=== PATIENT | male | born 1950 | race Caucasian/White ===

== ENCOUNTER 2023-07-09 13:54 | Observation (INO) ==
--- NOTE | 2023-07-09 14:04 | ED Triage Note ---
Date of Service July 09, 2023 Provider in Triage Author: Madan Randall History of Present Illness This patient was briefly evaluated while in triage. An abbreviated physical exam was performed. This patient is a 73-year-old Male who presents to the ED for evaluation bilateral feet/LE swelling x 2 weeks-redness and drainage in a few toes restricting water intake and increased Lasix in the last few days with no change had left nephrostomy tube placed 06/24, edema started after that Physical Exam GENERAL: NAD CARDIOVASCULAR: RRR RESPIRATORY: CTA EXT: 2+ pitting edema in ankles bilaterally, unable to visualize feet in triage. Initial orders for labs and / or imaging were placed and patient was placed in the waiting area until a bed is available. Please see further documentation for the full ED course.
--- NOTE | 2023-07-09 15:09 | XRay Report ---
XR chest 1V not portable CLINICAL HISTORY: BLE EDEMA COMPARISON STUDY: Chest radiograph December 28, 2022. FINDINGS: Left subclavian pacer/AICD is in place. There are median sternotomy wires and mediastinal s urgical clips. Moderate cardiomegaly is unchanged. There is no pneumothorax or pleural effusion. No c onsolidation is identified to suggest pneumonia. There is no radiographic evidence for pulmonary alise a. IMPRESSION: No acute cardiopulmonary findings. Stable cardiomegaly. ACT 112: Negative or not required by law. Electronically signed by: Biju Lr M.D. 07/09/2023 3:07 PM
[2023-07-09 15:21] LABS: Alanine Aminotransferase 33 U/L (7-52); Albumin Globulin Ratio 1.4 (0.9-2); Albumin Level 4.3 gm/dl (3.4-5.0); Alkaline Phosphatase 86 U/L (34-104); Anion Gap 8 (3-11); Aspartate Aminotransferase 37 U/L (13-39); Bilirubin,Total 0.7 mg/dl (0.2-1.0); Blood Urea Nitrogen 36 mg/dl (6-23); Carbon Dioxide 33 mmol/L (21-32); Chloride 103 mmol/L (98-107); Est GFR (Non-African American) 36.3 ml/min; Globulin 3.1 gm/dl (2.5-4.0); Glucose 100 mg/dl (70-99(Fasting)); Potassium 3.8 mmol/L (3.5-5.1); Sodium 144 mmol/L (136-145); Total Protein 7.4 gm/dl (6.0-8.3)
[2023-07-09 15:23] LABS: Basophils # (auto) 0.04 K/uL (0.00-0.20); Basophils % (auto) 0.4 %; Eosinophils % (auto) 0.9 %; Hematocrit (blood only) 40.5 % (42.0-52.0); Hemoglobin 13.3 g/dl (14.0-18.0); Immature Granulocytes # (auto) 0.03 K/uL (0.01-0.20); Immature Granulocytes % (auto) 0.3 %; Lymphocytes # (auto) 3.51 K/uL (1.20-3.40); Lymphocytes % (auto) 33.1 %; Mean Corpuscular Hemoglobin 33.1 pg (25.0-34.0); Mean Corpuscular Hgb Conc 32.8 g/dL (32.0-36.0); Mean Corpuscular Volume 100.7 fL (80.0-100.0); Monocytes % (auto) 6.6 %; Neutrophils # (auto) 6.22 K/uL (1.40-6.50); Neutrophils % (auto) 58.7 %; Platelet Count 288 K/uL (130-400); RDW Coefficient of Variation 15.2 % (11.5-14.5); RDW Standard Deviation 56.2 fL (36.4-46.3); Red Blood Count 4.02 M/uL (4.70-6.10)
[2023-07-09 15:27] LABS: Troponin I High Sensitivity 38.8 pg/ml (0-20)
[2023-07-09 15:36] LABS: INR 1.1 (0.9-1.1); Partial Thromboplastin Time 29 Seconds (21-31); Prothrombin Time 11.6 Seconds (9.0-12.0)
--- NOTE | 2023-07-09 16:57 | Ultrasound Report ---
US venous doppler LE BI CLINICAL HISTORY: BILATERAL LE EDEMA TECHNIQUE: Bilateral lower extremity real-time compression venous ultrasound with Color Doppler imagi ng. Utilizing real-time ultrasonic imaging multiple real time high-resolution ultrasonic images with compression and noncompression maneuvers of the deep venous system in addition to color doppler imagi ng were performed from the common femoral vein through the proximal calf veins. COMPARISON: None available at the time of this dictation. FINDINGS/IMPRESSION: Currently there is normal compressibility of the deep venous system from the common femoral vein thro ugh the proximal calf veins. No superficial venous thrombosis is identified. ACT 112: Negative or not required by law. Electronically signed by: Jay Ricketts M.D. 07/09/2023 4:55 PM
--- NOTE | 2023-07-09 17:42 | Emergency Department Note ---
Impression & Plan Edema, peripheral, SOB (shortness of breath) ED Provider Note NAME: CHETNA CHARLTON AGE: 73 SEX: M : 1950 ARRIVES VIA: Ambulance INFORMANT: Patient, ED PROVIDER(S): Leonardo Park DO CHIEF COMPLAINT: Leg swelling HPI: The patient is a 73-year-old male who presented to the emergency department for evaluation of leg swelling. The patient has a history of a bladder mass. He has a tube in his left kidney to help this drain because they were unable to pass a stent. The patient states has had blood in his urine. He started noticing lower extremity swelling recently. He has been increasing his Lasix. He has had no other changes to his medications. He has had some shortness of breath. The patient denies having any recent trauma. The patient denies having any headaches. ROS: See above HPI for pertinent positives & negatives. A total of 10 systems reviewed and were otherwise negative. PAST MEDICAL HISTORY: See Below PAST SURGICAL HISTORY: See Below FAMILY HISTORY: See Below SOCIAL HISTORY: See Below HOME MEDICATIONS: See Below ALLERGIES: See Below VITALS: See Below PHYSICAL EXAMINATION: GENERAL: Patient is awake alert in no acute distress patient is resting comfortably and showing no signs of anxiety EYES: The conjunctivae are clear. The pupils are round and reactive. EARS, NOSE, MOUTH AND THROAT: The nose is without any evidence of any deformity. NECK: The neck is nontender and supple. RESPIRATORY: Normal respiratory effort is noted there is no evidence of wheezing rhonchi or rales CARDIOVASCULAR: Regular rate and rhythm noted there no murmurs rubs or gallops normal S1 normal S2. GASTROINTESTINAL: The abdomen is soft. Abdomen is nontender. MUSCULOSKELETAL/EXTREMITIES: There is no evidence of gross deformity full range of motion is noted in the hips and shoulders. SKIN: Skin is warm and dry. Pedal edema was noted bilaterally. NEUROLOGIC: Patient is awake alert and oriented x3. MEDICAL DECISION MAKING: The patient is a 73-year-old male who presented to the emergency department for an evaluation of lower extremity swelling. The patient was found to have no acute EKG changes however his cardiac biomarkers were elevated. It is possible at this peripheral edema secondary to an ischemic episode. He does have a history of diabetes as well as peripheral neuropathy. I discussed the patient's laboratory and radiographic studies with him. He was treated with aspirin as well as Lasix in the emergency department. He was reevaluated multiple times. On reevaluation the patient was somewhat improved. I discussed his condition with the on-call [facility] hospitalist. They have agreed to evaluate the patient in the emergency department for further management and disposition. Triage Nursing notes reviewed. Prior medical records reviewed Vital Signs: reviewed and remarkable for no significant abnormalities Differential diagnosis: Reactive airway disease, pneumonia, pneumothorax, COPD, CHF, infections, cardiac ischemia, pulmonary embolism, musculoskeletal, gastrointestinal, as well as other pathologies. ER treatment provided: See below Diagnostics interpreted by me: ECG: EKG was obtained in the emergency department. My interpretation is atrial fibrillation at 95 bpm. PVCs were noted. Nonspecific ST segment depressions were noted. This was compared to a tracing from December 282022. The ectopy was new otherwise no significant changes were noted. Cardiac Monitoring: An order was placed for continuous cardiac monitoring. The monitor shows a rate of 56 bpm with atrial fibrillation. Laboratory studies: As stated above and show below. Imaging studies: See below. Radiographic imaging was reviewed by myself Consultation(s): I discussed this case with Dr. Greer who is on-call for the [facility] hospitalist group. 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 Ortega Dyslipidemia HTN (hypertension) Ischemic cardiomyopathy ICD 09/2021 History of gout CLL (chronic lymphocytic leukemia) known hx x years Diabetes mellitus, type 2 NIDDM Hard of hearing No hearing aids Myocardial Infarction 1996 & 2016 Chronic obstructive pulmonary disease 3L via continuous Bladder carcinoma bcg treatments Surgical History History of bladder surgery TURBT History of anesthesia reaction slow to wake History of bone marrow biopsy Right node Lymph node biopsy (04/23/23)- CLL/SLL, negative for metastatic carcinoma History of colonoscopy H/O wisdom tooth extraction History of tonsillectomy History of adenoidectomy History of cataract surgery bilateral S/P ICD (internal cardiac defibrillator) procedure Implanted 2021>last checked February 2022 ? type S/P ablation of atrial fibrillation S/P angioplasty no stents S/P CABG x 2 2016 Family History Other No family history of adverse response to anesthesia Social History Smoking Status: Former smoker Tobacco Type: Cigarettes Second Hand Exposure: No; Do You Dip or Chew Tobacco: No; Hx Alcohol Use: No Hx Substance Use: No Preferred Language: Sami Communication Ability: Effective Starch Cooker Required: No Beliefs That Will Affect Care: None Current Living Situation: Spouse Feels Safe at Home: Yes Assistive Devices: Oxygen - Continuous and Other Assistive Devices Comment: rollator walker Allergies Allergies Allergy/AdvReac Type Severity Reaction Status Date / Time enalapril Allergy Severe Angioedema Verified 07/09/23 18:50 brimonidine [From Combigan] Allergy Intermediate Hives Verified 07/09/23 18:50 timolol Allergy Intermediate Hives Verified 07/09/23 18:50 Home Meds Home Medications Medication Instructions Recorded Confirmed aspirin 81 mg tablet,delayed 81 mg PO QAM 11/01/22 07/09/23 release atorvastatin 40 mg tablet 40 mg PO PM 11/01/22 07/09/23 budesonide 160 mcg-glycopyr 9 2 inh inhalation BID 11/01/22 07/09/23 mcg-formot 4.8 mcg/actuation HFA inhaler (Breztri Aerosphere) calcium carbonate 600 mg calcium 600 mg PO QAM 11/01/22 07/09/23 (1,500 mg) tablet carvedilol 3.125 mg tablet 3.125 mg PO BID 11/01/22 07/09/23 cyanocobalamin (vitamin B-12) 1,000 mcg PO QAM 11/01/22 07/09/23 1,000 mcg tablet empagliflozin 10 mg tablet 10 mg PO QAM 11/01/22 07/09/23 (Jardiance) ferrous sulfate 27 mg iron tablet 27 mg PO QAM 11/01/22 07/09/23 furosemide 40 mg tablet (Lasix) 40 mg PO BID 11/01/22 07/09/23 hydralazine 25 mg tablet 25 mg PO TID 11/01/22 07/09/23 nitroglycerin 0.4 mg sublingual 0.4 mg sublingual UD PRN Chest Pain 11/01/22 07/09/23 tablet potassium chloride 20 mEq 20 meq PO QAM 11/01/22 07/09/23 tablet,extended release psyllium husk 3.4 gram/5.4 gram 1 tbsp PO QAM 11/01/22 07/09/23 oral powder (Metamucil) dimenhydrinate 50 mg tablet 50 mg PO Q8H PRN Nausea 12/14/22 07/09/23 (Dramamine) apixaban 5 mg tablet (Eliquis) 5 mg PO BID 05/03/23 07/09/23 acetaminophen 500 mg tablet 1,000 mg PO Q6H PRN Pain 05/09/23 07/09/23 cefadroxil 500 mg capsule 500 mg PO BID 07/09/23 07/09/23 multivitamin 1 tab PO QAM 07/09/23 07/09/23 Results & Data (ED) Vital Signs Vital Signs - 24 hr 07/09/23 14:04 07/09/23 17:52 07/09/23 18:00 Temperature 36.7 C Temperature Source Temporal Artery Scan Pulse Rate 83 100 H Pulse Rate [Left Apical] 83 Respiratory Rate 18 15 22 Respiratory Effort / Characteristics Non-Labored Non-Labored Respiratory Depth Normal Normal Blood Pressure 175/99 H 142/97 H Blood Pressure [Right Arm] 135/81 Blood Pressure Mean 124 112 Blood Pressure Mean [Right Arm] 99 Pulse Oximetry 95 98 93 Oxygen Delivery Method Nasal Cannula Nasal Cannula Nasal Cannula Oxygen Flow Rate 3 3 3 Sepsis Recent Fever Within 48 Hours No Sepsis New/Unexplained Change in Mental Status N/A Sepsis Action Taken by Nursing No Action Required 07/09/23 18:50 07/09/23 18:54 07/09/23 19:30 Temperature Temperature Source Pulse Rate 92 H 95 H 91 H Pulse Rate [Left Apical] Respiratory Rate 19 21 Respiratory Effort / Characteristics Respiratory Depth Blood Pressure 146/90 H Blood Pressure [Right Arm] Blood Pressure Mean 108 Blood Pressure Mean [Right Arm] Pulse Oximetry 94 95 Oxygen Delivery Method Nasal Cannula Nasal Cannula Oxygen Flow Rate 3 3 Sepsis Recent Fever Within 48 Hours Sepsis New/Unexplained Change in Mental Status Sepsis Action Taken by Prison Medications Current Medication List: was personally reviewed by me Laboratory Data Attestation: I reviewed the patient's lab results. 07/09/23 14:30 07/09/23 14:30 Lab Results 07/09/23 07/09/23 07/09/23 Range/Units 14:30 17:41 18:48 WBC 10.60 (4.8-10.8) K/ul RBC 4.02 L (4.70-6.10) M/uL Hgb 13.3 L (14.0-18.0) g/dl Hct 40.5 L (42.0-52.0) % MCV 100.7 H (80.0-100.0) fL MCH 33.1 (25.0-34.0) pg MCHC 32.8 (32.0-36.0) g/dL RDW Std Deviation 56.2 H (36.4-46.3) fL RDW Coeff of Sharmaine 15.2 H (11.5-14.5) % Plt Count 288 (130-400) K/uL MPV 11.0 (9.4-12.4) fL Immature Gran % (Auto) 0.3 % Neut % (Auto) 58.7 % Lymph % (Auto) 33.1 % [place] % (Auto) 6.6 % Eos % (Auto) 0.9 % Baso % (Auto) 0.4 % Neut # (Auto) 6.22 (1.40-6.50) K/uL Lymph # (Auto) 3.51 H (1.20-3.40) K/uL [place] # (Auto) 0.70 H (0.11-0.59) K/uL Eos # (Auto) 0.10 (0.00-0.50) K/uL Baso # (Auto) 0.04 (0.00-0.20) K/uL Immature Gran # (Auto) 0.03 (0.01-0.20) K/uL PT 11.6 (9.0-12.0) Seconds INR 1.1 (0.9-1.1) APTT 29 (21-31) Seconds PTT Ratio 1.0 Sodium 144 (136-145) mmol/L Potassium 3.8 (3.5-5.1) mmol/L Chloride 103 (98-107) mmol/L Carbon Dioxide 33 H (21-32) mmol/L Anion Gap 8 (3-11) BUN 36 H (6-23) mg/dl Creatinine 1.80 H (0.6-1.4) mg/dl Est Cr Clr Drug Dosing Not Reportable Est GFR ( Amer) 42.0 ml/min Est GFR (Non-Af Amer) 36.3 ml/min BUN/Creatinine Ratio 20.0 (10-20) Glucose 100 H (70-99(Fasting)) mg/dl Calcium 10.0 (8.6-10.3) mg/dl Total Bilirubin 0.7 (0.2-1.0) mg/dl AST 37 (13-39) U/L ALT 33 (7-52) U/L Alkaline Phosphatase 86 (34-104) U/L Troponin I High Sens 38.8 H 45.4 H (0-20) pg/ml B-Natriuretic Peptide 446 H (0-100) pg/ml Total Protein 7.4 (6.0-8.3) gm/dl Albumin 4.3 (3.4-5.0) gm/dl Globulin 3.1 (2.5-4.0) gm/dl Albumin/Globulin Ratio 1.4 (0.9-2) Urine Color Yellow Urine Appearance Clear (Clear) Urine pH 7.5 (4.5-7.5) Ur Specific [place] 1.018 (1.000-1.030) Urine Protein Negative (Negative) Urine Glucose (UA) 3+ H (Negative) Urine Ketones Negative (Negative) Urine Blood 1+ H (Negative) Urine Nitrite Negative (Negative) Urine Bilirubin Negative (Negative) Urine Urobilinogen Negative (Negative) Ur Leukocyte Esterase Negative (Negative) Urine WBC (Auto) 1-5 (0-5) /hpf Urine RBC (Auto) >30 H (0-4) /hpf U Hyaline Cast (Auto) 0 (0-5) /lpf U Epithel Cells (Auto) 0-5 (0-5) /lpf Urine Bacteria (Auto) Negative (Negative) Administered Medications Apixaban (Apixaban 5 Mg Tablet) 5 mg PO BID EMILEE Stop: 08/08/23 21:00 Last Admin: 07/09/23 22:34 Dose: 5 mg Documented By: ARSLAN Atorvastatin Calcium (Atorvastatin 40 Mg Tab) 40 mg PO PM EMILEE Stop: 08/08/23 21:00 Last Admin: 07/09/23 22:33 Dose: 40 mg Documented By: ARSLAN Carvedilol (Carvedilol 3.125 Mg Tab) 3.125 mg PO BID EMLIEE Stop: 08/08/23 21:00 Last Admin: 07/09/23 22:34 Dose: 3.125 mg Documented By: ARSLAN Hydralazine HCl (Hydralazine Hcl 25 Mg Tab) 25 mg PO TID EMILEE Stop: 08/08/23 21:00 Last Admin: 07/09/23 22:34 Dose: 25 mg Documented By: ARSLAN Ceftriaxone Sodium 2,000 mg/ (Dextrose) 50 mls @ 100 mls/hr IV Q24H EMILEE Stop: 07/16/23 21:59 Last Admin: 07/09/23 23:14 Dose: 100 mls/hr Documented By: ARSLAN Discontinued Medications Aspirin (Aspirin Chew 324 Mg) 324 mg PO NOW STA Stop: 07/09/23 19:00 Last Admin: 07/09/23 19:04 Dose: 324 mg Documented By: ANDREINA Furosemide (Furosemide 40 Mg/4 Ml Vial) 80 mg IV ONE ONE Stop: 07/09/23 17:38 Last Admin: 07/09/23 17:53 Dose: 80 mg Documented By: ANDREINA Imaging Data Attestation: I personally reviewed and interpreted this imaging study as follows: My Impression: 1 view chest x-ray was obtained in the emergency department. My interpretation is no free air or definite infiltrate, final report below. Radiologist's Impression: Chest X-Ray 07/09/23 14:04 XR chest 1V not portable CLINICAL HISTORY: BLE EDEMA COMPARISON STUDY: Chest radiograph December 28, 2022. FINDINGS: Left subclavian pacer/AICD is in place. There are median sternotomy wires and mediastinal surgical clips. Moderate cardiomegaly is unchanged. There is no pneumothorax or pleural effusion. No consolidation is identified to suggest pneumonia. There is no radiographic evidence for pulmonary edema. IMPRESSION: No acute cardiopulmonary findings. Stable cardiomegaly. ACT 112: Negative or not required by law. Electronically signed by: Biju Lr M.D. 07/09/2023 3:07 PM Venous Doppler Study 07/09/23 14:08 US venous doppler LE BI CLINICAL HISTORY: BILATERAL LE EDEMA TECHNIQUE: Bilateral lower extremity real-time compression venous ultrasound with Color Doppler imaging. Utilizing real-time ultrasonic imaging multiple real time high-resolution ultrasonic images with compression and noncompression maneuvers of the deep venous system in addition to color doppler imaging were performed from the common femoral vein through the proximal calf veins. COMPARISON: None available at the time of this dictation. FINDINGS/IMPRESSION: Currently there is normal compressibility of the deep venous system from the common femoral vein through the proximal calf veins. No superficial venous thrombosis is identified. ACT 112: Negative or not required by law. Electronically signed by: Jay Ricketts M.D. 07/09/2023 4:55 PM Discharge Plan Visit Data Chief Complaint: Swelling/Edema to Extremity Stated Complaint: BLE edema ED Provider: Leonardo Park Discharge Problem: Edema, peripheral, SOB (shortness of breath) Patient Disposition: Admitted As Inpatient Discharge Instructions Interventions: ED Discharge Assessment Last Done: 07/09/23 21:02
[2023-07-09] MEDS: FUROSEMIDE 40 MG/4 ML VIAL IV ONE (17:53)
[2023-07-09] MEDS: ASPIRIN CHEW 324 MG PO STA (19:04)
--- NOTE | 2023-07-09 19:11 | History & Physical Report ---
Date of Service July 09, 2023 Assessment & Plan (1) CAD (coronary artery disease): Plan: Michael is a 73-year-old male with a past medical history of nephrostomy tubes, troponin elevation with demand, A-fib, DM 2, bladder carcinoma, COPD, hypertension, CAD who presented for lower extremity swelling. He was found to have a elevated BNP with lower extremity edema and was given Lasix. He did have a minimally elevated Trope which up trended following Lasix. Extremity edema, history of heart failure with reduced ejection fraction s/p CABG, ICD implantation Without evidence of DVT on Dopplers No pulmonary edema or orthopnea. BNP is elevated at 446, but markedly improved compared to his prior of 1021 Patient feels he clinically improved following a dose of Lasix in the ER, however his troponin up trended. Has not had chest pain at any point. Will fol low overnight for renal stability and troponin trend. -Patient feels greatly improved following 1 dose of IV Lasix, will continue oral Lasix with stasis mobilizationincluding wrapping/ADAIR hose, SCDs, and elevation for at least 20 minutes 3 times daily Last echo with EF 25-30%, severely reduced 10/2022. ICD is present. No chest pain or EKG changes suggestive of ACS, suspect troponin due to demand versus clearance (2) Chronic respiratory failure with hypoxia: Plan: Chronic respiratory failure with COPD Baseline 3 L nasal cannula, no increased oxygen requirement admission Denies orthopnea or increased shortness of breath, no evidence of CHF exacerbation No wheezing to suggest COPD exacerbation Continue chronic treatments (3) Atrial fibrillation: Plan: Atrial fibrillation EKG with A-fib rate 90s no territorial ST/T wave changes on admission Eliquis continued. Patient has some scant blood-tinged drainage into his nephrostomy tube however this has been gradually improved and no large-volume bleeding or clots. Patient does clarify that while this was temporarily held previously he is currently taking this and took his last dose this morning Adequately rate controlled (4) Bladder carcinoma: Plan: Bladder carcinoma S/p TURBT 11/2022 to areas positive for high-grade disease Repeat TURBT 04/2023 with high-grade disease Left ureteral orifice was not able to be located patient had hydro and NYLA, patient subsequently had a nephrostomy tube placed Patient is currently following for ongoing management, anticipating a repeat cystoscopy around August and will follow-up with urology for BCG/Keytruda/gemcitabine/Doxil Taxol evaluation. Cholecystectomy was discussed but patient is a poor surgical candidate and was not recommended. Continue outpatient urologic follow-up Patient was under treatment with cefadroxil x 10-day course, this is continued and 11/09 (5) CLL (chronic lymphocytic leukemia): Plan: CLL Continueoutpatient monitoring, counts stable History of Present Illness Primary Care Provider: Corey Rodriguez is a 73yo M who presents for worsened CHARO edema which is becoming uncomfortabale due to weeping and tense edema. No orthopnea. No cellulitis. No fever/chills. Wroseneing ankle swelling Chronic shortness of breath, no change no chest pressure or chest pain no orthopnea NO recent increased salt intake No DVT Has LEFT nephrostomy tube. Functioning well, little blood but decreasing over time. No surrounding erythema, tenderness or warmth Feels much better since getting lasix. Swelling cuases some weeping which is painful to him. NO signs of cellulitis Has not been able to elevate legs or wrap legs. Does try to ambulate regularly with diabetic socks. Medical History: Reviewed Medications: Reviewed Surgical History: Reviewed Family history: Reviewed Allergies: Reviewed Social History: Reviewed Code Status:FUll COde Allergies Allergy/AdvReac Type Severity Reaction Status Date / Time enalapril Allergy Severe Angioedema Verified 07/09/23 18:50 brimonidine [From Combigan] Allergy Intermediate Hives Verified 07/09/23 18:50 timolol Allergy Intermediate Hives Verified 07/09/23 18:50 Home Medications Medication Instructions Recorded Confirmed Type aspirin 81 mg tablet,delayed 81 mg PO QAM 11/01/22 07/09/23 History release atorvastatin 40 mg tablet 40 mg PO PM 11/01/22 07/09/23 History budesonide 160 mcg-glycopyr 9 2 inh inhalation BID 11/01/22 07/09/23 History mcg-formot 4.8 mcg/actuation HFA inhaler (Breztri Aerosphere) calcium carbonate 600 mg calcium 600 mg PO QAM 11/01/22 07/09/23 History (1,500 mg) tablet carvedilol 3.125 mg tablet 3.125 mg PO BID 11/01/22 07/09/23 History cyanocobalamin (vitamin B-12) 1,000 mcg PO QAM 11/01/22 07/09/23 History 1,000 mcg tablet empagliflozin 10 mg tablet 10 mg PO QAM 11/01/22 07/09/23 History (Jardiance) ferrous sulfate 27 mg iron tablet 27 mg PO QAM 11/01/22 07/09/23 History furosemide 40 mg tablet (Lasix) 40 mg PO BID 11/01/22 07/09/23 History hydralazine 25 mg tablet 25 mg PO TID 11/01/22 07/09/23 History nitroglycerin 0.4 mg sublingual 0.4 mg sublingual UD PRN Chest Pain 11/01/22 07/09/23 History tablet potassium chloride 20 mEq 20 meq PO QAM 11/01/22 07/09/23 History tablet,extended release psyllium husk 3.4 gram/5.4 gram 1 tbsp PO QAM 11/01/22 07/09/23 History oral powder (Metamucil) dimenhydrinate 50 mg tablet 50 mg PO Q8H PRN Nausea 12/14/22 07/09/23 History (Dramamine) apixaban 5 mg tablet (Eliquis) 5 mg PO BID 05/03/23 07/09/23 History acetaminophen 500 mg tablet 1,000 mg PO Q6H PRN Pain 05/09/23 07/09/23 History cefadroxil 500 mg capsule 500 mg PO BID 07/09/23 07/09/23 History multivitamin 1 tab PO QAM 07/09/23 07/09/23 History Past Med/Surg History Medical History (Updated 07/09/23 @ 19:22 by Monico Pearson MD) Chronic respiratory failure with hypoxia CAD (coronary artery disease) CABG x 2 07/2016 Angioplasty 1996 Atrial fibrillation On Eliquis s/p ablation 2017 CKD (chronic kidney disease) Valvular heart disease History of cellulitis Right Great toe- completed antibiotics Swelling and erythema significantly improved but still has mild pain (improved from previous) ICD (implantable cardioverter-defibrillator) in place 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 Ortega Dyslipidemia HTN (hypertension) Ischemic cardiomyopathy ICD 09/2021 History of gout CLL (chronic lymphocytic leukemia) known hx x years Diabetes mellitus, type 2 NIDDM Hard of hearing No hearing aids Myocardial Infarction 1996 & 2017 Chronic obstructive pulmonary disease 3L via continuous Bladder carcinoma bcg treatments Surgical History History of bladder surgery TURBT History of anesthesia reaction slow to wake History of bone marrow biopsy Right node Lymph node biopsy (04/23/23)- CLL/SLL, negative for metastatic carcinoma History of colonoscopy H/O wisdom tooth extraction History of tonsillectomy History of adenoidectomy History of cataract surgery bilateral S/P ICD (internal cardiac defibrillator) procedure Implanted 2021>last checked February 2022 ? type S/P ablation of atrial fibrillation S/P angioplasty no stents S/P CABG x 2 2016 Family History Other No family history of adverse response to anesthesia Social History Smoking Status: Former smoker Tobacco Type: Cigarettes Second Hand Exposure: No; Do You Dip or Chew Tobacco: No; Hx Alcohol Use: No (quit 2010) Preferred Language: B[place] Communication Ability: Effective Crystal Finisher Required: No Beliefs That Will Affect Care: None Current Living Situation: Spouse Feels Safe at Home: Yes Assistive Devices: Oxygen - Continuous and Walker Physical Exam Physical Exam: General: A&Ox3. NAD. Cooperative. HEENT: Atraumatic, normocephalic. Pulm: CTAB A&P. -wheezes, -rales, -rhonchi. Symmetrical chest rise. No increased work of breathing. No respiratory distress. Cardiac: irir. Radial pulses intact and symmetrical. Trace JVD Abdominal: Nontender, nondistended, soft. BS present. L flank with nephrostomy tube intact C/D/I no signs of surroudnign infection Ext: bilate CHARO pitting edema Results & Data Results & Data Vital Signs (Past 12 Hours) Vital Signs Temp Pulse Pulse Resp BP BP Pulse Ox 07/09/23 18:54 95 H 07/09/23 18:50 92 H 19 94 07/09/23 18:00 100 H 22 142/97 H 93 07/09/23 17:52 83 15 135/81 98 07/09/23 14:04 36.7 C 83 18 175/99 H 95 O2 Del Method O2 Flow Rate 07/09/23 18:54 07/09/23 18:50 Nasal Cannula 3 07/09/23 18:00 Nasal Cannula 3 07/09/23 17:52 Nasal Cannula 3 07/09/23 14:04 Nasal Cannula 3 PG Care Time/CCT Total # of Minutes Spent Total Time Spent with Patient: Total time spent is greater than 50% in coordination of care (as documented) at patient's floor/unit and/or counseling patient: Coding Level of Care Code 04912 INT INP/OBS CARE MIN Diagnoses CAD (coronary artery disease) I25.10 Chronic respiratory failure with hypoxia J96.11 Atrial fibrillation I48.91 Bladder carcinoma C67.9 CLL (chronic lymphocytic leukemia) C91.10
[2023-07-09 19:13] LABS: Appearance Urine Clear (Clear); Bacteria Urine Automated Negative (Negative); Bilirubin Urine Negative (Negative); Blood Urine 1+ (Negative); Cast Urine Automated 0 /lpf (0-5); Color Urine Yellow; Epithelial Cell Urine Auto 0-5 /lpf (0-5); Glucose Urine UA 3+ (Negative); Ketones Urine Negative (Negative); Leukocyte Esterase Urine Negative (Negative); Nitrite Urine Negative (Negative); Protein Urine Negative (Negative); RBC Urine Automated >30 /hpf (0-4); Specific Gravity Urine 1.018 (1.000-1.030); Urobilinogen Urine Negative (Negative); pH Urine 7.5 (4.5-7.5)
[2023-07-09] MEDS ORDERED: NON-FORMULARY MEDICATION (Budesonide-Glycopyr-Formoterol [Breztri Aerosphere] 160-9-4.8 mc INH SCH (21:01)
[2023-07-09] MEDS ORDERED: NITROGLYCERIN SL 0.4 MG/TAB TAB SL PRN (21:01)
[2023-07-09] MEDS ORDERED: ACETAMINOPHEN 500 MG TAB PO PRN (21:01)
[2023-07-09] MEDS ORDERED: Patient's HEIGHT &/or WEIGHT Needed STA (21:17)
--- OUTSIDE RECORDS SUMMARY | 2023-07-09 22:03 | External Medical Summary | Continuity of Care Document ---
Author Name Unknown Organization [facility] Address [address] [place] [address] [id number] Encounter [facility] [id number] Date(s): 06/25/23 - 06/25/[address] [id number] [phone] Encounter Diagnosis Unspecified hydronephrosis(Final) - Malignant neoplasm of bladder, unspecified(Final) - Unspecified atrial fibrillation(Final) - Type 2 diabetes mellitus without complications(Final) - Atherosclerotic heart disease of [place] coronary artery without angina pectoris (Final) - Chronic lymphocytic leukemia of B-cell type not having achieved remission(Final) - half-way (current) use of aspirin(Final) - 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(Final) - Discharge Disposition: Home or Self Care Attending Physician: MD Lanette, Judi Banks Referring Physician: MD Carrie, Stef Rayo Allergies, Adverse Reactions, Alerts Substance Reaction Severity Status enalapril angioedema Active timolol hives Active Combigan hives Active Functional Status 06/25/23 Neurological Symptoms None ADLs Minimal assistance Facial Symmetry Symmetric Gait Steady Swallowing Difficulty NPO Level of Consciousness Neuro Alert Hallucinations Present None History of Fall in Last 3 Months Martinez N o Presence of Secondary Diagnosis Martinez No Use of Ambulatory Aid Martinez None/bedrest /nurse assist IV/Heparin Lock Fall Risk Martinez No Gait/Transferring Fall Risk Martinez Normal /bedrest/immobile Mental Status Fall Risk Martinez Oriented t o own ability Martinez Fall Risk Score 0 Martinez Fall Risk No Risk Speech Pattern Clear Medications aspirin 81 mg oral delayed release tablet Start: 06/25/23 9:54:00 EDT, 1 tab, PO, Daily Start Date: 06/25/23 Status: Ordered atorvastatin 40 mg oral tablet Start: 06/25/23 9:54:00 EDT, 1 tab, PO, Daily Start Date: 06/25/23 Status: Ordered Breztri Aerosphere Start: 06/25/23 9:52:00 EDT, 2 puff, inhaled, bid Start Date: 06/25/23 Status: Ordered calcium carbonate Start: 06/25/23 10:00:00 EDT, 600 = mg, PO, Daily Start Date: 06/25/23 Status: Ordered carvedilol 3.125 mg oral tablet Start: 06/25/23 9:55:00 EDT, 1 tab, PO, bid Start Date: 06/25/23 Status: Ordered Eliquis 5 mg oral tablet Start: 06/25/23 9:53:00 EDT, 1 tab, PO, bid Start Date: 06/25/23 Status: Ordered furosemide 40 mg oral tablet Start: 06/25/23 9:56:00 EDT, 1 tab, PO, bid, 1 tab before breakfast; 1 tab before supper Start Date: 06/25/23 Status: Ordered hydrALAZINE 25 mg oral tablet Start: 06/25/23 9:56:00 EDT, 1 tab, PO, tid Start Date: 06/25/23 Status: Ordered iron (as bisglycinate) 28 mg oral capsule Start: 06/25/23 10:02:00 EDT, 1 cap, PO, Daily Start Date: 06/25/23 Status: Ordered Jardiance 10 mg oral tablet Start: 06/25/23 9:52:00 EDT, 1 tab, PO, Daily, Disp# 30 tab Start Date: 06/25/23 Status: Ordered Metamucil 3.4 g/5.2 g oral powder for reconstitution Start: 06/25/23 10:03:00 EDT, 1.7 g =, PO, Daily Start Date: 06/25/23 Status: Ordered nitroglycerin Start: 06/25/23 10:09:00 EDT, See Instructions, 0.4 mg SL PRN Start Date: 06/25/23 Status: Ordered One-A-Day Men's Health Formula Start: 06/25/23 10:11:00 EDT, 1 tab, PO, Daily Start Date: 06/25/23 Status: Ordered potassium chloride 20 mEq oral tablet, extended release Start: 06/25/23 9:59:00 EDT, 1 tab, PO, Daily Start Date: 06/25/23 Status: Ordered Vitamin B12 Start: 06/25/23 10:00:00 EDT, 1,000 mcg =, PO, Daily Start Date: 06/25/23 Status: Ordered Results Laboratory List Name Date Basic Metabolic Panel (BMP) 06/25/23 Prothrombin Time w/ INR (INR) 06/25/23 Complete Blood Count (CBC w Platelets) Glucose Meter (GLUCOSE METER) 06/25/23 Most recent to oldest [Reference Range]: 1 eGFR CKD-EPI [>60 mL/min/1.73 m2] 46 mL/ min/1.73 m2 *LOW* (06/25/23 11:05 AM) MPV [9.0-12.2 fL] 10.8 fL (06/25/23 11:05 AM) RDW [11.5-14.2 %] 15.4 % *HI* (06/25/23 11:05 AM) Anion Gap [5-14 mmol/L] 11 mmol/L (06/25/23 11:05 AM) BUN [6-23 mg/dL] 27 mg/dL *HI* (06/25/23 11:05 AM) Ca [8.4-10.2 mg/dL] 9.4 mg/dL (06/25/23 11:05 AM) Cl- [98-107 mmol/L] 105 mmol/L (06/25/23 11:05 AM) HCO3 [22-29 mmol/L] 28 mmol/L (06/25/23 11:05 AM) Cret [0.70-1.30 mg/dL] 1.58 mg/dL *HI* (06/25/23 11:05 AM) Glu [74-109 mg/dL] 104 mg/dL 1 (06/25/23 11:05 AM) Gluc Meter [74-109 mg/dL] 100 mg/dL (06/25/23 10:29 AM) Hct [39-48 %] 44.1 % (06/25/23 11:05 AM) Hgb [13.0-17.0 g/dL] 14.0 g/dL (06/25/23 11:05 AM) INR [0.9-1.1] 1.2 2 *HI* (06/25/23 11:05 AM) K [3.5-5.1 mmol/L] 4.0 mmol/L (06/25/23 11:05 AM) MCH [28-33 pg] 32.5 pg (06/25/23 11:05 AM) MCHC [32-36 g/dL] 31.7 g/dL *LOW* (06/25/23 11:05 AM) MCV [81-96 fL] 102.3 fL *HI* (06/25/23 11:05 AM) Na [136-145 mmol/L] 144 mmol/L (06/25/23 11:05 AM) Plts [150-350 K/uL] 252 K/uL (06/25/23 11:05 AM) PT [12.0-14.2 seconds] 14.7 seconds *HI* (06/25/23 11:05 AM) RBC [4.40-5.60 M/uL] 4.31 M/uL *LOW* (06/25/23 11:05 AM) WBC [4.0-10.4 K/uL] 10.21 K/uL (06/25/23 11:05 AM) 1Result Comment: ADA recommendation for FASTING Serum/Plasma Glucose: Normal: 70-100 mg/dL Prediabetes: 100-125 mg/dL Diabetes: 126 mg/dL or higher 2Result Comment: Suggested therapeutic range for low-intensity Coumadin therapy for venous thromboembolism is INR 2.0-3.0 (ex: atrial fibrillation, history of TIA/stroke). For high risk patients, the suggested therapeutic range is INR 2.5-3.5 (ex: mechanical prosthetic valves). Radiology Reports * Exam Date Time Procedure Performing Provider Status 06/25/23 2:11 PM IR Neph Tube Placement Roxanne Martinez; Final Notes: (IR Neph Tube Placement) Reason For Exam: requesting left nephrostomy tube as unable to find ureteral orfice in bladder IR Neph Tube Placement EXAMINATION: IR Neph Tube Placement CLINICAL HISTORY: N13.30: Unspecified hydronephrosis; requesting left nephrostomy tube as unable to find ureteral orfice in bladder PROCEDURES: Moderate Sedation, Physician Supervised Percutaneous Antegrade Pyelogram Percutaneous Nephrostomy Placement Ultrasound Guidance for Access HISTORY: 73-year-old male with a history of Unspecified hydronephrosis; Bladder CA INDICATIONS: Urinary Obstruction PHYSICIANS: Judi Gama MD SEDATION: The risks and benefits of moderate sedation were discussed with the patient as part of the procedural informed consent process. Provider supervised intra- procedure moderate sedation was performed using a trained independent observer who monitored the patient's level of sedation and physiologic status throughout the procedure. Pre-procedure and post-procedure sedation assessments were performed inaccordance with institutional sedation policy and are documented separately in the medical record. Total Provider Sedation Supervision Time: 50 minutes. MEDICATIONS: Fentanyl 75 mcg Midazolam 1.50 mg CONTRAST: Omnipaque 350 - 8 ml DOSIMETRY: Fluoroscopy Time: 6.20 min Cumulative Dose: 179 mGy MEASUREMENTS: None. IMPLANTED DEVICES: Cook Multipurpose Drainage Catheter 10.2 FR 45 cm (Reference # [id number] Lot [id number]) SPECIMENS: None. EST. BLOOD LOSS: Minimal ml COMPLICATIONS: None. SUPPORTING DOCUMENTATION: Pre-Procedure Verification (Physician/Provider) [X]: Patient Name and Verified Against Patient ID Band [X]: Written Consent Verified (Patient, Procedure, Site/Side) [X]: Site Marking Verified (keep unchecked if not applicable) [X]: H \T\ P Completed (if required) Documented 06/25/2023 at 11:26:05 By Judi Gama MD Pre-Procedure Verification (Nurse/Technologist) [X]: Patient Name and Verified Against Patient ID Band [X]: Written Consent Verified (Patient, Procedure, Site/Side) [X]: Site Marking Verified (keep unchecked if not applicable) [X]: H \T\ P Verified (if required) Documented 06/25/2023 at 11:26:05 By BIANCA Arriaga Time Out [X]: Patient Identified by Name and [X]: Written Consent Verified (Patient,Procedure, Site/Side) [X]: Patient Positioned Correctly [X]: Patient Records Available (Order, Images) [X]: Anticipated Procedure Equipment / Devices Available [X]: Site / Side Marking Completed (keep unchecked if not applicable) [X]: Preprocedure Medications Administered (Antibiotics,Premedications, or n/a) [X]: All team members are present and are in agreement with Time Out (not documented prior to 08/18/2017). Documented 06/25/2023 at 13:19:33 By BIANCA Carey Physician Post Procedure Sign Out [X]: Diagnosis Confirmed [X]: Performed Procedure Confirmed [ ]: Specimen Identification Confirmed [X]: Patient Recovery / Post Procedure Care Concerns Discussed Documented 06/25/2023 at 14:19:08 By Judi Gama MD TECHNIQUE: The risks, benefits and goals of percutaneous nephrostomy tube placement under conscioussedation were discussed with the patient. Risks include bleeding, infection, injury to adjacent structures and the risks of conscious sedation. The patient desired to proceed and signed informed consent. A time out was performed, verifying patient identity, procedure to be performed and patient allergies. The patient was placed prone on the angiography table. The left flank was prepared and draped in the usual sterile fashion. 1% lidocaine without epinephrine was used as a local anesthetic. Access to the left collecting system was obtained using a 22G InRad needle under ultrasound guidance. Positioning within the renal collecting system was verified with the return of urine. An antegrade pyelogram was performed with injection of contrast into the collecting system, followed by injection of air to demonstrate a posterior lower pole calyx. The initial access was determined to be appropriate. A 0.018 wire was inserted, and passed into therenal pelvis. The needle was withdrawn, and the Accustick dilator set inserted. A 0.035 Amplatz wire was inserted. The dilator was withdrawn, and replaced with a 10.2Fr, 45 cm MPD. The loop of the catheter was formed and locked. A post-placement nephrostogram was performed, and a permanent image was obtained documenting the catheter's position. The catheter was secured to the skin with 2.0 Ethilon x 2. Dressings were applied. The catheter was placed to gravity drainage. FINDINGS: The antegrade pyelogram demonstrates moderate hydronephrosis with complete distal ureteral occlusion at the level of the inferior aspect of the left sacroiliac joint. The percutaneous nephrostomy tube is noted to be within the left renal pelvis. IMPRESSION: Successful placement of left percutaneous nephrostomy tube. PLAN: A longer catheter was placed due to need for the patient to perform his own tube care. Check with patient at the time of the next visit if additional length, via extension tubing, will be necessary to facilitate self-care. Workstation ID: [id number] Final Dictated by:MD Gama Allene S Dictated DT/TM:06/25/2023 2:33 Signed by:MD Gama Allene S Signed (Electronic Signature):06/25/2023 2:32 p Vital Signs Most recent to oldest [Reference Range]: 1 2 3 Patient Weight 77 kg (06/25/23 8:52 AM) Temperature [36.5-37.9 DegC] 36.6 DegC (06/25/23 4:17 PM) 36.5 DegC (06/25/23 2:13 PM) 36 DegC *LOW* (06/25/23 9:23 AM) Heart Rate 79 bpm (06/25/23 4:17 PM) 93 bpm (06/25/23 3:13 PM) 99 bpm (06/25/23 3:00 PM) Respiratory Rate 10 br/min (06/25/23 4:17 PM) 22 br/min (06/25/23 3:13 PM) 24 br/min (06/25/23 3:00 PM) Blood Pressure 145/82mmHg (06/25/23 4:17 PM) 125/69mmHg (06/25/23 3:13 PM) 144/86mmHg (06/25/23 3:00 PM) Mean Blood Pressure 102 mmHg (06/25/23 4:17 PM) 86 mmHg (06/25/23 3:13 PM) 98 mmHg (06/25/23 3:00 PM) Cuff Pulse Pressure 63 mmHg (06/25/23 4:17 PM) 56 mmHg (06/25/23 3:13 PM) 58 mmHg (06/25/23 3:00 PM) BP Location # 1 Left Arm (06/25/23 2:46 PM) Left Arm (06/25/23 2:30 PM) Left Arm (06/25/23 2:13 PM) Social History Social History Type Response Sex Male Pre-OP H & P * MD Gama Allene S: PERFORM Event Display: Pre-OP H & P Authored Date: [id number] Interventional Radiology Pre-procedure History and Physical Patient Name: CHETNA CHARLTON Date Of : 1950 Medical Record: [id number] Date of Service: 2023-06-25 Planned Procedure: IR Neph Tube Placement Reason For Consult: : Nephrostomy Tube Change History of Present Illness: 72y/o M w/ Afib on eliquis, DM, CAD, CLL & recurrence of high grade non muscle invasive bladderCA on s/p induction BCG, increasing creatinine, adenopathy and L hydro. Req L PCN. Past Medical and Surgical History: CLL, CAD, DM, High grade bladder cancer,, Referring physician, Dr. Butler, performed TURBT 05/09/23 and was not able to identify the left ureteral orifice at the time of resection as his previous tumor site had covered this. Allergies: No Recorded Allergies. Medications: Eliquis, Aspirin, No further medications provided from referring clinician. Other Studies: Outside CT 10/19/22 shows atrophic L kidney with moderate hydronephrosis Physical Exam: LOC / Mental Status: Awake, Alert, Oriented Airway: Mallampati Score: Class 3: Visualization only of the base of the uvula Lungs: Clear Cardiac: Normal Sinus Rhythm ASA Classification: Class II: Patient with mild systemic disease Assessment: 72y/o M w/ Afib on eliquis, DM, CAD, CLL & recurrence of high grade non muscle invasive bladderCA on s/p induction BCG, increasing creatinine, adenopathy and L hydro. Req L PCN. Plan: Left Percutaneous Nephrostomy Tube Placement Sedation / Anesthesia Plan: Moderate Sedation Consent by Patient Electronic Signature on File Electronically Reviewed/Signed by: Judi Gama MD Author Signature Dt/Tm:06/25/2023 11:25 AM [facility] [place] [facility] Anesthesia records * Services, CPDI: PERFORM Event Display: Sedation & Analgesia Record Authored Date: [id number]
[2023-07-09] MEDS: ATORVASTATIN 40 MG TAB PO SCH (22:33)
[2023-07-09] MEDS: APIXABAN 5 MG TABLET PO SCH (22:34)
[2023-07-09] MEDS: hydrALAZINE HCL 25 MG TAB PO SCH (22:34)
[2023-07-09] MEDS: carvediloL 3.125 MG TAB PO SCH (22:34)
[2023-07-09] MEDS: cefTRIAXone SODIUM 2,000 MG in DEXTROSE 5 % MINI-B 50 ML IV SCH (23:14)
[2023-07-10 07:36] LABS: Basophils # (auto) 0.03 K/uL (0.00-0.20); Basophils % (auto) 0.3 %; Eosinophils # (auto) 0.12 K/uL (0.00-0.50); Hematocrit (blood only) 39.8 % (42.0-52.0); Hemoglobin 12.9 g/dl (14.0-18.0); Immature Granulocytes # (auto) 0.04 K/uL (0.01-0.20); Immature Granulocytes % (auto) 0.3 %; Lymphocytes # (auto) 3.07 K/uL (1.20-3.40); Lymphocytes % (auto) 26.5 %; Mean Corpuscular Hemoglobin 32.3 pg (25.0-34.0); Mean Corpuscular Hgb Conc 32.4 g/dL (32.0-36.0); Mean Corpuscular Volume 99.5 fL (80.0-100.0); Mean Platelet Volume 10.7 fL (9.4-12.4); Monocytes # (auto) 0.78 K/uL (0.11-0.59); Monocytes % (auto) 6.7 %; Neutrophils # (auto) 7.53 K/uL (1.40-6.50); Neutrophils % (auto) 65.2 %; Platelet Count 293 K/uL (130-400); RDW Coefficient of Variation 15.1 % (11.5-14.5); RDW Standard Deviation 55.7 fL (36.4-46.3); White Blood Count 11.57 K/ul (4.8-10.8)
[2023-07-10] MEDS: CALCIUM CARBONATE 1250MG TAB PO SCH (07:54)
[2023-07-10] MEDS: ASPIRIN 81 MG ECTAB PO SCH (07:54)
[2023-07-10] MEDS: FLUTICASONE FUROATE 200MCG 14 PUFFS/INHALER INH SCH (07:54)
[2023-07-10] MEDS: FUROSEMIDE 40 MG TAB PO SCH (07:54)
[2023-07-10] MEDS: CYANOCOBALAMIN (B-12) 500 MCG TABLET PO SCH (07:54)
[2023-07-10] MEDS: PSYLLIUM or GUAR GUM FIBER 4GM PACKET PO SCH (07:55)
[2023-07-10] MEDS: UMECLIDINIUM/VILANTEROL 62.5/25MCG 7 PUFFS/INHALER INH SCH (07:55)
[2023-07-10] MEDS: POTASSIUM CHLORIDE CRTAB 20 MEQ TABCR PO SCH (07:55)
[2023-07-10 08:49] LABS: BUN Creatinine Ratio 17.9 (10-20); Calcium 9.3 mg/dl (8.6-10.3); Creatinine Clr Calc Pharmacy 37.2 ml/min; Est GFR (African American) 44.1 ml/min; Potassium 3.5 mmol/L (3.5-5.1)
[2023-07-10] MEDS ORDERED: NON-FORMULARY MEDICATION (Ferrous Sulfate 27 mg iron Tablet) PO SCH (09:00)
[2023-07-10] MEDS: ACETAMINOPHEN 325 MG TAB PO PRN (10:21)
--- NOTE | 2023-07-10 15:31 | Hospitalist Progress Note ---
Date of Service July 10, 2023 Assessment & Plan (1) CAD (coronary artery disease): Plan: Michael is a 73-year-old male with a past medical history of nephrostomy tubes, troponin elevation with demand, A-fib, DM 2, bladder carcinoma, COPD, hypertension, CAD who presented for lower extremity swelling. He was found to have a elevated BNP with lower extremity edema and was given Lasix. He did have a minimally elevated Trope which up trended following Lasix. Extremity edema, history of heart failure with reduced ejection fraction s/p CABG, ICD implantation Without evidence of DVT on Dopplers No pulmonary edema or orthopnea. BNP is elevated at 446, but markedly improved compared to his prior of 1021 Patient feels he clinically improved following a dose of Lasix in the ER, however his troponin up trended. Has not had chest pain at any point. Will fol low overnight for renal stability and troponin trend. -Patient feels greatly improved following 1 dose of IV Lasix, will continue oral Lasix with stasis mobilizationincluding wrapping/ADAIR hose, SCDs, and elevation for at least 20 minutes 3 times daily Last echo with EF 25-30%, severely reduced 10/2022. ICD is present. No chest pain or EKG changes suggestive of ACS, suspect troponin due to demand versus clearance (2) Chronic respiratory failure with hypoxia: Plan: Chronic respiratory failure with COPD Baseline 3 L nasal cannula, no increased oxygen requirement admission Denies orthopnea or increased shortness of breath, no evidence of CHF exacerbation No wheezing to suggest COPD exacerbation Continue chronic treatments (3) Atrial fibrillation: Plan: Atrial fibrillation EKG with A-fib rate 90s no territorial ST/T wave changes on admission Eliquis continued. Patient has some scant blood-tinged drainage into his nephrostomy tube however this has been gradually improved and no large-volume bleeding or clots. Patient does clarify that while this was temporarily held previously he is currently taking this and took his last dose this morning Adequately rate controlled (4) Bladder carcinoma: Plan: Bladder carcinoma S/p TURBT 11/2022 to areas positive for high-grade disease Repeat TURBT 04/2023 with high-grade disease Left ureteral orifice was not able to be located patient had hydro and NYLA, patient subsequently had a nephrostomy tube placed Patient is currently following for ongoing management, anticipating a repeat cystoscopy around August and will follow-up with urology for BCG/Keytruda/gemcitabine/Doxil Taxol evaluation. Cholecystectomy was discussed but patient is a poor surgical candidate and was not recommended. Continue outpatient urologic follow-up Patient was under treatment with cefadroxil x 10-day course, this is continued and 11/09 (5) CLL (chronic lymphocytic leukemia): Plan: CLL Continueoutpatient monitoring, counts stable Plan Plan to discharge patient tomorrow provided renal function stable. Admission and Anticipated Discharge Date Admission Date: July 09, 2023 Subjective Patient feels better overall. Denies chest pain or shortness of breath. Review of Systems Review of Systems: All systems reviewed & are unremarkable except as noted in Subjective Physical Exam Physical Exam: General: Awake, conversant Heart: S1, S2/regular rate and rhythm, no murmur rubs or gallops Lungs: Clear to auscultation bilaterally. Normal effort Abdomen: Soft/nontender/nondistended. No hepatosplenomegaly Extremities: No clubbing/cyanosis. Bilateral lower extremity pitting 1+ edema Behavior: Appropriate, cooperative Results & Data Results & Data Vital Signs (Past 12 Hours) Vital Signs Temp Pulse Pulse Resp BP BP Pulse Ox 07/10/23 15:18 36.7 C 45 L 20 164/72 H 93 07/10/23 15:12 85 07/10/23 10:59 36.4 C L 88 16 137/78 91 07/10/23 09:19 96 H 07/10/23 07:39 96 H 07/10/23 07:21 07/10/23 07:17 36.5 C 100 H 16 137/76 96 O2 Del Method O2 Flow Rate 07/10/23 15:18 Room Air 07/10/23 15:12 07/10/23 10:59 Nasal Cannula 3 07/10/23 09:19 07/10/23 07:39 07/10/23 07:21 Nasal Cannula 3 07/10/23 07:17 Nasal Cannula 3 Laboratory Results Abnormal lab results 07/09/23 07/09/23 07/09/23 Range/Units 17:41 18:48 22:21 WBC (4.8-10.8) K/ul RBC (4.70-6.10) M/uL Hgb (14.0-18.0) g/dl Hct (42.0-52.0) % RDW Std Deviation (36.4-46.3) fL RDW Coeff of Sharmaine (11.5-14.5) % Neut # (Auto) (1.40-6.50) K/uL Stevens # (Auto) (0.11-0.59) K/uL Carbon Dioxide (21-32) mmol/L BUN (6-23) mg/dl Creatinine (0.6-1.4) mg/dl Glucose (70-99(Fasting)) mg/dl POC Glucose 114 H (70-99) mg/dl Troponin I High Sens 45.4 H (0-20) pg/ml Urine Glucose (UA) 3+ H (Negative) Urine Blood 1+ H (Negative) Urine RBC (Auto) >30 H (0-4) /hpf 07/10/23 07/10/23 07/10/23 Range/Units 07:14 07:58 11:58 WBC 11.57 H (4.8-10.8) K/ul RBC 4.00 L (4.70-6.10) M/uL Hgb 12.9 L (14.0-18.0) g/dl Hct 39.8 L (42.0-52.0) % RDW Std Deviation 55.7 H (36.4-46.3) fL RDW Coeff of Sharmaine 15.1 H (11.5-14.5) % Neut # (Auto) 7.53 H (1.40-6.50) K/uL Stevens # (Auto) 0.78 H (0.11-0.59) K/uL Carbon Dioxide 34 H (21-32) mmol/L BUN 31 H (6-23) mg/dl Creatinine 1.73 H (0.6-1.4) mg/dl Glucose 116 H (70-99(Fasting)) mg/dl POC Glucose 113 H 124 H (70-99) mg/dl Troponin I High Sens (0-20) pg/ml Urine Glucose (UA) (Negative) Urine Blood (Negative) Urine RBC (Auto) (0-4) /hpf PG Care Time/CCT Total # of Minutes Spent Total Time Spent with Patient: Total time spent is greater than 50% in coordination of care (as documented) at patient's floor/unit and/or counseling patient: Coding Level of Care Code 72526 SUB INP/OBS CARE MIN Diagnoses CAD (coronary artery disease) I25.10 Chronic respiratory failure with hypoxia J96.11 Atrial fibrillation I48.91 Bladder carcinoma C67.9 CLL (chronic lymphocytic leukemia) C91.10
[2023-07-10] MEDS: oxyCODONE HCL IR 5 MG TAB (IMMEDIATE RELEASE) PO STA (18:14)
[2023-07-11 07:13] LABS: Basophils # (auto) 0.04 K/uL (0.00-0.20); Basophils % (auto) 0.3 %; Eosinophils # (auto) 0.08 K/uL (0.00-0.50); Eosinophils % (auto) 0.6 %; Hemoglobin 13.2 g/dl (14.0-18.0); Immature Granulocytes # (auto) 0.05 K/uL (0.01-0.20); Immature Granulocytes % (auto) 0.4 %; Lymphocytes # (auto) 3.61 K/uL (1.20-3.40); Lymphocytes % (auto) 27.9 %; Mean Corpuscular Hemoglobin 32.4 pg (25.0-34.0); Mean Corpuscular Hgb Conc 32.2 g/dL (32.0-36.0); Mean Corpuscular Volume 100.5 fL (80.0-100.0); Mean Platelet Volume 10.6 fL (9.4-12.4); Monocytes # (auto) 1.03 K/uL (0.11-0.59); Neutrophils # (auto) 8.12 K/uL (1.40-6.50); Neutrophils % (auto) 62.8 %; Platelet Count 282 K/uL (130-400); RDW Coefficient of Variation 15.1 % (11.5-14.5); RDW Standard Deviation 55.6 fL (36.4-46.3); Red Blood Count 4.08 M/uL (4.70-6.10); White Blood Count 12.93 K/ul (4.8-10.8)
[2023-07-11 07:29] LABS: BUN Creatinine Ratio 16.8 (10-20); Calcium 9.2 mg/dl (8.6-10.3); Creatinine Clr Calc Pharmacy 35.1 ml/min; Est GFR (African American) 40.9 ml/min; Est GFR (Non-African American) 35.3 ml/min; Potassium 3.5 mmol/L (3.5-5.1)
--- NOTE | 2023-07-11 14:44 | Hospitalist Progress Note ---
Date of Service July 11, 2023 Assessment & Plan (1) CAD (coronary artery disease): Plan: Michael is a 73-year-old male with a past medical history of nephrostomy tubes, troponin elevation with demand, A-fib, DM 2, bladder carcinoma, COPD, hypertension, CAD who presented for lower extremity swelling. He was found to have a elevated BNP with lower extremity edema and was given Lasix. Extremity edema, history of heart failure with reduced ejection fraction s/p CA BG, ICD implantation Without evidence of DVT on Dopplers No pulmonary edema or orthopnea. BNP is elevated at 446, but markedly improved compared to his prior of 1021 Patient feels he clinically improved following a dose of Lasix in the ER, however his troponin up trended. Has not had chest pain at any point. -Patient feels greatly improved following 1 dose of IV Lasix, will continue oral Lasix with stasis mobilization including wrapping/ADAIR hose, SCDs, and elevation for at least 20 minutes 3 times daily Last echo with EF 25-30%, severely reduced 10/2022. ICD is present. No chest pain or EKG changes suggestive of ACS, suspect troponin due to demand versus clearance (2) Chronic respiratory failure with hypoxia: Plan: Chronic respiratory failure with COPD Baseline 3 L nasal cannula, no increased oxygen requirement admission Denies orthopnea or increased shortness of breath, no evidence of CHF exacerbation No wheezing to suggest COPD exacerbation Continue chronic treatments (3) Atrial fibrillation: Plan: Atrial fibrillation EKG with A-fib rate 90s no territorial ST/T wave changes on admission Eliquis continued. Patient has some scant blood-tinged drainage into his nephrostomy tube however this has been gradually improved and no large-volume bleeding or clots. Patient does clarify that while this was temporarily held previously he is currently taking this and took his last dose this morning Adequately rate controlled (4) Bladder carcinoma: Plan: Bladder carcinoma S/p TURBT 11/2022 to areas positive for high-grade disease Repeat TURBT 04/2023 with high-grade disease Left ureteral orifice was not able to be located patient had hydro and NYLA, patient subsequently had a nephrostomy tube placed Patient is currently following for ongoing management, anticipating a repeat cystoscopy around August and will follow-up with urology for BCG/Keytruda/gemcitabine/Doxil Taxol evaluation. Cholecystectomy was discussed but patient is a poor surgical candidate and was not recommended. Continue outpatient urologic follow-up Patient was under treatment with cefadroxil x 10-day course, this is continued and 11/09 (5) CLL (chronic lymphocytic leukemia): Plan: CLL Continueoutpatient monitoring WBC count up to (6) Wound of right foot: Plan: Wound care involved Patient is on ceftriaxone Slight leukocytosis Right ankle swelling and difficult to palpate pulses Ordered arterial Doppler Admission and Anticipated Discharge Date Admission Date: July 11, 2023 Subjective Patient feels well overall. No chest pain or shortness of breath. Leg swelling is coming down on the left side. Right ankle is still swollen. Wound care did dressing on which the right foot. No fever Review of Systems Review of Systems: All systems reviewed & are unremarkable except as noted in Subjective Physical Exam Physical Exam: General: Awake, conversant Heart: S1, S2/regular rate and rhythm, no murmur rubs or gallops Lungs: Clear to auscultation bilaterally. Normal effort Abdomen: Soft/nontender/nondistended. No hepatosplenomegaly Extremities: No clubbing/cyanosis. Right ankle swelling. No swelling of the left ankle Behavior: Appropriate, cooperative Results & Data Results & Data Vital Signs (Past 12 Hours) Vital Signs Temp Pulse Pulse Resp BP Pulse Ox O2 Del Method 07/11/23 11:22 36.6 C 76 17 112/62 96 Nasal Cannula 07/11/23 09:10 Nasal Cannula 07/11/23 07:20 36.4 C L 76 16 128/68 94 Nasal Cannula 07/11/23 07:17 98 H 07/11/23 03:09 36.7 C 99 H 20 127/88 95 Nasal Cannula O2 Flow Rate 07/11/23 11:22 3 07/11/23 09:10 3 07/11/23 07:20 3 07/11/23 07:17 07/11/23 03:09 3 Laboratory Results Abnormal lab results 07/10/23 07/11/23 Range/Units 17:38 06:52 WBC 12.93 H (4.8-10.8) K/ul RBC 4.08 L (4.70-6.10) M/uL Hgb 13.2 L (14.0-18.0) g/dl Hct 41.0 L (42.0-52.0) % MCV 100.5 H (80.0-100.0) fL RDW Std Deviation 55.6 H (36.4-46.3) fL RDW Coeff of Sharmaine 15.1 H (11.5-14.5) % Neut # (Auto) 8.12 H (1.40-6.50) K/uL Lymph # (Auto) 3.61 H (1.20-3.40) K/uL Winston # (Auto) 1.03 H (0.11-0.59) K/uL BUN 31 H (6-23) mg/dl Creatinine 1.84 H (0.6-1.4) mg/dl Glucose 115 H (70-99(Fasting)) mg/dl POC Glucose 117 H (70-99) mg/dl PG Care Time/CCT Total # of Minutes Spent Total Time Spent with Patient: Total time spent is greater than 50% in coordination of care (as documented) at patient's floor/unit and/or counseling patient: Coding Level of Care Code 25610 SUB INP/OBS CARE 2/35MIN Diagnoses CAD (coronary artery disease) I25.10 Chronic respiratory failure with hypoxia J96.11 Atrial fibrillation I48.91 Bladder carcinoma C67.9 CLL (chronic lymphocytic leukemia) C91.10 Wound of right foot S91.301A
--- NOTE | 2023-07-11 15:05 | Electrocardiogram Report ---
Test Reason : Blood Pressure : / mmHG Vent. Rate : 095 BPM Atrial Rate : 000 BPM P-R Int : 000 ms QRS Dur : 114 ms QT Int : 392 ms P-R-T Axes : 000 007 125 degrees QTc Int : 492 ms Atrial fibrillation with premature ventricular or aberrantly conducted complexes Incomplete left bundle block Nonspecific ST and T wave abnormality Abnormal ECG When compared with ECG of 28-DEC-2022 12:20, Nonspecific T wave abnormality, improved in Inferior leads Confirmed by Michael Medina ([id number]) on 07/11/2023 3:05:28 PM Referred By: Confirmed By:Michael Medina
[2023-07-11] MEDS: oxyCODONE HCL IR 5 MG TAB (IMMEDIATE RELEASE) PO STA (17:51)
[2023-07-11] MEDS: DICLOFENAC SOD 1% GEL 100 GM TUBE EXT PRN (22:36)
[2023-07-11] MEDS: CYCLOBENZAPRINE HCL 5 MG TAB PO STA (22:56)
--- NOTE | 2023-07-11 23:38 | Ultrasound Report ---
Exam(s): US ARTERIAL RIGHT LOWER EXTREMITY EXAM: US Duplex Right Lower Extremity Arteries CLINICAL HISTORY: Reason for exam: R foot wound. TECHNIQUE: Real-time duplex ultrasound scan of the right lower extremity arteries integrating B-mode two-dimensional vascular structure, Doppler spectral analysis and color flow Doppler imaging. COMPARISON: No relevant prior studies available. FINDINGS: Very extensive plaques throughout the arteries of the right lower extremity. There does not appear to be a complete occlusion; however, all flow in the right lower extremity appears to be monophasic. Flow is seen in the posterior tibial artery and anterior tibial artery. There appears to be a small amount of monophasic flow in the dorsalis pedis. The AYANA of the right lower extremity is markedly low at 0.19. IMPRESSION: Minimal abnormal monophasic flow throughout the majority of the right lower extremity. No complete occlusion identified. Markedly decreased right AYANA of 0.19. Electronically signed by: Ziggy Judge MD 07/11/23 23:38 PM
[2023-07-12 08:08] LABS: Basophils # (auto) 0.04 K/uL (0.00-0.20); Basophils % (auto) 0.3 %; Eosinophils # (auto) 0.03 K/uL (0.00-0.50); Eosinophils % (auto) 0.2 %; Hematocrit (blood only) 39.2 % (42.0-52.0); Hemoglobin 12.9 g/dl (14.0-18.0); Immature Granulocytes # (auto) 0.06 K/uL (0.01-0.20); Immature Granulocytes % (auto) 0.4 %; Lymphocytes # (auto) 3.51 K/uL (1.20-3.40); Lymphocytes % (auto) 23.4 %; Mean Corpuscular Hemoglobin 32.8 pg (25.0-34.0); Mean Corpuscular Hgb Conc 32.9 g/dL (32.0-36.0); Mean Corpuscular Volume 99.7 fL (80.0-100.0); Mean Platelet Volume 10.8 fL (9.4-12.4); Monocytes % (auto) 7.3 %; Neutrophils # (auto) 10.26 K/uL (1.40-6.50); Neutrophils % (auto) 68.4 %; Platelet Count 296 K/uL (130-400); RDW Standard Deviation 55.4 fL (36.4-46.3); Red Blood Count 3.93 M/uL (4.70-6.10)
[2023-07-12 08:31] LABS: BUN Creatinine Ratio 18.2 (10-20); Calcium 9.1 mg/dl (8.6-10.3); Creatinine Clr Calc Pharmacy 36.8 ml/min; Est GFR (African American) 43.2 ml/min; Est GFR (Non-African American) 37.3 ml/min; Potassium 3.7 mmol/L (3.5-5.1)
[2023-07-12] MEDS: OPTIRAY 320 125ml IV ONE (10:56)
--- NOTE | 2023-07-12 11:30 | CT Scan Report ---
CT ANGIOGRAM OF THE ABDOMEN AND PELVIS WITH BILATERAL LOWER EXTREMITY RUNOFF CLINICAL HISTORY: Nonhealing right foot wound. COMPARISON STUDY: Right lower extremity arterial ultrasound dated 07/11/2023. TECHNIQUE: Following the IV administration of 118 cc of Optiray 320, CT angiogram of the abdomen and pelvis with bilateral lower externally runoff was performed from the lung bases to the feet. Images a re reviewed in the axial, sagittal, and coronal planes. 3-D MIPS images are created and assessed. IV contrast was administered without complication. A dose lowering technique was utilized adhering to t he principles of ALARA. CT DOSE: 1988.06 mGy.cm FINDINGS: Lower chest: The heart is enlarged and without pericardial effusion. The coronary arteries are densel y calcified. Pacemaker leads are in place. There is mild aneurysmal dilatation of the partially visua lized ascending thoracic aorta which measures up to 4.2 cm in diameter. Advanced emphysematous change is noted. Scarring/atelectasis is noted at both lung bases. No airspace consolidation or pleural eff usion is identified. There is a small hiatal hernia. Mildly enlarged mediastinal lymph nodes are part ially imaged. A precarinal node measures up to 13 mm short axis. Liver: Imaged portions of the liver show diffusely diminutive attenuation suggesting steatosis. There is no intrahepatic biliary ductal dilatation. The main portal vein appears patent. Gallbladder: Unremarkable. Spleen: Imaged portions of the spleen show normal size and attenuation. There is heterogeneous arteri al phase enhancement. Pancreas: Unremarkable. Adrenal glands: There is nonspecific thickening of the adrenal glands. Kidneys: There is asymmetric cortical atrophy of the left kidney as compared to the right. A percutan eous nephrostomy tube is in place on the left. There is no hydronephrosis. The left ureter is dilated to the level of the bladder. There is a long hyperdense filling defect seen within the mid to distal left ureter. There is heterogeneous diminished enhancement of the left kidney as compared to the rig ht. Small renal cysts measure up to 1.5 cm. Additional subcentimeter cortical hypodensities also like ly represent cysts but are too small for definitive characterization. A 3 mm nonobstructing calculus is seen on the right. There is asymmetric left-sided perinephric infiltration. Abdominal aorta and iliac arteries: There is advanced atherosclerotic calcification and ectasia of th e abdominal aorta. The abdominal aorta and iliac arteries are widely patent. No dissection is seen. T here is advanced atherosclerotic plaque and irregularity throughout the iliac vessels. There is mild aneurysmal dilatation of the right common iliac artery which measures up to 1.7 cm. There is mild ane urysmal dilatation of the left internal iliac artery which measures up to 1.2 cm. Major branches of the abdominal aorta: The celiac trunk and superior mesenteric artery are patent. Th ere is focal high-grade stenosis or complete occlusion of the proximal inferior mesenteric artery see n on image #225. The remainder of the vessel appears patent. Hepatic arterial anatomy is conventional . The splenic artery is patent. Single bilateral renal arteries are patent. There is at least mild st enosis of the origin of the right renal artery. Right lower extremity runoff: Advanced atherosclerotic plaque and irregularity seen throughout the ar teries of the right lower castro. The right common femoral artery is widely patent, as is the right pro rosanna femoris artery. There is complete thrombosis of the proximal right superficial femoral artery j ust below the bifurcation seen on axial image #390. This is reconstituted approximately 9 cm distally on axial image #453 in the proximal to midportion of the superficial femoral artery. There is thread y flow in the mid to distal portions of the superficial femoral artery with extensive multifocal sten osis. There is complete thrombosis of the distal superficial femoral artery seen on image #566 which reconstitutes approximately 2.5 cm distally on image #584. There is thready flow within the popliteal artery with near-complete to complete focal thrombosis seen on image #652. There is complete thrombo sis of the proximal anterior tibial artery seen on image #754. There is thready flow within the mid t o distal portions of the vessel. The dorsalis pedis artery appears patent. There is trace flow within the tibioperoneal trunk. The posterior tibial artery is occluded. The peroneal artery is patent to t he ankle. Left lower extremity runoff: Advanced atherosclerotic plaque and irregularity seen throughout the art eries of the left lower extremity. The common femoral artery is patent, as is the left profunda femor is artery. There is extensive atherosclerotic plaque of the superficial femoral artery which is diffu sely stenosed. There is near complete focal occlusion of the vessel proximally seen on image #467 and near-complete complete occlusion in the mid to distal portion seen on image #551. There is thready f low within the mid to distal superficial femoral artery and the popliteal artery with foci of near co mplete occlusion. A small aneurysm of the popliteal artery measures up to 1.1 cm as seen on image #66 8. There is thready flow throughout the anterior tibial and peroneal arteries which appear patent. Th e dorsalis pedis artery is patent. There is complete thrombosis throughout the majority of the director of user experience ior tibial artery. Bowel: There is mild diverticulosis of the imaged colon without CT evidence of acute diverticulitis. Imaged portions of the bowel show no evidence of obstruction. A normal appendix is seen in the right lower quadrant. Peritoneum: No evidence of intraperitoneal free air is seen. There is no abdominal ascites. Lymphadenopathy: There are pathologically enlarged iliac chain lymph nodes. A node on image #237 karla ures 1.7 x 1.6 cm. A right iliac chain node on image #259 measures 1.8 x 1.2 cm. A left external ravi c chain node on image #308 measures 1.5 x 1.2 cm. A right external iliac chain node on image #336 carrillo sures 1.7 x 1.5 cm. There are also mildly enlarged retroperitoneal nodes. A preaortic node on image # 174 measures 1.1 cm in short axis. An enlarged right groin node on image #393 measures 2.2 x 1.3 cm. Pelvic viscera: The prostate gland is enlarged and heterogeneous. The bladder wall is thickened/trabe culated indicating chronic outlet obstruction. Skeletal structures: The skeletal structures are osteopenic. There is mild to moderate lumbosacral sp ondylosis. No lytic or blastic lesions are seen. Lower extremity soft tissues: Soft tissue edema is noted in both feet, right greater than left. There is generalized atrophy of the lower extremity musculature. No soft tissue gas is identified in eithe r foot. IMPRESSION: 1. Cardiomegaly and severe emphysema. 2. There is mild aneurysmal dilatation of the partially visualized ascending thoracic aorta which carrillo sures up to 4.2 cm in diameter. 3. There is advanced atherosclerotic plaque throughout the abdominal aorta and iliac vessels which re main patent. 4. Severe peripheral vascular disease is present throughout both legs as detailed above. There are fo ci of complete long segment thrombosis throughout the right superficial femoral artery. 5. There is high-grade focal stenosis with near complete occlusion of the proximal inferior mesenteri c artery. 6. There is asymmetric cortical atrophy and hypoenhancement of the left kidney as compared to the rig ht with a percutaneous nephrostomy tube in place. There is left-sided perinephric stranding. No hydro nephrosis is seen. 7. The left ureter is dilated and contains hyperdense intraluminal material within the mid to distal portions. This may represent retained contrast. An underlying urothelial lesion is not excluded. 8. There are pathologically enlarged iliac chain lymph nodes seen bilaterally. These are nonspecific and may be reactive. Correlate clinically. 9. Hepatic steatosis. 10. There is asymmetric soft tissue edema in the right leg as compared to the left. 11. Additional findings as above. ACT 112: Negative or not required by law. Electronically signed by: Gui Mendoza M.D. 07/12/2023 11:28 AM
--- NOTE | 2023-07-12 15:03 | Hospitalist Progress Note ---
Date of Service July 12, 2023 Assessment & Plan (1) CAD (coronary artery disease): Plan: Michael is a 73-year-old male with a past medical history of nephrostomy tubes, troponin elevation with demand, A-fib, DM 2, bladder carcinoma, COPD, hypertension, CAD who presented for lower extremity swelling. He was found to have a elevated BNP with lower extremity edema and was given Lasix. Extremity edema, history of heart failure with reduced ejection fraction s/p CA BG, ICD implantation Without evidence of DVT on Dopplers No pulmonary edema or orthopnea. BNP is elevated at 446, but markedly improved compared to his prior of 1021 Patient feels he clinically improved following a dose of Lasix in the ER, however his troponin up trended. Has not had chest pain at any point. -Patient feels greatly improved following 1 dose of IV Lasix, will continue oral Lasix with stasis mobilization including wrapping/ADAIR hose, SCDs, and elevation for at least 20 minutes 3 times daily Last echo with EF 25-30%, severely reduced 10/2022. ICD is present. No chest pain or EKG changes suggestive of ACS, suspect troponin due to demand versus clearance Peripheral vascular disease could be causing right lower extremity swelling (2) Chronic respiratory failure with hypoxia: Plan: Chronic respiratory failure with COPD Baseline 3 L nasal cannula, no increased oxygen requirement admission Denies orthopnea or increased shortness of breath, no evidence of CHF exacerbation No wheezing to suggest COPD exacerbation Continue chronic treatments (3) Atrial fibrillation: Plan: Persistent atrial fibrillation EKG with A-fib rate 90s no territorial ST/T wave changes on admission Eliquis continued. Patient has some scant blood-tinged drainage into his nephrostomy tube however this has been gradually improved and no large-volume bleeding or clots. Patient does clarify that while this was temporarily held previously he is currently taking this and took his last dose this morning Adequately rate controlled (4) Bladder carcinoma: Plan: Bladder carcinoma S/p TURBT 11/2022 to areas positive for high-grade disease Repeat TURBT 04/2023 with high-grade disease Left ureteral orifice was not able to be located patient had hydro and NYLA, patient subsequently had a nephrostomy tube placed Patient is currently following for ongoing management, anticipating a repeat cystoscopy around August and will follow-up with urology for BCG/Keytruda/ge mcitabine/Doxil Taxol evaluation. Cholecystectomy was discussed but patient is a poor surgical candidate and was not recommended. Continue outpatient urologic follow-up Patient was under treatment with cefadroxil x 10-day course, this is continued and 11/09 (5) CLL (chronic lymphocytic leukemia): Plan: CLL Continueoutpatient monitoring WBC count up to 15 today. Not sure if this is due to CLL or infection (6) Wound of right foot: Plan: Wound care involved Patient is on ceftriaxone Slight leukocytosis (not sure if this is due to infection or CLL) Right ankle swelling and difficult to palpate pulses Arterial Doppler of the right lower extremity concerning for peripheral vascular disease Vascular surgery consulted CT angio showed severe peripheral vascular disease. Awaiting further recommendations from vascular Podiatry consulted Admission and Anticipated Discharge Date Admission Date: July 11, 2023 Subjective Patient does not have any major complaints. No pain anywhere. Leg edema overall improved but right leg is still more swollen than the left. Right foot wound present. No fever. Review of Systems Review of Systems: All systems reviewed & are unremarkable except as noted in Subjective Physical Exam Physical Exam: General: Awake, conversant Heart: S1, S2/regular rate and rhythm, no murmur rubs or gallops Lungs: Clear to auscultation bilaterally. Normal effort Abdomen: Soft/nontender/nondistended. No hepatosplenomegaly Extremities: No clubbing/cyanosis. Right ankle swelling. No swelling of the left ankle Behavior: Appropriate, cooperative Results & Data Results & Data Vital Signs (Past 12 Hours) Vital Signs Temp Pulse Pulse Resp BP Pulse Ox O2 Del Method 07/12/23 11:19 36.4 C L 99 H 18 121/58 L 94 Nasal Cannula 07/12/23 08:10 36.5 C 109 H 18 133/77 95 Nasal Cannula 07/12/23 07:38 Nasal Cannula 07/12/23 07:04 102 H 07/12/23 03:25 36.9 C 104 H 18 147/79 H 95 Nasal Cannula O2 Flow Rate 07/12/23 11:19 3 07/12/23 08:10 3 07/12/23 07:38 3 07/12/23 07:04 07/12/23 03:25 3 Laboratory Results Abnormal lab results 07/12/23 07/12/23 Range/Units 07:36 11:46 WBC 15.00 H (4.8-10.8) K/ul RBC 3.93 L (4.70-6.10) M/uL Hgb 12.9 L (14.0-18.0) g/dl Hct 39.2 L (42.0-52.0) % RDW Std Deviation 55.4 H (36.4-46.3) fL RDW Coeff of Sharmaine 15.0 H (11.5-14.5) % Neut # (Auto) 10.26 H (1.40-6.50) K/uL Lymph # (Auto) 3.51 H (1.20-3.40) K/uL [place] # (Auto) 1.10 H (0.11-0.59) K/uL BUN 32 H (6-23) mg/dl Creatinine 1.76 H (0.6-1.4) mg/dl Glucose 122 H (70-99(Fasting)) mg/dl POC Glucose 151 H (70-99) mg/dl PG Care Time/CCT Total # of Minutes Spent Total Time Spent with Patient: Total time spent is greater than 50% in coordination of care (as documented) at patient's floor/unit and/or counseling patient: Coding Level of Care Code 56878 SUB INP/OBS CARE 235MIN Diagnoses CAD (coronary artery disease) I25.10 Chronic respiratory failure with hypoxia J96.11 Atrial fibrillation I48.91 Bladder carcinoma C67.9 CLL (chronic lymphocytic leukemia) C91.10 Wound of right foot S91.301A
[2023-07-12] MEDS: traMADol HCL 50 MG TABLET PO STA (18:08)
[2023-07-12] MEDS: traMADol HCL 50 MG TABLET PO PRN (23:11)
[2023-07-13 07:27] LABS: Hematocrit (blood only) 38.4 % (42.0-52.0); Hemoglobin 12.5 g/dl (14.0-18.0); Mean Corpuscular Hgb Conc 32.6 g/dL (32.0-36.0); Mean Corpuscular Volume 101.3 fL (80.0-100.0); Mean Platelet Volume 11.1 fL (9.4-12.4); Platelet Count 272 K/uL (130-400); RDW Coefficient of Variation 15.2 % (11.5-14.5); RDW Standard Deviation 56.5 fL (36.4-46.3); Red Blood Count 3.79 M/uL (4.70-6.10)
[2023-07-13 07:37] LABS: BUN Creatinine Ratio 16.6 (10-20); Calcium 8.8 mg/dl (8.6-10.3); Est GFR (African American) 43.5 ml/min; Est GFR (Non-African American) 37.5 ml/min; Potassium 3.6 mmol/L (3.5-5.1)
[2023-07-13] MEDS: PSYLLIUM or GUAR GUM FIBER 4GM PACKET PO SCH (08:08)
--- NOTE | 2023-07-13 09:35 | Consultation ---
Date of Consultation July 13, 2023 Assessment & Plan (1) Peripheral arterial disease: Pt with severe PAD and RLE toe wounds which have been present for about 2 weeks. These appear to be infected, and appear improved since photos taken 2 days ago. Pt is without rest pain. Pt discussed at length with Dr Worrell, who reviewed the pt's imaging. The only option for revascularization in this pt would be open surgical bypass, for which he would be a high risk/poor surgical candidate d/t multiple comorbidities, including his reduced EF and bladder ca and CLL. Recommend local wound care and podiatry eval. If his wound infection were to progress or pt develops rest pain, would recommend AKA. Please call if needed. History of Present Illness Reason for Consultation: PAD Attending Physician: Jeff Couch MD History of Present Illness 73 yo m with multiple medical problems, including ischemic cardiomyopathy, AICD placement, DMII, CAD, a fib, CLL, hyperlipidemia, HTN, COPD, bladder ca, admitted with R foot wound infection, seen in consultation today for PAD. Pt EF 20-25%. Pt states he noted wounds to his R toes/foot about 1-2 weeks ago. Thinks his slippers were rubbing it. Does not know of any other injury. States they became more painful and red, so came to [facility] ED for eval. Pt admits chronic numbness/tingling/occasional pain in BL feet. Admits some castro pain with ambulation. Denies MACIAS, fever, chest pain, SOB, abd pain, N/V, rest pain, claudication, other complaints. Ambulates slowly. Arterial US demonstrates significant arterial disease, with AYANA of 0.19 CTA demonstrates multiple areas of occlusion throughout RLE. Allergies Allergy/AdvReac Type Severity Reaction Status Date / Time enalapril Allergy Severe Angioedema Verified 07/09/23 18:50 brimonidine [From Combigan] Allergy Intermediate Hives Verified 07/09/23 18:50 timolol Allergy Intermediate Hives Verified 07/09/23 18:50 Home Medications Medication Instructions Recorded Confirmed Type aspirin 81 mg tablet,delayed 81 mg PO QAM 11/01/22 07/09/23 History release atorvastatin 40 mg tablet 40 mg PO PM 11/01/22 07/09/23 History budesonide 160 mcg-glycopyr 9 2 inh inhalation BID 11/01/22 07/09/23 History mcg-formot 4.8 mcg/actuation HFA inhaler (Breztri Aerosphere) calcium carbonate 600 mg PO QAM 11/01/22 07/09/23 History carvedilol 3.125 mg tablet 3.125 mg PO BID 11/01/22 07/09/23 History cyanocobalamin (vitamin B-12) 1,000 mcg PO QAM 11/01/22 07/09/23 History 1,000 mcg tablet empagliflozin 10 mg tablet 10 mg PO QAM 11/01/22 07/09/23 History (Jardiance) ferrous sulfate 27 mg iron tablet 27 mg PO QAM 11/01/22 07/09/23 History furosemide 40 mg tablet (Lasix) 40 mg PO BID 11/01/22 07/09/23 History hydralazine 25 mg tablet 25 mg PO TID 11/01/22 07/09/23 History nitroglycerin 0.4 mg sublingual 0.4 mg sublingual UD PRN Chest Pain 11/01/22 07/09/23 History tablet potassium chloride 20 mEq 20 meq PO QAM 11/01/22 07/09/23 History tablet,extended release psyllium husk 3.4 gram/5.4 gram 1 tbsp PO QAM 11/01/22 07/09/23 History oral powder (Metamucil) dimenhydrinate 50 mg tablet 50 mg PO Q8H PRN Nausea 12/14/22 07/09/23 History (Dramamine) apixaban 5 mg tablet (Eliquis) 5 mg PO BID 05/03/23 07/09/23 History acetaminophen 500 mg tablet 1,000 mg PO Q6H PRN Pain 05/09/23 07/09/23 History cefadroxil 500 mg capsule 500 mg PO BID 07/09/23 07/09/23 History multivitamin 1 tab PO QAM 07/09/23 07/09/23 History Patient History Medical History Chronic respiratory failure with hypoxia CAD (coronary artery disease) CABG x 2 07/2016 Angioplasty 1996 Atrial fibrillation On Eliquis s/p ablation 2017 CKD (chronic kidney disease) Valvular heart disease History of cellulitis Right Great toe- completed antibiotics Swelling and erythema significantly improved but still has mild pain (improved from previous) ICD (implantable cardioverter-defibrillator) in place 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 Ortega Dyslipidemia HTN (hypertension) Ischemic cardiomyopathy ICD 09/2021 History of gout CLL (chronic lymphocytic leukemia) known hx x years Diabetes mellitus, type 2 NIDDM Hard of hearing No hearing aids Myocardial Infarction 1996 & 2016 Chronic obstructive pulmonary disease 3L via continuous Bladder carcinoma bcg treatments Surgical History History of bladder surgery TURBT History of anesthesia reaction slow to wake History of bone marrow biopsy Right node Lymph node biopsy (04/23/23)- CLL/SLL, negative for metastatic carcinoma History of colonoscopy H/O wisdom tooth extraction History of tonsillectomy History of adenoidectomy History of cataract surgery bilateral S/P ICD (internal cardiac defibrillator) procedure Implanted 2021>last checked February 2022 ? type S/P ablation of atrial fibrillation S/P angioplasty no stents S/P CABG x 2 2016 Family History Other No family history of adverse response to anesthesia Social History Smoking Status: Former smoker Tobacco Type: Cigarettes Second Hand Exposure: No; Do You Dip or Chew Tobacco: No; Hx Alcohol Use: No Hx Substance Use: No Preferred Language: Lithuanian Communication Ability: Effective Pool Finisher Required: No Beliefs That Will Affect Care: None Current Living Situation: Spouse Feels Safe at Home: Yes Assistive Devices: Oxygen - Continuous and Walker Assistive Devices Comment: rollator walker Review of Systems Review of Systems: All systems reviewed & are unremarkable except as noted in HPI & below Physical Exam Constitutional: WD/WN, vitals as above cooperative and comfortable; not in distress ENMT: Ears: no hearing impairment Neck: trachea midline Respiratory: normal respiratory effort, lungs clear to auscultation Auscultation: + diminished lung sounds Cardiovascular: Rate/Rhythm: + irregularly irregular Vessels: femoral pulses present (RLE +3, LLE +2), posterior tibial pulses present (RLE no doppler, LLE + monophasic doppler) and dorsalis pedis pulses present (RLE no doppler, LLE monophasic doppler); + abnormal peripheral pulses Extremities: + edema (BLE); + abnormal capillary refill (LLE normal. RLE caprefill to 1st and 5th toes. ) Gastrointestinal (Abdomen): Inspection/Auscultation: abdomen normal to inspection and normal bowel sounds Percussion/Palpation: abdomen soft; abdomen nontender Musculoskeletal: Extremities: strength 5/5 throughout Skin: + ulcer (RLE great toetip, 3rd plantar/l ateral, 4th plantar/medial with odor,5th lat) Neurologic: moves all extremities and awake; no focal motor deficits and not confused Psychiatric: A+Ox3, euthymic affect Results & Data Vital Signs (Past 12 Hours) Vital Signs Temp Pulse Pulse Resp BP Pulse Ox O2 Del Method 07/13/23 08:17 Nasal Cannula 07/13/23 08:03 36.5 C 66 18 134/97 96 Room Air 07/13/23 04:01 36.6 C 98 H 16 133/72 94 Nasal Cannula 07/12/23 23:55 97 H 07/12/23 23:22 36.5 C 99 H 16 128/74 95 Nasal Cannula O2 Flow Rate 07/13/23 08:17 3 07/13/23 08:03 07/13/23 04:01 3 07/12/23 23:55 07/12/23 23:22 3
--- NOTE | 2023-07-13 17:24 | Discharge Summary ---
Date of Service July 13, 2023 Admission HPI Per Admitting Provider Michael is a 73yo M who presents for worsened CHARO edema which is becoming uncomfortabale due to weeping and tense edema. No orthopnea. No cellulitis. No fever/chills. Wroseneing ankle swelling Chronic shortness of breath, no change no chest pressure or chest pain no orthopnea NO recent increased salt intake No DVT Has LEFT nephrostomy tube. Functioning well, little blood but decreasing over time. No surrounding erythema, tenderness or warmth Feels much better since getting lasix. Swelling cuases some weeping which is painful to him. NO signs of cellulitis Has not been able to elevate legs or wrap legs. Does try to ambulate regularly with diabetic socks. Medical History: Reviewed Medications: Reviewed Surgical History: Reviewed Family history: Reviewed Allergies: Reviewed Social History: Reviewed Code Status:FUll COde Admission Exam Per Admitting Provider General: A&Ox3. NAD. Cooperative. HEENT: Atraumatic, normocephalic. Pulm: CTAB A&P. -wheezes, -rales, -rhonchi. Symmetrical chest rise. No increased work of breathing. No respiratory distress. Cardiac: irir. Radial pulses intact and symmetrical. Trace JVD Abdominal: Nontender, nondistended, soft. BS present. L flank with nephrostomy tube intact C/D/I no signs of surroudnign infection Ext: bilate CHARO pitting edema Principal Diagnosis Lower extremity edema Severe peripheral vascular disease Right foot wound with possible superficial infection Leukocytosis most likely related to CLL Chronic respiratory failure with COPD, requiring 3 L of oxygen at baseline Bladder carcinoma, with ongoing treatment Discharge Exam General: Awake, conversant Heart: S1, S2/regular rate and rhythm, no murmur rubs or gallops Lungs: Clear to auscultation bilaterally. Normal effort Abdomen: Soft/nontender/nondistended. No hepatosplenomegaly Extremities: No clubbing/cyanosis. Right ankle swelling. No swelling of the left ankle. Dressing on right foot Behavior: Appropriate, cooperative Discharge Data Allergies Allergy/AdvReac Type Severity Reaction Status Date / Time enalapril Allergy Severe Angioedema Verified 07/09/23 18:50 brimonidine [From Combigan] Allergy Intermediate Hives Verified 07/09/23 18:50 timolol Allergy Intermediate Hives Verified 07/09/23 18:50 Consultations 07/09/23 18:59 ED Decision to Admit Stat 07/12/23 07:30 Consult Podiatry Routine Consult Vascular Surgery Routine Ordered Studies 07/09/23 14:08 US venous doppler LE BI Stat 07/11/23 14:34 US arterial duplex LE RT Stat 07/12/23 07:57 CTA abd aorta runof w con [CT ang AA runof w inc wo ifdon] Routine Hospital Course (1) CAD (coronary artery disease): Michael is a 73-year-old male with a past medical history of nephrostomy tubes, troponin elevation with demand, A-fib, DM 2, bladder carcinoma, COPD, hyp ertension, CAD who presented for lower extremity swelling. He was found to have a elevated BNP with lower extremity edema and was given Lasix. Extremity edema, history of heart failure with reduced ejection fraction s/p CABG, ICD implantation Without evidence of DVT on Dopplers No pulmonary edema or orthopnea. BNP is elevated at 446, but markedly improved compared to his prior of 1021 Patient feels he clinically improved following a dose of Lasix in the ER, however his troponin up trended. Has not had chest pain at any point. -Patient feels greatly improved following 1 dose of IV Lasix, will continue oral Lasix with stasis mobilization including wrapping/ADAIR hose, SCDs, and elevation for at least 20 minutes 3 times daily Last echo with EF 25-30%, severely reduced 10/2022. ICD is present. No chest pain or EKG changes suggestive of ACS, suspect troponin due to demand versus clearance Peripheral vascular disease could be causing right lower extremity swelling (2) Chronic respiratory failure with hypoxia: Chronic respiratory failure with COPD Baseline 3 L nasal cannula, no increased oxygen requirement admission Denies orthopnea or increased shortness of breath, no evidence of CHF exacerbation No wheezing to suggest COPD exacerbation Continue chronic treatments (3) Atrial fibrillation: Persistent atrial fibrillation EKG with A-fib rate 90s no territorial ST/T wave changes on admission Eliquis continued. Patient has some scant blood-tinged drainage into his nephrostomy tube however this has been gradually improved and no large-volume bleeding or clots. Patient does clarify that while this was temporarily held previously he is currently taking this and took his last dose this morning Adequately rate controlled (4) Bladder carcinoma: Bladder carcinoma S/p TURBT 11/2022 to areas positive for high-grade disease Repeat TURBT 04/2023 with high-grade disease Left ureteral orifice was not able to be located patient had hydro and NYLA, patient subsequently had a nephrostomy tube placed Patient is currently following for ongoing management, anticipating a repeat cystoscopy around August and will follow-up with urology for BCG/Keytruda/gemcitabine/Doxil Taxol evaluation. Cholecystectomy was discussed but patient is a poor surgical candidate and was not recommended. Continue outpatient urologic follow-up Patient was under treatment with cefadroxil x 10-day course, this will be continued to treat any superficial skin and soft tissue of the right foot wound (5) CLL (chronic lymphocytic leukemia): CLL Continueoutpatient monitoring WBC is at 14 today. Not sure if this is due to CLL or infection (6) Wound of right foot: Wound care involved Patient is on ceftriaxone, discharged on cefadroxil Slight leukocytosis (not sure if this is due to infection or CLL) Right ankle swelling and difficult to palpate pulses Arterial Doppler of the right lower extremity concerning for peripheral vascular disease Vascular surgery consulted. Reviewed the recommendations. No surgery at this time. Not a candidate for bypass. In future if this causes rest pain, discharge may need amputation CT angio showed severe peripheral vascular disease. Podiatry consulted. Communicated with infrastructure engineer who reviewed his chart, nursing wound images, vascular testing. He did not recommend any surgeries while in the hospital. He will see the patient outpatient in 1 week. His office will call him. He patient discharge. Total Time Total Time Spent Total Time Spent (In Minutes): 35 Discharge Plan Discharge Items Patient Disposition: Home - Self-Care Reason For Visit: FLUID OVERLOAD, CHARO VS CHF Discharge Diagnosis: Lower extremity edema Severe peripheral vascular disease Right foot wound with possible superficial infection Leukocytosis most likely related to CLL Chronic respiratory failure with COPD, requiring 3 L of oxygen at baseline Bladder carcinoma, with ongoing treatment Activity: Resume your previous activity Non-emergency contact: Primary Care Provider Call non-emergency contact if: you have any medication questions and your symptoms worsen Follow-up/Referrals: Corey Toth [Primary Care Provider] - 07/17/23 11:30 am Diet: Carb Consistent or DM2 and Heart Healthy Addtl Attending Provider Instructions: Advised to follow-up with PCP in 1 week Advised to follow-up with vascular surgery in 1 month Advised to follow-up with podiatry in 1 week. Their office will call with an appointment. Pending Studies at Discharge: No Stand-Alone Forms: My [facility] Medications and DC Order Prescriptions: Continued dimenhydrinate [Dramamine] 50 mg Tablet 50 mg PO Q8H PRN (Reason: Nausea) furosemide [Lasix] 40 mg Tablet 40 mg PO BID atorvastatin 40 mg Tablet 40 mg PO PM cyanocobalamin (vitamin B-12) 1,000 mcg Tablet 1,000 mcg PO QAM hydralazine 25 mg Tablet 25 mg PO TID aspirin 81 mg Tablet,Delayed Release (Dr/Ec) 81 mg PO QAM carvedilol 3.125 mg Tablet 3.125 mg PO BID Rx Instructions: must administer with a meal/food calcium carbonate 600 mg calcium (1,500 mg) Tablet 600 mg PO QAM nitroglycerin 0.4 mg Tablet, Sublingual 0.4 mg sublingual UD PRN (Reason: Chest Pain) ferrous sulfate 27 mg iron Tablet 27 mg PO QAM potassium chloride 20 mEq Tablet Extended Release 20 meq PO QAM Jardiance 10 mg Tablet 10 mg PO QAM Metamucil 3.4 gram/5.4 gram Powder 1 tbsp PO QAM Rx Instructions: mix into at least 8 oz of water or juice before administering Breztri Aerosphere 160-9-4.8 mcg/actuation Hfa Aerosol Inhaler 2 inh INHALATION BID Eliquis 5 mg Tablet 5 mg PO BID acetaminophen 500 mg Tablet 1,000 mg PO Q6H PRN (Reason: Pain) multivitamin Tablet 1 tab PO QAM cefadroxil 500 mg Capsule 500 mg PO BID Rx Instructions: STARTED 07/02/23 FOR 10 DAYS. Discharge Orders: Discharge Order (Routine); Ordered 07/13/23 Ordered By: Jeff Couch Admission Data Admit Date/Time: 07/11/23 13:54 Attending Provider: Jeff Couch Admit Provider: Monico Pearson Primary Care Provider: Corey Toth Other Providers: Monico Pearson; Madan Thomason; Saurav Worrell Other Interventions: Discharge Summary Assessment (RN) Last Done: 07/13/23 14:17 Coding Level of Care Code 40322 INP/OBS DISCH >30 MIN Diagnoses CAD (coronary artery disease) I25.10 Chronic respiratory failure with hypoxia J96.11 Atrial fibrillation I48.91 Bladder carcinoma C67.9 CLL (chronic lymphocytic leukemia) C91.10 Wound of right foot S91.301A
== END 2023-07-13 16:56 | disposition home or self-care (01) ==
LOC: EDINP 13:54 → ED 13:54 → SUATTDRO 19:37 → 2N 21:02

== ENCOUNTER 2023-07-17 14:24 | Inpatient (IN) ==
[2023-07-17 15:11] LABS: Basophils # (auto) 0.05 K/uL (0.00-0.20); Basophils % (auto) 0.4 %; Eosinophils # (auto) 0.11 K/uL (0.00-0.50); Eosinophils % (auto) 0.9 %; Hematocrit (blood only) 38.2 % (42.0-52.0); Hemoglobin 12.3 g/dl (14.0-18.0); Immature Granulocytes # (auto) 0.06 K/uL (0.01-0.20); Immature Granulocytes % (auto) 0.5 %; Lymphocytes # (auto) 4.37 K/uL (1.20-3.40); Lymphocytes % (auto) 34.5 %; Mean Corpuscular Hemoglobin 32.8 pg (25.0-34.0); Mean Corpuscular Hgb Conc 32.2 g/dL (32.0-36.0); Mean Corpuscular Volume 101.9 fL (80.0-100.0); Mean Platelet Volume 10.9 fL (9.4-12.4); Monocytes # (auto) 0.82 K/uL (0.11-0.59); Monocytes % (auto) 6.5 %; Neutrophils # (auto) 7.27 K/uL (1.40-6.50); Neutrophils % (auto) 57.2 %; Platelet Count 374 K/uL (130-400); RDW Coefficient of Variation 14.8 % (11.5-14.5); RDW Standard Deviation 55.1 fL (36.4-46.3); Red Blood Count 3.75 M/uL (4.70-6.10); White Blood Count 12.68 K/ul (4.8-10.8)
[2023-07-17 15:25] LABS: Alanine Aminotransferase 78 U/L (7-52); Albumin Globulin Ratio 1.1 (0.9-2); Albumin Level 3.9 gm/dl (3.4-5.0); Alkaline Phosphatase 85 U/L (34-104); Anion Gap 7 (3-11); Aspartate Aminotransferase 39 U/L (13-39); BUN Creatinine Ratio 18.6 (10-20); Bilirubin,Total 0.6 mg/dl (0.2-1.0); Blood Urea Nitrogen 29 mg/dl (6-23); Carbon Dioxide 31 mmol/L (21-32); Chloride 104 mmol/L (98-107); Est GFR (Non-African American) 43.1 ml/min; Globulin 3.5 gm/dl (2.5-4.0); Glucose 97 mg/dl (70-99(Fasting)); Potassium 3.9 mmol/L (3.5-5.1); Sodium 142 mmol/L (136-145); Total Protein 7.4 gm/dl (6.0-8.3)
[2023-07-17 15:30] LABS: Troponin I High Sensitivity 31.6 pg/ml (0-20)
[2023-07-17 15:44] LABS: INR 1.1 (0.9-1.1); Partial Thromboplastin Time 28 Seconds (21-31); Prothrombin Time 11.9 Seconds (9.0-12.0)
--- NOTE | 2023-07-17 15:48 | XRay Report ---
XR chest 1V not portable HISTORY: 73 years-old Male Chest pain, nonspecific COMPARISON: 07/09/2023 TECHNIQUE: PA view of the chest FINDINGS: Cardiac silhouette is enlarged. Left subclavian pacer/AICD. Median sternotomy. Chronic interstitial c oarsening without pneumothorax, pleural effusion or airspace consolidation. Bones appear grossly inta ct. IMPRESSION: Cardiomegaly without acute process. ACT 112: Negative or not required by law. The above report was generated using voice recognition software. It may contain grammatical, syntax o r spelling errors. Electronically signed by: John Gunderson M.D. 07/17/2023 3:47 PM
--- NOTE | 2023-07-17 18:09 | Emergency Department Note ---
Impression & Plan Diabetic foot ulcer ADMIT ED Provider Note HPI: History obtained from patient The patient is a 73-year-old gentleman with complex past medical history including peripheral artery disease, atrial fibrillation currently on Eliquis, CLL, bladder carcinoma, presents the emergency department with pain and swelling in his right foot. Patient is noted to have toe ulcerations to the first, third, and fourth digits of his right foot as well as more superficial ulceration to the lateral aspect of the fifth digit. Patient states that he has been on antibiotics for this issue (cefadroxil) however he has had increased swelling and erythema to the dorsal aspect of his right foot and has noticed his ulcerations seem to be larger just over the past several days. On arrival here to the ED the patient is hypertensive at 159/86, heart rate is 97, patient is stable on 3 L nasal cannula oxygen on arrival. ROS: - Per HPI Differential Diagnosis: Right foot cellulitis, infected diabetic foot wound, necrotizing soft tissue infection, sepsis, amongst other potential pathologies. *Outpatient medications and allergy history reviewed. PE: General: Alert HEENT: Normocephalic, trachea midline Eyes: Extraocular eye movement is intact, no scleral erythema Pulmonary: Clear to auscultation bilaterally, no wheezing Cardio: Regular rate and rhythm GI: Abdomen is soft to palpation : No suprapubic tenderness MSK: Moderate edema of the right lower extremity and the dorsal aspect of the right foot with overlying erythema, necrotic appearing ulceration to the first, third, and fourth toe with mild surrounding purulence, there is no crepitus to palpation of the soft tissues in the dorsal aspect of the foot, erythema is blanchable, there is a palpable dorsalis pedis pulse in the right lower extremity Skin: Right foot findings as above, otherwise no evidence of rash Neuro: Alert, no focal deficits Psychiatric: Cooperative INDEPENDENT INTERPRETATIONS: case monitor: (As interpreted by myself): - An order was placed for continuous cardiac monitoring - Patient was noted to be in atrial fibrillation with a rate of EKG: (As interpreted by myself): Rate: 95 Rhythm: Atrial fibrillation Intervals: Within normal limits ST changes: No ST elevation Time: 1453 Chest x-ray: (As interpreted by myself): Pacemaker in place without acute infiltrate or acute disease noted Interventions provided in ED: -IV vancomycin, IV Zosyn Medical Decision Making: IV was established and lab work obtained, patient was placed on quality assurance monitor final. Lab work shows a leukocytosis of 12.68 that appears chronic, hemoglobin is stable at 12.3, platelet count is normal, CMP does not show any critical findings, creatinine appears near baseline at 1.56, troponin also appears near baseline at 31.2. X-ray imaging of the right foot does not show any evidence of obvious osteomyelitis or subcutaneous gas formation per my interpretation with official read by radiology pending in the morning. Patient's exam is concerning for worsening cellulitis of the dorsal aspect of the right foot, he has been on antibiotics without improvement over the past several days. I do of concern that he may require podiatry evaluation for possible surgical intervention in regards to the ulcerations on his toes. Patient was given IV vancomycin and IV Zosyn here in the ED and blood cultures were drawn. Podiatry was consulted (as they also were during his previous admission). Consultation was placed for Dr. Thomason. Case was then discussed with the on-call hospitalist for [facility], Dr. Polk, and the patient was placed for admission in stable condition. Patient was in agreement to this plan he was placed for admission in stable condition. Consultants/Discussions held with other healthcare providers: -Hospitalist, Dr. Polk Disposition discussion held by myself with: -Patient Diagnosis: 1. Infected diabetic foot ulcer, acute, right foot 2. Right foot cellulitis, acute 3. Leukocytosis, chronic 4. 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 Ortega Dyslipidemia HTN (hypertension) Ischemic cardiomyopathy ICD 09/2021 History of gout CLL (chronic lymphocytic leukemia) known hx x years Diabetes mellitus, type 2 NIDDM Hard of hearing No hearing aids Myocardial Infarction 1996 & 2017 Chronic obstructive pulmonary disease 3L via continuous Bladder carcinoma bcg treatments Surgical History History of bladder surgery TURBT History of anesthesia reaction slow to wake History of bone marrow biopsy Right node Lymph node biopsy (04/23/23)- CLL/SLL, negative for metastatic carcinoma History of colonoscopy H/O wisdom tooth extraction History of tonsillectomy History of adenoidectomy History of cataract surgery bilateral S/P ICD (internal cardiac defibrillator) procedure Implanted 2021>last checked February 2022 ? 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 Required: No Beliefs That Will Affect Care: None Current Living Situation: Spouse Feels Safe at Home: Yes Assistive Devices: Oxygen - Continuous and Walker Allergies Allergies Allergy/AdvReac Type Severity Reaction Status Date / Time enalapril Allergy Severe Angioedema Verified 07/17/23 20:41 brimonidine [From Combigan] Allergy Intermediate Hives Verified 07/17/23 20:41 timolol Allergy Intermediate Hives Verified 07/17/23 20:41 Home Meds Home Medications Medication Instructions Recorded Confirmed aspirin 81 mg tablet,delayed 81 mg PO QAM 11/01/22 07/17/23 release atorvastatin 40 mg tablet 40 mg PO PM 11/01/22 07/17/23 budesonide 160 mcg-glycopyr 9 2 inh inhalation BID 11/01/22 07/17/23 mcg-formot 4.8 mcg/actuation HFA inhaler (Breztri Aerosphere) calcium carbonate 600 mg PO QAM 11/01/22 07/17/23 carvedilol 3.125 mg tablet 3.125 mg PO BID 11/01/22 07/17/23 cyanocobalamin (vitamin B-12) 1,000 mcg PO QAM 11/01/22 07/17/23 1,000 mcg tablet empagliflozin 10 mg tablet 10 mg PO QAM 11/01/22 07/17/23 (Jardiance) ferrous sulfate 27 mg iron tablet 27 mg PO QAM 11/01/22 07/17/23 furosemide 40 mg tablet (Lasix) 40 mg PO BID 11/01/22 07/17/23 hydralazine 25 mg tablet 25 mg PO TID 11/01/22 07/17/23 nitroglycerin 0.4 mg sublingual 0.4 mg sublingual UD PRN Chest Pain 11/01/22 07/17/23 tablet potassium chloride 20 mEq 20 meq PO QAM 11/01/22 07/17/23 tablet,extended release psyllium husk 3.4 gram/5.4 gram 1 tbsp PO QAM 11/01/22 07/17/23 oral powder (Metamucil) dimenhydrinate 50 mg tablet 50 mg PO Q8H PRN Nausea 12/14/22 07/17/23 (Dramamine) apixaban 5 mg tablet (Eliquis) 5 mg PO BID 05/03/23 07/17/23 acetaminophen 500 mg tablet 1,000 mg PO Q6H PRN Pain 05/09/23 07/17/23 multivitamin 1 tab PO QAM 07/09/23 07/17/23 Results & Data (ED) Vital Signs Vital Signs - 24 hr 07/17/23 14:19 07/17/23 14:27 07/17/23 16:40 Temperature 36.6 C 36.6 C Temperature Source Temporal Artery Scan Temporal Artery Scan Pulse Rate 98 H Pulse Rate [Apical] 105 H Pulse Rate from SpO2 Sensor Pulse Rhythm [Apical] Respiratory Rate 18 18 26 H Respiratory Effort / Characteristics Non-Labored Spontaneous Respiratory Depth Normal Respiratory Pattern Blood Pressure 153/76 H Blood Pressure [Left Arm] 150/74 H Blood Pressure Mean 101 Blood Pressure Mean [Left Arm] 99 Pulse Oximetry 95 95 98 Oxygen Delivery Method Nasal Cannula Nasal Cannula Oxygen Flow Rate 3 3 Sepsis Recent Fever Within 48 Hours No Sepsis New/Unexplained Change in Mental Status N/A Sepsis Action Taken by Nursing No Action Required 07/17/23 17:54 07/17/23 17:56 07/17/23 18:00 Temperature Temperature Source Pulse Rate 94 H Pulse Rate [Apical] 97 H Pulse Rate from SpO2 Sensor Pulse Rhythm [Apical] Regular Respiratory Rate 18 Respiratory Effort / Characteristics Non-Labored Spontaneous Respiratory Depth Normal Respiratory Pattern Regular Blood Pressure Blood Pressure [Left Arm] 159/86 H Blood Pressure Mean Blood Pressure Mean [Left Arm] 110 Pulse Oximetry 96 95 Oxygen Delivery Method Room Air Nasal Cannula Oxygen Flow Rate 3 Sepsis Recent Fever Within 48 Hours Sepsis New/Unexplained Change in Mental Status Sepsis Action Taken by Nursing 07/17/23 19:05 07/17/23 19:30 07/17/23 20:00 Temperature Temperature Source Pulse Rate 92 H 86 86 Pulse Rate [Apical] Pulse Rate from SpO2 Sensor 90 81 87 Pulse Rhythm [Apical] Respiratory Rate 20 18 22 Respiratory Effort / Characteristics Respiratory Depth Respiratory Pattern Blood Pressure 128/93 130/101 H 149/84 H Blood Pressure [Left Arm] Blood Pressure Mean 104 110 105 Blood Pressure Mean [Left Arm] Pulse Oximetry 96 97 96 Oxygen Delivery Method Nasal Cannula Oxygen Flow Rate 3 Sepsis Recent Fever Within 48 Hours Sepsis New/Unexplained Change in Mental Status Sepsis Action Taken by Nursing 07/17/23 20:30 07/17/23 21:00 07/17/23 21:30 Temperature Temperature Source Pulse Rate 83 85 75 Pulse Rate [Apical] Pulse Rate from SpO2 Sensor 80 86 83 Pulse Rhythm [Apical] Respiratory Rate 19 21 32 H Respiratory Effort / Characteristics Respiratory Depth Respiratory Pattern Blood Pressure 139/82 117/90 137/91 Blood Pressure [Left Arm] Blood Pressure Mean 101 99 106 Blood Pressure Mean [Left Arm] Pulse Oximetry 97 97 96 Oxygen Delivery Method Oxygen Flow Rate Sepsis Recent Fever Within 48 Hours Sepsis New/Unexplained Change in Mental Status Sepsis Action Taken by Nursing 07/17/23 21:40 07/17/23 22:00 Temperature Temperature Source Pulse Rate 81 81 Pulse Rate [Apical] Pulse Rate from SpO2 Sensor 81 Pulse Rhythm [Apical] Respiratory Rate 23 Respiratory Effort / Characteristics Respiratory Depth Respiratory Pattern Blood Pressure 144/99 H Blood Pressure [Left Arm] Blood Pressure Mean 114 Blood Pressure Mean [Left Arm] Pulse Oximetry 94 Oxygen Delivery Method Oxygen Flow Rate Sepsis Recent Fever Within 48 Hours Sepsis New/Unexplained Change in Mental Status Sepsis Action Taken by Nursing Laboratory Data 07/17/23 14:55 07/17/23 14:55 Lab Results 07/17/23 07/17/23 Range/Units 14:55 16:39 WBC 12.68 H (4.8-10.8) K/ul RBC 3.75 L (4.70-6.10) M/uL Hgb 12.3 L (14.0-18.0) g/dl Hct 38.2 L (42.0-52.0) % MCV 101.9 H (80.0-100.0) fL MCH 32.8 (25.0-34.0) pg MCHC 32.2 (32.0-36.0) g/dL RDW Std Deviation 55.1 H (36.4-46.3) fL RDW Coeff of Sharmaine 14.8 H (11.5-14.5) % Plt Count 374 (130-400) K/uL MPV 10.9 (9.4-12.4) fL Immature Gran % (Auto) 0.5 % Neut % (Auto) 57.2 % Lymph % (Auto) 34.5 % Routt % (Auto) 6.5 % Eos % (Auto) 0.9 % Baso % (Auto) 0.4 % Neut # (Auto) 7.27 H (1.40-6.50) K/uL Lymph # (Auto) 4.37 H (1.20-3.40) K/uL Routt # (Auto) 0.82 H (0.11-0.59) K/uL Eos # (Auto) 0.11 (0.00-0.50) K/uL Baso # (Auto) 0.05 (0.00-0.20) K/uL Immature Gran # (Auto) 0.06 (0.01-0.20) K/uL ESR 67 H (0-20) mm/hr PT 11.9 (9.0-12.0) Seconds INR 1.1 (0.9-1.1) APTT 28 (21-31) Seconds PTT Ratio 1.0 Sodium 142 (136-145) mmol/L Potassium 3.9 (3.5-5.1) mmol/L Chloride 104 (98-107) mmol/L Carbon Dioxide 31 (21-32) mmol/L Anion Gap 7 (3-11) BUN 29 H (6-23) mg/dl Creatinine 1.56 H (0.6-1.4) mg/dl Est Cr Clr Drug Dosing Not Reportable Est GFR ( Amer) 50.0 ml/min Est GFR (Non-Af Amer) 43.1 ml/min BUN/Creatinine Ratio 18.6 (10-20) Glucose 97 (70-99(Fasting)) mg/dl Calcium 10.0 (8.6-10.3) mg/dl Total Bilirubin 0.6 (0.2-1.0) mg/dl AST 39 (13-39) U/L ALT 78 H (7-52) U/L Alkaline Phosphatase 85 (34-104) U/L Troponin I High Sens 31.6 H 31.2 H (0-20) pg/ml Total Protein 7.4 (6.0-8.3) gm/dl Albumin 3.9 (3.4-5.0) gm/dl Globulin 3.5 (2.5-4.0) gm/dl Albumin/Globulin Ratio 1.1 (0.9-2) Administered Medications Discontinued Medications Vancomycin HCl 1,500 mg/ (Sodium Chloride) 530 mls @ 200 mls/hr IV NOW ONE Stop: 07/17/23 21:51 Last Infusion: 07/17/23 22:58 Dose: Infused Documented By: Admin: 07/17/23 20:10 Dose: 200 mls/hr Documented By: ITZEL Piperacillin Sod/Tazobactam Sod (Zosyn) 4.5 gm in 100 mls @ 200 mls/hr IV NOW ONE Stop: 07/17/23 19:42 Last Infusion: 07/17/23 20:09 Dose: Infused Documented By: Admin: 07/17/23 19:38 Dose: 200 mls/hr Documented By: ITZEL Imaging Data Radiologist's Impression: Chest X-Ray 07/17/23 14:33 XR chest 1V not portable HISTORY: 73 years-old Male Chest pain, nonspecific COMPARISON: 07/09/2023 TECHNIQUE: PA view of the chest FINDINGS: Cardiac silhouette is enlarged. Left subclavian pacer/AICD. Median sternotomy. Chronic interstitial coarsening without pneumothorax, pleural effusion or airspace consolidation. Bones appear grossly intact. IMPRESSION: Cardiomegaly without acute process. ACT 112: Negative or not required by law. The above report was generated using voice recognition software. It may contain grammatical, syntax or spelling errors. Electronically signed by: John Gunderson M.D. 07/17/2023 3:47 PM Discharge Plan Visit Data Chief Complaint: Edema To Extremity Stated Complaint: Edema BLE, pain/sores rt ft ED Provider: Hugo Aldana Discharge Problem: Diabetic foot ulcer Patient Disposition: Admitted As Inpatient Discharge Instructions Interventions: ED Discharge Assessment Last Done: 07/17/23 23:03 Discharge Problem: Diabetic foot ulcer Qualifiers: Diabetic foot ulcer location: toe Laterality: right Non-pressure ulcer stage: w ith other severity
[2023-07-17] MEDS ORDERED: VANCOMYCIN CONSULT ACTIVE PRN ×3 (19:13→23:53)
[2023-07-17] MEDS: PIPERACILLIN/TAZOBACTAM 4.5 GM/100 ML BAG IV ONE (19:38)
[2023-07-17] MEDS: VANCOMYCIN HCL 1,500 MG in SODIUM CHLORIDE 0.9% 500 ML IV ONE (20:10)
--- NOTE | 2023-07-17 20:37 | History & Physical Report ---
Date of Service July 17, 2023 Assessment & Plan (1) Wound of right foot: Plan: Recent [place] admission from 07/08 - 07/12 for lower extremity edema and severe PVD; discharged on cefadroxil Returned on 07/16 for worsening of right foot wound/cellulitis; ulcers and necrosis of the first and third digits R Foot XR ordered, pending Patient started on vancomycin and Zosyn in the ED Zosyn --> cefepime q8h given kidney function Continue Vancomycin q12h Daily wound care Wound care nurse consulted Per review of vascular consult note on 07/12, only option for revascularization would be an open surgical bypass Patient is not a good candidate for this given reduced EF, bladder cancer, and CLL AYANA 0.19 Podiatry consulted (Dr. Thomason will see patient on 07/17) Patient will likely require surgery; planning on either or Sunday Okay to continue Eliquis for now and give diet Acetaminophen as needed for pain 1-3 Dilaudid IV q4h as needed for breakthrough pain A.m. CBC, BMP, CRP (2) Cellulitis of right lower extremity: Plan: Erythema on the dorsal aspect of the right foot and right lower extremity Leukocytosis at 12.68 on arrival with a neutrophil predominance Antibiotics (as above) ESR and CRP ordered, pending (3) Atrial fibrillation: Plan: S/p ablation in 2017 Continue Eliquis (4) Bladder carcinoma: Plan: S/p TURBT x 2 in November 2022 and April 2023 Continue outpatient urologic follow-up (5) Elevated troponin: Plan: 31.6-->31.2 Continuous telemetry monitoring (6) Chronic respiratory failure with hypoxia: Plan: Chronic respiratory failure with COPD Baseline 3L NC continuous No wheezing or increased oxygen demands to suggest acute COPD exacerbation (7) CLL (chronic lymphocytic leukemia): (8) Peripheral arterial disease: (9) CAD (coronary artery disease): (10) Diabetic foot ulcer: Plan Disposition: Admit to [facility] telemetry Full code AHA diet VTE PPx: On Eliquis History of Present Illness Chief Complaint: R foot wound Primary Care Provider: Corey Rodriguez is a 73-year-old male with PMH of atrial fibrillation (on Eliquis), CAD, CLL, bladder carcinoma, PAD, and right foot wound. [place] was [place] for LE edema, right foot infection, and severe PVD. He returned on 07/16 with a worsening of his right toe ulcers, which are now necrotic. Patient has been changing his dressing daily as instructed. He first noticed swelling shortly after discharge, and then erythema developed yesterday on 07/15. At present, he is having burning pain in his right toes, which he rates 5/10. No radiation beyond the right foot. He has been taking Tylenol at home, which has not been helping. Not applying any creams, lotions, or ointments, but has been using antimicrobial dressing and covering with gauze. He is also been trying to elevate his legs for swelling. Patient was told to take his remaining cefadroxil tablets upon discharge, which were previously prescribed on 07/01; he took 4 total capsules at home. Patient does have a history of diabetes, and reports that he checks his blood sugar twice daily, and watches his diet. He wears supplemental oxygen 3L NC at baseline. He does have a history of cellulitis, or what he believes to be cellulitis in his foot. He is unsure when the blackness/necrosis developed over his toes, as he is unable to see the bottoms of them. He has been using a walker lately for ambulation. He also endorses ongoing neck pain, which he attributes to difficulty sleeping with his recent hospital stay; worse with movements. He has been sleeping in a rocking chair at home for the neck pain, and leg elevation. Patient is a former tobacco cigarette smoker; quit smoking in August 2015. He quit alcohol in January 2012. Vital stable at time of admission. ED course: Vancomycin 1500 mg IV Zosyn 4.5 g IV ROS: Patient endorses neck pain, burning pain in R toes, lightheadedness with standing, tension HAs (due to neck pain that started last week; patient attributes to bed sleeping in the hospital), decreased urinary frequency & volume, and N/T in both legs bilaterally (especially bottom of right foot). Patient denies fever, chills, nightsweats, chest pain, chest palpitations, SOB, abdominal pain, N/V/D, burning with urination, or blood in urine/stool, Allergies Allergy/AdvReac Type Severity Reaction Status Date / Time enalapril Allergy Severe Angioedema Verified 04/09/24 20:41 brimonidine [From Sunita] Allergy Intermediate Hives Verified 07/17/23 20:41 timolol Allergy Intermediate Hives Verified 07/17/23 20:41 Home Medications Medication Instructions Recorded Confirmed Type aspirin 81 mg tablet,delayed 81 mg PO QAM 11/01/22 07/17/23 History release atorvastatin 40 mg tablet 40 mg PO PM 11/01/22 07/17/23 History budesonide 160 mcg-glycopyr 9 2 inh inhalation BID 11/01/22 07/17/23 History mcg-formot 4.8 mcg/actuation HFA inhaler (Breztri Aerosphere) calcium carbonate 600 mg PO QAM 11/01/22 07/17/23 History carvedilol 3.125 mg tablet 3.125 mg PO BID 11/01/22 07/17/23 History cyanocobalamin (vitamin B-12) 1,000 mcg PO QAM 11/01/22 07/17/23 History 1,000 mcg tablet empagliflozin 10 mg tablet 10 mg PO QAM 11/01/22 07/17/23 History (Jardiance) ferrous sulfate 27 mg iron tablet 27 mg PO QAM 11/01/22 07/17/23 History furosemide 40 mg tablet (Lasix) 40 mg PO BID 11/01/22 07/17/23 History hydralazine 25 mg tablet 25 mg PO TID 11/01/22 07/17/23 History nitroglycerin 0.4 mg sublingual 0.4 mg sublingual UD PRN Chest Pain 11/01/22 07/17/23 History tablet potassium chloride 20 mEq 20 meq PO QAM 11/01/22 07/17/23 History tablet,extended release psyllium husk 3.4 gram/5.4 gram 1 tbsp PO QAM 11/01/22 07/17/23 History oral powder (Metamucil) dimenhydrinate 50 mg tablet 50 mg PO Q8H PRN Nausea 12/14/22 07/17/23 History (Dramamine) apixaban 5 mg tablet (Eliquis) 5 mg PO BID 05/03/23 07/17/23 History acetaminophen 500 mg tablet 1,000 mg PO Q6H PRN Pain 05/09/23 07/17/23 History multivitamin 1 tab PO QAM 07/09/23 07/17/23 History Past Med/Surg History Medical History Chronic respiratory failure with hypoxia CAD (coronary artery disease) CABG x 2 07/2016 Angioplasty 1996 Atrial fibrillation On Eliquis s/p ablation 2017 CKD (chronic kidney disease) Valvular heart disease History of cellulitis Right Great toe- completed antibiotics Swelling and erythema significantly improved but still has mild pain (improved from previous) ICD (implantable cardioverter-defibrillator) in place 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 Ortega Dyslipidemia HTN (hypertension) Ischemic cardiomyopathy ICD 09/2021 History of gout CLL (chronic lymphocytic leukemia) known hx x years Diabetes mellitus, type 2 NIDDM Hard of hearing No hearing aids Myocardial Infarction 1996 & 2016 Chronic obstructive pulmonary disease 3L via continuous Bladder carcinoma bcg treatments Surgical History History of bladder surgery TURBT History of anesthesia reaction slow to wake History of bone marrow biopsy Right node Lymph node biopsy (04/23/23)- CLL/SLL, negative for metastatic carcinoma History of colonoscopy H/O wisdom tooth extraction History of tonsillectomy History of adenoidectomy History of cataract surgery bilateral S/P ICD (internal cardiac defibrillator) procedure Implanted 2021>last checked February 2022 ? type S/P ablation of atrial fibrillation S/P angioplasty no stents S/P CABG x 2 2016 Family History Other No family history of adverse response to anesthesia Social History Smoking Status: Former smoker Tobacco Type: Cigarettes Smoking End Date: August 2015; Second Hand Exposure: No; Do You Dip or Chew Tobacco: No; Hx Alcohol Use: Yes Hx Substance Use: No Preferred Language: Tamazight Communication Ability: Effective Sleep Medicine Physician Required: No Beliefs That Will Affect Care: None Current Living Situation: Spouse Feels Safe at Home: Yes Assistive Devices: Glasses, Oxygen - Continuous and Walker Review of Systems 2 Review of Systems: See HPI above Physical Exam 2 Physical Exam: General: no acute distress; non-toxic appearing; well-nourished; cooperative HEENT: normocephalic, atraumatic; no scleral icterus; PERRLA w/ EOMs intact; moist mucus membrane; vision and hearing grossly intact Neck: supple; no lymphadenopathy; trachea midline Skin: warm, dry without signs of tenting; no cyanosis; no rashes, bruising, lesions, or erythema noted CV: chest wall NTP; RRR; S1/S2 normal; no murmurs/rubs/gallops; pulses intact and symmetric at radial, DP, and PT Lungs: no acute respiratory distress; symmetrical chest wall expansion; clear breath sounds across all lung gomez w/o adventitious sounds; no wheezing ABD: Soft, NTP; BS present; no rebound/guarding; no distention MSK: no tics or fasciculations; no edema noted in the LEs b/l, nonerythematous Right foot: Cold to touch; necrotic first, third, and fourth toes (see photos below); erythema on the dorsal aspect of the right foot, as well as the anterior aspect of the right lower extremity; patient demonstrates ability to wiggle toes bilaterally; difficult to obtain pulses at DP/PT in both feet bilaterally Neuro: A&Ox3; normal mood and affect; fluent speech; no focal deficits; patient reports intact, symmetric sensation in the LEs bilaterally Results & Data Results & Data Vital Signs (Past 12 Hours) Vital Signs Temp Pulse Pulse Resp BP BP Pulse Ox 07/17/23 19:30 86 18 130/101 H 97 07/17/23 19:05 92 H 20 128/93 96 07/17/23 18:00 97 H 18 159/86 H 95 07/17/23 17:56 94 H 07/17/23 17:54 96 07/17/23 16:40 105 H 26 H 150/74 H 98 07/17/23 14:27 36.6 C 18 95 07/17/23 14:19 36.6 C 98 H 18 153/76 H 95 O2 Del Method O2 Flow Rate 07/17/23 19:30 07/17/23 19:05 07/17/23 18:00 Nasal Cannula 3 07/17/23 17:56 07/17/23 17:54 Room Air 07/17/23 16:40 07/17/23 14:27 Nasal Cannula 3 07/17/23 14:19 Nasal Cannula 3 Laboratory Results Abnormal lab results 07/17/23 07/17/23 Range/Units 14:55 16:39 WBC 12.68 H (4.8-10.8) K/ul RBC 3.75 L (4.70-6.10) M/uL Hgb 12.3 L (14.0-18.0) g/dl Hct 38.2 L (42.0-52.0) % MCV 101.9 H (80.0-100.0) fL RDW Std Deviation 55.1 H (36.4-46.3) fL RDW Coeff of Sharmaine 14.8 H (11.5-14.5) % Neut # (Auto) 7.27 H (1.40-6.50) K/uL Lymph # (Auto) 4.37 H (1.20-3.40) K/uL [place] # (Auto) 0.82 H (0.11-0.59) K/uL BUN 29 H (6-23) mg/dl Creatinine 1.56 H (0.6-1.4) mg/dl ALT 78 H (7-52) U/L Troponin I High Sens 31.6 H 31.2 H (0-20) pg/ml Diagnostic Findings Chest X-Ray 07/17/23 14:33 XR chest 1V not portable HISTORY: 73 years-old Male Chest pain, nonspecific COMPARISON: 07/09/2023 TECHNIQUE: PA view of the chest FINDINGS: Cardiac silhouette is enlarged. Left subclavian pacer/AICD. Median sternotomy. Chronic interstitial coarsening without pneumothorax, pleural effusion or airspace consolidation. Bones appear grossly intact. IMPRESSION: Cardiomegaly without acute process. ACT 112: Negative or not required by law. The above report was generated using voice recognition software. It may contain grammatical, syntax or spelling errors. Electronically signed by: John Gunderson M.D. 07/17/2023 3:47 PM Code Status & VTE Plan Code Status Full code VTE Prophylaxis Plan VTE Prophylaxis will be ordered: Yes Supervising Physician Co-Signing Physician Notes Patient seen and examined, chart reviewed, case discussed with SAMUEL Kilgore and I agree with the assessment and plan as above. In brief, patient is a 73yo male with history of AF, CAD, CLL, bladder CA, PAD and right foot wound. Patient was recently hospitalized with LE edema and right foot wound. He has been on Cefadroxil at home and performing routine dressing changes. He returns with worsening cellulitis, ulcers and necrosis. Vanc and Zosyn in the ER. Patient follows with vascular for his PVD. On exam patient is afebrile, HD stable, nontoxic in appearance +S1/S2, regular, no m/r/g Lungs CTA Abd soft, NT/ND Pain in the posterior neck with muscle spasm Right toes with dusky discoloration, ulcers an dnecrosis of 1st and 3rd digits Xray does not appear to have osteomyelitis per my read Patient has seen Dr. Thomason, planning for OR this week Assessment/Plan -Continue antibiotic coverage - Vancomycin and Zosyn -Pain control -Podiatry consultation appreciated Will hold ASA and Eliquis for now in preparation for possible surgery - please resume when able Remainder as above PG Care Time/CCT Total # of Minutes Spent Total Time Spent with Patient: Total time spent is greater than 50% in coordination of care (as documented) at patient's floor/unit and/or counseling patient: Coding [place] [address] INT INP/OBS CARE 2/55MIN Patient Type Established Medical Decision Making Moderate Complexity Diagnoses Wound of right foot S91.301A Cellulitis of right lower extremity L03.115 Atrial fibrillation I48.91 Bladder carcinoma C67.9 Elevated troponin R79.89 Chronic respiratory failure with hypoxia J96.11 CLL (chronic lymphocytic leukemia) C91.10 Peripheral arterial disease I73.9 CAD (coronary artery disease) I25.10 Diabetic foot ulcer E11.621; L97.509 Diabetic foot ulcer location: toe Laterality: right Non-pressure ulcer stage: with other severity (10) Diabetic foot ulcer Diabetic foot ulcer location: toe Laterality: right Non-pressure ulcer stage: with other severity
[2023-07-17] MEDS ORDERED: DEXTROSE 50% 50 ML SYRINGE IV PRN (23:53)
[2023-07-17] MEDS ORDERED: GLUCAGON FOR INJ 1 MG VIAL SQ PRN (23:53)
[2023-07-17] MEDS ORDERED: ONDANSETRON INJ 2 MG/ML 2 ML VIAL IV PRN (23:53)
[2023-07-17] MEDS ORDERED: GLUCOSE 40% GEL 15 GM TUBE PO PRN (23:53)
[2023-07-17] MEDS ORDERED: CARBOHYDRATES FOR HYPOGLYCEMIA PO PRN (23:53)
[2023-07-17] MEDS ORDERED: GLUCOSE 10 TAB/TUBE PO PRN (23:53)
[2023-07-18] MEDS ORDERED: Patient's HEIGHT &/or WEIGHT Needed STA (00:57)
[2023-07-18] MEDS: APIXABAN 5 MG TABLET PO SCH (01:23)
[2023-07-18] MEDS: carvediloL 3.125 MG TAB PO SCH (01:24)
[2023-07-18] MEDS: FUROSEMIDE 40 MG TAB PO SCH ×3 (01:25→16:10)
[2023-07-18 01:35] LABS: C Reactive Protein < 0.50 mg/dl (0-0.5)
[2023-07-18] MEDS: CEFEPIME 2,000 MG in SYRINGE 0 ML IV SCH (02:00)
[2023-07-18] MEDS: POTASSIUM CHLORIDE CRTAB 20 MEQ TABCR PO SCH (05:27)
[2023-07-18 06:18] LABS: Basophils # (auto) 0.06 K/uL (0.00-0.20); Basophils % (auto) 0.5 %; Eosinophils # (auto) 0.13 K/uL (0.00-0.50); Hematocrit (blood only) 36.8 % (42.0-52.0); Hemoglobin 11.6 g/dl (14.0-18.0); Immature Granulocytes # (auto) 0.04 K/uL (0.01-0.20); Immature Granulocytes % (auto) 0.3 %; Lymphocytes # (auto) 4.39 K/uL (1.20-3.40); Lymphocytes % (auto) 34.2 %; Mean Corpuscular Hemoglobin 32.4 pg (25.0-34.0); Mean Corpuscular Hgb Conc 31.5 g/dL (32.0-36.0); Mean Corpuscular Volume 102.8 fL (80.0-100.0); Mean Platelet Volume 10.5 fL (9.4-12.4); Monocytes # (auto) 0.87 K/uL (0.11-0.59); Monocytes % (auto) 6.8 %; Neutrophils # (auto) 7.34 K/uL (1.40-6.50); Neutrophils % (auto) 57.2 %; Platelet Count 324 K/uL (130-400); RDW Coefficient of Variation 14.7 % (11.5-14.5); RDW Standard Deviation 55.9 fL (36.4-46.3); Red Blood Count 3.58 M/uL (4.70-6.10); White Blood Count 12.83 K/ul (4.8-10.8)
[2023-07-18] MEDS: CYCLOBENZAPRINE HCL 5 MG TAB PO STA (06:34)
[2023-07-18 06:43] LABS: C Reactive Protein 5.3 mg/dl (0-0.5); Creatinine Clr Calc Pharmacy 42.3 ml/min; Est GFR (African American) 51.2 ml/min; Est GFR (Non-African American) 44.1 ml/min; Potassium 4.2 mmol/L (3.5-5.1)
--- NOTE | 2023-07-18 07:38 | XRay Report ---
XR foot RT min 3V routine HISTORY: 73 years-old Male swelling, ulcers over 1,3,4th digits acute pain and swelling of the right foot COMPARISON: None TECHNIQUE: 3 views of the right foot FINDINGS: Arterial calcifications. Large plantar calcaneal enthesophyte. Mild to moderate multifocal osteoarthr itis. Diffuse soft tissue swelling. No acute fracture, dislocation or osseous erosion. IMPRESSION: Soft tissue swelling without acute osseous abnormality. ACT 112: Negative or not required by law. The above report was generated using voice recognition software. It may contain grammatical, syntax o r spelling errors. Electronically signed by: John Gunderson M.D. 07/18/2023 7:36 AM
[2023-07-18 07:52] LABS: Estimated Average Glucose 148 mg/dl; Hemoglobin A1C 6.8 % (4.5-5.6)
[2023-07-18] MEDS: FLUTICASONE FUROATE 200MCG 14 PUFFS/INHALER INH SCH (08:01)
[2023-07-18] MEDS: UMECLIDINIUM/VILANTEROL 62.5/25MCG 7 PUFFS/INHALER INH SCH (08:01)
[2023-07-18] MEDS: VANCOMYCIN HCL 1,000 MG in SODIUM CHLORIDE 0.9% 250 ML IV SCH (08:01)
[2023-07-18] MEDS: PSYLLIUM or GUAR GUM FIBER 4GM PACKET PO SCH (08:02)
[2023-07-18] MEDS: hydrALAZINE HCL 25 MG TAB PO SCH (08:02)
[2023-07-18] MEDS: FERROUS SULFATE 325 MG TAB PO SCH (08:02)
[2023-07-18] MEDS: INSULIN ASPART PER UNIT CHARGE SC SCH (08:56)
[2023-07-18] MEDS: LANTUS PER UNIT CHARGE SQ SCH (08:57)
[2023-07-18] MEDS ORDERED: ASPIRIN 81 MG ECTAB PO SCH (09:00)
[2023-07-18] MEDS ORDERED: NON-FORMULARY MEDICATION (Budesonide-Glycopyr-Formoterol [Breztri Aerosphere] 160-9-4.8 mc INH SCH (09:00)
--- NOTE | 2023-07-18 10:37 | Pharmacy Report ---
Pharmacy PK ABX Note - Date of Service July 18, 2023 - Assessment and Plan Assessment 73 year old M receiving cefepime/vancomycin for treatment of right foot wound/infection and right lower leg cellulitis. Pertinent microbiologic data includes: blood cultures pending Day # 1 of antimicrobial therapy. Plan Vancomycin * Loading dose: 1500 mg IV x 1 * Maintenance dose: 1000 mg IV every 8 hours * Regimen is predicted to achieve target AUC/GIOVANNI of 400-600 mg/L.hr * Random level ordered for: 07/20/23 with AM labs Pharmacy will continue to follow and will adjust dose/frequency as necessary. Thank you. Pharmacy has transitioned to AUC monitoring for vancomycin. AUC/GIOVANNI is the preferred PK/PD target and is associated with decreased risk of nephrotoxicity compared to traditional trough targets.
[2023-07-18] MEDS: ACETAMINOPHEN 325 MG TAB PO PRN (11:43)
--- NOTE | 2023-07-18 11:49 | Hospitalist Progress Note ---
Date of Service July 18, 2023 Assessment & Plan (1) Wound of right foot: Plan: Recent [place] admission from 07/08 - 07/12 for lower extremity edema and severe PVD; discharged on cefadroxil Returned on 07/16 for worsening of right foot wound/cellulitis; ulcers and necrosis of the first and third digits R Foot XR ordered, pending Patient started on vancomycin and Zosyn in the ED Zosyn --> cefepime q8h given kidney function Continue Vancomycin q12h Daily wound care Wound care nurse consulted Per review of vascular consult note on 07/12, only option for revascularization would be an open surgical bypass Patient is not a good candidate for this given reduced EF, bladder cancer, and CLL AYANA 0.19 Podiatry consulted (Dr. Thomason will see patient on 07/17) Patient will likely require surgery; planning on either or Sunday hold Eliquis for now and give diet Acetaminophen as needed for pain 1-3 Dilaudid IV q4h as needed for breakthrough pain A.m. CBC, BMP, CRP (2) Cellulitis of right lower extremity: Plan: Erythema on the dorsal aspect of the right foot and right lower extremity Leukocytosis at 12.68 on arrival with a neutrophil predominance Antibiotics (as above) ESR and CRP ordered, pending (3) Atrial fibrillation: Plan: S/p ablation in 2018 hold eliquis (4) Bladder carcinoma: Plan: S/p TURBT x 2 in November 2022 and April 2023 Continue outpatient urologic follow-up (5) Elevated troponin: Plan: demand ischemia due to infection 31.6-->31.2 Continuous telemetry monitoring (6) Chronic respiratory failure with hypoxia: Plan: Chronic respiratory failure with COPD Baseline 3L NC continuous No wheezing or increased oxygen demands to suggest acute COPD exacerbation (7) CLL (chronic lymphocytic leukemia): (8) Peripheral arterial disease: (9) CAD (coronary artery disease): (10) Diabetic foot ulcer: Plan Disposition: Admit to [facility] telemetry Full code AHA diet VTE PPx: On Eliquis Admission and Anticipated Discharge Date Admission Date: July 17, 2023 Subjective reports foot pain Review of Systems Review of Systems: See HPI above Physical Exam Physical Exam: General: no acute distress; non-toxic appearing; well-nourished; cooperative HEENT: normocephalic, atraumatic; no scleral icterus; PERRLA w/ EOMs intact; moist mucus membrane; vision and hearing grossly intact Neck: supple; no lymphadenopathy; trachea midline Skin: warm, dry without signs of tenting; no cyanosis; no rashes, bruising, lesions, or erythema noted CV: S1/S2 normal; no murmurs/rubs/gallops; pulses intact and symmetric at radial, DP, and PT Lungs: no acute respiratory distress; symmetrical chest wall expansion; clear breath sounds across all lung gomez w/o adventitious sounds; no wheezing ABD: Soft, NTP; BS present; no rebound/guarding; no distention MSK: no tics or fasciculations; no edema noted in the LEs b/l, nonerythematous Right foot: Cold to touch; necrotic first, third, and fourth toes (see photos below); erythema on the dorsal aspect of the right foot, as well as the anterior aspect of the right lower extremity; Neuro: A&Ox3; normal mood and affect; fluent speech; no focal deficits; patient reports intact, symmetric sensation in the LEs bilaterally Results & Data Results & Data Vital Signs (Past 12 Hours) Vital Signs Temp Pulse Resp BP Pulse Ox O2 Del Method O2 Flow Rate 07/18/23 11:35 36.8 C 67 17 130/79 94 Nasal Cannula 3 07/18/23 08:00 Nasal Cannula 3 07/18/23 07:45 36.5 C 86 18 130/71 96 Room Air 07/18/23 03:00 36.5 C 90 20 152/84 H 97 Nasal Cannula 3 Laboratory Results Abnormal lab results 07/17/23 07/17/23 07/18/23 Range/Units 14:55 16:39 05:44 WBC 12.68 H 12.83 H (4.8-10.8) K/ul RBC 3.75 L 3.58 L (4.70-6.10) M/uL Hgb 12.3 L 11.6 L (14.0-18.0) g/dl Hct 38.2 L 36.8 L (42.0-52.0) % MCV 101.9 H 102.8 H (80.0-100.0) fL MCHC 31.5 L (32.0-36.0) g/dL RDW Std Deviation 55.1 H 55.9 H (36.4-46.3) fL RDW Coeff of Sharmaine 14.8 H 14.7 H (11.5-14.5) % Neut # (Auto) 7.27 H 7.34 H (1.40-6.50) K/uL Lymph # (Auto) 4.37 H 4.39 H (1.20-3.40) K/uL [place] # (Auto) 0.82 H 0.87 H (0.11-0.59) K/uL ESR 67 H (0-20) mm/hr BUN 29 H 26 H (6-23) mg/dl Creatinine 1.56 H 1.53 H (0.6-1.4) mg/dl Glucose 110 H (70-99(Fasting)) mg/dl POC Glucose (70-99) mg/dl Hemoglobin A1c 6.8 H (4.5-5.6) % ALT 78 H (7-52) U/L Troponin I High Sens 31.6 H 31.2 H (0-20) pg/ml C-Reactive Protein 5.30 H (0-0.5) mg/dl 07/18/23 Range/Units 08:06 WBC (4.8-10.8) K/ul RBC (4.70-6.10) M/uL Hgb (14.0-18.0) g/dl Hct (42.0-52.0) % MCV (80.0-100.0) fL MCHC (32.0-36.0) g/dL RDW Std Deviation (36.4-46.3) fL RDW Coeff of Sharmaine (11.5-14.5) % Neut # (Auto) (1.40-6.50) K/uL Lymph # (Auto) (1.20-3.40) K/uL [place] # (Auto) (0.11-0.59) K/uL ESR (0-20) mm/hr BUN (6-23) mg/dl Creatinine (0.6-1.4) mg/dl Glucose (70-99(Fasting)) mg/dl POC Glucose 116 H (70-99) mg/dl Hemoglobin A1c (4.5-5.6) % ALT (7-52) U/L Troponin I High Sens (0-20) pg/ml C-Reactive Protein (0-0.5) mg/dl PG Care Time/CCT Total # of Minutes Spent Total Time Spent with Patient: Total time spent is greater than 50% in coordination of care (as documented) at patient's floor/unit and/or counseling patient: Coding Level of Care Code 36048 SUB INP/OBS CARE 235MIN Diagnoses Wound of right foot S91.301A Cellulitis of right lower extremity L03.115 Atrial fibrillation I48.91 Bladder carcinoma C67.9 Elevated troponin R79.89 Chronic respiratory failure with hypoxia J96.11 CLL (chronic lymphocytic leukemia) C91.10 Peripheral arterial disease I73.9 CAD (coronary artery disease) I25.10 Diabetic foot ulcer E11.621; L97.509 Diabetic foot ulcer location: toe Laterality: right Non-pressure ulcer stage: with other severity (10) Diabetic foot ulcer Diabetic foot ulcer location: toe Laterality: right Non-pressure ulcer stage: with other severity
--- NOTE | 2023-07-18 15:21 | Podiatry Consultation ---
Date of Consultation July 18, 2023 Assessment & Plan (1) Diabetic foot ulcer: Diabetic foot ulcer location: toe Laterality: right Non-pressure ulcer stage: with other severity Diabetes mellitus type: type 2 Qualified Code(s): E11.621 - Type 2 diabetes mellitus with foot ulcer; L97.518 - Non- pressure chronic ulcer of other part of right foot with other specified severity (2) Cellulitis of right lower extremity: (3) Peripheral arterial disease: (4) Wound of right foot: (5) Gangrene of right foot: Plan - Patient was examined and evaluated. - We discussed etiology and treatment of his right foot ulcers and gangrene. - Use do appear significantly worse than they were last week, though we did not see him in person. - We were consult at the time but was out of town and discussed that based on the imaging from the hospital at the time, he could follow up outpatient. - Since he has subjectively and objectively worsened in that time, he now requires surgical intervention of some sort. - From our foot perspective, he could benefit potentially from either a excisional debridement or a transmetatarsal agitation. It is of my belief that he does not have the vascular status to heal either of these procedures and that either one is likely to make him worse rather than help improve his status. - A did review the notes from the vascular team who suggest use likely to benefit more from an AK amputation rather than a bypass. Without a bypass is transmetatarsal amputation or excisional debridement is likely to fail. We will work with them on determining that more definitive plan. I did discuss these options at length with the patient as well as reaching out to Maria Elena with Dr. Worrell's team - For now, we'll plan on holding off on surgery, which is originally thinking could happen tomorrow. We will wait for any further vascular input or any more permanent surgical planning. - Until then, continue with wound care. An order was sent in for Santyl ointment to be applied daily to the forefoot. This can be performed by nursing staff, though a dedicated wound care consult as always appreciated as well. - Thank you for the consult, we will forward to helping Mr. Flynn out as much as we can. History of Present Illness Reason for Consultation: Right foot gangrene Attending Physician: Dipika Lindsay MD History of Present Illness This patient is a recent hospital admission after a recent hospital discharge for right foot ulcerations and infection. He was discharged last week and instructed to follow-up palpation but began worsening more acutely before he could get in for outpatient care. Because of this, he presented back to the emergency department for further treatment options. He has been on antibiotics and has been doing home wound care but has not noticed improvement in the last week or so. Overall, he does not believe these wounds have been there for 2 long and did begin as a blister. Now, the great toe and lesser toes are blackening with drastic increase in pain. He now has pain throughout the day that has not improved as well. He denies systemic signs of infection at this point and does feel better on antibiotics. He currently has no wound dressing intact to the foot and has an appetite for his lunch. Allergies Allergy/AdvReac Type Severity Reaction Status Date / Time enalapril Allergy Severe Angioedema Verified 07/17/23 20:41 brimonidine [From Combigan] Allergy Intermediate Hives Verified 07/17/23 20:41 timolol Allergy Intermediate Hives Verified 07/17/23 20:41 Home Medications Medication Instructions Recorded Confirmed Type aspirin 81 mg tablet,delayed 81 mg PO QAM 11/01/22 07/17/23 History release atorvastatin 40 mg tablet 40 mg PO PM 11/01/22 07/17/23 History budesonide 160 mcg-glycopyr 9 2 inh inhalation BID 11/01/22 07/17/23 History mcg-formot 4.8 mcg/actuation HFA inhaler (Breztri Aerosphere) calcium carbonate 600 mg PO QAM 11/01/22 07/17/23 History carvedilol 3.125 mg tablet 3.125 mg PO BID 11/01/22 07/17/23 History cyanocobalamin (vitamin B-12) 1,000 mcg PO QAM 11/01/22 07/17/23 History 1,000 mcg tablet empagliflozin 10 mg tablet 10 mg PO QAM 11/01/22 07/17/23 History (Jardiance) ferrous sulfate 27 mg iron tablet 27 mg PO QAM 11/01/22 07/17/23 History furosemide 40 mg tablet (Lasix) 40 mg PO BID 11/01/22 07/17/23 History hydralazine 25 mg tablet 25 mg PO TID 11/01/22 07/17/23 History nitroglycerin 0.4 mg sublingual 0.4 mg sublingual UD PRN Chest Pain 11/01/22 07/17/23 History tablet potassium chloride 20 mEq 20 meq PO QAM 11/01/22 07/17/23 History tablet,extended release psyllium husk 3.4 gram/5.4 gram 1 tbsp PO QAM 11/01/22 07/17/23 History oral powder (Metamucil) dimenhydrinate 50 mg tablet 50 mg PO Q8H PRN Nausea 12/14/22 07/17/23 History (Dramamine) apixaban 5 mg tablet (Eliquis) 5 mg PO BID 05/03/23 07/17/23 History acetaminophen 500 mg tablet 1,000 mg PO Q6H PRN Pain 05/09/23 07/17/23 History multivitamin 1 tab PO QAM 07/09/23 07/17/23 History Patient History Medical History SOB (shortness of breath) Chronic respiratory failure with hypoxia CAD (coronary artery disease) CABG x 2 07/2016 Angioplasty 1996 Atrial fibrillation On Eliquis s/p ablation 2017 CKD (chronic kidney disease) Valvular heart disease History of cellulitis Right Great toe- completed antibiotics Swelling and erythema significantly improved but still has mild pain (improved from previous) ICD (implantable cardioverter-defibrillator) in place 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 before school, Implant date 10/05/2021 CHF (congestive heart failure) followed by Dr. Ortega Dyslipidemia HTN (hypertension) Ischemic cardiomyopathy ICD 09/2021 History of gout CLL (chronic lymphocytic leukemia) known hx x years Diabetes mellitus, type 2 NIDDM Hard of hearing No hearing aids Myocardial Infarction 1996 & 2016 Chronic obstructive pulmonary disease 3L via continuous Bladder carcinoma bcg treatments Surgical History History of bladder surgery TURBT History of anesthesia reaction slow to wake History of bone marrow biopsy Right node Lymph node biopsy (04/23/23)- CLL/SLL, negative for metastatic carcinoma History of colonoscopy H/O wisdom tooth extraction History of tonsillectomy History of adenoidectomy History of cataract surgery bilateral S/P ICD (internal cardiac defibrillator) procedure Implanted 2021>last checked February 2022 ? type S/P ablation of atrial fibrillation S/P angioplasty no stents S/P CABG x 2 2016 Family History Other No family history of adverse response to anesthesia Social History Smoking Status: Former smoker Tobacco Type: Cigarettes Smoking End Date: August 2015; Second Hand Exposure: No; Do You Dip or Chew Tobacco: No; Hx Alcohol Use: Yes Hx Substance Use: No Preferred Language: Bulgarian Communication Ability: Effective Credit Clerk Required: No Beliefs That Will Affect Care: None Current Living Situation: Spouse Feels Safe at Home: Yes Assistive Devices: Oxygen - Continuous Review of Systems Review of Systems: All systems reviewed & are unremarkable except as noted in HPI & below Constitutional: no fever, no chills, no fatigue and no anorexia Eyes: no problem reported Ear, Nose, Mouth, Throat: no problem reported Respiratory: no problem reported Cardiovascular: + edema and + claudication; no chest rafiq n and no calf pain Gastrointestinal: no problem reported Genitourinary: no problem reported Musculoskeletal: + swelling Integumentary: + non-healing lesions, + skin ulcer and + erythema Neurologic: + loss of sensation and + paresthesia; n o behavioral changes, no confusion and no memory loss Psychiatric: no behavioral changes, no depression and no problem reported Physical Exam Physical Exam: Bilateral lower extremity exam: DP/PT pulses 0/4 bilaterally. Advanced trophic changes are noted to the skin with absent hair growth and distal cooling appreciated. There is gangrene noted to the right hallux and third and fourth toes. No ascending cellulitis is noted. No Bleeding or purulent drainage noted on exam. There is pitting edema diffusely to the lower extremity bilaterally. CFT is brisk to the digits, other than the right first third and fourth toes in the area of the gangrene. Muscle strength is equal and full bilaterally with no pain on range of motion. Subjective decrease in sensation as noted, other than this acute pain to the right lower Lower extremity. Constitutional: WD/WN, vitals as above + ill appearing and + obese; no acute distress Eyes: PERRL, conjunctivae normal, anicteric sclerae ENMT: external ear and nose normal, oropharynx normal Mouth: + poor dentition Neck: trachea midline, no thyromegaly Respiratory: normal respiratory effort, lungs clear to auscultation Cardiovascular: Rate/Rhythm: regular rate and regular rhythm Vessels: + posterior tibial pulses abnormal and + dorsalis pedis pulses abnormal Extremities: + pedal edema, + edema and + varicosities; + abnormal capillary refill Chest (Breasts): Chest: normal inspection of chest Gastrointestinal (Abdomen): Inspection/Auscultation: abdomen normal to inspection; abdomen not distended Musculoskeletal: Head/Neck/Chest: normocephalic and head atraumatic Extremities: + foot abnormality Skin: + ulcer, + skin tightening, + skin atrop hy and + eschar Trauma: no evidence of skin trauma Neurologic: moves all extremities; + abnormal sensation to monofilament Psychiatric: A+Ox3, euthymic affect Mood: + depressed mood Results & Data Vital Signs (Past 12 Hours) Vital Signs Temp Pulse Resp BP Pulse Ox O2 Del Method O2 Flow Rate 07/18/23 11:35 36.8 C 67 17 130/79 94 Nasal Cannula 3 07/18/23 08:00 Nasal Cannula 3 07/18/23 07:45 36.5 C 86 18 130/71 96 Room Air Diagnostic Findings AYANA of the right lower extremity is 0.19. Subsequent angiography reveals diffuse peripheral vascular disease to the lower extremity. Notes from the vascular surgery team suggests that he is a candidate more of a [id number]-grw-bhiu amputation rather than a bypass graft, especially if he fails continued treatment.
[2023-07-18] MEDS: CYCLOBENZAPRINE HCL 5 MG TAB PO PRN (17:31)
[2023-07-18] MEDS: ATORVASTATIN 40 MG TAB PO SCH (19:45)
[2023-07-19] MEDS: POTASSIUM CHLORIDE CRTAB 20 MEQ TABCR PO SCH (06:10)
[2023-07-19 07:13] LABS: Basophils # (auto) 0.04 K/uL (0.00-0.20); Basophils % (auto) 0.3 %; Eosinophils # (auto) 0.19 K/uL (0.00-0.50); Eosinophils % (auto) 1.5 %; Hemoglobin 12.1 g/dl (14.0-18.0); Immature Granulocytes # (auto) 0.06 K/uL (0.01-0.20); Immature Granulocytes % (auto) 0.5 %; Lymphocytes # (auto) 4.55 K/uL (1.20-3.40); Lymphocytes % (auto) 35.8 %; Mean Corpuscular Hemoglobin 32.6 pg (25.0-34.0); Mean Corpuscular Hgb Conc 32.7 g/dL (32.0-36.0); Mean Corpuscular Volume 99.7 fL (80.0-100.0); Mean Platelet Volume 10.6 fL (9.4-12.4); Monocytes # (auto) 0.87 K/uL (0.11-0.59); Monocytes % (auto) 6.9 %; Neutrophils # (auto) 6.99 K/uL (1.40-6.50); Platelet Count 342 K/uL (130-400); RDW Coefficient of Variation 14.6 % (11.5-14.5); RDW Standard Deviation 53.6 fL (36.4-46.3); Red Blood Count 3.71 M/uL (4.70-6.10)
[2023-07-19 07:28] LABS: BUN Creatinine Ratio 18.2 (10-20); Calcium 8.9 mg/dl (8.6-10.3); Est GFR (African American) 46.7 ml/min; Est GFR (Non-African American) 40.3 ml/min; Potassium 3.7 mmol/L (3.5-5.1)
--- NOTE | 2023-07-19 14:40 | Hospitalist Progress Note ---
Date of Service July 19, 2023 Assessment & Plan (1) Wound of right foot: Plan: Recent [place] admission from 07/08 - 07/12 for lower extremity edema and severe PVD; discharged on cefadroxil Returned on 07/16 for worsening of right foot wound/cellulitis; ulcers and necrosis of the first and third digits R Foot XR ordered, pending Patient started on vancomycin and Zosyn in the ED Zosyn --> cefepime q8h given kidney function Continue Vancomycin q12h Daily wound care Wound care nurse consulted Per review of vascular consult note on 07/12, only option for revascularization would be an open surgical bypass Patient is not a good candidate for this given reduced EF, bladder cancer, and CLL AYANA 0.19 Podiatry consulted (Dr. Thomason will see patient on 07/17) Patient will likely require surgery; planning on either or Sunday hold Eliquis for now and give diet Acetaminophen as needed for pain 1-3 Dilaudid IV q4h as needed for breakthrough pain A.m. CBC, BMP, CRP podiatry input appreciated consult vascular for AKA (2) Cellulitis of right lower extremity: Plan: Erythema on the dorsal aspect of the right foot and right lower extremity Leukocytosis at 12.68 on arrival with a neutrophil predominance Antibiotics (as above) ESR and CRP elevated (3) Atrial fibrillation: Plan: S/p ablation in 2017 hold eliquis (4) Bladder carcinoma: Plan: S/p TURBT x 2 in November 2022 and April 2023 Continue outpatient urologic follow-up (5) Elevated troponin: Plan: demand ischemia due to infection 31.6-->31.2 Continuous telemetry monitoring (6) Chronic respiratory failure with hypoxia: Plan: Chronic respiratory failure with COPD Baseline 3L NC continuous No wheezing or increased oxygen demands to suggest acute COPD exacerbation (7) CLL (chronic lymphocytic leukemia): (8) Peripheral arterial disease: (9) CAD (coronary artery disease): (10) Diabetic foot ulcer: Plan [facility] AHA diet VTE PPx: On Eliquis Admission and Anticipated Discharge Date Admission Date: July 17, 2023 Subjective reports foot pain , no events overnight Review of Systems Review of Systems: See HPI above Results & Data Results & Data Vital Signs (Past 12 Hours) Vital Signs Temp Pulse Resp BP Pulse Ox O2 Del Method O2 Flow Rate 07/19/23 11:20 36.5 C 86 17 124/74 93 Nasal Cannula 3 07/19/23 07:40 36.9 C 109 H 16 158/79 H 93 Nasal Cannula 3 07/19/23 03:53 36.5 C 108 H 20 146/81 H 95 Room Air PG Care Time/CCT Total # of Minutes Spent Total Time Spent with Patient: Total time spent is greater than 50% in coordination of care (as documented) at patient's floor/unit and/or counseling patient: Coding Level of Care Code 48237 SUB INP/OBS CARE 2/35MIN Diagnoses Wound of right foot S91.301A Cellulitis of right lower extremity L03.115 Atrial fibrillation I48.91 Bladder carcinoma C67.9 Elevated troponin R79.89 Chronic respiratory failure with hypoxia J96.11 CLL (chronic lymphocytic leukemia) C91.10 Peripheral arterial disease I73.9 CAD (coronary artery disease) I25.10 Diabetic ulcer of toe of right foot associated with type 2 diabetes mellitus, with other ulcer severity E11.621; L97.518 Diabetes mellitus type: type 2 Diabetic foot ulcer location: toe Laterality: right Non-pressure ulcer stage: with other severity (10) Diabetic foot ulcer Diabetes mellitus type: type 2 Diabetic foot ulcer location: toe Laterality: right Non-pressure ulcer stage: with other severity Qualified Code(s): E11.621 - Type 2 diabetes mellitus with foot ulcer; L97.518 - Non-pressure chronic ulcer of other part of right foot with other specified severity
[2023-07-19] MEDS: COLLAGENASE OINT 30 GM TUBE EXT SCH (15:26)
--- NOTE | 2023-07-19 23:08 | Electrocardiogram Report ---
Test Reason : Blood Pressure : / mmHG Vent. Rate : 095 BPM Atrial Rate : 115 BPM P-R Int : 000 ms QRS Dur : 114 ms QT Int : 380 ms P-R-T Axes : 000 -16 114 degrees QTc Int : 477 ms Atrial fibrillation with premature ventricular or aberrantly conducted complexes Possible Inferior infarct , age undetermined Cannot rule out Anterior infarct , age undetermined Abnormal ECG When compared with ECG of 09-JUL-2023 14:27, No significant change Confirmed by Be Gavin ([id number]) on 07/19/2023 11:08:05 PM Referred By: Confirmed By:Be Gavin
[2023-07-20 05:55] LABS: Basophils # (auto) 0.05 K/uL (0.00-0.20); Basophils % (auto) 0.4 %; Eosinophils # (auto) 0.18 K/uL (0.00-0.50); Eosinophils % (auto) 1.5 %; Hematocrit (blood only) 35.6 % (42.0-52.0); Hemoglobin 11.8 g/dl (14.0-18.0); Immature Granulocytes # (auto) 0.07 K/uL (0.01-0.20); Immature Granulocytes % (auto) 0.6 %; Lymphocytes # (auto) 4.19 K/uL (1.20-3.40); Lymphocytes % (auto) 34.3 %; Mean Corpuscular Hemoglobin 32.7 pg (25.0-34.0); Mean Corpuscular Hgb Conc 33.1 g/dL (32.0-36.0); Mean Corpuscular Volume 98.6 fL (80.0-100.0); Mean Platelet Volume 10.5 fL (9.4-12.4); Monocytes # (auto) 0.91 K/uL (0.11-0.59); Monocytes % (auto) 7.5 %; Neutrophils % (auto) 55.7 %; Platelet Count 326 K/uL (130-400); RDW Coefficient of Variation 14.6 % (11.5-14.5); RDW Standard Deviation 53.7 fL (36.4-46.3); Red Blood Count 3.61 M/uL (4.70-6.10)
[2023-07-20 06:08] LABS: BUN Creatinine Ratio 17.2 (10-20); Calcium 8.9 mg/dl (8.6-10.3); Est GFR (African American) 43.8 ml/min; Est GFR (Non-African American) 37.8 ml/min; Potassium 3.6 mmol/L (3.5-5.1)
[2023-07-20] MEDS: VANCOMYCIN LEVEL ONE (09:45)
[2023-07-20] MEDS: POTASSIUM CHLORIDE CRTAB 20 MEQ TABCR PO STA (09:45)
[2023-07-20] MEDS: carvediloL 3.125 MG TAB PO ONE (09:48)
--- NOTE | 2023-07-20 11:24 | Pharmacy Report ---
Pharmacy PK ABX Note - Date of Service July 20, 2023 - Assessment and Plan Assessment 07/19: Reviewed vancomycin level, predicting a therapeutic AUC/GIOVANNI, renal function at baseline, vascular consult pending for possible amputation. 07/17: 73 year old M receiving cefepime/vancomycin for treatment of right foot wound/infection and right lower leg cellulitis. Pertinent microbiologic data includes: blood cultures pending Day # 1 of antimicrobial therapy. Plan Vancomycin * Loading dose: 1500 mg IV x 1 * Maintenance dose: 1000 mg IV every 24 hours * Regimen is predicted to achieve target AUC/GIOVANNI of 400-600 mg/L.hr * Random level ordered for: 07/23/23 with AM labs Pharmacy will continue to follow and will adjust dose/frequency as necessary. Thank you. Pharmacy has transitioned to AUC monitoring for vancomycin. AUC/GIOVANNI is the preferred PK/PD target and is associated with decreased risk of nephrotoxicity compared to traditional trough targets.
--- NOTE | 2023-07-20 11:31 | Consultation ---
Date of Consultation July 20, 2023 Assessment & Plan (1) Gangrene of right foot: Pt with nonhealing necrosis of R foot, now readmitted with worsening pain and necrosis. Pt previous imaging reviewed by Dr Worrell, and pt also seen by Dr Worrell today. Pt will have poor healing of R foot toe amp or TMA. Recommend RLE BKA vs AKA to be done in OR. Procedure, risks, benefits, and alternatives discussed with pt by myself at Dr Worrell's request. Pt expresses understanding and agreement to proceed. Will try to schedule early next week. Patient was seen, examined, and chart reviewed. Agree with exam and treatment plan of the Vascular PA. History of Present Illness Reason for Consultation: PAD Attending Physician: Dipika Lindsay MD History of Present Illness 73 yo m with hx of DMII, CAD s/p CABG, COPD, a fib on AC, ischemic cardiomyopathy, ICD placement, TX, low EF, CKD, CLL, bladder ca, hypercholesterolemia, HTN, anemia, gout, admitted with increased R foot pain since d/c from [facility] last week, seen in consultation today for PAD. Pt was seen by vascular surgery last admission and noted to have severe PAD with poor odds for success with bypass. Due to multiple comorbidities and high cardiac risk for extensive bypass surgery, recommended pt continue local wound care with consideration for BKA vs AKA if wounds became significantly worse or pain was intolerable. Pt presented to [facility] again 2 days ago d/t increased pain and concern for worsening infection of R toes. Pt states the pain is severe and intolerable at home, somewhat improved here on pain medication. Denies MACIAS, fever, chest pain, SOB, abd pain, N/V, other complaints. Allergies Allergy/AdvReac Type Severity Reaction Status Date / Time enalapril Allergy Severe Angioedema Verified 07/17/23 20:41 brimonidine [From Combigan] Allergy Intermediate Hives Verified 07/17/23 20:41 timolol Allergy Intermediate Hives Verified 07/17/23 20:41 Home Medications Medication Instructions Recorded Confirmed Type aspirin 81 mg tablet,delayed 81 mg PO QAM 11/01/22 07/17/23 History release atorvastatin 40 mg tablet 40 mg PO PM 11/01/22 07/17/23 History budesonide 160 mcg-glycopyr 9 2 inh inhalation BID 11/01/22 07/17/23 History mcg-formot 4.8 mcg/actuation HFA inhaler (Breztri Aerosphere) calcium carbonate 600 mg PO QAM 11/01/22 07/17/23 History carvedilol 3.125 mg tablet 3.125 mg PO BID 11/01/22 07/17/23 History cyanocobalamin (vitamin B-12) 1,000 mcg PO QAM 11/01/22 07/17/23 History 1,000 mcg tablet empagliflozin 10 mg tablet 10 mg PO QAM 11/01/22 07/17/23 History (Jardiance) ferrous sulfate 27 mg iron tablet 27 mg PO QAM 11/01/22 07/17/23 History furosemide 40 mg tablet (Lasix) 40 mg PO BID 11/01/22 07/17/23 History hydralazine 25 mg tablet 25 mg PO TID 11/01/22 07/17/23 History nitroglycerin 0.4 mg sublingual 0.4 mg sublingual UD PRN Chest Pain 11/01/22 07/17/23 History tablet potassium chloride 20 mEq 20 meq PO QAM 11/01/22 07/17/23 History tablet,extended release psyllium husk 3.4 gram/5.4 gram 1 tbsp PO QAM 11/01/22 07/17/23 History oral powder (Metamucil) dimenhydrinate 50 mg tablet 50 mg PO Q8H PRN Nausea 12/14/22 07/17/23 History (Dramamine) apixaban 5 mg tablet (Eliquis) 5 mg PO BID 05/03/23 07/17/23 History acetaminophen 500 mg tablet 1,000 mg PO Q6H PRN Pain 05/09/23 07/17/23 History multivitamin 1 tab PO QAM 07/09/23 07/17/23 History Patient History Medical History SOB (shortness of breath) Chronic respiratory failure with hypoxia CAD (coronary artery disease) CABG x 2 07/2016 Angioplasty 1996 Atrial fibrillation On Eliquis s/p ablation 2017 CKD (chronic kidney disease) Valvular heart disease History of cellulitis Right Great toe- completed antibiotics Swelling and erythema significantly improved but still has mild pain (improved from previous) ICD (implantable cardioverter-defibrillator) in place 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 Ortega Dyslipidemia HTN (hypertension) Ischemic cardiomyopathy ICD 09/2021 History of gout CLL (chronic lymphocytic leukemia) known hx x years Diabetes mellitus, type 2 NIDDM Hard of hearing No hearing aids Myocardial Infarction 1996 & 2016 Chronic obstructive pulmonary disease 3L via continuous Bladder carcinoma bcg treatments Surgical History History of bladder surgery TURBT History of anesthesia reaction slow to wake History of bone marrow biopsy Right node Lymph node biopsy (04/23/23)- CLL/SLL, negative for metastatic carcinoma History of colonoscopy H/O wisdom tooth extraction History of tonsillectomy History of adenoidectomy History of cataract surgery bilateral S/P ICD (internal cardiac defibrillator) procedure Implanted 2021>last checked February 2022 ? type S/P ablation of atrial fibrillation S/P angioplasty no stents S/P CABG x 2 2016 Family History Other No family history of adverse response to anesthesia Social History Smoking Status: Former smoker Tobacco Type: Cigarettes Smoking End Date: August 2015; Second Hand Exposure: No; Do You Dip or Chew Tobacco: No; Hx Alcohol Use: Yes Hx Substance Use: No Preferred Language: Swedish Communication Ability: Effective Potato Spotter Required: No Beliefs That Will Affect Care: None Current Living Situation: Spouse Feels Safe at Home: Yes Assistive Devices: Oxygen - Continuous Review of Systems Review of Systems: All systems reviewed & are unremarkable except as noted in HPI & below Physical Exam Constitutional: WD/WN, vitals as above cooperative; not in distress Neck: trachea midline Respiratory: normal respiratory effort Auscultation: lungs clear to auscultation bilaterally and + diminished lung sounds Cardiovascular: Rate/Rhythm: + irregularly irregular Vessels: femoral pulses present, posterior tibial pulses present (RLE no doppler, LLE +doppler) and radial pulses present; + abnormal peripheral pulses and + dorsalis pedis pulses abnormal (RLE no doppler, LLE + doppler) Extremities: + abnormal capillary refill (R toes pale/necrotic) and no edema Gastrointestinal (Abdomen): Inspection/Auscultation: abdomen normal to inspection and normal bowel sounds Percussion/Palpation: abdomen soft; abdomen nontender Musculoskeletal: Extremities: strength 5/5 throughout; + extremities abnormal to inspection Skin: + eschar (wet necrosis of R toes) Neurologic: moves all extremities and awake; no focal motor deficits and not confused Psychiatric: A+Ox3, euthymic affect Results & Data Vital Signs (Past 12 Hours) Vital Signs Temp Pulse Pulse Resp BP Pulse Ox O2 Del Method 07/20/23 08:00 36.4 C L 100 H 18 121/74 95 Nasal Cannula 07/20/23 07:55 Nasal Cannula 07/20/23 02:46 36.6 C 93 H 19 146/91 H 94 Nasal Cannula 07/19/23 23:58 103 H O2 Flow Rate 07/20/23 08:00 3 07/20/23 07:55 3 07/20/23 02:46 3 07/19/23 23:58
--- NOTE | 2023-07-20 11:42 | Communication Note ---
Date of Service: July 20, 2023 There is no OR time available until afternoon for his surgery.
--- NOTE | 2023-07-20 15:17 | Hospitalist Progress Note ---
Date of Service July 20, 2023 Assessment & Plan (1) Wound of right foot: Plan: [place]08 - 07/12 for lower extremity edema and severe PVD; discharged on cefadroxil Returned on 07/16 for worsening of right foot wound/cellulitis; ulcers and necrosis of the first and third digits R Foot XR ordered, pending Patient started on vancomycin and Zosyn in the ED Zosyn --> cefepime q8h given kidney function Continue Vancomycin q12h Daily wound care Wound care nurse consulted Per review of vascular consult note on 07/12, only option for revascularization would be an open surgical bypass Patient is not a good candidate for this given reduced EF, bladder cancer, and CLL AYANA 0.19 Podiatry consulted (Dr. Thomason will see patient on 07/17) Patient will likely require surgery; planning on either or Sunday hold Eliquis for now and give diet Acetaminophen as needed for pain 1-3 Dilaudid IV q4h as needed for breakthrough pain A.m. CBC, BMP, CRP podiatry input appreciated 07/19 consulted vascular for AKA , input appreciated , surgery AKA or BKA next week continue antibiotics, pain control (2) Cellulitis of right lower extremity: Plan: Erythema on the dorsal aspect of the right foot and right lower extremity Leukocytosis at 12.68 on arrival with a neutrophil predominance Antibiotics (as above) AKA vs BKA next week (3) Atrial fibrillation: Plan: S/p ablation in 2017 continue Eliquis for now , hold before surgery (4) Bladder carcinoma: Plan: S/p TURBT x 2 in November 2022 and April 2023 Continue outpatient urologic follow-up (5) Elevated troponin: Plan: demand ischemia due to infection 31.6-->31.2 Continuous telemetry monitoring (6) Chronic respiratory failure with hypoxia: Plan: Chronic respiratory failure with COPD Baseline 3L NC continuous No wheezing or increased oxygen demands to suggest acute COPD exacerbation continue oxygen supplementation (7) CLL (chronic lymphocytic leukemia): (8) Peripheral arterial disease: (9) CAD (coronary artery disease): (10) Diabetic foot ulcer: Plan Disposition: Admit to [facility] telemetry Full code AHA diet VTE PPx: On Eliquis Admission and Anticipated Discharge Date Admission Date: July 17, 2023 Subjective reports foot pain , no events overnight Review of Systems Review of Systems: See HPI above Physical Exam Physical Exam: General: no acute distress; non-toxic appearing; well-nourished; cooperative HEENT: normocephalic, atraumatic; no scleral icterus; PERRLA w/ EOMs intact; moist mucus membrane; vision and hearing grossly intact Neck: supple; no lymphadenopathy; trachea midline Skin: warm, dry without signs of tenting; no cyanosis; no rashes, bruising, lesions, or erythema noted CV: S1/S2 normal; no murmurs/rubs/gallops; pulses intact and symmetric at radial, DP, and PT Lungs: no acute respiratory distress; symmetrical chest wall expansion; clear breath sounds across all lung gomez w/o adventitious sounds; no wheezing ABD: Soft, NTP; BS present; no rebound/guarding; no distention MSK: no tics or fasciculations; no edema noted in the LEs b/l, nonerythematous Right foot: Cold to touch; necrotic first, third, and fourth toes (see photos below); erythema on the dorsal aspect of the right foot, as well as the anterior aspect of the right lower extremity; Neuro: A&Ox3; normal mood and affect; fluent speech; no focal deficits; patient reports intact, symmetric sensation in the LEs bilaterally Results & Data Results & Data Vital Signs (Past 12 Hours) Vital Signs Temp Pulse Pulse Resp BP Pulse Ox O2 Del Method 07/20/23 14:58 93 H 07/20/23 11:26 36.3 C L 107 H 16 138/84 95 Room Air 07/20/23 08:00 36.4 C L 100 H 18 121/74 95 Nasal Cannula 07/20/23 07:55 Nasal Cannula O2 Flow Rate 07/20/23 14:58 07/20/23 11:26 07/20/23 08:00 3 07/20/23 07:55 3 PG Care Time/CCT Total # of Minutes Spent Total Time Spent with Patient: Total time spent is greater than 50% in coordination of care (as documented) at patient's floor/unit and/or counseling patient: Coding Level of Care Code 48843 SUB INP/OBS CARE 2/35MIN Diagnoses Wound of right foot S91.301A Cellulitis of right lower extremity L03.115 Atrial fibrillation I48.91 Bladder carcinoma C67.9 Elevated troponin R79.89 Chronic respiratory failure with hypoxia J96.11 CLL (chronic lymphocytic leukemia) C91.10 Peripheral arterial disease I73.9 CAD (coronary artery disease) I25.10 Diabetic ulcer of toe of right foot associated with type 2 diabetes mellitus, with other ulcer severity E11.621; L97.518 Diabetes mellitus type: type 2 Diabetic foot ulcer location: toe Laterality: right Non-pressure ulcer stage: with other severity (10) Diabetic foot ulcer Diabetes mellitus type: type 2 Diabetic foot ulcer location: toe Laterality: right Non-pressure ulcer stage: with other severity Qualified Code(s): E11.621 - Type 2 diabetes mellitus with foot ulcer; L97.518 - Non-pressure chronic ulcer of other part of right foot with other specified severity
[2023-07-20] MEDS: carvediloL 6.25 MG TAB PO SCH (21:04)
[2023-07-21 07:23] LABS: Creatinine Clr Calc Pharmacy 36.4 ml/min; Est GFR (African American) 42.9 ml/min; Uric Acid 6.2 mg/dl (2.6-7.2)
[2023-07-21] MEDS: PNEUMOCOCCAL VACCINE (PCV20) 20-VAL CONJ-DIP CRM/PF 0.5 ML SYR IM ONE (09:34)
[2023-07-21] MEDS: oxyCODONE HCL IR 5 MG TAB (IMMEDIATE RELEASE) PO PRN (11:17)
[2023-07-21] MEDS: CEFEPIME 1,000 MG in SYRINGE 0 ML IV SCH (11:18)
[2023-07-21] MEDS: COLCHICINE 0.6 MG TAB PO ONE (11:18)
[2023-07-21] MEDS: LIDOCAINE 5% 1 PATCH TD STA (11:18)
--- NOTE | 2023-07-21 11:40 | Hospitalist Progress Note ---
Date of Service July 21, 2023 Assessment & Plan (1) Wound of right foot: Plan: Recent [place]08 [place] 07/12 for lower extremity edema and severe PVD; discharged on cefadroxil Returned on 07/16 for worsening of right foot wound/cellulitis; ulcers and necrosis of the first and third digits R Foot XR ordered, pending Patient started on vancomycin and Zosyn in the ED Zosyn --> cefepime q8h given kidney function Continue Vancomycin q12h Daily wound care Wound care nurse consulted Per review of vascular consult note on 07/12, only option for revascularization would be an open surgical bypass Patient is not a good candidate for this given reduced EF, bladder cancer, and CLL AYANA 0.19 Podiatry consulted (Dr. Thomason will see patient on 07/17) Patient will likely require surgery; planning on either or Sunday hold Eliquis for now and give diet Acetaminophen as needed for pain 1-3 Dilaudid IV q4h as needed for breakthrough pain A.m. CBC, BMP, CRP podiatry input appreciated 07/19 consulted vascular for AKA , input appreciated , surgery AKA or BKA next week continue antibiotics, pain control 07/20 plan for BKA vs AKA next week (2) Cellulitis of right lower extremity: Plan: Erythema on the dorsal aspect of the right foot and right lower extremity Leukocytosis at 12.68 on arrival with a neutrophil predominance Antibiotics (as above) AKA vs BKA next week (3) Atrial fibrillation: Plan: S/p ablation in 2017 continue Eliquis for now , hold before surgery (4) Bladder carcinoma: Plan: S/p TURBT x 2 in November 2022 and April 2023 Continue outpatient urologic follow-up (5) Elevated troponin: Plan: demand ischemia due to infection 31.6-->31.2 Continuous telemetry monitoring (6) Chronic respiratory failure with hypoxia: Plan: Chronic respiratory failure with COPD Baseline 3L NC continuous No wheezing or increased oxygen demands to suggest acute COPD exacerbation continue oxygen supplementation (7) CLL (chronic lymphocytic leukemia): (8) Peripheral arterial disease: (9) CAD (coronary artery disease): (10) Diabetic foot ulcer: (11) Left knee pain: Plan: uric acid level is normal, gout not excluded, will try Colchicine , lidoderm patches oxycodone PRN XR left knee Plan Disposition: Admit to [facility] telemetry Full code AHA diet VTE PPx: On Eliquis Admission and Anticipated Discharge Date Admission Date: July 17, 2023 Subjective reports foot pain , no events overnight , left knee pain , no swelling or redness Review of Systems Review of Systems: See HPI above Physical Exam Physical Exam: General: no acute distress; non-toxic appearing; well-nourished; cooperative HEENT: normocephalic, atraumatic; no scleral icterus; PERRLA w/ EOMs intact; moist mucus membrane; vision and hearing grossly intact Neck: supple; no lymphadenopathy; trachea midline Skin: warm, dry without signs of tenting; no cyanosis; no rashes, bruising, lesions, or erythema noted CV: S1/S2 normal; no murmurs/rubs/gallops; pulses intact and symmetric at radial, DP, and PT Lungs: no acute respiratory distress; symmetrical chest wall expansion; clear breath sounds across all lung gomez w/o adventitious sounds; no wheezing ABD: Soft, NTP; BS present; no rebound/guarding; no distention MSK: no tics or fasciculations; no edema noted in the LEs b/l, nonerythematous Right foot: Cold to touch; necrotic first, third, and fourth toes (see photos below); erythema on the dorsal aspect of the right foot, as well as the anterior aspect of the right lower extremity; Neuro: A&Ox3; normal mood and affect; fluent speech; no focal deficits; patient reports intact, symmetric sensation in the LEs bilaterally Results & Data Results & Data Vital Signs (Past 12 Hours) Vital Signs Temp Pulse Pulse Resp BP Pulse Ox O2 Del Method 07/21/23 11:08 36.8 C 100 H 19 124/73 98 Nasal Cannula 07/21/23 08:37 97 H 07/21/23 08:35 36.4 C L 104 H 19 113/72 95 Nasal Cannula 07/21/23 03:59 36.9 C 94 H 16 115/72 94 Room Air O2 Flow Rate 07/21/23 11:08 3 07/21/23 08:37 07/21/23 08:35 3 07/21/23 03:59 PG Care Time/CCT Total # of Minutes Spent Total Time Spent with Patient: Total time spent is greater than 50% in coordination of care (as documented) at patient's floor/unit and/or counseling patient: Coding Level of Care Code 01647 SUB INP/OBS CARE Diagnoses Wound of right foot S91.301A Cellulitis of right lower extremity L03.115 Atrial fibrillation I48.91 Bladder carcinoma C67.9 Elevated troponin R79.89 Chronic respiratory failure with hypoxia J96.11 CLL (chronic lymphocytic leukemia) C91.10 Peripheral arterial disease I73.9 CAD (coronary artery disease) I25.10 Diabetic ulcer of toe of right foot associated with type 2 diabetes mellitus, with other ulcer severity E11.621; L97.518 Diabetes mellitus type: type 2 Diabetic foot ulcer location: toe Laterality: right Non-pressure ulcer stage: with other severity Left knee pain M25.562 (10) Diabetic foot ulcer Diabetes mellitus type: type 2 Diabetic foot ulcer location: toe Laterality: right Non-pressure ulcer stage: with other severity Qualified Code(s): E11.621 - Type 2 diabetes mellitus with foot ulcer; L97.518 - Non-pressure chronic ulcer of other part of right foot with other specified severity
--- NOTE | 2023-07-21 13:33 | XRay Report ---
XR knee LT 1 or 2V routine HISTORY: 73 years-old Male pain acute pain of the left knee without reported trauma COMPARISON: 12/06/2022 TECHNIQUE: 2 views of the left knee FINDINGS: Arterial calcifications. Small to moderate joint effusion. Mild tricompartmental osteoarthritis is mo st pronounced in the medial compartment. No acute fracture, dislocation or osseous erosion. IMPRESSION: 1. Osteoarthritis without acute fracture or dislocation. 2. Small to moderate joint effusion. ACT 112: Negative or not required by law. The above report was generated using voice recognition software. It may contain grammatical, syntax o r spelling errors. Electronically signed by: John Gunderson M.D. 07/21/2023 1:32 PM
[2023-07-21] MEDS: APIXABAN 2.5 MG TAB PO SCH (15:33)
[2023-07-21] MEDS: APIXABAN 5 MG TABLET PO SCH (19:46)
[2023-07-22] MEDS: COLCHICINE 0.6 MG TAB PO SCH (07:51)
[2023-07-22 08:18] LABS: Hematocrit (blood only) 39.3 % (42.0-52.0); Hemoglobin 12.3 g/dl (14.0-18.0); Mean Corpuscular Hemoglobin 31.8 pg (25.0-34.0); Mean Corpuscular Hgb Conc 31.3 g/dL (32.0-36.0); Mean Corpuscular Volume 101.6 fL (80.0-100.0); Mean Platelet Volume 10.8 fL (9.4-12.4); Platelet Count 373 K/uL (130-400); RDW Coefficient of Variation 14.8 % (11.5-14.5); RDW Standard Deviation 54.8 fL (36.4-46.3); Red Blood Count 3.87 M/uL (4.70-6.10); White Blood Count 14.43 K/ul (4.8-10.8)
[2023-07-22 08:32] LABS: BUN Creatinine Ratio 20.1 (10-20); Calcium 9.2 mg/dl (8.6-10.3); Creatinine Clr Calc Pharmacy 37.1 ml/min; Est GFR (African American) 43.8 ml/min; Est GFR (Non-African American) 37.8 ml/min; Potassium 3.9 mmol/L (3.5-5.1)
--- NOTE | 2023-07-22 13:25 | Orthopedic Consultation ---
Date of Service July 22, 2023 Assessment & Plan (1) Osteoarthritis of left knee: He is dealing with some arthritis in his knee. His knee is pretty painful. I would like his knee feeling better before he moves forward with a possible amputation on his right side. We will give him a left knee intra-articular injection tomorrow. Hopefully will calm down some of his symptoms. History of Present Illness Reason for Consultation: Left knee pain. Requesting Physician: . Attending Physician: Dipika Lindsay MD Michael is a pleasant 73-year-old male who was admitted with wound complications of his right foot. He he is scheduled to have a right below-knee amputation later this week. Unfortunate is also been dealing with left knee pain. He says it has been on and off for many years. At times his knee will swell. At times he will have a lot of pain in his knee and other times it will not hurt much at all. Right now his knee is pretty painful. He has a lidocaine patch on it and an Omid wrap. In lieu of his upcoming right leg amputation orthopedics was consulted to help treat his left knee.. Allergies Allergy/AdvReac Type Severity Reaction Status Date / Time enalapril Allergy Severe Angioedema Verified 07/17/23 20:41 brimonidine [From Combigan] Allergy Intermediate Hives Verified 07/17/23 20:41 timolol Allergy Intermediate Hives Verified 07/17/23 20:41 Home Medications Medication Instructions Recorded Confirmed Type aspirin 81 mg tablet,delayed 81 mg PO QAM 11/01/22 07/17/23 History release atorvastatin 40 mg tablet 40 mg PO PM 11/01/22 07/17/23 History budesonide 160 mcg-glycopyr 9 2 inh inhalation BID 11/01/22 07/17/23 History mcg-formot 4.8 mcg/actuation HFA inhaler (Breztri Aerosphere) calcium carbonate 600 mg PO QAM 11/01/22 07/17/23 History carvedilol 3.125 mg tablet 3.125 mg PO BID 11/01/22 07/17/23 History cyanocobalamin (vitamin B-12) 1,000 mcg PO QAM 11/01/22 07/17/23 History 1,000 mcg tablet empagliflozin 10 mg tablet 10 mg PO QAM 11/01/22 07/17/23 History (Jardiance) ferrous sulfate 27 mg iron tablet 27 mg PO QAM 11/01/22 07/17/23 History furosemide 40 mg tablet (Lasix) 40 mg PO BID 11/01/22 07/17/23 History hydralazine 25 mg tablet 25 mg PO TID 11/01/22 07/17/23 History nitroglycerin 0.4 mg sublingual 0.4 mg sublingual UD PRN Chest Pain 11/01/22 07/17/23 History tablet potassium chloride 20 mEq 20 meq PO QAM 11/01/22 07/17/23 History tablet,extended release psyllium husk 3.4 gram/5.4 gram 1 tbsp PO QAM 11/01/22 07/17/23 History oral powder (Metamucil) dimenhydrinate 50 mg tablet 50 mg PO Q8H PRN Nausea 12/14/22 07/17/23 History (Dramamine) apixaban 5 mg tablet (Eliquis) 5 mg PO BID 05/03/23 07/17/23 History acetaminophen 500 mg tablet 1,000 mg PO Q6H PRN Pain 05/09/23 07/17/23 History multivitamin 1 tab PO QAM 07/09/23 07/17/23 History Past Med/Surg History Medical History SOB (shortness of breath) Chronic respiratory failure with hypoxia CAD (coronary artery disease) CABG x 2 07/2016 Angioplasty 1996 Atrial fibrillation On Eliquis s/p ablation 2017 CKD (chronic kidney disease) Valvular heart disease History of cellulitis Right Great toe- completed antibiotics Swelling and erythema significantly improved but still has mild pain (improved from previous) ICD (implantable cardioverter-defibrillator) in place 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 Ortega Dyslipidemia HTN (hypertension) Ischemic cardiomyopathy ICD 09/2021 History of gout CLL (chronic lymphocytic leukemia) known hx x years Diabetes mellitus, type 2 NIDDM Hard of hearing No hearing aids Myocardial Infarction 1996 & 2016 Chronic obstructive pulmonary disease 3L via continuous Bladder carcinoma bcg treatments Surgical History History of bladder surgery TURBT History of anesthesia reaction slow to wake History of bone marrow biopsy Right node Lymph node biopsy (04/23/23)- CLL/SLL, negative for metastatic carcinoma History of colonoscopy H/O wisdom tooth extraction History of tonsillectomy History of adenoidectomy History of cataract surgery bilateral S/P ICD (internal cardiac defibrillator) procedure Implanted 2021>last checked February 2022 ? type S/P ablation of atrial fibrillation S/P angioplasty no stents S/P CABG x 2 2016 Family History Other No family history of adverse response to anesthesia Social History Smoking Status: Former smoker Tobacco Type: Cigarettes Smoking End Date: August 2015; Second Hand Exposure: No; Do You Dip or Chew Tobacco: No; Hx Alcohol Use: Yes Hx Substance Use: No Preferred Language: Persian Communication Ability: Effective Clip On Sunglasses Inspector Required: No Beliefs That Will Affect Care: Spiritual Current Living Situation: Spouse Feels Safe at Home: Yes Assistive Devices: Oxygen - Continuous Review of Systems All systems reviewed & are unremarkable except as noted in HPI & below. Physical Exam On physical examination left knee, there is a 1+ effusion. He is range of motion from 5 to 115 degrees. He has tenderness palpation of the distal femoral condyles.. Constitutional WD/WN, vitals as above Eyes PERRL, conjunctivae normal, anicteric sclerae ENMT external ear and nose normal, oropharynx normal Neck trachea midline, no thyromegaly Respiratory normal respiratory effort Cardiovascular RRR, no murmur, no edema Gastrointestinal (Abdomen) normal bowel sounds, soft, nontender, no hepatosplenomegaly Psychiatric A+Ox3, euthymic affect Results & Data Results & Data Laboratory Results . Diagnostic Findings X-rays of the left knee show mild to moderate osteoarthritis. No standing signs of fracture or any other osseous abnormalities.. PG Care Time/CCT Total # of Minutes Spent Total Time Spent with Patient: Total time spent is greater than 50% in coordination of care (as documented) at patient's floor/unit and/or counseling patient: Coding Level of Care Code 68390 IN/OBS CONSULT LVL 4,60M Diagnoses Osteoarthritis of left knee M17.12
--- NOTE | 2023-07-22 14:20 | Hospitalist Progress Note ---
Date of Service July 22, 2023 Assessment & Plan (1) Wound of right foot: Plan: [place]08 - 07/12 for lower extremity edema and severe PVD; discharged on cefadroxil Returned on 07/16 for worsening of right foot wound/cellulitis; ulcers and necrosis of the first and third digits R Foot XR ordered, pending Patient started on vancomycin and Zosyn in the ED Zosyn --> cefepime q8h given kidney function Continue Vancomycin q12h Daily wound care Wound care nurse consulted Per review of vascular consult note on 07/12, only option for revascularization would be an open surgical bypass Patient is not a good candidate for this given reduced EF, bladder cancer, and CLL AYANA 0.19 Podiatry consulted (Dr. Thomason will see patient on 07/17) Patient will likely require surgery; planning on either or Sunday hold Eliquis for now and give diet Acetaminophen as needed for pain 1-3 Dilaudid IV q4h as needed for breakthrough pain A.m. CBC, BMP, CRP podiatry input appreciated 07/19 consulted vascular for AKA , input appreciated , surgery AKA or BKA next week continue antibiotics, pain control 07/20 plan for BKA vs AKA next week 07/21 right BKA vs AKA on (2) Cellulitis of right lower extremity: Plan: Erythema on the dorsal aspect of the right foot and right lower extremity Leukocytosis at 12.68 on arrival with a neutrophil predominance Antibiotics (as above) AKA vs BKA next week (3) Atrial fibrillation: Plan: S/p ablation in 2017 continue Eliquis for now , hold before surgery (4) Bladder carcinoma: Plan: S/p TURBT x 2 in November 2022 and April 2023 Continue outpatient urologic follow-up (5) Elevated troponin: Plan: demand ischemia due to infection 31.6-->31.2 Continuous telemetry monitoring (6) Chronic respiratory failure with hypoxia: Plan: Chronic respiratory failure with COPD Baseline 3L NC continuous No wheezing or increased oxygen demands to suggest acute COPD exacerbation continue oxygen supplementation (7) CLL (chronic lymphocytic leukemia): (8) Peripheral arterial disease: Plan: BKA on (9) CAD (coronary artery disease): Plan: EF 25-30 %, s/p ICD at [facility] , needs cardiac eval before surgery (10) Diabetic foot ulcer: (11) Left knee pain: Plan: uric acid level is normal, gout not excluded, will try Colchicine , lidoderm patches oxycodone PRN XR left knee , effusion, OA orto consulted, injection tomorrow (12) Nephrostomy status: Plan: placed almost a month ago, does not have follow up plan , change before discharge ? (13) CKD (chronic kidney disease) stage 3, GFR 30-59 ml/min: Plan: stable bun/cr, nephrostomy in place Plan Disposition: Admit to [facility] telemetry Full code AHA diet VTE PPx: On Eliquis Admission and Anticipated Discharge Date Admission Date: July 17, 2023 Subjective reports right foot pain , left knee pain and swelling, difficulties walking Review of Systems Review of Systems: See HPI above Physical Exam Physical Exam: General: no acute distress; non-toxic appearing; well-nourished; cooperative HEENT: normocephalic, atraumatic; no scleral icterus; PERRLA w/ EOMs intact; moist mucus membrane; vision and hearing grossly intact Neck: supple; no lymphadenopathy; trachea midline Skin: warm, dry without signs of tenting; no cyanosis; no rashes, bruising, lesions, or erythema noted CV: S1/S2 normal; no murmurs/rubs/gallops; pulses intact and symmetric at radial, DP, and PT Lungs: no acute respiratory distress; symmetrical chest wall expansion; clear breath sounds across all lung gomez w/o adventitious sounds; no wheezing ABD: Soft, NTP; BS present; no rebound/guarding; no distention MSK: no tics or fasciculations; no edema noted in the LEs b/l, nonerythematous Right foot: Cold to touch; necrotic first, third, and fourth toes (see photos below); erythema on the dorsal aspect of the right foot, as well as the anterior aspect of the right lower extremity; Neuro: A&Ox3; normal mood and affect; fluent speech; no focal deficits; patient reports intact, symmetric sensation in the LEs bilaterally Results & Data Results & Data Vital Signs (Past 12 Hours) Vital Signs Temp Pulse Resp BP Pulse Ox O2 Del Method O2 Flow Rate 07/22/23 11:46 36.4 C L 95 H 20 118/77 94 Nasal Cannula 2 07/22/23 09:00 Nasal Cannula 2 07/22/23 07:00 36.4 C L 92 H 20 115/76 91 Room Air 07/22/23 03:47 36.6 C 94 H 18 116/75 93 Nasal Cannula 3 PG Care Time/CCT Total # of Minutes Spent Total Time Spent with Patient: Total time spent is greater than 50% in coordination of care (as documented) at patient's floor/unit and/or counseling patient: Coding Level of Care Code 03482 SUB INP/OBS CARE MIN Diagnoses Wound of right foot S91.301A Cellulitis of right lower extremity L03.115 Atrial fibrillation I48.91 Bladder carcinoma C67.9 Elevated troponin R79.89 Chronic respiratory failure with hypoxia J96.11 CLL (chronic lymphocytic leukemia) C91.10 Peripheral arterial disease I73.9 CAD (coronary artery disease) I25.10 Diabetic ulcer of toe of right foot associated with type 2 diabetes mellitus, with other ulcer severity E11.621; L97.518 Diabetes mellitus type: type 2 Diabetic foot ulcer location: toe Laterality: right Non-pressure ulcer stage: with other severity Left knee pain M25.562 Nephrostomy status Z93.6 CKD (chronic kidney disease) stage 3, GFR 30-59 ml/min N18.30 (10) Diabetic foot ulcer Diabetes mellitus type: type 2 Diabetic foot ulcer location: toe Laterality: right Non-pressure ulcer stage: with other severity Qualified Code(s): E11.621 - Type 2 diabetes mellitus with foot ulcer; L97.518 - Non-pressure chronic ulcer of other part of right foot with other specified severity
--- NOTE | 2023-07-22 16:30 | Cardiology Consultation ---
Date of Consultation July 22, 2023 Assessment & Plan (1) Atrial fibrillation: (2) CAD (coronary artery disease): (3) Valvular heart disease: (4) ICD (implantable cardioverter-defibrillator) in place: (5) Ischemic cardiomyopathy: Plan 1. Coronary disease: He has an extensive history of coronary disease requiring both percutaneous and surgical revascularization. Bypass performed in 2017 [facility]. The appears that he has been maintained on a medical regimen for secondary prevention consisting of aspirin and high-dose atorvastatin. No current symptoms suggestive of coronary insufficiency or angina although he is notably sedentary. 2. Ischemic cardiomyopathy: He seems well compensated. Lung examination is benign and he does not have orthopnea. Some lower extremity swelling involving the right foot due to infection but none on the left. He does not appear to be hypervolemic. His outpatient medical regimen consists of low-dose carvedilol, daily diuretic and Jardiance. It seems that other agents have been deferred due to renal dysfunction. 3. Valvular heart disease: He has significant mitral regurgitation by report. Mild aortic insufficiency. Not a candidate for intervention given his degree of LV dysfunction. Not overtly symptomatic. 4. Atrial fibrillation: Permanent. No overt symptoms. Rate control appears to be adequate if not optimal. He can continue on his current dose of carvedilol. Based on his blood pressure there may be an option for increasing the dose during this hospitalization. 5. Implantable defibrillator: Dual-chamber [employer] device. Implanted 2021. Currently programmed VVI 50. No reported therapies. 6. History of focal atrial tachycardia status post catheter based treatment 11/23/2017. Now in permanent atrial fibrillation. Preoperative: While he does not exhibit symptoms of decompensated heart failure, severe valvular heart disease or acute ischemia, his prior history puts him at high risk for cardiac complications. The revised cardiac risk index suggests a 5.4% chance of , myocardial infarction or cardiac arrest. The rate of developing these factors plus acute congestive heart failure approaches 10%. I do not believe any further risk stratification will likely alter his required management. Efforts in the perioperative period should focus on reducing risk, this would involve limiting blood loss, anemia, hypotension, significant hypertension, hypoxia and tachycardia. Particular attention should be paid to avoiding hypovolemia given his notably reduced LV systolic function. Carvedilol should be continued in the perioperative. History of Present Illness Reason for Consultation: Preoperative cardiovascular evaluation Requesting Physician: Neftali Attending Physician: Dipika Lindsay MD History of Present Illness The patient is a 73-year-old gentleman with a history of coronary disease status post both percutaneous and surgical revascularization, associated ischemic cardiomyopathy, congestive heart failure and permanent atrial fibrillation will also suffers from peripheral vascular disease. The patient began to notice some discomfort and ulcers involving the right foot after experiencing some element of right foot edema and a change in footwear. This seemed to progress to the point where it is now felt to require surgical revascularization versus amputation. Conservative measures such as antibiotics failed to improve was believed to be a diabetic foot ulcer. The patient's activity and ambulation has been severely limited over the past few weeks as result of his foot pain and ulceration. However, several months ago he was active around his house. He is only able to do mild activity before becoming short of breath. If he walks outdoors he uses a walker and has to rest periodically due to dyspnea. He did not endorse symptoms of exertional chest pain. He denies dizziness or lightheadedness. With regard to his atrial fibrillation he states that he occasionally notices some palpitations but generally speaking is not aware of the arrhythmia. He denies orthopnea. Outside of the right foot swelling he has not noticed similar problems on the left. He reports never having received therapy from his defibrillator. Allergies Allergy/AdvReac Type Severity Reaction Status Date / Time enalapril Allergy Severe Angioedema Verified 07/17/23 20:41 brimonidine [From Combigan] Allergy Intermediate Hives Verified 07/17/23 20:41 timolol Allergy Intermediate Hives Verified 07/17/23 20:41 Home Medications Medication Instructions Recorded Confirmed Type aspirin 81 mg tablet,delayed 81 mg PO QAM 11/01/22 07/17/23 History release atorvastatin 40 mg tablet 40 mg PO PM 11/01/22 07/17/23 History budesonide 160 mcg-glycopyr 9 2 inh inhalation BID 11/01/22 07/17/23 History mcg-formot 4.8 mcg/actuation HFA inhaler (Breztri Aerosphere) calcium carbonate 600 mg PO QAM 11/01/22 07/17/23 History carvedilol 3.125 mg tablet 3.125 mg PO BID 11/01/22 07/17/23 History cyanocobalamin (vitamin B-12) 1,000 mcg PO QAM 11/01/22 07/17/23 History 1,000 mcg tablet empagliflozin 10 mg tablet 10 mg PO QAM 11/01/22 07/17/23 History (Jardiance) ferrous sulfate 27 mg iron tablet 27 mg PO QAM 11/01/22 07/17/23 History furosemide 40 mg tablet (Lasix) 40 mg PO BID 11/01/22 07/17/23 History hydralazine 25 mg tablet 25 mg PO TID 11/01/22 07/17/23 History nitroglycerin 0.4 mg sublingual 0.4 mg sublingual UD PRN Chest Pain 11/01/22 07/17/23 History tablet potassium chloride 20 mEq 20 meq PO QAM 11/01/22 07/17/23 History tablet,extended release psyllium husk 3.4 gram/5.4 gram 1 tbsp PO QAM 11/01/22 07/17/23 History oral powder (Metamucil) dimenhydrinate 50 mg tablet 50 mg PO Q8H PRN Nausea 12/14/22 07/17/23 History (Dramamine) apixaban 5 mg tablet (Eliquis) 5 mg PO BID 05/03/23 07/17/23 History acetaminophen 500 mg tablet 1,000 mg PO Q6H PRN Pain 05/09/23 07/17/23 History multivitamin 1 tab PO QAM 07/09/23 07/17/23 History Patient History Medical History (Updated 07/22/23 @ 16:23 by Tyrese Mcqueen MD) SOB (shortness of breath) Chronic respiratory failure with hypoxia CAD (coronary artery disease) CABG x 2 07/2016 Angioplasty 1996 Atrial fibrillation On Eliquis s/p ablation 2017 CKD (chronic kidney disease) Valvular heart disease History of cellulitis Right Great toe- completed antibiotics Swelling and erythema significantly improved but still has mild pain (improved from previous) ICD (implantable cardioverter-defibrillator) in place 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 card cutter, Implant date 10/05/2021 CHF (congestive heart failure) followed by Dr. Ortega Dyslipidemia HTN (hypertension) Ischemic cardiomyopathy ICD 09/2021 History of gout CLL (chronic lymphocytic leukemia) known hx x years Diabetes mellitus, type 2 NIDDM Hard of hearing No hearing aids Myocardial Infarction 1996 & 2016 Chronic obstructive pulmonary disease 3L via continuous Bladder carcinoma bcg treatments Surgical History (Updated 07/22/23 @ 14:33 by Dipika Lindsay MD) History of bladder surgery TURBT History of anesthesia reaction slow to wake History of bone marrow biopsy Right node Lymph node biopsy (04/23/23)- CLL/SLL, negative for metastatic carcinoma History of colonoscopy H/O wisdom tooth extraction History of tonsillectomy History of adenoidectomy History of cataract surgery bilateral S/P ICD (internal cardiac defibrillator) procedure Implanted 2021>last checked February 2022 ? type S/P ablation of atrial fibrillation S/P angioplasty no stents S/P CABG x 2 2016 Family History Other No family history of adverse response to anesthesia Social History Smoking Status: Former smoker Tobacco Type: Cigarettes Smoking End Date: August 2015; Second Hand Exposure: No; Do You Dip or Chew Tobacco: No; Hx Alcohol Use: Yes Hx Substance Use: No Preferred Language: Montserratian Communication Ability: Effective Fire Operations Forester Required: No Beliefs That Will Affect Care: Spiritual Current Living Situation: Spouse Feels Safe at Home: Yes Assistive Devices: Oxygen - Continuous Review of Systems Review of Systems: Per HPI. Pain in the right foot. Poor appetite. Physical Exam Physical Exam: The patient is alert and oriented. Mood and affect appeared normal. He answered all questions appropriately. HEENT: Pupils are equal and reactive to light and accommodation. Extraocular movements are intact. The sclerae are anicteric. Neuro: Cranial nerves intact Lungs: Clear to auscultation bilaterally. He has good air movement without use of accessory muscles. No rales wheezes or rhonchi. Cardiac: Heart demonstrates an irregular rhythm. Normal rate.. Normal S1 and S2. No murmurs on examination. Pulses: The patient has palpable radial pulses bilaterally that are equal in intensity Extremities: Right and left foot were bandaged. No edema in the left ankle. Skin: I did not appreciate any rashes on examination today. Some ecchymosis. Results & Data Vital Signs (Past 12 Hours) Vital Signs Temp Pulse Pulse Resp BP Pulse Ox O2 Del Method 07/22/23 15:50 36.6 C 95 H 20 147/88 H 95 Nasal Cannula 07/22/23 15:05 118 H 07/22/23 11:46 36.4 C L 95 H 20 118/77 94 Nasal Cannula 07/22/23 09:00 Nasal Cannula 07/22/23 07:00 36.4 C L 92 H 20 115/76 91 Room Air O2 Flow Rate 07/22/23 15:50 2 07/22/23 15:05 07/22/23 11:46 2 07/22/23 09:00 2 07/22/23 07:00 Laboratory Results Abnormal Lab Results 07/21/23 07/21/23 07/22/23 17:08 20:18 07:46 WBC 14.43 H RBC 3.87 L Hgb 12.3 L Hct 39.3 L MCV 101.6 H MCH 31.8 MCHC 31.3 L RDW Std Deviation 54.8 H RDW Coeff of Sharmaine 14.8 H Plt Count 373 MPV 10.8 Sodium 138 Potassium 3.9 Chloride 104 Carbon Dioxide 26 Anion Gap 8 BUN 35 H Creatinine 1.74 H Est Cr Clr Drug Dosing 37.1 Est GFR ( Amer) 43.8 Est GFR (Non-Af Amer) 37.8 BUN/Creatinine Ratio 20.1 H Glucose 105 H POC Glucose 96 190 H Calcium 9.2 07/22/23 07/22/23 08:21 12:02 WBC RBC Hgb Hct MCV MCH MCHC RDW Std Deviation RDW Coeff of Sharmaine Plt Count MPV Sodium Potassium Chloride Carbon Dioxide Anion Gap BUN Creatinine Est Cr Clr Drug Dosing Est GFR ( Amer) Est GFR (Non-Af Amer) BUN/Creatinine Ratio Glucose POC Glucose 89 137 H Calcium Diagnostic Findings Echocardiogram 10/25/2022: Severely reduced LV systolic function with ejection fraction 25-30%. Severe global hypokinesis with akinesis of the basal segment. Mild aortic regurgitation. Severe mitral regurgitation. Moderate to severe tricuspid regurgitation. Moderate pulmonary hypertension with estimated right ventricular systolic pressure of 50 mm of mercury I performed a complete device interrogation of his [employer] dual chamber ICD. 6.2 years longevity. Not device dependent. 100% atrial fibrillation for the duration of monitoring rate control appears adequate if suboptimal. No treated episodes of arrhythmia. Multiple reports of nonsustained VT of few seconds duration. EGMs not available for review. ECG Additional Comments: Atrial fibrillation with controlled ventricular rate. Poor R-wave progression in the precordial leads. Occasional aberrancy versus PVCs. PG Care Time/CCT Total # of Minutes Spent Total Time Spent with Patient: Total time spent is greater than 50% in coordination of care (as documented) at patient's floor/unit and/or counseling patient: Coding Level of Care Code 04993 INT INP/OBS CARE 3/75MIN Diagnoses Atrial fibrillation I48.91 CAD (coronary artery disease) I25.10 Valvular heart disease I38 ICD (implantable cardioverter-defibrillator) in place Z95.810 Ischemic cardiomyopathy I25.5
[2023-07-23 06:58] LABS: Hematocrit (blood only) 35.8 % (42.0-52.0); Hemoglobin 11.4 g/dl (14.0-18.0); Mean Corpuscular Hemoglobin 32.4 pg (25.0-34.0); Mean Corpuscular Hgb Conc 31.8 g/dL (32.0-36.0); Mean Corpuscular Volume 101.7 fL (80.0-100.0); Mean Platelet Volume 10.8 fL (9.4-12.4); Platelet Count 321 K/uL (130-400); RDW Coefficient of Variation 14.6 % (11.5-14.5); RDW Standard Deviation 54.2 fL (36.4-46.3); Red Blood Count 3.52 M/uL (4.70-6.10); White Blood Count 11.42 K/ul (4.8-10.8)
[2023-07-23] MEDS ORDERED: VANCOMYCIN LEVEL ONE (07:00)
[2023-07-23 07:16] LABS: BUN Creatinine Ratio 19.1 (10-20); Calcium 8.9 mg/dl (8.6-10.3); Creatinine Clr Calc Pharmacy 34.3 ml/min; Est GFR (African American) 39.9 ml/min; Est GFR (Non-African American) 34.4 ml/min; Potassium 3.6 mmol/L (3.5-5.1)
--- NOTE | 2023-07-23 11:15 | Orthopedic Progress Note ---
Date of Service July 23, 2023 Assessment & Plan (1) Osteoarthritis of left knee: I had a discussion today with the patient about his left knee pathology with ample amount of time for patient to ask any questions or state and concerns. All question concerns were answered to the patient satisfaction. He discussed yesterday with Dr. Tomlin that that he would like a steroid injection to the left knee. I did ask again today if he would like to proceed with intra- articular steroid injection to the left knee. He wishes to proceed with the injection. I also discussed that I would aspirate his knee as well to try to get some fluid off for crystal analysis, Lyme, uric acid, and cell count. I discussed a left knee intra-articular aspiration with steroid injection in great detail with ample amount time for patient ask any questions stating concerns. All question concerns were answered the patient satisfaction. He wishes to proceed. Verbal consent was obtained and witnessed by myself and nursing staff. Please see procedure below. He may follow-up once discharged with [facility] if he wishes. He can follow-up as needed. Please reach out by [place] text or to [facility] if patient's situation is to change. Procedure: Intra-Articular Joint Aspiration and Injection Location: Left knee Ultrasound guidance: No Verbal informed consent obtained: Yes Cleaned with: Betadine and alcohol swab Anesthesia: None Needle: 18gauge 3.5 Volume aspirated: 10cc yellow transparent synovial fluid Injectate: 2cc Kenalog 40mg/ml + 5cc bupivacaine 0.5% Hemostasis obtained. Bandage applied. Patient tolerated procedure well. Post- procedural care instructions provided. Subjective . Michael was seen in this morning resting comfortably in no apparent distress. He does note that his left knee is still painful to the touch and to range of motion. He would like to proceed with the steroid injection as discussed yesterday with Dr. Tomlin. He denies any other concerns today. Review of Systems All systems reviewed & are unremarkable except as noted in HPI & below. Physical Exam . On physical examination of left knee, there is 1+ trace effusion throughout the knee. He has gingerly but fluid range of motion from 5 to about 110 degrees of flexion. He has tenderness diffusely throughout the knee joint. Calf soft no ntender to palpation. +2 DP and PT pulses. Less than 2-second capillary refill. Normal sensation. Neurovascular intact. Results & Data Results & Data Laboratory Results . Diagnostic Findings . PG Care Time/CCT Total # of Minutes Spent Total Time Spent with Patient: Total time spent is greater than 50% in coordination of care (as documented) at patient's floor/unit and/or counseling patient: Coding Level of Care Code 92318 SUB INP/OBS CARE 235MIN Diagnoses Osteoarthritis of left knee M17.12
[2023-07-23 12:02] LABS: Appearance Synovial Fluid Cloudy; Color Synovial Fluid Yellow; Mononuclear WBC Synovial 6.8 %; Polynuclear WBC Synovial 93.2 %; RBC Synovial Fluid Auto 3000 /uL; Source Synovial Fluid Left Knee; WBC Synovial Fluid Auto 8658 /ul (0-200)
[2023-07-23] MEDS: BUPIVACAINE/EPINEPHRINE 0.25% 1:200,000 30 ML VIAL INFIL ONE (12:13)
[2023-07-23] MEDS: TRIAMCINOLONE ACET 40 MG/ML VIAL IA ONE (12:13)
--- NOTE | 2023-07-23 15:00 | Hospitalist Progress Note ---
Date of Service July 23, 2023 Assessment & Plan (1) Wound of right foot: Plan: Recent [place] admission from 07/08 - 07/12 for lower extremity edema and severe PVD; discharged on cefadroxil Returned on 07/16 for worsening of right foot wound/cellulitis; ulcers and necrosis of the first and third digits On vancomycin and cefepime. Continue local wound care Per review of vascular consult note on 07/12, only option for revascularization would be an open surgical bypass Patient is not a good candidate for this given reduced EF, bladder cancer, and CLL AYANA 0.19 Podiatry consulted (Dr. Thomason will see patient on 07/17) Patient will likely require surgery; planning on either or Sunday Acetaminophen as needed for pain 1-3 Dilaudid IV q4h as needed for breakthrough pain A.m. CBC, BMP, CRP podiatry input appreciated vascular surgery input appreciated. BKA versus AKA later this week (vascular requests holding eliquis 48hrs before surgery - will hold after PM dose tonight in anticipation of OR) (2) Cellulitis of right lower extremity: Plan: unlikely to heal without good blood flow. abx at least until surgery. (3) Atrial fibrillation: Plan: S/p ablation in 2018 continue Eliquis for now, hold before surgery (starting AM 07/23) (4) Bladder carcinoma: Plan: S/p TURBT x 2 in November 2022 and April 2023 Continue outpatient urologic follow-up (5) Elevated troponin: Plan: demand ischemia due to infection 31.6-->31.2 no symptoms noted today (6) Chronic respiratory failure with hypoxia: Plan: Chronic respiratory failure with COPD Baseline 3L NC continuous no acute symptoms today continue oxygen supplementation (7) CLL (chronic lymphocytic leukemia): (8) Peripheral arterial disease: Plan: BKA on (9) CAD (coronary artery disease): Plan: EF 25-30 %, s/p ICD at [place], clinically asymptomatic at this time (10) Diabetic foot ulcer: (11) Left knee pain: Plan: ortho input appreciated (12) Nephrostomy status: Plan: placed almost a month ago, does not have follow up plan , change before discharge ? (13) CKD (chronic kidney disease) stage 3, GFR 30-59 ml/min: Plan: stable bun/cr, nephrostomy in place Plan Disposition:stable on telemetry; amputation ; will need ongoing post op care after, highly likely will need SNF or rehab [place] Full code AHA diet VTE PPx: On Eliquis (holding starting tomorrow) Admission and Anticipated Discharge Date Admission Date: July 17, 2023 Subjective Overall feeling okay. Had knee injection by orthopedics earlier. For amputation later this week. He expresses good understanding of the plan Review of Systems Review of Systems: All systems reviewed & are unremarkable except as noted in HPI & below Physical Exam Physical Exam: In general he is awake and alert pleasant no distress. HEENT normocephalic atraumatic mucous membranes moist. Breathing unlabored no accessory muscle use good effort. Skin shows no rashes no pallor or icterus. No tracking erythema on right leg. Neuro without focal deficits. Results & Data Results & Data Vital Signs (Past 12 Hours) Vital Signs Temp Pulse Resp BP Pulse Ox O2 Del Method O2 Flow Rate 07/23/23 11:45 97.5 F L 75 16 108/75 94 Nasal Cannula 3 07/23/23 10:42 Nasal Cannula 07/23/23 07:22 97.7 F 77 16 141/74 H 96 Nasal Cannula 3 07/23/23 03:54 97.7 F 62 18 119/66 94 Room Air PG Care Time/CCT Total # of Minutes Spent Total Time Spent with Patient: Total time spent is greater than 50% in coordination of care (as documented) at patient's floor/unit and/or counseling patient: Coding Level of Care Code 85767 SUB INP/OBS CARE 3/50MIN Diagnoses Wound of right foot S91.301A Cellulitis of right lower extremity L03.115 Atrial fibrillation I48.91 Bladder carcinoma C67.9 Elevated troponin R79.89 Chronic respiratory failure with hypoxia J96.11 CLL (chronic lymphocytic leukemia) C91.10 Peripheral arterial disease I73.9 CAD (coronary artery disease) I25.10 Diabetic ulcer of toe of right foot associated with type 2 diabetes mellitus, with other ulcer severity E11.621; L97.518 Diabetes mellitus type: type 2 Diabetic foot ulcer location: toe Laterality: right Non-pressure ulcer stage: with other severity Left knee pain M25.562 Nephrostomy status Z93.6 CKD (chronic kidney disease) stage 3, GFR 30-59 ml/min N18.30 (10) Diabetic foot ulcer Diabetes mellitus type: type 2 Diabetic foot ulcer location: toe Laterality: right Non-pressure ulcer stage: with other severity Qualified Code(s): E11.621 - Type 2 diabetes mellitus with foot ulcer; L97.518 - Non-pressure chronic ulcer of other part of right foot with other specified severity
[2023-07-24 06:53] LABS: Hematocrit (blood only) 35.5 % (42.0-52.0); Hemoglobin 11.6 g/dl (14.0-18.0); Mean Corpuscular Hemoglobin 32.3 pg (25.0-34.0); Mean Corpuscular Hgb Conc 32.7 g/dL (32.0-36.0); Mean Corpuscular Volume 98.9 fL (80.0-100.0); Mean Platelet Volume 10.6 fL (9.4-12.4); Platelet Count 376 K/uL (130-400); RDW Coefficient of Variation 14.5 % (11.5-14.5); RDW Standard Deviation 52.4 fL (36.4-46.3); Red Blood Count 3.59 M/uL (4.70-6.10); White Blood Count 14.73 K/ul (4.8-10.8)
[2023-07-24 07:16] LABS: BUN Creatinine Ratio 22.5 (10-20); Calcium 9.3 mg/dl (8.6-10.3); Creatinine Clr Calc Pharmacy 40.3 ml/min; Est GFR (African American) 48.5 ml/min; Est GFR (Non-African American) 41.8 ml/min; Potassium 3.9 mmol/L (3.5-5.1)
--- NOTE | 2023-07-24 14:29 | Hospitalist Progress Note ---
Date of Service July 24, 2023 Assessment & Plan (1) Wound of right foot: Plan: Patient has a history of severe peripheral vascular disease Recently discharged from the hospital first week of July with on the second week on account of right lower extremity cellulitis, ulcer and necrosis of the first and third digits. Placed on vancomycin and cefepime and evaluated by vascular surgery. They offered the only option for revascularization would be an open surgical by pass and said patient not a good surgical candidate given his reduced ejection fraction, history of CLL and bladder cancer. History also evaluated and plan is for either [id number] or below the knee amputation, this is scheduled for the Will continue wound care Continue to hold Eliquis (2) Cellulitis of right lower extremity: Plan: unlikely to heal without good blood flow. abx at least until surgery. (3) Atrial fibrillation: Plan: S/p ablation in 2017 continue Eliquis for now, hold before surgery (starting AM 07/23) (4) Bladder carcinoma: Plan: S/p TURBT x 2 in November 2022 and April 2023 Continue outpatient urologic follow-up (5) Elevated troponin: Plan: demand ischemia due to infection 31.6-->31.2 no symptoms noted today (6) Chronic respiratory failure with hypoxia: Plan: Chronic respiratory failure with COPD Baseline 3L NC continuous no acute symptoms today continue oxygen supplementation (7) CLL (chronic lymphocytic leukemia): (8) Peripheral arterial disease: Plan: BKA on (9) CAD (coronary artery disease): Plan: EF 25-30 %, s/p ICD at [place], clinically asymptomatic at this time (10) Diabetic foot ulcer: (11) Left knee pain: Plan: Status post knee injection (12) Nephrostomy status: Plan: placed almost a month ago, does not have follow up plan , change before discharge ? (13) CKD (chronic kidney disease) stage 3, GFR 30-59 ml/min: Plan: stable bun/cr, nephrostomy in place Plan Disposition:stable on telemetry; amputation ; will need ongoing post op care after, highly likely will need SNF or rehab at [place] Full code AHA diet VTE PPx: On Eliquis (holding starting tomorrow) Admission and Anticipated Discharge Date Admission Date: July 17, 2023 Subjective Patient seen and examined, wound care was in process, patient anticipates surgery on and is getting ready for that. Review of Systems Review of Systems: All systems reviewed are negative, apart from the ones contained in the history. Physical Exam Physical Exam: The patient is awake, alert and oriented 3, well developed and well nourished, normocephalic and atraumatic, lying in bed and in no acute distress. HEENT--PERRL, EOMI, mucous membranes and oropharynx mildly dry Neck--supple. No JVD. No bruits. Thyroid normal, trachea midline, no adenopathy. Heart--normal S1 and S2. No murmurs, rubs or gallops. Lungs--clear bilaterally, no respiratory distress, no accessory muscle use. Abdomen--normal bowel sounds and soft. Extremities--right lower extremity wound ulcer Dermatologic--normal skin turgor, normal color, no abnormal lymph nodes, no rash. Neurologic--cranial nerves II through XII grossly intact. Rheumatologic--normal range of motion. Psychiatric--normal affect. Results & Data Results & Data Vital Signs (Past 12 Hours) Vital Signs Temp Pulse Pulse Resp BP Pulse Ox O2 Del Method 07/24/23 11:52 97.2 F L 82 18 120/63 96 Nasal Cannula 07/24/23 07:55 Nasal Cannula 07/24/23 07:45 97.3 F L 91 H 16 146/89 H 97 Nasal Cannula 07/24/23 07:00 79 07/24/23 03:24 97.9 F 93 H 16 147/77 H 93 Nasal Cannula O2 Flow Rate 07/24/23 11:52 3 07/24/23 07:55 3 07/24/23 07:45 3 07/24/23 07:00 07/24/23 03:24 3 PG Care Time/CCT Total # of Minutes Spent Total Time Spent with Patient: Total time spent is greater than 50% in coordination of care (as documented) at patient's floor/unit and/or counseling patient: Coding Level of Care Code 42004 SUB INP/OBS CARE 2/35MIN Diagnoses Wound of right foot S91.301A Cellulitis of right lower extremity L03.115 Atrial fibrillation I48.91 Bladder carcinoma C67.9 Elevated troponin R79.89 Chronic respiratory failure with hypoxia J96.11 CLL (chronic lymphocytic leukemia) C91.10 Peripheral arterial disease I73.9 CAD (coronary artery disease) I25.10 Diabetic ulcer of toe of right foot associated with type 2 diabetes mellitus, with other ulcer severity E11.621; L97.518 Diabetes mellitus type: type 2 Diabetic foot ulcer location: toe Laterality: right Non-pressure ulcer stage: with other severity Left knee pain M25.562 Nephrostomy status Z93.6 CKD (chronic kidney disease) stage 3, GFR 30-59 ml/min N18.30 Time Spent (min) 35 (10) Diabetic foot ulcer Diabetes mellitus type: type 2 Diabetic foot ulcer location: toe Laterality: right Non-pressure ulcer stage: with other severity Qualified Code(s): E11.621 - Type 2 diabetes mellitus with foot ulcer; L97.518 - Non-pressure chronic ulcer of other part of right foot with other specified severity
[2023-07-25 07:20] LABS: BUN Creatinine Ratio 22.9 (10-20); Calcium 9.4 mg/dl (8.6-10.3); Creatinine Clr Calc Pharmacy 37.5 ml/min; Est GFR (Non-African American) 38.9 ml/min; Potassium 4.1 mmol/L (3.5-5.1)
[2023-07-25 07:38] LABS: Hematocrit (blood only) 36.6 % (42.0-52.0); Mean Corpuscular Hemoglobin 32.4 pg (25.0-34.0); Mean Corpuscular Hgb Conc 32.8 g/dL (32.0-36.0); Mean Corpuscular Volume 98.9 fL (80.0-100.0); Mean Platelet Volume 10.8 fL (9.4-12.4); Platelet Count 401 K/uL (130-400); RDW Coefficient of Variation 14.6 % (11.5-14.5); White Blood Count 16.47 K/ul (4.8-10.8)
[2023-07-25] MEDS: HYDROmorphone INJ 1 MG/ML SYRINGE IV PRN (11:10)
--- NOTE | 2023-07-25 12:19 | Hospitalist Progress Note ---
Date of Service July 25, 2023 Assessment & Plan (1) Wound of right foot: Plan: Patient has a history of severe peripheral vascular disease Recently discharged from the hospital first week of July with on the second week on account of right lower extremity cellulitis, ulcer and necrosis of the first and third digits. Placed on vancomycin and cefepime and evaluated by vascular surgery. They offered the only option for revascularization would be an open surgical by pass and said patient not a good surgical candidate given his reduced ejection fraction, history of CLL and bladder cancer. History also evaluated and plan is for either [id number] or below the knee amputation, this is scheduled for the Will continue wound care Continue to hold Eliquis (2) Cellulitis of right lower extremity: Plan: unlikely to heal without good blood flow. abx at least until surgery. WBC has been trending up, although a component could be due to his known CLL Continue antibiotics for now. (3) Atrial fibrillation: Plan: S/p ablation in 2017 Eliquis on hold for surgery (4) Bladder carcinoma: Plan: S/p TURBT x 2 in November 2022 and April 2023 Continue outpatient urologic follow-up (5) Elevated troponin: Plan: demand ischemia due to infection 31.6-->31.2 (6) Chronic respiratory failure with hypoxia: Plan: Chronic respiratory failure with COPD Baseline 3L NC continuous no acute symptoms today continue oxygen supplementation (7) Nephrostomy status: Plan: placed almost a month ago, does not have follow up plan Outpatient follow-up with urology (8) CKD (chronic kidney disease) stage 3, GFR 30-59 ml/min: Plan: stable bun/cr, nephrostomy in place (9) Left knee pain: Plan: Status post knee injection (10) CAD (coronary artery disease): Plan: EF 25-30 %, s/p ICD at [facility], clinically asymptomatic at this time (11) Peripheral arterial disease: Plan: BKA on (12) CLL (chronic lymphocytic leukemia): (13) Diabetic foot ulcer: Plan Disposition:stable on telemetry; amputation ; will need ongoing post op care after, highly likely will need SNF or rehab [place] Full code AHA diet VTE PPx: On Eliquis (holding starting tomorrow) Admission and Anticipated Discharge Date Admission Date: July 17, 2023 Subjective Patient seen and examined, patient anticipates surgery on and is getting ready for that. No new complaints today, tolerating diet Review of Systems Review of Systems: All systems reviewed are negative, apart from the ones contained in the history. Physical Exam Physical Exam: The patient is awake, alert and oriented 3, well developed and well nourished, normocephalic and atraumatic, lying in bed and in no acute distress. HEENT--PERRL, EOMI, mucous membranes and oropharynx mildly dry Neck--supple. No JVD. No bruits. Thyroid normal, trachea midline, no adeno lucius. Heart--normal S1 and S2. No murmurs, rubs or gallops. Lungs--clear bilaterally, no respiratory distress, no accessory muscle use. Abdomen--normal bowel sounds and soft. Extremities--right lower extremity wound ulcer Dermatologic--normal skin turgor, normal color, no abnormal lymph nodes, no rash. Neurologic--cranial nerves II through XII grossly intact. Rheumatologic--normal range of motion. Psychiatric--normal affect. Results & Data Results & Data Vital Signs (Past 12 Hours) Vital Signs Temp Pulse Pulse Resp BP Pulse Ox O2 Del Method 07/25/23 11:30 85 14 134/67 94 Nasal Cannula 07/25/23 07:42 97.7 F 81 13 129/68 96 Room Air 07/25/23 07:00 84 07/25/23 03:26 97.3 F L 76 20 171/78 H 97 Nasal Cannula O2 Flow Rate 07/25/23 11:30 3 07/25/23 07:42 07/25/23 07:00 07/25/23 03:26 3 PG Care Time/CCT Total # of Minutes Spent Total Time Spent with Patient: Total time spent is greater than 50% in coordination of care (as documented) at patient's floor/unit and/or counseling patient: Coding Level of Care Code 89160 SUB INP/OBS CARE 2/35MIN Diagnoses Wound of right foot S91.301A Cellulitis of right lower extremity L03.115 Atrial fibrillation I48.91 Bladder carcinoma C67.9 Elevated troponin R79.89 Chronic respiratory failure with hypoxia J96.11 Nephrostomy status Z93.6 CKD (chronic kidney disease) stage 3, GFR 30-59 ml/min N18.30 Left knee pain M25.562 CAD (coronary artery disease) I25.10 Peripheral arterial disease I73.9 CLL (chronic lymphocytic leukemia) C91.10 Diabetic ulcer of toe of right foot associated with type 2 diabetes mellitus, with other ulcer severity E11.621; L97.518 Diabetes mellitus type: type 2 Diabetic foot ulcer location: toe Laterality: right Non-pressure ulcer stage: with other severity Time Spent (min) 35 (13) Diabetic foot ulcer Diabetes mellitus type: type 2 Diabetic foot ulcer location: toe Laterality: right Non-pressure ulcer stage: with other severity Qualified Code(s): E11.621 - Type 2 diabetes mellitus with foot ulcer; L97.518 - Non-pressure chronic ulcer of other part of right foot with other specified severity
[2023-07-26 07:16] LABS: Hematocrit (blood only) 37.2 % (42.0-52.0); Hemoglobin 11.8 g/dl (14.0-18.0); Mean Corpuscular Hemoglobin 32.2 pg (25.0-34.0); Mean Corpuscular Hgb Conc 31.7 g/dL (32.0-36.0); Mean Corpuscular Volume 101.6 fL (80.0-100.0); Mean Platelet Volume 10.7 fL (9.4-12.4); Platelet Count 385 K/uL (130-400); RDW Coefficient of Variation 14.4 % (11.5-14.5); Red Blood Count 3.66 M/uL (4.70-6.10); White Blood Count 17.68 K/ul (4.8-10.8)
[2023-07-26 07:43] LABS: BUN Creatinine Ratio 26.9 (10-20); Calcium 9.3 mg/dl (8.6-10.3); Creatinine Clr Calc Pharmacy 40.8 ml/min; Est GFR (Non-African American) 43.1 ml/min; Potassium 3.9 mmol/L (3.5-5.1)
[2023-07-26] MEDS: HYDROmorphone INJ 0.5 MG/0.5 ML SYR IV PRN ×2 (08:01→17:49)
--- NOTE | 2023-07-26 12:00 | Hospitalist Progress Note ---
Date of Service July 26, 2023 Assessment & Plan (1) Wound of right foot: Plan: Patient has a history of severe peripheral vascular disease Recently discharged from the hospital first week of July with on the second week on account of right lower extremity cellulitis, ulcer and necrosis of the first and third digits. Placed on vancomycin and cefepime and evaluated by vascular surgery. They offered the only option for revascularization would be an open surgical by pass and said patient not a good surgical candidate given his reduced ejection fraction, history of CLL and bladder cancer. History also evaluated and plan is for either [id number] or below the knee amputation, this is scheduled for today by 2 PM Will continue wound care Continue to hold Eliquis (2) Cellulitis of right lower extremity: Plan: unlikely to heal without good blood flow. abx at least until surgery. WBC has been trending up, although a component could be due to his known CLL Continue antibiotics for now. Patient has been afebrile (3) Atrial fibrillation: Plan: S/p ablation in 2017 Eliquis on hold for surgery (4) Bladder carcinoma: Plan: S/p TURBT x 2 in November 2022 and April 2023 Continue outpatient urologic follow-up (5) Elevated troponin: Plan: demand ischemia due to infection 31.6-->31.2 (6) Chronic respiratory failure with hypoxia: Plan: Chronic respiratory failure with COPD Baseline 3L NC continuous no acute symptoms today continue oxygen supplementation (7) Nephrostomy status: Plan: placed almost a month ago, does not have follow up plan Outpatient follow-up with urology (8) CKD (chronic kidney disease) stage 3, GFR 30-59 ml/min: Plan: stable bun/cr, nephrostomy in place (9) Ischemic cardiomyopathy: Plan: Presently compensated Status post ICD placed in 2021 Continue home meds Continue to monitor input and output, daily weights. (10) Left knee pain: Plan: Status post knee injection (11) CAD (coronary artery disease): Plan: EF 25-30 %, s/p ICD at [facility], clinically asymptomatic at this time (12) Peripheral arterial disease: Plan: BKA on (13) CLL (chronic lymphocytic leukemia): (14) Diabetic foot ulcer: (15) ICD (implantable cardioverter-defibrillator) in place: (16) Valvular heart disease: Plan Disposition:stable on telemetry; amputation ; will need ongoing post op care after, highly likely [place] need SNF [place]hab [place] Full code AHA diet VTE PPx: On Eliquis currently on hold for surgery Admission and Anticipated Discharge Date Admission Date: July 17, 2023 Subjective Patient seen and examined, patient anticipates surgery today by 2 PM and is getting ready for that. No new complaints today, tolerating diet Review of Systems Review of Systems: All systems reviewed are negative, apart from the ones contained in the history. Physical Exam Physical Exam: The patient is awake, alert and oriented 3, well developed and well nourished, normocephalic and atraumatic, lying in bed and in no acute distress. HEENT--PERRL, EOMI, mucous membranes and oropharynx mildly dry Neck--supple. No JVD. No bruits. Thyroid normal, trachea midline, no adenopathy. Heart--normal S1 and S2. No murmurs, rubs or gallops. Lungs--clear bilaterally, no respiratory distress, no accessory muscle use. Abdomen--normal bowel sounds and soft. Extremities--right lower extremity wound ulcer Dermatologic--normal skin turgor, normal color, no abnormal lymph nodes, no rash. Neurologic--cranial nerves II through XII grossly intact. Rheumatologic--normal range of motion. Psychiatric--normal affect. Results & Data Results & Data Vital Signs (Past 12 Hours) Vital Signs Temp Pulse Resp BP Pulse Ox O2 Del Method O2 Flow Rate 07/26/23 11:35 Nasal Cannula 3 07/26/23 11:28 97.9 F 76 18 136/92 95 Nasal Cannula 3 07/26/23 07:41 97.3 F L 73 18 130/80 97 Nasal Cannula 3 07/26/23 03:10 97.4 F L 76 16 136/73 96 Room Air PG Care Time/CCT Total # of Minutes Spent Total Time Spent with Patient: Total time spent is greater than 50% in coordination of care (as documented) at patient's floor/unit and/or counseling patient: Coding Level of Care Code 82515 SUB INP/OBS CARE 2MIN Diagnoses Wound of right foot S91.301A Cellulitis of right lower extremity L03.115 Atrial fibrillation I48.91 Bladder carcinoma C67.9 Elevated troponin R79.89 Chronic respiratory failure with hypoxia J96.11 Nephrostomy status Z93.6 CKD (chronic kidney disease) stage 3, GFR 30-59 ml/min N18.30 Ischemic cardiomyopathy I25.5 Left knee pain M25.562 CAD (coronary artery disease) I25.10 Peripheral arterial disease I73.9 CLL (chronic lymphocytic leukemia) C91.10 Diabetic ulcer of toe of right foot associated with type 2 diabetes mellitus, with other ulcer severity E11.621; L97.518 Diabetes mellitus type: type 2 Diabetic foot ulcer location: toe Laterality: right Non-pressure ulcer stage: with other severity ICD (implantable cardioverter-defibrillator) in place Z95.810 Valvular heart disease I38 Time Spent (min) 35 (14) Diabetic foot ulcer Diabetes mellitus type: type 2 Diabetic foot ulcer location: toe Laterality: right Non-pressure ulcer stage: with other severity Qualified Code(s): E11.621 - Type 2 diabetes mellitus with foot ulcer; L97.518 - Non-pressure chronic ulcer of other part of right foot with other specified severity
--- NOTE | 2023-07-26 13:15 | History & Physical Bridge Note ---
Date of Service July 26, 2023 History & Physical Bridge Note I have examined the patient, reviewed the History & Physical and in the interval since the performance of the History & Physical I have noted the following changes of clinical significance: no changes noted
[2023-07-26] MEDS: LACTATED RINGER'S 1,000 ML IV SCH (13:40)
[2023-07-26] MEDS ORDERED: ATROPINE SULFATE 0.1 MG/ML 10ML SYR IV PRN (14:30)
[2023-07-26] MEDS ORDERED: ePHEDrine sulfate 50 MG/ML AMP IV PRN (14:30)
[2023-07-26] MEDS ORDERED: ONDANSETRON INJ 2 MG/ML 2 ML VIAL IV PRN (14:30)
[2023-07-26] MEDS: ALBUT/IPRATROP 3MG/0.5MG NEB 3 ML VIAL NEB STA (14:49)
[2023-07-26] MEDS ORDERED: fentaNYL citrate PF 100 MCG/2 ML VIAL ONE (14:54)
[2023-07-26] MEDS ORDERED: ROCURONIUM BROMIDE 10 MG/ML 5 ML VIAL IV ONE (14:54)
[2023-07-26] MEDS ORDERED: ETOMIDATE 2 MG/ML 20 ML VIAL IV ONE (14:54)
[2023-07-26] MEDS ORDERED: ONDANSETRON INJ 2 MG/ML 2 ML VIAL ONE (14:54)
[2023-07-26] MEDS ORDERED: ceFAZolin 330 MG/ML 1 GM VIAL ONE (15:37)
[2023-07-26] MEDS: ceFAZolin 2000MG 2,000 MG/15 ML SYR IV ONE (15:44)
[2023-07-26] MEDS ORDERED: SUGAMMADEX SODIUM 200 MG/2 ML VIAL IV ONE (16:46)
[2023-07-26] MEDS ORDERED: KETAMINE HCL INJ 50 MG/ML 10 ML VIAL ONE (17:07)
--- NOTE | 2023-07-26 17:11 | Post Operative Brief Note ---
Immediate Post Op Note v1 Date of Surgery July 26, 2023 Pre & Post Diagnosis Operation Date: 07/26/23 14:40 Pre-Op Diagnosis: WORSENING RIGHT FOOT INFECTION Post-Op Diagnosis: WORSENING RIGHT FOOT INFECTION I identified the patient and participated in the time-out.: Yes Procedure Operation Date: 07/26/23 14:40 Actual Procedures p Right Below Knee Amputation(Right) - Saurav Worrell MD Surgeon Saurav Worrell MD Forming Press Operator MD Stephanie Estimated Blood Loss 100 Findings Consistent with Post-Op Diagnosis Anesthesia Type General Complications none Disposition Accompanied Patient To Recovery: No Disposition: Recovery Room
--- NOTE | 2023-07-26 17:15 | Operative Report ---
Post Operative Report Pre & Post Diagnosis Operation Date: 07/26/23 14:40 Pre-Op Diagnosis: WORSENING RIGHT FOOT INFECTION Post-Op Diagnosis: WORSENING RIGHT FOOT INFECTION I identified the patient and participated in the time-out.: Yes Procedure Operation Date: 07/26/23 14:40 Actual Procedures p Right Below Knee Amputation(Right) - Saurav Worrell MD Surgeon Saurav Worrell MD [employer] Jay Geiger MD Estimated Blood Loss 100 Findings Consistent with Post-Op Diagnosis Healthy appearing muscle below the knee. Wound hemostatic at case completion Specimens None Anesthesia Type General Complications None Indications 73M with PMH of PAD and chronic limb ischemia and rest pain of the right leg. Description of Procedure The patient was taken to the operating room suite and placed in the supine position. General anesthesia was induced. The right leg was circumferentially prepped in a sterile manner. An incision was made four fingerbreadths below the knee and 2/3 down towards the bed on the medial and lateral side. These incisions were then extended longitudinally towards the foot for about 10cm and connected on the posterior side of the leg. Subcutaneous tissue and fascia were then divided using electrocautery. Muscle was then divided using electrocautery. Once all the muscles were transected, the fibula was cleaned and divided using a oscillating bone saw. The tibia was then cleaned and divided using a Gigli bone saw so that it extended 2cm beyond the fibula. A bone knife was then used to complete the posterior aspect of the incision, meeting the medial and lateral endpoints at the level of the lower calf. The right lower extremity was passed off the table as specimen and all bleeding vessels were quickly clamped with hemostats and then tied with 2-0 ties. The sciatic nerve was identified, tied with 2-0 Vicryl suture and then divided distally, and allowed to retract. The wound was inspected and hemostasis was obtained. A small portion of extra muscle on the distal flab was excised. The muscles followed by subcutaneous tissue was then closed over the femur with interrupted 2-0 Vicryl suture. The skin was closed with oren. Steril dressings were applied. Patient was transferred out of the operating room in stable condition Dr. Worrell was present and scrubbed for the entire procedure. I attest to the content of the Intraoperative Record and any orders documented therein. Any exceptions are noted below. Supervising Physician Co-Signing Physician Notes Saurav Worrell MD
[2023-07-26] MEDS: fentaNYL citrate PF 100 MCG/2 ML VIAL IV PRN (17:20)
--- NOTE | 2023-07-26 17:57 | Anesthesiology Progress Note ---
Date of Service July 26, 2023 Anesthesia Post Procedure Vital Signs Vital Signs: Temp Pulse Resp BP Pulse Ox O2 Del Method O2 Flow Rate 07/26/23 14:51 78 18 98 Nasal Cannula 2 07/26/23 13:31 36.5 C 77 18 128/88 97 Nasal Cannula 3 07/26/23 11:35 Nasal Cannula 3 07/26/23 11:28 36.6 C 76 18 136/92 95 Nasal Cannula 3 07/26/23 07:41 36.3 C L 73 18 130/80 97 Nasal Cannula 3 07/26/23 03:10 36.3 C L 76 16 136/73 96 Room Air 07/25/23 19:00 36.6 C 93 H 18 133/68 95 Nasal Cannula 2 Pain Intensity Left Knee: Pain Intensity: 8 Right Foot: Pain Intensity: 5 Transfer of Care Handoff Completed per policy Notes Mental Status: alert / awake / arousable and participated in evaluation Patient Amnestic to Procedure: Yes Nausea / Vomiting: adequately controlled Pain: adequately controlled Airway Patency, RR, SpO2: stable & adequate BP & HR: stable & adequate Hydration State: stable & adequate Anesthetic Complications: no major complications apparent and Pt Satisfied with anesthetic care
[2023-07-26 22:58] LABS: Lyme DNA PCR CSF or Synovial Not Detected (Not Detected); Lyme DNA Source SYNOVIAL FLUID
[2023-07-27 06:53] LABS: BUN Creatinine Ratio 28.9 (10-20); Calcium 9.8 mg/dl (8.6-10.3); Creatinine Clr Calc Pharmacy 39.3 ml/min; Est GFR (African American) 52.8 ml/min; Est GFR (Non-African American) 45.6 ml/min; Potassium 4.7 mmol/L (3.5-5.1)
[2023-07-27 07:01] LABS: Hemoglobin 12.8 g/dl (14.0-18.0); Mean Corpuscular Hemoglobin 32.2 pg (25.0-34.0); Mean Corpuscular Hgb Conc 31.2 g/dL (32.0-36.0); Mean Corpuscular Volume 103.3 fL (80.0-100.0); Mean Platelet Volume 10.6 fL (9.4-12.4); Platelet Count 483 K/uL (130-400); RDW Coefficient of Variation 14.5 % (11.5-14.5); RDW Standard Deviation 54.8 fL (36.4-46.3); Red Blood Count 3.97 M/uL (4.70-6.10); White Blood Count 27.15 K/ul (4.8-10.8)
--- NOTE | 2023-07-27 10:10 | Surgery Progress Note ---
Date of Service July 27, 2023 Assessment & Plan (1) S/P below knee amputation: Plan: Pt doing well POD #1 after RLE BKA. Pt should start PT/OT tomorrow. Will reeval on SUNDAY morning. Admission and Anticipated Discharge Date Admission Date: July 17, 2023 Subjective 73 yo M POD #1 after RLE BKA d/t gangrene of RLE, seen in f/u today. Pt admits RLE surgical pain, controlled 3/10 at rest with pain medication. Pt admits fatigue/malaise. Denies any other complaints. Review of Systems Review of Systems: All systems reviewed & are unremarkable except as noted in HPI & below Physical Exam Constitutional: WD/WN, vitals as above cooperative and comfortable; not in distress Skin: LLE BKA site intact with oren. Mild bleeding on dressing, dressing replaced today. Mild swelling, tenderness, ecchymosis, no necrosis. + excellent knee extension Results & Data Vital Signs (Past 12 Hours) Vital Signs Temp Pulse Pulse Resp BP Pulse Ox O2 Del Method 07/27/23 07:45 18 93 Nasal Cannula 07/27/23 07:40 36.5 C 97 H 16 158/78 H 94 Nasal Cannula 07/27/23 04:00 36.6 C 93 H 18 137/78 95 Nasal Cannula 07/26/23 23:22 36.6 C 102 H 18 144/78 H 97 Nasal Cannula 07/26/23 23:10 Nasal Cannula O2 Flow Rate 07/27/23 07:45 3 07/27/23 07:40 5 07/27/23 04:00 5 07/26/23 23:22 5 07/26/23 23:10 3
[2023-07-27] MEDS: METOPROLOL TARTRATE 1 MG/ML VIAL IV STA (11:32)
--- NOTE | 2023-07-27 12:12 | Hospitalist Progress Note ---
Date of Service July 27, 2023 Assessment & Plan (1) Wound of right foot: Plan: Patient has a history of severe peripheral vascular disease Recently discharged from the hospital first week of July with on the second week on account of right lower extremity cellulitis, ulcer and necrosis of the first and third digits. They offered the only option for revascularization would be an open surgical bypass and said patient not a good surgical candidate given his reduced ejection fraction, history of CLL and bladder cancer. He is now day 1 status post right below the knee amputation Physical Therapy has been consulted Continue pain management (2) Cellulitis of right lower extremity: Plan: He is now status post below the knee amputation Completed course of IV antibiotics Although WBC still elevated, there could be a component of his known CLL. Patient has been afebrile (3) Atrial fibrillation: Plan: S/p ablation in 2017 Eliquis on hold for surgery, resume when appropriate by surgery (4) Bladder carcinoma: Plan: S/p TURBT x 2 in November 2022 and April 2023 Continue outpatient urologic follow-up (5) Elevated troponin: Plan: demand ischemia due to infection 31.6-->31.2 (6) Chronic respiratory failure with hypoxia: Plan: Chronic respiratory failure with COPD Baseline 3L NC continuous no acute symptoms today continue oxygen supplementation (7) Nephrostomy status: Plan: placed almost a month ago, does not have follow up plan Outpatient follow-up with urology (8) CKD (chronic kidney disease) stage 3, GFR 30-59 ml/min: Plan: stable bun/cr, nephrostomy in place (9) Ischemic cardiomyopathy: Plan: Presently compensated Status post ICD placed in 2021 Continue home meds Continue to monitor input and output, daily weights. (10) Left knee pain: Plan: Status post knee injection (11) CAD (coronary artery disease): Plan: EF 25-30 %, s/p ICD at [place], clinically asymptomatic at this time (12) Peripheral arterial disease: Plan: BKA on (13) CLL (chronic lymphocytic leukemia): (14) Diabetic foot ulcer: (15) ICD (implantable cardioverter-defibrillator) in place: (16) Valvular heart disease: Plan Disposition:stable on telemetry; will discharge to rehab on Sunday or Sunday Full code AHA diet VTE PPx: On Eliquis currently on hold for surgery Admission and Anticipated Discharge Date Admission Date: July 17, 2023 Subjective Patient seen and examined, stable post right below the knee amputation, pain is tolerable Review of Systems Review of Systems: All systems reviewed are negative, apart from the ones contained in the history. Physical Exam Physical Exam: The patient is awake, alert and oriented 3, well developed and well nourished, normocephalic and atraumatic, lying in bed and in no acute distress. HEENT--PERRL, EOMI, mucous membranes and oropharynx mildly dry Neck--supple. No JVD. No bruits. Thyroid normal, trachea midline, no adenopathy. Heart--normal S1 and S2. No murmurs, rubs or gallops. Lungs--clear bilaterally, no respiratory distress, no accessory muscle use. Abdomen--normal bowel sounds and soft. Extremities--right BKA Dermatologic--normal skin turgor, normal color, no abnormal lymph nodes, no rash. Neurologic--cranial nerves II through XII grossly intact. Rheumatologic--normal range of motion. Psychiatric--normal affect. Results & Data Results & Data Vital Signs (Past 12 Hours) Vital Signs Temp Pulse Pulse Pulse Resp BP BP 07/27/23 11:55 07/27/23 11:39 96 H 118/56 L 07/27/23 11:32 123 H 135/86 07/27/23 11:22 97.5 F L 80 16 135/68 07/27/23 07:45 18 07/27/23 07:40 97.7 F 97 H 16 158/78 H 07/27/23 04:00 97.9 F 93 H 18 137/78 Pulse Ox Pulse Ox Pulse Ox Pulse Ox O2 Del Method O2 Flow Rate O2 Flow Rate 07/27/23 11:55 93 92 82 L 4 07/27/23 11:39 07/27/23 11:32 07/27/23 11:22 93 Nasal Cannula 4 07/27/23 07:45 93 Nasal Cannula 3 07/27/23 07:40 94 Nasal Cannula 5 07/27/23 04:00 95 Nasal Cannula 5 O2 Flow Rate O2 Flow Rate 07/27/23 11:55 3 3 07/27/23 11:39 07/27/23 11:32 07/27/23 11:22 07/27/23 07:45 07/27/23 07:40 04/19/24 04:00 PG Care Time/CCT Total # of Minutes Spent Total Time Spent with Patient: Total time spent is greater than 50% in coordination of care (as documented) at patient's floor/unit and/or counseling patient: Coding Level of Care Code 01844 SUB INP/OBS CARE 2/35MIN Diagnoses Wound of right foot S91.301A Cellulitis of right lower extremity L03.115 Atrial fibrillation I48.91 Bladder carcinoma C67.9 Elevated troponin R79.89 Chronic respiratory failure with hypoxia J96.11 Nephrostomy status Z93.6 CKD (chronic kidney disease) stage 3, GFR 30-59 ml/min N18.30 Ischemic cardiomyopathy I25.5 Left knee pain M25.562 CAD (coronary artery disease) I25.10 Peripheral arterial disease I73.9 CLL (chronic lymphocytic leukemia) C91.10 Diabetic ulcer of toe of right foot associated with type 2 diabetes mellitus, with other ulcer severity E11.621; L97.518 Diabetes mellitus type: type 2 Diabetic foot ulcer location: toe Laterality: right Non-pressure ulcer stage: with other severity ICD (implantable cardioverter-defibrillator) in place Z95.810 Valvular heart disease I38 Time Spent (min) 35 (14) Diabetic foot ulcer Diabetes mellitus type: type 2 Diabetic foot ulcer location: toe Laterality: right Non-pressure ulcer stage: with other severity Qualified Code(s): E11.621 - Type 2 diabetes mellitus with foot ulcer; L97.518 - Non-pressure chronic ulcer of other part of right foot with other specified severity
[2023-07-28 06:51] LABS: BUN Creatinine Ratio 30.8 (10-20); Calcium 9.8 mg/dl (8.6-10.3); Creatinine Clr Calc Pharmacy 36.8 ml/min; Est GFR (African American) 48.8 ml/min; Est GFR (Non-African American) 42.1 ml/min; Hematocrit (blood only) 35.4 % (42.0-52.0); Hemoglobin 11.6 g/dl (14.0-18.0); Mean Corpuscular Hemoglobin 32.3 pg (25.0-34.0); Mean Corpuscular Hgb Conc 32.8 g/dL (32.0-36.0); Mean Corpuscular Volume 98.6 fL (80.0-100.0); Mean Platelet Volume 10.6 fL (9.4-12.4); Platelet Count 367 K/uL (130-400); RDW Coefficient of Variation 14.4 % (11.5-14.5); RDW Standard Deviation 52.3 fL (36.4-46.3); Red Blood Count 3.59 M/uL (4.70-6.10)
[2023-07-28] MEDS: SODIUM CHLORIDE 0.9% 1,000 ML IV SCH (08:42)
--- NOTE | 2023-07-28 10:52 | Hospitalist Progress Note ---
Date of Service July 28, 2023 Assessment & Plan (1) Wound of right foot: Plan: Patient has a history of severe peripheral vascular disease Recently discharged from the hospital first week of July with on the second week on account of right lower extremity cellulitis, ulcer and necrosis of the first and third digits. They offered the only option for revascularization would be an open surgical bypass and said patient not a good surgical candidate given his reduced ejection fraction, history of CLL and bladder cancer. He is now day 2 status post right below the knee amputation Physical Therapy has been consulted Continue pain management (2) Cellulitis of right lower extremity: Plan: He is now status post below the knee amputation Completed course of IV antibiotics Although WBC still elevated, there could be a component of his known CLL, and also a component from stress following surgery WBC is trending down Patient has been afebrile (3) Atrial fibrillation: Plan: S/p ablation in 2018 Eliquis on hold for surgery, resume when appropriate by surgery (4) Bladder carcinoma: Plan: S/p TURBT x 2 in November 2022 and April 2023 Continue outpatient urologic follow-up (5) Elevated troponin: Plan: Most likely from demand ischemia due to infection (6) Chronic respiratory failure with hypoxia: Plan: Chronic respiratory failure with COPD Baseline 3L NC continuous no acute symptoms today continue oxygen supplementation (7) Nephrostomy status: Plan: placed almost a month ago, does not have follow up plan Outpatient follow-up with urology (8) CKD (chronic kidney disease) stage 3, GFR 30-59 ml/min: Plan: stable bun/cr, nephrostomy in place (9) Ischemic cardiomyopathy: Plan: Presently compensated Status post ICD placed in 2021 Continue home meds Continue to monitor input and output, daily weights. (10) Left knee pain: Plan: Status post knee injection (11) CAD (coronary artery disease): Plan: EF 25-30 %, s/p ICD at [place], clinically asymptomatic at this time (12) Peripheral arterial disease: Plan: Status post below the knee amputation (13) CLL (chronic lymphocytic leukemia): Plan: Stable (14) Diabetic foot ulcer: Plan: Now status post below the knee amputation (15) ICD (implantable cardioverter-defibrillator) in place: (16) Valvular heart disease: Plan Disposition:stable on telemetry; will discharge to rehab on Sunday or Sunday Full code AHA diet VTE PPx: On Eliquis currently on hold for surgery Admission and Anticipated Discharge Date Admission Date: July 17, 2023 Subjective Patient seen and examined, stable post right below the knee amputation, pain is tolerable Review of Systems Review of Systems: All systems reviewed are negative, apart from the ones contained in the history. Physical Exam Physical Exam: The patient is awake, alert and oriented 3, well developed and well nourished, normocephalic and atraumatic, lying in bed and in no acute distress. HEENT--PERRL, EOMI, mucous membranes and oropharynx mildly dry Neck--supple. No JVD. No bruits. Thyroid normal, trachea midline, no adenopathy. Heart--normal S1 and S2. No murmurs, rubs or gallops. Lungs--clear bilaterally, no respiratory distress, no accessory muscle use. Abdomen--normal bowel sounds and soft. Extremities--right BKA Dermatologic--normal skin turgor, normal color, no abnormal lymph nodes, no rash. Neurologic--cranial nerves II through XII grossly intact. Rheumatologic--normal range of motion. Psychiatric--normal affect. Results & Data Results & Data Vital Signs (Past 12 Hours) Vital Signs Temp Pulse Resp BP Pulse Ox O2 Del Method O2 Flow Rate 07/28/23 08:12 98.1 F 57 L 16 135/79 94 Nasal Cannula 4 07/28/23 03:58 98.2 F 61 18 163/74 H 91 Nasal Cannula 4 07/27/23 23:14 98.3 F 54 L 18 151/80 H 91 Nasal Cannula 4 PG Care Time/CCT Total # of Minutes Spent Total Time Spent with Patient: Total time spent is greater than 50% in coordination of care (as documented) at patient's floor/unit and/or counseling patient: Coding Level of Care Code 77564 SUB INP/OBS CARE 2/35MIN Diagnoses Wound of right foot S91.301A Cellulitis of right lower extremity L03.115 Atrial fibrillation I48.91 Bladder carcinoma C67.9 Elevated troponin R79.89 Chronic respiratory failure with hypoxia J96.11 Nephrostomy status Z93.6 CKD (chronic kidney disease) stage 3, GFR 30-59 ml/min N18.30 Ischemic cardiomyopathy I25.5 Left knee pain M25.562 CAD (coronary artery disease) I25.10 Peripheral arterial disease I73.9 CLL (chronic lymphocytic leukemia) C91.10 Diabetic ulcer of toe of right foot associated with type 2 diabetes mellitus, with other ulcer severity E11.621; L97.518 Diabetes mellitus type: type 2 Diabetic foot ulcer location: toe Laterality: right Non-pressure ulcer stage: with other severity ICD (implantable cardioverter-defibrillator) in place Z95.810 Valvular heart disease I38 Time Spent (min) 35 (14) Diabetic foot ulcer Diabetes mellitus type: type 2 Diabetic foot ulcer location: toe Laterality: right Non-pressure ulcer stage: with other severity Qualified Code(s): E11.621 - Type 2 diabetes mellitus with foot ulcer; L97.518 - Non-pressure chronic ulcer of other part of right foot with other specified severity
[2023-07-29 06:48] LABS: Hemoglobin 10.9 g/dl (14.0-18.0); Mean Corpuscular Hemoglobin 32.4 pg (25.0-34.0); Mean Corpuscular Hgb Conc 32.1 g/dL (32.0-36.0); Mean Corpuscular Volume 101.2 fL (80.0-100.0); Mean Platelet Volume 10.5 fL (9.4-12.4); Platelet Count 311 K/uL (130-400); RDW Coefficient of Variation 14.6 % (11.5-14.5); RDW Standard Deviation 53.4 fL (36.4-46.3); Red Blood Count 3.36 M/uL (4.70-6.10); White Blood Count 19.95 K/ul (4.8-10.8)
[2023-07-29 07:09] LABS: BUN Creatinine Ratio 33.3 (10-20); Calcium 9.3 mg/dl (8.6-10.3); Creatinine Clr Calc Pharmacy 46.4 ml/min; Est GFR (African American) 64.7 ml/min; Est GFR (Non-African American) 55.8 ml/min; Potassium 3.9 mmol/L (3.5-5.1)
[2023-07-29] MEDS: POLYETHYLENE (MIRALAX) 17 GM PACK PO SCH (09:55)
--- NOTE | 2023-07-29 10:15 | Hospitalist Progress Note ---
Date of Service July 29, 2023 Assessment & Plan (1) Wound of right foot: Plan: Patient has a history of severe peripheral vascular disease Recently discharged from the hospital first week of July with on the second week on account of right lower extremity cellulitis, ulcer and necrosis of the first and third digits. They offered the only option for revascularization would be an open surgical bypass and said patient not a good surgical candidate given his reduced ejection fraction, history of CLL and bladder cancer. He is now day 2 status post right below the knee amputation Physical Therapy has been consulted Continue pain management (2) Cellulitis of right lower extremity: Plan: He is now status post below the knee amputation Completed course of IV antibiotics Although WBC still elevated, there could be a component of his known CLL, and also a component from stress following surgery WBC is trending down Patient has been afebrile (3) Atrial fibrillation: Plan: S/p ablation in 2018 Eliquis on hold for surgery, resume when appropriate by surgery (4) Bladder carcinoma: Plan: S/p TURBT x 2 in November 2022 and April 2023 Continue outpatient urologic follow-up (5) Elevated troponin: Plan: Most likely from demand ischemia due to infection (6) Chronic respiratory failure with hypoxia: Plan: Chronic respiratory failure with COPD Baseline 3L NC continuous no acute symptoms today continue oxygen supplementation (7) Nephrostomy status: Plan: placed almost a month ago, does not have follow up plan Outpatient follow-up with urology (8) Ischemic cardiomyopathy: Plan: Presently compensated Status post ICD placed in 2021 Continue home meds Continue to monitor input and output, daily weights. (9) Constipated: Plan: Has not had a bowel movement since the surgery Possibly aggravated by narcotics as well Start on scheduled MiraLAX (10) CKD (chronic kidney disease) stage 3, GFR 30-59 ml/min: Plan: stable bun/cr, nephrostomy in place (11) Left knee pain: Plan: Status post knee injection (12) CAD (coronary artery disease): Plan: EF 25-30 %, s/p ICD at [place], clinically asymptomatic at this time (13) Peripheral arterial disease: Plan: Status post below the knee amputation (14) CLL (chronic lymphocytic leukemia): Plan: Stable (15) Diabetic foot ulcer: Plan: Now status post below the knee amputation (16) ICD (implantable cardioverter-defibrillator) in place: (17) Valvular heart disease: Plan Disposition:stable on telemetry; will discharge to rehab on Sunday or Sunday Full code AHA diet VTE PPx: On Eliquis currently on hold for surgery Admission and Anticipated Discharge Date Admission Date: July 17, 2023 Subjective Patient seen and examined, stable post right below the knee amputation, pain is tolerable Review of Systems Review of Systems: All systems reviewed are negative, apart from the ones contained in the history. Physical Exam Physical Exam: The patient is awake, alert and oriented 3, well developed and well nourished, normocephalic and atraumatic, lying in bed and in no acute distress. HEENT--PERRL, EOMI, mucous membranes and oropharynx mildly dry Neck--supple. No JVD. No bruits. Thyroid normal, trachea midline, no adenopathy. Heart--normal S1 and S2. No murmurs, rubs or gallops. Lungs--clear bilaterally, no respiratory distress, no accessory muscle use. Abdomen--normal bowel sounds and soft. Extremities--right BKA Dermatologic--normal skin turgor, normal color, no abnormal lymph nodes, no rash. Neurologic--cranial nerves II through XII grossly intact. Rheumatologic--normal range of motion. Psychiatric--normal affect. Results & Data Results & Data Vital Signs (Past 12 Hours) Vital Signs Temp Pulse Resp BP BP Pulse Ox O2 Del Method 07/29/23 07:57 Nasal Cannula 07/29/23 07:57 98.1 F 98 H 16 158/77 H 96 Nasal Cannula 07/29/23 03:38 98.2 F 121 H 18 118/67 92 Nasal Cannula O2 Flow Rate 07/29/23 07:57 4 07/29/23 07:57 4 07/29/23 03:38 4 PG Care Time/CCT Total # of Minutes Spent Total Time Spent with Patient: Total time spent is greater than 50% in coordination of care (as documented) at patient's floor/unit and/or counseling patient: Coding Level of Care Code 99487 SUB INP/OBS CARE 2/35MIN Diagnoses Wound of right foot S91.301A Cellulitis of right lower extremity L03.115 Atrial fibrillation I48.91 Bladder carcinoma C67.9 Elevated troponin R79.89 Chronic respiratory failure with hypoxia J96.11 Nephrostomy status Z93.6 Ischemic cardiomyopathy I25.5 Constipated K59.00 CKD (chronic kidney disease) stage 3, GFR 30-59 ml/min N18.30 Left knee pain M25.562 CAD (coronary artery disease) I25.10 Peripheral arterial disease I73.9 CLL (chronic lymphocytic leukemia) C91.10 Diabetic ulcer of toe of right foot associated with type 2 diabetes mellitus, with other ulcer severity E11.621; L97.518 Diabetes mellitus type: type 2 Diabetic foot ulcer location: toe Laterality: right Non-pressure ulcer stage: with other severity ICD (implantable cardioverter-defibrillator) in place Z95.810 Valvular heart disease I38 Time Spent (min) 35 (15) Diabetic foot ulcer Diabetes mellitus type: type 2 Diabetic foot ulcer location: toe Laterality: right Non-pressure ulcer stage: with other severity Qualified Code(s): E11.621 - Type 2 diabetes mellitus with foot ulcer; L97.518 - Non-pressure chronic ulcer of other part of right foot with other specified severity
[2023-07-29] MEDS: bisacodyL 10 MG SUPP PR STA (12:13)
[2023-07-30 06:54] LABS: Hematocrit (blood only) 32.9 % (42.0-52.0); Hemoglobin 10.4 g/dl (14.0-18.0); Mean Corpuscular Hemoglobin 31.9 pg (25.0-34.0); Mean Corpuscular Hgb Conc 31.6 g/dL (32.0-36.0); Mean Corpuscular Volume 100.9 fL (80.0-100.0); Platelet Count 304 K/uL (130-400); RDW Coefficient of Variation 14.5 % (11.5-14.5); RDW Standard Deviation 53.9 fL (36.4-46.3); Red Blood Count 3.26 M/uL (4.70-6.10); White Blood Count 19.41 K/ul (4.8-10.8)
[2023-07-30 07:24] LABS: Calcium 9.1 mg/dl (8.6-10.3); Creatinine Clr Calc Pharmacy 56.8 ml/min; Est GFR (African American) 82.6 ml/min; Est GFR (Non-African American) 71.2 ml/min; Potassium 3.8 mmol/L (3.5-5.1)
--- NOTE | 2023-07-30 08:53 | Surgery Progress Note ---
Date of Service July 30, 2023 Assessment & Plan (1) S/P below knee amputation: Plan: Pt doing well POD #4 after RLE BKA. Pt ok for d/c to rehab from vascular standpoint. Admission and Anticipated Discharge Date Admission Date: July 17, 2023 Subjective 73 yo m POD # 4 after RLE BKA, seen in f/u today. Pt states still having some p ain, but improving. No other complaints. Review of Systems Review of Systems: All systems reviewed & are unremarkable except as noted in HPI & below Physical Exam Constitutional: WD/WN, vitals as above cooperative and comfortable; not in distress Musculoskeletal: Extremities: + amputation noted (RLE BKA, intact with oren, minimal bleeding noted. No necrosis) Results & Data Vital Signs (Past 12 Hours) Vital Signs Temp Pulse Pulse Resp BP Pulse Ox O2 Del Method 07/30/23 07:39 36.6 C 93 H 16 183/97 H 97 Nasal Cannula 07/30/23 04:48 36.4 C L 82 18 98/61 L 97 Nasal Cannula 07/29/23 23:01 36.6 C 86 18 135/75 91 Nasal Cannula 07/29/23 23:00 91 H O2 Flow Rate 07/30/23 07:39 4 07/30/23 04:48 4 07/29/23 23:01 4 07/29/23 23:00
--- NOTE | 2023-07-30 10:41 | Hospitalist Progress Note ---
Date of Service July 30, 2023 Assessment & Plan (1) Wound of right foot: Plan: Patient has a history of severe peripheral vascular disease Recently discharged from the hospital first week of July with on the second week on account of right lower extremity cellulitis, ulcer and necrosis of the first and third digits. They offered the only option for revascularization would be an open surgical bypass and said patient not a good surgical candidate given his reduced ejection fraction, history of CLL and bladder cancer. He is now day 4 status post right below the knee amputation Physical Therapy has been consulted Continue pain management (2) Cellulitis of right lower extremity: Plan: He is now status post below the knee amputation Completed course of IV antibiotics Although WBC still elevated, there could be a component of his known CLL, and also a component from stress following surgery WBC is trending down Patient has been afebrile (3) Atrial fibrillation: Plan: S/p ablation in 2018 Eliquis has been resumed (4) Bladder carcinoma: Plan: S/p TURBT x 2 in November 2022 and April 2023 Continue outpatient urologic follow-up (5) Elevated troponin: Plan: Most likely from demand ischemia due to infection (6) Chronic respiratory failure with hypoxia: Plan: Chronic respiratory failure with COPD Baseline 3L NC continuous Some worsening shortness of breath today, and obtain chest x-ray portable continue oxygen supplementation (7) Nephrostomy status: Plan: placed almost a month ago, does not have follow up plan Outpatient follow-up with urology (8) Ischemic cardiomyopathy: Plan: Presently compensated Status post ICD placed in 2021 Continue home meds Continue to monitor input and output, daily weights. (9) Constipated: Plan: Has not had a bowel movement since the surgery Possibly aggravated by narcotics as well Start on scheduled MiraLAX (10) CKD (chronic kidney disease) stage 3, GFR 30-59 ml/min: Plan: stable bun/cr, nephrostomy in place (11) Left knee pain: Plan: Status post knee injection (12) CAD (coronary artery disease): Plan: EF 25-30 %, s/p ICD at [place], clinically asymptomatic at this time (13) Peripheral arterial disease: Plan: Status post below the knee amputation (14) CLL (chronic lymphocytic leukemia): Plan: Stable (15) Diabetic foot ulcer: Plan: Now status post below the knee amputation (16) ICD (implantable cardioverter-defibrillator) in place: (17) Valvular heart disease: Plan Disposition:stable on telemetry; will discharge to rehab pending insurance authorization Full code AHA diet VTE PPx: On Eliquis Admission and Anticipated Discharge Date Admission Date: July 17, 2023 Subjective Patient seen and examined, day 4 status post below the knee amputation, pain is under fair control however is beginning to have worsening shortness of breath. Review of Systems Review of Systems: All systems reviewed are negative, apart from the ones contained in the history. Physical Exam Physical Exam: The patient is awake, alert and oriented 3, well developed and well nourished, normocephalic and atraumatic, lying in bed and in no acute distress. HEENT--PERRL, EOMI, mucous membranes and oropharynx mildly dry Neck--supple. No JVD. No bruits. Thyroid normal, trachea midline, no adenopathy. Heart--normal S1 and S2. No murmurs, rubs or gallops. Lungs--clear bilaterally, no respiratory distress, no accessory muscle use. Abdomen--normal bowel sounds and soft. Extremities--right BKA Dermatologic--normal skin turgor, normal color, no abnormal lymph nodes, no rash. Neurologic--cranial nerves II through XII grossly intact. Rheumatologic--normal range of motion. Psychiatric--normal affect. Results & Data Results & Data Vital Signs (Past 12 Hours) Vital Signs Temp Pulse Pulse Resp BP Pulse Ox O2 Del Method 07/30/23 07:39 97.9 F 93 H 16 183/97 H 97 Nasal Cannula 07/30/23 04:48 97.5 F L 82 18 98/61 L 97 Nasal Cannula 07/29/23 23:01 97.9 F 86 18 135/75 91 Nasal Cannula 07/29/23 23:00 91 H O2 Flow Rate 07/30/23 07:39 4 07/30/23 04:48 4 07/29/23 23:01 4 07/29/23 23:00 PG Care Time/CCT Total # of Minutes Spent Total Time Spent with Patient: Total time spent is greater than 50% in coordination of care (as documented) at patient's floor/unit and/or counseling patient: Coding Level of Care Code 88559 SUB INP/OBS CARE 2/35MIN Diagnoses Wound of right foot S91.301A Cellulitis of right lower extremity L03.115 Atrial fibrillation I48.91 Bladder carcinoma C67.9 Elevated troponin R79.89 Chronic respiratory failure with hypoxia J96.11 Nephrostomy status Z93.6 Ischemic cardiomyopathy I25.5 Constipated K59.00 CKD (chronic kidney disease) stage 3, GFR 30-59 ml/min N18.30 Left knee pain M25.562 CAD (coronary artery disease) I25.10 Peripheral arterial disease I73.9 CLL (chronic lymphocytic leukemia) C91.10 Diabetic ulcer of toe of right foot associated with type 2 diabetes mellitus, with other ulcer severity E11.621; L97.518 Diabetes mellitus type: type 2 Diabetic foot ulcer location: toe Laterality: right Non-pressure ulcer stage: with other severity ICD (implantable cardioverter-defibrillator) in place Z95.810 Valvular heart disease I38 Time Spent (min) 35 (15) Diabetic foot ulcer Diabetes mellitus type: type 2 Diabetic foot ulcer location: toe Laterality: right Non-pressure ulcer stage: with other severity Qualified Code(s): E11.621 - Type 2 diabetes mellitus with foot ulcer; L97.518 - Non-pressure chronic ulcer of other part of right foot with other specified severity
--- NOTE | 2023-07-30 12:08 | XRay Report ---
XR chest 1V portable CLINICAL HISTORY: Shortness of breath. COMPARISON STUDY: Chest radiograph July 17, 2023. FINDINGS: Left subclavian pacer, median sternotomy wires and mediastinal clips are in place. Moderate cardiomegaly is unchanged. Interstitial thickening is similar to prior exams and likely chronic. The re is no consolidation to suggest pneumonia. There is no pneumothorax or pleural effusion. IMPRESSION: No acute cardiopulmonary findings. Stable interstitial thickening, likely chronic. ACT 112: Negative or not required by law. Electronically signed by: Biju Lr M.D. 07/30/2023 12:06 PM
[2023-07-30 12:17] LABS: Magnesium 1.8 mg/dl (1.7-2.4)
[2023-07-31 06:52] LABS: BUN Creatinine Ratio 31.1 (10-20); Calcium 9.3 mg/dl (8.6-10.3); Creatinine Clr Calc Pharmacy 55.2 ml/min; Est GFR (African American) 79.7 ml/min; Est GFR (Non-African American) 68.8 ml/min; Potassium 3.7 mmol/L (3.5-5.1)
[2023-07-31 07:23] LABS: Hematocrit (blood only) 32.8 % (42.0-52.0); Hemoglobin 10.6 g/dl (14.0-18.0); Mean Corpuscular Hemoglobin 32.6 pg (25.0-34.0); Mean Corpuscular Hgb Conc 32.3 g/dL (32.0-36.0); Mean Corpuscular Volume 100.9 fL (80.0-100.0); Mean Platelet Volume 11.2 fL (9.4-12.4); Platelet Count 324 K/uL (130-400); RDW Coefficient of Variation 14.6 % (11.5-14.5); RDW Standard Deviation 54.4 fL (36.4-46.3); Red Blood Count 3.25 M/uL (4.70-6.10); White Blood Count 18.53 K/ul (4.8-10.8)
--- NOTE | 2023-07-31 11:07 | Hospitalist Progress Note ---
Date of Service July 31, 2023 Assessment & Plan (1) Wound of right foot: Plan: Patient has a history of severe peripheral vascular disease Recently discharged from the hospital first week of July with on the second week on account of right lower extremity cellulitis, ulcer and necrosis of the first and third digits. They offered the only option for revascularization would be an open surgical bypass and said patient not a good surgical candidate given his reduced ejection fraction, history of CLL and bladder cancer. He is now day 5 status post right below the knee amputation Orthotics also consulted Physical Therapy has been consulted Continue pain management (2) Cellulitis of right lower extremity: Plan: He is now status post below the knee amputation Completed course of IV antibiotics Although WBC still elevated, there could be a component of his known CLL, and also a component from stress following surgery WBC is trending down Patient has been afebrile (3) Atrial fibrillation: Plan: S/p ablation in 2018 Eliquis has been resumed (4) Chronic respiratory failure with hypoxia: Plan: Chronic respiratory failure with COPD Baseline 3L NC continuous Some worsening shortness of breath today, however x-ray did not show any acute pathology continue oxygen supplementation (5) Bladder carcinoma: Plan: S/p TURBT x 2 in November 2022 and April 2023 Continue outpatient urologic follow-up (6) Elevated troponin: Plan: Most likely from demand ischemia due to infection (7) Nephrostomy status: Plan: placed almost a month ago, does not have follow up plan Outpatient follow-up with urology (8) Ischemic cardiomyopathy: Plan: Presently compensated Status post ICD placed in 2021 Continue home meds Continue to monitor input and output, daily weights. (9) Constipated: Plan: Now resolved Continue MiraLAX as needed (10) CKD (chronic kidney disease) stage 3, GFR 30-59 ml/min: Plan: stable bun/cr, nephrostomy in place (11) Left knee pain: Plan: Status post knee injection (12) CAD (coronary artery disease): Plan: EF 25-30 %, s/p ICD at [place], clinically asymptomatic at this time Continue home medications (13) Peripheral arterial disease: Plan: Status post below the knee amputation (14) CLL (chronic lymphocytic leukemia): Plan: Stable (15) Diabetic foot ulcer: Plan: Now status post below the knee amputation (16) ICD (implantable cardioverter-defibrillator) in place: (17) Valvular heart disease: (18) Chronic HFrEF (heart failure with reduced ejection fraction): Plan: Ejection fraction 20 to 30% ICD in place Presently compensated Continue home medications Monitor input and output, daily weights. Plan Disposition:stable on telemetry; will discharge to rehab pending insurance authorization Full code AHA diet VTE PPx: On Eliquis Admission and Anticipated Discharge Date Admission Date: July 17, 2023 Subjective Patient seen and examined, day 5 status post below the knee amputation, pain is under fair control, tolerating diet, Review of Systems Review of Systems: All systems reviewed are negative, apart from the ones contained in the history. Physical Exam Physical Exam: The patient is awake, alert and oriented 3, in mild respiratory distress HEENT--PERRL, EOMI, mucous membranes and oropharynx mildly dry Neck--supple. No JVD. No bruits. Thyroid normal, trachea midline, no adenopathy. Heart--normal S1 and S2. No murmurs, rubs or gallops. Lungs--clear bilaterally, no respiratory distress, no accessory muscle use. Abdomen--normal bowel sounds and soft. Extremities--right BKA Dermatologic--normal skin turgor, normal color, no abnormal lymph nodes, no rash. Neurologic--cranial nerves II through XII grossly intact. Rheumatologic--normal range of motion. Psychiatric--normal affect. Results & Data Results & Data Vital Signs (Past 12 Hours) Vital Signs Temp Pulse Pulse Resp BP Pulse Ox O2 Del Method 07/31/23 08:00 104 H 07/31/23 07:40 98.1 F 97 H 20 126/81 94 Nasal Cannula 07/31/23 03:42 98.1 F 98 H 16 135/77 97 Nasal Cannula 07/30/23 23:35 98.1 F 98 H 18 141/82 H 94 Nasal Cannula O2 Flow Rate 07/31/23 08:00 07/31/23 07:40 5 07/31/23 03:42 4 07/30/23 23:35 4 PG Care Time/CCT Total # of Minutes Spent Total Time Spent with Patient: Total time spent is greater than 50% in coordination of care (as documented) at patient's floor/unit and/or counseling patient: Coding Level of Care Code 42538 SUB INP/OBS CARE 2/35MIN Diagnoses Wound of right foot S91.301A Cellulitis of right lower extremity L03.115 Atrial fibrillation I48.91 Chronic respiratory failure with hypoxia J96.11 Bladder carcinoma C67.9 Elevated troponin R79.89 Nephrostomy status Z93.6 Ischemic cardiomyopathy I25.5 Constipated K59.00 CKD (chronic kidney disease) stage 3, GFR 30-59 ml/min N18.30 Left knee pain M25.562 CAD (coronary artery disease) I25.10 Peripheral arterial disease I73.9 CLL (chronic lymphocytic leukemia) C91.10 Diabetic ulcer of toe of right foot associated with type 2 diabetes mellitus, with other ulcer severity E11.621; L97.518 Diabetes mellitus type: type 2 Diabetic foot ulcer location: toe Laterality: right Non-pressure ulcer stage: with other severity ICD (implantable cardioverter-defibrillator) in place Z95.810 Valvular heart disease I38 Chronic HFrEF (heart failure with reduced ejection fraction) I50.22 Time Spent (min) 35 (15) Diabetic foot ulcer Diabetes mellitus type: type 2 Diabetic foot ulcer location: toe Laterality: right Non-pressure ulcer stage: with other severity Qualified Code(s): E11.621 - Type 2 diabetes mellitus with foot ulcer; L97.518 - Non-pressure chronic ulcer of other part of right foot with other specified severity
--- NOTE | 2023-07-31 11:20 | Discharge Summary ---
Date of Service July 31, 2023 Admission HPI Per Admitting Provider Michael is a 73-year-old male with PMH of atrial fibrillation (on Eliquis), CAD, CLL, bladder carcinoma, PAD, and right foot wound. He was recently discharged from [facility] on 07/12 for LE edema, right foot infection, and severe PVD. He returned on 07/16 with a worsening of his right toe ulcers, which are now necrotic. Patient has been changing his dressing daily as instructed. He first noticed swelling shortly after discharge, and then erythema developed yesterday on 07/15. At present, he is having burning pain in his right toes, which he rates 5/10. No radiation beyond the right foot. He has been taking Tylenol at home, which has not been helping. Not applying any creams, lotions, or ointments, but has been using antimicrobial dressing and covering with gauze. He is also been trying to elevate his legs for swelling. Patient was told to take his remaining cefadroxil tablets upon discharge, which were previously prescribed on 07/01; he took 4 total capsules at home. Patient does have a history of diabetes, and reports that he checks his blood sugar twice daily, and watches his diet. He wears supplemental oxygen 3L NC at baseline. He does have a history of cellulitis, or what he believes to be cellulitis in his foot. He is unsure when the blackness/necrosis developed over his toes, as he is unable to see the bottoms of them. He has been using a walker lately for ambulation. He also endorses ongoing neck pain, which he attributes to difficulty sleeping with his recent hospital stay; worse with movements. He has been sleeping in a rocking chair at home for the neck pain, and leg elevation. Patient is a former tobacco cigarette smoker; quit smoking in August 2015. He quit alcohol in January 2012. Vital stable at time of admission. ED course: Vancomycin 1500 mg IV Zosyn 4.5 g IV ROS: Patient endorses neck pain, burning pain in R toes, lightheadedness with standing, tension HAs (due to neck pain that started last week; patient attributes to bed sleeping in the hospital), decreased urinary frequency & volume, and N/T in both legs bilaterally (especially bottom of right foot). Patient denies fever, chills, nightsweats, chest pain, chest palpitations, SOB, abdominal pain, N/V/D, burning with urination, or blood in urine/stool, Principal Diagnosis Leg wound infection, status post amputation Discharge Exam The patient is awake, alert and oriented 3, in mild respiratory distress HEENT--PERRL, EOMI, mucous membranes and oropharynx mildly dry Neck--supple. No JVD. No bruits. Thyroid normal, trachea midline, no adenopathy. Heart--normal S1 and S2. No murmurs, rubs or gallops. Lungs--clear bilaterally, no respiratory distress, no accessory muscle use. Abdomen--normal bowel sounds and soft. Extremities--right BKA Dermatologic--normal skin turgor, normal color, no abnormal lymph nodes, no rash. Neurologic--cranial nerves II through XII grossly intact. Rheumatologic--normal range of motion. Psychiatric--normal affect. Discharge Data Allergies Allergy/AdvReac Type Severity Reaction Status Date / Time enalapril Allergy Severe Angioedema Verified 07/17/23 20:41 brimonidine [From Combigan] Allergy Intermediate Hives Verified 07/17/23 20:41 timolol Allergy Intermediate Hives Verified 07/17/23 20:41 Consultations 07/17/23 20:22 Consult Podiatry Routine 07/17/23 20:23 ED Decision to Admit Stat 07/19/23 11:10 Consult Vascular Surgery Routine 07/19/23 14:37 Consult Vascular Surgery Routine 07/22/23 09:03 Consult Orthopedic Surgery Routine 07/22/23 14:38 Consult Cardiology Routine Procedures Performed Operation Date: 07/26/23 14:40 Actual Procedures p Right Below Knee Amputation(Right) - Saurav Worrell MD Hospital Course (1) Wound of right foot: Patient has a history of severe peripheral vascular disease Recently discharged from the hospital first week of July with on the second week on account of right lower extremity cellulitis, ulcer and necrosis of the first and third digits. They offered the only option for revascularization would be an open surgical bypass and said patient not a good surgical candidate given his reduced ejection fraction, history of CLL and bladder cancer. He is now day 5 status post right below the knee amputation Orthotics also consulted Physical Therapy has been consulted Continue pain management (2) Cellulitis of right lower extremity: He is now status post below the knee amputation Completed course of IV antibiotics Although WBC still elevated, there could be a component of his known CLL, and also a component from stress following surgery WBC is trending down Patient has been afebrile (3) Atrial fibrillation: S/p ablation in 2017 Eliquis has been resumed (4) Chronic respiratory failure with hypoxia: Chronic respiratory failure with COPD Baseline 3L NC continuous Some worsening shortness of breath today, however x-ray did not show any acute pathology continue oxygen supplementation (5) Bladder carcinoma: S/p TURBT x 2 in November 2022 and April 2023 Continue outpatient urologic follow-up (6) Elevated troponin: Most likely from demand ischemia due to infection (7) Nephrostomy status: placed almost a month ago, does not have follow up plan Outpatient follow-up with urology (8) Ischemic cardiomyopathy: Presently compensated Status post ICD placed in 2021 Continue home meds Continue to monitor input and output, daily weights. (9) Constipated: Now resolved Continue MiraLAX as needed (10) CKD (chronic kidney disease) stage 3, GFR 30-59 ml/min: stable bun/cr, nephrostomy in place (11) Left knee pain: Status post knee injection (12) CAD (coronary artery disease): EF 25-30 %, s/p ICD at [place], clinically asymptomatic at this time Continue home medications (13) Peripheral arterial disease: Status post below the knee amputation (14) CLL (chronic lymphocytic leukemia): Stable (15) Diabetic foot ulcer: Now status post below the knee amputation (16) ICD (implantable cardioverter-defibrillator) in place: (17) Valvular heart disease: (18) Chronic HFrEF (heart failure with reduced ejection fraction): Ejection fraction 20 to 30% ICD in place Presently compensated Continue home medications Monitor input and output, daily weights. Plan Disposition:stable on telemetry; will discharge to rehab pending insurance authorization Full code AHA diet VTE PPx: On Eliquis Total Time Total Time Spent Total Time Spent (In Minutes): 35 Discharge Plan Discharge Items Patient Disposition: Transfer [facility] Reason For Visit: WORSENING RIGHT FOOT INFECTION Discharge Diagnosis: Right foot infection, history of PAD status post amputation Activity: Resume your previous activity Non-emergency contact: Primary Care Provider Call non-emergency contact if: you have any medication questions Follow-up/Referrals: Corey Toth [Primary Care Provider] - Diet: Regular Addtl Attending Provider Instructions: Please make appointment to follow-up with her regular doctors. Also schedule appointment get measurement for orthotics. Follow-up with your antisqueak chalker regarding the nephrostomy tube. Pending Studies at Discharge: No Stand-Alone Forms: My [facility] Skilled Items Patient informed of condition?: Yes DNR: No Discharge Level of Care: Skilled Communicable Disease: No Discharge Prognosis: Stable Lines: None Urinary Catheter: No Medications and DC Order Prescriptions: Continued dimenhydrinate [Dramamine] 50 mg Tablet 50 mg PO Q8H PRN (Reason: Nausea) furosemide [Lasix] 40 mg Tablet 40 mg PO BID atorvastatin 40 mg Tablet 40 mg PO PM cyanocobalamin (vitamin B-12) 1,000 mcg Tablet 1,000 mcg PO QAM hydralazine 25 mg Tablet 25 mg PO TID aspirin 81 mg Tablet,Delayed Release (Dr/Ec) 81 mg PO QAM carvedilol 3.125 mg Tablet 3.125 mg PO BID Rx Instructions: must administer with a meal/food calcium carbonate 600 mg calcium (1,500 mg) Tablet 600 mg PO QAM nitroglycerin 0.4 mg Tablet, Sublingual 0.4 mg sublingual UD PRN (Reason: Chest Pain) ferrous sulfate 27 mg iron Tablet 27 mg PO QAM potassium chloride 20 mEq Tablet Extended Release 20 meq PO QAM Jardiance 10 mg Tablet 10 mg PO QAM Metamucil 3.4 gram/5.4 gram Powder 1 tbsp PO QAM Rx Instructions: mix into at least 8 oz of water or juice before administering Breztri Aerosphere 160-9-4.8 mcg/actuation Hfa Aerosol Inhaler 2 inh INHALATION BID Eliquis 5 mg Tablet 5 mg PO BID acetaminophen 500 mg Tablet 1,000 mg PO Q6H PRN (Reason: Pain) multivitamin Tablet 1 tab PO QAM Discharge Orders: Discharge Order (Routine); Ordered 07/31/23 Ordered By: Joe Moctezuma/Other Patient Handouts: Nutrition for Wound Healing, Managing Type 2 Diabetes Admission Data Admit Date/Time: 07/17/23 22:04 Attending Provider: Joe Rouse Admit Provider: Meenakshi Polk Primary Care Provider: Corey Toth Other Providers: Madan Thomason; Meenakshi Polk; Saurav Worrell; Maria Elena Fernandez; Jack Tomlin; Ramana Hill; Corey Baeza; Leonardo Grover; Mic Moore; Michael Medina; Terence Noonan Jr; Be Gavin; Kelsi Davis; Ana Garcia; Tyrese Valera; Tyrese Mcqueen; Ziggy Moses; Gwen Morales; Joshua Arrington; Jennifer Knapp; Jamison Velasquez; Jam Huddleston; Angel Beatty; Krzysztof Browne Coding Level of Care Code 81700 INP/OBS DISCH >30 MIN Diagnoses Wound of right foot S91.301A Cellulitis of right lower extremity L03.115 Atrial fibrillation I48.91 Chronic respiratory failure with hypoxia J96.11 Bladder carcinoma C67.9 Elevated troponin R79.89 Nephrostomy status Z93.6 Ischemic cardiomyopathy I25.5 Constipated K59.00 CKD (chronic kidney disease) stage 3, GFR 30-59 ml/min N18.30 Left knee pain M25.562 CAD (coronary artery disease) I25.10 Peripheral arterial disease I73.9 CLL (chronic lymphocytic leukemia) C91.10 Diabetic ulcer of toe of right foot associated with type 2 diabetes mellitus, with other ulcer severity E11.621; L97.518 Diabetes mellitus type: type 2 Diabetic foot ulcer location: toe Laterality: right Non-pressure ulcer stage: with other severity ICD (implantable cardioverter-defibrillator) in place Z95.810 Valvular heart disease I38 Chronic HFrEF (heart failure with reduced ejection fraction) I50.22 Time Spent (min) 35
== END 2023-07-31 12:59 | DRG 240 ==
LOC: ED 14:24 → SUATTDRO 22:04 → EDINP 22:04 → 2N 23:03

== ENCOUNTER 2023-09-05 11:29 | Inpatient (IN) ==
--- NOTE | 2023-09-05 12:05 | Emergency Department Note ---
Impression & Plan Dehiscence of wound, Chronic HFrEF (heart failure with reduced ejection fraction), Right shoulder pain, Fall ED Provider Note NAME: CHETNA CHARLTON AGE: 73 SEX: M : 1950 ARRIVES VIA: Ambulance INFORMANT: Patient, ED PROVIDER(S): Hardeep Colmenares MD CHIEF COMPLAINT: Fall, arm and leg pain MEDICAL DECISION MAKING: Patient presents due to concern for fall while transferring and was noted to have an open right BKA wound dehiscence. Patient's wound was placed back into a position of function to where it was no longer gaping. The patient did have nonadherent petroleum gauze placed over the wound site wrapped in Kerlix, stockinette, and 2 Omid wraps. IV was established and blood work was obtained patient was ordered IV morphine plain films completed of the right shoulder as well as the right knee and tibia. Patient was ordered IV Ancef. Of note x-ray tech Abigail stated that they can get the whole portion of the tibia just with the right knee x-ray. Patient's plain films did not show evidence of obvious fracture. Blood work showed a white count of 11 with a hemoglobin of 12.6. Platelet count is unremarkable. Kidney function with a BUN of 38 prerenal azotemia noted. Patient's TSH is normal. I did speak with Dr. Worrell who stated that he is currently unavailable. As this is a wound care issue I did speak with orthopedics Dr. Jordan who kindly took the patient to the OR for operative fixation of the patient's wound dehiscence. I did speak with the hospitalist for primary admission and spoke with Dr. Lindsay and Kem Bazan PA-C. Prior to the patient being admitted or taken to the OR I did inform the patient of the findings and he was comfortable plan of care. Pain was improved and did not require additional pain medication. Discussion w/ other healthcare providers: Dr. Lindsya and Kem Hunter PA-C. Dr. Worrell with vascular surgery Dr. Jordan with orthopedic surgery Prior /Outside records reviewed: I reviewed a discharge summary from July 31, [address] Derick vazquez. Patient with a known history of A-fib on Eliquis CAD he and right foot wound. Patient did have a right BKA completed by Dr. Worrell during the time of his inpatient stay. Patient with known history of chronic respiratory failure with hypoxia and COPD baseline 3 L nasal cannula. Also history of ischemic cardiomyopathy status post ICD constipation CAD EF 25 to 30% status post ICD at [facility]. Differential diagnosis: Fracture, dislocation, contusion, strain, sprain, ICH, hemothorax, intra- abdominal injury, anemia among other causes were considered. Diagnostics, as interpreted by me: ECG: Atrial flutter with variable AV block rate of 91 borderline QRS, normal axis no ST elevations. Cardiac monitoring: An order was placed for continuous cardiac monitoring. The monitor shows a rate of 102 with tachycardic and regular rhythm. Patient was placed on pulse oximetry Medical decision rules: None Imaging studies: I informally interpreted the patient's knee x-ray does not show obvious fracture dislocation with formal report to follow. HPI: Patient presents due to concern for fall that occurred around 7:00 this morning. The patient states that he did take his morning medications was tried to transfer from his bed to his wheelchair when the walker gave out and then he fell onto his recent BKA. The patient does complain of right leg as well as right shoulder pain. Patient is right-hand dominant. The patient complains of pain with trying to move the leg or the right upper arm. Patient denies any head strike or LOC. He is still taking his Eliquis medications. The patient denies adamantly that he did not strike his head. Patient denies any chest pains or shortness of breath he does wear 3 L of chronic oxygen. PAST MEDICAL HISTORY: See Below PAST SURGICAL HISTORY: See Below SOCIAL HISTORY: See Below HOME MEDICATIONS: See Below ALLERGIES: See Below VITALS: See Below PHYSICAL EXAMINATION: GENERAL: Mildly uncomfortable in appearance nasal cannula in place. EYE EXAM: Normal conjunctiva. PERRL, no anisocoria and EOM's grossly intact w/o pain. Head: Normocephalic atraumatic. OROPHARYNX: Moist mucus membranes, grossly normal dentition. NECK: Trachea midline, no stridor. LUNGS: Clear to auscultation. Normal chest wall mechanics. HEART: Tachycardic and regular, no MRG. ABDOMEN: Abdomen soft, non-tender, no masses, no rebound or guarding. BACK: No CVA TTP. SKIN: No rashes and no bruising. UPPER EXTREMITIES: Pain to palpation to the right lateral shoulder, no pain to the elbow neurovascular intact distally. LOWER EXTREMITIES: Right BKA with dehiscence of likely entire prior suture line approximate 10 cm across and gaping with visibility of the tibia noted. Bleeding noted. TTP of the skin flap and area. NEURO EXAM: A&O x3, cranial nerves II-XII grossly intact, normal speech, moves all 4 extremities. Past Med/Surg History Problem List (Updated 09/05/23 @ 19:38 by Hardeep Colmenares MD) Fall (Acute) Dehiscence of wound (Acute) Right shoulder pain (Acute) Chronic HFrEF (heart failure with reduced ejection fraction) (Acute) Constipated Valvular heart disease CKD (chronic kidney disease) stage 3, GFR 30-59 ml/min Nephrostomy status Osteoarthritis of left knee Left knee pain Gangrene of right foot Diabetic foot ulcer (Acute) Cellulitis of right lower extremity Elevated troponin Wound of right foot Edema, peripheral (Acute) Atrial fibrillation On Eliquis s/p ablation 2017 Dysuria Pelvic lymphadenopathy Hydronephrosis, left Acute gout Encounter for pre-operative examination Gross hematuria Bladder carcinoma bcg treatments Medical History Wound dehiscence Fall Peripheral arterial disease Chronic respiratory failure with hypoxia ICD (implantable cardioverter-defibrillator) in place 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 Ortega Dyslipidemia HTN (hypertension) History of gout Hard of hearing No hearing aids Myocardial Infarction 1996 & 2016 Chronic obstructive pulmonary disease 3L via continuous Surgical History S/P below knee amputation History of bladder surgery TURBT History of anesthesia reaction slow to wake History of bone marrow biopsy Right node Lymph node biopsy (04/23/23)- CLL/SLL, negative for metastatic carcinoma History of colonoscopy H/O wisdom tooth extraction History of tonsillectomy History of adenoidectomy History of cataract surgery bilateral S/P ICD (internal cardiac defibrillator) procedure Implanted 2021>last checked February 2022 ? 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 Beliefs That Will Affect Care: Spiritual Current Living Situation: Spouse Feels Safe at Home: Yes Assistive Devices: Oxygen - Continuous Allergies Allergies Allergy/AdvReac Type Severity Reaction Status Date / Time enalapril Allergy Severe Angioedema Verified 09/05/23 15:24 brimonidine [From Combigan] Allergy Intermediate Hives Verified 09/05/23 15:24 timolol Allergy Intermediate Hives Verified 09/05/23 15:24 Home Meds Home Medications Medication Instructions Recorded Confirmed aspirin 81 mg tablet,delayed 81 mg PO QAM 11/01/22 07/17/23 release atorvastatin 40 mg tablet 40 mg PO PM 11/01/22 07/17/23 budesonide 160 mcg-glycopyr 9 2 inh inhalation BID 11/01/22 07/17/23 mcg-formot 4.8 mcg/actuation HFA inhaler (Breztri Aerosphere) calcium carbonate 600 mg PO QAM 11/01/22 07/17/23 carvedilol 3.125 mg tablet 3.125 mg PO BID 11/01/22 07/17/23 cyanocobalamin (vitamin B-12) 1,000 mcg PO QAM 11/01/22 07/17/23 1,000 mcg tablet empagliflozin 10 mg tablet 10 mg PO QAM 11/01/22 07/17/23 (Jardiance) ferrous sulfate 27 mg iron tablet 27 mg PO QAM 11/01/22 07/17/23 furosemide 40 mg tablet (Lasix) 40 mg PO BID 11/01/22 07/17/23 hydralazine 25 mg tablet 25 mg PO TID 11/01/22 07/17/23 nitroglycerin 0.4 mg sublingual 0.4 mg sublingual UD PRN Chest Pain 11/01/22 07/17/23 tablet potassium chloride 20 mEq 20 meq PO QAM 11/01/22 07/17/23 tablet,extended release psyllium husk 3.4 gram/5.4 gram 1 tbsp PO QAM 11/01/22 07/17/23 oral powder (Metamucil) dimenhydrinate 50 mg tablet 50 mg PO Q8H PRN Nausea 12/14/22 07/17/23 (Dramamine) apixaban 5 mg tablet (Eliquis) 5 mg PO BID 05/03/23 07/17/23 acetaminophen 500 mg tablet 1,000 mg PO Q6H PRN Pain 05/09/23 07/17/23 multivitamin 1 tab PO QAM 07/09/23 07/17/23 Results & Data (ED) Vital Signs Vital Signs - 24 hr 09/05/23 11:37 09/05/23 12:26 09/05/23 12:38 Temperature 36.6 C Temperature Source Oral Pulse Rate 102 H 99 H Pulse Rate [Left Finger] Pulse Rate from SpO2 Sensor Pulse Rhythm Regular Irregular Pulse Rhythm [Left Finger] Pulse Strength Normal Pulse Strength [Left Finger] Respiratory Rate 18 18 Respiratory Effort / Characteristics Non-Labored Respiratory Depth Normal Respiratory Pattern Regular Blood Pressure 131/83 Blood Pressure [Left Arm] Blood Pressure Mean 99 Blood Pressure Mean [Left Arm] Blood Pressure Position Lying Blood Pressure Position [Left Arm] Pulse Oximetry 95 95 Oxygen Delivery Method Nasal Cannula Oxygen Flow Rate 3 3 Sepsis Recent Fever Within 48 Hours No Sepsis New/Unexplained Change in Mental Status N/A Sepsis Action Taken by Nursing No Action Required 09/05/23 13:00 09/05/23 13:00 09/05/23 14:11 Temperature Temperature Source Pulse Rate 100 H 102 H Pulse Rate [Left Finger] Pulse Rate from SpO2 Sensor 99 H 104 H Pulse Rhythm Pulse Rhythm [Left Finger] Pulse Strength Pulse Strength [Left Finger] Respiratory Rate 17 37 H Respiratory Effort / Characteristics Respiratory Depth Respiratory Pattern Blood Pressure 124/84 Blood Pressure [Left Arm] Blood Pressure Mean 92 Blood Pressure Mean [Left Arm] Blood Pressure Position Blood Pressure Position [Left Arm] Pulse Oximetry 95 94 Oxygen Delivery Method Oxygen Flow Rate Sepsis Recent Fever Within 48 Hours Sepsis New/Unexplained Change in Mental Status Sepsis Action Taken by Nursing 09/05/23 14:12 09/05/23 14:12 09/05/23 14:30 Temperature Temperature Source Pulse Rate 102 H Pulse Rate [Left Finger] Pulse Rate from SpO2 Sensor 103 H Pulse Rhythm Pulse Rhythm [Left Finger] Pulse Strength Pulse Strength [Left Finger] Respiratory Rate 26 H Respiratory Effort / Characteristics Respiratory Depth Respiratory Pattern Blood Pressure 130/81 130/86 Blood Pressure [Left Arm] Blood Pressure Mean 103 103 Blood Pressure Mean [Left Arm] Blood Pressure Position Blood Pressure Position [Left Arm] Pulse Oximetry 93 Oxygen Delivery Method Oxygen Flow Rate Sepsis Recent Fever Within 48 Hours Sepsis New/Unexplained Change in Mental Status Sepsis Action Taken by Nursing 09/05/23 14:30 09/05/23 16:59 Temperature 36.5 C Temperature Source Oral Pulse Rate 99 H Pulse Rate [Left Finger] 101 H Pulse Rate from SpO2 Sensor 103 H Pulse Rhythm Pulse Rhythm [Left Finger] Regular Pulse Strength Pulse Strength [Left Finger] Normal Respiratory Rate 21 20 Respiratory Effort / Characteristics Non-Labored Spontaneous Respiratory Depth Normal Respiratory Pattern Regular Blood Pressure Blood Pressure [Left Arm] 104/90 Blood Pressure Mean Blood Pressure Mean [Left Arm] 94 Blood Pressure Position Blood Pressure Position [Left Arm] Semi-fowlers Pulse Oximetry 94 95 Oxygen Delivery Method Nasal Cannula Oxygen Flow Rate 3 Sepsis Recent Fever Within 48 Hours Sepsis New/Unexplained Change in Mental Status Sepsis Action Taken by Longterm Medications Current Medication List: was personally reviewed by me Laboratory Data Attestation: I reviewed the patient's lab results. 09/05/23 12:33 09/05/23 12:33 Lab Results 09/05/23 09/05/23 09/05/23 Range/Units 12:33 14:48 15:50 WBC 11.51 H (4.8-10.8) K/ul RBC 3.80 L (4.70-6.10) M/uL Hgb 12.6 L (14.0-18.0) g/dl Hct 38.9 L (42.0-52.0) % MCV 102.4 H (80.0-100.0) fL MCH 33.2 (25.0-34.0) pg MCHC 32.4 (32.0-36.0) g/dL RDW Std Deviation 61.8 H (36.4-46.3) fL RDW Coeff of Sharmaine 16.4 H (11.5-14.5) % Plt Count 279 (130-400) K/uL MPV 10.9 (9.4-12.4) fL Immature Gran % (Auto) 0.8 % Neut % (Auto) 63.4 % Lymph % (Auto) 28.1 % Calvert % (Auto) 6.8 % Eos % (Auto) 0.6 % Baso % (Auto) 0.3 % Neut # (Auto) 7.30 H (1.40-6.50) K/uL Lymph # (Auto) 3.23 (1.20-3.40) K/uL Calvert # (Auto) 0.78 H (0.11-0.59) K/uL Eos # (Auto) 0.07 (0.00-0.50) K/uL Baso # (Auto) 0.04 (0.00-0.20) K/uL Immature Gran # (Auto) 0.09 (0.01-0.20) K/uL PT 11.7 (9.0-12.0) Seconds INR 1.1 (0.9-1.1) APTT 29 (21-31) Seconds PTT Ratio 1.1 Sodium 141 (136-145) mmol/L Potassium 3.8 (3.5-5.1) mmol/L Chloride 101 (98-107) mmol/L Carbon Dioxide 35 H (21-32) mmol/L Anion Gap 5 (3-11) BUN 38 H (6-23) mg/dl Creatinine 1.30 (0.6-1.4) mg/dl Est Cr Clr Drug Dosing 48.7 ml/min Est GFR ( Amer) 62.3 ml/min Est GFR (Non-Af Amer) 53.8 ml/min BUN/Creatinine Ratio 29.2 H (10-20) Glucose 127 H (70-99(Fasting)) mg/dl POC Glucose (70-99) mg/dl Calcium 8.7 (8.6-10.3) mg/dl Total Bilirubin 0.7 (0.2-1.0) mg/dl AST 22 (13-39) U/L ALT 26 (7-52) U/L Alkaline Phosphatase 72 (34-104) U/L Total Protein 6.1 (6.0-8.3) gm/dl Albumin 3.5 (3.4-5.0) gm/dl Globulin 2.6 (2.5-4.0) gm/dl Albumin/Globulin Ratio 1.3 (0.9-2) TSH 2.439 (0.300-4.500) uIu/ml Nasal Screen MRSA (PCR) Negative (Negative) Blood Type O Positive Antibody Screen NEGATIVE 09/05/23 Range/Units 16:59 WBC (4.8-10.8) K/ul RBC (4.70-6.10) M/uL Hgb (14.0-18.0) g/dl Hct (42.0-52.0) % MCV (80.0-100.0) fL MCH (25.0-34.0) pg MCHC (32.0-36.0) g/dL RDW Std Deviation (36.4-46.3) fL RDW Coeff of Sharmaine (11.5-14.5) % Plt Count (130-400) K/uL MPV (9.4-12.4) fL Immature Gran % (Auto) % Neut % (Auto) % Lymph % (Auto) % Calvert % (Auto) % Eos % (Auto) % Baso % (Auto) % Neut # (Auto) (1.40-6.50) K/uL Lymph # (Auto) (1.20-3.40) K/uL Calvert # (Auto) (0.11-0.59) K/uL Eos # (Auto) (0.00-0.50) K/uL Baso # (Auto) (0.00-0.20) K/uL Immature Gran # (Auto) (0.01-0.20) K/uL PT (9.0-12.0) Seconds INR (0.9-1.1) APTT (21-31) Seconds PTT Ratio Sodium (136-145) mmol/L Potassium (3.5-5.1) mmol/L Chloride (98-107) mmol/L Carbon Dioxide (21-32) mmol/L Anion Gap (3-11) BUN (6-23) mg/dl Creatinine (0.6-1.4) mg/dl Est Cr Clr Drug Dosing ml/min Est GFR ( Amer) ml/min Est GFR (Non-Af Amer) ml/min BUN/Creatinine Ratio (10-20) Glucose (70-99(Fasting)) mg/dl POC Glucose 121 H (70-99) mg/dl Calcium (8.6-10.3) mg/dl Total Bilirubin (0.2-1.0) mg/dl AST (13-39) U/L ALT (7-52) U/L Alkaline Phosphatase (34-104) U/L Total Protein (6.0-8.3) gm/dl Albumin (3.4-5.0) gm/dl Globulin (2.5-4.0) gm/dl Albumin/Globulin Ratio (0.9-2) TSH (0.300-4.500) uIu/ml Nasal Screen MRSA (PCR) (Negative) Blood Type Antibody Screen Administered Medications Lactated Ringer's (Lr) 1,000 mls @ 15 mls/hr IV .Q24H EMILEE Stop: 10/05/23 15:59 Last Infusion: 09/05/23 17:59 Dose: Infused Documented By: Admin: 09/05/23 17:44 Dose: 15 mls/hr Documented By: ALEJANDRA Discontinued Medications Bupivacaine HCl (Bupivacaine 0.5 % 5 Mg/1 Ml Mpf 30ml Vial) Confirm Administered Dose 30 ml .ROUTE .STK-MED ONE Stop: 09/05/23 16:09 Last Admin: 09/05/23 19:13 Dose: 20 ml Documented By: ADRIANNA Cefazolin Sodium (Ancef 2000mg) 2,000 mg in 15 mls @ 3.75 mls/min IV NOW STA Stop: 09/05/23 12:29 Last Admin: 09/05/23 12:49 Dose: 3.75 mls/min Documented By: LISA Acetaminophen (Ofirmev) 1,000 mg in 100 mls @ 400 mls/hr IV NOW STA Stop: 09/05/23 14:46 Last Infusion: 09/05/23 15:28 Dose: Infused Documented By: Admin: 09/05/23 14:48 Dose: 400 mls/hr Documented By: LISA Tranexamic Acid (Tranexamic Acid / 0.7% Nacl) 1,000 mg in 100 mls @ 600 mls/hr IV 0600 EMILEE Stop: 09/05/23 18:00 Last Admin: 09/05/23 17:43 Dose: 600 mls/hr Documented By: ALEJANDRA Lidocaine HCl (Lidocaine 1% Local 20 Ml Vial) Confirm Administered Dose 20 ml .ROUTE .STK-MED ONE Stop: 09/05/23 16:09 Last Admin: 09/05/23 19:14 Dose: 20 ml Documented By: ADRIANNA Morphine Sulfate (Morphine Sulfate 10 Mg/Ml Carp/Vial) 6 mg IV NOW STA Stop: 09/05/23 12:27 Last Admin: 09/05/23 12:49 Dose: 6 mg Documented By: E Imaging Data Radiologist's Impression: Shoulder X-Ray 09/05/23 12:26 XR shoulder RT min 2V routine CLINICAL HISTORY: fall, shoulder pain TECHNIQUE: 3 views of the right shoulder were obtained. Comparison: None available at the time of this dictation. FINDINGS: There is no evidence of an acute fracture. Degenerative changes are seen in the glenohumeral joint. The overlying soft tissues are unremarkable. The visualized portions of the lungs are clear. IMPRESSION: Degenerative changes without evidence of acute abnormality. ACT 112: Negative or not required by law. Electronically signed by: Jay Ricketts M.D. 09/05/2023 1:55 PM Knee X-Ray 09/05/23 12:43 XR knee RT 3V CLINICAL HISTORY: fell onto BKA COMPARISON: CTA with lower extremity runoff July 12, 2023. FINDINGS: There are postoperative findings consistent with a right below-knee amputation. No fractures are present. There is no right knee joint effusion. Extensive vascular calcification is incidentally noted. IMPRESSION: Status post right below knee amputation. No fractures. ACT 112: Negative or not required by law. Electronically signed by: Biju Lr M.D. 09/05/2023 2:02 PM Chest X-Ray 09/05/23 14:35 SINGLE VIEW CHEST CLINICAL HISTORY: Fall. FINDINGS: An AP, portable, upright chest radiograph is compared to study dated 07/30/2023. The examination is degraded by portable technique and apical lordotic positioning. The patient is status post midline sternotomy. A 2-lead cardiac AICD is unchanged in position. The heart is enlarged noting atherosclerotic calcification of the thoracic aorta. There is prominence of the pulmonary vasculature. Emphysema and chronic interstitial thickening is similar to previous. There is bibasilar scarring/atelectasis. No airspace consolidation or large pleural effusion is identified. No pneumothorax is seen. The skeletal structures are osteopenic. The bony thorax is grossly intact. IMPRESSION: 1. Cardiomegaly and AICD with prominence of the pulmonary vasculature. Correlate clinically for evidence of fluid overload/congestive change. 2. Emphysema. 3. No airspace consolidation or pleural effusion is identified. ACT 112: Negative or not required by law. Electronically signed by: Gui Mendoza M.D. 09/05/2023 3:22 PM Discharge Plan Visit Data Chief Complaint: Fall ED Provider: Hardeep Colmenares Discharge Problem: Dehiscence of wound, Chronic HFrEF (heart failure with reduced ejection fraction), Right shoulder pain, Fall Patient Disposition: Admitted As Inpatient Discharge Instructions Interventions: ED Discharge Assessment Last Done: 09/05/23 14:58 Discharge Problem: Right shoulder pain Qualifiers: Chronicity: acute Qualified Code(s): M25.511 - Pain in right shoulder Fall Qualifiers: Encounter type: initial encounter Qualified Code(s): W19.XXXA - Unspecified fall, initial encounter
[2023-09-05] MEDS: ceFAZolin 2000MG 2,000 MG/15 ML SYR IV STA (12:49)
[2023-09-05] MEDS: MoRPHine SULFATE 10 MG/ML CARP/VIAL IV STA (12:49)
[2023-09-05 13:11] LABS: Basophils # (auto) 0.04 K/uL (0.00-0.20); Basophils % (auto) 0.3 %; Eosinophils # (auto) 0.07 K/uL (0.00-0.50); Eosinophils % (auto) 0.6 %; Hematocrit (blood only) 38.9 % (42.0-52.0); Hemoglobin 12.6 g/dl (14.0-18.0); Immature Granulocytes # (auto) 0.09 K/uL (0.01-0.20); Immature Granulocytes % (auto) 0.8 %; Lymphocytes # (auto) 3.23 K/uL (1.20-3.40); Lymphocytes % (auto) 28.1 %; Mean Corpuscular Hemoglobin 33.2 pg (25.0-34.0); Mean Corpuscular Hgb Conc 32.4 g/dL (32.0-36.0); Mean Corpuscular Volume 102.4 fL (80.0-100.0); Mean Platelet Volume 10.9 fL (9.4-12.4); Monocytes # (auto) 0.78 K/uL (0.11-0.59); Monocytes % (auto) 6.8 %; Neutrophils % (auto) 63.4 %; Platelet Count 279 K/uL (130-400); RDW Coefficient of Variation 16.4 % (11.5-14.5); RDW Standard Deviation 61.8 fL (36.4-46.3); White Blood Count 11.51 K/ul (4.8-10.8)
[2023-09-05 13:25] LABS: Albumin Globulin Ratio 1.3 (0.9-2); Albumin Level 3.5 gm/dl (3.4-5.0); BUN Creatinine Ratio 29.2 (10-20); Bilirubin,Total 0.7 mg/dl (0.2-1.0); Calcium 8.7 mg/dl (8.6-10.3); Creatinine Clr Calc Pharmacy 48.7 ml/min; Est GFR (African American) 62.3 ml/min; Est GFR (Non-African American) 53.8 ml/min; Globulin 2.6 gm/dl (2.5-4.0); Potassium 3.8 mmol/L (3.5-5.1); Total Protein 6.1 gm/dl (6.0-8.3)
[2023-09-05 13:34] LABS: INR 1.1 (0.9-1.1); Partial Thromboplastin Ratio 1.1; Partial Thromboplastin Time 29 Seconds (21-31); Prothrombin Time 11.7 Seconds (9.0-12.0)
[2023-09-05 13:39] LABS: Thyroid Stimulating Hormone 2.439 uIu/ml (0.300-4.500)
--- NOTE | 2023-09-05 13:56 | XRay Report ---
XR shoulder RT min 2V routine CLINICAL HISTORY: fall, shoulder pain TECHNIQUE: 3 views of the right shoulder were obtained. Comparison: None available at the time of this dictation. FINDINGS: There is no evidence of an acute fracture. Degenerative changes are seen in the glenohumeral joint. T he overlying soft tissues are unremarkable. The visualized portions of the lungs are clear. IMPRESSION: Degenerative changes without evidence of acute abnormality. ACT 112: Negative or not required by law. Electronically signed by: Jay Ricketts M.D. 09/05/2023 1:55 PM
--- NOTE | 2023-09-05 14:04 | XRay Report ---
XR knee RT 3V CLINICAL HISTORY: fell onto BKA COMPARISON: CTA with lower extremity runoff July 12, 2023. FINDINGS: There are postoperative findings consistent with a right below-knee amputation. No fractur es are present. There is no right knee joint effusion. Extensive vascular calcification is incidental ly noted. IMPRESSION: Status post right below knee amputation. No fractures. ACT 112: Negative or not required by law. Electronically signed by: Biju Lr M.D. 09/05/2023 2:02 PM
--- NOTE | 2023-09-05 14:15 | History & Physical Report ---
Date of Service September 05, 2023 Assessment & Plan (1) Wound dehiscence: Plan: -Admit to med/tele on pulse oximetry -Currently hemodynamically stable, stable on his baseline 3L NC, and non-toxic appearing -Patient underwent right BKA with Dr. Worrell on 07/26/23 for recurrent right diabetic foot infections -Had been recovering well at rehab, until he sustained a fall this am while trying to transfer from his bed to his wheelchair -Patient sustained dehiscence of his right BKA wound, has been wrapped by ED staff -Unfortunately, Dr. Worrell will not be back in town until 09/10/23 >ED spoke with Orthopedic Surgery who agreed to take the patient to the OR this afternoon for wound cleaning and repair -Wound care nurse consult placed -S/P one dose of Cephalexin in the ED, we will continue with Unasyn for now as patient was reportedly on a 10 day course of Levaquin for possible infection at the surgical site -Will obtain blood cultures and MRSA swab on admission -Continue NPO status until after his procedure -Pain control with scheduled tylenol and prn Dilaudid -Will obtain Type/screen in case he requires transfusion during this admission -Will plan to hold HS dose of Eliquis tonight and can plan to resume tomorrow if stable from a bleeding perspective -AM CBC, CMP, mag, PT/INR (2) Fall: Plan: -Mechanical fall due to his wheelchair tipping over while he was trying to transfer -Did not his his head or lose consciousness -Xray of the right shoulder and right knee were negative for acute trauma -Will obtain CXR for further evaluation -No abnormalities noted on inspection of the patient's nephrostomy tube insertion site, tube itself, and bag. >Patient confirms that it continues to drain urine since his fall >Will hold off on abdominal imaging at this time as he is without pain or trauma in the abdomen (3) Chronic HFrEF (heart failure with reduced ejection fraction): Plan: -Currently euvolemic on exam -Will hold off on IV fluids at this time with his LVEF of ~25% -Will plan to continue home lasix tomorrow -Will follow up on CXR ordered on admission (4) Nephrostomy status: Plan: -Placed for obstruction/hydronephrosis due to scarring obstructing the left ureter from previous cancer -Appears to be functioning well, renal function is stable -Monitor output QSE -If any concerns would obtain CT oft he abd/pelvis for further evaluation (5) Right shoulder pain: Plan: -Patient has increased right shoulder pain and decreased ROM compared to baseline since his fall -Sensation and radial pulse are intact -No acute trauma on xray -Continue with pain control for now -If not improving could continue workup with CT and/or MRI -PT/OT consults placed (6) Atrial fibrillation: Plan: -Stable -Will continue Carvedilol -Hold evening dose of Eliquis tonight -Can resume Eliquis tomorrow if stable from a bleeding perspective (7) Chronic respiratory failure with hypoxia: Plan: -Stable -Continue 3L NC at all times -Incentive spirometry (8) CAD (coronary artery disease): Plan: -Continue aspirin, statin, and carvedilol (9) CLL (chronic lymphocytic leukemia): Plan: -CBC is stable today -Continue to follow up with heme/onc on discharge (10) Diabetes mellitus, type 2: Plan: -Hold Jardiance -Monitor BSG q6h while NPO, goal is 110-160 -Start CF 50, CR 15 q6h -Hold basal insulin today as we do not know how much he will eat after going to the OR this afternoon -Adjust regimen as needed Plan The patient was discussed with Dr. Lindsay at the time of the admission History of Present Illness Chief Complaint: Fall, right BKA wound dehiscence Primary Care Provider: Corey Rodriguez is a 73 year old male with a PMH significant for recurrent right foot infections S/P right BKA on 07/26/[address] Worrell, atrial fibrillation (on Eliquis), chronic respiratory failure on 3L NC at all times, Nephrostomy status, CAD, ischemic cardiomyopathy S/P ICD placement in 2021, CLL, bladder carcinoma, DMII, and PAD who presented to the [facility] ED via EMS on 09/05/23 due to right BKA site dehiscence and right shoulder pain after sustaining a fall at home. The patient reportedly was trying to transfer from his bed to a chair when he slipped and fell to the floor. He was noted to be tachycardic with a HR of 102 but otherwise stable on arrival. Labs were significant for an improving leukocytosis of 11, down from 18 as of 07/31/23 and were otherwise unremarkable. Xrays of the right knee and shoulder were negative for acute findings. Prior to admission the patient was given a dose of Cefazolin and 6 mg IV morphine. At the time of the exam the patient was sitting in bed in no acute distress. He states that he has been residing at [facility] since his BKA last month. This am he was trying to get into his wheelchair from his bed. He states that the wheels of his chair locked, causing the chair to tip over and him to fall to the ground. He landed on his right side, he did not hit his head or lose consciousness. His only pain since the fall is in his right shoulder and right BKA site. He notes that he had a previous injury to his right rotator cuff, but he currently has much less mobility in the right shoulder after his fall compared to his baseline due to pain. He did have all his am meds, including his am dose of Eliquis. Denies headache, changes in vision, hearing, taste, smell, chest pain, cough, increased SOB from baseline, abd pain, pain at nephrostomy insertion, nausea, vomiting, diarrhea, melena. He is a full code and his would make his medical decisions for him if he cannot make them himself. Please refer to Dr. Lindsay's attestation for any changes to the treatment plan Allergies Allergy/AdvReac Type Severity Reaction Status Date / Time enalapril Allergy Severe Angioedema Verified 09/05/23 15:24 brimonidine [From Combigan] Allergy Intermediate Hives Verified 09/05/23 15:24 timolol Allergy Intermediate Hives Verified 09/05/23 15:24 Home Medications Medication Instructions Recorded Confirmed Type aspirin 81 mg tablet,delayed 81 mg PO QAM 11/01/22 07/17/23 History release atorvastatin 40 mg tablet 40 mg PO PM 11/01/22 07/17/23 History budesonide 160 mcg-glycopyr 9 2 inh inhalation BID 11/01/22 07/17/23 History mcg-formot 4.8 mcg/actuation HFA inhaler (Breztri Aerosphere) calcium carbonate 600 mg PO QAM 11/01/22 07/17/23 History carvedilol 3.125 mg tablet 3.125 mg PO BID 11/01/22 07/17/23 History cyanocobalamin (vitamin B-12) 1,000 mcg PO QAM 11/01/22 07/17/23 History 1,000 mcg tablet empagliflozin 10 mg tablet 10 mg PO QAM 11/01/22 07/17/23 History (Jardiance) ferrous sulfate 27 mg iron tablet 27 mg PO QAM 11/01/22 07/17/23 History furosemide 40 mg tablet (Lasix) 40 mg PO BID 11/01/22 07/17/23 History hydralazine 25 mg tablet 25 mg PO TID 11/01/22 07/17/23 History nitroglycerin 0.4 mg sublingual 0.4 mg sublingual UD PRN Chest Pain 11/01/22 07/17/23 History tablet potassium chloride 20 mEq 20 meq PO QAM 11/01/22 07/17/23 History tablet,extended release psyllium husk 3.4 gram/5.4 gram 1 tbsp PO QAM 11/01/22 07/17/23 History oral powder (Metamucil) dimenhydrinate 50 mg tablet 50 mg PO Q8H PRN Nausea 12/14/22 07/17/23 History (Dramamine) apixaban 5 mg tablet (Eliquis) 5 mg PO BID 05/03/23 07/17/23 History acetaminophen 500 mg tablet 1,000 mg PO Q6H PRN Pain 05/09/23 07/17/23 History multivitamin 1 tab PO QAM 07/09/23 07/17/23 History Past Med/Surg History Problem List Right shoulder pain Chronic HFrEF (heart failure with reduced ejection fraction) Constipated Valvular heart disease CKD (chronic kidney disease) stage 3, GFR 30-59 ml/min Nephrostomy status Osteoarthritis of left knee Left knee pain Gangrene of right foot Diabetic foot ulcer (Acute) Cellulitis of right lower extremity Elevated troponin Wound of right foot Edema, peripheral (Acute) Atrial fibrillation On Eliquis s/p ablation 2017 Dysuria Pelvic lymphadenopathy Hydronephrosis, left Acute gout Encounter for pre-operative examination Gross hematuria Bladder carcinoma bcg treatments Medical History Wound dehiscence Fall Peripheral arterial disease Chronic respiratory failure with hypoxia ICD (implantable cardioverter-defibrillator) in place 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 Ortega Dyslipidemia HTN (hypertension) History of gout Hard of hearing No hearing aids Myocardial Infarction 1996 & 2016 Chronic obstructive pulmonary disease 3L via continuous Surgical History S/P below knee amputation History of bladder surgery TURBT History of anesthesia reaction slow to wake History of bone marrow biopsy Right node Lymph node biopsy (04/23/23)- CLL/SLL, negative for metastatic carcinoma History of colonoscopy H/O wisdom tooth extraction History of tonsillectomy History of adenoidectomy History of cataract surgery bilateral S/P ICD (internal cardiac defibrillator) procedure Implanted 2021>last checked February 2022 ? type S/P ablation of atrial fibrillation S/P angioplasty no stents S/P CABG x 2 2016 Family History Other No family history of adverse response to anesthesia Social History Smoking Status: Never smoker Tobacco Type: Cigarettes Second Hand Exposure: No; Do You Dip or Chew Tobacco: No; Hx Alcohol Use: Yes Hx Substance Use: No Preferred Language: Syriac Communication Ability: Effective Record Changer Tester Required: No Beliefs That Will Affect Care: Spiritual Current Living Situation: Spouse Feels Safe at Home: Yes Assistive Devices: Oxygen - Continuous Physical Exam Physical Exam: Physical Exam: General: In no acute distress, stated age, chronically ill appearing but non- toxic HEENT: Normocephalic, atraumatic, no scleral icterus, pupils around round, symmetrical, and reactive to light, moist mucus membranes, trachea midline, no thyromegaly Chest/Pulm: No respiratory distress, symmetrical chest expansion, clear breat h sounds throughout Cardiac: irregular rate and rhythm, no murmurs noted Abdomen: Negative for ascites and bruising, normoactive bowel sounds, soft, non-tender to palpation throughout : Left nephrostomy bag is currently draining pink-tinged urine with red sediment, no signs of drainage or infection noted at the nephrostomy tube insertion site Musculoskeletal: Patient with significantly reduce ROM of the right shoulder due to pain, no crepitus or step off on palpation, able to flex right elbow/wrist without issue >Right BKA sight is currently wrapped by the ED staff, no signs of drainage at this time (see ED note for images of injury on arrival) Extremities: Radial, left dorsalis pedis, and left posterior tibial pulses are intact and symmetrical, no edema noted in the LLE Skin: See ED provider's note for images of wound dehiscence prior to bandaging Neuro: Alert and oriented to person, place, month, year, and president, no focal defects,no tremors noted Psych: No acute distress, calm and cooperative during the exam Results & Data Results & Data Vital Signs (Past 12 Hours) Vital Signs Temp Pulse Resp BP Pulse Ox O2 Del Method O2 Flow Rate 09/05/23 11:37 36.6 C 102 H 18 131/83 95 Nasal Cannula 3 Laboratory Results Abnormal lab results 09/05/23 Range/Units 12:33 WBC 11.51 H (4.8-10.8) K/ul RBC 3.80 L (4.70-6.10) M/uL Hgb 12.6 L (14.0-18.0) g/dl Hct 38.9 L (42.0-52.0) % MCV 102.4 H (80.0-100.0) fL RDW Std Deviation 61.8 H (36.4-46.3) fL RDW Coeff of Sharmaine 16.4 H (11.5-14.5) % Neut # (Auto) 7.30 H (1.40-6.50) K/uL [place] # (Auto) 0.78 H (0.11-0.59) K/uL Carbon Dioxide 35 H (21-32) mmol/L BUN 38 H (6-23) mg/dl BUN/Creatinine Ratio 29.2 H (10-20) Glucose 127 H (70-99(Fasting)) mg/dl Diagnostic Findings Shoulder X-Ray 09/05/23 12:26 XR shoulder RT min 2V routine CLINICAL HISTORY: fall, shoulder pain TECHNIQUE: 3 views of the right shoulder were obtained. Comparison: None available at the time of this dictation. FINDINGS: There is no evidence of an acute fracture. Degenerative changes are seen in the glenohumeral joint. The overlying soft tissues are unremarkable. The visualized portions of the lungs are clear. IMPRESSION: Degenerative changes without evidence of acute abnormality. ACT 112: Negative or not required by law. Electronically signed by: Jay Ricketts M.D. 09/05/2023 1:55 PM Knee X-Ray 09/05/23 12:43 XR knee RT 3V CLINICAL HISTORY: fell onto BKA COMPARISON: CTA with lower extremity runoff July 12, 2023. FINDINGS: There are postoperative findings consistent with a right below-knee amputation. No fractures are present. There is no right knee joint effusion. Extensive vascular calcification is incidentally noted. IMPRESSION: Status post right below knee amputation. No fractures. ACT 112: Negative or not required by law. Electronically signed by: Biju Lr M.D. 09/05/2023 2:02 PM ECG Additional Comments: Atrial flutter with variable A-V block Left ventricular hypertrophy with QRS widening and repolarization abnormality ( [place] product ) Abnormal ECG When compared with ECG of 17-JUL-2023 14:53, Atrial flutter has replaced Atrial fibrillation Criteria for Inferior infarct are no longer Present Nonspecific T wave abnormality now evident in Inferior leads Nonspecific T wave abnormality, worse in Lateral leads Code Status & VTE Plan Code Status Full code VTE Prophylaxis Plan VTE Prophylaxis will be ordered: Yes Supervising Physician Co-Signing Physician Notes Patient was seen and examined presents to the hospital after fall, recent right BKA, wound dehiscence due to mechanical fall, patient is scheduled for OR with orthopedist hold Eliquis pain control antibiotics, was treated for wound infection before fall continue other home meds PG Care Time/CCT Total # of Minutes Spent Total Time Spent with Patient: Total time spent is greater than 50% in coordination of care (as documented) at patient's floor/unit and/or counseling patient: Coding [place] [address] INT INP/OBS CARE 3/75MIN Patient Type Established Medical Decision Making High Complexity Diagnoses Wound dehiscence T81.30XA Fall W19.XXXA Chronic HFrEF (heart failure with reduced ejection fraction) I50.22 Nephrostomy status Z93.6 Right shoulder pain M25.511 Atrial fibrillation I48.91 Chronic respiratory failure with hypoxia J96.11 CAD (coronary artery disease) I25.10 CLL (chronic lymphocytic leukemia) C91.10 Diabetes mellitus, type 2 E11.9
[2023-09-05] MEDS ORDERED: NALOXONE HCL 0.4 MG/1 ML VIAL/CARP IV PRN ×2 (14:32→19:31)
[2023-09-05] MEDS ORDERED: GLUCOSE 40% GEL 15 GM TUBE PO PRN (14:33)
[2023-09-05] MEDS ORDERED: GLUCAGON FOR INJ 1 MG VIAL SQ PRN (14:33)
[2023-09-05] MEDS ORDERED: CARBOHYDRATES FOR HYPOGLYCEMIA PO PRN (14:33)
[2023-09-05] MEDS ORDERED: DEXTROSE 50% 50 ML SYRINGE IV PRN (14:33)
[2023-09-05] MEDS ORDERED: GLUCOSE 10 TAB/TUBE PO PRN (14:33)
[2023-09-05] MEDS: ACETAMINOPHEN 1,000 MG/100 ML VIAL IV STA (14:48)
--- NOTE | 2023-09-05 15:23 | XRay Report ---
SINGLE VIEW CHEST CLINICAL HISTORY: Fall. FINDINGS: An AP, portable, upright chest radiograph is compared to study dated 07/30/2023. The examina tion is degraded by portable technique and apical lordotic positioning. The patient is status post mi dline sternotomy. A 2-lead cardiac AICD is unchanged in position. The heart is enlarged noting athero sclerotic calcification of the thoracic aorta. There is prominence of the pulmonary vasculature. Emph ysema and chronic interstitial thickening is similar to previous. There is bibasilar scarring/atelect asis. No airspace consolidation or large pleural effusion is identified. No pneumothorax is seen. The skeletal structures are osteopenic. The bony thorax is grossly intact. IMPRESSION: 1. Cardiomegaly and AICD with prominence of the pulmonary vasculature. Correlate clinically for evide nce of fluid overload/congestive change. 2. Emphysema. 3. No airspace consolidation or pleural effusion is identified. ACT 112: Negative or not required by law. Electronically signed by: Gui Mendoza M.D. 09/05/2023 3:22 PM
--- NOTE | 2023-09-05 15:38 | Anesthesiology Consultation ---
Date of Service September 05, 2023 Assessment & Plan (1) Encounter for pre-operative examination: Chart Review Chart Review: Acceptable Risk for Surgery and Patient NOT seen in Pre Admission Testing Consults Requested none History Surgery Operation Date: 09/05/23 09:25 Proposed Procedures p Incision, Drainage and Closure of Right Below Knee Amputation - Monico Jordan MD Height/Weight Height: 5 ft 6 in Weight: 77.1 kg Allergies Allergy/AdvReac Type Severity Reaction Status Date / Time enalapril Allergy Severe Angioedema Verified 09/05/23 15:24 brimonidine [From Combigan] Allergy Intermediate Hives Verified 09/05/23 15:24 timolol Allergy Intermediate Hives Verified 09/05/23 15:24 Medications Home Medications Medication Instructions Recorded Confirmed Last Taken aspirin 81 mg tablet,delayed 81 mg PO QAM 11/01/22 07/17/23 07/17/23 release atorvastatin 40 mg tablet 40 mg PO PM 11/01/22 07/17/23 07/16/23 budesonide 160 mcg-glycopyr 9 2 inh inhalation BID 11/01/22 07/17/23 07/17/23 mcg-formot 4.8 mcg/actuation HFA inhaler (Breztri Aerosphere) calcium carbonate 600 mg PO QAM 11/01/22 07/17/23 07/17/23 carvedilol 3.125 mg tablet 3.125 mg PO BID 11/01/22 07/17/23 07/17/23 cyanocobalamin (vitamin B-12) 1,000 mcg PO QAM 11/01/22 07/17/23 07/17/23 1,000 mcg tablet empagliflozin 10 mg tablet 10 mg PO QAM 11/01/22 07/17/23 07/17/23 (Jardiance) ferrous sulfate 27 mg iron tablet 27 mg PO QAM 11/01/22 07/17/23 07/17/23 furosemide 40 mg tablet (Lasix) 40 mg PO BID 11/01/22 07/17/23 07/17/23 hydralazine 25 mg tablet 25 mg PO TID 11/01/22 07/17/23 07/17/23 nitroglycerin 0.4 mg sublingual 0.4 mg sublingual UD PRN Chest Pain 11/01/22 07/17/23 Unknown tablet potassium chloride 20 mEq 20 meq PO QAM 11/01/22 07/17/23 07/17/23 tablet,extended release psyllium husk 3.4 gram/5.4 gram 1 tbsp PO QAM 11/01/22 07/17/23 07/17/23 oral powder (Metamucil) dimenhydrinate 50 mg tablet 50 mg PO Q8H PRN Nausea 12/14/22 07/17/23 05/09/23 04:00 (Dramamine) apixaban 5 mg tablet (Eliquis) 5 mg PO BID 05/03/23 07/17/23 07/17/23 acetaminophen 500 mg tablet 1,000 mg PO Q6H PRN Pain 05/09/23 07/17/23 05/08/23 19:00 multivitamin 1 tab PO QAM 07/09/23 07/17/23 07/17/23 Past Medical History Medical History Wound dehiscence Fall Peripheral arterial disease Chronic respiratory failure with hypoxia ICD (implantable cardioverter-defibrillator) in place 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, Implant date 10/05/2021 Ischemic cardiomyopathy ICD 09/2021 CAD (coronary artery disease) CABG x 2 07/2016 Angioplasty 1996 CLL (chronic lymphocytic leukemia) known hx x years Diabetes mellitus, type 2 NIDDM SOB (shortness of breath) CKD (chronic kidney disease) History of cellulitis Right Great toe- completed antibiotics Swelling and erythema significantly improved but still has mild pain (improved from previous) CHF (congestive heart failure) followed by Dr. Ortega Dyslipidemia HTN (hypertension) History of gout Hard of hearing No hearing aids Myocardial Infarction 1996 & 2016 Chronic obstructive pulmonary disease 3L via continuous Nephrostomy status: Plan: -Placed for obstruction/hydronephrosis due to scarring obstructing the left ureter from previous cancer -Appears to be functioning well, renal function is stable hronic respiratory failure with hypoxia: Plan: -Stable -Continue 3L NC at all times Past Family History Family History Other No family history of adverse response to anesthesia Past Surgical History Surgical History S/P below knee amputation History of bladder surgery TURBT History of anesthesia reaction slow to wake History of bone marrow biopsy Right node Lymph node biopsy (04/23/23)- CLL/SLL, negative for metastatic carcinoma History of colonoscopy H/O wisdom tooth extraction History of tonsillectomy History of adenoidectomy History of cataract surgery bilateral S/P ICD (internal cardiac defibrillator) procedure Implanted 2021>last checked February 2022 ? type S/P ablation of atrial fibrillation S/P angioplasty no stents S/P CABG x 2 2016 Social History Smoking Status: Never smoker tobacco type: cigarettes Do You Dip or Chew Tobacco: No Hx Alcohol Use: Yes Hx Substance Use: No substance use type: does not use Physical Exam Vital Signs Last Vital Signs Temp 36.5 C 09/05/23 16:59 Pulse 101 H 09/05/23 16:59 Resp 20 09/05/23 16:59 BP 104/90 09/05/23 16:59 Pulse Ox 95 09/05/23 16:59 O2 Del Method Nasal Cannula 09/05/23 16:59 O2 Flow Rate 3 09/05/23 16:59 Testing Laboratory Results 09/05/23 12:33 09/05/23 12:33 PT 11.7 Seconds (9.0-12.0) 09/05/23 12:33 INR 1.1 (0.9-1.1) 09/05/23 12:33 APTT 29 Seconds (21-31) 09/05/23 12:33 Blood Type O Positive 09/05/23 14:48 Antibody Screen NEGATIVE 09/05/23 14:48 09/05/23 16:59 POC Glucose 121 H Electrocardiogram Date: 09/05/23 HR 91.Atrial flutter with variable A-V block Left ventricular hypertrophy with QRS widening and repolarization abnormality ( [place] product ) Abnormal ECG When compared with ECG of 17-JUL-2023 14:53, Atrial flutter has replaced Atrial fibrillation Criteria for Inferior infarct are no longer Present Nonspecific T wave abnormality now evident in Inferior leads Nonspecific T wave abnormality, worse in Lateral leads Chest X-Ray Date: 09/05/23 SINGLE VIEW CHEST CLINICAL HISTORY: Fall. FINDINGS: An AP, portable, upright chest radiograph is compared to study dated 07/30/2023. The examination is degraded by portable technique and apical lordotic positioning. The patient is status post midline sternotomy. A 2-lead cardiac AICD is unchanged in position. The heart is enlarged noting atherosclerotic calcification of the thoracic aorta. There is prominence of the pulmonary vasculature. Emphysema and chronic interstitial thickening is similar to previous. There is bibasilar scarring/atelectasis. No airspace consolidation or large pleural effusion is identified. No pneumothorax is seen. The skeletal structures are osteopenic. The bony thorax is grossly intact. IMPRESSION: 1. Cardiomegaly and AICD with prominence of the pulmonary vasculature. Correlate clinically for evidence of fluid overload/congestive change. 2. Emphysema. 3. No airspace consolidation or pleural effusion is identified. Echocardiogram Date: 10/25/22 Moderate asymmetric septal LVH without LVOT obstruction. LV function: severely reduced with segmental abnormalities as described above. EF 25-30%. Mild AI, severe mitral insufficiency, moderate to severe tricuspid valve insufficiency and trace pulmonic valve insufficiency. Moderate pulm HTN
--- NOTE | 2023-09-05 15:58 | Orthopedic Consultation ---
Date of Consultation September 05, 2023 Assessment & Plan (1) Wound dehiscence: Will take to OR later today with I&D of Right BKA stump/open wound with surgical closure Reviewed consent with patient. He will sign when Dr. Jordan present [facility]. Will contact Dr. Melara 20-30 before surgery for reversal of eliquis Admitted per medicine service Has been NPO since 7 AM History of Present Illness Reason for Consultation: Right BKA wound dehiscence Requesting Physician: Dr. Monico Jordan History of Present Illness Patient presents due to concern for fall while translating and was noted to have an open right BKA wound dehiscence. Patient complains of phantom pain in the missing Right lower leg. Patient's wound was placed back into a position of function noted and no longer be nongaping. The patient did have nonadherent petroleum gauze placed over the wound site wrapped in Kerlix stockinette and 2 Omid wraps. IV was established and blood work was obtained patient was ordered IV morphine plain films completed of the right shoulder as well as the right knee and tibia. Patient with a known history of A-fib on Eliquis CAD he and right foot wound. Patient did have a right BKA completed by Dr. Worrell during the time of his inpatient stay. Patient with known history of chronic respiratory failure with hypoxia and COPD baseline 3 L nasal cannula. Also history of ischemic cardiomyopathy status post ICD constipation CAD EF 25 to 30% status post ICD at [place]. Allergies Allergy/AdvReac Type Severity Reaction Status Date / Time enalapril Allergy Severe Angioedema Verified 09/05/23 15:24 brimonidine [From Sunita] Allergy Intermediate Hives Verified 09/05/23 15:24 timolol Allergy Intermediate Hives Verified 09/05/23 15:24 Home Medications Medication Instructions Recorded Confirmed Type aspirin 81 mg tablet,delayed 81 mg PO QAM 11/01/22 07/17/23 History release atorvastatin 40 mg tablet 40 mg PO PM 11/01/22 07/17/23 History budesonide 160 mcg-glycopyr 9 2 inh inhalation BID 11/01/22 07/17/23 History mcg-formot 4.8 mcg/actuation HFA inhaler (Breztri Aerosphere) calcium carbonate 600 mg PO QAM 11/01/22 07/17/23 History carvedilol 3.125 mg tablet 3.125 mg PO BID 11/01/22 07/17/23 History cyanocobalamin (vitamin B-12) 1,000 mcg PO QAM 11/01/22 07/17/23 History 1,000 mcg tablet empagliflozin 10 mg tablet 10 mg PO QAM 11/01/22 07/17/23 History (Jardiance) ferrous sulfate 27 mg iron tablet 27 mg PO QAM 11/01/22 07/17/23 History furosemide 40 mg tablet (Lasix) 40 mg PO BID 11/01/22 07/17/23 History hydralazine 25 mg tablet 25 mg PO TID 11/01/22 07/17/23 History nitroglycerin 0.4 mg sublingual 0.4 mg sublingual UD PRN Chest Pain 11/01/22 07/17/23 History tablet potassium chloride 20 mEq 20 meq PO QAM 11/01/22 07/17/23 History tablet,extended release psyllium husk 3.4 gram/5.4 gram 1 tbsp PO QAM 11/01/22 07/17/23 History oral powder (Metamucil) dimenhydrinate 50 mg tablet 50 mg PO Q8H PRN Nausea 12/14/22 07/17/23 History (Dramamine) apixaban 5 mg tablet (Eliquis) 5 mg PO BID 05/03/23 07/17/23 History acetaminophen 500 mg tablet 1,000 mg PO Q6H PRN Pain 05/09/23 07/17/23 History multivitamin 1 tab PO QAM 07/09/23 07/17/23 History Patient History Medical History Wound dehiscence Fall Peripheral arterial disease Chronic respiratory failure with hypoxia ICD (implantable cardioverter-defibrillator) in place 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 Ortega Dyslipidemia HTN (hypertension) History of gout Hard of hearing No hearing aids Myocardial Infarction 1996 & 2017 Chronic obstructive pulmonary disease 3L via continuous Surgical History S/P below knee amputation History of bladder surgery TURBT History of anesthesia reaction slow to wake History of bone marrow biopsy Right node Lymph node biopsy (04/23/23)- CLL/SLL, negative for metastatic carcinoma History of colonoscopy H/O wisdom tooth extraction History of tonsillectomy History of adenoidectomy History of cataract surgery bilateral S/P ICD (internal cardiac defibrillator) procedure Implanted 2021>last checked February 2022 ? type S/P ablation of atrial fibrillation S/P angioplasty no stents S/P CABG x 2 2016 Family History Other No family history of adverse response to anesthesia Social History Smoking Status: Never smoker Tobacco Type: Cigarettes Second Hand Exposure: No; Do You Dip or Chew Tobacco: No; Hx Alcohol Use: Yes Hx Substance Use: No Preferred Language: Colombian Communication Ability: Effective Sales Audit Clerk Required: No Beliefs That Will Affect Care: Spiritual Current Living Situation: Spouse Feels Safe at Home: Yes Assistive Devices: Oxygen - Continuous Review of Systems Review of Systems: All systems reviewed & are unremarkable except as noted in Subjective Physical Exam Physical Exam: Right LE: open area of stump with tibial exposure and mild venous bleeding. Knee flexion to 90 degrees. Able to detect light sensation to touch in stump. Results & Data Vital Signs (Past 12 Hours) Vital Signs Temp Pulse Resp BP Pulse Ox O2 Del Method O2 Flow Rate 09/05/23 14:30 99 H 21 94 09/05/23 14:30 130/86 09/05/23 14:12 102 H 26 H 93 09/05/23 14:12 130/81 09/05/23 14:11 102 H 37 H 94 09/05/23 13:00 100 H 17 95 09/05/23 13:00 124/84 09/05/23 12:38 99 H 18 09/05/23 12:26 95 3 09/05/23 11:37 36.6 C 102 H 18 131/83 95 Nasal Cannula 3 Diagnostic Findings Laboratory Results WBC 11.51 K/ul (4.8-10.8) H 09/05/23 12:33 RBC 3.80 M/uL (4.70-6.10) L 09/05/23 12:33 Hgb 12.6 g/dl (14.0-18.0) L 09/05/23 12:33 Hct 38.9 % (42.0-52.0) L 09/05/23 12:33 MCV 102.4 fL (80.0-100.0) H 09/05/23 12:33 MCH 33.2 pg (25.0-34.0) 09/05/23 12:33 MCHC 32.4 g/dL (32.0-36.0) 09/05/23 12:33 RDW Std Deviation 61.8 fL (36.4-46.3) H 09/05/23 12:33 RDW Coeff of Sharmaine 16.4 % (11.5-14.5) H 09/05/23 12:33 Plt Count 279 K/uL (130-400) 09/05/23 12:33 MPV 10.9 fL (9.4-12.4) 09/05/23 12:33 Immature Gran % (Auto) 0.8 % 09/05/23 12:33 Neut % (Auto) 63.4 % 09/05/23 12:33 Lymph % (Auto) 28.1 % 09/05/23 12:33 Eagle % (Auto) 6.8 % 09/05/23 12:33 Eos % (Auto) 0.6 % 09/05/23 12:33 Baso % (Auto) 0.3 % 09/05/23 12:33 Neut # (Auto) 7.30 K/uL (1.40-6.50) H 09/05/23 12:33 Lymph # (Auto) 3.23 K/uL (1.20-3.40) 09/05/23 12:33 Eagle # (Auto) 0.78 K/uL (0.11-0.59) H 09/05/23 12:33 Eos # (Auto) 0.07 K/uL (0.00-0.50) 09/05/23 12:33 Baso # (Auto) 0.04 K/uL (0.00-0.20) 09/05/23 12:33 Immature Gran # (Auto) 0.09 K/uL (0.01-0.20) 09/05/23 12:33 PT 11.7 Seconds (9.0-12.0) 09/05/23 12:33 INR 1.1 (0.9-1.1) 09/05/23 12:33 APTT 29 Seconds (21-31) 09/05/23 12:33 PTT Ratio 1.1 09/05/23 12:33 Sodium 141 mmol/L (136-145) 09/05/23 12:33 Potassium 3.8 mmol/L (3.5-5.1) 09/05/23 12:33 Chloride 101 mmol/L (98-107) 09/05/23 12:33 Carbon Dioxide 35 mmol/L (21-32) H 09/05/23 12:33 Anion Gap 5 (3-11) 09/05/23 12:33 BUN 38 mg/dl (6-23) H 09/05/23 12:33 Creatinine 1.30 mg/dl (0.6-1.4) 09/05/23 12:33 Est Cr Clr Drug Dosing 48.7 ml/min 09/05/23 12:33 Est GFR ( Amer) 62.3 ml/min 09/05/23 12:33 Est GFR (Non-Af Amer) 53.8 ml/min 09/05/23 12:33 BUN/Creatinine Ratio 29.2 (10-20) H 09/05/23 12:33 Glucose 127 mg/dl (70-99(Fasting)) H 09/05/23 12:33 Calcium 8.7 mg/dl (8.6-10.3) 09/05/23 12:33 Total Bilirubin 0.7 mg/dl (0.2-1.0) 09/05/23 12:33 AST 22 U/L (13-39) 09/05/23 12:33 ALT 26 U/L (7-52) 09/05/23 12:33 Alkaline Phosphatase 72 U/L (34-104) 09/05/23 12:33 Total Protein 6.1 gm/dl (6.0-8.3) 09/05/23 12:33 Albumin 3.5 gm/dl (3.4-5.0) 09/05/23 12:33 Globulin 2.6 gm/dl (2.5-4.0) 09/05/23 12:33 Albumin/Globulin Ratio 1.3 (0.9-2) 09/05/23 12:33 TSH 2.439 uIu/ml (0.300-4.500) 09/05/23 12:33 Blood Type O Positive 09/05/23 14:48 Antibody Screen NEGATIVE 09/05/23 14:48 Impressions Shoulder X-Ray 09/05/23 12:26 XR shoulder RT min 2V routine CLINICAL HISTORY: fall, shoulder pain TECHNIQUE: 3 views of the right shoulder were obtained. Comparison: None available at the time of this dictation. FINDINGS: There is no evidence of an acute fracture. Degenerative changes are seen in the glenohumeral joint. The overlying soft tissues are unremarkable. The visualized portions of the lungs are clear. IMPRESSION: Degenerative changes without evidence of acute abnormality. ACT 112: Negative or not required by law. Electronically signed by: Jay Ricketts M.D. 09/05/2023 1:55 PM Knee X-Ray 09/05/23 12:43 XR knee RT 3V CLINICAL HISTORY: fell onto BKA COMPARISON: CTA with lower extremity runoff July 12, 2023. FINDINGS: There are postoperative findings consistent with a right below-knee amputation. No fractures are present. There is no right knee joint effusion. Extensive vascular calcification is incidentally noted. IMPRESSION: Status post right below knee amputation. No fractures. ACT 112: Negative or not required by law. Electronically signed by: Biju Lr M.D. 09/05/2023 2:02 PM Chest X-Ray 09/05/23 14:35 SINGLE VIEW CHEST CLINICAL HISTORY: Fall. FINDINGS: An AP, portable, upright chest radiograph is compared to study dated 07/30/2023. The examination is degraded by portable technique and apical lordotic positioning. The patient is status post midline sternotomy. A 2-lead cardiac AICD is unchanged in position. The heart is enlarged noting atherosclerotic calcification of the thoracic aorta. There is prominence of the pulmonary vasculature. Emphysema and chronic interstitial thickening is similar to previous. There is bibasilar scarring/atelectasis. No airspace consolidation or large pleural effusion is identified. No pneumothorax is seen. The skeletal structures are osteopenic. The bony thorax is grossly intact. IMPRESSION: 1. Cardiomegaly and AICD with prominence of the pulmonary vasculature. Correlate clinically for evidence of fluid overload/congestive change. 2. Emphysema. 3. No airspace consolidation or pleural effusion is identified. ACT 112: Negative or not required by law. Electronically signed by: Gui Mendoza M.D. 09/05/2023 3:22 PM
[2023-09-05] MEDS ORDERED: HYDROmorphone INJ 0.5 MG/0.5 ML SYR IV PRN (16:00)
[2023-09-05] MEDS ORDERED: PROPOFOL IV EMULSION 10 MG/ML 20 ML VIAL IV ONE (16:30)
[2023-09-05] MEDS ORDERED: ONDANSETRON INJ 2 MG/ML 2 ML VIAL ONE (16:30)
[2023-09-05] MEDS ORDERED: LIDOCAINE 2% 2 ML VIAL/AMP(20MG/ML) INFIL ONE (16:30)
[2023-09-05] MEDS ORDERED: fentaNYL citrate PF 100 MCG/2 ML VIAL ONE (16:31)
--- NOTE | 2023-09-05 16:52 | Electrocardiogram Report ---
Test Reason : Blood Pressure : / mmHG Vent. Rate : 091 BPM Atrial Rate : 394 BPM P-R Int : 000 ms QRS Dur : 120 ms QT Int : 396 ms P-R-T Axes : 000 022 149 degrees QTc Int : 487 ms Atrial flutter with variable A-V block Left ventricular hypertrophy with QRS widening and repolarization abnormality Abnormal ECG When compared with ECG of 17-JUL-2023 14:53, Atrial flutter has replaced Atrial fibrillation Criteria for Inferior infarct are no longer Present Confirmed by Corey Baeza ([id number]) on 09/05/2023 4:52:03 PM Referred By: REFERRED SELF Confirmed By:Corey Baeza
[2023-09-05] MEDS ORDERED: fentaNYL citrate PF 100 MCG/2 ML VIAL IV PRN (17:11)
[2023-09-05] MEDS ORDERED: ePHEDrine sulfate 50 MG/ML AMP IV PRN (17:11)
[2023-09-05] MEDS ORDERED: HYDROmorphone INJ 1 MG/ML SYRINGE IV PRN (17:11)
[2023-09-05] MEDS ORDERED: ATROPINE SULFATE 0.1 MG/ML 10ML SYR IV PRN (17:11)
[2023-09-05] MEDS ORDERED: ONDANSETRON INJ 2 MG/ML 2 ML VIAL IV PRN ×2 (17:11→19:31)
[2023-09-05] MEDS: TRANEXAMIC ACID / 0.7% NACL 1,000 MG/100 ML BAG IV SCH (17:43)
[2023-09-05] MEDS: LACTATED RINGER'S 1,000 ML IV SCH (17:44)
[2023-09-05] MEDS ORDERED: PHENYLEPHRINE HCL 10 MG/ML VIAL ONE (18:36)
[2023-09-05] MEDS ORDERED: ROCURONIUM BROMIDE 10 MG/ML 5 ML VIAL IV ONE (18:59)
[2023-09-05] MEDS ORDERED: SUGAMMADEX SODIUM 200 MG/2 ML VIAL IV ONE (19:02)
[2023-09-05] MEDS: BUPIVACAINE 0.5 % 5 MG/1 ML MPF 30ML VIAL ONE (19:13)
[2023-09-05] MEDS: LIDOCAINE 1% LOCAL 20 ML VIAL ONE (19:14)
[2023-09-05] MEDS ORDERED: diphenhydrAMINE 50 MG/ML VIAL IV PRN (19:31)
[2023-09-05] MEDS ORDERED: METOCLOPRAMIDE HCL INJ 5 MG/ML 2 ML VIAL IV PRN (19:31)
[2023-09-05] MEDS ORDERED: ALUMINUM/MAGNESIUM SUSP 30 ML UDC PO PRN (19:31)
[2023-09-05] MEDS ORDERED: PHARMACY GLYCEMIC MGMT CONSULT PRN (19:31)
--- NOTE | 2023-09-05 19:31 | Operative Report ---
Post Operative Report Pre & Post Diagnosis Operation Date: 09/05/23 09:25 Pre-Op Diagnosis: Wound dehiscence of right below the knee stump. Post-Op Diagnosis: Wound dehiscence of right below the knee stump. I identified the patient and participated in the time-out.: Yes Procedure Operation Date: 09/05/23 09:25 Actual Procedures p Incision, Drainage and Closure of Right Below Knee Amputation Dehiscence.(Right) - Monico Jordan MD Surgeon Monico Jordan MD [place] Reo Robert Brown PA-C Estimated Blood Loss 15 Findings Consistent with Post-Op Diagnosis Specimens Right BKA stump tissue Description of Procedure I was present during the entire case assisting with positioning, prepping, draping, wound retraction, wound closure, dressing and splint application. No fellow present. Please see Dr. Jordan procedure note for specifics of the case. I attest to the content of the Intraoperative Record and any orders documented therein. Any exceptions are noted below.
[2023-09-05] MEDS ORDERED: NITROGLYCERIN SL 0.4 MG/TAB TAB SL PRN (19:35)
--- NOTE | 2023-09-05 19:43 | Operative Report ---
Post Operative Report Pre & Post Diagnosis Operation Date: 09/05/23 09:25 Pre-Op Diagnosis: Wound dehiscence of right below the knee stump. Post-Op Diagnosis: Wound dehiscence of right below the knee stump. I identified the patient and participated in the time-out.: Yes Procedure Operation Date: 09/05/23 09:25 Actual Procedures p irrigation debridemente and Closure of Right Below Knee Amputation Dehiscence.(Right) - Monico Jordan MD Surgeon Monico Jordan MD Lean Specialist Robert Brown PA-CNo resident or fellow available Estimated Blood Loss 15 Findings Consistent with Post-Op Diagnosis Specimens Culture of the wound as well as tissue for culture and permanent specimen. Drains Hemovac x 1 Anesthesia Type General Regional Complications none Disposition Accompanied Patient To Recovery: No Disposition: Recovery Room Indications Michael is 73 years old. He has a complicated past medical history. He had a right knee below-knee amputation done [address] Worrell for disc vascularity and recurrent diabetic foot infections. He was having some issues with healing of the wound which were being addressed at his care facility. He fell earlier today and dehisced his wound. This happened at 10 AM. I was notified at 2:[address] oWrrell is out of town. The patient did receive antibiotics. I agreed to evaluate and treat the patient. His past medical history medications are reviewed and noted. He is currently on Eliquis. Dr. Diaz has kindly helped us with the reversal agent which is given prior to surgery. X-rays of the right tib-fib show no evidence of fracture. I reviewed his labs. I recommended irrigation debridement and closure. There was possibility of need to revise the tibia to shorten it in order to get adequate wound closure depending on the circumstances. He agreed to proceed. Informed consent was obtained. Description of Procedure Patient identified. He identified the procedure site as the right BKA stump which I marked with my initials. A preop surgical timeout was performed. A preop dose of IV antibiotics was given. Kcentra and TXA given. He was taken to the OR positioned supine. Tourniquet applied to the right thigh but not inflated during the case. There was some marginal eschar present and an area centrally on the posterior wound margin of what appeared to be mildly necrotic skin and deeper tissue around the area of the incision. There was some oozing of blood but no active bleeding. The incision was dehisced for perhaps 80% of its length. The tibia was exposed. Pictures obtained. The leg was scrubbed with Betadine and prepped with Betadine. The procedure began by systematically and sharply excising the skin margins and debriding the deeper tissues. Mostly muscle and tendon a couple millimeters throughout in order to freshen up the ends and remove bioburden. I stayed away from the neurovascular bundle area. I had debrided fibrinous exudate that was present throughout the wound and also debrided some bone spicules around the tibia. I did this for the entire skin margin and wound bed. I then went through with a rongeur and did the same thing. We got good punctate bleeding throughout. Posteriorly along the central incision there was a larger area where I had to excise excise perhaps 3 to 5 mm of skin and soft tissue and deeper about 1 and half centimeters because of and viable tissue. The rest of it was millimeter to off of the wound margins. Prior to doing this a wound culture was obtained and then the tissue that I removed was sent for specimen and culture. The wound was then scrubbed with a Betadine scrub brush throughout and then irrigated with 3 L of saline and this process was repeated x 1. The tissue looked good and healthy and actually could be reapproximated without undue tension. I inserted a deep Hemovac drain and then closed the wound in a loose fashion but covering the bone. This was done using near far far near stitches and simple and horizontal mattress stitches. Thick bites with the retention sutures were obtained through the skin and fascial tissues. Extraneous sutures were removed as encountered. The leg was cleaned with wet and dry sponges local anesthetic 1% lidocaine was injected around the margins of the incision and then a well-padded bulky dressing was applied with ABDs over the bony prominences and cast padding followed by a posterior splint from the mid thigh wrapping down around the BKA stump to the anterior aspect of the knee. Patient waken from anesthesia difficulty taken to the recovery room in stable condition. Specimens were as mentioned above. Counts were correct blood loss is estimated to be 15 cc. Plan is to admit to the hospital monitor the wound continue intravenous antibiotics. I attest to the content of the Intraoperative Record and any orders documented therein. Any exceptions are noted below.
--- NOTE | 2023-09-05 19:52 | Anesthesiology Progress Note ---
Date of Service September 05, 2023 Anesthesia Post Procedure Vital Signs Vital Signs: Temp Pulse Pulse Pulse Resp BP BP 09/05/23 19:50 108 H 20 09/05/23 19:40 107 H 20 09/05/23 19:32 36.6 C 111 H 11 L 09/05/23 16:59 36.5 C 101 H 20 104/90 09/05/23 14:30 99 H 21 09/05/23 14:30 130/86 09/05/23 14:12 102 H 26 H 09/05/23 14:12 130/81 09/05/23 14:11 102 H 37 H 09/05/23 13:00 100 H 17 09/05/23 13:00 124/84 09/05/23 12:38 99 H 18 09/05/23 12:26 09/05/23 11:37 36.6 C 102 H 18 131/83 BP Pulse Ox O2 Del Method O2 Flow Rate 09/05/23 19:50 106/86 95 Nasal Cannula 4 09/05/23 19:40 106/84 95 Nasal Cannula 4 09/05/23 19:32 97/73 L 88 L Oxymask 10 09/05/23 16:59 95 Nasal Cannula 3 09/05/23 14:30 94 09/05/23 14:30 09/05/23 14:12 93 09/05/23 14:12 09/05/23 14:11 94 09/05/23 13:00 95 09/05/23 13:00 09/05/23 12:38 09/05/23 12:26 95 3 09/05/23 11:37 95 Nasal Cannula 3 Pain Intensity Right Leg: Pain Intensity: 10 Transfer of Care Handoff Completed per policy Notes Mental Status: alert / awake / arousable and participated in evaluation Patient Amnestic to Procedure: Yes Nausea / Vomiting: adequately controlled Pain: adequately controlled Airway Patency, RR, SpO2: stable & adequate BP & HR: stable & adequate Hydration State: stable & adequate Anesthetic Complications: no major complications apparent and Pt Satisfied with anesthetic care
--- NOTE | 2023-09-05 20:31 | Pharmacy Report ---
Pharmacy Glycemic Short Note 2 - Date of Service September 05, 2023 - Glycemic Short BSG Results (Last 24 hours): 09/05/23 09/05/23 09/05/23 12:33 16:59 19:38 Glucose 127 H POC Glucose 121 H 125 H 09/05/23 20:18 Glucose POC Glucose 128 H OUTPATIENT ANTIDIABETIC REGIMEN: * Jardiance 10mg PO Daily * A1c 6.8% 07/18/23 ASSESSMENT: * 73 yo M, PMH right foot infections S/P right BKA on 07/26/[address] Worrell, AFib, DMII, CHF, right BKA site dehiscence and right shoulder pain after sustaining mechanical fall. * s/p I&D R BKA, glycemic consult, managed on Jardiance alone at home, euglycemic, no steroids. Heart healthy diet ordered for dinner tonight. * Continue Jardiance in patient with Heart Failure, and use NovoLog CF/CR only at this time. Will add basal if needed. PLAN FOR INPATIENT GLYCEMIC CONTROL: * Jardiance 10mg PO daily * Basal insulin * None at this time * Bolus insulin * NovoLog per scale ACHS or Q6hrs while NPO * Goal Range: Low 110 mg/dL - High 140 mg/dL * Correction Factor: 50 mg/dL/unit * Nutritional / Prandial insulin per carb ratio of 1 unit per 15 grams CHO consumed
[2023-09-05] MEDS ORDERED: NON-FORMULARY MEDICATION (Budesonide-Glycopyr-Formoterol [Breztri Aerosphere] 160-9-4.8 mc INH SCH (21:00)
[2023-09-05] MEDS: AMPICILLIN/SULBACTAM SOD 3,000 MG in SODIUM CHLOR 0.9% MINI-B 100 ML IV SCH (21:26)
[2023-09-05] MEDS: carvediloL 3.125 MG TAB PO SCH (21:27)
[2023-09-05] MEDS: DOCUSATE SODIUM 100 MG CAP PO SCH (21:28)
[2023-09-05] MEDS: hydrALAZINE HCL 25 MG TAB PO SCH (21:28)
[2023-09-05] MEDS: SENNA 8.6 MG TAB PO SCH (21:28)
[2023-09-05] MEDS: INSULIN ASPART PER UNIT CHARGE SC SCH (21:30)
[2023-09-05] MEDS: ACETAMINOPHEN 500 MG TAB PO SCH (21:30)
[2023-09-05] MEDS: ATORVASTATIN 40 MG TAB PO SCH (21:30)
[2023-09-05] MEDS: SODIUM CHLORIDE 0.9% 1,000 ML IV SCH (21:58)
[2023-09-05] MEDS: KCENTRA (500unit vial) 2000 units IVP IV ONE (21:59)
[2023-09-05] MEDS: ceFAZolin 1000MG 1,000 MG/7.5 ML SYR IV STA (21:59)
[2023-09-05] MEDS ORDERED: AMPICILLIN SOD/SULBACTAM SOD 3 GM VIAL IV SCH (22:00)
[2023-09-06] MEDS: ceFAZolin 2000MG 2,000 MG/15 ML SYR IV SCH (02:15)
[2023-09-06] MEDS: oxyCODONE HCL IR 5 MG TAB (IMMEDIATE RELEASE) PO PRN (06:15)
[2023-09-06] MEDS: AMPICILLIN/SULBACTAM SOD 3,000 MG in SODIUM CHLOR 0.9% MINI-B 100 ML IV SCH (07:13)
[2023-09-06] MEDS: INSULIN ASPART PER UNIT CHARGE SC SCH (07:13)
[2023-09-06 07:39] LABS: INR 1.1 (0.9-1.1); Prothrombin Time 11.4 Seconds (9.0-12.0)
[2023-09-06 07:45] LABS: Albumin Globulin Ratio 1.4 (0.9-2); Albumin Level 3.4 gm/dl (3.4-5.0); BUN Creatinine Ratio 20.8 (10-20); Bilirubin,Total 0.5 mg/dl (0.2-1.0); Calcium 8.2 mg/dl (8.6-10.3); Creatinine Clr Calc Pharmacy 40.6 ml/min; Est GFR (African American) 55.1 ml/min; Est GFR (Non-African American) 47.5 ml/min; Globulin 2.5 gm/dl (2.5-4.0); Magnesium 2.3 mg/dl (1.7-2.4); Potassium 3.8 mmol/L (3.5-5.1); Total Protein 5.9 gm/dl (6.0-8.3)
--- NOTE | 2023-09-06 07:50 | XRay Report ---
XR knee RT 1 or 2V routine CLINICAL HISTORY: Surgical Post Op COMPARISON: Right knee radiographs performed earlier today. FINDINGS: Postoperative findings consistent with right below-knee amputation. There are no fractures or radiopaque foreign bodies. Surgical drain is in place. Extensive vascular calcification is incide ntally noted. IMPRESSION: Status post right below knee amputation. Surgical drain in place. No unexpected radiopaqu e foreign bodies. ACT 112: Negative or not required by law. Electronically signed by: Biju Lr M.D. 09/06/2023 7:48 AM
[2023-09-06 08:00] LABS: Hemoglobin 11.6 g/dl (14.0-18.0); Mean Corpuscular Hemoglobin 33.2 pg (25.0-34.0); Mean Corpuscular Hgb Conc 32.2 g/dL (32.0-36.0); Mean Corpuscular Volume 103.2 fL (80.0-100.0); Mean Platelet Volume 11.1 fL (9.4-12.4); Platelet Count 246 K/uL (130-400); RDW Coefficient of Variation 16.6 % (11.5-14.5); RDW Standard Deviation 63.7 fL (36.4-46.3); Red Blood Count 3.49 M/uL (4.70-6.10); White Blood Count 8.97 K/ul (4.8-10.8)
--- NOTE | 2023-09-06 08:09 | Hospitalist Progress Note ---
Date of Service September 06, 2023 Assessment & Plan (1) Wound dehiscence: Plan: Admit PCU- stable on his baseline 3L NC, and non-toxic appearing s/p right BKA with Dr. Worrell on 07/26/23 for recurrent right diabetic foot infections, had been on 10 day course Levaquin for possible infection at surgical site prior to admission Unfortunately, had been doing well at rehab but sustained fall AM 09/04 while transfering from bed to wheelchair and sustained dehiscence of RIGHT BKA wound, wrapped in ER. Dr Worrell out of town until 09/09 Dr Jordan from orthopedics agreed to take patient to OR for I&D, wound RN consulted Given Cephalexin in ER, continued on Unasyn on admission 09/05 s/p irrigation debridement and Closure of Right Below Knee Amputation Dehiscence.(Right) - Monico Jordan MD on 09/04 EBL 15cc Hemovac in place WBC normalized, 11.5k--> 8.97k. Afebrile Blood cultures pending OR cx pending Given Unasyn on admission, ancef post-op ordered as well by orthopedics discontinued Pain control Eliquis resumed for DVT proph post-op Holding AM lasix given Cr 1.44 (weights 72.6kg, dc at 74kg last month) Repeat CXR ordered for eval but on baseline 3L NC, no increased SOB but elevated HR/flutter and dose lopressor ordered. Consideration for small amount IVF but holding off for now given initial CXR noting prominence of pulmonary vasculature MCV>100, TSH wnl. No prior B12/folate, will check R shoulder pain/decreased ROM. Discussed w/ radiologist control room technician and confirmed no acute fracture on xray. Voltaren gel added for local pain control w/ improvement --> ordering CT imaging for further eval --> IMPRESSION: Bony fracture arising from the tip of the acromion may represent nondisplaced fracture or chronic bony fragment. Correlation with point tenderness is recommended. Ortho messaged, to eval, possible sling/WBAT and do no suspect any intevention (2) Fall: Plan: Mechanical fall due to his wheelchair tipping over while he was trying to transfer . No LOC/head trauma Initial shoulder X ray negative for acute fracture, CT shoulder as above Voltaren gel/pain control, therapy evals CT RIGHT shoulder IMPRESSION: Bony fracture arising from the tip of the acromion may represent nondisplaced fracture or chronic bony fragment. Correlation with point tenderness is recommended. ?sling CXR w/ pulm vascular prominence on admission however O2 baseline and no LE edema w/ elevated [employer] and lasix placed on hold. F/u urine cx Nephrostomy draining without issue but can consider abd imaging if needed (3) Chronic HFrEF (heart failure with reduced ejection fraction): Plan: Currently euvolemic on exam /slightly dry Held off IVF on admit given LVEF @25% Continue usual CHF meds with exception of lasix for today given volume status/NYLA Repeat CXR --> Cardiomegaly is seen. Previously noted pulmonary edema has improved. 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 Ortho already on board given I&D and will re-eval this afternoon Topical voltaren added w/ improvement Pain control ?sling as above PT/OT consults pending (6) Atrial fibrillation: Plan: Stable , slight elevation but suspect aspect of pain Afib/flutter, rates 90-110s this morning Lopressor x 1 provided given elevated HR, lasix placed on hold Carvedilol continued, eliquis resumed post op Monitor on telemetry, keep electrolytes replete (7) Chronic respiratory failure with hypoxia: Plan: Stable Continue 3L NC at all times Incentive spirometry some scattered crackles but denies any increased SOB above baseline or change in sputum production Added incentive spirometer/flutter valve Monitor for any changes On Unasyn as above, can add atypical if any change in sputum production (8) CAD (coronary artery disease): Plan: Continue aspirin, statin, and carvedilol (9) CLL (chronic lymphocytic leukemia): Plan: CBC is stable today 11.6 in setting of surgery and will monitor Continue to follow up with heme/onc on discharge (10) Diabetes mellitus, type 2: Plan: Jardiance initially held, resumed given for CHF (EF ~25%) Basal/bolus while inpatient with acceptable BSGs and will monitor Plan continued inpatient stay on abx/monitor cxs therapy evals pending but likely to need rehab at discharge Admission and Anticipated Discharge Date Admission Date: September 05, 2023 Supervising Physician Co-Signing Physician Notes The patient was not seen by me. The chart was reviewed. Case discussed with KHADIJAH Del Rio. Agree with assessment and plan Subjective Evaluated around 1045am, sitting up in chair, feeling better. Had been doing well at rehab until the fall and wound dehiscence but was on abx for possible local infection. Pain controlled w/ current meds, no pain if not moving it. On 3L O2 at baseline, presently 93% on 3L. Hx COPD. Denies increased SOB above baseline but reports is always SOB due to his COPD. He does endorse occasional palpitations from his afib/flutter but no CP. RN to administer dose Lopressor for flutter to 100-110s. No significant LE edema and AM lasix placed on hold for now. Repeat CXR ordered for eval but wanting better HR control/avoidance of diuretics and may consider small amount IVF pending. Discussed continued inpatient stay on abx and monitoring OR cx. He reports having appt next month for urology w/ dye/finding orifice and if able consideration for stent and removal of nephrostomy tube. He does have some ongoing R shoulder pain, did fall on this shoulder w/ fall. Xray without acute fracture on admission. Questions/concerns addressed at this time. Physical Exam Physical Exam: General: 73yo male sitting up in chair, NAD HEENT: head atraumatic, normocephalic, mm slightly dry, trachea midline Resp: scattered crackles bilaterally, diminished in the bases but no significant wheezing, on baseline 3L NC CV: irregularly irregular, rates 90-110s, +systolic murmur, NO pitting edema GI: +BS, soft/NT, L nephrostomy bag w/ pink tinged urine MSK/Neuro: RIGHT BKA s/o I&D, wrapped/splint in place, dressing NOT removed, no significant findings to LLE RIGHT SHOULDER with decreased ROM/tenderness to joint reported, no significant ecchymosis/redness, no obvious bony step offs Psych: AOx3, cooperative with exam Results & Data Results & Data Vital Signs (Past 12 Hours) Vital Signs Temp Pulse Pulse Pulse Resp BP Pulse Ox 09/06/23 07:49 36.6 C 115 H 16 125/88 93 09/06/23 03:00 36.5 C 89 18 127/79 94 09/05/23 23:20 36.4 C L 98 H 16 105/67 94 09/05/23 22:20 36.4 C L 114 H 16 97/62 L 92 09/05/23 22:01 114 H 09/05/23 21:40 104 H 09/05/23 21:20 36.6 C 105 H 16 136/91 91 09/05/23 20:50 36.5 C 94 H 16 139/76 93 09/05/23 20:20 09/05/23 20:20 37.0 C 98 H 16 101/75 92 O2 Del Method O2 Flow Rate 09/06/23 07:49 Nasal Cannula 2.5 09/06/23 03:00 Nasal Cannula 3 09/05/23 23:20 Nasal Cannula 3 09/05/23 22:20 Nasal Cannula 3 09/05/23 22:01 09/05/23 21:40 09/05/23 21:20 Nasal Cannula 3 09/05/23 20:50 Nasal Cannula 3 09/05/23 20:20 Nasal Cannula 3 09/05/23 20:20 Nasal Cannula 3 Laboratory Results 09/06/23 09/06/23 09/06/23 Range/Units 08:15 07:59 07:00 WBC 8.97 (4.8-10.8) K/ul RBC 3.49 L (4.70-6.10) M/uL Hgb 11.6 L (14.0-18.0) g/dl Hct 36.0 L (42.0-52.0) % MCV 103.2 H (80.0-100.0) fL MCH 33.2 (25.0-34.0) pg MCHC 32.2 (32.0-36.0) g/dL RDW Std Deviation 63.7 H (36.4-46.3) fL RDW Coeff of Sharmaine 16.6 H (11.5-14.5) % Plt Count 246 (130-400) K/uL MPV 11.1 (9.4-12.4) fL Immature Gran % (Auto) 0.4 % Neut % (Auto) 63.3 % Lymph % (Auto) 28.0 % [place] % (Auto) 7.2 % Eos % (Auto) 0.8 % Baso % (Auto) 0.3 % Neut # (Auto) 5.67 (1.40-6.50) K/uL Lymph # (Auto) 2.51 (1.20-3.40) K/uL [place] # (Auto) 0.65 H (0.11-0.59) K/uL Eos # (Auto) 0.07 (0.00-0.50) K/uL Baso # (Auto) 0.03 (0.00-0.20) K/uL Immature Gran # (Auto) 0.04 (0.01-0.20) K/uL Platelet Estimate Normal (Normal) PT (9.0-12.0) Seconds INR (0.9-1.1) APTT (21-31) Seconds PTT Ratio Sodium 143 (136-145) mmol/L Potassium 3.8 (3.5-5.1) mmol/L Chloride 104 (98-107) mmol/L Carbon Dioxide 34 H (21-32) mmol/L Anion Gap 5 (3-11) BUN 30 H (6-23) mg/dl Creatinine 1.44 H (0.6-1.4) mg/dl Est Cr Clr Drug Dosing 40.6 ml/min Est GFR ( Amer) 55.1 ml/min Est GFR (Non-Af Amer) 47.5 ml/min BUN/Creatinine Ratio 20.8 H (10-20) Glucose 118 H (70-99(Fasting)) mg/dl POC Glucose 116 H (70-99) mg/dl Calcium 8.2 L (8.6-10.3) mg/dl Magnesium 2.3 (1.7-2.4) mg/dl Total Bilirubin 0.5 (0.2-1.0) mg/dl AST 18 (13-39) U/L ALT 14 (7-52) U/L Alkaline Phosphatase 67 (34-104) U/L Total Protein 5.9 L (6.0-8.3) gm/dl Albumin 3.4 (3.4-5.0) gm/dl Globulin 2.5 (2.5-4.0) gm/dl Albumin/Globulin Ratio 1.4 (0.9-2) Vitamin B12 885 (180-914) pg/ml Folate > 22.30 (>5.38) ng/ml TSH (0.300-4.500) uIu/ml Nasal Screen MRSA (PCR) (Negative) Blood Type Antibody Screen 09/06/23 09/05/23 09/05/23 Range/Units 06:34 Unknown 20:18 WBC (4.8-10.8) K/ul RBC (4.70-6.10) M/uL Hgb (14.0-18.0) g/dl Hct (42.0-52.0) % MCV (80.0-100.0) fL MCH (25.0-34.0) pg MCHC (32.0-36.0) g/dL RDW Std Deviation (36.4-46.3) fL RDW Coeff of Sharmaine (11.5-14.5) % Plt Count (130-400) K/uL MPV (9.4-12.4) fL Immature Gran % (Auto) % Neut % (Auto) % Lymph % (Auto) % [place] % (Auto) % Eos % (Auto) % Baso % (Auto) % Neut # (Auto) (1.40-6.50) K/uL Lymph # (Auto) (1.20-3.40) K/uL [place] # (Auto) (0.11-0.59) K/uL Eos # (Auto) (0.00-0.50) K/uL Baso # (Auto) (0.00-0.20) K/uL Immature Gran # (Auto) (0.01-0.20) K/uL Platelet Estimate (Normal) PT 11.4 (9.0-12.0) Seconds INR 1.1 (0.9-1.1) APTT (21-31) Seconds PTT Ratio Sodium (136-145) mmol/L Potassium (3.5-5.1) mmol/L Chloride (98-107) mmol/L Carbon Dioxide (21-32) mmol/L Anion Gap (3-11) BUN (6-23) mg/dl Creatinine (0.6-1.4) mg/dl Est Cr Clr Drug Dosing ml/min Est GFR ( Amer) ml/min Est GFR (Non-Af Amer) ml/min BUN/Creatinine Ratio (10-20) Glucose (70-99(Fasting)) mg/dl POC Glucose 128 H (70-99) mg/dl Calcium (8.6-10.3) mg/dl Magnesium (1.7-2.4) mg/dl Total Bilirubin (0.2-1.0) mg/dl AST (13-39) U/L ALT (7-52) U/L Alkaline Phosphatase (34-104) U/L Total Protein (6.0-8.3) gm/dl Albumin (3.4-5.0) gm/dl Globulin (2.5-4.0) gm/dl Albumin/Globulin Ratio (0.9-2) Vitamin B12 (180-914) pg/ml Folate (>5.38) ng/ml TSH (0.300-4.500) uIu/ml Nasal Screen MRSA (PCR) Negative (Negative) Blood Type Antibody Screen 09/05/23 09/05/23 09/05/23 Range/Units 19:38 16:59 15:50 WBC (4.8-10.8) K/ul RBC (4.70-6.10) M/uL Hgb (14.0-18.0) g/dl Hct (42.0-52.0) % MCV (80.0-100.0) fL MCH (25.0-34.0) pg MCHC (32.0-36.0) g/dL RDW Std Deviation (36.4-46.3) fL RDW Coeff of Sharmaine (11.5-14.5) % Plt Count (130-400) K/uL MPV (9.4-12.4) fL Immature Gran % (Auto) % Neut % (Auto) % Lymph % (Auto) % [place] % (Auto) % Eos % (Auto) % Baso % (Auto) % Neut # (Auto) (1.40-6.50) K/uL Lymph # (Auto) (1.20-3.40) K/uL [place] # (Auto) (0.11-0.59) K/uL Eos # (Auto) (0.00-0.50) K/uL Baso # (Auto) (0.00-0.20) K/uL Immature Gran # (Auto) (0.01-0.20) K/uL Platelet Estimate (Normal) PT (9.0-12.0) Seconds INR (0.9-1.1) APTT (21-31) Seconds PTT Ratio Sodium (136-145) mmol/L Potassium (3.5-5.1) mmol/L Chloride (98-107) mmol/L Carbon Dioxide (21-32) mmol/L Anion Gap (3-11) BUN (6-23) mg/dl Creatinine (0.6-1.4) mg/dl Est Cr Clr Drug Dosing ml/min Est GFR ( Amer) ml/min Est GFR (Non-Af Amer) ml/min BUN/Creatinine Ratio (10-20) Glucose (70-99(Fasting)) mg/dl POC Glucose 125 H 121 H (70-99) mg/dl Calcium (8.6-10.3) mg/dl Magnesium (1.7-2.4) mg/dl Total Bilirubin (0.2-1.0) mg/dl AST (13-39) U/L ALT (7-52) U/L Alkaline Phosphatase (34-104) U/L Total Protein (6.0-8.3) gm/dl Albumin (3.4-5.0) gm/dl Globulin (2.5-4.0) gm/dl Albumin/Globulin Ratio (0.9-2) Vitamin B12 (180-914) pg/ml Folate (>5.38) ng/ml TSH (0.300-4.500) uIu/ml Nasal Screen MRSA (PCR) Negative (Negative) Blood Type Antibody Screen 09/05/23 09/05/23 Range/Units 14:48 12:33 WBC 11.51 H (4.8-10.8) K/ul RBC 3.80 L (4.70-6.10) M/uL Hgb 12.6 L (14.0-18.0) g/dl Hct 38.9 L (42.0-52.0) % MCV 102.4 H (80.0-100.0) fL MCH 33.2 (25.0-34.0) pg MCHC 32.4 (32.0-36.0) g/dL RDW Std Deviation 61.8 H (36.4-46.3) fL RDW Coeff of Sharmaine 16.4 H (11.5-14.5) % Plt Count 279 (130-400) K/uL MPV 10.9 (9.4-12.4) fL Immature Gran % (Auto) 0.8 % Neut % (Auto) 63.4 % Lymph % (Auto) 28.1 % [place] % (Auto) 6.8 % Eos % (Auto) 0.6 % Baso % (Auto) 0.3 % Neut # (Auto) 7.30 H (1.40-6.50) K/uL Lymph # (Auto) 3.23 (1.20-3.40) K/uL [place] # (Auto) 0.78 H (0.11-0.59) K/uL Eos # (Auto) 0.07 (0.00-0.50) K/uL Baso # (Auto) 0.04 (0.00-0.20) K/uL Immature Gran # (Auto) 0.09 (0.01-0.20) K/uL Platelet Estimate (Normal) PT 11.7 (9.0-12.0) Seconds INR 1.1 (0.9-1.1) APTT 29 (21-31) Seconds PTT Ratio 1.1 Sodium 141 (136-145) mmol/L Potassium 3.8 (3.5-5.1) mmol/L Chloride 101 (98-107) mmol/L Carbon Dioxide 35 H (21-32) mmol/L Anion Gap 5 (3-11) BUN 38 H (6-23) mg/dl Creatinine 1.30 (0.6-1.4) mg/dl Est Cr Clr Drug Dosing 48.7 ml/min Est GFR ( Amer) 62.3 ml/min Est GFR (Non-Af Amer) 53.8 ml/min BUN/Creatinine Ratio 29.2 H (10-20) Glucose 127 H (70-99(Fasting)) mg/dl POC Glucose (70-99) mg/dl Calcium 8.7 (8.6-10.3) mg/dl Magnesium (1.7-2.4) mg/dl Total Bilirubin 0.7 (0.2-1.0) mg/dl AST 22 (13-39) U/L ALT 26 (7-52) U/L Alkaline Phosphatase 72 (34-104) U/L Total Protein 6.1 (6.0-8.3) gm/dl Albumin 3.5 (3.4-5.0) gm/dl Globulin 2.6 (2.5-4.0) gm/dl Albumin/Globulin Ratio 1.3 (0.9-2) Vitamin B12 (180-914) pg/ml Folate (>5.38) ng/ml TSH 2.439 (0.300-4.500) uIu/ml Nasal Screen MRSA (PCR) (Negative) Blood Type O Positive Antibody Screen NEGATIVE Diagnostic Findings Chest X-Ray 09/05/23 14:35 SINGLE VIEW CHEST CLINICAL HISTORY: Fall. FINDINGS: An AP, portable, upright chest radiograph is compared to study dated 07/30/2023. The examination is degraded by portable technique and apical lordotic positioning. The patient is status post midline sternotomy. A 2-lead cardiac AICD is unchanged in position. The heart is enlarged noting atherosclerotic calcification of the thoracic aorta. There is prominence of the pulmonary vasculature. Emphysema and chronic interstitial thickening is similar to previous. There is bibasilar scarring/atelectasis. No airspace consolidation or large pleural effusion is identified. No pneumothorax is seen. The skeletal structures are osteopenic. The bony thorax is grossly intact. IMPRESSION: 1. Cardiomegaly and AICD with prominence of the pulmonary vasculature. Correlate clinically for evidence of fluid overload/congestive change. 2. Emphysema. 3. No airspace consolidation or pleural effusion is identified. ACT 112: Negative or not required by law. Electronically signed by: Gui Mendoza M.D. 09/05/2023 3:22 PM Knee X-Ray 09/05/23 19:32 XR knee RT 1 or 2V routine CLINICAL HISTORY: Surgical Post Op COMPARISON: Right knee radiographs performed earlier today. FINDINGS: Postoperative findings consistent with right below-knee amputation. There are no fractures or radiopaque foreign bodies. Surgical drain is in place. Extensive vascular calcification is incidentally noted. IMPRESSION: Status post right below knee amputation. Surgical drain in place. No unexpected radiopaque foreign bodies. ACT 112: Negative or not required by law. Electronically signed by: Biju Lr M.D. 09/06/2023 7:48 AM Chest X-Ray 09/06/23 10:44 XR chest 1V portable CLINICAL HISTORY: f/u pulm congestion TECHNIQUE: Single frontal radiograph of the chest was obtained. Comparison: Comparison is made to chest radiograph 09/05/2023 FINDINGS: Pacemaker defibrillator is seen. Median sternotomy wires are seen. Peribronchial thickening is noted. Prominence and cephalization of the vasculature is seen. No evidence of pleural effusion or pneumothorax. IMPRESSION: 1. Cardiomegaly is seen. Previously noted pulmonary edema has improved. 2. Bronchial wall thickening may represent infectious/inflammatory airways disease. ACT 112: Negative or not required by law. Electronically signed by: Jay Ricketts M.D. 09/06/2023 11:[address] 09/06/23 11:02 CT shoulder RT wo con CLINICAL HISTORY: fall, decreased ROM/R shoulder pain, eval fracture TECHNIQUE: Multidetector row helical CT of the right shoulder was performed without intravenous contrast. Coronal and sagittal reformations were obtained. A utomated dose lowering techniques and/or adjustment according to patient size were utilized for this examination. CT DOSE: 464.45 mGy.cm Comparison: Comparison is made to right shoulder radiographs 09/05/2023 FINDINGS: Degenerative changes are seen in the acromioclavicular joint. There is a bony fragment arising from the anterior tip of the acromion. The soft tissues are unremarkable. IMPRESSION: Bony fracture arising from the tip of the acromion may represent nondisplaced fracture or chronic bony fragment. Correlation with point tenderness is recommended. ACT 112: Negative or not required by law. Electronically signed by: Jay Ricketts M.D. 09/06/2023 1:46 PM PG Care Time/CCT Total # of Minutes Spent Total Time Spent with Patient: Total time spent is greater than 50% in coordination of care (as documented) at patient's floor/unit and/or counseling patient: Coding Level of Care Code 62030 SUB INP/OBS CARE 3/50MIN Diagnoses Wound dehiscence T81.30XA Fall W19.XXXA Chronic HFrEF (heart failure with reduced ejection fraction) I50.22 Nephrostomy status Z93.6 Right shoulder pain M25.511 Chronicity: acute Atrial fibrillation I48.91 Chronic respiratory failure with hypoxia J96.11 CAD (coronary artery disease) I25.10 CLL (chronic lymphocytic leukemia) C91.10 Diabetes mellitus, type 2 E11.9 (5) Right shoulder pain Chronicity: acute Qualified Code(s): M25.511 - Pain in right shoulder
[2023-09-06 08:20] LABS: Basophils # (auto) 0.03 K/uL (0.00-0.20); Basophils % (auto) 0.3 %; Eosinophils # (auto) 0.07 K/uL (0.00-0.50); Eosinophils % (auto) 0.8 %; Immature Granulocytes # (auto) 0.04 K/uL (0.01-0.20); Immature Granulocytes % (auto) 0.4 %; Lymphocytes # (auto) 2.51 K/uL (1.20-3.40); Monocytes # (auto) 0.65 K/uL (0.11-0.59); Monocytes % (auto) 7.2 %; Neutrophils # (auto) 5.67 K/uL (1.40-6.50); Neutrophils % (auto) 63.3 %; Platelet Estimate Normal (Normal)
[2023-09-06] MEDS: MULTIVITAMIN TAB PO SCH (08:36)
[2023-09-06] MEDS: APIXABAN 5 MG TABLET PO SCH (08:36)
[2023-09-06] MEDS: ASPIRIN 81 MG ECTAB PO SCH (08:36)
[2023-09-06] MEDS: POTASSIUM CHLORIDE CRTAB 20 MEQ TABCR PO SCH (08:38)
[2023-09-06] MEDS: CALCIUM CARBONATE 1250MG TAB PO SCH (08:38)
[2023-09-06] MEDS: PSYLLIUM or GUAR GUM FIBER 4GM PACKET PO SCH (08:38)
[2023-09-06] MEDS: FERROUS SULFATE 325 MG TAB PO SCH (08:38)
[2023-09-06] MEDS: CYANOCOBALAMIN (B-12) 500 MCG TABLET PO SCH (08:38)
[2023-09-06] MEDS: UMECLIDINIUM/VILANTEROL 62.5/25MCG 7 PUFFS/INHALER INH SCH (08:39)
[2023-09-06] MEDS: FLUTICASONE FUROATE 200MCG 14 PUFFS/INHALER INH SCH (08:40)
[2023-09-06] MEDS ORDERED: NON-FORMULARY MEDICATION (Multivitamin Tablet) PO SCH (09:00)
[2023-09-06] MEDS ORDERED: EMPAGLIFLOZIN 10 MG TAB PO SCH (09:00)
[2023-09-06 09:41] LABS: Folate (Folic Acid),Ser orPlas > 22.30 ng/ml (>5.38)
[2023-09-06 09:42] LABS: Vitamin B12 885 pg/ml (180-914)
[2023-09-06] MEDS: traMADol HCL 50 MG TABLET PO PRN (09:57)
[2023-09-06] MEDS: METOPROLOL TARTRATE 1 MG/ML VIAL IV STA (10:49)
--- NOTE | 2023-09-06 11:38 | XRay Report ---
XR chest 1V portable CLINICAL HISTORY: f/u pulm congestion TECHNIQUE: Single frontal radiograph of the chest was obtained. Comparison: Comparison is made to chest radiograph 09/05/2023 FINDINGS: Pacemaker defibrillator is seen. Median sternotomy wires are seen. Peribronchial thickening is noted. Prominence and cephalization of the vasculature is seen. No evidence of pleural effusion or pneumoth orax. IMPRESSION: 1. Cardiomegaly is seen. Previously noted pulmonary edema has improved. 2. Bronchial wall thickening may represent infectious/inflammatory airways disease. ACT 112: Negative or not required by law. Electronically signed by: Jay Ricketts M.D. 09/06/2023 11:36 AM
[2023-09-06] MEDS: DICLOFENAC SOD 1% GEL 100 GM TUBE EXT SCH (12:08)
--- NOTE | 2023-09-06 13:47 | CT Scan Report ---
CT shoulder RT wo con CLINICAL HISTORY: fall, decreased ROM/R shoulder pain, eval fracture TECHNIQUE: Multidetector row helical CT of the right shoulder was performed without intravenous contr ast. Coronal and sagittal reformations were obtained. Automated dose lowering techniques and/or adjus tment according to patient size were utilized for this examination. CT DOSE: 464.45 mGy.cm Comparison: Comparison is made to right shoulder radiographs 09/05/2023 FINDINGS: Degenerative changes are seen in the acromioclavicular joint. There is a bony fragment arising from t he anterior tip of the acromion. The soft tissues are unremarkable. IMPRESSION: Bony fracture arising from the tip of the acromion may represent nondisplaced fracture or chronic bon y fragment. Correlation with point tenderness is recommended. ACT 112: Negative or not required by law. Electronically signed by: Jay Ricketts M.D. 09/06/2023 1:46 PM
[2023-09-06] MEDS ORDERED: FLUTICASONE FUROATE 200MCG 14 PUFFS/INHALER INH SCH (15:30)
--- NOTE | 2023-09-06 16:10 | Orthopedic Progress Note ---
Date of Service September 06, 2023 Assessment & Plan (1) Wound dehiscence: Plan: Spoke with Dr. Faye. Continue IV antibiotics. Will change dressing tomorrow and monitor the wound. Continue splint. Elevate. He will be back on his Eliquis for DVT prophylaxis. Admission and Anticipated Discharge Date Admission Date: September 05, 2023 Orthopedic Progress Note Patient seen and evaluated. Some discomfort but pain well-controlled. Sitting in a wheelchair. Results of the surgical procedure and as well as the plan are discussed. Drain output not recorded and had not been drained. Looks like less than 50 cc in the bowel. The splint is intact. Cultures are no growth to date.
[2023-09-07 06:49] LABS: Basophils # (auto) 0.02 K/uL (0.00-0.20); Basophils % (auto) 0.2 %; Eosinophils # (auto) 0.07 K/uL (0.00-0.50); Eosinophils % (auto) 0.8 %; Hemoglobin 11.5 g/dl (14.0-18.0); Immature Granulocytes # (auto) 0.04 K/uL (0.01-0.20); Immature Granulocytes % (auto) 0.5 %; Lymphocytes # (auto) 2.42 K/uL (1.20-3.40); Mean Corpuscular Hemoglobin 33.5 pg (25.0-34.0); Mean Corpuscular Hgb Conc 31.9 g/dL (32.0-36.0); Monocytes % (auto) 8.1 %; Neutrophils # (auto) 5.38 K/uL (1.40-6.50); Neutrophils % (auto) 62.4 %; Platelet Count 225 K/uL (130-400); RDW Coefficient of Variation 16.4 % (11.5-14.5); RDW Standard Deviation 63.7 fL (36.4-46.3); Red Blood Count 3.43 M/uL (4.70-6.10); White Blood Count 8.63 K/ul (4.8-10.8)
[2023-09-07 07:12] LABS: Albumin Globulin Ratio 1.3 (0.9-2); Albumin Level 3.4 gm/dl (3.4-5.0); BUN Creatinine Ratio 19.6 (10-20); Bilirubin,Total 0.7 mg/dl (0.2-1.0); Calcium 8.3 mg/dl (8.6-10.3); Creatinine Clr Calc Pharmacy 38.8 ml/min; Est GFR (African American) 47.4 ml/min; Est GFR (Non-African American) 40.9 ml/min; Globulin 2.6 gm/dl (2.5-4.0); Magnesium 2.2 mg/dl (1.7-2.4)
--- NOTE | 2023-09-07 08:11 | Hospitalist Progress Note ---
Date of Service September 07, 2023 Assessment & Plan (1) Wound dehiscence: Plan: Admit PCU- stable on his baseline 3L NC, and non-toxic appearing s/p right BKA with Dr. Worrell on 07/26/23 for recurrent right diabetic foot infections, had been on 10 day course Levaquin for possible infection at surgical site prior to admission Unfortunately, had been doing well at rehab but sustained fall AM 09/04 while transfering from bed to wheelchair and sustained dehiscence of RIGHT BKA wound, wrapped in ER. Dr Worrell out of town until 09/09 Dr Jordan from orthopedics agreed to take patient to OR for I&D, wound RN consulted Given Cephalexin in ER, continued on Unasyn on admission 09/06 s/p irrigation debridement and Closure of Right Below Knee Amputation Dehiscence.(Right) - Monico Jordan MD on 09/04 EBL 15cc, hemovac placed (removed this morning by orthopedics 09/06) WBC wnl Blood cultures remain NGTD, afebrile Discussed w/ pharmacist as Unasyn ordered to continue but was q8h dosing instead of q6h. Adjustment made and continues on Unasyn for now/adjustments pending cx results OR sample--> Gram stain w/ rare GPC- cx preliminary without growth to date at this time Pain control, bowel regimen Eliquis resumed post-op Holding diuretics, HR elevated but on baseline 3L/no increase SOB --> ordered 1L IVF for dehydration on monitor and will monitor HR/BP. Consider increasing his BB given his afib/flutter if needed. Keep mag/K replete Also checking UA/cx from nephrostomy tubing, draining but having some foul odor as well/slightly cloudy R shoulder pain/decreased ROM. Voltaren gel added and discussed w/ ortho, recs for CT for further eval --> IMPRESSION: Bony fracture arising from the tip of the acromion may represent nondisplaced fracture or chronic bony fragment. Correlation with point tender ness is recommended. -->Ortho messaged, to eval, possible sling/WBAT and do no suspect any intervention, they may consider steroid injection. Continue pain control/sling for now PT/OT consulted, able to return to rehab once medically stable but likely to remain inpatient through the weekend Monitor labs/exam in AM (2) Fall: Plan: Mechanical fall due to his wheelchair tipping over while he was trying to transfer . No LOC/head trauma Initial shoulder X ray negative for acute fracture, CT shoulder as above Voltaren gel/pain control, therapy evals CT RIGHT shoulder IMPRESSION:Bony fracture arising from the tip of the acromion may represent nondisplaced fracture or chronic bony fragment. Correlation with point tenderness is recommended. Sling ordered, in place Nephrostomy draining without issue but cloudy/foul smelling today and going to obtain sample for eval/adjustment to abx as needed (3) Chronic HFrEF (heart failure with reduced ejection fraction): Plan: Currently euvolemic on exam /slightly dry 09/05 but held off IVF (also on admission) due to LVEF 25% Lasix placed on hold as appeared dry but held off IVF however still dry but taking PO and 1L NSS ordered (BUN/Cr 32/1.63) Continue carvedilol Monitor volume status/weight in AM (slight up but no LLE edema on exam/worsened respiratory exam), resume lasix as able/needed 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 Will monitor for need for CTAP given fall on admission if ongoing issues (5) Right shoulder pain: Plan: Patient has increased right shoulder pain and decreased ROM compared to baseline since his fall Sensation and radial pulse are intact No acute trauma on xray , however CT shoulder as above. Ortho already on board given I&D re-eval. Agreed to continue sling/ice/pain control. Consideration for steroid injection Therapy evals as above (6) Atrial fibrillation: Plan: Stable , slight elevation but suspect aspect of pain and dehydration/infection Afib/flutter, rates 90-110s this morning but up to 130-140s at times w/ activity and pain while changing dressing/removing hemovac AM 09/06 Remains on carvedilol, eliquis resumed post op and will continue to monitor on telemetry . Keep mag/k replete (7) Chronic respiratory failure with hypoxia: Plan: Stable Continue 3L NC at all times Incentive spirometry some scattered crackles but denies any increased SOB above baseline or change in sputum production Added incentive spirometer/flutter valve, continue On Unasyn as above, can add atypical if any change in sputum production Monitor for any changes (8) CAD (coronary artery disease): Plan: Continue aspirin, statin, and carvedilol (9) CLL (chronic lymphocytic leukemia): Plan: CBC is stable today 11.5 in setting of surgery and will monitor Continue to follow up with heme/onc on discharge (10) Diabetes mellitus, type 2: Plan: Jardiance initially held --> resumed given for CHF and holding his home lasix ( EF ~25%) Basal/bolus while inpatient with acceptable BSGs and will monitor (11) NYLA (acute kidney injury): Plan: in patient w/ nephrostomy tube/infection as above lasix initially continued but placed on hold, did defer on IVF given LVEF reduced as above but appeared dry on exam and 1L IVF ordered Checking UA/cx as outlined Consider CTAP if needing Renal dose meds/avoid nephrotoxins as able BMP in AM Plan continued inpatient stay on abx/monitor cxs. Unasyn increased to q6h. F/u urine cx and if any further concerns/abdominal pain would consider CTAP Therapy evals ordered and able to return to [facility] once medically stable but suspect will be inpatient through the weekend Admission and Anticipated Discharge Date Admission Date: September 05, 2023 Supervising Physician Co-Signing Physician Notes The patient was not seen by me. The chart was reviewed. Case discussed with KHADIJAH Del Rio. Agree with assessment and plan Subjective Evaluated this morning, Nephrostomy draining but slightly cloudy/concentrated. Appears dry on exam, ordered 1L NSS and diuretics on hold. Denies any increased SOB from baseline. Pain w/ changing dressing/removal of wound vac but denies need for any medication for pain at this time. Hopeful to be able to get him back to rehab once stable but discussed likely with us through the weekend. Has sling in place to his right shoulder, improvement in some pain w/ voltaren but mentioned about orthopedics considering injection? Unclear timing of injection. Discussed w/ pharmacist given Unasyn abx -- Unasyn dosing increased to q6h from q8h dosing which was ordered initially by admission team but ordered q8h following surgery by orthopedic service. Questions/concerns addressed at this time. Physical Exam Physical Exam: General: 73yo male sitting up in chair, NAD but mildly uncomfortable to BKA since hemovac removal/dressing change just done by orthopedics HEENT: head atraumatic, normocephalic, mm slightly dry, trachea midline Resp: scattered crackles bilaterally, diminished in the bases but no significant wheezing, on baseline 3L NC CV: irregularly irregular, rates 90-110s, +systolic murmur, NO pitting edema GI: +BS, soft/NT, L nephrostomy bag w/ pink tinged urine MSK/Neuro: RIGHT BKA s/o I&D, wrapped/splint in place, dressing NOT removed, no significant findings to LLE RIGHT SHOULDER with decreased ROM/tenderness to joint reported, sling in place no significant ecchymosis/redness, no obvious bony step offs Psych: AOx3, cooperative with exam Results & Data Results & Data Vital Signs (Past 12 Hours) Vital Signs Temp Pulse Pulse Pulse Resp BP BP 09/07/23 07:34 36.6 C 117 H 20 116/67 09/07/23 07:00 103 H 09/07/23 03:35 36.5 C 110 H 18 109/62 09/06/23 22:52 36.5 C 96 H 16 119/69 09/06/23 22:04 103 H 09/06/23 20:45 Pulse Ox O2 Del Method O2 Flow Rate 09/07/23 07:34 91 Nasal Cannula 3 09/07/23 07:00 09/07/23 03:35 95 Nasal Cannula 3 09/06/23 22:52 94 Nasal Cannula 09/06/23 22:04 09/06/23 20:45 Nasal Cannula 3 Laboratory Results 09/07/23 09/07/23 09/06/23 Range/Units 08:01 06:24 20:45 WBC 8.63 (4.8-10.8) K/ul RBC 3.43 L (4.70-6.10) M/uL Hgb 11.5 L (14.0-18.0) g/dl Hct 36.0 L (42.0-52.0) % MCV 105.0 H (80.0-100.0) fL MCH 33.5 (25.0-34.0) pg MCHC 31.9 L (32.0-36.0) g/dL RDW Std Deviation 63.7 H (36.4-46.3) fL RDW Coeff of Sharmaine 16.4 H (11.5-14.5) % Plt Count 225 (130-400) K/uL MPV 11.0 (9.4-12.4) fL Immature Gran % (Auto) 0.5 % Neut % (Auto) 62.4 % Lymph % (Auto) 28.0 % [place] % (Auto) 8.1 % Eos % (Auto) 0.8 % Baso % (Auto) 0.2 % Neut # (Auto) 5.38 (1.40-6.50) K/uL Lymph # (Auto) 2.42 (1.20-3.40) K/uL [place] # (Auto) 0.70 H (0.11-0.59) K/uL Eos # (Auto) 0.07 (0.00-0.50) K/uL Baso # (Auto) 0.02 (0.00-0.20) K/uL Immature Gran # (Auto) 0.04 (0.01-0.20) K/uL Platelet Estimate (Normal) Sodium 142 (136-145) mmol/L Potassium 4.0 (3.5-5.1) mmol/L Chloride 105 (98-107) mmol/L Carbon Dioxide 34 H (21-32) mmol/L Anion Gap 3 (3-11) BUN 32 H (6-23) mg/dl Creatinine 1.63 H (0.6-1.4) mg/dl Est Cr Clr Drug Dosing 38.8 ml/min Est GFR ( Amer) 47.4 ml/min Est GFR (Non-Af Amer) 40.9 ml/min BUN/Creatinine Ratio 19.6 (10-20) Glucose 104 H (70-99(Fasting)) mg/dl POC Glucose 97 139 H (70-99) mg/dl Calcium 8.3 L (8.6-10.3) mg/dl Magnesium 2.2 (1.7-2.4) mg/dl Total Bilirubin 0.7 (0.2-1.0) mg/dl AST 16 (13-39) U/L ALT 5 L (7-52) U/L Alkaline Phosphatase 74 (34-104) U/L Total Protein 6.0 (6.0-8.3) gm/dl Albumin 3.4 (3.4-5.0) gm/dl Globulin 2.6 (2.5-4.0) gm/dl Albumin/Globulin Ratio 1.3 (0.9-2) Vitamin B12 (180-914) pg/ml Folate (>5.38) ng/ml 09/06/23 09/06/23 09/06/23 Range/Units 16:53 12:06 08:15 WBC (4.8-10.8) K/ul RBC (4.70-6.10) M/uL Hgb (14.0-18.0) g/dl Hct (42.0-52.0) % MCV (80.0-100.0) fL MCH (25.0-34.0) pg MCHC (32.0-36.0) g/dL RDW Std Deviation (36.4-46.3) fL RDW Coeff of Sharmaine (11.5-14.5) % Plt Count (130-400) K/uL MPV (9.4-12.4) fL Immature Gran % (Auto) % Neut % (Auto) % Lymph % (Auto) % [place] % (Auto) % Eos % (Auto) % Baso % (Auto) % Neut # (Auto) (1.40-6.50) K/uL Lymph # (Auto) (1.20-3.40) K/uL [place] # (Auto) (0.11-0.59) K/uL Eos # (Auto) (0.00-0.50) K/uL Baso # (Auto) (0.00-0.20) K/uL Immature Gran # (Auto) (0.01-0.20) K/uL Platelet Estimate (Normal) Sodium (136-145) mmol/L Potassium (3.5-5.1) mmol/L Chloride (98-107) mmol/L Carbon Dioxide (21-32) mmol/L Anion Gap (3-11) BUN (6-23) mg/dl Creatinine (0.6-1.4) mg/dl Est Cr Clr Drug Dosing ml/min Est GFR ( Amer) ml/min Est GFR (Non-Af Amer) ml/min BUN/Creatinine Ratio (10-20) Glucose (70-99(Fasting)) mg/dl POC Glucose 124 H 121 H (70-99) mg/dl Calcium (8.6-10.3) mg/dl Magnesium (1.7-2.4) mg/dl Total Bilirubin (0.2-1.0) mg/dl AST (13-39) U/L ALT (7-52) U/L Alkaline Phosphatase (34-104) U/L Total Protein (6.0-8.3) gm/dl Albumin (3.4-5.0) gm/dl Globulin (2.5-4.0) gm/dl Albumin/Globulin Ratio (0.9-2) Vitamin B12 885 (180-914) pg/ml Folate > 22.30 (>5.38) ng/ml 09/06/23 Range/Units 07:00 WBC 8.97 (4.8-10.8) K/ul RBC 3.49 L (4.70-6.10) M/uL Hgb 11.6 L (14.0-18.0) g/dl Hct 36.0 L (42.0-52.0) % MCV 103.2 H (80.0-100.0) fL MCH 33.2 (25.0-34.0) pg MCHC 32.2 (32.0-36.0) g/dL RDW Std Deviation 63.7 H (36.4-46.3) fL RDW Coeff of Sharmaine 16.6 H (11.5-14.5) % Plt Count 246 (130-400) K/uL MPV 11.1 (9.4-12.4) fL Immature Gran % (Auto) 0.4 % Neut % (Auto) 63.3 % Lymph % (Auto) 28.0 % [place] % (Auto) 7.2 % Eos % (Auto) 0.8 % Baso % (Auto) 0.3 % Neut # (Auto) 5.67 (1.40-6.50) K/uL Lymph # (Auto) 2.51 (1.20-3.40) K/uL [place] # (Auto) 0.65 H (0.11-0.59) K/uL Eos # (Auto) 0.07 (0.00-0.50) K/uL Baso # (Auto) 0.03 (0.00-0.20) K/uL Immature Gran # (Auto) 0.04 (0.01-0.20) K/uL Platelet Estimate Normal (Normal) Sodium (136-145) mmol/L Potassium (3.5-5.1) mmol/L Chloride (98-107) mmol/L Carbon Dioxide (21-32) mmol/L Anion Gap (3-11) BUN (6-23) mg/dl Creatinine (0.6-1.4) mg/dl Est Cr Clr Drug Dosing ml/min Est GFR ( Amer) ml/min Est GFR (Non-Af Amer) ml/min BUN/Creatinine Ratio (10-20) Glucose (70-99(Fasting)) mg/dl POC Glucose (70-99) mg/dl Calcium (8.6-10.3) mg/dl Magnesium (1.7-2.4) mg/dl Total Bilirubin (0.2-1.0) mg/dl AST (13-39) U/L ALT (7-52) U/L Alkaline Phosphatase (34-104) U/L Total Protein (6.0-8.3) gm/dl Albumin (3.4-5.0) gm/dl Globulin (2.5-4.0) gm/dl Albumin/Globulin Ratio (0.9-2) Vitamin B12 (180-914) pg/ml Folate (>5.38) ng/ml Diagnostic Findings Chest X-Ray 09/06/23 10:44 XR chest 1V portable CLINICAL HISTORY: f/u pulm congestion TECHNIQUE: Single frontal radiograph of the chest was obtained. Comparison: Comparison is made to chest radiograph 09/05/2023 FINDINGS: Pacemaker defibrillator is seen. Median sternotomy wires are seen. Peribronchial thickening is noted. Prominence and cephalization of the vasculature is seen. No evidence of pleural effusion or pneumothorax. IMPRESSION: 1. Cardiomegaly is seen. Previously noted pulmonary edema has improved. 2. Bronchial wall thickening may represent infectious/inflammatory airways disease. ACT 112: Negative or not required by law. Electronically signed by: Jay Ricketts M.D. 09/06/2023 11:[address] 09/06/23 11:02 CT shoulder RT wo con CLINICAL HISTORY: fall, decreased ROM/R shoulder pain, eval fracture TECHNIQUE: Multidetector row helical CT of the right shoulder was performed without intravenous contrast. Coronal and sagittal reformations were obtained. Automated dose lowering techniques and/or adjustment according to patient size were utilized for this examination. CT DOSE: 464.45 mGy.cm Comparison: Comparison is made to right shoulder radiographs 09/05/2023 FINDINGS: Degenerative changes are seen in the acromioclavicular joint. There is a bony fragment arising from the anterior tip of the acromion. The soft tissues are unremarkable. IMPRESSION: Bony fracture arising from the tip of the acromion may represent nondisplaced fracture or chronic bony fragment. Correlation with point tenderness is recommended. ACT 112: Negative or not required by law. Electronically signed by: Jay Ricketts M.D. 09/06/2023 1:46 PM PG Care Time/CCT Total # of Minutes Spent Total Time Spent with Patient: Total time spent is greater than 50% in coordination of care (as documented) at patient's floor/unit and/or counseling patient: Coding Level of Care Code 67645 SUB INP/OBS CARE 3/50MIN Diagnoses Wound dehiscence T81.30XA Fall W19.XXXA Chronic HFrEF (heart failure with reduced ejection fraction) I50.22 Nephrostomy status Z93.6 Right shoulder pain M25.511 Chronicity: acute Atrial fibrillation I48.91 Chronic respiratory failure with hypoxia J96.11 CAD (coronary artery disease) I25.10 CLL (chronic lymphocytic leukemia) C91.10 Diabetes mellitus, type 2 E11.9 NYLA (acute kidney injury) N17.9 (5) Right shoulder pain Chronicity: acute Qualified Code(s): M25.511 - Pain in right shoulder
[2023-09-07] MEDS: EMPAGLIFLOZIN 10 MG TAB PO SCH (08:26)
[2023-09-07] MEDS: SODIUM CHLORIDE 0.9% 1,000 ML IV SCH (09:08)
--- NOTE | 2023-09-07 10:23 | Orthopedic Progress Note ---
Date of Service September 07, 2023 Assessment & Plan (1) Dehiscence of wound: Plan: New dressing was applied and splint was reapplied. Drain was pulled DVT prophylaxis with Eliquis Pain controlled p.o. medication PT/OT Will need placement in a rehab or custodial facility Follow-up at [facility] orthopedics in 10 to 14 days after discharge With questions contact our clinic at [phone] (2) Right shoulder pain: Plan: Continue use of sling to offload pressure on the right upper extremity. Ice with easy wrap PT/OT Pain control with p.o. medication. May consider corticosteroid injection Admission and Anticipated Discharge Date Admission Date: September 05, 2023 Subjective This 73-year-old male is 2 days status post irrigation and debridement of wound dehiscence of his right BKA. Patient states that he is doing fairly well. He states that his biggest issue today is that he is having continued shoulder pain. He is currently using a sling. States that his pain is well-controlled in the lower extremity. He states that he has a history of rotator cuff insuf ficiency in the right shoulder. He localizes most of the pain over the anterior aspect. Otherwise, he denies chest pain, shortness of breath, fever, chills, sweats, nausea, vomiting or diarrhea. Review of Systems Review of Systems: All systems reviewed & are unremarkable except as noted in Subjective Physical Exam Physical Exam: Right lower extremity: Dressing was removed from the patient's right lower extremity. Splint was also removed. Surgical incision site is closed completely with no palpable fluctuance or active drainage. Patient is able to actively forward flex at the hip and is able to bend at the knee joint to 90 degrees. I applied a new dressing consisting of Xeroform, 4 x 4's, ABDs. I have fully padding the area with cast padding reapplied the splints and kept in place with an Omid bandage. I did pull the drain because it was not actively draining. Patient was able to detect light sensation to touch over his thigh and to the area just proximal to the surgical incision site. Right shoulder: Sling was removed from the patient's right shoulder. He localizes most of his pain over the bicipital groove has tenderness to palpation of this area. He is unable to forward flex or AB duct the arm actively. And has significant pain referred to the anterior shoulder with passive forward flexion and abduction. He has pain with Neer and Goncalves Donato impingement tests. He has no pain with crossarm testing. I was unable to passively AB duct and internally and externally rotate due to the patient's pain. He was able to reach terminal flexion and extension of his elbow without issue. He had full range of motion of his hand and wrist and fingers and was able to detect light sensation to touch. He also has some mild tenderness to palpation over the AC joint but no tenderness over the glenohumeral groove or posterior shoulder musculature. Patient was neurovascularly intact in the right upper extremity. Results & Data Vital Signs (Past 12 Hours) Vital Signs Temp Pulse Pulse Pulse Resp BP BP 09/07/23 08:00 09/07/23 07:34 36.6 C 117 H 20 116/67 09/07/23 07:00 103 H 09/07/23 03:35 36.5 C 110 H 18 109/62 09/06/23 22:52 36.5 C 96 H 16 119/69 Pulse Ox O2 Del Method O2 Flow Rate 09/07/23 08:00 Room Air 09/07/23 07:34 91 Nasal Cannula 3 09/07/23 07:00 09/07/23 03:35 95 Nasal Cannula 3 09/06/23 22:52 94 Nasal Cannula Diagnostic Findings Laboratory Results WBC 8.63 K/ul (4.8-10.8) 09/07/23 06:24 RBC 3.43 M/uL (4.70-6.10) L 09/07/23 06:24 Hgb 11.5 g/dl (14.0-18.0) L 09/07/23 06:24 Hct 36.0 % (42.0-52.0) L 09/07/23 06:24 MCV 105.0 fL (80.0-100.0) H 09/07/23 06:24 MCH 33.5 pg (25.0-34.0) 09/07/23 06:24 MCHC 31.9 g/dL (32.0-36.0) L 09/07/23 06:24 RDW Std Deviation 63.7 fL (36.4-46.3) H 09/07/23 06:24 RDW Coeff of Sharmaine 16.4 % (11.5-14.5) H 09/07/23 06:24 Plt Count 225 K/uL (130-400) 09/07/23 06:24 MPV 11.0 fL (9.4-12.4) 09/07/23 06:24 Immature Gran % (Auto) 0.5 % 09/07/23 06:24 Neut % (Auto) 62.4 % 09/07/23 06:24 Lymph % (Auto) 28.0 % 09/07/23 06:24 [place] % (Auto) 8.1 % 09/07/23 06:24 Eos % (Auto) 0.8 % 09/07/23 06:24 Baso % (Auto) 0.2 % 09/07/23 06:24 Neut # (Auto) 5.38 K/uL (1.40-6.50) 09/07/23 06:24 Lymph # (Auto) 2.42 K/uL (1.20-3.40) 09/07/23 06:24 [place] # (Auto) 0.70 K/uL (0.11-0.59) H 09/07/23 06:24 Eos # (Auto) 0.07 K/uL (0.00-0.50) 09/07/23 06:24 Baso # (Auto) 0.02 K/uL (0.00-0.20) 09/07/23 06:24 Immature Gran # (Auto) 0.04 K/uL (0.01-0.20) 09/07/23 06:24 Platelet Estimate Normal (Normal) 09/06/23 07:00 PT 11.4 Seconds (9.0-12.0) 09/06/23 06:34 INR 1.1 (0.9-1.1) 09/06/23 06:34 APTT 29 Seconds (21-31) 09/05/23 12:33 PTT Ratio 1.1 09/05/23 12:33 Sodium 142 mmol/L (136-145) 09/07/23 06:24 Potassium 4.0 mmol/L (3.5-5.1) 09/07/23 06:24 Chloride 105 mmol/L (98-107) 09/07/23 06:24 Carbon Dioxide 34 mmol/L (21-32) H 09/07/23 06:24 Anion Gap 3 (3-11) 09/07/23 06:24 BUN 32 mg/dl (6-23) H 09/07/23 06:24 Creatinine 1.63 mg/dl (0.6-1.4) H 09/07/23 06:24 Est Cr Clr Drug Dosing 38.8 ml/min 09/07/23 06:24 Est GFR ( Amer) 47.4 ml/min 09/07/23 06:24 Est GFR (Non-Af Amer) 40.9 ml/min 09/07/23 06:24 BUN/Creatinine Ratio 19.6 (10-20) 09/07/23 06:24 Glucose 104 mg/dl (70-99(Fasting)) H 09/07/23 06:24 POC Glucose 97 mg/dl (70-99) 09/07/23 08:01 Calcium 8.3 mg/dl (8.6-10.3) L 09/07/23 06:24 Magnesium 2.2 mg/dl (1.7-2.4) 09/07/23 06:24 Total Bilirubin 0.7 mg/dl (0.2-1.0) 09/07/23 06:24 AST 16 U/L (13-39) 09/07/23 06:24 ALT 5 U/L (7-52) L 09/07/23 06:24 Alkaline Phosphatase 74 U/L (34-104) 09/07/23 06:24 Total Protein 6.0 gm/dl (6.0-8.3) 09/07/23 06:24 Albumin 3.4 gm/dl (3.4-5.0) 09/07/23 06:24 Globulin 2.6 gm/dl (2.5-4.0) 09/07/23 06:24 Albumin/Globulin Ratio 1.3 (0.9-2) 09/07/23 06:24 Vitamin B12 885 pg/ml (180-914) 09/06/23 08:15 Folate > 22.30 ng/ml (>5.38) 09/06/23 08:15 TSH 2.439 uIu/ml (0.300-4.500) 09/05/23 12:33 Nasal Screen MRSA (PCR) Negative (Negative) 09/05/23 Unknown Blood Type O Positive 09/05/23 14:48 Antibody Screen NEGATIVE 09/05/23 14:48 Impressions Shoulder X-Ray 09/05/23 12:26 XR shoulder RT min 2V routine CLINICAL HISTORY: fall, shoulder pain TECHNIQUE: 3 views of the right shoulder were obtained. Comparison: None available at the time of this dictation. FINDINGS: There is no evidence of an acute fracture. Degenerative changes are seen in the glenohumeral joint. The overlying soft tissues are unremarkable. The visualized portions of the lungs are clear. IMPRESSION: Degenerative changes without evidence of acute abnormality. ACT 112: Negative or not required by law. Electronically signed by: Jay Ricketts M.D. 09/05/2023 1:55 PM Knee X-Ray 09/05/23 19:32 XR knee RT 1 or 2V routine CLINICAL HISTORY: Surgical Post Op COMPARISON: Right knee radiographs performed earlier today. FINDINGS: Postoperative findings consistent with right below-knee amputation. There are no fractures or radiopaque foreign bodies. Surgical drain is in place. Extensive vascular calcification is incidentally noted. IMPRESSION: Status post right below knee amputation. Surgical drain in place. No unexpected radiopaque foreign bodies. ACT 112: Negative or not required by law. Electronically signed by: Biju Lr M.D. 09/06/2023 7:48 AM Chest X-Ray 09/06/23 10:44 XR chest 1V portable CLINICAL HISTORY: f/u pulm congestion TECHNIQUE: Single frontal radiograph of the chest was obtained. Comparison: Comparison is made to chest radiograph 09/05/2023 FINDINGS: Pacemaker defibrillator is seen. Median sternotomy wires are seen. Peribronchial thickening is noted. Prominence and cephalization of the vasculature is seen. No evidence of pleural effusion or pneumothorax. IMPRESSION: 1. Cardiomegaly is seen. Previously noted pulmonary edema has improved. 2. Bronchial wall thickening may represent infectious/inflammatory airways disease. ACT 112: Negative or not required by law. Electronically signed by: Jay Ricketts M.D. 09/06/2023 11:[address] 09/06/23 11:02 CT shoulder RT wo con CLINICAL HISTORY: fall, decreased ROM/R shoulder pain, eval fracture TECHNIQUE: Multidetector row helical CT of the right shoulder was performed with out intravenous contrast. Coronal and sagittal reformations were obtained. Automated dose lowering techniques and/or adjustment according to patient size were utilized for this examination. CT DOSE: 464.45 mGy.cm Comparison: Comparison is made to right shoulder radiographs 09/05/2023 FINDINGS: Degenerative changes are seen in the acromioclavicular joint. There is a bony fragment arising from the anterior tip of the acromion. The soft tissues are unremarkable. IMPRESSION: Bony fracture arising from the tip of the acromion may represent nondisplaced fracture or chronic bony fragment. Correlation with point tenderness is recommended. ACT 112: Negative or not required by law. Electronically signed by: Jay Ricketts M.D. 09/06/2023 1:46 PM (2) Right shoulder pain Chronicity: acute Qualified Code(s): M25.511 - Pain in right shoulder
[2023-09-07 10:38] LABS: Appearance Urine Turbid (Clear); Bacteria Urine Automated 4+ (None Seen); Bilirubin Urine Negative (Negative); Blood Urine 3+ (Negative); Color Urine Yellow; Epithelial Cell Urine Auto 0-2 /hpf (0-2); Glucose Urine UA Negative (Negative); Ketones Urine Negative (Negative); Leukocyte Esterase Urine 3+ (Negative); Nitrite Urine Negative (Negative); Protein Urine 3+ (Negative); RBC Urine Automated >20 /hpf (0-2); Specific Gravity Urine 1.009 (1.000-1.030); Urobilinogen Urine Negative (Negative); WBC Urine Automated 21-50 /hpf (0-5)
[2023-09-07] MEDS: HYDROmorphone INJ 0.5 MG/0.5 ML SYR IV PRN (11:25)
[2023-09-07] MEDS: AMPICILLIN/SULBACTAM SOD 3,000 MG in SODIUM CHLOR 0.9% MINI-B 100 ML IV SCH (12:20)
--- NOTE | 2023-09-07 13:09 | Pharmacy Report ---
Pharmacy Glycemic Short Note 2 - Date of Service September 07, 2023 - Glycemic Short BSG Results (Last 24 hours): 09/06/23 09/06/23 09/07/23 16:53 20:45 06:24 Glucose 104 H POC Glucose 124 H 139 H 09/07/23 09/07/23 08:01 12:10 Glucose POC Glucose 97 107 H OUTPATIENT ANTIDIABETIC REGIMEN: * Jardiance 10mg PO Daily * A1c 6.8% 07/18/23 ASSESSMENT: 09/06 * BSGs have been stable [phone] mg/dL yesterday, Jardiance was held in AM but has been resumed * Continue current novolog parameters, hold basal * Plan for rehab or halfway facility 09/04 * 73 yo M, PMH right foot infections S/P right BKA on 07/26/[address] Worrell, AFib, DMII, CHF, right BKA site dehiscence and right shoulder pain after sustaining mechanical fall. * s/p I&D R BKA, glycemic consult, managed on Jardiance alone at home, euglycemic, no steroids. Heart healthy diet ordered for dinner tonight. * Continue Jardiance in patient with Heart Failure, and use NovoLog CF/CR only at this time. Will add basal if needed. PLAN FOR INPATIENT GLYCEMIC CONTROL: * Jardiance 10mg PO daily * Basal insulin * None at this time * Bolus insulin * NovoLog per scale ACHS or Q6hrs while NPO * Goal Range: Low 110 mg/dL - High 140 mg/dL * Correction Factor: 50 mg/dL/unit * Nutritional / Prandial insulin per carb ratio of 1 unit per 15 grams CHO consumed
[2023-09-08 02:27] LABS: Basophils # (auto) 0.03 K/uL (0.00-0.20); Basophils % (auto) 0.3 %; Eosinophils # (auto) 0.07 K/uL (0.00-0.50); Eosinophils % (auto) 0.7 %; Hemoglobin 11.2 g/dl (14.0-18.0); Immature Granulocytes # (auto) 0.03 K/uL (0.01-0.20); Immature Granulocytes % (auto) 0.3 %; Lymphocytes # (auto) 2.43 K/uL (1.20-3.40); Lymphocytes % (auto) 25.7 %; Mean Corpuscular Hemoglobin 33.3 pg (25.0-34.0); Mean Corpuscular Volume 104.2 fL (80.0-100.0); Mean Platelet Volume 11.1 fL (9.4-12.4); Monocytes # (auto) 0.69 K/uL (0.11-0.59); Monocytes % (auto) 7.3 %; Neutrophils % (auto) 65.7 %; Platelet Count 239 K/uL (130-400); RDW Coefficient of Variation 16.5 % (11.5-14.5); RDW Standard Deviation 63.6 fL (36.4-46.3); Red Blood Count 3.36 M/uL (4.70-6.10); White Blood Count 9.45 K/ul (4.8-10.8)
[2023-09-08 02:38] LABS: Albumin Globulin Ratio 1.3 (0.9-2); Albumin Level 3.5 gm/dl (3.4-5.0); BUN Creatinine Ratio 23.7 (10-20); Bilirubin,Total 0.7 mg/dl (0.2-1.0); Calcium 8.6 mg/dl (8.6-10.3); Creatinine Clr Calc Pharmacy 45.5 ml/min; Est GFR (African American) 57.5 ml/min; Est GFR (Non-African American) 49.6 ml/min; Globulin 2.6 gm/dl (2.5-4.0); Magnesium 2.1 mg/dl (1.7-2.4); Potassium 4.2 mmol/L (3.5-5.1); Total Protein 6.1 gm/dl (6.0-8.3)
--- NOTE | 2023-09-08 08:05 | Hospitalist Progress Note ---
Date of Service September 08, 2023 Assessment & Plan (1) Wound dehiscence: Plan: Admit PCU- stable on his baseline 3L NC, and non-toxic appearing s/p right BKA with Dr. Worrell on 07/26/23 for recurrent right diabetic foot infections, had been on 10 day course Levaquin for possible infection at surgical site prior to admission Unfortunately, had been doing well at rehab but sustained fall AM 09/04 while transfering from bed to wheelchair and sustained dehiscence of RIGHT BKA wound, wrapped in ER. Dr Worrell out of town until 09/09 Dr Jordan from orthopedics agreed to take patient to OR for I&D, wound RN consulted Given Cephalexin in ER, continued on Unasyn on admission s/p irrigation debridement and Closure of Right Below Knee Amputation Dehiscence.(Right) - Monico Jordan MD on 09/04 EBL 15cc, hemovac placed (removed this morning by orthopedics 09/06) Discussed w/ pharmacist as Unasyn ordered to continue but was q8h dosing instead of q6h --> INCREASED TO q6H 09/06 09/07 Continues on Unasyn for now OR cx GPC on preliminary -- monitor for now. No hx MRSA however recent hospitalization/surgery and will monitor/adjust abx as needed. WBC wnl at present time and remains afebrile Blood cultures NGTD 1L IVF on 09/06 for dehydration/tachycardia as not ordered on admission and lasix continued on hold. +Additional 1L NSS for today given ongoing dehydration and improvement in renal function -- actually titrated from 3L --> 2L NC w/ IVF (baseline is 3L) and will monitor volume status given LVEF 25%. Mag/k replacement as needed and did have 2 occurrences of vtach on monitor (10 beat run at 1:24 am, 8 beat at 417). Continued telemetry monitoring Pain control, bowel regimen --> Distended today, attempting to move bowels. KUB w/ mod-large amt well formed stool within colon/rectum. RN to give suppository as well Also, nephrostomy draining concentrated/cloudy/foul urine yesterday, sample sent and monitoring. Urology consulted but recs against tx as colonized but will monitor Therapy evals - able to return to [facility] for ongoing rehab once medically stable but remaining inpatient through weekend Monitor labs/exam on repeat (2) Fall: Plan: Mechanical fall due to his wheelchair tipping over while he was trying to transfer . No LOC/head trauma Initial shoulder X ray negative for acute fracture, CT shoulder as above Voltaren gel/pain control, therapy evals CT RIGHT shoulder for further eval IMPRESSION:Bony fracture arising from the tip of the acromion may represent nondisplaced fracture or chronic bony fragment. Correlation with point tenderness is recommended. Sling ordered, in place, consideration for injection per orthopedics Nephrostomy draining without issue but cloudy/foul smelling today and going to obtain sample for eval/adjustment to abx as needed (3) Chronic HFrEF (heart failure with reduced ejection fraction): Plan: Currently euvolemic on exam /slightly dry 09/05 but held off IVF (also on admission) due to LVEF 25% Lasix placed on hold, appeared DRY 09/06 and 1L NSS provided (BUN/Cr 32/1.63)--> renal function improved but remained dehydrated on appearance/decreased PO intake due to constipation. Additional 1L IVF for today, cautious monitoring volume status Remains on carvedilol Monitor weights/I&O Resume lasix when able/needed pending repeat eval 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 Appears to be functioning well, renal function is stable Monitor output QSE UA/cx as above, urology consult in place. Consideration for ID consult if needed however urology reporting colonized/would not treat mission if ongoing issues (5) Right shoulder pain: Plan: Patient has increased right shoulder pain and decreased ROM compared to baseline since his fall Sensation and radial pulse are intact No acute trauma on xray , CT shoulder obtained given ongoing pain/fall onto his R shoulder w/ underlying rotator cuff insuff at baseline CT shoulder IMPRESSION: Bony fracture arising from the tip of the acromion may represent nondisplaced fracture or chronic bony fragment. Correlation with point tenderness is recommended. Ortho on consult as above, agreed to continue sling, ice, pain control. Consideration for injection at some point Ongoing therapy evals/rehab at [facility] planned when medically stable (6) Atrial fibrillation: Plan: Stable , elevations in setting infection/pain as well as dehydration Lopressor ordered for this morning, remains on carvedilol eliquis resumed post-operatively IVF as above, continued telemetry monitoring and electrolyte replacement as needed (7) Chronic respiratory failure with hypoxia: Plan: Stable at present time/no worse per patient. On 3L at baseline Incentive spirometer, flutter valve Diuretics on hold as above however on 2L as above and will continue to monitor. On Unasyn and denied any sputum production/increased SOB at this time Monitor (8) CAD (coronary artery disease): Plan: Continue aspirin, statin, and carvedilol (9) CLL (chronic lymphocytic leukemia): Plan: CBC is stable today 11.2 in setting of surgery/IVF and will monitor Continue to follow up with heme/onc on discharge (10) Diabetes mellitus, type 2: Plan: Jardiance initially held --> resumed given for CHF and holding his home lasix (EF ~25%) Basal/bolus while inpatient with acceptable BSGs and will monitor, pharmacy consulted (11) NYLA (acute kidney injury): Plan: Cr 1.3 on admission, IVF deferred given LVEF 25% and lasix had been continued 40mg PO BID Cr bumped to 1.44 on repeat labs, dehydrated on exam and lasix placed on HOLD AM 09/05 and had been taking PO and deferred on IVF however Cr bumped to 1.63 and dehydrated/tachy and added 1L NSS on 09/06 Cr improved, 1.63--> 1.39 Additional 1L NSS for today, lasix remains on hold UA/cx/urology as above. per urology, no need for CTAP at this time Renal dose meds/avoid nephrotoxins as able BMP in AM (12) Constipated: Plan: 2nd to fall/pain medications/dehydration. +BS on exam but increased distention today/uncomfortable but was attempting to move bowels on exam/on bedpain given bowel regimen this am, KUB ordered w/ mod-large amout stool in colon/rectum. suppository x 1 by RN this afternoon and will continue to myra Plan continued inpatient stay, f/u OR cx/adjustment to antibiotics as needed PT/OT consulted, CM following and able to return to [facility] once medically stable Admission and Anticipated Discharge Date Admission Date: September 05, 2023 Supervising Physician Co-Signing Physician Notes The patient was not seen by me. The chart was reviewed. Case discussed with KHADIJAH Del Rio. Agree with assessment and plan Subjective Evaluated this morning, ongoing pain to leg/shoulder, asking RN to give dose oxycodone, dilaudid available if needed. Encouraged use of analgesics as needed for pain control as dose cause HR to elevate. On 2L NC since starting the IVF from 3L this morning, HR improving. Discussed continuing to hold his lasix for now. Was up most of the night for vitals/pain. Will encourage limited waking up to allow for sleep. No CP. Reports breathing about baseline/not worse. Discussed urine cx/urology consult but may reach out to ID pending finalized cx from urine/OR for further discussion given did appear concentrated/foul smelling day prior. Attempting to move his bowels at present time. Reports being so full not very hungry. Does have active BS, RN going to give suppository and will monitor. Questions/concerns addressed at this time Physical Exam Physical Exam: General: 73yo male laying in bed, attempting to use bedpan, NAD but mildly uncomfortable, pain to RIGHT shoulder reported, sling in place HEENT: head atraumatic, normocephalic, mm slightly dry but IMPROVED from day prior, trachea midline Resp: scattered crackles bilaterally, diminished in the bases but no significant wheezing, on 2L NC at present CV: irregularly irregular, rates 90-110s (up to 140s w/ activity) +systolic murmur, NO pitting edema GI: +BS, soft/NT, L nephrostomy bag w/ cloudy but less concentrated urine draining MSK/Neuro: RIGHT BKA s/o I&D, wrapped/splint in place, dressing NOT removed, no significant findings to LLE -RIGHT SHOULDER with decreased ROM/tende rness to joint reported, sling in place, pulse palpable/fingers mobile/sensation intact Psych: AOx3 Results & Data Results & Data Vital Signs (Past 12 Hours) Vital Signs Temp Pulse Pulse Pulse Resp BP Pulse Ox 09/08/23 07:25 09/08/23 07:04 108 H 09/08/23 02:57 36.6 C 113 H 18 134/89 94 09/08/23 01:34 112 H 160/69 H 95 09/07/23 23:58 37.1 C 108 H 20 148/77 H 91 09/07/23 20:45 O2 Del Method O2 Flow Rate 09/08/23 07:25 Nasal Cannula 3 09/08/23 07:04 09/08/23 02:57 Nasal Cannula 3 09/08/23 01:34 Nasal Cannula 3 09/07/23 23:58 Nasal Cannula 3 09/07/23 20:45 Nasal Cannula 3 Laboratory Results 09/08/23 09/07/23 09/07/23 Range/Units 02:00 20:19 17:07 WBC 9.45 (4.8-10.8) K/ul RBC 3.36 L (4.70-6.10) M/uL Hgb 11.2 L (14.0-18.0) g/dl Hct 35.0 L (42.0-52.0) % MCV 104.2 H (80.0-100.0) fL MCH 33.3 (25.0-34.0) pg MCHC 32.0 (32.0-36.0) g/dL RDW Std Deviation 63.6 H (36.4-46.3) fL RDW Coeff of Sharmaine 16.5 H (11.5-14.5) % Plt Count 239 (130-400) K/uL MPV 11.1 (9.4-12.4) fL Immature Gran % (Auto) 0.3 % Neut % (Auto) 65.7 % Lymph % (Auto) 25.7 % [place] % (Auto) 7.3 % Eos % (Auto) 0.7 % Baso % (Auto) 0.3 % Neut # (Auto) 6.20 (1.40-6.50) K/uL Lymph # (Auto) 2.43 (1.20-3.40) K/uL [place] # (Auto) 0.69 H (0.11-0.59) K/uL Eos # (Auto) 0.07 (0.00-0.50) K/uL Baso # (Auto) 0.03 (0.00-0.20) K/uL Immature Gran # (Auto) 0.03 (0.01-0.20) K/uL Sodium 142 (136-145) mmol/L Potassium 4.2 (3.5-5.1) mmol/L Chloride 106 (98-107) mmol/L Carbon Dioxide 29 (21-32) mmol/L Anion Gap 7 (3-11) BUN 33 H (6-23) mg/dl Creatinine 1.39 (0.6-1.4) mg/dl Est Cr Clr Drug Dosing 45.5 ml/min Est GFR ( Amer) 57.5 ml/min Est GFR (Non-Af Amer) 49.6 ml/min BUN/Creatinine Ratio 23.7 H (10-20) Glucose 105 H (70-99(Fasting)) mg/dl POC Glucose 122 H 111 H (70-99) mg/dl Calcium 8.6 (8.6-10.3) mg/dl Magnesium 2.1 (1.7-2.4) mg/dl Total Bilirubin 0.7 (0.2-1.0) mg/dl AST 22 (13-39) U/L ALT 6 L (7-52) U/L Alkaline Phosphatase 78 (34-104) U/L Total Protein 6.1 (6.0-8.3) gm/dl Albumin 3.5 (3.4-5.0) gm/dl Globulin 2.6 (2.5-4.0) gm/dl Albumin/Globulin Ratio 1.3 (0.9-2) Urine Color Urine Appearance (Clear) Urine pH (4.5-7.5) Ur Specific Breeding (1.000-1.030) Urine Protein (Negative) Urine Glucose (UA) (Negative) Urine Ketones (Negative) Urine Blood (Negative) Urine Nitrite (Negative) Urine Bilirubin (Negative) Urine Urobilinogen (Negative) Ur Leukocyte Esterase (Negative) Urine WBC (Auto) (0-5) /hpf Urine RBC (Auto) (0-2) /hpf U Hyaline Cast (Auto) (0-2) /lpf U Epithel Cells (Auto) (0-2) /hpf Urine Bacteria (Auto) (None Seen) 09/07/23 09/07/23 09/07/23 Range/Units 12:10 10:11 08:01 WBC (4.8-10.8) K/ul RBC (4.70-6.10) M/uL Hgb (14.0-18.0) g/dl Hct (42.0-52.0) % MCV (80.0-100.0) fL MCH (25.0-34.0) pg MCHC (32.0-36.0) g/dL RDW Std Deviation (36.4-46.3) fL RDW Coeff of Sharmaine (11.5-14.5) % Plt Count (130-400) K/uL MPV (9.4-12.4) fL Immature Gran % (Auto) % Neut % (Auto) % Lymph % (Auto) % [place] % (Auto) % Eos % (Auto) % Baso % (Auto) % Neut # (Auto) (1.40-6.50) K/uL Lymph # (Auto) (1.20-3.40) K/uL [place] # (Auto) (0.11-0.59) K/uL Eos # (Auto) (0.00-0.50) K/uL Baso # (Auto) (0.00-0.20) K/uL Immature Gran # (Auto) (0.01-0.20) K/uL Sodium (136-145) mmol/L Potassium (3.5-5.1) mmol/L Chloride (98-107) mmol/L Carbon Dioxide (21-32) mmol/L Anion Gap (3-11) BUN (6-23) mg/dl Creatinine (0.6-1.4) mg/dl Est Cr Clr Drug Dosing ml/min Est GFR ( Amer) ml/min Est GFR (Non-Af Amer) ml/min BUN/Creatinine Ratio (10-20) Glucose (70-99(Fasting)) mg/dl POC Glucose 107 H 97 (70-99) mg/dl Calcium (8.6-10.3) mg/dl Magnesium (1.7-2.4) mg/dl Total Bilirubin (0.2-1.0) mg/dl AST (13-39) U/L ALT (7-52) U/L Alkaline Phosphatase (34-104) U/L Total Protein (6.0-8.3) gm/dl Albumin (3.4-5.0) gm/dl Globulin (2.5-4.0) gm/dl Albumin/Globulin Ratio (0.9-2) Urine Color Yellow Urine Appearance Turbid A (Clear) Urine pH 8.0 H (4.5-7.5) Ur Specific Breeding 1.009 (1.000-1.030) Urine Protein 3+ H (Negative) Urine Glucose (UA) Negative (Negative) Urine Ketones Negative (Negative) Urine Blood 3+ H (Negative) Urine Nitrite Negative (Negative) Urine Bilirubin Negative (Negative) Urine Urobilinogen Negative (Negative) Ur Leukocyte Esterase 3+ H (Negative) Urine WBC (Auto) 21-50 H (0-5) /hpf Urine RBC (Auto) >20 H (0-2) /hpf U Hyaline Cast (Auto) 3-5 H (0-2) /lpf U Epithel Cells (Auto) 0-2 (0-2) /hpf Urine Bacteria (Auto) 4+ H (None Seen) Diagnostic Findings KUB X-Ray 09/08/23 12:39 KUB HISTORY: constipation, discomfort, eval stool burden/ileus COMPARISON: Abdomen and pelvis CTA 07/12/2023. FINDINGS: The bowel gas pattern is unremarkable. There are no dilated loops of small bowel to suggest an obstruction. No renal calculi. No ureteral calculi. No pneumoperitoneum or pneumatosis. Moderate to large amount of well-formed stool within the colon and rectum. A left-sided percutaneous nephrostomy tube is noted. A pacemaker wire is partially visualized. Mild interstitial thickening at the lung bases. IMPRESSION: 1. Nonobstructive bowel gas pattern. 2. Moderate to large amount of well-formed stool within the colon and rectum. ACT 112: Negative or not required by law. Electronically signed by: Jeramy Millard M.D. 09/08/2023 2:08 PM PG Care Time/CCT Total # of Minutes Spent Total Time Spent with Patient: Total time spent is greater than 50% in coordination of care (as documented) at patient's floor/unit and/or counseling patient: Coding Level of Care Code 07296 SUB INP/OBS CARE 3/50MIN Diagnoses Wound dehiscence T81.30XA Fall W19.XXXA Chronic HFrEF (heart failure with reduced ejection fraction) I50.22 Nephrostomy status Z93.6 Right shoulder pain M25.511 Chronicity: acute Atrial fibrillation I48.91 Chronic respiratory failure with hypoxia J96.11 CAD (coronary artery disease) I25.10 CLL (chronic lymphocytic leukemia) C91.10 Diabetes mellitus, type 2 E11.9 NYLA (acute kidney injury) N17.9 Constipated K59.00 (5) Right shoulder pain Chronicity: acute Qualified Code(s): M25.511 - Pain in right shoulder
--- NOTE | 2023-09-08 08:15 | Urology Consultation ---
Date of Consultation September 08, 2023 Assessment & Plan (1) Bladder carcinoma: (2) Hydronephrosis, left: Plan 73-year-old male with a history of nonmuscle invasive high-grade bladder cancer who is status post BCG treatment with poor tolerance. Tumor involve the left ureteral orifice and he had chronic left hydronephrosis and ultimately received a nephrostomy tube on 06/25/2023. Urology consulted for a positive UA. Patient has no urinary symptoms and left nephrostomy tube is draining clear yellow urine. Unclear why urinalysis was checked but it is not surprising that it was positive as he is colonized. In the absence of symptoms, I do not recommend any further antibiotic treatment from a urologic perspective even if the culture grows bacteria. His creatinine is stable. Rest of care per primary team Urology to sign off, patient already has follow-up in place History of Present Illness Attending Physician: Ziggy Faye MD History of Present Illness 73-year-old male with a history of nonmuscle invasive high-grade bladder cancer who is status post BCG treatment with poor tolerance. Tumor involve the left ureteral orifice and he had chronic left hydronephrosis and ultimately received a nephrostomy tube on 06/25/2023. More recently had a right BKA and is currently admitted for dehiscence of his wound. For unclear reasons medicine opted to check a urinalysis which was grossly positive which is to be expected as he is colonized. Urine culture is pending. He is currently on ampicillin and sulbactam. Creatinine today is 1. 39, down from 1.63. His baseline ranges anywhere from 1.2-1.8. Patient denies any issues urinating or any issues with his left nephrostomy tube. Allergies Allergy/AdvReac Type Severity Reaction Status Date / Time enalapril Allergy Severe Angioedema Verified 09/05/23 15:24 brimonidine [From Combigan] Allergy Intermediate Hives Verified 09/05/23 15:24 timolol Allergy Intermediate Hives Verified 09/05/23 15:24 Home Medications Medication Instructions Recorded Confirmed Type aspirin 81 mg tablet,delayed 81 mg PO QAM 11/01/22 07/17/23 History release atorvastatin 40 mg tablet 40 mg PO PM 11/01/22 07/17/23 History budesonide 160 mcg-glycopyr 9 2 inh inhalation BID 11/01/22 07/17/23 History mcg-formot 4.8 mcg/actuation HFA inhaler (Breztri Aerosphere) calcium carbonate 600 mg PO QAM 11/01/22 07/17/23 History carvedilol 3.125 mg tablet 3.125 mg PO BID 11/01/22 07/17/23 History cyanocobalamin (vitamin B-12) 1,000 mcg PO QAM 11/01/22 07/17/23 History 1,000 mcg tablet empagliflozin 10 mg tablet 10 mg PO QAM 11/01/22 07/17/23 History (Jardiance) ferrous sulfate 27 mg iron tablet 27 mg PO QAM 11/01/22 07/17/23 History furosemide 40 mg tablet (Lasix) 40 mg PO BID 11/01/22 07/17/23 History hydralazine 25 mg tablet 25 mg PO TID 11/01/22 07/17/23 History nitroglycerin 0.4 mg sublingual 0.4 mg sublingual UD PRN Chest Pain 11/01/22 07/17/23 History tablet potassium chloride 20 mEq 20 meq PO QAM 11/01/22 07/17/23 History tablet,extended release psyllium husk 3.4 gram/5.4 gram 1 tbsp PO QAM 11/01/22 07/17/23 History oral powder (Metamucil) dimenhydrinate 50 mg tablet 50 mg PO Q8H PRN Nausea 12/14/22 07/17/23 History (Dramamine) apixaban 5 mg tablet (Eliquis) 5 mg PO BID 05/03/23 07/17/23 History acetaminophen 500 mg tablet 1,000 mg PO Q6H PRN Pain 05/09/23 07/17/23 History multivitamin 1 tab PO QAM 07/09/23 07/17/23 History Patient History Medical History Wound dehiscence Fall Peripheral arterial disease Chronic respiratory failure with hypoxia ICD (implantable cardioverter-defibrillator) in place 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 [facility] [employer] specialist, Implant date 10/05/2021 Ischemic cardiomyopathy ICD 09/2021 CAD (coronary artery disease) CABG x 2 07/2016 Angioplasty 1996 CLL (chronic lymphocytic leukemia) known hx x years Diabetes mellitus, type 2 NIDDM SOB (shortness of breath) CKD (chronic kidney disease) History of cellulitis Right Great toe- completed antibiotics Swelling and erythema significantly improved but still has mild pain (improved from previous) CHF (congestive heart failure) followed by Dr. Ortega Dyslipidemia HTN (hypertension) History of gout Hard of hearing No hearing aids Myocardial Infarction 1996 & 2016 Chronic obstructive pulmonary disease 3L via continuous Surgical History S/P below knee amputation History of bladder surgery TURBT History of anesthesia reaction slow to wake History of bone marrow biopsy Right node Lymph node biopsy (04/23/23)- CLL/SLL, negative for metastatic carcinoma History of colonoscopy H/O wisdom tooth extraction History of tonsillectomy History of adenoidectomy History of cataract surgery bilateral S/P ICD (internal cardiac defibrillator) procedure Implanted 2021>last checked February 2022 ? type S/P ablation of atrial fibrillation S/P angioplasty no stents S/P CABG x 2 2016 Family History Other No family history of adverse response to anesthesia Social History Smoking Status: Former smoker Tobacco Type: Cigarettes Cigarettes Per Day: 1-2 PPD; Smoking End Date: 2015; Second Hand Exposure: No; Do You Dip or Chew Tobacco: No; Hx Alcohol Use: No Hx Substance Use: No Preferred Language: Turkmen Communication Ability: Effective Ring Barker Operator Required: No Beliefs That Will Affect Care: None Current Living Situation: Rehab Current Living Situation Comment: [facility] Other Information That Helps Us Care for You: No Feels Safe at Home: Yes Safety Concerns: Feels Safe At This Time Assistive Devices: Cane, Oxygen - Continuous, Walker and Wheelchair Assistive Devices Comment: wears 3L NC chronically Physical Exam Physical Exam: General: Alert and oriented, no acute distress HEENT: Normocephalic, mucous membranes moist Pulmonary: Nonlabored respirations Abdomen: Nondistended : Left neph tube draining aristeo urine Extremities: Right BKA with dressing in place Neuro: No gross deficits Skin: Warm, dry, no rashes noted Results & Data Vital Signs (Past 12 Hours) Vital Signs Temp Pulse Pulse Pulse Resp BP Pulse Ox 09/08/23 08:07 36.6 C 114 H 20 146/86 H 94 09/08/23 07:25 09/08/23 07:04 108 H 09/08/23 02:57 36.6 C 113 H 18 134/89 94 09/08/23 01:34 112 H 160/69 H 95 09/07/23 23:58 37.1 C 108 H 20 148/77 H 91 09/07/23 20:45 O2 Del Method O2 Flow Rate 09/08/23 08:07 Nasal Cannula 3 09/08/23 07:25 Nasal Cannula 3 09/08/23 07:04 09/08/23 02:57 Nasal Cannula 3 09/08/23 01:34 Nasal Cannula 3 09/07/23 23:58 Nasal Cannula 3 09/07/23 20:45 Nasal Cannula 3 PG Care Time/CCT Total # of Minutes Spent Total Time Spent with Patient: Total time spent is greater than 50% in coordination of care (as documented) at patient's floor/unit and/or counseling patient: Coding Level of Care Code 30397 INT INP/OBS CARE MIN Diagnoses Bladder carcinoma C67.9 Hydronephrosis, left N13.30
[2023-09-08] MEDS: METOPROLOL TARTRATE 1 MG/ML VIAL IV STA (09:05)
[2023-09-08] MEDS: SODIUM CHLORIDE 0.9% 1,000 ML IV SCH (09:06)
[2023-09-08] MEDS: MAGNESIUM HYDROXIDE SUSP 30 ML UDC PO PRN (11:30)
[2023-09-08] MEDS: bisacodyL 10 MG SUPP PR PRN (12:40)
--- NOTE | 2023-09-08 14:09 | XRay Report ---
KUB HISTORY: constipation, discomfort, eval stool burden/ileus COMPARISON: Abdomen and pelvis CTA 07/12/2023. FINDINGS: The bowel gas pattern is unremarkable. There are no dilated loops of small bowel to suggest an obstruction. No renal calculi. No ureteral calculi. No pneumoperitoneum or pneumatosis. Moderate to large amount of well-formed stool within the colon and rectum. A left-sided percutaneous nephrost carlita tube is noted. A pacemaker wire is partially visualized. Mild interstitial thickening at the lung bases. IMPRESSION: 1. Nonobstructive bowel gas pattern. 2. Moderate to large amount of well-formed stool within the colon and rectum. ACT 112: Negative or not required by law. Electronically signed by: Jeramy Millard M.D. 09/08/2023 2:08 PM
[2023-09-08] MEDS: METOPROLOL TARTRATE 1 MG/ML VIAL IV PRN (18:50)
[2023-09-09 06:26] LABS: Basophils # (auto) 0.05 K/uL (0.00-0.20); Basophils % (auto) 0.4 %; Eosinophils # (auto) 0.02 K/uL (0.00-0.50); Eosinophils % (auto) 0.2 %; Hematocrit (blood only) 35.3 % (42.0-52.0); Hemoglobin 11.1 g/dl (14.0-18.0); Immature Granulocytes # (auto) 0.07 K/uL (0.01-0.20); Immature Granulocytes % (auto) 0.5 %; Lymphocytes # (auto) 2.63 K/uL (1.20-3.40); Lymphocytes % (auto) 19.7 %; Mean Corpuscular Hemoglobin 33.2 pg (25.0-34.0); Mean Corpuscular Hgb Conc 31.4 g/dL (32.0-36.0); Mean Corpuscular Volume 105.7 fL (80.0-100.0); Mean Platelet Volume 11.3 fL (9.4-12.4); Neutrophils # (auto) 9.76 K/uL (1.40-6.50); Neutrophils % (auto) 73.2 %; Platelet Count 272 K/uL (130-400); RDW Coefficient of Variation 16.8 % (11.5-14.5); RDW Standard Deviation 65.1 fL (36.4-46.3); Red Blood Count 3.34 M/uL (4.70-6.10); White Blood Count 13.33 K/ul (4.8-10.8)
[2023-09-09 07:10] LABS: BUN Creatinine Ratio 21.1 (10-20); Calcium 8.5 mg/dl (8.6-10.3); Creatinine Clr Calc Pharmacy 47.9 ml/min; Est GFR (African American) 60.6 ml/min; Est GFR (Non-African American) 52.3 ml/min; Magnesium 2.3 mg/dl (1.7-2.4); Potassium 4.3 mmol/L (3.5-5.1)
--- NOTE | 2023-09-09 08:41 | Hospitalist Progress Note ---
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 Dr Jordan consulted as Dr Worrell out of town s/p irrigation debridement and Closure of Right Below Knee Amputation Dehiscence.(Right) - Monico Jordan MD on 09/04 Hemovac placed, removed 09/06 by orthopedics OR Cx probable cirilo gram positive cocci, yeast not leonel albicans/dub on preliminary Blood cxs NGTD IVF provided for dehydration prior Lasix resumed today for volume overload and Cr improved and will monitor +BM w/ bowel regimen, multiple formed stools but diarrhea/foul smell this morning and sent for cdiff which was negative WBC elevated today but no fever and bcx remain negative. No hx MRSA but has had repeat hospitalizations/at rehab and will monitor for now per discussion w/ supervising provider and not escalate Unasyn at this time. Fluconazole was added for yeast on OR cx and will need to monitor final/adj as needed ID consulted as well Of note, did get UA/cx from nephrostomy prior which is growing probable enterococcus/probable pseudomonas species which would NOT be covered by current abx and was obtained given appearance/foul smell of urine however Urology consulted and recs against tx even if growth given likely colonized and will await ID consult/input IF any fevers, may need to escalate sooner but not septic appearing at this time Pain control, antiemetics as needed. PT/OT consulted and able to return back to [facility] once medically stable Labs/exam in AM (2) Fall: Plan: Mechnical while transferring and wheelchair tipped over. No LOC/head trauma CT shoulder noted possible nondisplaced fx vs chronic fragment. Chronic noted by ortho and can consider injection for chronic rotator cuff issues but not in setting of current infection. Sling/pain control/therapy evals Nephrostomy draining, no issues per urology/need for CTAP but will monitor. Cdiff negative as checked on abx and diarrhea today Rehab to be resumed at [facility], following (3) Chronic HFrEF (heart failure with reduced ejection fraction): Plan: DRY on prior exams, not given IVF on admission due to LVEF 25% 1L IVF provided 2 days, improvement in renal function however slightly volume overloaded and given 20mg IV lasix x1 AM 6/2 and resumed usual lasix 40mg PO BID Continues on carvedilol, however increased 6.25mg BID given ongoing aflutter w/ HR maintaining 90-100/110s and up to 140s w/ activity and palpitations. 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 ID consulted as above to weigh in (5) Right shoulder pain: Plan: As above, continue pain control/sling, possible injection by ortho once over current infection (6) Atrial fibrillation: Plan: ELEVATED HR/flutter in setting of infection abx/tx as outlined, lopressor available and was given again today and going to increase his carvedilol as outlined above which can also help w/ his CHF and BPs tolerating Monitor on telemetry given several beat run vtach day prior without reports of chest pain however has remained without significant issue other than continued elevated rates (7) Chronic respiratory failure with hypoxia: Plan: pulm toilet ordered was down to 2L prior, back on 3L with some overload today and lasix resumed and will continue to monitor. No change in sputum reported but will need to monitor (8) CAD (coronary artery disease): Plan: Continues on aspirin, statin. Carvedilol increased as above No CP reported. continue tele as above (9) CLL (chronic lymphocytic leukemia): Plan: CBC is stable today 11.2 in setting of surgery/IVF and will monitor Continue to follow up with heme/onc on discharge (10) Diabetes mellitus, type 2: Plan: Jardiance initially held --> resumed given for CHF and holding his home lasix (EF ~25%) Basal/bolus while inpatient with acceptable BSGs and will monitor, pharmacy consulted (11) NYLA (acute kidney injury): Plan: Cr 1.3 on admission, IVF deferred given LVEF 25% and lasix had been continued 40mg PO BID Cr bumped to 1.44 on repeat labs, dehydrated on exam and lasix placed on HOLD AM 09/05 and had been taking PO and deferred on IVF however Cr bumped to 1.63 and dehydrated/tachy and added 1L NSS on 09/06 IVF x 1L on 09/07 ordered, lasix was on hold and BUN/Cr stable and improved and lasix resumed as above Renal dose meds/avoid nephrotoxins as above and continue to monitor BMP (12) Constipated: Plan: bowel regimen/suppository ordered and provided 09/07, KUB w/o obstruction Multiple formed BMs overnight and this AM however then had loose/liquid stool and sent for cdiff given abx use which was negative continues on colace/senna, metamucil as takes at home to prevent issues continue to monitor Plan continued inpatient stay, monitor final cxs/ID consulted for AM to weigh in given urine/WBC elevation however has been afebrile/blood cultures NGTD Popeye Lin once medically stable planned and CM following Admission and Anticipated Discharge Date Admission Date: September 05, 2023 Supervising Physician Co-Signing Physician Notes The patient was not seen by me. The chart was reviewed. case discussed with KHADIJAH Del Rio. Agree with assessment and plan. Subjective Evaluated this morning, resting in bed. Had 2 formed large BM last evening, additional formed stool this morning but then having some loose/liquid diarrhea. GIven WBC elevation/abx use, cdiff sample ordered and being sent and discussed will add PO vancomycin if occurs. Thinks breathing a little more labored today, resuming his lasix and will monitor. Continues on current abx but discussed ID consultation to weigh in tomorrow as urine w/ pseudomonas which would NOT be covered by current abx but urology believing colonized. Diflucan added for yeast/leonel on OR cx as well in meantime. Having ongoing shoulder discomfort at times, orthopedics eval'd prior and plans for possible injection once over current infection. Case discussed w/ Dr Jordan this morning given concerns for possible MRSA but awaiting final cx prior to switching abx given now having diarrhea as well/awaiting cdiff testing. No fever/chills. Improvement in appetite. No nausea/vomiting. Questions/concerns addressed at this time. Physical Exam Physical Exam: General: 73yo male sitting in bed, NAD HEENT: head atraumatic, normocephalic, mmm, trachea midline Resp: DIMINISHED in the bases today, no w/c/r, on 3L, increased SOB CV: irregularly irregular, rates 90-100 at present, +systolic murmur, trace pedal edema GI: +BS, soft, less distension, +diarrhea/cdiff smell Nephrotomy w/ clearer yellow urine draining MSK/Neuro: RIGHT BKA s/o I&D, wrapped/splint in place, dressing NOT removed no significant findings to LLE -RIGHT SHOULDER in sling, fingers mobile /sensation intact. +tenderness Psych: AOx3 Results & Data Results & Data Vital Signs (Past 12 Hours) Vital Signs Temp Pulse Pulse Pulse Pulse Resp BP 09/09/23 08:28 36.4 C L 112 H 16 154/96 H 09/09/23 07:36 09/09/23 07:22 115 H 09/09/23 05:11 107 H 20 09/09/23 04:59 36.6 C 123 H 22 141/77 H 09/08/23 23:19 103 H 09/08/23 22:42 36.6 C 109 H 16 109/64 09/08/23 20:45 Pulse Ox O2 Del Method O2 Flow Rate 09/09/23 08:28 95 Nasal Cannula 3 09/09/23 07:36 Nasal Cannula 3 09/09/23 07:22 09/09/23 05:11 09/09/23 04:59 92 Nasal Cannula 3 09/08/23 23:19 09/08/23 22:42 93 Nasal Cannula 3 09/08/23 20:45 Nasal Cannula 3 Laboratory Results 09/09/23 09/09/23 09/08/23 Range/Units 08:15 05:33 20:35 WBC 13.33 H (4.8-10.8) K/ul RBC 3.34 L (4.70-6.10) M/uL Hgb 11.1 L (14.0-18.0) g/dl Hct 35.3 L (42.0-52.0) % MCV 105.7 H (80.0-100.0) fL MCH 33.2 (25.0-34.0) pg MCHC 31.4 L (32.0-36.0) g/dL RDW Std Deviation 65.1 H (36.4-46.3) fL RDW Coeff of Sharmaine 16.8 H (11.5-14.5) % Plt Count 272 (130-400) K/uL MPV 11.3 (9.4-12.4) fL Immature Gran % (Auto) 0.5 % Neut % (Auto) 73.2 % Lymph % (Auto) 19.7 % [place] % (Auto) 6.0 % Eos % (Auto) 0.2 % Baso % (Auto) 0.4 % Neut # (Auto) 9.76 H (1.40-6.50) K/uL Lymph # (Auto) 2.63 (1.20-3.40) K/uL [place] # (Auto) 0.80 H (0.11-0.59) K/uL Eos # (Auto) 0.02 (0.00-0.50) K/uL Baso # (Auto) 0.05 (0.00-0.20) K/uL Immature Gran # (Auto) 0.07 (0.01-0.20) K/uL Sodium 143 (136-145) mmol/L Potassium 4.3 (3.5-5.1) mmol/L Chloride 107 (98-107) mmol/L Carbon Dioxide 29 (21-32) mmol/L Anion Gap 7 (3-11) BUN 28 H (6-23) mg/dl Creatinine 1.33 (0.6-1.4) mg/dl Est Cr Clr Drug Dosing 47.9 ml/min Est GFR ( Amer) 60.6 ml/min Est GFR (Non-Af Amer) 52.3 ml/min BUN/Creatinine Ratio 21.1 H (10-20) Glucose 126 H (70-99(Fasting)) mg/dl POC Glucose 115 H 125 H (70-99) mg/dl Calcium 8.5 L (8.6-10.3) mg/dl Magnesium 2.3 (1.7-2.4) mg/dl 09/08/23 09/08/23 09/08/23 Range/Units 17:04 16:18 12:07 WBC (4.8-10.8) K/ul RBC (4.70-6.10) M/uL Hgb (14.0-18.0) g/dl Hct (42.0-52.0) % MCV (80.0-100.0) fL MCH (25.0-34.0) pg MCHC (32.0-36.0) g/dL RDW Std Deviation (36.4-46.3) fL RDW Coeff of Sharmaine (11.5-14.5) % Plt Count (130-400) K/uL MPV (9.4-12.4) fL Immature Gran % (Auto) % Neut % (Auto) % Lymph % (Auto) % [place] % (Auto) % Eos % (Auto) % Baso % (Auto) % Neut # (Auto) (1.40-6.50) K/uL Lymph # (Auto) (1.20-3.40) K/uL [place] # (Auto) (0.11-0.59) K/uL Eos # (Auto) (0.00-0.50) K/uL Baso # (Auto) (0.00-0.20) K/uL Immature Gran # (Auto) (0.01-0.20) K/uL Sodium (136-145) mmol/L Potassium (3.5-5.1) mmol/L Chloride (98-107) mmol/L Carbon Dioxide (21-32) mmol/L Anion Gap (3-11) BUN (6-23) mg/dl Creatinine (0.6-1.4) mg/dl Est Cr Clr Drug Dosing ml/min Est GFR ( Amer) ml/min Est GFR (Non-Af Amer) ml/min BUN/Creatinine Ratio (10-20) Glucose (70-99(Fasting)) mg/dl POC Glucose 116 H 98 148 H (70-99) mg/dl Calcium (8.6-10.3) mg/dl Magnesium (1.7-2.4) mg/dl Diagnostic Findings KUB X-Ray 09/08/23 12:39 KUB HISTORY: constipation, discomfort, eval stool burden/ileus COMPARISON: Abdomen and pelvis CTA 07/12/2023. FINDINGS: The bowel gas pattern is unremarkable. There are no dilated loops of small bowel to suggest an obstruction. No renal calculi. No ureteral calculi. No pneumoperitoneum or pneumatosis. Moderate to large amount of well-formed stool within the colon and rectum. A left-sided percutaneous nephrostomy tube is noted. A pacemaker wire is partially visualized. Mild interstitial thickening at the lung bases. IMPRESSION: 1. Nonobstructive bowel gas pattern. 2. Moderate to large amount of well-formed stool within the colon and rectum. ACT 112: Negative or not required by law. Electronically signed by: Jeramy Millard M.D. 09/08/2023 2:08 PM PG Care Time/CCT Total # of Minutes Spent Total Time Spent with Patient: Total time spent is greater than 50% in coordination of care (as documented) at patient's floor/unit and/or counseling patient: Coding Level of Care Code 82418 SUB INP/OBS CARE 3/50MIN Diagnoses Wound dehiscence T81.30XA Fall W19.XXXA Chronic HFrEF (heart failure with reduced ejection fraction) I50.22 Nephrostomy status Z93.6 Right shoulder pain M25.511 Chronicity: acute Atrial fibrillation I48.91 Chronic respiratory failure with hypoxia J96.11 CAD (coronary artery disease) I25.10 CLL (chronic lymphocytic leukemia) C91.10 Diabetes mellitus, type 2 E11.9 NYLA (acute kidney injury) N17.9 Constipated K59.00 (5) Right shoulder pain Chronicity: acute Qualified Code(s): M25.511 - Pain in right shoulder
[2023-09-09] MEDS: FLUCONAZOLE 100 MG TAB PO SCH (10:32)
[2023-09-09] MEDS: FUROSEMIDE INJ 20 MG/2 ML VIAL IV ONE (10:47)
--- NOTE | 2023-09-09 12:35 | Orthopedic Progress Note ---
Date of Service September 09, 2023 Assessment & Plan (1) Dehiscence of wound: Plan: Likely has an acute aggravation of a chronic right shoulder rotator cuff problem. The ossicle seen on CT scan is either a bone spur or a preos acromiale. There is no evidence of acute fracture. I would hold on a cortisone shot for the time being. He can do heat ice medication and PT. We can follow as an outpatient and give cortisone injection if needed. In regards to his right BKA stump things are healing well. Cultures have grown out multiple organisms including bacteria and a Leslie. He is on not antibiotics and an ID consult is pending. Clinically it looks well. His white count did bump up but he has not had any fevers. I do not see anything convincing for worsening infection in the right BKA stump. Dr. Worrell I think will be back tomorrow and we will let him be aware of what the situation is. (2) Right shoulder pain: Plan: Continue use of sling to offload pressure on the right upper extremity. Ice with easy wrap PT/OT Pain control with p.o. medication. May consider corticosteroid injection Admission and Anticipated Discharge Date Admission Date: September 05, 2023 Subjective Reports poor appetite. Feels tired and thirsty. Right shoulder pain with difficulty moving. The right leg feels fine. Physical Exam Physical Exam: The right shoulder is not bruised or swollen. He does not have any significant active forward elevation. Drop arm test is positive. I can passively elevate him to 90 degrees. Axillary musculocutaneous median radial and ulnar motor and sensory is appear to be intact with a 1+ radial pulse. 5- out of 5 elbow flexion and extension and internal strength and 4 out of 5 on external rotation with pain. The right stump dressing is changed. Minimal swelling. Some scant bloody drainage on the dressing but no active drainage. Skin margins well-approximated and appear to be viable. There is no significant redness and no skin breakdown. A new well-padded dressing is applied with posterior splint. Results & Data Vital Signs (Past 12 Hours) Vital Signs Temp Pulse Pulse Pulse Pulse Resp BP 09/09/23 12:23 36.4 C L 116 H 16 145/83 H 09/09/23 09:41 102 H 09/09/23 09:06 130 H 09/09/23 08:28 36.4 C L 112 H 16 154/96 H 09/09/23 07:36 09/09/23 07:22 115 H 09/09/23 05:11 107 H 20 09/09/23 04:59 36.6 C 123 H 22 141/77 H Pulse Ox O2 Del Method O2 Flow Rate 09/09/23 12:23 95 Nasal Cannula 3 09/09/23 09:41 09/09/23 09:06 09/09/23 08:28 95 Nasal Cannula 3 09/09/23 07:36 Nasal Cannula 3 09/09/23 07:22 09/09/23 05:11 09/09/23 04:59 92 Nasal Cannula 3 Laboratory Results 09/09/23 09/09/23 09/09/23 Range/Units 12:15 10:23 08:15 WBC (4.8-10.8) K/ul RBC (4.70-6.10) M/uL Hgb (14.0-18.0) g/dl Hct (42.0-52.0) % MCV (80.0-100.0) fL MCH (25.0-34.0) pg MCHC (32.0-36.0) g/dL RDW Std Deviation (36.4-46.3) fL RDW Coeff of Sharmaine (11.5-14.5) % Plt Count (130-400) K/uL MPV (9.4-12.4) fL Immature Gran % (Auto) % Neut % (Auto) % Lymph % (Auto) % [place] % (Auto) % Eos % (Auto) % Baso % (Auto) % Neut # (Auto) (1.40-6.50) K/uL Lymph # (Auto) (1.20-3.40) K/uL [place] # (Auto) (0.11-0.59) K/uL Eos # (Auto) (0.00-0.50) K/uL Baso # (Auto) (0.00-0.20) K/uL Immature Gran # (Auto) (0.01-0.20) K/uL Sodium (136-145) mmol/L Potassium (3.5-5.1) mmol/L Chloride (98-107) mmol/L Carbon Dioxide (21-32) mmol/L Anion Gap (3-11) BUN (6-23) mg/dl Creatinine (0.6-1.4) mg/dl Est Cr Clr Drug Dosing ml/min Est GFR ( Amer) ml/min Est GFR (Non-Af Amer) ml/min BUN/Creatinine Ratio (10-20) Glucose (70-99(Fasting)) mg/dl POC Glucose 119 H 115 H (70-99) mg/dl Calcium (8.6-10.3) mg/dl Magnesium (1.7-2.4) mg/dl Stl C. diff Tox B Gene Negative Cdiff Gene (Neg) 09/09/23 09/08/23 09/08/23 Range/Units 05:33 20:35 17:04 WBC 13.33 H (4.8-10.8) K/ul RBC 3.34 L (4.70-6.10) M/uL Hgb 11.1 L (14.0-18.0) g/dl Hct 35.3 L (42.0-52.0) % MCV 105.7 H (80.0-100.0) fL MCH 33.2 (25.0-34.0) pg MCHC 31.4 L (32.0-36.0) g/dL RDW Std Deviation 65.1 H (36.4-46.3) fL RDW Coeff of Sharmaine 16.8 H (11.5-14.5) % Plt Count 272 (130-400) K/uL MPV 11.3 (9.4-12.4) fL Immature Gran % (Auto) 0.5 % Neut % (Auto) 73.2 % Lymph % (Auto) 19.7 % [place] % (Auto) 6.0 % Eos % (Auto) 0.2 % Baso % (Auto) 0.4 % Neut # (Auto) 9.76 H (1.40-6.50) K/uL Lymph # (Auto) 2.63 (1.20-3.40) K/uL [place] # (Auto) 0.80 H (0.11-0.59) K/uL Eos # (Auto) 0.02 (0.00-0.50) K/uL Baso # (Auto) 0.05 (0.00-0.20) K/uL Immature Gran # (Auto) 0.07 (0.01-0.20) K/uL Sodium 143 (136-145) mmol/L Potassium 4.3 (3.5-5.1) mmol/L Chloride 107 (98-107) mmol/L Carbon Dioxide 29 (21-32) mmol/L Anion Gap 7 (3-11) BUN 28 H (6-23) mg/dl Creatinine 1.33 (0.6-1.4) mg/dl Est Cr Clr Drug Dosing 47.9 ml/min Est GFR ( Amer) 60.6 ml/min Est GFR (Non-Af Amer) 52.3 ml/min BUN/Creatinine Ratio 21.1 H (10-20) Glucose 126 H (70-99(Fasting)) mg/dl POC Glucose 125 H 116 H (70-99) mg/dl Calcium 8.5 L (8.6-10.3) mg/dl Magnesium 2.3 (1.7-2.4) mg/dl Stl C. diff Tox B Gene (Neg) 09/08/23 Range/Units 16:18 WBC (4.8-10.8) K/ul RBC (4.70-6.10) M/uL Hgb (14.0-18.0) g/dl Hct (42.0-52.0) % MCV (80.0-100.0) fL MCH (25.0-34.0) pg MCHC (32.0-36.0) g/dL RDW Std Deviation (36.4-46.3) fL RDW Coeff of Sharmaine (11.5-14.5) % Plt Count (130-400) K/uL MPV (9.4-12.4) fL Immature Gran % (Auto) % Neut % (Auto) % Lymph % (Auto) % [place] % (Auto) % Eos % (Auto) % Baso % (Auto) % Neut # (Auto) (1.40-6.50) K/uL Lymph # (Auto) (1.20-3.40) K/uL [place] # (Auto) (0.11-0.59) K/uL Eos # (Auto) (0.00-0.50) K/uL Baso # (Auto) (0.00-0.20) K/uL Immature Gran # (Auto) (0.01-0.20) K/uL Sodium (136-145) mmol/L Potassium (3.5-5.1) mmol/L Chloride (98-107) mmol/L Carbon Dioxide (21-32) mmol/L Anion Gap (3-11) BUN (6-23) mg/dl Creatinine (0.6-1.4) mg/dl Est Cr Clr Drug Dosing ml/min Est GFR ( Amer) ml/min Est GFR (Non-Af Amer) ml/min BUN/Creatinine Ratio (10-20) Glucose (70-99(Fasting)) mg/dl POC Glucose 98 (70-99) mg/dl Calcium (8.6-10.3) mg/dl Magnesium (1.7-2.4) mg/dl Stl C. diff Tox B Gene (Neg) (2) Right shoulder pain Chronicity: acute Qualified Code(s): M25.511 - Pain in right shoulder
--- NOTE | 2023-09-09 13:46 | Pharmacy Report ---
Pharmacy Glycemic Short Note 2 - Date of Service September 09, 2023 - Glycemic Short BSG Results (Last 24 hours): 09/08/23 09/08/23 09/08/23 16:18 17:04 20:35 Glucose POC Glucose 98 116 H 125 H 09/09/23 09/09/23 09/09/23 05:33 08:15 12:15 Glucose 126 H POC Glucose 115 H 119 H OUTPATIENT ANTIDIABETIC REGIMEN: * Jardiance 10mg PO Daily * A1c 6.8% 07/18/23 ASSESSMENT: 09/08: * Michael BSGs have been stable over the last 48 hours, ranging 97-148 mg/dL. * Remains on Jardiance 10 mg daily inpatient. Still on Unasyn as well. * Required only 6 units of correctional yesterday. No changes today. 09/06: * BSGs have been stable [phone] mg/dL yesterday, Jardiance was held in AM but has been resumed * Continue current novolog parameters, hold basal * Plan for rehab or shelter facility 09/04: * 73 yo M, PMH right foot infections S/P right BKA on 07/26/[address] Worrell, AFib, DMII, CHF, right BKA site dehiscence and right shoulder pain after sustaining mechanical fall. * s/p I&D R BKA, glycemic consult, managed on Jardiance alone at home, euglycemic, no steroids. Heart healthy diet ordered for dinner tonight. * Continue Jardiance in patient with Heart Failure, and use NovoLog CF/CR only at this time. Will add basal if needed. PLAN FOR INPATIENT GLYCEMIC CONTROL: * Jardiance 10mg PO daily * Basal insulin * None at this time * Bolus insulin * NovoLog per scale ACHS or Q6hrs while NPO * Goal Range: Low 110 mg/dL - High 140 mg/dL * Correction Factor: 40 mg/dL/unit * Nutritional / Prandial insulin per carb ratio of 1 unit per 15 grams CHO consumed
[2023-09-09] MEDS: carvediloL 6.25 MG TAB PO SCH (17:46)
[2023-09-09] MEDS: FUROSEMIDE 40 MG TAB PO SCH (17:46)
[2023-09-10] MEDS: IPRATROPIUM BROMIDE NEB SOLN 0.02% 0.5MG/2.5ML VIAL NEB PRN (06:07)
[2023-09-10 06:29] LABS: Basophils # (auto) 0.05 K/uL (0.00-0.20); Basophils % (auto) 0.4 %; Eosinophils # (auto) 0.04 K/uL (0.00-0.50); Eosinophils % (auto) 0.3 %; Hematocrit (blood only) 36.3 % (42.0-52.0); Hemoglobin 11.5 g/dl (14.0-18.0); Immature Granulocytes % (auto) 0.8 %; Lymphocytes # (auto) 3.46 K/uL (1.20-3.40); Mean Corpuscular Hemoglobin 33.4 pg (25.0-34.0); Mean Corpuscular Hgb Conc 31.7 g/dL (32.0-36.0); Mean Corpuscular Volume 105.5 fL (80.0-100.0); Mean Platelet Volume 11.1 fL (9.4-12.4); Monocytes # (auto) 0.72 K/uL (0.11-0.59); Monocytes % (auto) 5.4 %; Neutrophils # (auto) 8.95 K/uL (1.40-6.50); Neutrophils % (auto) 67.1 %; Platelet Count 314 K/uL (130-400); RDW Coefficient of Variation 16.8 % (11.5-14.5); RDW Standard Deviation 65.1 fL (36.4-46.3); Red Blood Count 3.44 M/uL (4.70-6.10); White Blood Count 13.32 K/ul (4.8-10.8)
[2023-09-10 06:47] LABS: Albumin Globulin Ratio 1.3 (0.9-2); Albumin Level 3.5 gm/dl (3.4-5.0); BUN Creatinine Ratio 23.9 (10-20); Calcium 8.7 mg/dl (8.6-10.3); Creatinine Clr Calc Pharmacy 44.5 ml/min; Est GFR (Non-African American) 48.3 ml/min; Globulin 2.7 gm/dl (2.5-4.0); Magnesium 2.2 mg/dl (1.7-2.4); Potassium 4.1 mmol/L (3.5-5.1); Total Protein 6.2 gm/dl (6.0-8.3)
--- NOTE | 2023-09-10 07:48 | XRay Report ---
XR chest 1V portable HISTORY: Shortness of breath. Congestive heart failure. Follow-up. COMPARISON: Chest 09/06/2023. FINDINGS: No pneumothorax. Trace bilateral pleural effusions. The heart remains enlarged. There are p oststernotomy changes and left-sided pacemaker/defibrillator. A few small bibasilar linear densities favor subsegmental atelectasis. There is progressive interstitial/vascular thickening consistent with mild pulmonary edema. IMPRESSION: Cardiomegaly with interval progression of the mild interstitial pulmonary edema. ACT 112: Negative or not required by law. Electronically signed by: Jeramy Millard M.D. 09/10/2023 7:46 AM
--- NOTE | 2023-09-10 08:07 | Hospitalist Progress Note ---
Date of Service September 10, 2023 Assessment & Plan (1) Wound dehiscence: Plan: s/p right BKA with Dr. Worrell on 07/26/23 for recurrent right diabetic foot infections, had been on 10 day course Levaquin for possible infection at surgical site prior to admission and doing well at rehab but sustained fall AM 09/04 while transferring from bed to wheelchair and sustained dehiscence of RIGHT BKA wound. Dr Jordan consulted as Dr Worrell out of town s/p irrigation debridement and Closure of Right Below Knee Amputation Dehiscence.(Right) - Monico Jordan MD on 09/04. Hemovac placed w/ surgery and removed 09/06 OR cx prob anaerobic GPC, skin ally, yeast. Urine cx enterococcus, coryne, prob pseudomonas BCx remain NGTD WBC elevated but afebrile. Does have elevated lymphocytes/hx CLL. ID consulted to weigh in --> Recs to continue the unasyn, last date can be 09/10. Continue fluconazole. As patient denied urinary sx/eval by urology, ID rec not to treat at present time but if patient develops sx back/abdominal pain or sepsis, would pursue further tx for urinary source (as well as catheter exchange given colonization) Pain control, antiemetics as needed Lasix resumed, coreg increased as below and pending repeat eval/labs in AM, potential back to [facility] for ongoing rehab (2) Fall: Plan: Mechnical while transferring and wheelchair tipped over. No LOC/head trauma CT shoulder noted possible nondisplaced fx vs chronic fragment. Chronic noted by ortho and can consider injection for chronic rotator cuff issues but not in setting of current infection. Sling/pain control/therapy evals Nephrostomy draining, no issues per urology/need for CTAP but will monitor. Cdiff negative as checked on abx and diarrhea today Rehab to be [facility] at [facility] following (3) Chronic HFrEF (heart failure with reduced ejection fraction): Plan: Previously appeared dry and lasix placed on hold, IVF was not ordered on admission but was provided x 2 L Resumed lasix 20mg IV x 1 in AM 09/08, usual 40mg PO BID in the evening CXR w/ progression in edema and will monitor possible need for additional diuretics however suspect continued elevated HR in setting of low EF contributing and increased coreg to 6.25mg BID and appears BP/HR stable this afternoon. Prior outpt cards noted 12.5mg BID however confirmed w/ patient and fill hx was only ever on 3.125mg BID and given BPs on higher side and able to tolerate this was adjusted ?need for repeat echo, will hold off for now Did place consult for cardiology as well given ongoing afib/flutter/HF w/ reduced EF while inpatient Consideration for further increased to coreg as tolerated pending BP/HR given underlying EF. Continue lasix as above and monitor for need for additional IV dosing. 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 Renal function stable compared to priors/last admission and output acceptable w/ resumption of diuretics Urine cx as above however avoiding tx w/ additional abx given no urinary sx/blood cx negative and without fever but WILL NEED TO CONTINUE TO MONITOR - see ID consult (5) Right shoulder pain: Plan: As above, continue pain control/sling, improved today but ongoing issue/chronic rotator cuff issues per Dr Jordan possible injection by ortho once over current infection (6) Atrial fibrillation: Plan: ELEVATED HR/flutter in setting of infection however suspect needing better control as outlined Did have 18 beat run vtach today, asymptotic Coreg increased to 6.25mg PO BID, consider further increase pending tolerance however suspect should continue to increase as tolerated even at rehab for better control but cards consulted/to see this evening and can weigh in Mag/K replete Continued telemetry monitoring (7) Chronic respiratory failure with hypoxia: Plan: pulm toilet ordered On 4L NC this morning, lasix resumed/continued and coreg increased for afib/flutter as above Titrate O2 to baseline 3L as able No increased sputum/change but to monitor. On Unasyn for above Monitor CXR on repeat (8) CAD (coronary artery disease): Plan: Continues on aspirin, statin. Carvedilol increased as above No CP reported. continue tele as above (9) CLL (chronic lymphocytic leukemia): Plan: CBC is stable today 11.5 Continue to follow up with heme/onc on discharge (10) Diabetes mellitus, type 2: Plan: Jardiance initially held vbut resumed given for CHF and holding his home lasix (EF ~25%) Basal/bolus while inpatient with acceptable BSGs and will monitor, pharmacy consulted (11) NYLA (acute kidney injury): Plan: Cr remaining stable w/ continued good urine output and lasix continued as above renal dose meds/avoid nephrotoxins bmp in AM n 09/07 ordered, lasix was on hold and BUN/Cr stable and improved and lasix resumed as above Renal dose meds/avoid nephrotoxins as above and continue to monitor BMP (12) Constipated: Plan: resolved, cdiff negative - checked as liquid stool following constipation on abx continue bowel regimen as needed to prevent constipation while on pain meds for above Plan continued inpatient stay, per ID Unasyn can be completed after tomorrow (can dc on Augmentin PO). Monitor for any back/abdominal pain or urinary sx and would need to tx urine/have urology change nephrostomy given colonization plan to return to [facility] for ongoing rehab in next 24-48 hours if improvement in status on repeat exam Admission and Anticipated Discharge Date Admission Date: September 05, 2023 Subjective Evaluated this morning, had a little more shortness of breath last night, improved with breathing treatment. Moved his bowels. HR elevated - discussed home dosing based on outpt cardiology note coreg 12.5mg BID however patient reports he has been on 3.125mg BID without changes recently. Discussed given BP 140-150/70s and HR elevation with underlying cardiomyopathy/low EF/afib/flutter and increased to 6.25mg BID and consult for cardiology No sputum production w/ his SOB at this time but to monitor. Nephrostomy tube draining. Discussed urine cx and WBC elevation concerning for ongoing infection and given his CLL, ID consult placed and to be seen today. Lasix previosuly resumed, may need additional dosing but will monitor for now/appreciate consult by cardiology No nausea/vomiting, no abdominal pain reported. Does have ongoing fatigue/weakn ess due to infection and again discussed worry about needing to broaden abx coverage but appreciate ID consultation and likely adjustment to his abx regimen today. Cdiff negative. Questions/concerns addressed at this time. Physical Exam Physical Exam: General: 73yo male sitting in bed, NAD HEENT: head atraumatic, normocephalic, mmm, trachea midline Resp: DIMINISHED in the bases , no w/c/r, on 3-4L, increased SOB CV: irregularly irregular, rates 100-110s at present, +systolic murmur, trace pedal edema GI: +BS, soft, less distension, +diarrhea/cdiff smell Nephrotomy w/ clearer yellow urine draining MSK/Neuro: RIGHT BKA s/o I&D, wrapped/splint in place, dressing NOT removed no significant findings to LLE -RIGHT SHOULDER in sling, fingers mobile /sensation intact. +tenderness Psych: AOx3 Results & Data Results & Data Vital Signs (Past 12 Hours) Vital Signs Temp Pulse Pulse Resp BP BP BP 09/10/23 07:40 36.4 C L 110 H 20 134/78 09/10/23 06:22 96 H 130/74 09/10/23 06:07 101 H 18 09/10/23 05:51 118 H 20 105/82 09/10/23 03:01 36.4 C L 118 H 20 125/80 09/09/23 23:58 36.5 C 106 H 20 146/89 H 09/09/23 20:14 36.3 C L 86 20 120/78 Pulse Ox O2 Del Method O2 Flow Rate 09/10/23 07:40 98 Nasal Cannula 4 09/10/23 06:22 09/10/23 06:07 96 Nasal Cannula 5 09/10/23 05:51 09/10/23 03:01 94 Nasal Cannula 4 09/09/23 23:58 94 Nasal Cannula 4 09/09/23 20:14 97 Nasal Cannula 4 Laboratory Results 09/10/23 09/09/23 09/09/23 Range/Units 06:10 20:43 16:56 WBC 13.32 H (4.8-10.8) K/ul RBC 3.44 L (4.70-6.10) M/uL Hgb 11.5 L (14.0-18.0) g/dl Hct 36.3 L (42.0-52.0) % MCV 105.5 H (80.0-100.0) fL MCH 33.4 (25.0-34.0) pg MCHC 31.7 L (32.0-36.0) g/dL RDW Std Deviation 65.1 H (36.4-46.3) fL RDW Coeff of Sharmaine 16.8 H (11.5-14.5) % Plt Count 314 (130-400) K/uL MPV 11.1 (9.4-12.4) fL Immature Gran % (Auto) 0.8 % Neut % (Auto) 67.1 % Lymph % (Auto) 26.0 % [place] % (Auto) 5.4 % Eos % (Auto) 0.3 % Baso % (Auto) 0.4 % Neut # (Auto) 8.95 H (1.40-6.50) K/uL Lymph # (Auto) 3.46 H (1.20-3.40) K/uL [place] # (Auto) 0.72 H (0.11-0.59) K/uL Eos # (Auto) 0.04 (0.00-0.50) K/uL Baso # (Auto) 0.05 (0.00-0.20) K/uL Immature Gran # (Auto) 0.10 (0.01-0.20) K/uL Sodium 144 (136-145) mmol/L Potassium 4.1 (3.5-5.1) mmol/L Chloride 106 (98-107) mmol/L Carbon Dioxide 30 (21-32) mmol/L Anion Gap 8 (3-11) BUN 34 H (6-23) mg/dl Creatinine 1.42 H (0.6-1.4) mg/dl Est Cr Clr Drug Dosing 44.5 ml/min Est GFR ( Amer) 56.0 ml/min Est GFR (Non-Af Amer) 48.3 ml/min BUN/Creatinine Ratio 23.9 H (10-20) Glucose 111 H (70-99(Fasting)) mg/dl POC Glucose 132 H 111 H (70-99) mg/dl Calcium 8.7 (8.6-10.3) mg/dl Magnesium 2.2 (1.7-2.4) mg/dl Total Bilirubin 1.0 (0.2-1.0) mg/dl AST 33 (13-39) U/L ALT 19 (7-52) U/L Alkaline Phosphatase 107 H (34-104) U/L Total Protein 6.2 (6.0-8.3) gm/dl Albumin 3.5 (3.4-5.0) gm/dl Globulin 2.7 (2.5-4.0) gm/dl Albumin/Globulin Ratio 1.3 (0.9-2) Stl C. diff Tox B Gene (Neg) 09/09/23 09/09/23 09/09/23 Range/Units 12:15 10:23 08:15 WBC (4.8-10.8) K/ul RBC (4.70-6.10) M/uL Hgb (14.0-18.0) g/dl Hct (42.0-52.0) % MCV (80.0-100.0) fL MCH (25.0-34.0) pg MCHC (32.0-36.0) g/dL RDW Std Deviation (36.4-46.3) fL RDW Coeff of Sharmaine (11.5-14.5) % Plt Count (130-400) K/uL MPV (9.4-12.4) fL Immature Gran % (Auto) % Neut % (Auto) % Lymph % (Auto) % [place] % (Auto) % Eos % (Auto) % Baso % (Auto) % Neut # (Auto) (1.40-6.50) K/uL Lymph # (Auto) (1.20-3.40) K/uL [place] # (Auto) (0.11-0.59) K/uL Eos # (Auto) (0.00-0.50) K/uL Baso # (Auto) (0.00-0.20) K/uL Immature Gran # (Auto) (0.01-0.20) K/uL Sodium (136-145) mmol/L Potassium (3.5-5.1) mmol/L Chloride (98-107) mmol/L Carbon Dioxide (21-32) mmol/L Anion Gap (3-11) BUN (6-23) mg/dl Creatinine (0.6-1.4) mg/dl Est Cr Clr Drug Dosing ml/min Est GFR ( Amer) ml/min Est GFR (Non-Af Amer) ml/min BUN/Creatinine Ratio (10-20) Glucose (70-99(Fasting)) mg/dl POC Glucose 119 H 115 H (70-99) mg/dl Calcium (8.6-10.3) mg/dl Magnesium (1.7-2.4) mg/dl Total Bilirubin (0.2-1.0) mg/dl AST (13-39) U/L ALT (7-52) U/L Alkaline Phosphatase (34-104) U/L Total Protein (6.0-8.3) gm/dl Albumin (3.4-5.0) gm/dl Globulin (2.5-4.0) gm/dl Albumin/Globulin Ratio (0.9-2) Stl C. diff Tox B Gene Negative Cdiff Gene (Neg) Diagnostic Findings Chest X-Ray 09/10/23 07:00 XR chest 1V portable HISTORY: Shortness of breath. Congestive heart failure. Follow-up. COMPARISON: Chest 09/06/2023. FINDINGS: No pneumothorax. Trace bilateral pleural effusions. The heart remains enlarged. There are poststernotomy changes and left-sided pacemaker/d efibrillator. A few small bibasilar linear densities favor subsegmental atelectasis. There is progressive interstitial/vascular thickening consistent with mild pulmonary edema. IMPRESSION: Cardiomegaly with interval progression of the mild interstitial pulmonary edema. ACT 112: Negative or not required by law. Electronically signed by: Jeramy Millard M.D. 09/10/2023 7:46 AM PG Care Time/CCT Total # of Minutes Spent Total Time Spent with Patient: Total time spent is greater than 50% in coordination of care (as documented) at patient's floor/unit and/or counseling patient: Coding Level of Care Code 05050 SUB INP/OBS CARE 3/50MIN Diagnoses Wound dehiscence T81.30XA Fall W19.XXXA Chronic HFrEF (heart failure with reduced ejection fraction) I50.22 Nephrostomy status Z93.6 Right shoulder pain M25.511 Chronicity: acute Atrial fibrillation I48.91 Chronic respiratory failure with hypoxia J96.11 CAD (coronary artery disease) I25.10 CLL (chronic lymphocytic leukemia) C91.10 Diabetes mellitus, type 2 E11.9 NYLA (acute kidney injury) N17.9 Constipated K59.00 (5) Right shoulder pain Chronicity: acute Qualified Code(s): M25.511 - Pain in right shoulder
--- NOTE | 2023-09-10 09:40 | Infectious Disease Consult ---
Date of Consultation September 10, 2023 Assessment & Plan (1) Wound dehiscence: (2) CKD (chronic kidney disease) stage 3, GFR 30-59 ml/min: (3) Peripheral arterial disease: (4) Diabetes mellitus, type 2: Plan 73yo M with h/o afib, chronic respiratory failure on 3L NC, CAD s/p CABG, ICM s /p ICD in 2021, CKD III, CLL, bladder cancer s/p multiple TURBT, s/p left nephrostomy 06/25/23, T2DM, severe PVD, recent admissions in 07/2023 including for RLE cellulitis s/p CTX>cefadroxil and then recurrent RLE cellulitis/gangrene s/p BKA on 07/25 and vanc/cefepime who presented from rehab on 09/04 with right BKA site dehiscence and right shoulder pain after sustaining a mechanical fall. He had some redness of the incision site prior and was getting Levaquin for a few days. Here, he was afebrile, vss. WBC 11.51, Cr 1.30, LFT wnl. UA checked 09/06 had 21-50 WBC. XR right shoulder neg. XR R knee neg for fracture. CXR with prominent pulmonary vasculature. CT R shoulder with bony fracture. Found with R BKA dehiscence and seen by ortho who noted open area of stump with tibial exposure. S/p OR 09/04 and underwent I+D of right BKA site (per op note, marginal eschar noted, mildly necrotic skin and deeper tissue around area of incision, fibrinous exudate debrided, bone spicules debrided). Of note, also seen by urology, no intervention. He has been getting Unasyn and fluconazole. ID consulted on 09/09. Regarding BKA site, it seems he was getting abx outpatient for a soft tissue infection. And then site opened up 2/2 trauma with surgical management and bone coverage within ~6hrs of presentation. Per op note, seems most of all of nonviable soft tissue was debrided. Therefore, I dont think he needs a long course of abx. Can complete a 7d course for a soft tissue infection that he was being treated for from admission, which will be tomorrow. Note that yeast was noted on cx which may likely be a contaminant. Cultures with CONS and skin ally would also suggest colonizers and contamination. Per ortho notes, no s/o infection are noted and per op note, this tissue was excised. I will therefore favor stopping fluconazole at this point. Regarding pyuria, he doesnt complain of urinary symptoms and no tenderness noted one examination. I agree with urology about no intervention at this time. Nephrostomy tube is expected to be colonized and if there are no symptoms, then would not treat. If he does develop urinary symptoms or back/abdominal pain, signs of sepsis, then would pursue further treatment for urinary source. Micro: 09/04 MRSA screen: neg 09/04 BCX: ngtd 09/04 OR cx (right below knee stump): CONS 09/04 OR cx (tissue right below knee stump): prob anaerobic GPC, skin ally, yea st not Leslie albicans/dub 09/06 UCX: Enterococcus, Coryne, Pseudomonas 09/08 C diff: neg # Wound dehiscence of R BKA # Pyuria in setting of nephrostomy # h/o CLL # h/o bladder cancer s/p prior TURBT - continue Unasyn - will stop fluconazole - f/u OR cx - complete above antimicrobial through 09/10 (can change Unasyn to augmentin if plans for discharge) - monitor for urinary sx/sepsis if present then would pursue treatment for UTI and further management of nephrostomy at that time ID will continue to follow. If questions or concerns, contact Infectious Disease Call Center . Anna Hernández MD [facility], Division of Infectious Diseases [facility]: [phone] Consultation Information Consultation was provided via telemedicine using two-way real-time interactive telecommunication between the patient and the telemedicine provider. For the duration of the visit, the provider was performing the assessment from a different facility than the patient. This includesuse of bluetooth stethoscope forauscultationperformed by the telepresenter that the telemedicine provider can hear if described in the physical exam. [employer] Work[employer] contact information: Please call [facility] Call Center [phone]. (Phone Number For Physician Use Only) After establishing a telemedicine visit, patient was: Patient was verified with two unique identifiers, Patient/authorized rep acknowledged consent and understanding and Gave permission to continue telehealth session Time Spent with Patient: Initial => 75 min History of Present Illness Reason for Consultation: wound dihis, s/p I&D, prob cirilo GPC/yeast on cx Attending Physician: Anthony Concepcion History of Present Illness 73yo M with h/o afib, chronic respiratory failure on 3L NC, CAD s/p CABG, ICM s/p ICD in 2021, CKD III, CLL, bladder cancer s/p multiple TURBT, s/p left nephrostomy 06/25/23, T2DM, severe PVD, recent admissions in 07/2023 including for RLE cellulitis s/p CTX>cefadroxil and then recurrent RLE cellulitis/gangrene s/p BKA on 07/25 and vanc/cefepime who presented from rehab on 09/04 with right BKA site dehiscence and right shoulder pain after sustaining a mechanical fall. He said that he was transferring from bed to wheelchair, but the wheels on his chair locked causing it to tip over and him to fall to the ground on his right side. Otherwise denied chest pain, SOB, abdominal pain, n/v/d. Per chart, he had a few days of levaquin for surgical site infection prior to admission. Here, he was afebrile, vss. WBC 11.51, Cr 1.30, LFT wnl. UA checked 09/06 had 21-50 WBC. XR right shoulder neg. XR R knee neg for fracture. CXR with prominent pulmonary vasculature. CT R shoulder with bony fracture. Found with R BKA dehiscence and seen by ortho who noted open area of stump with tibial exposure. S/p OR 09/04 and underwent I+D of right BKA site (per op note, marginal eschar noted, mildly necrotic skin and deeper tissue around area of incision, fibrinous exudate debrided, bone spicules debrided). Of note, also seen by urology, no intervention. He has been getting uansyn and fluconazole added on 09/08. ID consulted on 09/09. On evaluation, patient reports that he had some redness and opening at the incision site. He is not sure if he was on abx. He currently does not have any pain. No abdominal pain or back pain. No current issues with his nephrostomy tube. He notes having shortness of breath at baseline. No n/v/d. Allergies Allergy/AdvReac Type Severity Reaction Status Date / Time enalapril Allergy Severe Angioedema Verified 09/05/23 15:24 brimonidine [From [facility]] Allergy Intermediate Hives Verified 09/05/23 15:24 timolol Allergy Intermediate Hives Verified 09/05/23 15:24 Home Medications Medication Instructions Recorded Confirmed Type aspirin 81 mg tablet,delayed 81 mg PO QAM 11/01/22 07/17/23 History release atorvastatin 40 mg tablet 40 mg PO PM 11/01/22 07/17/23 History budesonide 160 mcg-glycopyr 9 2 inh inhalation BID 11/01/22 07/17/23 History mcg-formot 4.8 mcg/actuation HFA inhaler (Breztri Aerosphere) calcium carbonate 600 mg PO QAM 11/01/22 07/17/23 History carvedilol 3.125 mg tablet 3.125 mg PO BID 11/01/22 07/17/23 History cyanocobalamin (vitamin B-12) 1,000 mcg PO QAM 11/01/22 07/17/23 History 1,000 mcg tablet empagliflozin 10 mg tablet 10 mg PO QAM 11/01/22 07/17/23 History (Jardiance) ferrous sulfate 27 mg iron tablet 27 mg PO QAM 11/01/22 07/17/23 History furosemide 40 mg tablet (Lasix) 40 mg PO BID 11/01/22 07/17/23 History hydralazine 25 mg tablet 25 mg PO TID 11/01/22 07/17/23 History nitroglycerin 0.4 mg sublingual 0.4 mg sublingual UD PRN Chest Pain 11/01/22 07/17/23 History tablet potassium chloride 20 mEq 20 meq PO QAM 11/01/22 07/17/23 History tablet,extended release psyllium husk 3.4 gram/5.4 gram 1 tbsp PO QAM 11/01/22 07/17/23 History oral powder (Metamucil) dimenhydrinate 50 mg tablet 50 mg PO Q8H PRN Nausea 12/14/22 07/17/23 History (Dramamine) apixaban 5 mg tablet (Eliquis) 5 mg PO BID 05/03/23 07/17/23 History acetaminophen 500 mg tablet 1,000 mg PO Q6H PRN Pain 05/09/23 07/17/23 History multivitamin 1 tab PO QAM 07/09/23 07/17/23 History Patient History Medical History Wound dehiscence Fall Peripheral arterial disease Chronic respiratory failure with hypoxia ICD (implantable cardioverter-defibrillator) in place 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 [place] Dyslipidemia HTN (hypertension) History of gout Hard of hearing No hearing aids Myocardial Infarction 1996 & 2016 Chronic obstructive pulmonary disease 3L via continuous Surgical History S/P below knee amputation History of bladder surgery TURBT History of anesthesia reaction slow to wake History of bone marrow biopsy Right node Lymph node biopsy (04/23/23)- CLL/SLL, negative for metastatic carcinoma History of colonoscopy H/O wisdom tooth extraction History of tonsillectomy History of adenoidectomy History of cataract surgery bilateral S/P ICD (internal cardiac defibrillator) procedure Implanted 2021>last checked February 2022 ? type S/P ablation of atrial fibrillation S/P angioplasty no stents S/P CABG x 2 2016 Family History Other No family history of adverse response to anesthesia Social History Smoking Status: Former smoker Tobacco Type: Cigarettes Cigarettes Per Day: 1-2 PPD; Smoking End Date: 2015; Second Hand Exposure: No; Do You Dip or Chew Tobacco: No; Hx Alcohol Use: No Hx Substance Use: No Preferred Language: Latvian Communication Ability: Effective Taker Off Drying Kiln Required: No Beliefs That Will Affect Care: None Current Living Situation: Rehab Current Living Situation Comment: [facility] Other Information That Helps Us Care for You: No Feels Safe at Home: Yes Safety Concerns: Feels Safe At This Time Assistive Devices: Cane, Oxygen - Continuous, Walker and Wheelchair Assistive Devices Comment: wears 3L NC chronically Review of System 10-point review of systems reviewed and are negative except for as above. Physical Exam Physical Exam: General: Awake, alert, no acute distress HEENT: NC/AT, EOMI, mmm Neck: supple Lungs: respirations non-labored Heart: nl peripheral perfusion Abdomen: soft, NT/ND Back: Left PCN with some bloody drainage in tube Ext: RLE wrapped Skin: no rash visible Neuro: moving all extremities Results & Data Vital Signs (Past 12 Hours) Vital Signs Temp Pulse Pulse Resp BP BP BP 09/10/23 08:32 97 H 09/10/23 08:11 09/10/23 07:40 36.4 C L 110 H 20 134/78 09/10/23 06:22 96 H 130/74 09/10/23 06:07 101 H 18 09/10/23 05:51 118 H 20 105/82 09/10/23 03:01 36.4 C L 118 H 20 125/80 09/09/23 23:58 36.5 C 106 H 20 146/89 H Pulse Ox O2 Del Method O2 Flow Rate 09/10/23 08:32 09/10/23 08:11 Nasal Cannula 4 09/10/23 07:40 98 Nasal Cannula 4 09/10/23 06:22 09/10/23 06:07 96 Nasal Cannula 5 09/10/23 05:51 09/10/23 03:01 94 Nasal Cannula 4 09/09/23 23:58 94 Nasal Cannula 4 Laboratory Results Labs reviewed. Diagnostic Findings Imaging reviewed.
--- NOTE | 2023-09-10 09:56 | Orthopedic Progress Note ---
Date of Service September 10, 2023 Assessment & Plan (1) Dehiscence of wound: Plan: Likely has an acute aggravation of a chronic right shoulder rotator cuff problem. The ossicle seen on CT scan is either a bone spur or a preos acromiale. There is no evidence of acute fracture. I would hold on a cortisone shot for the time being. He can do heat ice medication and PT. We can follow as an outpatient and give cortisone injection if needed. In regards to his right BKA stump things are healing well. Cultures have grown out multiple organisms including bacteria and a Leslie. Patient is currently on oral fluconazole and IV Unasyn. Clinically it looks well. His white count did bump up but he has not had any fevers. I do not see anything convincing for worsening infection in the right BKA stump. Dr. Worrell I think will be back tomorrow and we will let him be aware of what the situation is. A consult was placed for transition of care to the vascular service. (2) Right shoulder pain: Plan: Continue use of sling to offload pressure on the right upper extremity. Ice with easy wrap PT/OT Pain control with p.o. medication. May consider corticosteroid injection Admission and Anticipated Discharge Date Admission Date: September 05, 2023 Subjective This 73-year-old male is 5 days status post irrigation and debridement of wound dehiscence of his right BKA. Patient states that he is doing fairly well. Patient states that last week his Lasix was discontinued and he may have developed congestive heart failure. He states his Lasix was resumed. He also complains of increasing shortness of breath and weakness. For his shoulder he is currently using a sling. States that his pain is well-controlled in the lower extremity. 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 He localizes most of the pain over the anterior aspect. Patient is currently on Unasyn and oral fluconazole due to growth from his wound cultures. Otherwise, he denies chest pain, shortness of breath, fever, chills, sweats, nausea, vomiting or diarrhea. Review of Systems Review of Systems: All systems reviewed & are unremarkable except as noted in Subjective Physical Exam Physical Exam: Right lower extremity: Dressing was clean dry and intact and left in place. Patient was able to perform active straight leg raise test. Patient was able to detect light sensation to touch over his thigh and to the area just proximal to the surgical incision site. Knee range of motion was not able to be determined due to the placement of the splint. Right shoulder: Sling was removed from the patient's right shoulder. He localizes most of his pain over the bicipital groove has tenderness to palpation of this area. He is unable to forward flex or AB duct the arm actively. And has significant pain referred to the anterior shoulder with passive forward flexion and abduction. He has pain with Neer and Goncalves Donato impingement tests. He has no pain with crossarm testing. I was unable to passively AB duct and internally and externally rotate due to the patient's pain. He was able to reach terminal flexion and extension of his elbow without issue. He had full range of motion of his hand and wrist and fingers and was able to detect light sensation to touch. He also has some mild tenderness to palpation over the AC joint but no tenderness over the glenohumeral groove or posterior shoulder musculature. Patient was neurovascularly intact in the right upper extremity. Results & Data Vital Signs (Past 12 Hours) Vital Signs Temp Pulse Pulse Resp BP BP BP 09/10/23 08:32 97 H 09/10/23 08:11 09/10/23 07:40 36.4 C L 110 H 20 134/78 09/10/23 06:22 96 H 130/74 09/10/23 06:07 101 H 18 09/10/23 05:51 118 H 20 105/82 09/10/23 03:01 36.4 C L 118 H 20 125/80 09/09/23 23:58 36.5 C 106 H 20 146/89 H Pulse Ox O2 Del Method O2 Flow Rate 09/10/23 08:32 09/10/23 08:11 Nasal Cannula 4 09/10/23 07:40 98 Nasal Cannula 4 09/10/23 06:22 09/10/23 06:07 96 Nasal Cannula 5 09/10/23 05:51 09/10/23 03:01 94 Nasal Cannula 4 09/09/23 23:58 94 Nasal Cannula 4 Diagnostic Findings Laboratory Results WBC 13.32 K/ul (4.8-10.8) H 09/10/23 06:10 RBC 3.44 M/uL (4.70-6.10) L 09/10/23 06:10 Hgb 11.5 g/dl (14.0-18.0) L 09/10/23 06:10 Hct 36.3 % (42.0-52.0) L 09/10/23 06:10 MCV 105.5 fL (80.0-100.0) H 09/10/23 06:10 MCH 33.4 pg (25.0-34.0) 09/10/23 06:10 MCHC 31.7 g/dL (32.0-36.0) L 09/10/23 06:10 RDW Std Deviation 65.1 fL (36.4-46.3) H 09/10/23 06:10 RDW Coeff of Sharmaine 16.8 % (11.5-14.5) H 09/10/23 06:10 Plt Count 314 K/uL (130-400) 09/10/23 06:10 MPV 11.1 fL (9.4-12.4) 09/10/23 06:10 Immature Gran % (Auto) 0.8 % 09/10/23 06:10 Neut % (Auto) 67.1 % 09/10/23 06:10 Lymph % (Auto) 26.0 % 09/10/23 06:10 [place] % (Auto) 5.4 % 09/10/23 06:10 Eos % (Auto) 0.3 % 09/10/23 06:10 Baso % (Auto) 0.4 % 09/10/23 06:10 Neut # (Auto) 8.95 K/uL (1.40-6.50) H 09/10/23 06:10 Lymph # (Auto) 3.46 K/uL (1.20-3.40) H 09/10/23 06:10 [place] # (Auto) 0.72 K/uL (0.11-0.59) H 09/10/23 06:10 Eos # (Auto) 0.04 K/uL (0.00-0.50) 09/10/23 06:10 Baso # (Auto) 0.05 K/uL (0.00-0.20) 09/10/23 06:10 Immature Gran # (Auto) 0.10 K/uL (0.01-0.20) 09/10/23 06:10 Platelet Estimate Normal (Normal) 09/06/23 07:00 PT 11.4 Seconds (9.0-12.0) 09/06/23 06:34 INR 1.1 (0.9-1.1) 09/06/23 06:34 APTT 29 Seconds (21-31) 09/05/23 12:33 PTT Ratio 1.1 09/05/23 12:33 Sodium 144 mmol/L (136-145) 09/10/23 06:10 Potassium 4.1 mmol/L (3.5-5.1) 09/10/23 06:10 Chloride 106 mmol/L (98-107) 09/10/23 06:10 Carbon Dioxide 30 mmol/L (21-32) 09/10/23 06:10 Anion Gap 8 (3-11) 09/10/23 06:10 BUN 34 mg/dl (6-23) H 09/10/23 06:10 Creatinine 1.42 mg/dl (0.6-1.4) H 09/10/23 06:10 Est Cr Clr Drug Dosing 44.5 ml/min 09/10/23 06:10 Est GFR ( Amer) 56.0 ml/min 09/10/23 06:10 Est GFR (Non-Af Amer) 48.3 ml/min 09/10/23 06:10 BUN/Creatinine Ratio 23.9 (10-20) H 09/10/23 06:10 Glucose 111 mg/dl (70-99(Fasting)) H 09/10/23 06:10 POC Glucose 101 mg/dl (70-99) H 09/10/23 08:09 Calcium 8.7 mg/dl (8.6-10.3) 09/10/23 06:10 Magnesium 2.2 mg/dl (1.7-2.4) 09/10/23 06:10 Total Bilirubin 1.0 mg/dl (0.2-1.0) 09/10/23 06:10 AST 33 U/L (13-39) 09/10/23 06:10 ALT 19 U/L (7-52) 09/10/23 06:10 Alkaline Phosphatase 107 U/L (34-104) H 09/10/23 06:10 Total Protein 6.2 gm/dl (6.0-8.3) 09/10/23 06:10 Albumin 3.5 gm/dl (3.4-5.0) 09/10/23 06:10 Globulin 2.7 gm/dl (2.5-4.0) 09/10/23 06:10 Albumin/Globulin Ratio 1.3 (0.9-2) 09/10/23 06:10 Vitamin B12 885 pg/ml (180-914) 09/06/23 08:15 Folate > 22.30 ng/ml (>5.38) 09/06/23 08:15 TSH 2.439 uIu/ml (0.300-4.500) 09/05/23 12:33 Urine Color Yellow 09/07/23 10:11 Urine Appearance Turbid (Clear) A 09/07/23 10:11 Urine pH 8.0 (4.5-7.5) H 09/07/23 10:11 Ur Specific [place] 1.009 (1.000-1.030) 09/07/23 10:11 Urine Protein 3+ (Negative) H 09/07/23 10:11 Urine Glucose (UA) Negative (Negative) 09/07/23 10:11 Urine Ketones Negative (Negative) 09/07/23 10:11 Urine Blood 3+ (Negative) H 09/07/23 10:11 Urine Nitrite Negative (Negative) 09/07/23 10:11 Urine Bilirubin Negative (Negative) 09/07/23 10:11 Urine Urobilinogen Negative (Negative) 09/07/23 10:11 Ur Leukocyte Esterase 3+ (Negative) H 09/07/23 10:11 Urine WBC (Auto) 21-50 /hpf (0-5) H 09/07/23 10:11 Urine RBC (Auto) >20 /hpf (0-2) H 09/07/23 10:11 U Hyaline Cast (Auto) 3-5 /lpf (0-2) H 09/07/23 10:11 U Epithel Cells (Auto) 0-2 /hpf (0-2) 09/07/23 10:11 Urine Bacteria (Auto) 4+ (None Seen) H 09/07/23 10:11 Nasal Screen MRSA (PCR) Negative (Negative) 09/05/23 Unknown Stl C. diff Tox B Gene Negative Cdiff Gene (Neg) 09/09/23 10:23 Blood Type O Positive 09/05/23 14:48 Antibody Screen NEGATIVE 09/05/23 14:48 Impressions Shoulder X-Ray 09/05/23 12:26 XR shoulder RT min 2V routine CLINICAL HISTORY: fall, shoulder pain TECHNIQUE: 3 views of the right shoulder were obtained. Comparison: None available at the time of this dictation. FINDINGS: There is no evidence of an acute fracture. Degenerative changes are seen in the glenohumeral joint. The overlying soft tissues are unremarkable. The visualized portions of the lungs are clear. IMPRESSION: Degenerative changes without evidence of acute abnormality. ACT 112: Negative or not required by law. Electronically signed by: Jay Ricketts M.D. 09/05/2023 1:55 PM Knee X-Ray 09/05/23 19:32 XR knee RT 1 or 2V routine CLINICAL HISTORY: Surgical Post Op COMPARISON: Right knee radiographs performed earlier today. FINDINGS: Postoperative findings consistent with right below-knee amputation. There are no fractures or radiopaque foreign bodies. Surgical drain is in place. Extensive vascular calcification is incidentally noted. IMPRESSION: Status post right below knee amputation. Surgical drain in place. No unexpected radiopaque foreign bodies. ACT 112: Negative or not required by law. Electronically signed by: Biju Lr M.D. 09/06/2023 7:[address] 09/06/23 11:02 CT shoulder RT wo con CLINICAL HISTORY: fall, decreased ROM/R shoulder pain, eval fracture TECHNIQUE: Multidetector row helical CT of the right shoulder was performed without intravenous contrast. Coronal and sagittal reformations were obtained. Automated dose lowering techniques and/or adjustment according to patient size were utilized for this examination. CT DOSE: 464.45 mGy.cm Comparison: Comparison is made to right shoulder radiographs 09/05/2023 FINDINGS: Degenerative changes are seen in the acromioclavicular joint. There is a bony fragment arising from the anterior tip of the acromion. The soft tissues are unremarkable. IMPRESSION: Bony fracture arising from the tip of the acromion may represent nondisplaced fracture or chronic bony fragment. Correlation with point tenderness is recommended. ACT 112: Negative or not required by law. Electronically signed by: Jay Ricketts M.D. 09/06/2023 1:46 PM KUB X-Ray 09/08/23 12:39 KUB HISTORY: constipation, discomfort, eval stool burden/ileus COMPARISON: Abdomen and pelvis CTA 07/12/2023. FINDINGS: The bowel gas pattern is unremarkable. There are no dilated loops of small bowel to suggest an obstruction. No renal calculi. No ureteral calculi. No pneumoperitoneum or pneumatosis. Moderate to large amount of well-formed stool within the colon and rectum. A left-sided percutaneous nephrostomy tube is noted. A pacemaker wire is partially visualized. Mild interstitial thickening at the lung bases. IMPRESSION: 1. Nonobstructive bowel gas pattern. 2. Moderate to large amount of well-formed stool within the colon and rectum. ACT 112: Negative or not required by law. Electronically signed by: Jeramy Millard M.D. 09/08/2023 2:08 PM Chest X-Ray 09/10/23 07:00 XR chest 1V portable HISTORY: Shortness of breath. Congestive heart failure. Follow-up. COMPARISON: Chest 09/06/2023. FINDINGS: No pneumothorax. Trace bilateral pleural effusions. The heart remains enlarged. There are poststernotomy changes and left-sided pacemaker/defibrillator. A few small bibasilar linear densities favor subsegmental atelectasis. There is progressive interstitial/vascular thickening consistent with mild pulmonary edema. IMPRESSION: Cardiomegaly with interval progression of the mild interstitial pulmonary edema. ACT 112: Negative or not required by law. Electronically signed by: Jeramy Millard M.D. 09/10/2023 7:46 AM (2) Right shoulder pain Chronicity: acute Qualified Code(s): M25.511 - Pain in right shoulder
--- NOTE | 2023-09-10 11:53 | Consultation ---
Date of Consultation September 10, 2023 History of Present Illness Attending Physician: Anthony Concepcion History of Present Illness This patient admitted with dehiscence of his bka stump. It was taken care of by ortho. Patient care of the stump has been turned back over to vascular. Post op care. No consult needed. Allergies Allergy/AdvReac Type Severity Reaction Status Date / Time enalapril Allergy Severe Angioedema Verified 09/05/23 15:24 brimonidine [From Combigan] Allergy Intermediate Hives Verified 09/05/23 15:24 timolol Allergy Intermediate Hives Verified 09/05/23 15:24 Home Medications Medication Instructions Recorded Confirmed Type aspirin 81 mg tablet,delayed 81 mg PO QAM 11/01/22 07/17/23 History release atorvastatin 40 mg tablet 40 mg PO PM 11/01/22 07/17/23 History budesonide 160 mcg-glycopyr 9 2 inh inhalation BID 11/01/22 07/17/23 History mcg-formot 4.8 mcg/actuation HFA inhaler (Breztri Aerosphere) calcium carbonate 600 mg PO QAM 11/01/22 07/17/23 History carvedilol 3.125 mg tablet 3.125 mg PO BID 11/01/22 07/17/23 History cyanocobalamin (vitamin B-12) 1,000 mcg PO QAM 11/01/22 07/17/23 History 1,000 mcg tablet empagliflozin 10 mg tablet 10 mg PO QAM 11/01/22 07/17/23 History (Jardiance) ferrous sulfate 27 mg iron tablet 27 mg PO QAM 11/01/22 07/17/23 History furosemide 40 mg tablet (Lasix) 40 mg PO BID 11/01/22 07/17/23 History hydralazine 25 mg tablet 25 mg PO TID 11/01/22 07/17/23 History nitroglycerin 0.4 mg sublingual 0.4 mg sublingual UD PRN Chest Pain 11/01/22 07/17/23 History tablet potassium chloride 20 mEq 20 meq PO QAM 11/01/22 07/17/23 History tablet,extended release psyllium husk 3.4 gram/5.4 gram 1 tbsp PO QAM 11/01/22 07/17/23 History oral powder (Metamucil) dimenhydrinate 50 mg tablet 50 mg PO Q8H PRN Nausea 12/14/22 07/17/23 History (Dramamine) apixaban 5 mg tablet (Eliquis) 5 mg PO BID 05/03/23 07/17/23 History acetaminophen 500 mg tablet 1,000 mg PO Q6H PRN Pain 05/09/23 07/17/23 History multivitamin 1 tab PO QAM 07/09/23 07/17/23 History Patient History Medical History Wound dehiscence Fall Peripheral arterial disease Chronic respiratory failure with hypoxia ICD (implantable cardioverter-defibrillator) in place 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 police judge, Implant date 10/05/2021 Ischemic cardiomyopathy ICD 09/2021 CAD (coronary artery disease) CABG x 2 07/2016 Angioplasty 1996 CLL (chronic lymphocytic leukemia) known hx x years Diabetes mellitus, type 2 NIDDM SOB (shortness of breath) CKD (chronic kidney disease) History of cellulitis Right Great toe- completed antibiotics Swelling and erythema significantly improved but still has mild pain (improved from previous) CHF (congestive heart failure) followed by Dr. Ortega Dyslipidemia HTN (hypertension) History of gout Hard of hearing No hearing aids Myocardial Infarction 1996 & 2016 Chronic obstructive pulmonary disease 3L via continuous Surgical History S/P below knee amputation History of bladder surgery TURBT History of anesthesia reaction slow to wake History of bone marrow biopsy Right node Lymph node biopsy (04/23/23)- CLL/SLL, negative for metastatic carcinoma History of colonoscopy H/O wisdom tooth extraction History of tonsillectomy History of adenoidectomy History of cataract surgery bilateral S/P ICD (internal cardiac defibrillator) procedure Implanted 2021>last checked February 2022 ? type S/P ablation of atrial fibrillation S/P angioplasty no stents S/P CABG x 2 2016 Family History Other No family history of adverse response to anesthesia Social History Smoking Status: Former smoker Tobacco Type: Cigarettes Cigarettes Per Day: 1-2 PPD; Smoking End Date: 2015; Second Hand Exposure: No; Do You Dip or Chew Tobacco: No; Hx Alcohol Use: No Hx Substance Use: No Preferred Language: Yakut Communication Ability: Effective Arson And [employer] Investigator Required: No Beliefs That Will Affect Care: None Current Living Situation: Rehab Current Living Situation Comment: [facility] Other Information That Helps Us Care for You: No Feels Safe at Home: Yes Safety Concerns: Feels Safe At This Time Assistive Devices: Cane, Oxygen - Continuous, Walker and Wheelchair Assistive Devices Comment: wears 3L NC chronically Results & Data Vital Signs (Past 12 Hours) Vital Signs Temp Pulse Pulse Resp BP BP BP 09/10/23 11:41 36.6 C 99 H 20 110/65 09/10/23 08:32 97 H 09/10/23 08:11 09/10/23 07:40 36.4 C L 110 H 20 134/78 09/10/23 06:22 96 H 130/74 09/10/23 06:07 101 H 18 09/10/23 05:51 118 H 20 105/82 09/10/23 03:01 36.4 C L 118 H 20 125/80 09/09/23 23:58 36.5 C 106 H 20 146/89 H Pulse Ox O2 Del Method O2 Flow Rate 09/10/23 11:41 93 Nasal Cannula 4 09/10/23 08:32 09/10/23 08:11 Nasal Cannula 4 09/10/23 07:40 98 Nasal Cannula 4 09/10/23 06:22 09/10/23 06:07 96 Nasal Cannula 5 09/10/23 05:51 09/10/23 03:01 94 Nasal Cannula 4 09/09/23 23:58 94 Nasal Cannula 4
--- NOTE | 2023-09-10 17:08 | Cardiology Consultation ---
Date of Consultation September 10, 2023 Assessment & Plan (1) Chronic HFrEF (heart failure with reduced ejection fraction): (2) Atrial fibrillation: (3) CAD (coronary artery disease): (4) Ischemic cardiomyopathy: (5) ICD (implantable cardioverter-defibrillator) in place: (6) HTN (hypertension): (7) Mitral regurgitation: (8) Tricuspid regurgitation: (9) Pulmonary hypertension: Plan ASSESSMENT/PLAN: 1. Chronic heart failure with reduced EF: Was not felt to be in heart failure exacerbation on presentation but received IV fluid while here and now appears hypervolemic. Recommended intravenous Lasix. Hospitalist service arrange for 40 mg of Lasix IV x 1. Reevaluate tomorrow. May need an additional dose. Try to achieve approximately 1 L net negative fluid balance today. Daily weights. Strict I's and O's. Low-sodium diet, less than 2000 mg daily. Continue carve dilol and titrate as able. Angioedema to PANCHITO inhibitor and therefore no PANCHITO inhibitors, ARB, Entresto. Recommend spironolactone 25 mg once daily. Continue SGLT2 inhibitor. 2. Atrial fibrillation: Has had rapid ventricular response. Permanent atrial fibrillation. In part, may be due to his other acute issues such as wound dehiscence and being treated for infection. Recommend increasing carvedilol to 6.25 mg twice daily. Continue anticoagulation for stroke risk reduction. 3. Ischemic cardiomyopathy: Severely reduced LV systolic function based on reports. Repeat echo. Prior myocardial infarction's. Continue carvedilol. On hydralazine at home and can consider adding nitrate therapy in the form of isosorbide mononitrate. No PANCHITO inhibitor/ARB/Arni due to angioedema with PANCHITO inhibitor. ICD in place. 4. ICD: Follows with electrophysiology in [place]. 5. CAD s/p CABG x 2: No angina. Continue beta-qian, high intensity statin therapy. 6. Mitral and tricuspid regurgitation: Reported as severe MR and moderate to severe TR nearly 1 year ago at outside facility. Repeat echo. Ultimately defer to his primary surveying teacher. 7. Pulmonary hypertension: Likely multifactorial including chronic respiratory failure with hypoxia, COPD, valvular disease and heart failure. Repeat echo. 8. Hypertension: Blood pressure normotensive today. Further adjustments made for heart failure/A-fib. 9. Disposition: Cardiology will continue to follow. Close follow-up with his outpatient surveying teacher, Dr. Ortega, on discharge. Patient care communicated with Linda Guillen PA-C, of the hospitalist service. Highly complex medical issues. Thank you for allowing me to participate in the care of your patient. Please call for any other questions or concerns. Sincerely, David Gavin M.D. History of Present Illness Reason for Consultation: "CHF, EF 25%, afib/flutter" Requesting Physician: Linda Guillen PA-C Attending Physician: Anthony Concepcion History of Present Illness Mr. Flynn is a very pleasant 73-year-old gentleman with a history significant for CAD s/p CABG x 2 ([place] 07/18/16), myocardial infarction (May 1996 and 2016), ischemic cardiomyopathy s/p ICD ([facility] [place]), CKD, CLL, bladder cancer, left nephrostomy tube (06/25/2023) type 2 diabetes, severe PVD, atrial fibrillation, chronic respiratory failure with hypoxia on supplemental oxygen (3 L via nasal cannula, COPD, dyslipidemia, heart failure with reduced EF. His primary surveying teacher is Dr. Ortega of [facility] in the [place] area. He was admitted on 09/05/2023 with wound dehiscence for right BKA (07/26/2023) after sustaining a mechanical fall. According to admitting note, he was felt to be euvolemic initially. He was then felt to be hypovolemic and given 2 L of IV fluid according to hospital records. He reports that he fell, injuring his right leg wound. At home typically his heart rate is in the 70s to 90s. He has permanent atrial fibrillation. He has been on carvedilol 3.125 mg twice daily through his primary surveying teacher. He remembers being on a higher dose in the past and does not recall any adverse reaction. While here, he has had increased shortness of breath today and orthopnea. He states it feels like prior heart failure symptoms. He felt lightheaded this morning but denies chest pain or syncope. He recalls that on admission his jackie thing was at baseline. He has had edema in the past but believes it is better. He does not recall ever having an ICD shock. He recalls having a cardiomyopathy for years. He has been seen by orthopedics and infectious disease while here. Review of systems: As above. Review of systems otherwise negative/unremarkable. Family history: Unknown by patient. Social history: He quit smoking in 2015. He quit consuming alcohol in 2011. He is and lives at home with his , Violet. Has a daughter and Carey. He currently lives in [facility] near [place]. He was unaccompanied in his hospital room. Allergies Allergy/AdvReac Type Severity Reaction Status Date / Time enalapril Allergy Severe Angioedema Verified 09/05/23 15:24 brimonidine [From Combigan] Allergy Intermediate Hives Verified 09/05/23 15:24 timolol Allergy Intermediate Hives Verified 09/05/23 15:24 Home Medications Medication Instructions Recorded Confirmed Type aspirin 81 mg tablet,delayed 81 mg PO QAM 11/01/22 07/17/23 History release atorvastatin 40 mg tablet 40 mg PO PM 11/01/22 07/17/23 History budesonide 160 mcg-glycopyr 9 2 inh inhalation BID 11/01/22 07/17/23 History mcg-formot 4.8 mcg/actuation HFA inhaler (Breztri Aerosphere) calcium carbonate 600 mg PO QAM 11/01/22 07/17/23 History carvedilol 3.125 mg tablet 3.125 mg PO BID 11/01/22 07/17/23 History cyanocobalamin (vitamin B-12) 1,000 mcg PO QAM 11/01/22 07/17/23 History 1,000 mcg tablet empagliflozin 10 mg tablet 10 mg PO QAM 11/01/22 07/17/23 History (Jardiance) ferrous sulfate 27 mg iron tablet 27 mg PO QAM 11/01/22 07/17/23 History furosemide 40 mg tablet (Lasix) 40 mg PO BID 11/01/22 07/17/23 History hydralazine 25 mg tablet 25 mg PO TID 11/01/22 07/17/23 History nitroglycerin 0.4 mg sublingual 0.4 mg sublingual UD PRN Chest Pain 11/01/22 07/17/23 History tablet potassium chloride 20 mEq 20 meq PO QAM 11/01/22 07/17/23 History tablet,extended release psyllium husk 3.4 gram/5.4 gram 1 tbsp PO QAM 11/01/22 07/17/23 History oral powder (Metamucil) dimenhydrinate 50 mg tablet 50 mg PO Q8H PRN Nausea 12/14/22 07/17/23 History (Dramamine) apixaban 5 mg tablet (Eliquis) 5 mg PO BID 05/03/23 07/17/23 History acetaminophen 500 mg tablet 1,000 mg PO Q6H PRN Pain 05/09/23 07/17/23 History multivitamin 1 tab PO QAM 07/09/23 07/17/23 History Patient History Medical History Wound dehiscence Fall Peripheral arterial disease Chronic respiratory failure with hypoxia ICD (implantable cardioverter-defibrillator) in place 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 helper, Implant date 10/05/2021 Ischemic cardiomyopathy ICD 09/2021 CAD (coronary artery disease) CABG x 2 07/2016 Angioplasty 1996 CLL (chronic lymphocytic leukemia) known hx x years Diabetes mellitus, type 2 NIDDM SOB (shortness of breath) CKD (chronic kidney disease) History of cellulitis Right Great toe- completed antibiotics Swelling and erythema significantly improved but still has mild pain (improved from previous) CHF (congestive heart failure) followed by Dr. Ortega Dyslipidemia HTN (hypertension) History of gout Hard of hearing No hearing aids Myocardial Infarction 1996 & 2016 Chronic obstructive pulmonary disease 3L via continuous Surgical History S/P below knee amputation History of bladder surgery TURBT History of anesthesia reaction slow to wake History of bone marrow biopsy Right node Lymph node biopsy (04/23/23)- CLL/SLL, negative for metastatic carcinoma History of colonoscopy H/O wisdom tooth extraction History of tonsillectomy History of adenoidectomy History of cataract surgery bilateral S/P ICD (internal cardiac defibrillator) procedure Implanted 2021>last checked February 2022 ? 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 Alert and oriented. HEENT: Anicteric sclera. Neck: JVD [facility] to the mandible. Hepatojugular reflux. No bruits. Normal carotid upstrokes bilaterally. Cardiac: No ventricular heave. Irregularly irregular. Normal S1-S2. No murmurs, rubs, or gallops. Pulmonary: Decreased breath sounds at the right base, but otherwise clear to auscultation bilaterally without wheezes, rales, or rhonchi. Abdomen: Soft, nontender, nondistended, with normoactive bowel sounds. No bruits noted. Extremities: 2+ radial pulses bilaterally. 2+ posterior tibialis pulses bilaterally. No edema or cyanosis. Psychiatric: Affect appears appropriate. Results & Data Vital Signs (Past 12 Hours) Vital Signs Temp Pulse Pulse Resp BP BP BP 09/10/23 16:05 99 H 09/10/23 15:47 36.6 C 94 H 18 124/74 09/10/23 11:41 36.6 C 99 H 20 110/65 09/10/23 08:32 97 H 09/10/23 08:11 09/10/23 07:40 36.4 C L 110 H 20 134/78 09/10/23 06:22 96 H 130/74 09/10/23 06:07 101 H 18 09/10/23 05:51 118 H 20 105/82 Pulse Ox O2 Del Method O2 Flow Rate 09/10/23 16:05 09/10/23 15:47 95 Nasal Cannula 4 09/10/23 11:41 93 Nasal Cannula 4 09/10/23 08:32 09/10/23 08:11 Nasal Cannula 4 09/10/23 07:40 98 Nasal Cannula 4 09/10/23 06:22 09/10/23 06:07 96 Nasal Cannula 5 09/10/23 05:51 Intake & Output 09/08/23 09/09/23 09/10/23 09/11/23 06:59 06:59 06:59 06:59 Intake Total 2310 / 2310 2125 / 2125 880 / 880 620 / 620 Output Total 1225 / 1225 1351 / 1351 1482 / 1482 400 / 400 Balance 1085 / 1085 774 / 774 -602 / -602 220 / 220 Weight 169 lb 12.095 oz 172 lb 1.6 oz 169 lb 5.04 oz Laboratory Results Laboratory Results - last 24 hr 09/10/23 09/10/23 09/10/23 06:10 08:09 12:04 WBC 13.32 H RBC 3.44 L Hgb 11.5 L Hct 36.3 L MCV 105.5 H MCH 33.4 MCHC 31.7 L RDW Std Deviation 65.1 H RDW Coeff of Sharmaine 16.8 H Plt Count 314 MPV 11.1 Immature Gran % (Auto) 0.8 Neut % (Auto) 67.1 Lymph % (Auto) 26.0 [place] % (Auto) 5.4 Eos % (Auto) 0.3 Baso % (Auto) 0.4 Neut # (Auto) 8.95 H Lymph # (Auto) 3.46 H [place] # (Auto) 0.72 H Eos # (Auto) 0.04 Baso # (Auto) 0.05 Immature Gran # (Auto) 0.10 Sodium 144 Potassium 4.1 Chloride 106 Carbon Dioxide 30 Anion Gap 8 BUN 34 H Creatinine 1.42 H Est Cr Clr Drug Dosing 44.5 Est GFR ( Amer) 56.0 Est GFR (Non-Af Amer) 48.3 BUN/Creatinine Ratio 23.9 H Glucose 111 H POC Glucose 101 H 145 H Calcium 8.7 Magnesium 2.2 Total Bilirubin 1.0 AST 33 ALT 19 Alkaline Phosphatase 107 H Total Protein 6.2 Albumin 3.5 Globulin 2.7 Albumin/Globulin Ratio 1.3 09/10/23 09/10/23 17:26 20:17 WBC RBC Hgb Hct MCV MCH MCHC RDW Std Deviation RDW Coeff of Sharmaine Plt Count MPV Immature Gran % (Auto) Neut % (Auto) Lymph % (Auto) [place] % (Auto) Eos % (Auto) Baso % (Auto) Neut # (Auto) Lymph # (Auto) [place] # (Auto) Eos # (Auto) Baso # (Auto) Immature Gran # (Auto) Sodium Potassium Chloride Carbon Dioxide Anion Gap BUN Creatinine Est Cr Clr Drug Dosing Est GFR ( Amer) Est GFR (Non-Af Amer) BUN/Creatinine Ratio Glucose POC Glucose 112 H 175 H Calcium Magnesium Total Bilirubin AST ALT Alkaline Phosphatase Total Protein Albumin Globulin Albumin/Globulin Ratio Diagnostic Findings Labs reviewed and notable for mildly abnormal but stable renal function, normal potassium, normal transaminase levels, normal magnesium, mild leukocytosis, mild anemia. Chest x-ray 09/10/2023: Interval progression of mild interstitial pulmonary edema per radiology. ECG personally reviewed from 09/05/2023 at 1311: Atrial fibrillation 91 bpm. Possible LVH with repolarization abnormality. Hospitalist progress note reviewed. Infectious disease consultation reviewed. Echo 10/25/2022 [place]: Mild LV dilation. EF 25 to 30%. Global hypokinesis with akinesis of the basal segment. Mildly dilated and hypokinetic RV. Severe biatrial dilation. Sclerotic aortic valve with mild AI. Severe MR. Moderate to severe TR. Moderate pulmonary hypertension. Telemetry personally reviewed: Atrial fibrillation with mild rapid ventricular rate at times. Heart rate was 90s when evaluated late this afternoon. Medications Administered Current Inpatient Medications Acetaminophen (Acetaminophen 500 Mg Tab) 1,000 mg PO Q8 [facility] Stop: 10/05/23 21:59 Last Admin: 09/10/23 21:38 Dose: 1,000 mg Al Hydrox/Mg Hydrox/Simethicone (Aluminum/Magnesium Susp 30 Ml Udc) 15 ml PO Q4H PRN PRN Reason: Heartburn Stop: 10/05/23 19:30 Apixaban (Apixaban 5 Mg Tablet) 5 mg PO BID [facility] Stop: 10/06/23 08:59 Last Admin: 09/10/23 21:36 Dose: 5 mg Aspirin (Aspirin 81 Mg Ectab) 81 mg PO QAM [facility] Stop: 10/06/23 08:59 Last Admin: 09/10/23 07:13 Dose: 81 mg Atorvastatin Calcium (Atorvastatin 40 Mg Tab) 40 mg PO PM [facility] Stop: 10/05/23 20:59 Last Admin: 09/10/23 21:35 Dose: 40 mg Bisacodyl (Bisacodyl 10 Mg Supp) 10 mg SD DAILY PRN PRN Reason: Constipation Stop: 10/05/23 19:30 Last Admin: 09/08/23 12:40 Dose: 10 mg Calcium Carbonate (Calcium Carbonate 1250mg Tab) 1 tab PO QAM [facility] Stop: 10/06/23 08:59 Last Admin: 09/10/23 07:10 Dose: 1 tab Carvedilol (Carvedilol 6.25 Mg Tab) 6.25 mg PO BIDM [facility] Stop: 10/09/23 16:59 Last Admin: 09/10/23 17:44 Dose: 6.25 mg Cyanocobalamin (Cyanocobalamin (B-12) 500 Mcg Tablet) 1,000 mcg PO QAM [facility] Stop: 10/06/23 08:59 Last Admin: 09/10/23 07:10 Dose: 1,000 mcg Dextrose (Dextrose 50% 50 Ml Syringe) 25 - 50 ml IV UD PRN; Protocol PRN Reason: Hypoglycemia Protocol Stop: 10/05/23 14:32 Diclofenac Sodium (Diclofenac Sod 1% Gel 100 Gm Tube) 4 gm EXT TID [facility]; Protocol Stop: 10/06/23 10:59 Last Admin: 09/10/23 21:37 Dose: 4 gm Dimenhydrinate (Dimenhydrinate 50 Mg Tab) 50 mg PO Q8H PRN PRN Reason: Nausea Stop: 10/05/23 19:34 Diphenhydramine HCl (Diphenhydramine 50 Mg/Ml Vial) 25 mg IV Q8H PRN PRN Reason: Itching Stop: 10/05/23 19:30 Docusate Sodium (Docusate Sodium 100 Mg Cap) 100 mg PO BID [facility] Stop: 10/05/23 20:59 Last Admin: 09/10/23 21:36 Dose: 100 mg Empagliflozin (Empagliflozin 10 Mg Tab) 10 mg PO DAILY [facility] Stop: 10/07/23 08:59 Last Admin: 09/10/23 07:12 Dose: 10 mg Ferrous Sulfate (Ferrous Sulfate 325 Mg Tab) 325 mg PO QAM [facility] Stop: 10/06/23 08:59 Last Admin: 09/10/23 07:13 Dose: 325 mg Fluticasone Furoate (Fluticasone Furoate 200mcg 14 Puffs/Inhaler) 1 puffs INH DAILY [facility] Stop: 10/06/23 08:59 Last Admin: 09/10/23 07:11 Dose: 1 puffs Furosemide (Furosemide 40 Mg Tab) 40 mg PO BID17 [facility] Stop: 10/11/23 08:59 Glucagon (Glucagon For Inj 1 Mg Vial) 1 mg SQ UD PRN; Protocol PRN Reason: Hypoglycemia Protocol Stop: 10/05/23 14:32 Glucose (Glucose 40% Gel 15 Gm Tube) 15 - 30 gm PO UD PRN; Protocol PRN Reason: Hypoglycemia Protocol Stop: 10/05/23 14:32 Glucose (Glucose 10 Tab/Tube) 4 - 8 tab PO UD PRN; Protocol PRN Reason: Hypoglycemia Treatment Stop: 10/05/23 14:32 Hydralazine HCl (Hydralazine Hcl 25 Mg Tab) 25 mg PO TID [facility] Stop: 10/05/23 20:59 Last Admin: 09/10/23 21:37 Dose: 25 mg Hydromorphone HCl (Hydromorphone Inj 0.5 Mg/0.5 Ml Syr) 0.5 mg IV Q4H PRN PRN Reason: Pain or Pre PT Stop: 09/19/23 19:30 Last Admin: 09/07/23 11:25 Dose: 0.5 mg Ampicillin Sodium/Sulbactam Sodium 3,000 mg/ Sodium Chloride 100 mls @ 200 mls/hr IV Q6H [facility] Stop: 09/11/23 23:59 Last Infusion: 09/10/23 18:48 Dose: Infused Insulin Aspart (Insulin Aspart Per Unit Charge) 0 units SC ACHS [facility]; Protocol Stop: 10/05/23 20:59 Last Admin: 09/10/23 21:38 Dose: 1 units Ipratropium Orma (Ipratropium Orma Neb Soln 0.02% 0.5mg/2.5ml Vial) 0.5 mg NEB Q6H PRN PRN Reason: Shortness Of Breath Or Wheezing Stop: 10/06/23 18:59 Last Admin: 09/10/23 06:07 Dose: 0.5 mg Magnesium Hydroxide (Magnesium Hydroxide Susp 30 Ml Udc) 30 ml PO Q6H PRN PRN Reason: Constipation Stop: 10/05/23 19:30 Last Admin: 09/08/23 11:30 Dose: 30 ml Metoclopramide HCl (Metoclopramide Hcl Inj 5 Mg/Ml 2 Ml Vial) 10 mg IV Q6H PRN PRN Reason: Nausea And Vomiting Stop: 10/05/23 19:30 Metoprolol Tartrate (Metoprolol Tartrate 1 Mg/Ml Vial) 5 mg IV Q5M PRN PRN Reason: Tachycardia Stop: 10/08/23 08:56 Last Admin: 09/10/23 17:41 Dose: 5 mg Miscellaneous (Carbohydrates For Hypoglycemia ) 15 - 30 gm PO UD PRN PRN Reason: Hypoglycemia Protocol Stop: 10/05/23 14:32 Miscellaneous Information (Pharmacy Glycemic Mgmt Consult) 1 each N/A UD PRN PRN Reason: Consult Stop: 10/05/23 19:30 Multivitamins (Multivitamin Tab) 1 tab [facility] [place] Stop: 10/06/23 08:59 Last Admin: 09/10/23 07:12 Dose: 1 tab Naloxone HCl (Naloxone Hcl 0.4 Mg/1 Ml Vial/Carp) 0.4 mg IV Q5M PRN PRN Reason: oversedation/respiratory depression Stop: 10/05/23 14:31 Nitroglycerin (Nitroglycerin Sl 0.4 Mg/Tab Tab) 0.4 mg SL UD PRN PRN Reason: Chest Pain Stop: 10/05/23 19:34 Ondansetron HCl (Ondansetron Inj 2 Mg/Ml 2 Ml Vial) 4 mg IV Q6H PRN PRN Reason: Nausea And Vomiting Stop: 10/05/23 19:30 Oxycodone HCl (Oxycodone Hcl Ir 5 Mg Tab (Immediate Release)) 5 - 10 mg PO Q4H PRN PRN Reason: Pain or Pre PT Stop: 09/19/23 19:30 Last Admin: 09/08/23 12:35 Dose: 10 mg Potassium Chloride (Potassium Chloride Crtab 20 Meq Tabcr) 20 meq PO QAOK [facility] [place] Stop: 10/06/23 08:59 Last Admin: 09/10/23 08:15 Dose: 20 meq Psyllium Hydrophilic Mucilloid (Psyllium Or Guar Gum Fiber 4gm Packet) 4 gm PO QAM [facility] Stop: 10/06/23 08:59 Last Admin: 09/10/23 07:13 Dose: 4 gm Sennosides (Senna 8.6 Mg Tab) 17.2 mg PO HS [facility] Stop: 10/05/23 20:59 Last Admin: 09/10/23 21:38 Dose: 17.2 mg Tramadol HCl (Tramadol Hcl 50 Mg Tablet) 50 - 100 mg PO Q4H PRN PRN Reason: Pain & Pre PT Stop: 10/05/23 19:30 Last Admin: 09/09/23 19:44 Dose: 100 mg Umeclidinium/Vilanterol (Umeclidinium/Vilanterol 62.5/25mcg 7 Puffs/Inhaler) 1 puffs INH DAILY [facility] Stop: 10/06/23 08:59 Last Admin: 09/10/23 07:11 Dose: 1 puffs PG Care Time/CCT Total # of Minutes Spent Total Time Spent with Patient: Total time spent is greater than 50% in coordination of care (as documented) at patient's floor/unit and/or counseling patient: Coding Level of Care Code 18219 INT INP/OBS CARE 3/75MIN Diagnoses Chronic HFrEF (heart failure with reduced ejection fraction) I50.22 Atrial fibrillation I48.91 CAD (coronary artery disease) I25.10 Ischemic cardiomyopathy I25.5 ICD (implantable cardioverter-defibrillator) in place Z95.810 HTN (hypertension) I10 Mitral regurgitation I34.0 Tricuspid regurgitation I07.1 Pulmonary hypertension I27.20
[2023-09-10] MEDS: FUROSEMIDE 40 MG/4 ML VIAL IV ONE (18:16)
[2023-09-11 07:12] LABS: Basophils # (auto) 0.05 K/uL (0.00-0.20); Basophils % (auto) 0.4 %; Eosinophils # (auto) 0.08 K/uL (0.00-0.50); Eosinophils % (auto) 0.6 %; Hemoglobin 11.3 g/dl (14.0-18.0); Immature Granulocytes # (auto) 0.06 K/uL (0.01-0.20); Immature Granulocytes % (auto) 0.5 %; Lymphocytes # (auto) 3.64 K/uL (1.20-3.40); Mean Corpuscular Hemoglobin 33.3 pg (25.0-34.0); Mean Corpuscular Hgb Conc 32.3 g/dL (32.0-36.0); Mean Corpuscular Volume 103.2 fL (80.0-100.0); Mean Platelet Volume 11.1 fL (9.4-12.4); Monocytes # (auto) 0.68 K/uL (0.11-0.59); Monocytes % (auto) 5.4 %; Neutrophils # (auto) 8.04 K/uL (1.40-6.50); Neutrophils % (auto) 64.1 %; Platelet Count 277 K/uL (130-400); RDW Coefficient of Variation 16.8 % (11.5-14.5); RDW Standard Deviation 63.2 fL (36.4-46.3); Red Blood Count 3.39 M/uL (4.70-6.10); White Blood Count 12.55 K/ul (4.8-10.8)
[2023-09-11 07:29] LABS: Albumin Globulin Ratio 1.2 (0.9-2); Albumin Level 3.4 gm/dl (3.4-5.0); BUN Creatinine Ratio 26.4 (10-20); Bilirubin,Total 0.8 mg/dl (0.2-1.0); Calcium 8.4 mg/dl (8.6-10.3); Creatinine Clr Calc Pharmacy 42.8 ml/min; Est GFR (African American) 53.3 ml/min; Globulin 2.8 gm/dl (2.5-4.0); Potassium 3.4 mmol/L (3.5-5.1); Total Protein 6.2 gm/dl (6.0-8.3)
[2023-09-11] MEDS: SPIRONOLACTONE 25 MG TAB PO SCH (08:41)
[2023-09-11] MEDS: FUROSEMIDE 40 MG TAB PO SCH (08:42)
[2023-09-11] MEDS: POTASSIUM CHLORIDE CRTAB 20 MEQ TABCR PO STA (09:23)
--- NOTE | 2023-09-11 10:27 | Pharmacy Report ---
Pharmacy Glycemic Sign Off Nt - Date of Service September 11, 2023 - Assessment & Plan ASSESSMENT: * Pharmacy was consulted by Ezequiel Brown PA-C on 09/05/23 for glycemic control and to write orders per [facility] inpatient glycemic control protocol. * Major changes made by pharmacy to antidiabetic regimen include: * Addition of Jardiance and SC bolus insulin * Patient has been receiving/requiring 6-11 units of insulin per day for adequate glycemic control * BSGs ranging 101-175 mg/dl * Regimen has only required minor adjustments over the past 48hrs to achieve this level of control * Do not anticipate further changes in patient status that would quickly deteriorate glycemic control (i.e. patient to be NPO for upcoming procedure, steroids tapering, starting tube feedings, etc). PLAN FOR INPATIENT GLYCEMIC CONTROL: No changes needed to current regimen. * Hold basal insulin * Continue empagliflozin 10 mg PO daily * Continue NovoLog per scale ACHS/Q6hrs while NPO * Goal range = 110-140 mg/dl * CF = 40 mg/dl/unit * CR = 1 unit for ever 15 g CHO consumed * Pharmacy is signing off of glycemic consult and will no longer be making adjustments to inpatient regimen. Please feel free to re-consult if needed. Thank you.
--- NOTE | 2023-09-11 11:36 | Hospitalist Progress Note ---
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 Sustained fall AM 09/04 while transferring from bed to wheelchair and sustained dehiscence of RIGHT BKA wound. Dr Jordan consulted (as Dr Worrell was out of town) - s/p irrigation debridement and Closure of Right Below Knee Amputation Dehiscence.(Right) - Monico Jordan MD on 09/04. - Hemovac placed w/ surgery and removed 09/06 OR cx: prob anaerobic GPC, skin ally, yeast. Urine cx: enterococcus, coryne, prob pseudomonas BCx: no growth, finalized WBC downtrending. Does have elevated lymphocytes/hx CLL. ID consulted -continue the unasyn, through 09/10. - Stopped fluconazole. - if develops urinary sx/sepsis then treat (as well as catheter exchange given colonization) (2) Fall: Plan: Mechanical while transferring and wheelchair tipped over. No LOC/head trauma CT shoulder noted possible nondisplaced fx vs chronic fragment. Chronic noted by ortho and can consider injection for chronic rotator cuff issues but not in setting of current infection. 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 Renal function stable compared to priors/last admission and output acceptable w/ resumption of diuretics Urine cx as above however avoiding tx w/ additional abx given no urinary sx/blood cx negative and without fever but WILL NEED TO CONTINUE TO MONITOR - see ID consult (5) Chronic respiratory failure with hypoxia: Plan: pulm toilet ordered On 5L NC this morning, suspect afib and CHF contributing Titrate O2 to baseline 3L as able CXR 09/09: cardiomegaly with interval progression of the mild interstitial pulmonary edema (6) Diabetes mellitus, type 2: Plan: Jardiance initially held but resumed given for CHF (EF ~25%) Basal/bolus while inpatient with acceptable BSGs and will monitor, pharmacy consulted (7) NYLA (acute kidney injury): Plan: Patient baseline Cr seems to be around 1.6 Cr remaining stable w/ continued good urine output and lasix continued as above renal dose meds/avoid nephrotoxins AM BMP Plan Chronic stable issues: - CLL: continue heme/onc follow up - CAD: continue ASA, statin Dispo: continued inpatient stay monitoring HRs and weaning O2 DVT proh: Eliquis Admission and Anticipated Discharge Date Admission Date: September 05, 2023 Supervising Physician Co-Signing Physician Notes Attending Attestation - Chart reviewed, care plan d/w KHADIJAH Laws. I agree w/ the montilla components of her documentation. Isauro Correa MD Subjective Patient seen sitting up in bed in room 261. States that he does feel when his heart is going fast. Does not feel short of breath but doesn't feel like he is at his baseline. Reports he can tell he is holding on to fluid. moving bowels, poor appetite. concerns about going back to [facility] with the current state of his shoulder and being able to move around in his room. afib 100-140s Review of Systems Review of Systems: All systems reviewed & are unremarkable except as noted in Subjective Physical Exam Physical Exam: General: NAD, VS as above Resp: normal respiratory effort, lungs clear to auscultation - slightly diminished in the bases. On 5L CV: RRR, no murmur, Abd: normal bowel sounds, non tender, no hepatosplenomegaly Extremities: Moves all extremities, no edema Neuro: A&O x3, Skin: intact, no lesions noted Results & Data Results & Data Vital Signs (Past 12 Hours) Vital Signs Temp Pulse Pulse Resp BP BP Pulse Ox 09/11/23 09:49 97 H 09/11/23 09:46 09/11/23 09:34 150 H 09/11/23 07:44 36.7 C 100 H 18 150/74 H 95 09/11/23 07:00 102 H 09/11/23 03:51 36.4 C L 105 H 18 123/81 94 09/11/23 00:16 96 H 137/75 94 O2 Del Method O2 Flow Rate 09/11/23 09:49 09/11/23 09:46 Nasal Cannula 5 09/11/23 09:34 09/11/23 07:44 Nasal Cannula 5 09/11/23 07:00 09/11/23 03:51 Nasal Cannula 5 09/11/23 00:16 Nasal Cannula 5 Laboratory Results CBC and chemistry reviewed PG Care Time/CCT Total # of Minutes Spent Total Time Spent with Patient: Total time spent is greater than 50% in coordination of care (as documented) at patient's floor/unit and/or counseling patient: Coding Level of Care Code 03688 SUB INP/OBS CARE 3/50MIN Diagnoses Wound dehiscence T81.30XA Fall W19.XXXA Chronic HFrEF (heart failure with reduced ejection fraction) I50.22 Nephrostomy status Z93.6 Chronic respiratory failure with hypoxia J96.11 Diabetes mellitus, type 2 E11.9 NYLA (acute kidney injury) N17.9
--- NOTE | 2023-09-11 13:55 | Cardiology Progress Note ---
Date of Service September 11, 2023 Assessment & Plan (1) Chronic HFrEF (heart failure with reduced ejection fraction): (2) Atrial fibrillation: (3) CAD (coronary artery disease): (4) Ischemic cardiomyopathy: (5) ICD (implantable cardioverter-defibrillator) in place: (6) HTN (hypertension): (7) Mitral regurgitation: (8) Tricuspid regurgitation: (9) Pulmonary hypertension: Plan ASSESSMENT/PLAN: 1. Chronic heart failure with reduced EF: Was not felt to be in heart failure exacerbation on presentation but received IV fluid while here and now appears hypervolemic. Was given 40 mg of Lasix IV x 1 on 09/10/2023. Volume status improved. Spironolactone started today. Continue current dose of oral Lasix for now and if needed, can intermittently dose IV Lasix. Try to maintain net negative fluid balance. Daily weights. Strict I's and O's. Low-sodium diet, less than 2000 mg daily. Continue carvedilol and titrate as able. Angioedema to PANCHITO inhibitor and therefore no PANCHITO inhibitors, ARB, Entresto. Recommend spironolactone 25 mg once daily. Continue SGLT2 inhibitor. 2. Atrial fibrillation: Has had rapid ventricular response. Permanent atrial fibrillation. In part, may be due to his other acute issues such as wound dehiscence and being treated for infection. Recommend increasing carvedilol to 12.5 mg twice daily. Continue anticoagulation for stroke risk reduction. 3. Ischemic cardiomyopathy: Severely reduced LV systolic function based on reports. Repeat echo (interpretation pending). Prior myocardial infarction's. Continue carvedilol. On hydralazine at home and can consider adding nitrate therapy in the form of isosorbide mononitrate. No PANCHITO inhibitor/ARB/Arni due to angioedema with PANCHITO inhibitor. ICD in place. 4. ICD: Follows with electrophysiology in [place]. 5. CAD s/p CABG x 2: No angina. Continue beta-qian, high intensity statin therapy. 6. Mitral and tricuspid regurgitation: Reported as severe MR and moderate to severe TR nearly 1 year ago at outside facility. Repeat echo. Ultimately defer to his primary advertisement distributor. 7. Pulmonary hypertension: Likely multifactorial including chronic respiratory failure with hypoxia, COPD, valvular disease and heart failure. Repeat echo. 8. Hypertension: Blood pressure normotensive to mildly hypertensive today. Carvedilol titrated as above. 9. Disposition: Cardiology will continue to follow. Close follow-up with his outpatient advertisement distributor, Dr. Ortega, on discharge. Admission and Anticipated Discharge Date Admission Date: September 05, 2023 Subjective Patient seen this afternoon. Shortness of breath has improved but not yet back to baseline. He denies chest pain. He has not noted any edema. He denies palpitations, syncope, near syncope, melena, hematochezia, or hematuria. He was out of bed in a chair. Physical Exam Physical Exam: Gen.: No acute distress. Alert and oriented. HEENT: Anicteric sclera. Neck: Mild JVD. Hepatojugular reflux. Cardiac: No ventricular heave. Irregularly irregular. Normal S1-S2. No murmurs, rubs, or gallops. Pulmonary: Decreased breath sounds at the right base, but otherwise clear to auscultation bilaterally without wheezes, rales, or rhonchi. Abdomen: Soft, nontender, nondistended, with normoactive bowel sounds. No bruits noted. Extremities: 2+ radial pulses bilaterally. 2+ left posterior tibialis pulse. Right BKA. No edema or cyanosis. Psychiatric: Affect appears appropriate. Results & Data Vital Signs (Past 12 Hours) Vital Signs Temp Pulse Pulse Resp BP Pulse Ox O2 Del Method 09/11/23 11:33 36.6 C 84 18 121/79 94 Nasal Cannula 09/11/23 09:49 97 H 09/11/23 09:46 Nasal Cannula 09/11/23 09:34 150 H 09/11/23 07:44 36.7 C 100 H 18 150/74 H 95 Nasal Cannula 09/11/23 07:00 102 H 09/11/23 03:51 36.4 C L 105 H 18 123/81 94 Nasal Cannula O2 Flow Rate 09/11/23 11:33 5 09/11/23 09:49 09/11/23 09:46 5 09/11/23 09:34 09/11/23 07:44 5 09/11/23 07:00 09/11/23 03:51 5 Intake & Output 09/09/23 09/10/23 09/11/23 09/12/23 06:59 06:59 06:59 06:59 Intake Total 2125 / 2125 880 / 880 1420 / 1420 1180 / 1180 Output Total 1351 / 1351 1482 / 1482 2325 / 2325 400 / 400 Balance 774 / 774 -602 / -602 -905 / -905 780 / 780 Weight 172 lb 1.6 oz 169 lb 5.04 oz 169 lb 15.622 oz 169 lb 15.622 oz Laboratory Results Laboratory Results - last 24 hr 09/10/23 09/10/23 09/11/23 17:26 20:17 06:49 WBC 12.55 H RBC 3.39 L Hgb 11.3 L Hct 35.0 L MCV 103.2 H MCH 33.3 MCHC 32.3 RDW Std Deviation 63.2 H RDW Coeff of Sharmaine 16.8 H Plt Count 277 MPV 11.1 Immature Gran % (Auto) 0.5 Neut % (Auto) 64.1 Lymph % (Auto) 29.0 [place] % (Auto) 5.4 Eos % (Auto) 0.6 Baso % (Auto) 0.4 Neut # (Auto) 8.04 H Lymph # (Auto) 3.64 H [place] # (Auto) 0.68 H Eos # (Auto) 0.08 Baso # (Auto) 0.05 Immature Gran # (Auto) 0.06 Sodium 144 Potassium 3.4 L Chloride 105 Carbon Dioxide 31 Anion Gap 8 BUN 39 H Creatinine 1.48 H Est Cr Clr Drug Dosing 42.8 Est GFR ( Amer) 53.3 Est GFR (Non-Af Amer) 46.0 BUN/Creatinine Ratio 26.4 H Glucose 101 H POC Glucose 112 H 175 H Calcium 8.4 L Magnesium 2.0 Total Bilirubin 0.8 AST 32 ALT 25 Alkaline Phosphatase 104 Total Protein 6.2 Albumin 3.4 Globulin 2.8 Albumin/Globulin Ratio 1.2 09/11/23 11:48 WBC RBC Hgb Hct MCV MCH MCHC RDW Std Deviation RDW Coeff of Sharmaine Plt Count MPV Immature Gran % (Auto) Neut % (Auto) Lymph % (Auto) [place] % (Auto) Eos % (Auto) Baso % (Auto) Neut # (Auto) Lymph # (Auto) [place] # (Auto) Eos # (Auto) Baso # (Auto) Immature Gran # (Auto) Sodium Potassium Chloride Carbon Dioxide Anion Gap BUN Creatinine Est Cr Clr Drug Dosing Est GFR ( Amer) Est GFR (Non-Af Amer) BUN/Creatinine Ratio Glucose POC Glucose 159 H Calcium Magnesium Total Bilirubin AST ALT Alkaline Phosphatase Total Protein Albumin Globulin Albumin/Globulin Ratio Diagnostic Findings Telemetry personally reviewed: Atrial fibrillation with RVR at times. Heart rate reportedly into the 150s while out of bed in the restroom. 9 beat run of v entricular tachycardia. Labs reviewed from 09/11/2023 demonstrating stable renal function, mild anemia. Medications Administered Current Inpatient Medications Acetaminophen (Acetaminophen 500 Mg Tab) 1,000 mg PO Q8 EMILEE Stop: 10/05/23 21:59 Last Admin: 09/11/23 12:58 Dose: 1,000 mg Al Hydrox/Mg Hydrox/Simethicone (Aluminum/Magnesium Susp 30 Ml Udc) 15 ml PO Q4H PRN PRN Reason: Heartburn Stop: 10/05/23 19:30 Apixaban (Apixaban 5 Mg Tablet) 5 mg PO BID EMILEE Stop: 10/06/23 08:59 Last Admin: 09/11/23 08:45 Dose: 5 mg Aspirin (Aspirin 81 Mg Ectab) 81 mg PO QAM EMILEE Stop: 10/06/23 08:59 Last Admin: 09/11/23 08:44 Dose: 81 mg Atorvastatin Calcium (Atorvastatin 40 Mg Tab) 40 mg PO PM EMILEE Stop: 10/05/23 20:59 Last Admin: 09/10/23 21:35 Dose: 40 mg Bisacodyl (Bisacodyl 10 Mg Supp) 10 mg VT DAILY PRN PRN Reason: Constipation Stop: 10/05/23 19:30 Last Admin: 09/08/23 12:40 Dose: 10 mg Calcium Carbonate (Calcium Carbonate 1250mg Tab) 1 tab PO QAM EMILEE Stop: 10/06/23 08:59 Last Admin: 09/11/23 08:43 Dose: 1 tab Carvedilol (Carvedilol 6.25 Mg Tab) 6.25 mg PO BIDM [facility] Stop: 10/09/23 16:59 Last Admin: 09/11/23 08:45 Dose: 6.25 mg Cyanocobalamin (Cyanocobalamin (B-12) 500 Mcg Tablet) 1,000 mcg PO QAM [facility] Stop: 10/06/23 08:59 Last Admin: 09/11/23 08:42 Dose: 1,000 mcg Dextrose (Dextrose 50% 50 Ml Syringe) 25 - 50 ml IV UD PRN; Protocol PRN Reason: Hypoglycemia Protocol Stop: 10/05/23 14:32 Diclofenac Sodium (Diclofenac Sod 1% Gel 100 Gm Tube) 4 gm EXT TID EMILEE; Protoc ol Stop: 10/06/23 10:59 Last Admin: 09/11/23 12:58 Dose: 4 gm Dimenhydrinate (Dimenhydrinate 50 Mg Tab) 50 mg PO Q8H PRN PRN Reason: Nausea Stop: 10/05/23 19:34 Docusate Sodium (Docusate Sodium 100 Mg Cap) 100 mg PO BID EMILEE Stop: 10/05/23 20:59 Last Admin: 09/11/23 08:44 Dose: 100 mg Empagliflozin (Empagliflozin 10 Mg Tab) 10 mg PO DAILY EMILEE Stop: 10/07/23 08:59 Last Admin: 09/11/23 08:44 Dose: 10 mg Ferrous Sulfate (Ferrous Sulfate 325 Mg Tab) 325 mg PO QAM EMILEE Stop: 10/06/23 08:59 Last Admin: 09/11/23 08:42 Dose: 325 mg Fluticasone Furoate (Fluticasone Furoate 200mcg 14 Puffs/Inhaler) 1 puffs INH DAILY EMILEE Stop: 10/06/23 08:59 Last Admin: 09/11/23 08:46 Dose: 1 puffs Furosemide (Furosemide 40 Mg Tab) 40 mg PO BID17 EMILEE Stop: 10/11/23 08:59 Last Admin: 09/11/23 08:42 Dose: 40 mg Glucagon (Glucagon For Inj 1 Mg Vial) 1 mg SQ UD PRN; Protocol PRN Reason: Hypoglycemia Protocol Stop: 10/05/23 14:32 Glucose (Glucose 40% Gel 15 Gm Tube) 15 - 30 gm PO UD PRN; Protocol PRN Reason: Hypoglycemia Protocol Stop: 10/05/23 14:32 Glucose (Glucose 10 Tab/Tube) 4 - 8 tab PO UD PRN; Protocol PRN Reason: Hypoglycemia Treatment Stop: 10/05/23 14:32 Hydralazine HCl (Hydralazine Hcl 25 Mg Tab) 25 mg PO TID EMILEE Stop: 10/05/23 20:59 Last Admin: 09/11/23 12:58 Dose: 25 mg Ampicillin Sodium/Sulbactam Sodium 3,000 mg/ Sodium Chloride 100 mls @ 200 ml s/hr IV Q6H [facility] Stop: 09/11/23 23:59 Last Infusion: 09/11/23 13:00 Dose: Infused Insulin Aspart (Insulin Aspart Per Unit Charge) 0 units SC [facility]; Protocol Stop: 10/05/23 20:59 Last Admin: 09/11/23 12:56 Dose: 7 units Ipratropium [place] (Ipratropium [place] Neb Soln 0.02% 0.5mg/2.5ml Vial) 0.5 mg NEB Q6H PRN PRN Reason: Shortness Of Breath Or Wheezing Stop: 10/06/23 18:59 Last Admin: 09/10/23 06:07 Dose: 0.5 mg Magnesium Hydroxide (Magnesium Hydroxide Susp 30 Ml Udc) 30 ml PO Q6H PRN PRN Reason: Constipation Stop: 10/05/23 19:30 Last Admin: 09/08/23 11:30 Dose: 30 ml Metoprolol Tartrate (Metoprolol Tartrate 1 Mg/Ml Vial) 5 mg IV Q5M PRN PRN Reason: Tachycardia Stop: 10/08/23 08:56 Last Admin: 09/11/23 09:34 Dose: 5 mg Miscellaneous (Carbohydrates For Hypoglycemia ) 15 - 30 gm PO UD PRN PRN Reason: Hypoglycemia Protocol Stop: 10/05/23 14:32 Multivitamins (Multivitamin Tab) 1 tab PO QAM EMILEE Stop: 10/06/23 08:59 Last Admin: 09/11/23 08:44 Dose: 1 tab Naloxone HCl (Naloxone Hcl 0.4 Mg/1 Ml Vial/Carp) 0.4 mg IV Q5M PRN PRN Reason: oversedation/respiratory depression Stop: 10/05/23 14:31 Nitroglycerin (Nitroglycerin Sl 0.4 Mg/Tab Tab) 0.4 mg SL UD PRN PRN Reason: Chest Pain Stop: 10/05/23 19:34 Ondansetron HCl (Ondansetron Inj 2 Mg/Ml 2 Ml Vial) 4 mg IV Q6H PRN PRN Reason: Nausea And Vomiting Stop: 10/05/23 19:30 Oxycodone HCl (Oxycodone Hcl Ir 5 Mg Tab (Immediate Release)) 5 - 10 mg PO Q4H PRN PRN Reason: Pain or Pre PT Stop: 09/19/23 19:30 Last Admin: 09/11/23 09:19 Dose: 10 mg Potassium Chloride (Potassium Chloride Crtab 20 Meq Tabcr) 20 meq PO QAM EMILEE Stop: 10/06/23 08:59 Last Admin: 09/11/23 08:43 Dose: 20 meq Psyllium Hydrophilic Mucilloid (Psyllium Or Guar Gum Fiber 4gm Packet) 4 gm PO QAM EMILEE Stop: 10/06/23 08:59 Last Admin: 09/11/23 08:46 Dose: 4 gm Sennosides (Senna 8.6 Mg Tab) 17.2 mg PO HS EMILEE Stop: 10/05/23 20:59 Last Admin: 09/10/23 21:38 Dose: 17.2 mg Spironolactone (Spironolactone 25 Mg Tab) 25 mg PO QAM EMILEE Stop: 10/11/23 08:59 Last Admin: 09/11/23 08:41 Dose: 25 mg Tramadol HCl (Tramadol Hcl 50 Mg Tablet) 50 - 100 mg PO Q4H PRN PRN Reason: Pain & Pre PT Stop: 10/05/23 19:30 Last Admin: 09/09/23 19:44 Dose: 100 mg Umeclidinium/Vilanterol (Umeclidinium/Vilanterol 62.5/25mcg 7 Puffs/Inhaler) 1 puffs INH DAILY EMILEE Stop: 10/06/23 08:59 Last Admin: 09/11/23 08:46 Dose: 1 puffs PG Care Time/CCT Total # of Minutes Spent Total Time Spent with Patient: Total time spent is greater than 50% in coordination of care (as documented) at patient's floor/unit and/or counseling patient: Coding Level of Care Code 57539 SUB INP/OBS CARE 3/50MIN Diagnoses Chronic HFrEF (heart failure with reduced ejection fraction) I50.22 Atrial fibrillation I48.91 CAD (coronary artery disease) I25.10 Ischemic cardiomyopathy I25.5 ICD (implantable cardioverter-defibrillator) in place Z95.810 HTN (hypertension) I10 Mitral regurgitation I34.0 Tricuspid regurgitation I07.1 Pulmonary hypertension I27.20
[2023-09-11] MEDS: carvediloL 12.5 MG TAB PO SCH (16:49)
--- NOTE | 2023-09-12 00:56 | XCELERA ---
[id number] [id number]
--- NOTE | 2023-09-12 09:06 | Cardiology Progress Note ---
Date of Service September 12, 2023 Assessment & Plan (1) Chronic HFrEF (heart failure with reduced ejection fraction): (2) Atrial fibrillation: (3) CAD (coronary artery disease): (4) Ischemic cardiomyopathy: (5) ICD (implantable cardioverter-defibrillator) in place: (6) HTN (hypertension): (7) Mitral regurgitation: (8) Tricuspid regurgitation: (9) Pulmonary hypertension: (10) Paroxysmal ventricular tachycardia: Plan ASSESSMENT/PLAN: 1. Chronic heart failure with reduced EF: Was not felt to be in heart failure exacerbation on presentation but received IV fluid while here and now appears hypervolemic. Was given 40 mg of Lasix IV x 1 on 09/10/2023. Volume status impro kem. Does not appear to be significantly hypervolemic currently. Spironolactone started 09/11/23. Continue current dose of oral Lasix for now and if needed, can intermittently dose IV Lasix. Try to maintain net negative fluid balance. Daily weights. Strict I's and O's. Low-sodium diet, less than 2000 mg daily. Continue carvedilol and titrate as able. Angioedema to PANCHITO inhibitor and therefore no PANCHITO inhibitors, ARB, Entresto. Recommend spironolactone 25 mg once daily. Continue SGLT2 inhibitor. 2. Atrial fibrillation: Permanent atrial fibrillation. Has had rapid ventricular response. Overall, heart rate reasonable. In part, may be due to his other acute issues such as wound dehiscence and being treated for infection. Carvedilol has been titrated up to 12.5 mg twice daily from 3.125 mg twice daily. Continue current dose for now. Can be further titrated if necessary. Continue anticoagulation for stroke risk reduction. 3. Ischemic cardiomyopathy: Severely reduced LV systolic function. Prior myocardial infarction's. Continue carvedilol. On hydralazine at home and can consider adding nitrate therapy in the form of isosorbide mononitrate. No PANCHITO inhibitor/ARB/Arni due to angioedema with PANCHITO inhibitor. ICD in place. 4. ICD: Follows with electrophysiology in [place]. 5. CAD s/p CABG x 2: No angina. Continue beta-qian, high intensity statin therapy. 6. Mitral and tricuspid regurgitation: Nonsevere. Can be monitored in the outpatient setting by his primary care urologist. 7. Pulmonary hypertension: Likely multifactorial including chronic respiratory failure with hypoxia, COPD, and heart failure. Volume status improved. 8. Hypertension: Blood pressure normotensive today. Continue current regimen. 9. Nonsustained ventricular tachycardia: At risk for ventricular arrhythmia given severely reduced LV systolic function. Continue beta-qian, which was titrated. ICD in place. Seems to be asymptomatic. 10. Disposition: Please call with questions or concerns. Patient care communicated with primary hospitalist service, Michelle Laws. Close follow- up with his outpatient beef selector, Dr. Ortega, on discharge. Admission and Anticipated Discharge Date Admission Date: September 05, 2023 Subjective Patient seen this morning. Breathing continues to improve and is near baseline. He denies chest pain, syncope, near syncope. Has occasional palpitations. Denies melena, hematochezia, or hematuria. He was unaccompanied. Physical Exam Physical Exam: Gen.: No acute distress. Alert and oriented. HEENT: Anicteric sclera. Neck: No significant JVD. Hepatojugular reflux. Cardiac: No ventricular heave. Irregularly irregular with normal heart rate. Normal S1-S2. 1/6 systolic murmur. Pulmonary: Decreased breath sounds at the right base, but otherwise clear to auscultation bilaterally without wheezes, rales, or rhonchi. Abdomen: Soft, nontender, nondistended, with normoactive bowel sounds. No bruits noted. Extremities: 2+ radial pulses bilaterally. 2+ left posterior tibialis pulse. Right BKA. No edema or cyanosis. Psychiatric: Affect appears appropriate. Results & Data Vital Signs (Past 12 Hours) Vital Signs Temp Pulse Pulse Resp BP Pulse Ox Pulse Ox 09/12/23 08:00 09/12/23 07:34 36.6 C 120 H 18 136/81 95 09/12/23 07:00 105 H 09/12/23 03:46 36.3 C L 110 H 16 112/73 97 09/11/23 23:11 36.3 C L 92 H 16 102/54 L 95 09/11/23 22:33 09/11/23 21:23 95 O2 Del Method O2 Del Method O2 Flow Rate O2 Flow Rate 09/12/23 08:00 Nasal Cannula 5 09/12/23 07:34 Nasal Cannula 5 09/12/23 07:00 09/12/23 03:46 Nasal Cannula 5 09/11/23 23:11 Nasal Cannula 5 09/11/23 22:33 Nasal Cannula 5 09/11/23 21:23 Nasal Cannula 5 Intake & Output 09/10/23 09/11/23 09/12/23 09/13/23 06:59 06:59 06:59 06:59 Intake Total 880 / 880 1420 / 1420 1670 / 1670 Output Total 1482 / 1482 2325 / 2325 1740 / 1740 Balance -602 / -602 -905 / -905 -70 / -70 Weight 169 lb 5.04 oz 169 lb 15.622 oz 167 lb 3.177 oz Laboratory Results Laboratory Results - last 24 hr 09/11/23 09/11/23 09/11/23 11:48 16:54 20:26 Sodium Potassium Chloride Carbon Dioxide Anion Gap BUN Creatinine Est Cr Clr Drug Dosing Est GFR ( Amer) Est GFR (Non-Af Amer) BUN/Creatinine Ratio Glucose POC Glucose 159 H 138 H 155 H Calcium 09/12/23 09/12/23 08:03 08:33 Sodium 142 Potassium 4.1 D Chloride 104 Carbon Dioxide 30 Anion Gap 8 BUN 44 H Creatinine 1.63 H Est Cr Clr Drug Dosing 35.9 Est GFR ( Amer) 47.4 Est GFR (Non-Af Amer) 40.9 BUN/Creatinine Ratio 27.0 H Glucose 119 H POC Glucose 126 H Calcium 8.6 Diagnostic Findings Labs reviewed and notable for stable renal function compared to baseline, normal potassium. Telemetry personally reviewed and notable for atrial fibrillation with sometimes mild rapid ventricular response. 30 beat run of ventricular tachycardia. Echo 09/11/2023: Mildly dilated LV. EF 20 to 25%. Akinesis of the inferolateral, basal inferoseptal, and basal to mid inferior wall segments. Otherwise, global hypokinesis. Moderate LVH. Borderline dilated RV with moderately reduced systolic function. Moderate left and mild right atrial dilation. Mild AI. Moderate MR. Moderate TR. RVSP 62. Medications Administered Current Inpatient Medications Acetaminophen (Acetaminophen 500 Mg Tab) 1,000 mg PO Q8 EMILEE Stop: 10/05/23 21:59 Last Admin: 09/12/23 05:52 Dose: 1,000 mg Al Hydrox/Mg Hydrox/Simethicone (Aluminum/Magnesium Susp 30 Ml Udc) 15 ml PO Q4H PRN PRN Reason: Heartburn Stop: 10/05/23 19:30 Apixaban (Apixaban 5 Mg Tablet) 5 mg PO BID [facility] Stop: 10/06/23 08:59 Last Admin: 09/12/23 08:17 Dose: 5 mg Aspirin (Aspirin 81 Mg Ectab) 81 mg PO QAM [facility] Stop: 10/06/23 08:59 Last Admin: 09/12/23 08:16 Dose: 81 mg Atorvastatin Calcium (Atorvastatin 40 Mg Tab) 40 mg PO PM [facility] Stop: 10/05/23 20:59 Last Admin: 09/11/23 20:44 Dose: 40 mg Bisacodyl (Bisacodyl 10 Mg Supp) 10 mg AL DAILY PRN PRN Reason: Constipation Stop: 10/05/23 19:30 Last Admin: 09/08/23 12:40 Dose: 10 mg Calcium Carbonate (Calcium Carbonate 1250mg Tab) 1 tab PO QAM [facility] Stop: 10/06/23 08:59 Last Admin: 09/12/23 08:16 Dose: 1 tab Carvedilol (Carvedilol 12.5 Mg Tab) 12.5 mg PO BIDM [facility] Stop: 10/11/23 16:59 Last Admin: 09/12/23 08:17 Dose: 12.5 mg Cyanocobalamin (Cyanocobalamin (B-12) 500 Mcg Tablet) 1,000 mcg PO QAM [facility] Stop: 10/06/23 08:59 Last Admin: 09/12/23 08:16 Dose: 1,000 mcg Dextrose (Dextrose 50% 50 Ml Syringe) 25 - 50 ml IV UD PRN; Protocol PRN Reason: Hypoglycemia Protocol Stop: 10/05/23 14:32 Diclofenac Sodium (Diclofenac Sod 1% Gel 100 Gm Tube) 4 gm EXT TID [facility]; Protocol Stop: 10/06/23 10:59 Last Admin: 09/12/23 08:18 Dose: 4 gm Dimenhydrinate (Dimenhydrinate 50 Mg Tab) 50 mg PO Q8H PRN PRN Reason: Nausea Stop: 10/05/23 19:34 Docusate Sodium (Docusate Sodium 100 Mg Cap) 100 mg PO BID [facility] Stop: 10/05/23 20:59 Last Admin: 09/12/23 08:14 Dose: 100 mg Empagliflozin (Empagliflozin 10 Mg Tab) 10 mg PO DAILY [facility] Stop: 10/07/23 08:59 Last Admin: 09/12/23 08:15 Dose: 10 mg Ferrous Sulfate (Ferrous Sulfate 325 Mg Tab) 325 mg PO QAM [facility] Stop: 10/06/23 08:59 Last Admin: 09/12/23 08:15 Dose: 325 mg Fluticasone Furoate (Fluticasone Furoate 200mcg 14 Puffs/Inhaler) 1 puffs INH DAILY [facility] Stop: 10/06/23 08:59 Last Admin: 09/12/23 08:18 Dose: 1 puffs Furosemide (Furosemide 40 Mg Tab) 40 mg PO BID17 E[facility]LEE Stop: 10/11/23 08:59 Last Admin: 09/12/23 08:14 Dose: 40 mg Glucagon (Glucagon For Inj 1 Mg Vial) 1 mg SQ UD PRN; Protocol PRN Reason: Hypoglycemia Protocol Stop: 10/05/23 14:32 Glucose (Glucose 40% Gel 15 Gm Tube) 15 - 30 gm PO UD PRN; Protocol PRN Reason: Hypoglycemia Protocol Stop: 10/05/23 14:32 Glucose (Glucose 10 Tab/Tube) 4 - 8 tab PO UD PRN; Protocol PRN Reason: Hypoglycemia Treatment Stop: 10/05/23 14:32 Hydralazine HCl (Hydralazine Hcl 25 Mg Tab) 25 mg PO TID [facility] Stop: 10/05/23 20:59 Last Admin: 09/12/23 08:17 Dose: 25 mg Insulin Aspart (Insulin Aspart Per Unit Charge) 0 units SC ACHS [facility]; Protocol Stop: 10/05/23 20:59 Last Admin: 09/11/23 20:49 Dose: 1 units Ipratropium [place] (Ipratropium [place] Neb Soln 0.02% 0.5mg/2.5ml Vial) 0.5 mg NEB Q6H PRN PRN Reason: Shortness Of Breath Or Wheezing Stop: 10/06/23 18:59 Last Admin: 09/10/23 06:07 Dose: 0.5 mg Magnesium Hydroxide (Magnesium Hydroxide Susp 30 Ml Udc) 30 ml PO Q6H PRN PRN Reason: Constipation Stop: 10/05/23 19:30 Last Admin: 09/08/23 11:30 Dose: 30 ml Metoprolol Tartrate (Metoprolol Tartrate 1 Mg/Ml Vial) 5 mg IV Q5M PRN PRN Reason: Tachycardia Stop: 10/08/23 08:56 Last Admin: 09/11/23 09:34 Dose: 5 mg Miscellaneous (Carbohydrates For Hypoglycemia ) 15 - 30 gm PO UD PRN PRN Reason: Hypoglycemia Protocol Stop: 10/05/23 14:32 Multivitamins (Multivitamin Tab) 1 tab PO QAM [facility] Stop: 10/06/23 08:59 Last Admin: 09/12/23 08:15 Dose: 1 tab Naloxone HCl (Naloxone Hcl 0.4 Mg/1 Ml Vial/Carp) 0.4 mg IV Q5M PRN PRN Reason: oversedation/respiratory depression Stop: 10/05/23 14:31 Nitroglycerin (Nitroglycerin Sl 0.4 Mg/Tab Tab) 0.4 mg SL UD PRN PRN Reason: Chest Pain Stop: 10/05/23 19:34 Ondansetron HCl (Ondansetron Inj 2 Mg/Ml 2 Ml Vial) 4 mg IV Q6H PRN PRN Reason: Nausea And Vomiting Stop: 10/05/23 19:30 Oxycodone HCl (Oxycodone Hcl Ir 5 Mg Tab (Immediate Release)) 5 - 10 mg PO Q4H PRN PRN Reason: Pain or Pre PT Stop: 09/19/23 19:30 Last Admin: 09/11/23 09:19 Dose: 10 mg Potassium Chloride (Potassium Chloride Crtab 20 Meq Tabcr) 20 meq PO QAM [facility] Stop: 10/06/23 08:59 Last Admin: 09/12/23 08:16 Dose: 20 meq Psyllium Hydrophilic Mucilloid (Psyllium Or Guar Gum Fiber 4gm Packet) 4 gm PO QAM [facility] Stop: 10/06/23 08:59 Last Admin: 09/12/23 08:18 Dose: 4 gm Sennosides (Senna 8.6 Mg Tab) 17.2 mg PO HS [facility] Stop: 10/05/23 20:59 Last Admin: 09/11/23 20:44 Dose: 17.2 mg Spironolactone (Spironolactone 25 Mg Tab) 25 mg PO QAM [facility] Stop: 10/11/23 08:59 Last Admin: 09/12/23 08:15 Dose: 25 mg Tramadol HCl (Tramadol Hcl 50 Mg Tablet) 50 - 100 mg PO Q4H PRN PRN Reason: Pain & Pre PT Stop: 10/05/23 19:30 Last Admin: 09/09/23 19:44 Dose: 100 mg Umeclidinium/Vilanterol (Umeclidinium/Vilanterol 62.5/25mcg 7 Puffs/Inhaler) 1 puffs INH DAILY [facility]MILE[facility] Stop: 10/06/23 08:59 Last Admin: 09/12/23 08:18 Dose: 1 puffs PG Care Time/CCT Total # of Minutes Spent Total Time Spent with Patient: Total time spent is greater than 50% in coordination of care (as documented) at patient's floor/unit and/or counseling patient: Coding Level of Care Code 06008 SUB INP/OBS CARE 3/50MIN Diagnoses Chronic HFrEF (heart failure with reduced ejection fraction) I50.22 Atrial fibrillation I48.91 CAD (coronary artery disease) I25.10 Ischemic cardiomyopathy I25.5 ICD (implantable cardioverter-defibrillator) in place Z95.810 HTN (hypertension) I10 Mitral regurgitation I34.0 Tricuspid regurgitation I07.1 Pulmonary hypertension I27.20 Paroxysmal ventricular tachycardia I47.29
[2023-09-12 09:10] LABS: Calcium 8.6 mg/dl (8.6-10.3); Creatinine Clr Calc Pharmacy 35.9 ml/min; Est GFR (African American) 47.4 ml/min; Est GFR (Non-African American) 40.9 ml/min; Potassium 4.1 mmol/L (3.5-5.1)
--- NOTE | 2023-09-12 13:58 | Infectious Disease Progress Nt ---
Date of Service September 12, 2023 Assessment & Plan (1) Wound dehiscence: (2) CKD (chronic kidney disease) stage 3, GFR 30-59 ml/min: (3) Peripheral arterial disease: (4) Diabetes mellitus, type 2: Plan 73yo M with h/o afib, chronic respiratory failure on 3L NC, CAD s/p CABG, ICM s/p ICD in 2021, CKD III, CLL, bladder cancer s/p multiple TURBT, s/p left nephrostomy 06/25/23, T2DM, severe PVD, recent admissions in 07/2023 including for RLE cellulitis s/p CTX>cefadroxil and then recurrent RLE cellulitis/gangrene s/p BKA on 07/25 and vanc/cefepime who presented from rehab on 09/04 with right BKA site dehiscence and right shoulder pain after sustaining a mechanical fall. He had some redness of the incision site prior and was getting Levaquin for a few days. Here, he was afebrile, vss. WBC 11.51, Cr 1.30, LFT wnl. UA checked 09/06 had 21-50 WBC. XR right shoulder neg. XR R knee neg for fracture. CXR with prominent pulmonary vasculature. CT R shoulder with bony fracture. Found with R BKA dehiscence and seen by ortho who noted open area of stump with tibial exposure. S/p OR 09/04 and underwent I+D of right BKA site (per op note, marginal eschar noted, mildly necrotic skin and deeper tissue around area of incision, fibrinous exudate debrided, bone spicules debrided). Of note, also seen by urology, no intervention. He has been getting Unasyn and fluconazole. ID consulted on 09/09. Now off abx, remains afebrile. No fevers off of abx. # Wound dehiscence of R BKA 2/2 trauma surgical management w/in 6hrs, s/p 7d of abx # Pyuria in setting of nephrostomy asymptomatic, no tx # h/o CLL # h/o bladder cancer s/p prior TURBT - s/p abx - monitor for urinary sx/sepsis if present then would pursue treatment for UTI and further management of nephrostomy at that time as well as assess R BKA site for any worsening - management of BKA per surgery and primary team ID will discontinue active follow up at this time. Please do not hesitate to reconsult the Infectious Diseases service as needed. Anna Hernández MD [facility], Division of Infectious Diseases IDConnect: [phone] Admission and Anticipated Discharge Date Admission Date: September 05, 2023 Subjective This patient recommendation is based on a telemedicine consult request which was completed asynchronously through chart review and information provided by the primary physician. The patient was not seen or examined today. The evaluation is consultative in nature and all patient care and treatment decisions can either be accepted or rejected by the patient's primary hospital-based treating physician using their own independent medical judgment for their patient. Time Spent Reviewing Chart: 31+ minutes Results & Data Vital Signs (Past 12 Hours) Vital Signs Temp Pulse Pulse Resp BP Pulse Ox O2 Del Method 09/12/23 11:34 36.3 C L 92 H 18 131/67 95 Nasal Cannula 09/12/23 08:00 Nasal Cannula 09/12/23 07:34 36.6 C 120 H 18 136/81 95 Nasal Cannula 09/12/23 07:00 105 H 09/12/23 03:46 36.3 C L 110 H 16 112/73 97 Nasal Cannula O2 Flow Rate 09/12/23 11:34 5 09/12/23 08:00 5 09/12/23 07:34 5 09/12/23 07:00 09/12/23 03:46 5
--- NOTE | 2023-09-12 14:08 | Hospitalist Progress Note ---
Date of Service September 12, 2023 Assessment & Plan (1) Wound dehiscence: Plan: s/p right BKA with Dr. Worrell on 07/26/23 for recurrent right diabetic foot infections, had been on Levaquin for possible infection at surgical site prior to admission. Sustained fall AM 09/04 while transferring from bed to wheelchair and sustained dehiscence of RIGHT BKA wound. Dr Jordan consulted (as Dr Worrell was out of town) - s/p irrigation debridement and Closure of Right Below Knee Amputation Dehiscence.(Right) - Monico Jordan MD on 09/04. - Hemovac placed w/ surgery and removed 09/06 OR cx: prob anaerobic GPC, skin ally, yeast. Urine cx: enterococcus, coryne, prob pseudomonas BCx: no growth, finalized WBC downtrending. Does have elevated lymphocytes/hx CLL. ID consulted -continue the unasyn, through 09/10. - Stopped fluconazole. - if develops urinary sx/sepsis then treat (as well as catheter exchange given colonization) (2) Fall: Plan: Mechanical while transferring and wheelchair tipped over. No LOC/head trauma CT shoulder noted possible nondisplaced fx vs chronic fragment. Chronic noted by ortho and can consider injection for chronic rotator cuff issues but not in setting of current infection. Sling/pain control/therapy evals CM following - continue rehab at discharge (3) Chronic HFrEF (heart failure with reduced ejection fraction): Plan: ALSO with Afib - with elevated rates, required IV metoprolol this AM Previously appeared dry and lasix placed on hold and given 2L IVF Cardiology following - carvidelol increased to 12.5mg BID - continue PO lasix - spironolactone 25mg daily added Echo: EF 20-25%, akinesis of inferolaterla, baseal inferoseptal and basal wall segments. Global hypokenesis. Severe pulmonary HTN. 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 Renal function stable compared to priors/last admission and output acceptable w/ resumption of diuretics Urine cx as above however avoiding tx w/ additional abx given no urinary sx/blood cx negative and without fever but WILL NEED TO CONTINUE TO MONITOR - see ID consult (5) Chronic respiratory failure with hypoxia: Plan: pulm toilet ordered and patient has been using On 5L NC, suspect afib and CHF contributing Titrate O2 to baseline 3L as able CXR 09/09: cardiomegaly with interval progression of the mild interstitial pulmonary edema (6) Diabetes mellitus, type 2: Plan: Jardiance initially held but resumed given for CHF (EF ~25%) Basal/bolus while inpatient with acceptable BSGs and will monitor, pharmacy consulted (7) NYLA (acute kidney injury): Plan: Patient baseline Cr seems to be around 1.6 Cr remaining stable w/ continued good urine output and lasix continued as above renal dose meds/avoid nephrotoxins AM BMP Plan Chronic stable issues: - CLL: continue heme/onc follow up - CAD: continue ASA, statin Dispo: continued inpatient stay monitoring HRs and weaning O2 DVT proh: Eliquis Admission and Anticipated Discharge Date Admission Date: September 05, 2023 Supervising Physician Co-Signing Physician Notes Attending Attestation - Chart reviewed, care plan d/w KHADIJAH Laws. I agree w/ the montilla components of her documentation. Isauro Correa MD Subjective Patient seen sitting up in the chair this afternoon, appears much better today. Reports that he is felling better and able to better with transfer and walked in the hallway. Denies fevers, chills, back or bladder pain. Does have some aches in the right shoulder Asymptomatic during run of v-tach today AFib 100-110s Review of Systems Review of Systems: All systems reviewed & are unremarkable except as noted in Subjective Physical Exam Physical Exam: General: NAD, VS as above, appears better than prior days Resp: normal respiratory effort, lungs clear to auscultation - slightly diminished in the bases. On 5L CV: RRR, no murmur, Abd: normal bowel sounds, non tender, no hepatosplenomegaly Extremities: Moves all extremities, no edema Neuro: A&O x3, Skin: intact, no lesions noted Results & Data Results & Data Vital Signs (Past 12 Hours) Vital Signs Temp Pulse Pulse Resp BP Pulse Ox O2 Del Method 09/12/23 11:34 36.3 C L 92 H 18 131/67 95 Nasal Cannula 09/12/23 08:00 Nasal Cannula 09/12/23 07:34 36.6 C 120 H 18 136/81 95 Nasal Cannula 09/12/23 07:00 105 H 09/12/23 03:46 36.3 C L 110 H 16 112/73 97 Nasal Cannula O2 Flow Rate 09/12/23 11:34 5 09/12/23 08:00 5 09/12/23 07:34 5 09/12/23 07:00 09/12/23 03:46 5 Laboratory Results BMP reviewed PG Care Time/CCT Total # of Minutes Spent Total Time Spent with Patient: Total time spent is greater than 50% in coordination of care (as documented) at patient's floor/unit and/or counseling patient: Coding Level of Care Code 06542 SUB INP/OBS CARE 3/50MIN Diagnoses Wound dehiscence T81.30XA Fall W19.XXXA Chronic HFrEF (heart failure with reduced ejection fraction) I50.22 Nephrostomy status Z93.6 Chronic respiratory failure with hypoxia J96.11 Diabetes mellitus, type 2 E11.9 NYLA (acute kidney injury) N17.9
[2023-09-13 04:55] LABS: BUN Creatinine Ratio 33.9 (10-20); Calcium 8.6 mg/dl (8.6-10.3); Est GFR (African American) 64.1 ml/min; Est GFR (Non-African American) 55.3 ml/min; Potassium 3.7 mmol/L (3.5-5.1)
[2023-09-13 05:44] LABS: Troponin I High Sensitivity 53.7 pg/ml (0-20)
[2023-09-13] MEDS: carvediloL 12.5 MG TAB PO ONE (11:32)
--- NOTE | 2023-09-13 11:42 | Discharge Summary ---
Discharge Summary Date of Service September 13, 2023 Principal Dx & Hospital Course #1 = Principal Diagnosis (1) Wound dehiscence: s/p right BKA with Dr. Worrell on 07/26/23 for recurrent right diabetic foot infections, had been on Levaquin for possible infection at surgical site prior to admission. Sustained fall AM 09/04 while transferring from bed to wheelchair and sustained dehiscence of RIGHT BKA wound. Dr Jordan consulted (as Dr oWrrell was out of town) - s/p irrigation debridement and Closure of Right Below Knee Amputation Dehiscence.(Right) - Monico Jordan MD on 09/04. - Hemovac placed w/ surgery and removed 09/06 OR cx: prob anaerobic GPC, skin ally, yeast. Urine cx: enterococcus, coryne, prob pseudomonas BCx: no growth, finalized ID consulted - Received Unasyn, through 09/10. - Stopped fluconazole. - if develops urinary sx/sepsis then treat (as well as catheter exchange given colonization) (2) Fall: Mechanical while transferring and wheelchair tipped over. No LOC/head trauma CT shoulder noted possible nondisplaced fx vs chronic fragment. Chronic noted by ortho and can consider injection for chronic rotator cuff issues but not in setting of current infection. use sling. Voltaren/Tylenol/tramadol for pain CM following - continue rehab at discharge (3) Chronic HFrEF (heart failure with reduced ejection fraction): ALSO with Afib - with elevated rates Previously appeared dry and lasix placed on hold and given 2L IVF, but now euvolemic maintained on PO lasix 40mg BID Cardiology following - carvedilol increased to 25mg BID - continue PO lasix 40mg BID - spironolactone 25mg daily added - continue with Jardiance Echo: EF 20-25%, akinesis of inferolaterla, baseal inferoseptal and basal wall segments. Global hypokenesis. Severe pulmonary HTN. 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 Gaviria, cardiology Notes For Next Care Provider patient admitted after fall resulting in wound dehiscence and right shoulder pain. No acute injury to right shouldercan follow-up with orthopedics if would want steroid injection. Taken to the OR for wound dehiscence, completed course of Unasyn while inpatient. Also with difficulty with heart rate control and increased oxygen needscarvedilol increased, started on spironolactone. Will need close follow- up with primary receiving teller Medication Changes From Visit added spironolactone Added Voltaren gel Increase carvedilol to 25 mg twice daily Can add senna and Colace for continued bowel regimen Admission HPI Per Admitting Provider Michael is a 73 year old male with a PMH significant for recurrent right foot infections S/P right BKA on 07/26/[address] Worrell, atrial fibrillation (on Eliquis), chronic respiratory failure on 3L NC at all times, Nephrostomy status, CAD, ischemic cardiomyopathy S/P ICD placement in 2021, CLL, bladder carcinoma, DMII, and PAD who presented to the [facility] [place] ED via EMS on 09/05/23 due to right BKA site dehiscence and right shoulder pain after sustaining a fall at home. The patient reportedly was trying to transfer from his bed to a chair when he slipped and fell to the floor. He was noted to be tachycardic with a HR of 102 but otherwise stable on arrival. Labs were significant for an improving leukocytosis of 11, down from 18 as of 07/31/23 and were otherwise unremarkable. Xrays of the right knee and shoulder were negative for acute findings. Prior to admission the patient was given a dose of Cefazolin and 6 mg IV morphine. At the time of the exam the patient was sitting in bed in no acute distress. He states that he has been residing at [facility] since his BKA last month. This am he was trying to get into his wheelchair from his bed. He states that the wheels of his chair locked, causing the chair to tip over and him to fall to the ground. He landed on his right side, he did not hit his head or lose consciousness. His only pain since the fall is in his right shoulder and right BKA site. He notes that he had a previous injury to his right rotator cuff, but he currently has much less mobility in the right shoulder after his fall compared to his baseline due to pain. He did have all his am meds, including his am dose of Eliquis. Denies headache, changes in vision, hearing, taste, smell, chest pain, cough, increased SOB from baseline, abd pain, pain at nephrostomy insertion, nausea, vomiting, diarrhea, melena. He is a full code and his would make his medical decisions for him if he cannot make them himself. Please refer to Dr. Lindsay's attestation for any changes to the treatment plan Discharge Exam General: NAD, VS as above, appears better than prior days Resp: normal respiratory effort, lungs clear to auscultation - On baseline 3L CV: afib, no murmur, Abd: normal bowel sounds, non tender, no hepatosplenomegaly Extremities: Moves all extremities, no edema. right BKA stump with jhonatan wrap in place Neuro: A&O x3, Skin: intact, no lesions noted Updated Medication List Medication Instructions Recorded Confirmed Type aspirin 81 mg tablet,delayed 81 mg PO QAM 11/01/22 07/17/23 History release atorvastatin 40 mg tablet 40 mg PO PM 11/01/22 07/17/23 History budesonide 160 mcg-glycopyr 9 2 inh inhalation BID 11/01/22 07/17/23 History mcg-formot 4.8 mcg/actuation HFA inhaler (Breztri Aerosphere) calcium carbonate 600 mg PO QAM 11/01/22 07/17/23 History carvedilol 3.125 mg tablet 3.125 mg PO BID 11/01/22 07/17/23 History cyanocobalamin (vitamin B-12) 1,000 mcg PO QAM 11/01/22 07/17/23 History 1,000 mcg tablet empagliflozin 10 mg tablet 10 mg PO QAM 11/01/22 07/17/23 History (Jardiance) ferrous sulfate 27 mg iron tablet 27 mg PO QAM 11/01/22 07/17/23 History furosemide 40 mg tablet (Lasix) 40 mg PO BID 11/01/22 07/17/23 History hydralazine 25 mg tablet 25 mg PO TID 11/01/22 07/17/23 History nitroglycerin 0.4 mg sublingual 0.4 mg sublingual UD PRN Chest Pain 11/01/22 07/17/23 History tablet potassium chloride 20 mEq 20 meq PO QAM 11/01/22 07/17/23 History tablet,extended release psyllium husk 3.4 gram/5.4 gram 1 tbsp PO QAM 11/01/22 07/17/23 History oral powder (Metamucil) dimenhydrinate 50 mg tablet 50 mg PO Q8H PRN Nausea 12/14/22 07/17/23 History (Dramamine) apixaban 5 mg tablet (Eliquis) 5 mg PO BID 05/03/23 07/17/23 History acetaminophen 500 mg tablet 1,000 mg PO Q6H PRN Pain 05/09/23 07/17/23 History multivitamin 1 tab PO QAM 07/09/23 07/17/23 History carvedilol 25 mg tablet 25 mg PO BIDM 30 days #60 tabs 09/13/23 Rx diclofenac sodium 1 % topical gel 4 g EXT TID #100 grams 09/13/23 Rx (Voltaren Arthritis Pain) spironolactone 25 mg tablet 25 mg PO QAM 30 days #30 tabs 09/13/23 Rx tramadol 50 mg tablet 50 mg PO Q4H PRN pain #12 tabs 09/13/23 Rx Hospital Stay Data Consultations 09/05/23 14:05 ED Decision to Admit Stat 09/05/23 15:01 Consult Orthopedic Surgery Stat 09/07/23 17:06 Consult Urology Routine 09/09/23 08:38 Consult Infectious Diseases Routine 09/10/23 08:32 Consult Cardiology Routine 09/10/23 09:59 Consult Vascular Surgery Routine Procedures Performed Operation Date: 09/05/23 09:25 Actual Procedures p Incision, Drainage and Closure of Right Below Knee Amputation Dehiscence.(Right) - Monico Jordan MD Diagnostic Imagining Performed Shoulder X-Ray 09/05/23 12:26 XR shoulder RT min 2V routine CLINICAL HISTORY: fall, shoulder pain TECHNIQUE: 3 views of the right shoulder were obtained. Comparison: None available at the time of this dictation. FINDINGS: There is no evidence of an acute fracture. Degenerative changes are seen in the glenohumeral joint. The overlying soft tissues are unremarkable. The visualized portions of the lungs are clear. IMPRESSION: Degenerative changes without evidence of acute abnormality. ACT 112: Negative or not required by law. Electronically signed by: Jay Ricketts M.D. 09/05/2023 1:55 PM Knee X-Ray 09/05/23 12:43 XR knee RT 3V CLINICAL HISTORY: fell onto BKA COMPARISON: CTA with lower extremity runoff July 12, 2023. FINDINGS: There are postoperative findings consistent with a right below-knee amputation. No fractures are present. There is no right knee joint effusion. Extensive vascular calcification is incidentally noted. IMPRESSION: Status post right below knee amputation. No fractures. ACT 112: Negative or not required by law. Electronically signed by: Biju Lr M.D. 09/05/2023 2:02 PM Chest X-Ray 09/05/23 14:35 SINGLE VIEW CHEST CLINICAL HISTORY: Fall. FINDINGS: An AP, portable, upright chest radiograph is compared to study dated 07/30/2023. The examination is degraded by portable technique and apical lordotic positioning. The patient is status post midline sternotomy. A 2-lead cardiac AICD is unchanged in position. The heart is enlarged noting atherosclerotic calcification of the thoracic aorta. There is prominence of the pulmonary vasculature. Emphysema and chronic interstitial thickening is similar to previous. There is bibasilar scarring/atelectasis. No airspace consolidation or large pleural effusion is identified. No pneumothorax is seen. The skeletal structures are osteopenic. The bony thorax is grossly intact. IMPRESSION: 1. Cardiomegaly and AICD with prominence of the pulmonary vasculature. Correlate clinically for evidence of fluid overload/congestive change. 2. Emphysema. 3. No airspace consolidation or pleural effusion is identified. ACT 112: Negative or not required by law. Electronically signed by: Gui Mendoza M.D. 09/05/2023 3:22 PM Knee X-Ray 09/05/23 19:32 XR knee RT 1 or 2V routine CLINICAL HISTORY: Surgical Post Op COMPARISON: Right knee radiographs performed earlier today. FINDINGS: Postoperative findings consistent with right below-knee amputation. There are no fractures or radiopaque foreign bodies. Surgical drain is in place. Extensive vascular calcification is incidentally noted. IMPRESSION: Status post right below knee amputation. Surgical drain in place. No unexpected radiopaque foreign bodies. ACT 112: Negative or not required by law. Electronically signed by: Biju Lr M.D. 09/06/2023 7:48 AM Chest X-Ray 09/06/23 10:44 XR chest 1V portable CLINICAL HISTORY: f/u pulm congestion TECHNIQUE: Single frontal radiograph of the chest was obtained. Comparison: Comparison is made to chest radiograph 09/05/2023 FINDINGS: Pacemaker defibrillator is seen. Median sternotomy wires are seen. Peribronchial thickening is noted. Prominence and cephalization of the vasculature is seen. No evidence of pleural effusion or pneumothorax. IMPRESSION: 1. Cardiomegaly is seen. Previously noted pulmonary edema has improved. 2. Bronchial wall thickening may represent infectious/inflammatory airways disease. ACT 112: Negative or not required by law. Electronically signed by: Jay Ricketts M.D. 09/06/2023 11:[address] 09/06/23 11:02 CT shoulder RT wo con CLINICAL HISTORY: fall, decreased ROM/R shoulder pain, eval fracture TECHNIQUE: Multidetector row helical CT of the right shoulder was performed without intravenous contrast. Coronal and sagittal reformations were obtained. Automated dose lowering techniques and/or adjustment according to patient size were utilized for this examination. CT DOSE: 464.45 mGy.cm Comparison: Comparison is made to right shoulder radiographs 09/05/2023 FINDINGS: Degenerative changes are seen in the acromioclavicular joint. There is a bony fragment arising from the anterior tip of the acromion. The soft tissues are unremarkable. IMPRESSION: Bony fracture arising from the tip of the acromion may represent nondisplaced fracture or chronic bony fragment. Correlation with point tenderness is recommended. ACT 112: Negative or not required by law. Electronically signed by: Jay Ricketts M.D. 09/06/2023 1:46 PM KUB X-Ray 09/08/23 12:39 KUB HISTORY: constipation, discomfort, eval stool burden/ileus COMPARISON: Abdomen and pelvis CTA 07/12/2023. FINDINGS: The bowel gas pattern is unremarkable. There are no dilated loops of small bowel to suggest an obstruction. No renal calculi. No ureteral calculi. No pneumoperitoneum or pneumatosis. Moderate to large amount of well-formed stool within the colon and rectum. A left-sided percutaneous nephrostomy tube is noted. A pacemaker wire is partially visualized. Mild interstitial thickening at the lung bases. IMPRESSION: 1. Nonobstructive bowel gas pattern. 2. Moderate to large amount of well-formed stool within the colon and rectum. ACT 112: Negative or not required by law. Electronically signed by: Jeramy Mlilard M.D. 09/08/2023 2:08 PM Chest X-Ray 09/10/23 07:00 XR chest 1V portable HISTORY: Shortness of breath. Congestive heart failure. Follow-up. COMPARISON: Chest 09/06/2023. FINDINGS: No pneumothorax. Trace bilateral pleural effusions. The heart remains enlarged. There are poststernotomy changes and left-sided pacemaker/defibrillator. A few small bibasilar linear densities favor subsegmental atelectasis. There is progressive interstitial/vascular thickening consistent with mild pulmonary edema. IMPRESSION: Cardiomegaly with interval progression of the mild interstitial pulmonary edema. ACT 112: Negative or not required by law. Electronically signed by: Jeramy Millard M.D. 09/10/2023 7:46 AM Pending Results Patient Have Any Pending Studies at Discharge: No Discharge Instructions Given to Patient (Per Discharging Provider) Mr. Flynn, Dominic Were hospitalized after a fall that resulted in opening of your wound and shoulder pain. You underwent a surgical procedure to close the wound and completed a course of IV antibiotics while you are here. Thankfully there was no fracture to your right shoulder. You should continue to use the sling. Continue Tylenol and Voltaren cream for the pain (a prescription for this was sent to your pharmacy, but it can also be purchased over the counter). I also sent in a few tramadol if you need those for pain. there were concerns about a urine culture however infectious disease determined that you just colonized bacteria, you showed no signs of urinary tract infection and this was not treated. During your stay there were also concerns about your heart and your breathing. Thankfully, you have weaned down to your normal 3 L of oxygen. Your heart rate has been well-controlled with medication changes. this is your new regimen: * Lasix 40 mg twice a day * carvedilol 25 mg twice a day (New dose) * spironolactone 25 mg every morning (NEW MEDICATION) * Jardiance every morning you will need close follow-up with your primary receiving teller, Dr. Ortega. Ideally to be seen in the next two weeks. You can continue to take colace 100 mg twice a day and senna at night for your bowels. These can both be purchased over the counter. Follow-up instructions from the orthopedic doctors are below. Medications: Your medication list has been reviewed and reconciled upon discharge to ensure accuracy and continuity of care. An updated list of all your medications is included with your hospital discharge paperwork. Please review this list closely, and make note of any changes. Take your medications as instructed; do not skip a dose of your medicines. Make sure all of your doctors know every medicine you are taking (including [id number] medicines, vitamins, and supplements). Call your primary care provider before taking any new medicines (including over- the-counter medicines, vitamins, and supplements), because some of these may interact with your current medications, or may make your symptoms worse. Tell your primary care provider if you cannot afford your medications. Activity: You can do normal everyday activities as your body allows. Take rest breaks if you feel tired. Do not overexert. Stop activity if you have pain, shortness of breath or feel dizzy. Follow-up appointments: Make an appointment with your primary care physician within one week of disch arge. A copy of this summary will be sent to them. Every time you see your primary care physician, or any other doctor, bring your medication list, and a list of questions. CONTACT YOUR PRIMARY CARE PROVIDER if you experience any of the following: Shortness of breath or difficulty breathing Fevers or chills Feeling tired with normal activity or experiencing dizziness or fainting Difficulty following your treatment plan, or difficulty taking medications CALL 911 OR GO TO THE EMERGENCY DEPARTMENT if you experience any of the follo wing: Severe abdominal pain or nausea/vomiting Severe chest pain, or chest pain that radiates (moves) to your jaw or arm Sudden, severe shortness of breath or difficulty breathing Thank you for allowing us to participate in your care. Total Time Total Time Spent Total Time Spent (In Minutes): Time spend day of discharge 40 minutes including direct patient care, medication reconciliation, documentation, review of labs and images, and coordination of care. Coding Level of Care Code 00808 INP/OBS DISCH >30 MIN Diagnoses Wound dehiscence T81.30XA Fall W19.XXXA Chronic HFrEF (heart failure with reduced ejection fraction) I50.22 Nephrostomy status Z93.6 Chronic respiratory failure with hypoxia J96.11 Diabetes mellitus, type 2 E11.9 NYLA (acute kidney injury) N17.9
[2023-09-13] MEDS ORDERED: carvediloL 25 MG TAB PO SCH (17:00)
== END 2023-09-13 13:57 | DRG 493 ==
LOC: ED 11:29 → OR 15:48 → SUATTDRO 15:49 → 2W 15:49
DX: Z95.810 Presence of automatic (implantable) cardiac defibrillator; I25.5 Ischemic cardiomyopathy; Z99.81 Dependence on supplemental oxygen; I08.1 Rheumatic disorders of both mitral and tricuspid valves; T87.81 Dehiscence of amputation stump; G54.6 Phantom limb syndrome with pain; Z79.82 Long term (current) use of aspirin; N17.9 Acute kidney failure, unspecified; I50.22 Chronic systolic (congestive) heart failure; Z79.84 Long term (current) use of oral hypoglycemic drugs; I25.2 Old myocardial infarction; I73.9 Peripheral vascular disease, unspecified; J96.11 Chronic respiratory failure with hypoxia; I27.20 Pulmonary hypertension, unspecified; Z88.8 Allergy status to other drugs, medicaments and biological substances; J44.9 Chronic obstructive pulmonary disease, unspecified; Z93.6 Other artificial openings of urinary tract status; E11.51 Type 2 diabetes mellitus with diabetic peripheral angiopathy without gangrene; I25.10 Atherosclerotic heart disease of native coronary artery without angina pectoris; C91.10 Chronic lymphocytic leukemia of B-cell type not having achieved remission; Z79.01 Long term (current) use of anticoagulants; Z95.1 Presence of aortocoronary bypass graft; I11.0 Hypertensive heart disease with heart failure; Z79.899 Other long term (current) drug therapy; I48.21 Permanent atrial fibrillation

== ENCOUNTER 2023-11-01 11:31 | Inpatient (IN) ==
[2023-11-01] MEDS ORDERED: SODIUM CHLORIDE 0.9% 250 ML IV PRN (12:14)
--- NOTE | 2023-11-01 12:15 | Emergency Department Note ---
Impression & Plan Nephrostomy complication, Elevated LFTs, Demand ischemia of myocardium, Cellulitis of foot, left ED Provider Note NAME: CHETNA CHARLTON AGE: 73 SEX: M : 1950 ARRIVES VIA: Ambulance INFORMANT: Patient, ED PROVIDER(S): Hardeep Colmenares MD CHIEF COMPLAINT: Bleeding from nephrostomy MEDICAL DECISION MAKING: Patient presents to concern for bleeding from the nephrostomy stay. IV was established and blood work was obtained. Patient was noted to have a white count of 15 with a hemoglobin of 12 which is around the patient's baseline or higher. Platelet count is unremarkable. Kidney function with a creat of 1.49. CT of the abdomen pelvis was also performed given the concern for bleeding from the nephrostomy. Troponin 54. Type and screen was ordered. Patient did have 1 unit typed and crossed on hold. BioFire negative. The patient was ordered antibiotics and the patient's white count. Patient did receive small amount of IV fluids as well as IV Lopressor as the patient does have a known history of A- fib. I did speak with the on-call neurologist given the concern of bleeding through the catheter. They recommended just allowing it to drain at this time provided the patient's blood loss was not substantial. Given that it is around his baseline we will not try and flush at this time. Patient CT of the abdomen pelvis does not show any hemoperitoneum. Patient was noted to have hyperdense material in the left dilated ureter but nephrostomy tube was in place. Hyperdensity may reflect delayed excretion versus ureteral blood products. I did speak with the on-call urologist Dr. Dowling who stated that the would follow the patient here in hospital but did not require transfer at this time. I did speak with the on-call hospital service Dr. Pearson and the patient was admitted to the medicine service. Discussion w/ other healthcare providers: Dr. Pearson inpatient service Dr. Dowling urology Prior /Outside records reviewed: None Differential diagnosis: Coagulopathy, bleeding within the kidney, intra-abdominal bleeding, dehydration, anemia, pneumonia among others were considered Diagnostics, as interpreted by me: ECG: A-fib with RVR, rate of 133, normal QRS duration, normal axis no ST elevations. Cardiac monitoring: An order was placed for continuous cardiac monitoring. The monitor shows a rate of 105 with irregularly irregular tachycardic rhythm. Patient was placed on pulse oximetry Medical decision rules: None Imaging studies: I informally interpreted the patient's Chest x-ray shows cardiac enlargement sternotomy wires and device noted in the left chest. No obvious pneumonia or pneumothorax with formal report to follow. HPI: Patient presents due to concern for bleeding from his nephrostomy. The patient states that he seemed to notice it yesterday to where it was pink and discolored but today appeared to be more thien blood. Patient does have the bag drained in the morning. Patient denies any chest pains but has had shortness of breath and seems to be worse compared to his prior. He is on chronic 3 L at all times. He also does have a known history of A-fib and does take Eliquis. Patient denies any falls or trauma. Additional report from the home was that he was diagnosed with cellulitis of the left lower extremity on Sunday and he reports that he did have some sores then. He did receive IV dose of Rocephin held his Lasix and cefdinir was started. The following day on the there was bright red blood in the nephrostomy Eliquis was held given 1 L of normal saline which she did not tolerate secondary to shortness of breath and rhonchi which was stopped and the patient did receive his normal Lasix. Last night patient reported some left-sided pain and pressure was noted to have ecchymosis to the flank area. Patient states that he does have a chronic cough but this is unchanged. He did have some mild discomfort to the left flank but denies any traumas or falls. PAST MEDICAL HISTORY: See Below PAST SURGICAL HISTORY: See Below SOCIAL HISTORY: See Below HOME MEDICATIONS: See Below ALLERGIES: See Below VITALS: See Below PHYSICAL EXAMINATION: GENERAL: NAD, non-toxic. EYE EXAM: Normal conjunctiva. PERRL, no anisocoria and EOM's grossly intact w/o pain. OROPHARYNX: Moist mucus membranes, grossly normal dentition. NECK: Trachea midline, no stridor. Supple, no nuchal rigidity, no adenopathy, non-tender. No signs of meningismus. FROM of the neck with good chin to chest and neck extension. LUNGS: Clear to auscultation. Normal chest wall mechanics. HEART: Tachycardic and irregularly irregular, no MRG. ABDOMEN: Abdomen soft, non-tender, no masses, no rebound or guarding. BACK: No CVA TTP. SKIN: No rashes and no bruising. UPPER EXTREMITIES: Upper extremities are grossly normal. LOWER EXTREMITIES: Right-sided AKA with healing incisional site without surrounding erythema. Left foot with erythema, compartments are soft, sensate, eschar noted to the left heel. NEURO EXAM: A&O x3, cranial nerves II-XII grossly intact, normal speech, moves all 4 extremities. Past Med/Surg History Problem List (Updated 11/05/23 @ 22:58 by Hardeep Colmenares MD) Cellulitis of foot, left (Acute) Demand ischemia of myocardium (Acute) Elevated LFTs (Acute) Acute UTI NYLA (acute kidney injury) Nephrostomy complication (Acute) Encounter for pre-operative examination Right shoulder pain (Acute) Osteoarthritis of left knee Left knee pain Gangrene of right foot 07/18/23 Diabetic foot ulcer (Acute) Pelvic lymphadenopathy Acute gout 12/30/22 Valvular heart disease Gross hematuria Medical History On home oxygen therapy 3L via continuous Osteoarthritis assisted resident resident of [facility] Diabetic foot ulcer Gout Pulmonary hypertension Tricuspid regurgitation Mitral regurgitation Dehiscence of wound CKD (chronic kidney disease) stage 3, GFR 30-59 ml/min Atrial fibrillation On Eliquis s/p ablation 2017 Bladder carcinoma bcg treatments Fall Peripheral arterial disease Chronic respiratory failure with hypoxia ICD (implantable cardioverter-defibrillator) in place 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 [facility] clinical cytogenetics director, Implant date 10/05/2021 Ischemic cardiomyopathy ICD 09/2021 CAD (coronary artery disease) CABG x 2 07/2016 Angioplasty 1996 CLL (chronic lymphocytic leukemia) known hx x years Diabetes mellitus, type 2 NIDDM SOB (shortness of breath) History of cellulitis Right Great toe- completed antibiotics Swelling and erythema significantly improved but still has mild pain (improved from previous) CHF (congestive heart failure) followed by Dr. Ortega Dyslipidemia History of gout Hard of hearing No hearing aids Myocardial Infarction 1996 & 2016 Chronic obstructive pulmonary disease 3L via continuous Surgical History Nephrostomy status S/P below knee amputation History of bladder surgery TURBT History of anesthesia reaction slow to wake History of bone marrow biopsy Right node Lymph node biopsy (04/23/23)- CLL/SLL, negative for metastatic carcinoma History of colonoscopy H/O wisdom tooth extraction History of tonsillectomy History of adenoidectomy History of cataract surgery bilateral S/P ICD (internal cardiac defibrillator) procedure Implanted 2021>last checked February 2022 ? type S/P ablation of atrial fibrillation S/P angioplasty no stents S/P CABG x 2 2016 Family History Other No family history of adverse response to anesthesia Social History Smoking Status: Former smoker Tobacco Type: Cigarettes Cigarettes Per Day: 1-2 PPD; Second Hand Exposure: No; Do You Dip or Chew Tobacco: No; Hx Alcohol Use: No Hx Substance Use: No Preferred Language: Yakut Communication Ability: Effective Leather Etcher Required: No Beliefs That Will Affect Care: None Current Living Situation: Personal Care Facility Current Living Situation Comment: [facility] Feels Safe at Home: Yes Assistive Devices: Wheelchair Allergies Allergies Allergy/AdvReac Type Severity Reaction Status Date / Time enalapril Allergy Severe Angioedema Verified 11/01/23 15:09 brimonidine [From Combigan] Allergy Intermediate Hives Verified 11/01/23 15:09 timolol Allergy Intermediate Hives Verified 11/01/23 15:09 Home Meds Home Medications Medication Instructions Recorded Confirmed aspirin 81 mg tablet,delayed 81 mg PO QAM 11/01/22 11/01/23 release atorvastatin 40 mg tablet 40 mg PO PM 11/01/22 11/01/23 budesonide 160 mcg-glycopyr 9 2 inh inhalation BID 11/01/22 11/01/23 mcg-formot 4.8 mcg/actuation HFA inhaler (Breztri Aerosphere) calcium carbonate 600 mg PO QAM 11/01/22 11/01/23 cyanocobalamin (vitamin B-12) 1,000 mcg PO QAM 11/01/22 11/01/23 1,000 mcg tablet empagliflozin 10 mg tablet 10 mg PO QAM 11/01/22 11/01/23 (Jardiance) ferrous sulfate 27 mg iron tablet 27 mg PO QAM 11/01/22 11/01/23 psyllium husk 3.4 gram/5.4 gram 1 tbsp PO QAM 11/01/22 11/01/23 oral powder (Metamucil) apixaban 5 mg tablet (Eliquis) 5 mg PO BID 05/03/23 11/01/23 multivitamin 1 tab PO QAM 07/09/23 11/01/23 bisacodyl 10 mg rectal suppository 10 mg MS DAILY PRN constipation 10/16/23 11/01/23 duloxetine 30 mg capsule,delayed 30 mg PO QAM 10/16/23 11/01/23 release sprinkle gabapentin 100 mg capsule 100 mg PO TID 10/16/23 11/01/23 guaifenesin 400 mg tablet 400 mg PO QID PRN Congestion 10/16/23 11/01/23 magnesium hydroxide 400 mg/5 mL 30 ml PO DAILY PRN NO BM 3 DAYS 10/16/23 11/01/23 oral suspension (Milk of Magnesia) melatonin 3 mg tablet 3 mg PO HS PRN Sleep 10/16/23 11/01/23 metoprolol succinate 25 mg 25 mg PO QPM 10/16/23 11/01/23 tablet,extended release 24 hr oxycodone 5 mg tablet 5 mg PO Q6H PRN Pain 10/16/23 11/01/23 ropinirole 0.25 mg tablet 0.25 mg PO HS 10/16/23 11/01/23 spironolactone 25 mg tablet 25 mg PO QAM 10/16/23 11/01/23 Gelatein 20 1 ea PO BIDM 11/01/23 11/01/23 acetaminophen 325 mg tablet 650 mg PO Q6H PRN PAIN/FEVER 11/01/23 11/01/23 (Tylenol) furosemide 20 mg tablet (Lasix) 20 mg PO QAM 11/01/23 11/01/23 sodium chloride 0.9 % 20 ml TID 11/01/23 11/01/23 sodium chloride 0.9 % (flush) 10 ml IV TID 11/01/23 11/01/23 (Normal Saline Flush 0.9 % injection syringe) Previous Rx's Medication Instructions Recorded diclofenac sodium 1 % topical gel 4 g EXT TID #100 grams 09/13/23 (Voltaren Arthritis Pain) ciprofloxacin HCl 500 mg tablet 500 mg PO DAILY 5 days #5 tabs 11/04/23 Results & Data (ED) Vital Signs Vital Signs - 24 hr 11/01/23 11:36 11/01/23 11:37 Temperature 36.6 C 36.8 C Temperature Source Oral Oral Pulse Rate 130 H Pulse Rate [Apical] 136 H Respiratory Rate 20 20 Blood Pressure 136/111 H Blood Pressure [Right Arm] 136/111 H Blood Pressure Mean 119 Blood Pressure Mean [Right Arm] 119 Blood Pressure Position Semi-fowlers Blood Pressure Position [Right Arm] Semi-fowlers Pulse Oximetry 93 Oxygen Delivery Method Nasal Cannula Nasal Cannula Oxygen Flow Rate 3 3 Sepsis Recent Fever Within 48 Hours No Sepsis New/Unexplained Change in Mental Status No Sepsis Action Taken by Nursing No Action Required Home Medications Current Medication List: was personally reviewed by me Laboratory Data Attestation: I reviewed the patient's lab results. 11/04/23 07:35 11/04/23 07:35 Lab Results 11/01/23 11/01/23 11/01/23 Range/Units 11:43 11:49 12:19 WBC 15.68 H (4.8-10.8) K/ul RBC 3.56 L (4.70-6.10) M/uL Hgb 12.0 L (14.0-18.0) g/dl POC Hgb 10.9 L (14.0-18.0) g/dl Hct 37.0 L (42.0-52.0) % POC Hct 32 L (42-52) % MCV 103.9 H (80.0-100.0) fL MCH 33.7 (25.0-34.0) pg MCHC 32.4 (32.0-36.0) g/dL RDW Std Deviation 59.8 H (36.4-46.3) fL RDW Coeff of Sharmaine 15.6 H (11.5-14.5) % Plt Count 377 (130-400) K/uL MPV 11.6 (9.4-12.4) fL Immature Gran % (Auto) 0.8 % Neut % (Auto) 63.5 % Lymph % (Auto) 28.6 % Bibb % (Auto) 6.3 % Eos % (Auto) 0.4 % Baso % (Auto) 0.4 % Neut # (Auto) 9.97 H (1.40-6.50) K/uL Lymph # (Auto) 4.48 H (1.20-3.40) K/uL Bibb # (Auto) 0.99 H (0.11-0.59) K/uL Eos # (Auto) 0.06 (0.00-0.50) K/uL Baso # (Auto) 0.06 (0.00-0.20) K/uL Immature Gran # (Auto) 0.12 (0.01-0.20) K/uL PT 13.1 H (9.0-12.0) Seconds INR 1.2 H (0.9-1.1) APTT 28 (21-31) Seconds PTT Ratio 1.0 POC Sodium 139 (135-144) mmol/L Sodium 139 (136-145) mmol/L POC Potassium 4.3 (3.3-5.0) mmol/L Potassium 4.6 (3.5-5.1) mmol/L POC Chloride 101 (101-112) mmol/L Chloride 100 (98-107) mmol/L Carbon Dioxide 30 (21-32) mmol/L POC Total CO2 26 (24-31) mmol/L Anion Gap 9 (3-11) POC Anion Gap 18.0 (16-25) mmol/L POC BUN 49 H (7-18) mg/dl BUN 49 H (6-23) mg/dl Creatinine 1.49 H (0.6-1.4) mg/dl POC Creatinine 1.5 H (0.6-1.3) mg/dl Est Cr Clr Drug Dosing 39.3 ml/min Est GFR ( Amer) 52.8 ml/min Est GFR (Non-Af Amer) 45.6 ml/min BUN/Creatinine Ratio 32.9 H (10-20) Glucose 190 H (70-99(Fasting)) mg/dl POC Glucose (70-99) mg/dl POC Glucose (other) 179 H (70-99) mg/dl Lactate (0.4-2.0) mmol/L Calcium 10.3 (8.6-10.3) mg/dl POC Ioniz Calcium Aye 1.13 (1.12-1.32) mmol/l Magnesium 2.2 (1.7-2.4) mg/dl Total Bilirubin 0.9 (0.2-1.0) mg/dl AST 100 H (13-39) U/L ALT 119 H (7-52) U/L Alkaline Phosphatase 115 H (34-104) U/L Troponin I High Sens 54.4 H* (0-20) pg/ml Total Protein 7.3 (6.0-8.3) gm/dl Albumin 4.0 (3.4-5.0) gm/dl Globulin 3.3 (2.5-4.0) gm/dl Albumin/Globulin Ratio 1.2 (0.9-2) Lipase 20 (11-82) U/L Procalcitonin (0-0.5) ng/ml Urine Color Urine Appearance (Clear) Urine pH Ur Specific [place] (1.000-1.030) Urine Protein Urine Glucose (UA) Urine Ketones Urine Blood Urine Nitrite Urine Bilirubin Urine Urobilinogen Ur Leukocyte Esterase Urine RBC (0-2) /hpf Urine WBC (0-5) /hpf Ur Epithelial Cells (0-2) /hpf Urine Bacteria (None Seen) Adenovirus (PCR) (NotDetected) B. pertussis DNA (PCR) (NotDetected) B.parapertussis DNA PCR (NotDetected) C. pneumoniae DNA (PCR) (NotDetected) Coronavirus OC43 (PCR) (NotDetected) Coronavirus HKU1 (PCR) (NotDetected) Coronavirus 229E (PCR) (NotDetected) SARS-CoV-2 (PCR) (NotDetected) Coronavirus NL63 (PCR) (NotDetected) Human Metapneumovir PCR (NotDetected) Influenza Type A (PCR) (NotDetected) Influenza Type B (PCR) (NotDetected) M. pneumoniae (PCR) (NotDetected) Parainfluenza 1 (PCR) (NotDetected) Parainfluenza 2 (PCR) (NotDetected) Parainfluenza 3 (PCR) (NotDetected) Parainfluenza 4 (PCR) (NotDetected) RSV (PCR) (NotDetected) Entero/Rhino (PCR) (NotDetected) Blood Type O Positive Antibody Screen NEGATIVE Crossmatch See Detail 11/01/23 11/01/23 11/01/23 Range/Units 12:25 14:02 14:10 WBC (4.8-10.8) K/ul RBC (4.70-6.10) M/uL Hgb (14.0-18.0) g/dl POC Hgb (14.0-18.0) g/dl Hct (42.0-52.0) % POC Hct (42-52) % MCV (80.0-100.0) fL MCH (25.0-34.0) pg MCHC (32.0-36.0) g/dL RDW Std Deviation (36.4-46.3) fL RDW Coeff of Sharmaine (11.5-14.5) % Plt Count (130-400) K/uL MPV (9.4-12.4) fL Immature Gran % (Auto) % Neut % (Auto) % Lymph % (Auto) % Bibb % (Auto) % Eos % (Auto) % Baso % (Auto) % Neut # (Auto) (1.40-6.50) K/uL Lymph # (Auto) (1.20-3.40) K/uL Bibb # (Auto) (0.11-0.59) K/uL Eos # (Auto) (0.00-0.50) K/uL Baso # (Auto) (0.00-0.20) K/uL Immature Gran # (Auto) (0.01-0.20) K/uL PT (9.0-12.0) Seconds INR (0.9-1.1) APTT (21-31) Seconds PTT Ratio POC Sodium (135-144) mmol/L Sodium (136-145) mmol/L POC Potassium (3.3-5.0) mmol/L Potassium (3.5-5.1) mmol/L POC Chloride (101-112) mmol/L Chloride (98-107) mmol/L Carbon Dioxide (21-32) mmol/L POC Total CO2 (24-31) mmol/L Anion Gap (3-11) POC Anion Gap (16-25) mmol/L POC BUN (7-18) mg/dl BUN (6-23) mg/dl Creatinine (0.6-1.4) mg/dl POC Creatinine (0.6-1.3) mg/dl Est Cr Clr Drug Dosing ml/min Est GFR ( Amer) ml/min Est GFR (Non-Af Amer) ml/min BUN/Creatinine Ratio (10-20) Glucose (70-99(Fasting)) mg/dl POC Glucose (70-99) mg/dl POC Glucose (other) (70-99) mg/dl Lactate 1.7 (0.4-2.0) mmol/L Calcium (8.6-10.3) mg/dl POC Ioniz Calcium Aye (1.12-1.32) mmol/l Magnesium (1.7-2.4) mg/dl Total Bilirubin (0.2-1.0) mg/dl AST (13-39) U/L ALT (7-52) U/L Alkaline Phosphatase (34-104) U/L Troponin I High Sens (0-20) pg/ml Total Protein (6.0-8.3) gm/dl Albumin (3.4-5.0) gm/dl Globulin (2.5-4.0) gm/dl Albumin/Globulin Ratio (0.9-2) Lipase (11-82) U/L Procalcitonin 0.07 (0-0.5) ng/ml Urine Color See Comment Urine Appearance Turbid A (Clear) Urine pH Not Reportable Ur Specific [place] 1.029 (1.000-1.030) Urine Protein Not Reportable Urine Glucose (UA) Not Reportable Urine Ketones Not Reportable Urine Blood Not Reportable Urine Nitrite Not Reportable Urine Bilirubin Not Reportable Urine Urobilinogen Not Reportable Ur Leukocyte Esterase Not Reportable Urine RBC >20 H (0-2) /hpf Urine WBC >50 H (0-5) /hpf Ur Epithelial Cells 0-2 (0-2) /hpf Urine Bacteria None Seen (None Seen) Adenovirus (PCR) Not Detected (NotDetected) B. pertussis DNA (PCR) Not Detected (NotDetected) B.parapertussis DNA PCR Not Detected (NotDetected) C. pneumoniae DNA (PCR) Not Detected (NotDetected) Coronavirus OC43 (PCR) Not Detected (NotDetected) Coronavirus HKU1 (PCR) Not Detected (NotDetected) Coronavirus 229E (PCR) Not Detected (NotDetected) SARS-CoV-2 (PCR) Not Detected (NotDetected) Coronavirus NL63 (PCR) Not Detected (NotDetected) Human Metapneumovir PCR Not Detected (NotDetected) Influenza Type A (PCR) Not Detected (NotDetected) Influenza Type B (PCR) Not Detected (NotDetected) M. pneumoniae (PCR) Not Detected (NotDetected) Parainfluenza 1 (PCR) Not Detected (NotDetected) Parainfluenza 2 (PCR) Not Detected (NotDetected) Parainfluenza 3 (PCR) Not Detected (NotDetected) Parainfluenza 4 (PCR) Not Detected (NotDetected) RSV (PCR) Not Detected (NotDetected) Entero/Rhino (PCR) Not Detected (NotDetected) Blood Type Antibody Screen Crossmatch 11/01/23 11/01/23 Range/Units 15:15 15:49 WBC (4.8-10.8) K/ul RBC (4.70-6.10) M/uL Hgb (14.0-18.0) g/dl POC Hgb (14.0-18.0) g/dl Hct (42.0-52.0) % POC Hct (42-52) % MCV (80.0-100.0) fL MCH (25.0-34.0) pg MCHC (32.0-36.0) g/dL RDW Std Deviation (36.4-46.3) fL RDW Coeff of Sharmaine (11.5-14.5) % Plt Count (130-400) K/uL MPV (9.4-12.4) fL Immature Gran % (Auto) % Neut % (Auto) % Lymph % (Auto) % Bibb % (Auto) % Eos % (Auto) % Baso % (Auto) % Neut # (Auto) (1.40-6.50) K/uL Lymph # (Auto) (1.20-3.40) K/uL Bibb # (Auto) (0.11-0.59) K/uL Eos # (Auto) (0.00-0.50) K/uL Baso # (Auto) (0.00-0.20) K/uL Immature Gran # (Auto) (0.01-0.20) K/uL PT (9.0-12.0) Seconds INR (0.9-1.1) APTT (21-31) Seconds PTT Ratio POC Sodium (135-144) mmol/L Sodium (136-145) mmol/L POC Potassium (3.3-5.0) mmol/L Potassium (3.5-5.1) mmol/L POC Chloride (101-112) mmol/L Chloride (98-107) mmol/L Carbon Dioxide (21-32) mmol/L POC Total CO2 (24-31) mmol/L Anion Gap (3-11) POC Anion Gap (16-25) mmol/L POC BUN (7-18) mg/dl BUN (6-23) mg/dl Creatinine (0.6-1.4) mg/dl POC Creatinine (0.6-1.3) mg/dl Est Cr Clr Drug Dosing ml/min Est GFR ( Amer) ml/min Est GFR (Non-Af Amer) ml/min BUN/Creatinine Ratio (10-20) Glucose (70-99(Fasting)) mg/dl POC Glucose 129 H (70-99) mg/dl POC Glucose (other) (70-99) mg/dl Lactate (0.4-2.0) mmol/L Calcium (8.6-10.3) mg/dl POC Ioniz Calcium Aye (1.12-1.32) mmol/l Magnesium (1.7-2.4) mg/dl Total Bilirubin (0.2-1.0) mg/dl AST (13-39) U/L ALT (7-52) U/L Alkaline Phosphatase (34-104) U/L Troponin I High Sens 59.3 H* (0-20) pg/ml Total Protein (6.0-8.3) gm/dl Albumin (3.4-5.0) gm/dl Globulin (2.5-4.0) gm/dl Albumin/Globulin Ratio (0.9-2) Lipase (11-82) U/L Procalcitonin (0-0.5) ng/ml Urine Color Urine Appearance (Clear) Urine pH Ur Specific [place] (1.000-1.030) Urine Protein Urine Glucose (UA) Urine Ketones Urine Blood Urine Nitrite Urine Bilirubin Urine Urobilinogen Ur Leukocyte Esterase Urine RBC (0-2) /hpf Urine WBC (0-5) /hpf Ur Epithelial Cells (0-2) /hpf Urine Bacteria (None Seen) Adenovirus (PCR) (NotDetected) B. pertussis DNA (PCR) (NotDetected) B.parapertussis DNA PCR (NotDetected) C. pneumoniae DNA (PCR) (NotDetected) Coronavirus OC43 (PCR) (NotDetected) Coronavirus HKU1 (PCR) (NotDetected) Coronavirus 229E (PCR) (NotDetected) SARS-CoV-2 (PCR) (NotDetected) Coronavirus NL63 (PCR) (NotDetected) Human Metapneumovir PCR (NotDetected) Influenza Type A (PCR) (NotDetected) Influenza Type B (PCR) (NotDetected) M. pneumoniae (PCR) (NotDetected) Parainfluenza 1 (PCR) (NotDetected) Parainfluenza 2 (PCR) (NotDetected) Parainfluenza 3 (PCR) (NotDetected) Parainfluenza 4 (PCR) (NotDetected) RSV (PCR) (NotDetected) Entero/Rhino (PCR) (NotDetected) Blood Type Antibody Screen Crossmatch Administered Medications Discontinued Medications Apixaban (Apixaban 5 Mg Tablet) 5 mg PO BID [facility] Stop: 12/04/23 08:59 Last Admin: 11/04/23 08:41 Dose: 5 mg Documented By: JASMEET Aspirin (Aspirin 81 Mg Ectab) 81 mg PO QAM [facility] Stop: 12/04/23 08:59 Last Admin: 11/04/23 08:41 Dose: 81 mg Documented By: JASMEET Ciprofloxacin (Ciprofloxacin 500 Mg Tab) 500 mg PO DAILY [facility]; Protocol Stop: 11/14/23 08:59 Last Admin: 11/04/23 08:41 Dose: 500 mg Documented By: JASMEET Cyanocobalamin (Cyanocobalamin (B-12) 500 Mcg Tablet) 1,000 mcg PO QAM [facility] Stop: 12/02/23 08:59 Last Admin: 11/04/23 08:01 Dose: 1,000 mcg Documented By: Admin: 11/03/23 08:15 Dose: 1,000 mcg Documented By: Admin: 11/02/23 09:39 Dose: 1,000 mcg Documented By: LOUANN Duloxetine HCl (Duloxetine Hcl 30 Mg Cap) 30 mg PO QAM [facility] Stop: 12/02/23 08:59 Last Admin: 11/04/23 08:01 Dose: 30 mg Documented By: Admin: 11/03/23 08:15 Dose: 30 mg Documented By: Admin: 11/02/23 09:39 Dose: 30 mg Documented By: LOUANN Ferrous Sulfate (Ferrous Sulfate 325 Mg Tab) 325 mg PO QAM [facility] Stop: 12/02/23 08:59 Last Admin: 11/02/23 09:40 Dose: 325 mg Documented By: LOUANN Fluticasone Furoate (Fluticasone Furoate 200mcg 14 Puffs/Inhaler) 1 puffs INH DAILY [facility] Stop: 12/02/23 08:59 Last Admin: 11/04/23 08:01 Dose: 1 puffs Documented By: Admin: 11/03/23 08:32 Dose: Not Given Documented By: Admin: 11/02/23 09:39 Dose: 1 puffs Documented By: LOUANN Gabapentin (Gabapentin 100 Mg Cap) 100 mg PO TID [facility] Stop: 12/01/23 20:59 Last Admin: 11/04/23 08:02 Dose: 100 mg Documented By: Admin: 11/03/23 20:08 Dose: 100 mg Documented By: Admin: 11/03/23 13:18 Dose: 100 mg Documented By: Admin: 11/03/23 08:14 Dose: 100 mg Documented By: Admin: 11/02/23 20:38 Dose: 100 mg Documented By: Admin: 11/02/23 14:17 Dose: 100 mg Documented By: Admin: 11/02/23 09:40 Dose: 100 mg Documented By: Admin: 11/01/23 21:18 Dose: 100 mg Documented By: SKYE Sodium Chloride (Nss) 500 mls @ 999 mls/hr IV .Q31M STA Stop: 11/01/23 12:35 Last Admin: 11/01/23 13:24 Dose: Not Given Documented By: ML Sodium Chloride (Nss) 250 mls @ 999 mls/hr IV .Q16M ONE Stop: 11/01/23 13:37 Last Infusion: 11/01/23 16:13 Dose: Infused Documented By: Admin: 11/01/23 13:28 Dose: 999 mls/hr Documented By: MMF Cefepime HCl 2,000 mg/ Syringe 20 mls @ 5 mls/min IV Q12H [facility]; Protocol Stop: 11/03/23 15:44 Last Admin: 11/02/23 03:48 Dose: 5 mls/min Documented By: Admin: 11/01/23 16:09 Dose: 5 mls/min Documented By: MMF Daptomycin 250 mg/ Syringe 5 mls @ 2.5 mls/min IV Q24H [facility]; Protocol Stop: 11/08/23 15:44 Last Admin: 11/03/23 15:05 Dose: 2.5 mls/min Documented By: Admin: 11/02/23 16:28 Dose: 2.5 mls/min Documented By: Admin: 11/01/23 16:09 Dose: 2.5 mls/min Documented By: MMF Lactated Ringer's (Lr) 250 mls @ 999 mls/hr IV .Q16M ONE Stop: 11/01/23 16:02 Last Infusion: 11/01/23 16:43 Dose: Infused Documented By: Admin: 11/01/23 16:14 Dose: 999 mls/hr Documented By: MMF Magnesium Sulfate/Dextrose (Magnesium Sulfate / D5w) 1 gm in 100 mls @ 50 mls/hr IV ONE ONE Stop: 11/01/23 19:24 Last Infusion: 11/01/23 19:45 Dose: Infused Documented By: Admin: 11/01/23 17:32 Dose: 50 mls/hr Documented By: ML Piperacillin Sod/Tazobactam (Sod 4.5 gm/ Dextrose) 100 mls @ 25 mls/hr IV Q8H EMILEE; Protocol Stop: 11/12/23 15:29 Last Infusion: 11/04/23 03:54 Dose: Infused Documented By: Admin: 11/03/23 23:17 Dose: 25 mls/hr Documented By: Infusion: 11/03/23 23:17 Dose: Infused Documented By: Infusion: 11/03/23 18:02 Dose: 0 mls/hr Documented By: Admin: 11/03/23 14:33 Dose: 25 mls/hr Documented By: Infusion: 11/03/23 13:03 Dose: Infused Documented By: Admin: 11/03/23 06:32 Dose: 25 mls/hr Documented By: Infusion: 11/03/23 03:40 Dose: Infused Documented By: Admin: 11/02/23 23:34 Dose: 25 mls/hr Documented By: Infusion: 11/02/23 20:38 Dose: Infused Documented By: Admin: 11/02/23 16:28 Dose: 25 mls/hr Documented By: LOUANN Piperacillin Sod/Tazobactam (Sod 4.5 gm/ Dextrose) 100 mls @ 200 mls/hr IV NOW ONE; Protocol Stop: 11/02/23 09:29 Last Infusion: 11/02/23 11:25 Dose: Infused Documented By: Admin: 11/02/23 10:39 Dose: 200 mls/hr Documented By: LOUANN Insulin Aspart (Insulin Aspart Per Unit Charge) 0 units SC ACHS [facility] Stop: 12/01/23 16:29 Last Admin: 11/04/23 12:50 Dose: Not Given Documented By: Admin: 11/04/23 08:44 Dose: Not Given Documented By: Admin: 11/03/23 21:15 Dose: Not Given Documented By: Admin: 11/03/23 17:43 Dose: Not Given Documented By: TRAV Co-signed By: VIK Admin: 11/03/23 13:31 Dose: 1 units Documented By: TRAV Co-signed By: VIK Admin: 11/03/23 08:59 Dose: 1 units Documented By: TRAV Co-signed By: VIK Admin: 11/02/23 22:00 Dose: Not Given Documented By: Admin: 11/02/23 17:41 Dose: 2 units Documented By: LOUANN Co-signed By: ROCKY Admin: 11/02/23 13:17 Dose: Not Given Documented By: Admin: 11/02/23 09:37 Dose: Not Given Documented By: Admin: 11/01/23 21:18 Dose: 1 units Documented By: SKYE Co-signed By: ANDRES Admin: 11/01/23 19:19 Dose: Not Given Documented By: LOUANN Ioversol (Optiray 320 100ml) 92 ml IV ONCE ONE Stop: 11/01/23 12:40 Last Admin: 11/01/23 12:39 Dose: 92 ml Documented By: MARY Metoprolol Succinate (Metoprolol Succ 25mg Ext Rel Tab) 25 mg PO QPM EMILEE Stop: 12/01/23 20:59 Last Admin: 11/03/23 20:08 Dose: 25 mg Documented By: Admin: 11/02/23 20:38 Dose: 25 mg Documented By: Admin: 11/01/23 21:18 Dose: 25 mg Documented By: SKYE Metoprolol Tartrate (Metoprolol Tartrate 1 Mg/Ml Vial) 5 mg IV NOW STA Stop: 11/01/23 13:21 Last Admin: 11/01/23 13:28 Dose: 5 mg Documented By: JOHN Metoprolol Tartrate (Metoprolol Tartrate 25 Mg Tab) 25 mg PO NOW STA Stop: 11/01/23 17:26 Last Admin: 11/01/23 17:32 Dose: 25 mg Documented By: DANIELA Multivitamins (Multivitamin Tab) 1 tab PO QAM EMILEE Stop: 12/02/23 08:59 Last Admin: 11/04/23 08:02 Dose: 1 tab Documented By: Admin: 11/03/23 08:14 Dose: 1 tab Documented By: Admin: 11/02/23 09:40 Dose: 1 tab Documented By: LOUANN Patiromer (Patiromer Calcium Sorbitex 8.4 Gm Pack) 8.4 gm PO ONE ONE Stop: 11/02/23 19:29 Last Admin: 11/02/23 20:37 Dose: 8.4 gm Documented By: TIFFANY Ropinirole HCl (Ropinirole Hcl 0.25 Mg Tablet) 0.25 mg PO HS EMILEE Stop: 12/01/23 20:59 Last Admin: 11/03/23 20:08 Dose: 0.25 mg Documented By: Admin: 11/02/23 20:38 Dose: 0.25 mg Documented By: Admin: 11/01/23 21:18 Dose: 0.25 mg Documented By: SKYE Sodium Chloride (Sodium Chloride 0.9% 10ml Flush) 10 ml IV TID EMILEE Stop: 12/01/23 20:59 Last Admin: 11/04/23 08:42 Dose: 10 ml Documented By: Admin: 11/03/23 20:08 Dose: 10 ml Documented By: Admin: 11/03/23 13:19 Dose: 10 ml Documented By: Admin: 11/03/23 08:17 Dose: 10 ml Documented By: Admin: 11/02/23 20:37 Dose: 10 ml Documented By: Admin: 11/02/23 15:06 Dose: 10 ml Documented By: Admin: 11/02/23 09:38 Dose: 10 ml Documented By: Admin: 11/01/23 21:19 Dose: 10 ml Documented By: SKYE Sodium Chloride (Sodium Chloride 0.9% Pf Inj 10 Ml Vial) 20 ml FLUSH QS EMILEE Stop: 12/01/23 20:59 Last Admin: 11/04/23 08:42 Dose: 20 ml Documented By: Admin: 11/04/23 01:15 Dose: 20 ml Documented By: Admin: 11/03/23 16:50 Dose: 20 ml Documented By: Admin: 11/03/23 08:17 Dose: 20 ml Documented By: Admin: 11/03/23 01:30 Dose: 20 ml Documented By: Admin: 11/02/23 16:57 Dose: 20 ml Documented By: Admin: 11/02/23 09:38 Dose: 20 ml Documented By: Admin: 11/02/23 00:11 Dose: 20 ml Documented By: Admin: 11/01/23 21:19 Dose: 20 ml Documented By: SKYE Umeclidinium/Vilanterol (Umeclidinium/Vilanterol 62.5/25mcg 7 Puffs/Inhaler) 1 puffs INH DAILY EMILEE Stop: 12/02/23 08:59 Last Admin: 11/04/23 08:02 Dose: 1 puffs Documented By: Admin: 11/03/23 08:14 Dose: 1 puffs Documented By: Admin: 11/02/23 09:39 Dose: 1 puffs Documented By: LOUANN Imaging Data Radiologist's Impression: Abdomen/Pelvis CT 11/01/23 12:05 CT abd pelvis IV con only CLINICAL HISTORY: L sided flank ecchymosis w/ blood from nephrostomy TECHNIQUE: Helical axial images of the abdomen and pelvis were obtained and displayed. Automated dose lowering techniques and/or adjustment according to patient size were utilized for this exam. This exam was performed with intravenous contrast. CT DOSE: 1137.03 mGy.cm COMPARISON: Comparison is made to CT angiogram 07/22/2023 FINDINGS: Lower chest: Emphysema and scarring is seen. Liver: Unremarkable. No focal lesions are seen. Gallbladder and biliary tree: The gallbladder is contracted. No intra- or extrahepatic biliary ductal dilation. Pancreas: Unremarkable, no focal lesions. Spleen: Unremarkable. Adrenals: Unremarkable. Kidneys and ureters: Diminutive left kidney is seen with a dilated ureter with hyperdense contents. A nephrostomy tube is seen. No hematoma is noted. A right renal cyst is seen. Bladder: Unremarkable. Reproductive organs: Prostatic calcifications are seen which may represent prior hemorrhage or granulomatous disease. Bowel: Diverticulosis is seen without diverticulitis. The appendix is normal. Lymph nodes Retroperitoneal: Subcentimeter lymph nodes are noted. Pelvic: Unremarkable. Mesenteric: Unremarkable. Peritoneum: Normal. Vessels: Atherosclerotic calcifications are seen. Infrarenal aneurysm measures up to 28 mm in diameter. Abdominal wall: No abnormality is seen about the nephrostomy tube. Bones: Degenerative changes in the visualized spine. IMPRESSION: No evidence of hematoma in the abdominal wall or peritoneum. There is hyperdense material in the left dilated ureter. The degree of dilation is increased from prior exam although the nephrostomy tube is in place. Hyperdensity may reflect delayed excretion versus ureteral blood products. ACT 112: Negative or not required by law. Electronically signed by: Jay Ricketts M.D. 11/01/2023 1:01 PM Chest X-Ray 11/01/23 12:14 XR chest 1V portable HISTORY: Shortness of breath. COMPARISON: Chest 09/10/2023. FINDINGS: No pneumothorax. No pleural effusions. The heart remains mildly enlarged. Poststernotomy changes and left-sided pacemaker/defibrillator again noted. No new focal lung consolidations to suggest a pneumonia. No acute fractures. Diffuse interstitial thickening has improved. This suggests improvement in the mild congestive change. IMPRESSION: Cardiomegaly with improvement in the mild congestive change. ACT 112: Negative or not required by law. Electronically signed by: Jeramy Millard M.D. 11/01/2023 12:44 PM Discharge Plan Visit Data Chief Complaint: Flank Pain Stated Complaint: BLEEDING ED Provider: Hardeep Colmenares Discharge Problem: Nephrostomy complication, Elevated LFTs, Demand ischemia of myocardium, Cellulitis of foot, left Patient Disposition: Admitted As Inpatient Discharge Instructions Interventions: ED Discharge Assessment Last Done: 11/01/23 17:37 Discharge Problem:
[2023-11-01 12:29] LABS: Basophils # (auto) 0.06 K/uL (0.00-0.20); Basophils % (auto) 0.4 %; Eosinophils # (auto) 0.06 K/uL (0.00-0.50); Eosinophils % (auto) 0.4 %; Immature Granulocytes # (auto) 0.12 K/uL (0.01-0.20); Immature Granulocytes % (auto) 0.8 %; Lymphocytes # (auto) 4.48 K/uL (1.20-3.40); Lymphocytes % (auto) 28.6 %; Mean Corpuscular Hemoglobin 33.7 pg (25.0-34.0); Mean Corpuscular Hgb Conc 32.4 g/dL (32.0-36.0); Mean Corpuscular Volume 103.9 fL (80.0-100.0); Mean Platelet Volume 11.6 fL (9.4-12.4); Monocytes # (auto) 0.99 K/uL (0.11-0.59); Monocytes % (auto) 6.3 %; Neutrophils # (auto) 9.97 K/uL (1.40-6.50); Neutrophils % (auto) 63.5 %; Platelet Count 377 K/uL (130-400); RDW Coefficient of Variation 15.6 % (11.5-14.5); RDW Standard Deviation 59.8 fL (36.4-46.3); Red Blood Count 3.56 M/uL (4.70-6.10); White Blood Count 15.68 K/ul (4.8-10.8)
[2023-11-01 12:32] LABS: iSTAT Creatinine 1.5 mg/dl (0.6-1.3); iSTAT Hemoglobin 10.9 g/dl (14.0-18.0); iSTAT Ionized Calcium 1.13 mmol/l (1.12-1.32); iSTAT Potassium 4.3 mmol/L (3.3-5.0)
[2023-11-01] MEDS: OPTIRAY 320 100ml IV ONE (12:39)
[2023-11-01 12:46] LABS: Albumin Globulin Ratio 1.2 (0.9-2); BUN Creatinine Ratio 32.9 (10-20); Bilirubin,Total 0.9 mg/dl (0.2-1.0); Calcium 10.3 mg/dl (8.6-10.3); Creatinine Clr Calc Pharmacy 39.3 ml/min; Est GFR (African American) 52.8 ml/min; Est GFR (Non-African American) 45.6 ml/min; Globulin 3.3 gm/dl (2.5-4.0); Potassium 4.6 mmol/L (3.5-5.1); Total Protein 7.3 gm/dl (6.0-8.3)
--- NOTE | 2023-11-01 12:46 | XRay Report ---
XR chest 1V portable HISTORY: Shortness of breath. COMPARISON: Chest 09/10/2023. FINDINGS: No pneumothorax. No pleural effusions. The heart remains mildly enlarged. Poststernotomy ch anges and left-sided pacemaker/defibrillator again noted. No new focal lung consolidations to suggest a pneumonia. No acute fractures. Diffuse interstitial thickening has improved. This suggests improve ment in the mild congestive change. IMPRESSION: Cardiomegaly with improvement in the mild congestive change. ACT 112: Negative or not required by law. Electronically signed by: Jeramy Millard M.D. 11/01/2023 12:44 PM
[2023-11-01 12:57] LABS: INR 1.2 (0.9-1.1); Partial Thromboplastin Time 28 Seconds (21-31); Prothrombin Time 13.1 Seconds (9.0-12.0)
--- NOTE | 2023-11-01 13:03 | CT Scan Report ---
CT abd pelvis IV con only CLINICAL HISTORY: L sided flank ecchymosis w/ blood from nephrostomy TECHNIQUE: Helical axial images of the abdomen and pelvis were obtained and displayed. Automated dose lowering techniques and/or adjustment according to patient size were utilized for this exam. This e xam was performed with intravenous contrast. CT DOSE: 1137.03 mGy.cm COMPARISON: Comparison is made to CT angiogram 07/22/2023 FINDINGS: Lower chest: Emphysema and scarring is seen. Liver: Unremarkable. No focal lesions are seen. Gallbladder and biliary tree: The gallbladder is contracted. No intra- or extrahepatic biliary ductal dilation. Pancreas: Unremarkable, no focal lesions. Spleen: Unremarkable. Adrenals: Unremarkable. Kidneys and ureters: Diminutive left kidney is seen with a dilated ureter with hyperdense contents. A nephrostomy tube is seen. No hematoma is noted. A right renal cyst is seen. Bladder: Unremarkable. Reproductive organs: Prostatic calcifications are seen which may represent prior hemorrhage or granul omatous disease. Bowel: Diverticulosis is seen without diverticulitis. The appendix is normal. Lymph nodes Retroperitoneal: Subcentimeter lymph nodes are noted. Pelvic: Unremarkable. Mesenteric: Unremarkable. Peritoneum: Normal. Vessels: Atherosclerotic calcifications are seen. Infrarenal aneurysm measures up to 28 mm in diamete r. Abdominal wall: No abnormality is seen about the nephrostomy tube. Bones: Degenerative changes in the visualized spine. IMPRESSION: No evidence of hematoma in the abdominal wall or peritoneum. There is hyperdense material in the left dilated ureter. The degree of dilation is increased from prior exam although the nephrostomy tube is in place. Hyperdensity may reflect delayed excretion versus ureteral blood products. ACT 112: Negative or not required by law. Electronically signed by: Jay Ricketts M.D. 11/01/2023 1:01 PM
[2023-11-01 13:22] LABS: Adenovirus PCR Not Detected (NotDetected); Bordetella parapertussis PCR Not Detected (NotDetected); Bordetella pertussis PCR Not Detected (NotDetected); Chlamydia pneumoniae PCR Not Detected (NotDetected); Coronavirus 229E PCR Not Detected (NotDetected); Coronavirus CoV-2 (COVID19)PCR Not Detected (NotDetected); Coronavirus HKU1 PCR Not Detected (NotDetected); Coronavirus NL63 PCR Not Detected (NotDetected); Coronavirus OC43PCR Not Detected (NotDetected); Human Metapneumovirus PCR Not Detected (NotDetected); Influenza A PCR Not Detected (NotDetected); Influenza B PCR Not Detected (NotDetected); Mycoplasma pneumoniae PCR Not Detected (NotDetected); Parainfluenza Virus 1 PCR Not Detected (NotDetected); Parainfluenza Virus 2 PCR Not Detected (NotDetected); Parainfluenza Virus 3 PCR Not Detected (NotDetected); Parainfluenza Virus 4 PCR Not Detected (NotDetected); Respiratory Syncytial VirusPCR Not Detected (NotDetected); Rhinovirus/Enterovirus PCR Not Detected (NotDetected)
[2023-11-01] MEDS: SODIUM CHLORIDE 0.9% 500 ML IV STA (13:24)
[2023-11-01] MEDS: SODIUM CHLORIDE 0.9% 250 ML IV ONE (13:28)
[2023-11-01] MEDS: METOPROLOL TARTRATE 1 MG/ML VIAL IV STA (13:28)
--- NOTE | 2023-11-01 14:03 | History & Physical Report ---
Date of Service November 01, 2023 Assessment & Plan (1) Nephrostomy complication: Plan: ?Sepsis No fever/chills, but does have a leukocytosis w/ Afib RVR on admission. He is not hypotensive. Is under tx for possible LLE cellulitis as outpt. Toes with erythema, +small amount of aguilar material. Has had bloody output from urostomy. UA is with turbid appearance, not reportable due to coloration/blood. UCx pending Transaminitis is present, no acute hepatic changes on CT.? Due to poor perfusion/mild shock liver. Bilirubin is not elevated Differential includes underlying infection with history of DM and enterococcal infections. Will which cefdinir to cefepime, and add daptomycin for enterococcal coverage pending UCx results and clinical reevaluation. History of heart failure reduced ejection fraction, severely reduced with ICD. Cautious fluids, improved after 500 cc bolus x 1, D50 cc bolus x 1. Rebolus as clinically indicated. Avoid IV maintenance fluids. Sepsis 30 cc/kg 1900 cc deferred due to history of clinical heart failure No no chest pain on admission Patient has been on cefdinir as outpatient. PCT is normal. Lactate is normal BC pending Nephrostomy tube bleeding - hx Bladder cancer s/p TURBT, neph nephrostomy 06/25/2023 - Nephrostomy in place.Discussed w/ Urology. Does not appear to need replacement/adjustment; does not require transfer at this time. OK for tx w abx as ntoed. Hold eliquis/asa. May flush line as needed. - Eliquis held x2 days ABSTRACT CHECKER Eliquis/aspirin held on admission - CT-A/P: No evidence of hematoma in the abdominal wall or peritoneum. There is hyperdense material in the left dilated ureter. The degree of dilation is increased from prior exam although the nephrostomy tube is in place. Hyperdensity may reflect delayed excretion versus ureteral blood products. (2) Diabetic foot ulcer: Plan: Left toes 35 with demarcated erythema, small amount of creamy white material between digits 4 and 5. Patient reports this is clinically, slowly improving on cefdinir. He will is with eschar, no demarcated erythema Diabetic foot/toe infection Left foot and calcaneal XR ordered to evaluate for bony extension Cefepime/daptomycin (3) CAD (coronary artery disease): Plan: Heart failure with reduced ejection fraction, CAD Last EF 20-25% on 09/11/2023. Cautious use of fluids. Mild AR, moderate MR, moderate TR, severe pulmonary hypertension No chest pain on admission he denies any history of CABG x 2 in 2017 but no indwelling stents. Will hold aspirin x 24 hours, and then resume 10/31 Atorvastatin held for transaminitis and dapto High sensitive troponin 54.4 in the setting of A-fib RVR. No chest pain at bedside. Patient feels improved following fluids. Suspect demand, trended. Is actually on 2 L less than his normal assessment, no signs of volume overload. Slightly volume contracted (4) CKD (chronic kidney disease) stage 3, GFR 30-59 ml/min: Plan: Baseline creatinine approximately 1.31.4, more recently has been as high as 1.63. 1.49 on admission Clinically volume contracted Spironolactone held, trend daily (5) Atrial fibrillation: Plan: History of A-fib Anticoagulation held for urostomy bleeding. Prolonged call and significant RVR, improving with small bolus of fluids and metoprolol 5 mg IV x 1 Magnesium ordered, optimize to goal of 2.0 and potassium to goal of 4.0 (6) Chronic obstructive pulmonary disease: Plan: Chronic respiratory failure with hypoxia Baseline 3 L of oxygen, patient is actually on room air at time of admission No wheezing suggestive of COPD exacerbation - Continue Breztri/formulary equivalent (7) Diabetes mellitus, type 2: Plan: Type II DM SSI Plan Chronic stable issues: History of CLL: Continue heme/unk follow-up. 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 Has had pink discolored discharge 1 day prior to admission, which has been more sanguinous today. Patient was diagnosed with left lower extremity cellulitis for which he was given IV Rocephin and then started on cefdinir. In the ER he was hypotensive and tachycardic. White count of 15, hx cll. neutrophilic without left shift. Creatinine is 1.49, baseline is approximately 1.4 but has fluctuated up to 1.6 recently. Patient has a new transaminitis with normal bilirubin. Bio fire is normal CTA/P shows no evidence of hematoma in the abdominal wall or peritoneum. Hyperdense material in left dilated ureter. This is increased from prior exam despite nephrostomy tube in place.? Delayed excretion versus ureteral blood products. Chest x-ray: Cardiomegaly noted, improvement in previously noted mild congestion EKG: A-fib RVR. Improved with rates ~100 post IVF and 1x metorpolol/ Prior UC cultures positive for Enterococcus faecalis, corynebacterium, yeast, FLOOR PRESS OPERATOR, Citrobacter Recent Abx hx 07/2023: Right lower extremity cellulitis treated with ceftriaxone narrowed to cefadroxil. Recurrent 07/25 treated with vank/cefepime. Fall with BKA dehiscence with some erythema, treated with Levaquin Tibial exposure ongoing evaluation 09/04 s/p I&D. Treated with Unasyn and fluconazole. Was afebrile doing well 09/11 after completing 7 days of antibiotic flo is seen in the ER. 'I just feel yuck'. +pressure in the L flank intermittently last 24 hours. Pressure like quality 2-3/10 in intensity. Bloody output x24 hours from urostomy. Urostomy was placed back in june. No issues sin hao until today. Pt reprots he has not had any [facility] revision and surgery on his Right leg. no fevers or chills. No night sweats. No chest pain or chest pressure. Endorses chronic shortness of breath, normally on 3L O2 at home, currently on 1L. Endorses history of orthopnea, feels 'OK' currently but has been slightly shrot of breath laying down at [place] elast 2-3 days. Denies wheezing. Denies sputum production/new cough. Has had left flank discomfort which she describes as pressure with hematuria, otherwise no change in urinary output. Has had infection being treated for the last 48 hours with cefdinir he has not missed any doses. L 3rd-5th digit with sores between the toes, erythema. Denies chest pain or chest pressure. Has not taken his Eliquis for 3 days due to bleeding Medical History: Reviewed Medications: Reviewed Surgical History: Reviewed Family history: Reviewed Allergies: Reviewed Social History: Reviewed Code Status: Full Allergies Allergy/AdvReac Type Severity Reaction Status Date / Time enalapril Allergy Severe Angioedema Verified 11/01/23 15:09 brimonidine [From Combigan] Allergy Intermediate Hives Verified 11/01/23 15:09 timolol Allergy Intermediate Hives Verified 11/01/23 15:09 Home Medications Medication Instructions Recorded Confirmed Type aspirin 81 mg tablet,delayed 81 mg PO QAM 11/01/22 11/01/23 History release atorvastatin 40 mg tablet 40 mg PO PM 11/01/22 11/01/23 History budesonide 160 mcg-glycopyr 9 2 inh inhalation BID 11/01/22 11/01/23 History mcg-formot 4.8 mcg/actuation HFA inhaler (Breztri Aerosphere) calcium carbonate 600 mg PO QAM 11/01/22 11/01/23 History cyanocobalamin (vitamin B-12) 1,000 mcg PO QAM 11/01/22 11/01/23 History 1,000 mcg tablet empagliflozin 10 mg tablet 10 mg PO QAM 11/01/22 11/01/23 History (Jardiance) ferrous sulfate 27 mg iron tablet 27 mg PO QAM 11/01/22 11/01/23 History psyllium husk 3.4 gram/5.4 gram 1 tbsp PO QAM 11/01/22 11/01/23 History oral powder (Metamucil) apixaban 5 mg tablet (Eliquis) 5 mg PO BID 05/03/23 11/01/23 History multivitamin 1 tab PO QAM 07/09/23 11/01/23 History diclofenac sodium 1 % topical gel 4 g EXT TID #100 grams 09/13/23 11/01/23 Rx (Voltaren Arthritis Pain) bisacodyl 10 mg rectal suppository 10 mg DC DAILY PRN constipation 10/16/23 11/01/23 History duloxetine 30 mg capsule,delayed 30 mg PO QAM 10/16/23 11/01/23 History release sprinkle gabapentin 100 mg capsule 100 mg PO TID 10/16/23 11/01/23 History guaifenesin 400 mg tablet 400 mg PO QID PRN Congestion 10/16/23 11/01/23 History magnesium hydroxide 400 mg/5 mL 30 ml PO DAILY PRN NO BM 3 DAYS 10/16/23 11/01/23 History oral suspension (Milk of Magnesia) melatonin 3 mg tablet 3 mg PO HS PRN Sleep 10/16/23 11/01/23 History metoprolol succinate 25 mg 25 mg PO QPM 10/16/23 11/01/23 History tablet,extended release 24 hr oxycodone 5 mg tablet 5 mg PO Q6H PRN Pain 10/16/23 11/01/23 History ropinirole 0.25 mg tablet 0.25 mg PO HS 10/16/23 11/01/23 History spironolactone 25 mg tablet 25 mg PO QAM 10/16/23 11/01/23 History Gelatein 20 1 ea PO BIDM 11/01/23 11/01/23 History acetaminophen 325 mg tablet 650 mg PO Q6H PRN PAIN/FEVER 11/01/23 11/01/23 History (Tylenol) cefdinir 300 mg capsule 300 mg PO BID 11/01/23 11/01/23 History furosemide 20 mg tablet (Lasix) 20 mg PO QAM 11/01/23 11/01/23 History sodium chloride 0.9 % 20 ml TID 11/01/23 11/01/23 History sodium chloride 0.9 % (flush) 10 ml IV TID 11/01/23 11/01/23 History (Normal Saline Flush 0.9 % injection syringe) Past Med/Surg History Problem List (Updated 11/01/23 @ 15:26 by Monico Pearson MD) Nephrostomy complication Encounter for pre-operative examination Right shoulder pain (Acute) Osteoarthritis of left knee Left knee pain Gangrene of right foot 07/18/23 Diabetic foot ulcer (Acute) Pelvic lymphadenopathy Acute gout 12/30/22 Valvular heart disease Gross hematuria Medical History (Updated 11/01/23 @ 15:26 by Monico Pearson MD) On home oxygen therapy 3L via continuous Osteoarthritis prison resident resident of [place] Diabetic foot ulcer Gout Pulmonary hypertension Tricuspid regurgitation Mitral regurgitation Dehiscence of wound CKD (chronic kidney disease) stage 3, GFR 30-59 ml/min Atrial fibrillation On Eliquis s/p ablation 2017 Bladder carcinoma bcg treatments Fall Peripheral arterial disease Chronic respiratory failure with hypoxia ICD (implantable cardioverter-defibrillator) in place 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 [employer]ar[employer], Implant date 10/05/2021 Ischemic cardiomyopathy ICD 09/2021 CAD (coronary artery disease) CABG x 2 07/2016 Angioplasty 1996 CLL (chronic lymphocytic leukemia) known hx x years Diabetes mellitus, type 2 NIDDM SOB (shortness of breath) History of cellulitis Right Great toe- completed antibiotics Swelling and erythema significantly improved but still has mild pain (improved from previous) CHF (congestive heart failure) followed by Dr. Ortega Dyslipidemia History of gout Hard of hearing No hearing aids Myocardial Infarction 1996 & 2016 Chronic obstructive pulmonary disease 3L via continuous Surgical History Nephrostomy status S/P below knee amputation History of bladder surgery TURBT History of anesthesia reaction slow to wake History of bone marrow biopsy Right node Lymph node biopsy (04/23/23)- CLL/SLL, negative for metastatic carcinoma History of colonoscopy H/O wisdom tooth extraction History of tonsillectomy History of adenoidectomy History of cataract surgery bilateral S/P ICD (internal cardiac defibrillator) procedure Implanted 2021>last checked February 2022 ? type S/P ablation of atrial fibrillation S/P angioplasty no stents S/P CABG x 2 2016 Family History Other No family history of adverse response to anesthesia Social History Smoking Status: Never smoker Tobacco Type: Cigarettes Cigarettes Per Day: 1-2 PPD; Second Hand Exposure: No; Do You Dip or Chew Tobacco: No; Hx Alcohol Use: No Hx Substance Use: No Preferred Language: Upper Sorbian Communication Ability: Effective Antique Jewelry Repairer Required: No Beliefs That Will Affect Care: None Current Living Situation: Rehab Current Living Situation Comment: [place] Feels Safe at Home: Yes Assistive Devices: Cane, Oxygen - Continuous, Walker and Wheelchair Physical Exam Physical Exam: General: A&Ox3. NAD. Cooperative. HEENT: Atraumatic, normocephalic. Vision and hearing grossly intact Pulm: Metrical chest rise, no distress. On 1 L. Diminished but grossly clear Cardiac: Irregularly irregular. Tachycardic. +SM. Radial pulses intact and symmetrical. Abdominal: Nontender, nondistended, soft. BS present. Nephrostomy tube left is in place draining serosanguineous material. Ext: Left toes 35 with demarcated erythema and some creamy white material adherent, tender to palpation. Left heel is with eschar, nontender and no demarcated erythema. RLE amputation site well-healing without surrounding erythema/warmth. Results & Data Results & Data Vital Signs (Past 12 Hours) Vital Signs Temp Pulse Pulse Resp BP BP Pulse Ox 11/01/23 13:47 103 H 19 136/93 95 11/01/23 13:28 132 H 136/107 H 11/01/23 12:25 132 H 11/01/23 12:23 94 11/01/23 11:37 36.8 C 130 H 20 136/111 H 11/01/23 11:36 36.6 C 136 H 20 136/111 H 93 O2 Del Method O2 Flow Rate 11/01/23 13:47 Room Air 11/01/23 13:28 11/01/23 12:25 11/01/23 12:23 Nasal Cannula 3 11/01/23 11:37 Nasal Cannula 3 11/01/23 11:36 Nasal Cannula 3 PG Care Time/CCT Total # of Minutes Spent Total Time Spent with Patient: Total time spent is greater than 50% in coordination of care (as documented) at patient's floor/unit and/or counseling patient: Coding Level of Care Code 29257 INT INP/OBS CARE 375MIN Diagnoses Nephrostomy complication N99.528 Diabetic ulcer of toe of right foot associated with type 2 diabetes mellitus, with other ulcer severity E11.621; L97.518 Diabetes mellitus type: type 2 Diabetic foot ulcer location: toe Laterality: right Non-pressure ulcer stage: with other severity CAD (coronary artery disease) I25.10 CKD (chronic kidney disease) stage 3, GFR 30-59 ml/min N18.30 Atrial fibrillation I48.91 Chronic obstructive pulmonary disease J44.9 Diabetes mellitus, type 2 E11.9 (2) Diabetic foot ulcer Diabetes mellitus type: type 2 Diabetic foot ulcer location: toe Laterality: right Non-pressure ulcer stage: with other severity Qualified Code(s): E11.621 - Type 2 diabetes mellitus with foot ulcer; L97.518 - Non-pressure chronic ulcer of other part of right foot with other specified severity
[2023-11-01 14:36] LABS: Appearance Urine Turbid (Clear); Specific Gravity Urine 1.029 (1.000-1.030)
[2023-11-01 14:38] LABS: RBC Urine >20 /hpf (0-2)
[2023-11-01 14:39] LABS: Bacteria Urine None Seen (None Seen); Epithelial Cell Urine 0-2 /hpf (0-2); WBC Urine >50 /hpf (0-5)
[2023-11-01 14:39] LABS: Magnesium 2.2 mg/dl (1.7-2.4)
[2023-11-01 14:51] LABS: Troponin I High Sensitivity 54.4 pg/ml (0-20)
[2023-11-01] MEDS ORDERED: GLUCOSE 40% GEL 15 GM TUBE PO PRN (15:29)
[2023-11-01] MEDS ORDERED: DEXTROSE 50% 50 ML SYRINGE IV PRN (15:29)
[2023-11-01] MEDS ORDERED: GLUCOSE 10 TAB/TUBE PO PRN (15:29)
[2023-11-01] MEDS ORDERED: CARBOHYDRATES FOR HYPOGLYCEMIA PO PRN (15:29)
[2023-11-01] MEDS ORDERED: GLUCAGON FOR INJ 1 MG VIAL SQ PRN (15:29)
[2023-11-01] MEDS ORDERED: METOPROLOL TARTRATE 1 MG/ML VIAL IV PRN (15:46)
[2023-11-01] MEDS ORDERED: ACETAMINOPHEN 325 MG TAB PO PRN (15:56)
[2023-11-01] MEDS ORDERED: POLYETHYLENE (MIRALAX) 17 GM PACK PO PRN (15:56)
[2023-11-01] MEDS: CEFEPIME 2,000 MG in SYRINGE 0 ML IV SCH (16:09)
[2023-11-01] MEDS: DAPTOmycin 250 MG in SYRINGE 0 ML IV SCH (16:09)
[2023-11-01] MEDS: LACTATED RINGER'S 250 ML IV ONE (16:14)
--- NOTE | 2023-11-01 16:50 | Urology Consultation ---
Date of Consultation November 01, 2023 Assessment & Plan (1) Nephrostomy complication: Nephrostomy tube placed to be draining well. Blood in the urine could be related to irritation from the tube itself, irritation from acute UTI or other causes such as malignancy. As long as the tube is draining, would hold blood thinners if possible, continue to monitor. Is okay to flush with injectable saline if needed. If the nephrostomy tube becomes fully clogged, he would need transfer for exchange. (2) NYLA (acute kidney injury): Nephrostomy tube seems to be draining reasonably well. He had a fair amount of urine in the bladder on his CT scan. Would recommend bladder scan/PVR to ensure he is emptying well. If not, consider CIC or Silva placement. (3) Acute UTI: Agree with urine and blood cultures, treat with broad-spectrum antibiotics and narrow coverage as culture data becomes available. Plan He is scheduled for antegrade nephrostomy study with possible conversion to a stent in November. Pending his clinical course, he may be a candidate to have this done sooner, especially since he is already holding his Eliquis. Urology will follow along. 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 He previously has had tumor involving the left ureteral orifice causing chronic hydronephrosis. He had a nephrostomy tube placed in June,. He was tentatively going to be scheduled for antegrade studies by the nephrostomy tube while in the operating room to attempt to identify the ureteral orifice and allow conversion to a ureteral stent. His surgery has been delayed as he has had issues with wound healing after a ri ght leg amputation. He presented to the emergency room on 11/01/2023 having developed blood in his nephrostomy tube with associated left-sided flank pain. He had previously been holding his Eliquis for a day or 2 because of the bleeding. He did not have the tube traumatically pulled back. He has not had any clots that of obstruct the tube. It has been draining reasonably well. He does have a little bit of lightheadedness earlier. Workup in the emergency department was notable for leukocytosis (WBC 15.7).Hemoglobin was essentially at his baseline at 12. Creatinine was 1.49, having been as low as 1.03 earlier this year. Blood and urine cultures are pending. A CT scan of the abdomen and pelvis was performed. I independently reviewed these images. Both kidneys are in normal position. There is hydronephrosis/dilation of the left renal pelvis. He has nephrostomy tube that seems to be in good position. The left kidney looks somewhat atrophic with small exophytic cysts. His right kidney looks grossly normal. His bladder is markedly distended. The left ureter is dilated with some hyperdense material present. Allergies Allergy/AdvReac Type Severity Reaction Status Date / Time enalapril Allergy Severe Angioedema Verified 11/01/23 15:09 brimonidine [From Combigan] Allergy Intermediate Hives Verified 11/01/23 15:09 timolol Allergy Intermediate Hives Verified 11/01/23 15:09 Home Medications Medication Instructions Recorded Confirmed Type aspirin 81 mg tablet,delayed 81 mg PO QAM 11/01/22 11/01/23 History release atorvastatin 40 mg tablet 40 mg PO PM 11/01/22 11/01/23 History budesonide 160 mcg-glycopyr 9 2 inh inhalation BID 11/01/22 11/01/23 History mcg-formot 4.8 mcg/actuation HFA inhaler (Breztri Aerosphere) calcium carbonate 600 mg PO QAM 11/01/22 11/01/23 History cyanocobalamin (vitamin B-12) 1,000 mcg PO QAM 11/01/22 11/01/23 History 1,000 mcg tablet empagliflozin 10 mg tablet 10 mg PO QAM 11/01/22 11/01/23 History (Jardiance) ferrous sulfate 27 mg iron tablet 27 mg PO QAM 11/01/22 11/01/23 History psyllium husk 3.4 gram/5.4 gram 1 tbsp PO QAM 11/01/22 11/01/23 History oral powder (Metamucil) apixaban 5 mg tablet (Eliquis) 5 mg PO BID 05/03/23 11/01/23 History multivitamin 1 tab PO QAM 07/09/23 11/01/23 History diclofenac sodium 1 % topical gel 4 g EXT TID #100 grams 09/13/23 11/01/23 Rx (Voltaren Arthritis Pain) bisacodyl 10 mg rectal suppository 10 mg LA DAILY PRN constipation 10/16/23 11/01/23 History duloxetine 30 mg capsule,delayed 30 mg PO QAM 10/16/23 11/01/23 History release sprinkle gabapentin 100 mg capsule 100 mg PO TID 10/16/23 11/01/23 History guaifenesin 400 mg tablet 400 mg PO QID PRN Congestion 10/16/23 11/01/23 History magnesium hydroxide 400 mg/5 mL 30 ml PO DAILY PRN NO BM 3 DAYS 10/16/23 11/01/23 History oral suspension (Milk of Magnesia) melatonin 3 mg tablet 3 mg PO HS PRN Sleep 10/16/23 11/01/23 History metoprolol succinate 25 mg 25 mg PO QPM 10/16/23 11/01/23 History tablet,extended release 24 hr oxycodone 5 mg tablet 5 mg PO Q6H PRN Pain 10/16/23 11/01/23 History ropinirole 0.25 mg tablet 0.25 mg PO HS 10/16/23 11/01/23 History spironolactone 25 mg tablet 25 mg PO QAM 10/16/23 11/01/23 History Gelatein 20 1 ea PO BIDM 11/01/23 11/01/23 History acetaminophen 325 mg tablet 650 mg PO Q6H PRN PAIN/FEVER 11/01/23 11/01/23 History (Tylenol) cefdinir 300 mg capsule 300 mg PO BID 11/01/23 11/01/23 History furosemide 20 mg tablet (Lasix) 20 mg PO QAM 11/01/23 11/01/23 History sodium chloride 0.9 % 20 ml TID 11/01/23 11/01/23 History sodium chloride 0.9 % (flush) 10 ml IV TID 11/01/23 11/01/23 History (Normal Saline Flush 0.9 % injection syringe) Patient History Medical History (Updated 11/01/23 @ 16:52 by Tono Dowling MD) On home oxygen therapy 3L via continuous Osteoarthritis long-term resident resident of [facility] Diabetic foot ulcer Gout Pulmonary hypertension Tricuspid regurgitation Mitral regurgitation Dehiscence of wound CKD (chronic kidney disease) stage 3, GFR 30-59 ml/min Atrial fibrillation On Eliquis s/p ablation 2018 Bladder carcinoma bcg treatments Fall Peripheral arterial disease Chronic respiratory failure with hypoxia ICD (implantable cardioverter-defibrillator) in place 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 Ortega Dyslipidemia History of gout Hard of hearing No hearing aids Myocardial Infarction 1996 & 2016 Chronic obstructive pulmonary disease 3L via continuous Surgical History Nephrostomy status S/P below knee amputation History of bladder surgery TURBT History of anesthesia reaction slow to wake History of bone marrow biopsy Right node Lymph node biopsy (04/23/23)- CLL/SLL, negative for metastatic carcinoma History of colonoscopy H/O wisdom tooth extraction History of tonsillectomy History of adenoidectomy History of cataract surgery bilateral S/P ICD (internal cardiac defibrillator) procedure Implanted 2021>last checked February 2022 ? 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 Physical Exam Constitutional: well developed and well nourished; no acute distress Eyes: + anicteric sclerae; pupils not irregula r Respiratory: normal respiratory effort; no respiratory distress, does not use accessory muscles and no cough Cardiovascular: Mild tachycardia on telemetry Gastrointestinal (Abdomen): Inspection/Auscultation: abdomen not distended Left nephrostomy tube draining maroon urine, no clots Musculoskeletal: RLE amputation, dressings on left toes Skin: normal turgor; no rashes and no lesions Neurologic: moves all extremities and awake Psychiatric: Orientation: alert and oriented x 3 Results & Data Vital Signs (Past 12 Hours) Vital Signs Temp Pulse Pulse Resp BP BP Pulse Ox 11/01/23 16:30 107 H 11/01/23 15:11 119 H 19 115/93 93 11/01/23 13:47 103 H 19 136/93 95 11/01/23 13:28 132 H 136/107 H 11/01/23 12:25 132 H 11/01/23 12:23 94 11/01/23 11:37 36.8 C 130 H 20 136/111 H 11/01/23 11:36 36.6 C 136 H 20 136/111 H 93 O2 Del Method O2 Flow Rate 11/01/23 16:30 11/01/23 15:11 Room Air 11/01/23 13:47 Room Air 11/01/23 13:28 11/01/23 12:25 11/01/23 12:23 Nasal Cannula 3 11/01/23 11:37 Nasal Cannula 3 11/01/23 11:36 Nasal Cannula 3 PG Care Time/CCT Total # of Minutes Spent Total Time Spent with Patient: Total time spent is greater than 50% in coordination of care (as documented) at patient's floor/unit and/or counseling patient: Coding Level of Care Code 66067 INT INP/OBS CARE 2/55MIN Diagnoses Nephrostomy complication N99.528 NYLA (acute kidney injury) N17.9 Acute UTI N39.0
[2023-11-01] MEDS: METOPROLOL TARTRATE 25 MG TAB PO STA (17:32)
[2023-11-01] MEDS: MAGNESIUM SULFATE / D5W 1 GM/100 ML BAG IV ONE (17:32)
[2023-11-01] MEDS ORDERED: MAGNESIUM HYDROXIDE SUSP 30 ML UDC PO PRN (18:03)
[2023-11-01] MEDS ORDERED: oxyCODONE HCL IR 5 MG TAB (IMMEDIATE RELEASE) PO PRN (18:03)
[2023-11-01] MEDS ORDERED: MELATONIN 3 MG TAB PO PRN (18:03)
[2023-11-01] MEDS: INSULIN ASPART PER UNIT CHARGE SC SCH (19:19)
[2023-11-01] MEDS: METOPROLOL SUCC 25MG EXT REL TAB PO SCH (21:18)
[2023-11-01] MEDS: rOPINIRole HCL 0.25 MG TABLET PO SCH (21:18)
[2023-11-01] MEDS: GABAPENTIN 100 MG CAP PO SCH (21:18)
[2023-11-01] MEDS: SODIUM CHLORIDE 0.9% 10ML FLUSH IV SCH (21:19)
[2023-11-01] MEDS: SODIUM CHLORIDE 0.9% PF INJ 10 ML VIAL FLUSH SCH (21:19)
[2023-11-02 07:14] LABS: Albumin Level 3.8 gm/dl (3.4-5.0); Bilirubin Direct 0.5 mg/dl (0-0.2); Bilirubin,Total 1.3 mg/dl (0.2-1.0); Calcium 10.4 mg/dl (8.6-10.3); Potassium 5.3 mmol/L (3.5-5.1)
[2023-11-02 07:20] LABS: BUN Creatinine Ratio 31.2 (10-20); Est GFR (African American) 50.8 ml/min; Est GFR (Non-African American) 43.8 ml/min
[2023-11-02 07:33] LABS: Hemoglobin 12.2 g/dl (14.0-18.0); Mean Corpuscular Hemoglobin 33.7 pg (25.0-34.0); Mean Corpuscular Hgb Conc 31.3 g/dL (32.0-36.0); Mean Corpuscular Volume 107.7 fL (80.0-100.0); Mean Platelet Volume 11.6 fL (9.4-12.4); Nucleated RBC # (auto) 0.02 K/uL (0.00-0.12); Nucleated RBC % (auto) 0.1 %; Platelet Count 459 K/uL (130-400); RDW Coefficient of Variation 15.9 % (11.5-14.5); RDW Standard Deviation 62.9 fL (36.4-46.3); Red Blood Count 3.62 M/uL (4.70-6.10); White Blood Count 19.53 K/ul (4.8-10.8)
[2023-11-02 08:20] LABS: Basophils # (auto) 0.09 K/uL (0.00-0.20); Basophils % (auto) 0.5 %; Eosinophils # (auto) 0.08 K/uL (0.00-0.50); Eosinophils % (auto) 0.4 %; Immature Granulocytes # (auto) 0.15 K/uL (0.01-0.20); Immature Granulocytes % (auto) 0.8 %; Lymphocytes # (auto) 5.73 K/uL (1.20-3.40); Lymphocytes % (auto) 29.3 %; Monocytes # (auto) 1.36 K/uL (0.11-0.59); Neutrophils # (auto) 12.12 K/uL (1.40-6.50); Smudge Cells Present
[2023-11-02] MEDS ORDERED: CALCIUM CARBONATE 500 MG CHEWABLE TAB PO SCH (09:00)
[2023-11-02] MEDS: CYANOCOBALAMIN (B-12) 500 MCG TABLET PO SCH (09:39)
[2023-11-02] MEDS: FLUTICASONE FUROATE 200MCG 14 PUFFS/INHALER INH SCH (09:39)
[2023-11-02] MEDS: DULoxetine HCL 30 MG CAP PO SCH (09:39)
[2023-11-02] MEDS: UMECLIDINIUM/VILANTEROL 62.5/25MCG 7 PUFFS/INHALER INH SCH (09:39)
[2023-11-02] MEDS: FERROUS SULFATE 325 MG TAB PO SCH (09:40)
[2023-11-02] MEDS: MULTIVITAMIN TAB PO SCH (09:40)
[2023-11-02] MEDS: PIPER/TAZO 4.5g in D5W MINI-B 100 ML IV ONE (10:39)
--- NOTE | 2023-11-02 11:43 | Ultrasound Report ---
ABDOMINAL ULTRASOUND, RIGHT UPPER QUADRANT HISTORY: elevated LFTs,assess for acute cholecystitis. COMPARISON: Abdomen and pelvis CT 11/01/2023. FINDINGS: Pancreas: The pancreas demonstrates a normal echotexture. Liver: Unremarkable. Gallbladder: No gallbladder wall thickening. No gallstones. Negative sonographic Hancock sign. CBD: 4 mm. Right kidney: The punctate stone within the right kidney and a 14 mm cyst. No hydronephrosis. IMPRESSION: 1. Normal gallbladder. No gallstones. 2. Right-sided nephrolithiasis. No hydronephrosis. ACT 112: Negative or not required by law. Electronically signed by: Jeramy Millard M.D. 11/02/2023 11:41 AM
[2023-11-02] MEDS ORDERED: ONDANSETRON INJ 2 MG/ML 2 ML VIAL IV PRN (12:12)
--- NOTE | 2023-11-02 12:36 | Urology Progress Note ---
Date of Service November 02, 2023 Assessment & Plan (1) Nephrostomy complication: (2) NYAL (acute kidney injury): (3) Acute UTI: (4) Gross hematuria: Plan 73yo/M with a hx of nonmuscle invasive high-grade bladder cancer s/p BCG treatments. He previously has had tumor involving the left ureteral orifice causing chronic hydronephrosis. He had a nephrostomy tube placed in June 2023. CT abdomen pelvis on arrival demonstrated hydronephrosis/dilation of the left renal pelvis, left nephrostomy tube in good position, left ureter is dilated with some hyperdense material present, and bladder markedly distended. - Pt afebrile, normotensive, mildly tachycardic at present. - Labs today - WBC 19.53, Hemoglobin 12.2, Creatinine 1.54. Continue to trend. - Urine culture prelim gram negative bacilli/probable pseudomonas; Blood cultures pending. - Nephrostomy tube draining maroon urine, no clots. Continue to monitor. OK to flush as needed with injectable saline. If the nephrostomy tube becomes fully clogged, he would need transfer for exchange. - Voiding spontaneously. Urine was clear yellow in urinal. Continue to monitor. Recommend bladder scan/PVR to ensure he is emptying well. - Continue antibiotic therapy and tailor as culture data becomes available. - Continue supportive care. - Anticoagulation remains on hold. - No plan for acute intervention. - Urology will follow along. Admission and Anticipated Discharge Date Admission Date: November 01, 2023 Supervising Physician Co-Signing Physician Notes Discussed patient with BRIDGETT. Agree with plan. Subjective Pt seen at bedside this AM Awake, resting in bed on arrival No acute distress Left nephrostomy tube draining maroon urine, no clots Voiding spontaneously. Clear yellow urine in urinal. No reported pain at present Denies f/c/n/v Review of Systems Constitutional: as per Subjective / HPI Gastrointestinal: as per Subjective / HPI Genitourinary: + as per Subjective / HPI Physical Exam Constitutional: no acute distress Respiratory: normal respiratory effort; no respiratory distress Cardiovascular: Mild tachycardia on telemetry Gastrointestinal (Abdomen): Inspection/Auscultation: abdomen not distended Musculoskeletal: RLE amputation Neurologic: awake Psychiatric: Orientation: alert and oriented x 3 Genitourinary: Left nephrostomy tube draining maroon urine, no clots Results & Data Vital Signs (Past 12 Hours) Vital Signs Temp Pulse Resp BP Pulse Ox O2 Del Method O2 Flow Rate 11/02/23 12:11 Nasal Cannula 3 11/02/23 12:04 37 C 110 H 18 119/81 91 Nasal Cannula 3 11/02/23 08:13 36.4 C L 116 H 17 116/76 96 Nasal Cannula 2 11/02/23 03:28 36.4 C L 106 H 18 130/75 96 Nasal Cannula 3 PG Care Time/CCT Total # of Minutes Spent Total Time Spent with Patient: Total time spent is greater than 50% in coordination of care (as documented) at patient's floor/unit and/or counseling patient: Coding Level of Care Code 00623 SUB INP/OBS CARE 235MIN Diagnoses Nephrostomy complication N99.528 NYLA (acute kidney injury) N17.9 Acute UTI N39.0 Gross hematuria R31.0
--- NOTE | 2023-11-02 12:39 | Hospitalist Progress Note ---
Date of Service November 02, 2023 Assessment & Plan (1) Acute UTI: Plan: Presented with leukocytosis, tachycardia, left foot cellulitis and ulceration as well as UTI as sources of sepsis. Not hypotensive, no fevers, lactate normal Blood cultures remain no growth to date, urine culture with probable Pseudomonas species and gram-negative bacilli, further ID and sensitivities pending With elevated LFTs and 1 episode of nausea/vomiting on 11/01-checked right upper quadrant ultrasound which was negative for acute cholecystitis-likely more shock liver from sepsis although no documented hypotension here -Change antibiotics to IV Zosyn and discontinued cefepime for better coverage in case of gallbladder issue -Continue daptomycin given history of Enterococcus in the urine -Both IV Zosyn and daptomycin will cover for cellulitis of the left foot which was already improving on oral cefdinir at home prior to admission-wound care nurse consult ordered for foot -Follow blood cultures and final urine culture results -Gross hematuria in nephrostomy tube likely from UTI versus tube trauma- appreciate urology consultation-holding home Eliquis and will monitor CBC -Follow BMP -With nausea/vomiting could be from UTI/nephrostomy tube issue with hematuria- clear liquids diet only, antiemetics as needed (2) Nephrostomy complication: Plan: Nephrostomy tube with gross hematuria - hx Bladder cancer s/p TURBT, neph nephrostomy 06/25/2023 - Nephrostomy in place.Discussed w/ Urology. Does not appear to need replacement/adjustment; does not require transfer at this time. OK for tx w abx as ntoed. Hold eliquis/asa. May flush line as needed. - Eliquis held - CT-A/P: No evidence of hematoma in the abdominal wall or peritoneum. There is hyperdense material in the left dilated ureter. The degree of dilation is increased from prior exam although the nephrostomy tube is in place. Hyperdensity may reflect delayed excretion versus ureteral blood products (3) Elevated LFTs: Plan: Total bilirubin mildly elevated at 1.3 but AST and ALT in the thousands, alkaline phosphatase normal, INR mildly elevated at 1.2 Checked right upper quadrant ultrasound-negative for acute cholecystitis CT abdomen/pelvis with normal liver and contracted gallbladder on admission Likely due to sepsis/shock liver Checked CK-normal Follow LFTs in the morning and expect should normalize now that blood pressures are normal and sepsis being treated (4) Demand ischemia of myocardium: Plan: Troponin minimally elevated and peaked at 71 No chest pain, no ischemic changes on ECG He does have a history of CABG with underlying CAD and ischemic cardiomyopathy Follow clinically Holding home aspirin for hematuria but can resume when safe from that standpoint Holding home atorvastatin for elevated LFTs and in conjunction with interaction while on daptomycin (5) Ischemic cardiomyopathy: Plan: Low EF with ICD in place, Last EF 20-25% on 09/11/2023. Cautious use of fluids. Mild AR, moderate MR, moderate TR, severe pulmonary hypertension Continue Toprol-XL Holding home Jardiance, Lasix, spironolactone with sepsis-resume when clinical picture improving Follow I's and O's, daily weights He has a history of angioedema to PANCHITO inhibitor and therefore he is not on an PANCHITO inhibitor, ARB, or Entresto (6) Diabetic foot ulcer: Plan: Left toes 35 with cellulitis, maceration and open ulcerations between toes Improved prior to admission on cefdinir as above-continue current IV antibiotics Heel with eschar Consult wound care nurse No need for imaging (7) CAD (coronary artery disease): Plan: history of CABG x 2 in 2017 but no indwelling stents Holding aspirin as above but resume when hematuria improves (8) CKD (chronic kidney disease) stage 3, GFR 30-59 ml/min: Plan: Baseline creatinine approximately 1.31.4, more recently has been as high as 1.63. 1.49 on admission and now 1.5 Clinically volume contracted Spironolactone and Lasix held Follow BMP (9) Atrial fibrillation: Plan: Permanent atrial fibrillation, is currently in rate controlled A-fib here Anticoagulation held for urostomy bleeding. Follow on telemetry Continue beta-qian (10) Chronic obstructive pulmonary disease: Plan: Chronic respiratory failure with hypoxia Baseline 3 L of oxygen, patient is actually on room air at time of admission No wheezing suggestive of COPD exacerbation - Continue Breztri/formulary equivalent (11) Diabetes mellitus, type 2: Plan: Type II DM SSI Jardiance from home on hold Plan Chronic stable issues: History of CLL: Continue heme/unk follow-up. No signs of blasts or critical leukocytosis on admission RLS-continue Requip Peripheral neuropathy-continue gabapentin, Cymbalta PAD-aspirin and statin on hold Hypercalcemia-hold calcium supplement DVT ppx: pharmacy ppx held for nephrostomy bleeding CODE: Full Dispo: Continued stay on medical floor with telemetry but eventually discharged back to half-way at [facility] where he came from once medically stable Admission and Anticipated Discharge Date Admission Date: November 01, 2023 Subjective Patient reports feeling a bit better today. Denies any abdominal pains. Had some nausea and 1 episode of vomiting this morning which is the first time he has vomited in 60 years. No chest pains. Did have a little bit of shortness of breath this morning. Telemetry with atrial fibrillation and PVCs with a 7 beat run of V. tach Physical Exam Constitutional: WD/WN, vitals as above Respiratory: normal respiratory effort, lungs clear to auscultation Cardiovascular: RRR, no murmur, no edema Gastrointestinal (Abdomen): normal bowel sounds, soft, nontender, no hepatosplenomegaly Skin: Small area of ecchymosis in the left flank superior to the nephrostomy tube Left heel with 4 cm circular eschar Left fourth and fifth interdigit space with ulcerations Very mild and improving erythema left dorsal lateral foot Genitourinary: Left nephrostomy tube and bag with bloody urine dark red Results & Data Results & Data Vital Signs (Past 12 Hours) Vital Signs Temp Pulse Resp BP Pulse Ox O2 Del Method O2 Flow Rate 11/02/23 12:11 Nasal Cannula 3 11/02/23 12:04 37 C 110 H 18 119/81 91 Nasal Cannula 3 11/02/23 08:13 36.4 C L 116 H 17 116/76 96 Nasal Cannula 2 11/02/23 03:28 36.4 C L 106 H 18 130/75 96 Nasal Cannula 3 Laboratory Results CBC, BMP, troponin, CK, LFTs reviewed PG Care Time/CCT Total # of Minutes Spent Total Time Spent with Patient: Total time spent is greater than 50% in coordination of care (as documented) at patient's floor/unit and/or counseling patient: Coding Level of Care Code 88810 SUB INP/OBS CARE 3/50MIN Diagnoses Acute UTI N39.0 Nephrostomy complication N99.528 Elevated LFTs R79.89 Demand ischemia of myocardium I24.89 Ischemic cardiomyopathy I25.5 Diabetic ulcer of toe of right foot associated with type 2 diabetes mellitus, with other ulcer severity E11.621; L97.518 Diabetes mellitus type: type 2 Diabetic foot ulcer location: toe Laterality: right Non-pressure ulcer stage: with other severity CAD (coronary artery disease) I25.10 CKD (chronic kidney disease) stage 3, GFR 30-59 ml/min N18.30 Atrial fibrillation I48.91 Chronic obstructive pulmonary disease J44.9 Diabetes mellitus, type 2 E11.9 (6) Diabetic foot ulcer Diabetes mellitus type: type 2 Diabetic foot ulcer location: toe Laterality: right Non-pressure ulcer stage: with other severity Qualified Code(s): E11.621 - Type 2 diabetes mellitus with foot ulcer; L97.518 - Non-pressure chronic ulcer of other part of right foot with other specified severity
[2023-11-02] MEDS: PIPERACILLIN/TAZOBACTAM 4.5 GM in DEXTROSE 5% MINI-B 100 ML IV SCH (16:28)
--- NOTE | 2023-11-02 19:46 | Electrocardiogram Report ---
Test Reason : Blood Pressure : / mmHG Vent. Rate : 133 BPM Atrial Rate : 000 BPM P-R Int : 000 ms QRS Dur : 114 ms QT Int : 304 ms P-R-T Axes : 000 046 241 degrees QTc Int : 452 ms Atrial fibrillation with rapid ventricular response with premature ventricular or aberrantly conducte d complexes Marked ST abnormality, possible inferior subendocardial injury Abnormal ECG When compared with ECG of 05-SEP-2023 13:11, Inverted T waves have replaced nonspecific T wave abnormality in Inferior leads Confirmed by Michael Medina ([id number]) on 11/02/2023 7:46:25 PM Referred By: REFERRED SELF Confirmed By:Michael Medina
[2023-11-02] MEDS: PATIROMER CALCIUM SORBITEX 8.4 GM PACK PO ONE (20:37)
--- NOTE | 2023-11-03 09:07 | Urology Progress Note ---
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 He previously has had tumor involving the left ureteral orifice causing chronic hydronephrosis. He had a nephrostomy tube placed in June 2023. CT abdomen pelvis on arrival demonstrated hydronephrosis/dilation of the left renal pelvis, left nephrostomy tube in good position, left ureter is dilated with some hyperdense material present, and bladder markedly distended. - Pt afebrile, normotensive, mildly tachycardic at present. - Labs pending today but yesterday were WBC 19.53, Hemoglobin 12.2, Creatinine 1.54. Continue to trend. - Urine culture growing pseudomonas, serratia; Blood cultures no growth to date - Nephrostomy tube draining maroon urine, no clots. Continue to monitor. OK to flush as needed with injectable saline. If the nephrostomy tube becomes fully clogged, he would need transfer for exchange. - Voiding spontaneously. Urine was clear yellow in urinal. Continue to monitor. Recommend bladder scan/PVR to ensure he is emptying well. - Continue antibiotic therapy and tailor as culture data becomes available. Likely could d/c daptomycin and transition to ciprofloxacin renally dosed based on culture data - Continue supportive care. -Primary team can restart anticoagulation at their discretion - No plan for acute intervention. - Urology will to follow peripherally. Explained to patient that would not recommend doing procedure while he is inpatient due to risk of infection and becoming septic afterwards Admission and Anticipated Discharge Date Admission Date: November 01, 2023 Subjective No acute issues overnight. Patient does report feeling better. Afebrile with stable blood pressures. Mildly tachycardic in the low 100s. Labs pending today but white blood cell count was 19.53 yesterday. Creatinine yesterday was 1.54 urine culture is growing out Serratia and Pseudomonas. He is on daptomycin and Zosyn. Blood cultures no growth to date. Nephrostomy tube is draining thin but bloody urine. Physical Exam Physical Exam: General: Alert and oriented, no acute distress HEENT: Normocephalic, mucous membranes moist Pulmonary: Nonlabored respirations Abdomen: Nondistended : Left nephrostomy tube draining thin, bloody urine Extremities: Moves all 4 spontaneously Neuro: No gross deficits Skin: Warm, dry, no rashes noted Results & Data Vital Signs (Past 12 Hours) Vital Signs Temp Pulse Pulse Resp BP BP Pulse Ox 11/03/23 08:47 100 H 11/03/23 07:41 36.6 C 102 H 18 133/83 93 11/03/23 03:03 37.1 C 105 H 18 130/83 98 11/02/23 23:02 11/02/23 22:28 36.5 C 99 H 16 119/70 96 11/02/23 21:49 103 H O2 Del Method O2 Flow Rate 11/03/23 08:47 11/03/23 07:41 Nasal Cannula 2 11/03/23 03:03 Nasal Cannula 2 11/02/23 23:02 Nasal Cannula 3 11/02/23 22:28 Nasal Cannula 2 11/02/23 21:49 PG Care Time/CCT Total # of Minutes Spent Total Time Spent with Patient: Total time spent is greater than 50% in coordination of care (as documented) at patient's floor/unit and/or counseling patient: Coding Level of Care Code 30313 SUB INP/OBS CARE 235MIN Diagnoses Nephrostomy complication N99.528 Gross hematuria R31.0 Acute UTI N39.0
[2023-11-03 11:27] LABS: BUN Creatinine Ratio 26.9 (10-20); Calcium 9.5 mg/dl (8.6-10.3); Creatinine Clr Calc Pharmacy 29.1 ml/min; Est GFR (African American) 36.8 ml/min; Est GFR (Non-African American) 31.7 ml/min; Potassium 4.3 mmol/L (3.5-5.1)
--- NOTE | 2023-11-03 11:28 | Hospitalist Progress Note ---
Date of Service November 03, 2023 Assessment & Plan (1) Acute UTI: Plan: Presented with leukocytosis, tachycardia, left foot cellulitis and ulceration as well as UTI as sources of sepsis. Not hypotensive, no fevers, lactate normal Blood cultures remain no growth to date, urine culture with probable Pseudomonas species and gram-negative bacilli, further ID and sensitivities pending With elevated LFTs and 1 episode of nausea/vomiting on 11/01-checked right upper quadrant ultrasound which was negative for acute cholecystitis-likely more shock liver from sepsis although no documented hypotension here -Initially started empirically on Zosyn and daptomycin -However urine cultures growing Serratia and Pseudomonas both sensitive to ciprofloxacin. -Will transition to p.o. ciprofloxacin 500 mg twice daily (2) Nephrostomy complication: Plan: Nephrostomy tube with gross hematuria - hx Bladder cancer s/p TURBT, neph nephrostomy 06/25/2023 - Nephrostomy in place.Discussed w/ Urology. Does not appear to need replacement/adjustment; does not require transfer at this time. OK for tx w abx as ntoed. Hold eliquis/asa. May flush line as needed. - Eliquis held - CT-A/P: No evidence of hematoma in the abdominal wall or peritoneum. There is hyperdense material in the left dilated ureter. The degree of dilation is increased from prior exam although the nephrostomy tube is in place. Hyperdensity may reflect delayed excretion versus ureteral blood products -No surgical plans for now by urology (3) Elevated LFTs: Plan: Total bilirubin mildly elevated at 1.3 but AST and ALT in the thousands, alkaline phosphatase normal, INR mildly elevated at 1.2 Checked right upper quadrant ultrasound-negative for acute cholecystitis CT abdomen/pelvis with normal liver and contracted gallbladder on admission Likely due to sepsis/shock liver Checked CK-normal Follow LFTs in the morning and expect should normalize now that blood pressures are normal and sepsis being treated (4) Demand ischemia of myocardium: Plan: Troponin minimally elevated and peaked at 71 No chest pain, no ischemic changes on ECG He does have a history of CABG with underlying CAD and ischemic cardiomyopathy Follow clinically Holding home aspirin for hematuria but can resume when safe from that standpoint Holding home atorvastatin for elevated LFTs and in conjunction with interaction while on daptomycin (5) Ischemic cardiomyopathy: Plan: Low EF with ICD in place, Last EF 20-25% on 09/11/2023. Cautious use of fluids. Mild AR, moderate MR, moderate TR, severe pulmonary hypertension Continue Toprol-XL Holding home Jardiance, Lasix, spironolactone with sepsis-resume when clinical picture improving Follow I's and O's, daily weights He has a history of angioedema to PANCHITO inhibitor and therefore he is not on an PANCHITO inhibitor, ARB, or Entresto (6) Diabetic foot ulcer: Plan: Left toes 35 with cellulitis, maceration and open ulcerations between toes Improved prior to admission on cefdinir as above-continue current IV antibiotics Heel with eschar Consult wound care nurse No need for imaging (7) CAD (coronary artery disease): Plan: history of CABG x 2 in 2017 but no indwelling stents Holding aspirin as above but resume when hematuria improves (8) CKD (chronic kidney disease) stage 3, GFR 30-59 ml/min: Plan: Creatinine close to baseline Clinically volume contracted Spironolactone and Lasix held Follow BMP (9) Atrial fibrillation: Plan: Permanent atrial fibrillation, is currently in rate controlled A-fib here Anticoagulation held for urostomy bleeding. Follow on telemetry Continue beta-qian (10) Chronic obstructive pulmonary disease: Plan: Chronic respiratory failure with hypoxia Baseline 3 L of oxygen, patient is actually on room air at time of admission No wheezing suggestive of COPD exacerbation - Continue Breztri/formulary equivalent (11) Diabetes mellitus, type 2: Plan: Type II DM SSI Jardiance from home on hold Plan Chronic stable issues: History of CLL: Continue heme/unk follow-up. No signs of blasts or critical leukocytosis on admission RLS-continue Requip Peripheral neuropathy-continue gabapentin, Cymbalta PAD-aspirin and statin on hold Hypercalcemia-hold calcium supplement DVT ppx: pharmacy ppx held for nephrostomy bleeding CODE: Full Dispo: Continued stay on medical floor with telemetry but eventually discharged back to assisted at [facility] where he came from once medically stable,Hopefully next 24 to 48 hours Admission and Anticipated Discharge Date Admission Date: November 01, 2023 Subjective Patient seen and examined, feels a little better Review of Systems Review of Systems: All systems reviewed are negative, apart from the ones contained in the history. Physical Exam Physical Exam: The patient is awake, alert and oriented 3, well developed and well nourished, normocephalic and atraumatic, lying in bed and in no acute distress. HEENT--PERRL, EOMI, mucous membranes and oropharynx mildly dry Neck--supple. No JVD. No bruits. Thyroid normal, trachea midline, no adenopathy. Heart--normal S1 and S2. No murmurs, rubs or gallops. Lungs--clear bilaterally, no respiratory distress, no accessory muscle use. Abdomen--normal bowel sounds and soft. Extremities--Right below the knee amputation Dermatologic--normal skin turgor, normal color, no abnormal lymph nodes, no rash. Neurologic--cranial nerves II through XII grossly intact. Rheumatologic--normal range of motion. Psychiatric--normal affect. Results & Data Results & Data Vital Signs (Past 12 Hours) Vital Signs Temp Pulse Pulse Resp BP BP Pulse Ox 11/03/23 09:53 11/03/23 08:47 100 H 11/03/23 08:35 97.7 F 87 16 117/77 99 11/03/23 07:41 97.9 F 102 H 18 133/83 93 11/03/23 03:03 98.8 F 105 H 18 130/83 98 O2 Del Method O2 Flow Rate 11/03/23 09:53 Nasal Cannula 3 11/03/23 08:47 11/03/23 08:35 Nasal Cannula 11/03/23 07:41 Nasal Cannula 2 11/03/23 03:03 Nasal Cannula 2 PG Care Time/CCT Total # of Minutes Spent Total Time Spent with Patient: Total time spent is greater than 50% in coordination of care (as documented) at patient's floor/unit and/or counseling patient: Coding Level of Care Code 29213 SUB INP/OBS CARE 2/35MIN Diagnoses Acute UTI N39.0 Nephrostomy complication N99.528 Elevated LFTs R79.89 Demand ischemia of myocardium I24.89 Ischemic cardiomyopathy I25.5 Diabetic ulcer of toe of right foot associated with type 2 diabetes mellitus, with other ulcer severity E11.621; L97.518 Diabetes mellitus type: type 2 Diabetic foot ulcer location: toe Laterality: right Non-pressure ulcer stage: with other severity CAD (coronary artery disease) I25.10 CKD (chronic kidney disease) stage 3, GFR 30-59 ml/min N18.30 Atrial fibrillation I48.91 Chronic obstructive pulmonary disease J44.9 Diabetes mellitus, type 2 E11.9 Time Spent (min) 35 (6) Diabetic foot ulcer Diabetes mellitus type: type 2 Diabetic foot ulcer location: toe Laterality: right Non-pressure ulcer stage: with other severity Qualified Code(s): E11.621 - Type 2 diabetes mellitus with foot ulcer; L97.518 - Non-pressure chronic ulcer of other part of right foot with other specified severity
[2023-11-03 12:06] LABS: Albumin Level 3.5 gm/dl (3.4-5.0); Bilirubin Direct 0.7 mg/dl (0-0.2); Bilirubin,Total 1.6 mg/dl (0.2-1.0); Magnesium 2.2 mg/dl (1.7-2.4); Total Protein 6.5 gm/dl (6.0-8.3)
[2023-11-03 15:09] LABS: Hematocrit (blood only) 37.9 % (42.0-52.0); Hemoglobin 11.9 g/dl (14.0-18.0); Mean Corpuscular Hemoglobin 34.1 pg (25.0-34.0); Mean Corpuscular Hgb Conc 31.4 g/dL (32.0-36.0); Mean Corpuscular Volume 108.6 fL (80.0-100.0); Mean Platelet Volume 11.8 fL (9.4-12.4); Nucleated RBC # (auto) 0.07 K/uL (0.00-0.12); Nucleated RBC % (auto) 0.3 %; Platelet Count 397 K/uL (130-400); RDW Standard Deviation 63.5 fL (36.4-46.3); Red Blood Count 3.49 M/uL (4.70-6.10)
[2023-11-03 15:26] LABS: Basophils # (auto) 0.06 K/uL (0.00-0.20); Basophils % (auto) 0.2 %; Eosinophils # (auto) 0.03 K/uL (0.00-0.50); Eosinophils % (auto) 0.1 %; Immature Granulocytes # (auto) 0.26 K/uL (0.01-0.20); Immature Granulocytes % (auto) 1.1 %; Lymphocytes # (auto) 7.85 K/uL (1.20-3.40); Lymphocytes % (auto) 31.9 %; Monocytes # (auto) 1.25 K/uL (0.11-0.59); Monocytes % (auto) 5.1 %; Neutrophils # (auto) 15.15 K/uL (1.40-6.50); Neutrophils % (auto) 61.6 %
[2023-11-03 15:39] LABS: Polychromasia 1+
[2023-11-04 07:53] LABS: Hematocrit (blood only) 38.2 % (42.0-52.0); Hemoglobin 12.1 g/dl (14.0-18.0); Mean Corpuscular Hemoglobin 34.5 pg (25.0-34.0); Mean Corpuscular Hgb Conc 31.7 g/dL (32.0-36.0); Mean Corpuscular Volume 108.8 fL (80.0-100.0); Mean Platelet Volume 11.5 fL (9.4-12.4); Nucleated RBC # (auto) 0.08 K/uL (0.00-0.12); Nucleated RBC % (auto) 0.3 %; Platelet Count 407 K/uL (130-400); RDW Coefficient of Variation 16.1 % (11.5-14.5); RDW Standard Deviation 63.4 fL (36.4-46.3); Red Blood Count 3.51 M/uL (4.70-6.10); White Blood Count 25.95 K/ul (4.8-10.8)
[2023-11-04 08:16] LABS: Calcium 9.1 mg/dl (8.6-10.3)
[2023-11-04 08:21] LABS: BUN Creatinine Ratio 28.7 (10-20); Creatinine Clr Calc Pharmacy 32.3 ml/min; Est GFR (African American) 41.8 ml/min
[2023-11-04 08:36] LABS: Basophils # (auto) 0.07 K/uL (0.00-0.20); Basophils % (auto) 0.3 %; Eosinophils # (auto) 0.08 K/uL (0.00-0.50); Eosinophils % (auto) 0.3 %; Immature Granulocytes # (auto) 0.37 K/uL (0.01-0.20); Immature Granulocytes % (auto) 1.4 %; Lymphocytes % (auto) 33.1 %; Monocytes # (auto) 1.18 K/uL (0.11-0.59); Monocytes % (auto) 4.5 %; Neutrophils # (auto) 15.65 K/uL (1.40-6.50); Neutrophils % (auto) 60.4 %; Polychromasia 1+
[2023-11-04] MEDS: APIXABAN 5 MG TABLET PO SCH (08:41)
[2023-11-04] MEDS: ASPIRIN 81 MG ECTAB PO SCH (08:41)
[2023-11-04] MEDS: CIPROFLOXACIN 500 MG TAB PO SCH (08:41)
--- NOTE | 2023-11-04 11:43 | Discharge Summary ---
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 Has had pink discolored discharge 1 day prior to admission, which has been more sanguinous today. Patient was diagnosed with left lower extremity cellulitis for which he was given IV Rocephin and then started on cefdinir. In the ER he was hypotensive and tachycardic. White count of 15, hx cll. neutrophilic without left shift. Creatinine is 1.49, baseline is approximately 1.4 but has fluctuated up to 1.6 recently. Patient has a new transaminitis with normal bilirubin. Bio fire is normal CTA/P shows no evidence of hematoma in the abdominal wall or peritoneum. Hyperdense material in left dilated ureter. This is increased from prior exam despite nephrostomy tube in place.? Delayed excretion versus ureteral blood products. Chest x-ray: Cardiomegaly noted, improvement in previously noted mild congestion EKG: A-fib RVR. Improved with rates ~100 post IVF and 1x metorpolol/ Prior UC cultures positive for Enterococcus faecalis, corynebacterium, yeast, YOUTH OFFICER, Citrobacter Recent Abx hx 07/2023: Right lower extremity cellulitis treated with ceftriaxone narrowed to cefadroxil. Recurrent 07/25 treated with vank/cefepime. Fall with BKA dehiscence with some erythema, treated with Levaquin Tibial exposure ongoing evaluation 09/04 s/p I&D. Treated with Unasyn and fluconazole. Was afebrile doing well 09/11 after completing 7 days of antibiotic michael is seen in the ER. 'I just feel yuck'. +pressure in the L flank intermittently last 24 hours. Pressure like quality 2-3/10 in intensity. Bloody output x24 hours from urostomy. Urostomy was placed back in june. No issues sinc hao until today. Pt reprots he has not had any procedures sin ethe revision and surgery on his Right leg. no fevers or chills. No night sweats. No chest pain or chest pressure. Endorses chronic shortness of breath, normally on 3L O2 at home, currently on 1L. Endorses history of orthopnea, feels 'OK' currently but has been slightly shrot of breath laying down at [facility] elast 2-3 days. Denies wheezing. Denies sputum production/new cough. Has had left flank discomfort which she describes as pressure with hematuria, otherwise no change in urinary output. Has had infection being treated for the last 48 hours with cefdinir he has not missed any doses. L 3rd-5th digit with sores between the toes, erythema. Denies chest pain or chest pressure. Has not taken his Eliquis for 3 days due to bleeding Medical History: Reviewed Medications: Reviewed Surgical History: Reviewed Family history: Reviewed Allergies: Reviewed Social History: Reviewed Code Status: Full Admission Exam (Per Admitting) Constitutional The patient is awake, alert and oriented 3, well developed and well nourished, normocephalic and atraumatic, lying in bed and in no acute distress. HEENT--PERRL, EOMI, mucous membranes and oropharynx mildly dry Neck--supple. No JVD. No bruits. Thyroid normal, trachea midline, no adenopa thy. Heart--normal S1 and S2. No murmurs, rubs or gallops. Lungs--clear bilaterally, no respiratory distress, no accessory muscle use. Abdomen--normal bowel sounds and soft. Extremities--no cyanosis or clubbing. No edema. Dermatologic--normal skin turgor, normal color, no abnormal lymph nodes, no rash. Neurologic--cranial nerves II through XII grossly intact. Rheumatologic--normal range of motion. Psychiatric--normal affect. Discharge Data Consultations 11/01/23 13:21 Consult Urology Routine ED Decision to Admit Stat Hospital Course (1) Acute UTI: Presented with leukocytosis, tachycardia, left foot cellulitis and ulceration as well as UTI as sources of sepsis. Not hypotensive, no fevers, lactate normal Blood cultures remain no growth to date, urine culture with probable Pseudomonas species and gram-negative bacilli, further ID and sensitivities pending With elevated LFTs and 1 episode of nausea/vomiting on 11/01-checked right upper quadrant ultrasound which was negative for acute cholecystitis-likely more shock liver from sepsis although no documented hypotension here -Initially started empirically on Zosyn and daptomycin -However urine cultures growing Serratia and Pseudomonas both sensitive to ciprofloxacin. -Will transition to p.o. ciprofloxacin 500 mg twice daily (2) Nephrostomy complication: Nephrostomy tube with gross hematuria - hx Bladder cancer s/p TURBT, neph nephrostomy 06/25/2023 - Nephrostomy in place.Discussed w/ Urology. Does not appear to need replacement/adjustment; does not require transfer at this time. OK for tx w abx as ntoed. Hold eliquis/asa. May flush line as needed. - Eliquis held - CT-A/P: No evidence of hematoma in the abdominal wall or peritoneum. There is hyperdense material in the left dilated ureter. The degree of dilation is increased from prior exam although the nephrostomy tube is in place. Hyperdensity may reflect delayed excretion versus ureteral blood products -No surgical plans for now by urology (3) Elevated LFTs: Total bilirubin mildly elevated at 1.3 but AST and ALT in the thousands, alkaline phosphatase normal, INR mildly elevated at 1.2 Checked right upper quadrant ultrasound-negative for acute cholecystitis CT abdomen/pelvis with normal liver and contracted gallbladder on admission Likely due to sepsis/shock liver Checked CK-normal Follow LFTs in the morning and expect should normalize now that blood pressures are normal and sepsis being treated (4) Demand ischemia of myocardium: Troponin minimally elevated and peaked at 71 No chest pain, no ischemic changes on ECG He does have a history of CABG with underlying CAD and ischemic cardiomyopathy Follow clinically Holding home aspirin for hematuria but can resume when safe from that standpoint Holding home atorvastatin for elevated LFTs and in conjunction with interaction while on daptomycin (5) Ischemic cardiomyopathy: Low EF with ICD in place, Last EF 20-25% on 09/11/2023. Cautious use of fluids. Mild AR, moderate MR, moderate TR, severe pulmonary hypertension Continue Toprol-XL Holding home Jardiance, Lasix, spironolactone with sepsis-resume when clinical picture improving Follow I's and O's, daily weights He has a history of angioedema to PANCHITO inhibitor and therefore he is not on an PANCHITO inhibitor, ARB, or Entresto (6) Diabetic foot ulcer: Left toes 35 with cellulitis, maceration and open ulcerations between toes Improved prior to admission on cefdinir as above-continue current IV antibiotics Heel with eschar Consult wound care nurse No need for imaging (7) CAD (coronary artery disease): history of CABG x 2 in 2017 but no indwelling stents Holding aspirin as above but resume when hematuria improves (8) CKD (chronic kidney disease) stage 3, GFR 30-59 ml/min: Creatinine close to baseline Clinically volume contracted Spironolactone and Lasix held Follow BMP (9) Atrial fibrillation: Permanent atrial fibrillation, is currently in rate controlled A-fib here Anticoagulation held for urostomy bleeding. Follow on telemetry Continue beta-qian (10) Chronic obstructive pulmonary disease: Chronic respiratory failure with hypoxia Baseline 3 L of oxygen, patient is actually on room air at time of admission No wheezing suggestive of COPD exacerbation - Continue Breztri/formulary equivalent (11) Diabetes mellitus, type 2: Type II DM SSI Jardiance from home on hold Plan Chronic stable issues: History of CLL: Continue heme/unk follow-up. No signs of blasts or critical leukocytosis on admission RLS-continue Requip Peripheral neuropathy-continue gabapentin, Cymbalta PAD-aspirin and statin on hold Hypercalcemia-hold calcium supplement DVT ppx: pharmacy ppx held for nephrostomy bleeding CODE: Full Dispo: Continued stay on medical floor with telemetry but eventually discharged back to [facility] where he came from once medically stable,Hopefully next 24 to 48 hours Coding Level of Care Code 94170 INP/OBS DISCH >30 MIN Diagnoses Acute UTI N39.0 Nephrostomy complication N99.528 Elevated LFTs R79.89 Demand ischemia of myocardium I24.89 Ischemic cardiomyopathy I25.5 Diabetic ulcer of toe of right foot associated with type 2 diabetes mellitus, with other ulcer severity E11.621; L97.518 Diabetes mellitus type: type 2 Diabetic foot ulcer location: toe Laterality: right Non-pressure ulcer stage: with other severity CAD (coronary artery disease) I25.10 CKD (chronic kidney disease) stage 3, GFR 30-59 ml/min N18.30 Atrial fibrillation I48.91 Chronic obstructive pulmonary disease J44.9 Diabetes mellitus, type 2 E11.9 Time Spent (min) 35
[2023-11-04] MEDS ORDERED: ATORVASTATIN 40 MG TAB PO SCH (21:00)
--- NOTE | 2023-11-05 10:50 | Coding Query ---
CODING QUERY To promote full compliance with coding requirements relating to patient care, provider participation is requested in all cases of heavy truck driver uncertainty. Please assist us with the question(s) below: Clinical Indicators: History and Physical 11/01/23: * ED Vitals: Temp - 36.6; Pulse 136; Resp - 20; BP - 136/111; Pulse Ox 93 * No fever/chills, but does have a leukocytosis w/ Afib RVR on admission * He is not hypotensive * Is under tx for possible LLE cellulitis as outpt Labs 11/01/2023" * WBC - 15.68 * Lactate - 1.7; Procalcitonin - 0.07 Urology Consult: * NYLA * Acute UTI * Treat with broad-spectrum antibiotics and narrow coverage as culture data becomes available Discharge Summary: * Presented with leukocytosis, tachycardia, left foot cellulitis and ulceration as well as UTI as sources of sepsis. Not hypotensive, no fevers, lactate normal * Blood cultures remain no growth to date, urine culture with probable Pseudomonas species and gram-negative bacilli * Elevated LFTs: Likely due to sepsis/shock liver; expect should normalize now that blood pressures are normal and sepsis being treated Coding Question(s): Based on the above clinical indicators, are you able to confirm if the diagnosis of sepsis is: ( x) Ruled in (x ) POA ( ) Not POA ( ) Ruled out ( ) Other ( ) Unable to determine. Physician's Response(s): Thank you Amanda Oviedo Principal Diagnosis: "that condition established after study, to be chiefly responsible for occasioning the admission of the patient to the hospital for care." Co-Existing Principal Diagnosis: "when two or more diagnoses equally meet the criteria for principal diagnosis as determined by the circumstances of admission, diagnostic work up, and/or therapy provided, and the Alphabetic Index, Tabular List, or another coding guideline does not provide sequencing direction, any one of the diagnoses may be sequenced first." "When the physician has documented what appears to be a current diagnosis in the body of the record, but has not included the diagnosis in the final diagnostic statement, the physician should be asked whether the diagnosis should be added." (Source Coding Clinic 2 QTR90. p3-4) DEO
--- NOTE | 2023-11-08 14:26 | Coding Query ---
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 Discharge Summary: * Presented with leukocytosis, tachycardia, left foot cellulitis and ulceration as well as UTI as sources of sepsis. * Nephrostomy complication * Nephrostomy tube with gross hematuria Coding Question(s): Based on the above clinical indicators, are you able to further specify the source of the sepsis as: ( ) Nephrostomy complication ( ) Acute UTI ( ) Left foot cellulitis ( ) Other (please specify) ( x) Unable to determine. Thank you Amanda Oviedo Principal Diagnosis: "that condition established after study, to be chiefly responsible for occasioning the admission of the patient to the hospital for care." Co-Existing Principal Diagnosis: "when two or more diagnoses equally meet the criteria for principal diagnosis as determined by the circumstances of admission, diagnostic work up, and/or therapy provided, and the Alphabetic Index, Tabular List, or another coding guideline does not provide sequencing direction, any one of the diagnoses may be sequenced first." "When the physician has documented what appears to be a current diagnosis in the body of the record, but has not included the diagnosis in the final diagnostic statement, the physician should be asked whether the diagnosis should be added." (Source Coding [facility] 2 QTR90. p3-4) DEO
== END 2023-11-04 14:25 | DRG 698 ==
LOC: ED 11:31 → SUATTDRO 15:56 → 2N 15:56

== ENCOUNTER 2023-11-09 14:04 | Inpatient (IN) ==
--- NOTE | 2023-11-09 15:23 | Emergency Department Note ---
Impression & Plan Dyspnea, Pulmonary edema, Elevated troponin, Abnormal LFTs ED Provider Note ED Provider Note NAME: CHETNA CHARLTON AGE:73 SEX: Male : 1950 ARRIVES VIA: EMS INFORMANT: Patient ED PROVIDER(s): Heena Coleman DO CHIEF COMPLAINT: Increased shortness of breath HPI: This is a 73-year-old male brought in by EMS from a local facility as patient states he had increased shortness of breath over the last 2 to 3 days. Patient states he also has blood in his nephrostomy tube but states that is been present for a week. Patient states he does have a history of COPD. He states he does take a water pill daily to help prevent swelling. He denies any other recent change in medications although upon further questioning and review of his MAR at bedside, patient does recall being started on antibiotic for UTI. He states he has had UTIs previously. Patient states he takes Eliquis to prevent blood clots. Paperwork accompanying him from the facility also notes a history of atrial fibrillation. PAST MEDICAL HISTORY:See Below PAST SURGICAL HISTORY:See Below FAMILY HISTORY:See Below SOCIAL HISTORY:See Below HOME MEDICATIONS:See Below ALLERGIES:See Below VITALS:See Below PHYSICAL EXAMINATION: GENERAL: alert, well appearing, well nourished, no distress, non-toxic EYE EXAM: normal conjunctiva, PERRL and EOM's grossly intact OROPHARYNX: no exudate, no erythema, lips, buccal mucosa, and tongue normal and mucous membranes are moist NECK: supple, no nuchal rigidity, no adenopathy, non-tender LUNGS: Clear to auscultation. Normal chest wall mechanics, no w/r/r HEART: no murmurs, S1 normal and S2 normal ABDOMEN: abdomen soft, non-tender, normo-active bowel sounds, no masses, no rebound or guarding. Left-sided nephrostomy tube in the left flank. Gross blood noted in tubing and bag. BACK: Back is symmetrical on inspection and there is no deformity, no midline tenderness, no CVA tenderness. SKIN: no rashes, petechiae, orbruising UPPER EXTREMITIES: upper extremities are grossly normal. FROM, nml pulses b/l. LOWER EXTREMITIES: No pitting edema. FROM, nml pulses b/l. Right BKA with well-healed stump. NEURO EXAM: Normal sensorium, cranial nerves II-XII grossly intact, normal speech, no facial droop,nogross weakness of arms, no gross weakness of legs. Gross sensation intact. No ataxia. Vital Signs: reviewed and remarkable Differential Diagnosis: Pulmonary edema, pneumonia, viral syndrome, COPD exacerbation, ACS, pleural effusion, noncompliance, as well as others were considered MEDICAL DECISION MAKING: This is a 73-year-old male presents emergency department due to increased shortness of breath. Patient typically wears 3 L/min via nasal cannula but was quickly transitioned to BiPAP due to persistent hypoxia and increased work of breathing. Patient reported feeling markedly better while on BiPAP. He was afebrile vital signs stable. He was noted to be tachycardic and in A-fib on EKG. He does have a history of A-fib. Patient denied any other evolving URI symptoms. Patient initially reported he was still taking his daily diuretic however after further review he stated he was not taking that. He does state he was started on antibiotic for recent UTI. Patient with a chronic left nephrostomy tube. It was noted during his most recent prior admission that he had gross hematuria, this is still present. Per MAR sent with from facility, he has been on ciprofloxacin twice daily for several days already. Labs drawn and sent, IV established, EKG and chest x-ray performed bedside interpreted by me and patient monitored on telemetry. Patient continued to be well-appearing while on BiPAP. IV Lasix was added. Patient noted to have significant leukocytosis which appears to be uptrending over the last month. Leukocytosis today similar to that at the end of his most recent hospitalization. On review of EMR, prior mention of possible CLL. Given patient is from a facility, already on antibiotics for presumed UTI, and presents here with worsening symptoms, I did discuss addition of a blood culture as well as additional IV antibiotics with the ED pharmacist who was in agreement. IV Zosyn was added. Patient noted to have an elevated troponin however this is downtrending compared to prior. He was also noted to have abnormal LFTs however these are improved compared to prior additionally. Given complicated past medical history, recent admission, concerning lab findings, and need for additional BiPAP for dyspnea today, case discussed with the hospitalist team for additional evaluation and management. Consultation(s): 1653: Discussed with [facility] hospitalist team. Patient will be admitted under Dr. Rouse. ER Treatment Provided: See below Diagnostics Interpreted By Me: -ECG: Atrial fibrillation with a rate of 106, normal axis, normal intervals, PVC noted, nonspecific ST/T wave changes -Cardiac Monitoring: An order was placed for continuous cardiac monitoring. The monitor shows a rate of 101 with atrial fibrillation rhythm. -Laboratory studies: As stated above and show below. -Imaging studies: cxr: Cardiomegaly noted, pulmonary edema noted, pacemaker noted, sternotomy wires noted, no focal consolidation Triage Nursing Note Reviewed Prior/Outside Records Reviewed -discharge summary from 11/04/2023 Critical Care: Critical care of 42 min performed to assess and manage high likelihood of life- threatening acute hypoxic respiratory failure, involving labs and imaging performed with assessment to evaluate acute hypoxic respiratory failure diagnosis with frequent reassessment. This time includes bedside time, treatment discussions with patient/family/consultants, documentation time and excludes procedure time. Past Med/Surg History Problem List (Updated 11/09/23 @ 22:33 by Heena Coleman DO) Abnormal LFTs (Acute) Elevated troponin (Acute) Pulmonary edema (Acute) Acute on chronic systolic CHF (congestive heart failure) Dyspnea (Acute) Cellulitis of foot, left (Acute) Demand ischemia of myocardium (Acute) Elevated LFTs (Acute) Acute UTI NYLA (acute kidney injury) Nephrostomy complication (Acute) Encounter for pre-operative examination Right shoulder pain (Acute) Osteoarthritis of left knee Left knee pain Gangrene of right foot 07/18/23 Diabetic foot ulcer (Acute) Pelvic lymphadenopathy Acute gout 12/30/22 Valvular heart disease Gross hematuria Medical History On home oxygen therapy 3L via continuous Osteoarthritis long term resident resident of [facility] Diabetic foot ulcer Gout Pulmonary hypertension Tricuspid regurgitation Mitral regurgitation Dehiscence of wound CKD (chronic kidney disease) stage 3, GFR 30-59 ml/min Atrial fibrillation On Eliquis s/p ablation 2017 Bladder carcinoma bcg treatments Fall Peripheral arterial disease Chronic respiratory failure with hypoxia ICD (implantable cardioverter-defibrillator) in place 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, Implant date 10/05/2021 Ischemic cardiomyopathy ICD 09/2021 CAD (coronary artery disease) CABG x 2 07/2016 Angioplasty 1996 CLL (chronic lymphocytic leukemia) known hx x years Diabetes mellitus, type 2 NIDDM SOB (shortness of breath) History of cellulitis Right Great toe- completed antibiotics Swelling and erythema significantly improved but still has mild pain (improved from previous) CHF (congestive heart failure) followed by Dr. Ortega Dyslipidemia History of gout Hard of hearing No hearing aids Myocardial Infarction 1996 & 2016 Chronic obstructive pulmonary disease 3L via continuous Surgical History Nephrostomy status S/P below knee amputation History of bladder surgery TURBT History of anesthesia reaction slow to wake History of bone marrow biopsy Right node Lymph node biopsy (04/23/23)- CLL/SLL, negative for metastatic carcinoma History of colonoscopy H/O wisdom tooth extraction History of tonsillectomy History of adenoidectomy History of cataract surgery bilateral S/P ICD (internal cardiac defibrillator) procedure Implanted 2021>last checked February 2022 ? type S/P ablation of atrial fibrillation S/P angioplasty no stents S/P CABG x 2 2016 Family History Other No family history of adverse response to anesthesia Social History Smoking Status: Never smoker Tobacco Type: Cigarettes Cigarettes Per Day: 1-2 PPD; Second Hand Exposure: No; Do You Dip or Chew Tobacco: No; Hx Alcohol Use: No Hx Substance Use: No Preferred Language: Swedish Communication Ability: Effective Applications Sales Consultant Required: No Beliefs That Will Affect Care: None Current Living Situation: Personal Care Facility Current Living Situation Comment: [facility] Feels Safe at Home: Yes Assistive Devices: Wheelchair Allergies Allergies Allergy/AdvReac Type Severity Reaction Status Date / Time enalapril Allergy Severe Angioedema Verified 11/09/23 16:59 brimonidine [From Combigan] Allergy Intermediate Hives Verified 11/09/23 16:59 timolol Allergy Intermediate Hives Verified 11/09/23 16:59 Home Meds Home Medications Medication Instructions Recorded Confirmed aspirin 81 mg tablet,delayed 81 mg PO QAM 11/01/22 11/09/23 release atorvastatin 40 mg tablet 40 mg PO HS 11/01/22 11/09/23 budesonide 160 mcg-glycopyr 9 2 inh inhalation BID 11/01/22 11/09/23 mcg-formot 4.8 mcg/actuation HFA inhaler (Breztri Aerosphere) calcium carbonate 600 mg PO QAM 11/01/22 11/09/23 cyanocobalamin (vitamin B-12) 1,000 mcg PO QAM 11/01/22 11/09/23 1,000 mcg tablet empagliflozin 10 mg tablet 10 mg PO QAM 11/01/22 11/09/23 (Jardiance) ferrous sulfate 27 mg iron tablet 27 mg PO QAM 11/01/22 11/09/23 psyllium husk 3.4 gram/5.4 gram 1 tbsp PO QAM 11/01/22 11/09/23 oral powder (Metamucil) apixaban 5 mg tablet (Eliquis) 5 mg PO BIDM 05/03/23 11/09/23 multivitamin 1 tab PO QAM 07/09/23 11/09/23 bisacodyl 10 mg rectal suppository 10 mg [place] DAILY PRN constipation 10/16/23 11/09/23 duloxetine 30 mg capsule,delayed 30 mg PO QAM 10/16/23 11/09/23 release sprinkle gabapentin 100 mg capsule 100 mg PO TID 10/16/23 11/09/23 guaifenesin 400 mg tablet 400 mg PO Q8H PRN Congestion 10/16/23 11/09/23 magnesium hydroxide 400 mg/5 mL 30 ml PO DAILY PRN NO BM 3 DAYS 10/16/23 11/09/23 oral suspension (Milk of Magnesia) melatonin 3 mg tablet 3 mg PO HS Sleep 10/16/23 11/09/23 metoprolol succinate 25 mg 25 mg PO QPM 10/16/23 11/09/23 tablet,extended release 24 hr oxycodone 5 mg tablet 5 mg PO Q6H PRN Pain 10/16/23 11/09/23 ropinirole 0.25 mg tablet 0.25 mg PO HS 10/16/23 11/09/23 spironolactone 25 mg tablet 25 mg PO QAM 10/16/23 11/09/23 Gelatein 20 1 ea PO BIDM 11/01/23 11/09/23 acetaminophen 325 mg tablet 650 mg PO Q6H PRN PAIN/FEVER 11/01/23 11/09/23 (Tylenol) furosemide 20 mg tablet (Lasix) 20 mg PO QAM 11/01/23 11/09/23 sodium chloride 0.9 % 20 ml TID 11/01/23 11/09/23 Diabetic Shake 1 can PO BIDM 11/09/23 11/09/23 ciprofloxacin HCl 500 mg tablet 500 mg PO DAILY 11/09/23 11/09/23 (Cipro) nitroglycerin 0.4 mg sublingual 0.4 mg sublingual DIRECTED PRN 11/09/23 11/09/23 tablet (Nitrostat) Chest Pain sodium chloride 0.65 % nasal spray 2 spray intranasal Q8H PRN Dry 11/09/23 11/09/23 aerosol (Saline Nasal) Nasal Passages Previous Rx's Medication Instructions Recorded diclofenac sodium 1 % topical gel 4 g EXT TID #100 grams 09/13/23 (Voltaren Arthritis Pain) Results & Data (ED) Vital Signs Vital Signs - 24 hr 11/09/23 14:13 11/09/23 14:13 11/09/23 14:13 Temperature 36.6 C Temperature Source Axillary Pulse Rate 94 H Pulse Rate from SpO2 Sensor Respiratory Rate 21 Respiratory Effort / Characteristics Spontaneous Labored Short of Breath Spontaneous Short of Breath Respiratory Depth Deep Deep Respiratory Pattern Regular Regular Blood Pressure 118/85 Blood Pressure Mean 96 Blood Pressure Position Lying Pulse Oximetry 97 100 Oxygen Delivery Method CPAP CPAP CPAP Fraction of Inspired Oxygen Sepsis Recent Fever Within 48 Hours No Sepsis New/Unexplained Change in Mental Status N/A Sepsis Action Taken by Nursing No Action Required 11/09/23 14:14 11/09/23 14:19 11/09/23 15:01 Temperature Temperature Source Pulse Rate 95 H 102 H Pulse Rate from SpO2 Sensor Respiratory Rate 21 Respiratory Effort / Characteristics Non-Labored Spontaneous Respiratory Depth Normal Respiratory Pattern Regular Blood Pressure 138/105 H Blood Pressure Mean 119 Blood Pressure Position Pulse Oximetry 99 Oxygen Delivery Method Fraction of Inspired Oxygen 40 Sepsis Recent Fever Within 48 Hours Sepsis New/Unexplained Change in Mental Status Sepsis Action Taken by Nursing 11/09/23 15:03 11/09/23 15:39 11/09/23 16:00 Temperature Temperature Source Pulse Rate 105 H 113 H 106 H Pulse Rate from SpO2 Sensor 110 H 115 H 112 H Respiratory Rate 17 28 H 15 Respiratory Effort / Characteristics Respiratory Depth Respiratory Pattern Blood Pressure Blood Pressure Mean Blood Pressure Position Pulse Oximetry 90 91 79 L Oxygen Delivery Method Fraction of Inspired Oxygen Sepsis Recent Fever Within 48 Hours Sepsis New/Unexplained Change in Mental Status Sepsis Action Taken by Nursing 11/09/23 16:02 11/09/23 16:18 11/09/23 16:31 Temperature Temperature Source Pulse Rate 107 H Pulse Rate from SpO2 Sensor 113 H Respiratory Rate 29 H Respiratory Effort / Characteristics Respiratory Depth Respiratory Pattern Blood Pressure 157/127 H 151/120 H Blood Pressure Mean 133 131 Blood Pressure Position Pulse Oximetry 83 L Oxygen Delivery Method Fraction of Inspired Oxygen Sepsis Recent Fever Within 48 Hours Sepsis New/Unexplained Change in Mental Status Sepsis Action Taken by Nursing 11/09/23 16:48 11/09/23 17:00 11/09/23 17:00 Temperature Temperature Source Pulse Rate 97 H Pulse Rate from SpO2 Sensor 111 H Respiratory Rate 22 Respiratory Effort / Characteristics Respiratory Depth Respiratory Pattern Blood Pressure Blood Pressure Mean 31 31 Blood Pressure Position Pulse Oximetry 84 L Oxygen Delivery Method Fraction of Inspired Oxygen Sepsis Recent Fever Within 48 Hours Sepsis New/Unexplained Change in Mental Status Sepsis Action Taken by Nursing 11/09/23 17:00 11/09/23 17:00 Temperature Temperature Source Pulse Rate 104 H Pulse Rate from SpO2 Sensor 122 H Respiratory Rate 33 H Respiratory Effort / Characteristics Respiratory Depth Respiratory Pattern Blood Pressure Blood Pressure Mean 31 Blood Pressure Position Pulse Oximetry 80 L Oxygen Delivery Method Fraction of Inspired Oxygen Sepsis Recent Fever Within 48 Hours Sepsis New/Unexplained Change in Mental Status Sepsis Action Taken by Nursing Laboratory Data 11/09/23 14:20 11/09/23 16:31 Lab Results 11/09/23 11/09/23 Range/Units 14:20 16:31 WBC 25.21 H (4.8-10.8) K/ul RBC 3.40 L (4.70-6.10) M/uL Hgb 11.4 L (14.0-18.0) g/dl Hct 36.3 L (42.0-52.0) % MCV 106.8 H (80.0-100.0) fL MCH 33.5 (25.0-34.0) pg MCHC 31.4 L (32.0-36.0) g/dL RDW Std Deviation 64.3 H (36.4-46.3) fL RDW Coeff of Sharmaine 16.8 H (11.5-14.5) % Plt Count 379 (130-400) K/uL MPV 11.7 (9.4-12.4) fL Immature Gran % (Auto) 1.1 % Neut % (Auto) 50.2 % Lymph % (Auto) 43.0 % [place] % (Auto) 4.8 % Eos % (Auto) 0.6 % Baso % (Auto) 0.3 % Neut # (Auto) 12.63 H (1.40-6.50) K/uL Lymph # (Auto) 10.85 H (1.20-3.40) K/uL [place] # (Auto) 1.22 H (0.11-0.59) K/uL Eos # (Auto) 0.16 (0.00-0.50) K/uL Baso # (Auto) 0.08 (0.00-0.20) K/uL Immature Gran # (Auto) 0.27 H (0.01-0.20) K/uL Absolute Nucleated RBC 0.03 (0.00-0.12) K/uL Nucleated RBC % (auto) 0.1 % PT 14.0 H (9.0-12.0) Seconds INR 1.3 H (0.9-1.1) Sodium 134 L (136-145) mmol/L Potassium TNP 4.8 Chloride 98 (98-107) mmol/L Carbon Dioxide 27 (21-32) mmol/L Anion Gap 9 (3-11) BUN 44 H (6-23) mg/dl Creatinine 1.15 (0.6-1.4) mg/dl Est Cr Clr Drug Dosing 50.9 ml/min Est GFR ( Amer) 72.3 ml/min Est GFR (Non-Af Amer) 62.3 ml/min BUN/Creatinine Ratio 38.3 H (10-20) Glucose 110 H (70-99(Fasting)) mg/dl Lactate 2.1 H* (0.4-2.0) mmol/L Calcium 10.3 (8.6-10.3) mg/dl Magnesium 2.2 (1.7-2.4) mg/dl Total Bilirubin 0.9 (0.2-1.0) mg/dl AST TNP 73 H ALT 465 H (7-52) U/L Alkaline Phosphatase 174 H (34-104) U/L Troponin I High Sens 57.6 H* (0-20) pg/ml Total Protein 7.0 (6.0-8.3) gm/dl Albumin 3.7 (3.4-5.0) gm/dl Globulin 3.3 (2.5-4.0) gm/dl Albumin/Globulin Ratio 1.1 (0.9-2) Lipase 41 (11-82) U/L TSH 6.811 H (0.300-4.500) uIu/ml Free T4 0.92 (0.61-1.60) ng/dl Administered Medications Atorvastatin Calcium (Atorvastatin 40 Mg Tab) 40 mg PO PM EMILEE Stop: 12/09/23 20:59 Last Admin: 11/09/23 21:18 Dose: 40 mg Documented By: RUPA Diclofenac Sodium (Diclofenac Sod 1% Gel 100 Gm Tube) 4 gm EXT TID EMILEE; Protocol Stop: 12/09/23 20:59 Last Admin: 11/09/23 21:20 Dose: 4 gm Documented By: RUPA Furosemide (Furosemide 40 Mg/4 Ml Vial) 40 mg IV DAILY EMILEE Stop: 12/09/23 19:59 Last Admin: 11/09/23 21:19 Dose: 40 mg Documented By: RUPA Gabapentin (Gabapentin 100 Mg Cap) 100 mg PO TID EMILEE Stop: 12/09/23 20:59 Last Admin: 11/09/23 21:18 Dose: 100 mg Documented By: RUPA Insulin Aspart (Insulin Aspart Per Unit Charge) 0 units SC ACHS EMILEE Stop: 12/09/23 20:59 Last Admin: 11/09/23 21:21 Dose: Not Given Documented By: RUPA Melatonin (Melatonin 3 Mg Tab) 3 mg PO HS EMILEE Stop: 12/09/23 20:59 Last Admin: 11/09/23 21:20 Dose: 3 mg Documented By: RUPA Metoprolol Succinate (Metoprolol Succ 25mg Ext Rel Tab) 25 mg PO QPM EMILEE Stop: 12/09/23 20:59 Last Admin: 11/09/23 21:17 Dose: 25 mg Documented By: RUPA Discontinued Medications Furosemide (Furosemide Inj 20 Mg/2 Ml Vial) 20 mg IV ONE ONE Stop: 11/09/23 15:58 Last Admin: 11/09/23 17:05 Dose: 20 mg Documented By: OMID Piperacillin Sod/Tazobactam Sod (Zosyn) 4.5 gm in 100 mls @ 200 mls/hr IV NOW ONE Stop: 11/09/23 16:30 Last Infusion: 11/09/23 18:04 Dose: Infused Documented By: Admin: 11/09/23 17:05 Dose: 200 mls/hr Documented By: OMID Imaging Data Radiologist's Impression: Chest X-Ray 11/09/23 15:12 XR chest 1V portable HISTORY: Shortness of breath. COMPARISON: Chest 11/01/2023. FINDINGS: No pneumothorax. No pleural effusions. No new focal lung consolidations to suggest a pneumonia. The cardiac silhouette is mildly enlarged. There is a left-sided pacemaker/defibrillator. Poststernotomy changes again noted. Calcifications within the aortic knob. Progressive interstitial/vascular thickening consistent with mild pulmonary edema. IMPRESSION: Cardiomegaly with mild interstitial pulmonary edema. This has slightly progressed in the interval. ACT 112: Negative or not required by law. Electronically signed by: Jeramy Millard M.D. 11/09/2023 3:51 PM Discharge Plan Visit Data Chief Complaint: Respiratory Problems ED Provider: Heena Coleman Discharge Problem: Dyspnea, Pulmonary edema, Elevated troponin, Abnormal LFTs Patient Disposition: Admitted As Inpatient Discharge Instructions Interventions: ED Discharge Assessment Last Done: 11/09/23 20:03
[2023-11-09 15:42] LABS: Hematocrit (blood only) 36.3 % (42.0-52.0); Hemoglobin 11.4 g/dl (14.0-18.0); Mean Corpuscular Hemoglobin 33.5 pg (25.0-34.0); Mean Corpuscular Hgb Conc 31.4 g/dL (32.0-36.0); Mean Corpuscular Volume 106.8 fL (80.0-100.0); Mean Platelet Volume 11.7 fL (9.4-12.4); Nucleated RBC # (auto) 0.03 K/uL (0.00-0.12); Nucleated RBC % (auto) 0.1 %; Platelet Count 379 K/uL (130-400); RDW Coefficient of Variation 16.8 % (11.5-14.5); RDW Standard Deviation 64.3 fL (36.4-46.3); White Blood Count 25.21 K/ul (4.8-10.8)
--- NOTE | 2023-11-09 15:52 | XRay Report ---
XR chest 1V portable HISTORY: Shortness of breath. COMPARISON: Chest 11/01/2023. FINDINGS: No pneumothorax. No pleural effusions. No new focal lung consolidations to suggest a pneumo pan. The cardiac silhouette is mildly enlarged. There is a left-sided pacemaker/defibrillator. Postst ernotomy changes again noted. Calcifications within the aortic knob. Progressive interstitial/vascula r thickening consistent with mild pulmonary edema. IMPRESSION: Cardiomegaly with mild interstitial pulmonary edema. This has slightly progressed in the interval. ACT 112: Negative or not required by law. Electronically signed by: Jeramy Millard M.D. 11/09/2023 3:51 PM
[2023-11-09 16:09] LABS: INR 1.3 (0.9-1.1)
[2023-11-09 16:10] LABS: Alanine Aminotransferase 465 U/L (7-52); Albumin Globulin Ratio 1.1 (0.9-2); Albumin Level 3.7 gm/dl (3.4-5.0); Alkaline Phosphatase 174 U/L (34-104); Anion Gap 9 (3-11); BUN Creatinine Ratio 38.3 (10-20); Bilirubin,Total 0.9 mg/dl (0.2-1.0); Blood Urea Nitrogen 44 mg/dl (6-23); Calcium 10.3 mg/dl (8.6-10.3); Carbon Dioxide 27 mmol/L (21-32); Chloride 98 mmol/L (98-107); Creatinine Clr Calc Pharmacy 50.9 ml/min; Est GFR (African American) 72.3 ml/min; Est GFR (Non-African American) 62.3 ml/min; Globulin 3.3 gm/dl (2.5-4.0); Glucose 110 mg/dl (70-99(Fasting)); Lipase 41 U/L (11-82); Magnesium 2.2 mg/dl (1.7-2.4); Sodium 134 mmol/L (136-145); Troponin I High Sensitivity 57.6 pg/ml (0-20)
[2023-11-09 16:12] LABS: Thyroid Stimulating Hormone 6.811 uIu/ml (0.300-4.500)
[2023-11-09 16:20] LABS: Basophils # (auto) 0.08 K/uL (0.00-0.20); Basophils % (auto) 0.3 %; Eosinophils # (auto) 0.16 K/uL (0.00-0.50); Eosinophils % (auto) 0.6 %; Immature Granulocytes # (auto) 0.27 K/uL (0.01-0.20); Immature Granulocytes % (auto) 1.1 %; Lymphocytes # (auto) 10.85 K/uL (1.20-3.40); Monocytes # (auto) 1.22 K/uL (0.11-0.59); Monocytes % (auto) 4.8 %; Neutrophils # (auto) 12.63 K/uL (1.40-6.50); Neutrophils % (auto) 50.2 %
[2023-11-09 16:50] LABS: T4 Free Thyroxine 0.92 ng/dl (0.61-1.60)
[2023-11-09] MEDS: FUROSEMIDE INJ 20 MG/2 ML VIAL IV ONE (17:05)
[2023-11-09] MEDS: PIPERACILLIN/TAZOBACTAM 4.5 GM/100 ML BAG IV ONE (17:05)
[2023-11-09 17:10] LABS: Potassium 4.8 mmol/L (3.5-5.1)
--- NOTE | 2023-11-09 17:19 | History & Physical Report ---
Date of Service November 09, 2023 Assessment & Plan (1) Acute on chronic systolic CHF (congestive heart failure): Plan: Patient has a history of ischemic cardiomyopathy, last echo done 09/11/2023 showed ejection fraction 20 to 25%. Status post ICD. Also has a history of moderate mitral and tricuspid regurgitation and severe pulmonary hypertension Presents from [place] with worsening shortness of breath. Chest x-ray showed evidence of pulmonary congestion. Will obtain BNP Start IV Lasix 40 mg daily Monitor input and output, daily weights (2) Nephrostomy complication: Plan: Patient has had problems with nephrostomy malfunction in the past and has always had some blood in the past few days During his last hospital stay, his nephrostomy tubes seem to be draining well. Outpatient, he was scheduled for antegrade nephrostomy study with possible conversion to a stent this November Will find out if urology plans to do the procedure while he is inpatient. (3) Chronic respiratory failure with hypoxia: Plan: Patient is chronically on 3 L oxygen at home Will continue. (4) Ischemic cardiomyopathy: Plan: History of ischemic cardiomyopathy, ejection fraction 20 to 25% status post ICD Continue home medications (5) CKD (chronic kidney disease) stage 3, GFR 30-59 ml/min: Plan: Stable renal function Avoid nephrotoxic's. (6) Cellulitis of foot, left: Plan: Diabetic foot ulcer: Chronic left toes 3-5 affected with cellulitis During his last hospital stay, completed a course of IV antibiotics Will consult wound care for continued wound management. (7) Atrial fibrillation: Plan: Atrial fibrillation: Exam permanent A-fib rate controlled Will hold anticoagulation on account of some blood in urine (8) CLL (chronic lymphocytic leukemia): Plan: Chronically elevated WBC No evidence of infection Continue to monitor not on treatment for CLL. (9) Diabetes mellitus, type 2: Plan: Blood glucose under good control On Jardiance at home, will hold Start insulin sliding scale Plan Admit to [facility] telemetry Full code History of Present Illness Chief Complaint: Shortness of breath Primary Care Provider: Michaela Lin Is a 73-year-old male resident of [place] with a history of right BKA, atrial fibrillation on Eliquis, COPD on home oxygen, left nephrostomy, CAD, ischemic cardiomyopathy status post ICD, type 2 diabetes, who was brought from [place] today on account of worsening shortness of breath. Patient was discharged from this facility on November 04, 2023 after he was treated and managed for acute UTI and also nephrostomy complication with hematuria. According to the patient, even since discharge he has also had some blood in the urine bag however the reason he came to the hospital today was because of worsening shortness of breath. Here in the emergency department chest x-ray was done which showed evidence of pulmonary congestion. He has been started on IV Lasix and will be admitted to the hospital further management. Allergies Allergy/AdvReac Type Severity Reaction Status Date / Time enalapril Allergy Severe Angioedema Verified 11/09/23 16:59 brimonidine [From Combigan] Allergy Intermediate Hives Verified 11/09/23 16:59 timolol Allergy Intermediate Hives Verified 11/09/23 16:59 Home Medications Medication Instructions Recorded Confirmed Type aspirin 81 mg tablet,delayed 81 mg PO QAM 11/01/22 11/09/23 History release atorvastatin 40 mg tablet 40 mg PO HS 11/01/22 11/09/23 History budesonide 160 mcg-glycopyr 9 2 inh inhalation BID 11/01/22 11/09/23 History mcg-formot 4.8 mcg/actuation HFA inhaler (Breztri Aerosphere) calcium carbonate 600 mg PO QAM 11/01/22 11/09/23 History cyanocobalamin (vitamin B-12) 1,000 mcg PO QAM 11/01/22 11/09/23 History 1,000 mcg tablet empagliflozin 10 mg tablet 10 mg PO QAM 11/01/22 11/09/23 History (Jardiance) ferrous sulfate 27 mg iron tablet 27 mg PO QAM 11/01/22 11/09/23 History psyllium husk 3.4 gram/5.4 gram 1 tbsp PO QAM 11/01/22 11/09/23 History oral powder (Metamucil) apixaban 5 mg tablet (Eliquis) 5 mg PO BIDM 05/03/23 11/09/23 History multivitamin 1 tab PO QAM 07/09/23 11/09/23 History diclofenac sodium 1 % topical gel 4 g EXT TID #100 grams 09/13/23 11/09/23 Rx (Voltaren Arthritis Pain) bisacodyl 10 mg rectal suppository 10 mg MT DAILY PRN constipation 10/16/23 11/09/23 History duloxetine 30 mg capsule,delayed 30 mg PO QAM 10/16/23 11/09/23 History release sprinkle gabapentin 100 mg capsule 100 mg PO TID 10/16/23 11/09/23 History guaifenesin 400 mg tablet 400 mg PO Q8H PRN Congestion 10/16/23 11/09/23 History magnesium hydroxide 400 mg/5 mL 30 ml PO DAILY PRN NO BM 3 DAYS 10/16/23 11/09/23 History oral suspension (Milk of Magnesia) melatonin 3 mg tablet 3 mg PO HS Sleep 10/16/23 11/09/23 History metoprolol succinate 25 mg 25 mg PO QPM 10/16/23 11/09/23 History tablet,extended release 24 hr oxycodone 5 mg tablet 5 mg PO Q6H PRN Pain 10/16/23 11/09/23 History ropinirole 0.25 mg tablet 0.25 mg PO HS 10/16/23 11/09/23 History spironolactone 25 mg tablet 25 mg PO QAM 10/16/23 11/09/23 History Gelatein 20 1 ea PO BIDM 11/01/23 11/09/23 History acetaminophen 325 mg tablet 650 mg PO Q6H PRN PAIN/FEVER 11/01/23 11/09/23 History (Tylenol) furosemide 20 mg tablet (Lasix) 20 mg PO QAM 11/01/23 11/09/23 History sodium chloride 0.9 % 20 ml TID 11/01/23 11/09/23 History Diabetic Shake 1 can PO BIDM 11/09/23 11/09/23 History ciprofloxacin HCl 500 mg tablet 500 mg PO DAILY 11/09/23 11/09/23 History (Cipro) nitroglycerin 0.4 mg sublingual 0.4 mg sublingual DIRECTED PRN 11/09/23 11/09/23 History tablet (Nitrostat) Chest Pain sodium chloride 0.65 % nasal spray 2 spray intranasal Q8H PRN Dry 11/09/23 11/09/23 History aerosol (Saline Nasal) Nasal Passages Past Med/Surg History Problem List (Updated 11/09/23 @ 17:21 by Joe Rouse MD) Acute on chronic systolic CHF (congestive heart failure) Dyspnea (Acute) Cellulitis of foot, left (Acute) Demand ischemia of myocardium (Acute) Elevated LFTs (Acute) Acute UTI NYLA (acute kidney injury) Nephrostomy complication (Acute) Encounter for pre-operative examination Right shoulder pain (Acute) Osteoarthritis of left knee Left knee pain Gangrene of right foot 07/18/23 Diabetic foot ulcer (Acute) Pelvic lymphadenopathy Acute gout 12/30/22 Valvular heart disease Gross hematuria Medical History On home oxygen therapy 3L via continuous Osteoarthritis group home resident resident of [facility] Diabetic foot ulcer Gout Pulmonary hypertension Tricuspid regurgitation Mitral regurgitation Dehiscence of wound CKD (chronic kidney disease) stage 3, GFR 30-59 ml/min Atrial fibrillation On Eliquis s/p ablation 2017 Bladder carcinoma bcg treatments Fall Peripheral arterial disease Chronic respiratory failure with hypoxia ICD (implantable cardioverter-defibrillator) in place 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 email specialist, Implant date 10/05/2021 Ischemic cardiomyopathy ICD 09/2021 CAD (coronary artery disease) CABG x 2 07/2016 Angioplasty 1996 CLL (chronic lymphocytic leukemia) known hx x years Diabetes mellitus, type 2 NIDDM SOB (shortness of breath) History of cellulitis Right Great toe- completed antibiotics Swelling and erythema significantly improved but still has mild pain (improved from previous) CHF (congestive heart failure) followed by Dr. Ortega Dyslipidemia History of gout Hard of hearing No hearing aids Myocardial Infarction 1996 & 2016 Chronic obstructive pulmonary disease 3L via continuous Surgical History Nephrostomy status S/P below knee amputation History of bladder surgery TURBT History of anesthesia reaction slow to wake History of bone marrow biopsy Right node Lymph node biopsy (04/23/23)- CLL/SLL, negative for metastatic carcinoma History of colonoscopy H/O wisdom tooth extraction History of tonsillectomy History of adenoidectomy History of cataract surgery bilateral S/P ICD (internal cardiac defibrillator) procedure Implanted 2021>last checked February 2022 ? type S/P ablation of atrial fibrillation S/P angioplasty no stents S/P CABG x 2 2016 Family History Other No family history of adverse response to anesthesia Social History Smoking Status: Never smoker Tobacco Type: Cigarettes Cigarettes Per Day: 1-2 PPD; Second Hand Exposure: No; Do You Dip or Chew Tobacco: No; Hx Alcohol Use: No Hx Substance Use: No Preferred Language: [place]agu[place] Communication Ability: Effective Pyrotechnician Required: No Beliefs That Will Affect Care: None Current Living Situation: Personal Care Facility Current Living Situation Comment: Michaela Lin Feels Safe at Home: Yes Assistive Devices: Wheelchair Review of Systems Review of Systems: All systems reviewed are negative, apart from the ones contained in the history. Physical Exam Physical Exam: The patient is awake, alert and oriented 3, well developed and well nourished, normocephalic and atraumatic, lying in bed and in no acute distress. HEENT--PERRL, EOMI, mucous membranes and oropharynx mildly dry Neck--supple. No JVD. No bruits. Thyroid normal, trachea midline, no adenopathy. Heart--normal S1 and S2. No murmurs, rubs or gallops. Lungs--clear bilaterally, no respiratory distress, no accessory muscle use. Abdomen--normal bowel sounds and soft. Extremities--Right below the knee amputation Dermatologic--normal skin turgor, normal color, no abnormal lymph nodes, no rash. Neurologic--cranial nerves II through XII grossly intact. Rheumatologic--normal range of motion. Psychiatric--normal affect. Results & Data Results & Data Vital Signs (Past 12 Hours) Vital Signs Temp Pulse Resp BP Pulse Ox O2 Del Method FiO2 11/09/23 14:19 102 H 11/09/23 14:14 95 H 21 99 40 11/09/23 14:13 100 CPAP 11/09/23 14:13 97.9 F 94 H 21 118/85 97 CPAP 11/09/23 14:13 CPAP PG Care Time/CCT Total # of Minutes Spent Total Time Spent with Patient: Total time spent is greater than 50% in coordination of care (as documented) at patient's floor/unit and/or counseling patient: Coding Level of Care Code 27392 INT INP/OBS CARE 3/75MIN Diagnoses Acute on chronic systolic CHF (congestive heart failure) I50.23 Nephrostomy complication N99.528 Chronic respiratory failure with hypoxia J96.11 Ischemic cardiomyopathy I25.5 CKD (chronic kidney disease) stage 3, GFR 30-59 ml/min N18.30 Cellulitis of foot, left L03.116 Atrial fibrillation I48.91 CLL (chronic lymphocytic leukemia) C91.10 Diabetes mellitus, type 2 E11.9 Time Spent (min) 75
--- NOTE | 2023-11-09 19:05 | Electrocardiogram Report ---
Test Reason : Blood Pressure : / mmHG Vent. Rate : 106 BPM Atrial Rate : 000 BPM P-R Int : 000 ms QRS Dur : 104 ms QT Int : 352 ms P-R-T Axes : 000 011 247 degrees QTc Int : 467 ms Atrial fibrillation with rapid ventricular response with premature ventricular or aberrantly conducte d complexes Inferior infarct , age undetermined Anterior infarct , age undetermined Abnormal ECG When compared with ECG of 01-NOV-2023 11:37, Inferior infarct is now Present Confirmed by Be Gavin ([id number]) on 11/09/2023 7:05:24 PM [facility] Confirmed By:Be Gavin
[2023-11-09] MEDS ORDERED: bisacodyL 10 MG SUPP PR PRN (19:46)
[2023-11-09] MEDS ORDERED: NON-FORMULARY MEDICATION (Budesonide-Glycopyr-Formoterol [Breztri Aerosphere] 160-9-4.8 mc INH SCH (21:00)
[2023-11-09] MEDS: METOPROLOL SUCC 25MG EXT REL TAB PO SCH (21:17)
[2023-11-09] MEDS: GABAPENTIN 100 MG CAP PO SCH (21:18)
[2023-11-09] MEDS: ATORVASTATIN 40 MG TAB PO SCH (21:18)
[2023-11-09] MEDS: FUROSEMIDE 40 MG/4 ML VIAL IV SCH (21:19)
[2023-11-09] MEDS: DICLOFENAC SOD 1% GEL 100 GM TUBE EXT SCH (21:20)
[2023-11-09] MEDS: MELATONIN 3 MG TAB PO SCH (21:20)
[2023-11-09] MEDS: INSULIN ASPART PER UNIT CHARGE SC SCH (21:21)
[2023-11-10 07:31] LABS: Hematocrit (blood only) 39.8 % (42.0-52.0); Hemoglobin 12.3 g/dl (14.0-18.0); Mean Corpuscular Hemoglobin 33.1 pg (25.0-34.0); Mean Corpuscular Hgb Conc 30.9 g/dL (32.0-36.0); Mean Platelet Volume 11.3 fL (9.4-12.4); Nucleated RBC # (auto) 0.03 K/uL (0.00-0.12); Nucleated RBC % (auto) 0.1 %; Platelet Count 385 K/uL (130-400); RDW Coefficient of Variation 16.7 % (11.5-14.5); RDW Standard Deviation 64.7 fL (36.4-46.3); Red Blood Count 3.72 M/uL (4.70-6.10); White Blood Count 27.33 K/ul (4.8-10.8)
[2023-11-10 07:51] LABS: Calcium 10.5 mg/dl (8.6-10.3); Magnesium 2.2 mg/dl (1.7-2.4); Potassium 4.9 mmol/L (3.5-5.1)
[2023-11-10 07:56] LABS: BUN Creatinine Ratio 33.1 (10-20); Creatinine Clr Calc Pharmacy 41.2 ml/min; Est GFR (Non-African American) 48.3 ml/min
[2023-11-10] MEDS: oxyCODONE HCL IR 5 MG TAB (IMMEDIATE RELEASE) PO PRN (08:54)
[2023-11-10] MEDS: FLUTICASONE FUROATE 200MCG 14 PUFFS/INHALER INH SCH (08:56)
[2023-11-10] MEDS: UMECLIDINIUM/VILANTEROL 62.5/25MCG 7 PUFFS/INHALER INH SCH (08:56)
[2023-11-10] MEDS: SPIRONOLACTONE 25 MG TAB PO SCH (08:56)
[2023-11-10] MEDS: CALCIUM CARBONATE 1250MG TAB PO SCH (08:57)
[2023-11-10] MEDS: DULoxetine HCL 30 MG CAP PO SCH (08:57)
[2023-11-10] MEDS: CYANOCOBALAMIN (B-12) 500 MCG TABLET PO SCH (08:57)
[2023-11-10] MEDS: PIPERACILLIN/TAZOBACTAM 4.5 GM in DEXTROSE 5% MINI-B 100 ML IV SCH (08:58)
[2023-11-10] MEDS ORDERED: NON-FORMULARY MEDICATION (Ferrous Sulfate 27 mg iron Tablet) PO SCH (09:00)
--- NOTE | 2023-11-10 12:30 | Hospitalist Progress Note ---
Date of Service November 10, 2023 Assessment & Plan (1) Sepsis: Plan: Questionable sepsis suspected source is from lower extremity cellulitis Elevated lactate 2.9 although WBC has been chronically elevated Will obtain blood cultures Start empiric IV Zosyn (2) Acute on chronic systolic CHF (congestive heart failure): Plan: Patient has a history of ischemic cardiomyopathy, last echo done 09/11/2023 showed ejection fraction 20 to 25%. Status post ICD. Also has a history of moderate mitral and tricuspid regurgitation and severe pulmonary hypertension Presents from [place] with worsening shortness of breath. Chest x-ray showed evidence of pulmonary congestion. BNP above 3000 Start IV Lasix 40 mg daily Monitor input and output, daily weights (3) Nephrostomy complication: Plan: Patient has had problems with nephrostomy malfunction in the past and has always had some blood in the past few days During his last hospital stay, his nephrostomy tubes seem to be draining well. Outpatient, he was scheduled for antegrade nephrostomy study with possible conversion to a stent this November Will find out if urology plans to do the procedure while he is inpatient. (4) Chronic respiratory failure with hypoxia: Plan: Patient is chronically on 3 L oxygen at home Will continue. (5) Ischemic cardiomyopathy: Plan: History of ischemic cardiomyopathy, ejection fraction 20 to 25% status post ICD Continue home medications (6) CKD (chronic kidney disease) stage 3, GFR 30-59 ml/min: Plan: Stable renal function Avoid nephrotoxic's. (7) Cellulitis of foot, left: Plan: Diabetic foot ulcer: Chronic left toes 3-5 affected with cellulitis During his last hospital stay, completed a course of IV antibiotics Will consult wound care for continued wound management. Initiate IV Zosyn (8) Atrial fibrillation: Plan: Atrial fibrillation: Exam permanent A-fib rate controlled Will hold anticoagulation on account of some blood in urine (9) CLL (chronic lymphocytic leukemia): Plan: Chronically elevated WBC No evidence of infection Continue to monitor not on treatment for CLL. (10) Diabetes mellitus, type 2: Plan: Blood glucose under good control On Jardiance at home, will hold Start insulin sliding scale (11) Abnormal LFTs: Plan: Chronically elevated, could be due to passive congestion from heart failure Monitor on continue treatment for heart failure as above. (12) Elevated troponin: Plan: Elevated troponin most likely demand ischemia due to congestive heart failure patient denies chest pain no ST changes on EKG Continue to monitor. Plan Admit to [facility] telemetry Full code Admission and Anticipated Discharge Date Admission Date: November 09, 2023 Subjective Patient seen and examined, feels about the same but shortness of breath is a little better. Review of Systems Review of Systems: All systems reviewed are negative, apart from the ones contained in the history. Physical Exam Physical Exam: The patient is awake, alert and oriented 3, well developed and well nourished, normocephalic and atraumatic, lying in bed and in no acute distress. HEENT--PERRL, EOMI, mucous membranes and oropharynx mildly dry Neck--supple. No JVD. No bruits. Thyroid normal, trachea midline, no adenopathy. Heart--normal S1 and S2. No murmurs, rubs or gallops. Lungs--clear bilaterally, no respiratory distress, no accessory muscle use. Abdomen--normal bowel sounds and soft. Extremities--Right below the knee amputation Dermatologic--normal skin turgor, normal color, no abnormal lymph nodes, no rash. Neurologic--cranial nerves II through XII grossly intact. Rheumatologic--normal range of motion. Psychiatric--normal affect. Results & Data Results & Data Vital Signs (Past 12 Hours) Vital Signs Temp Pulse Pulse Resp BP Pulse Ox O2 Del Method 11/10/23 11:11 94 Nasal Cannula 11/10/23 11:10 97.7 F 112 H 18 114/75 92 Nasal Cannula 11/10/23 08:00 119 H 11/10/23 08:00 Nasal Cannula 11/10/23 07:33 98.2 F 113 H 20 134/81 99 Nasal Cannula 11/10/23 04:00 98.2 F 100 H 20 110/71 92 Nasal Cannula O2 Flow Rate 11/10/23 11:11 3 11/10/23 11:10 3 11/10/23 08:00 11/10/23 08:00 3 11/10/23 07:33 6 11/10/23 04:00 6 PG Care Time/CCT Total # of Minutes Spent Total Time Spent with Patient: Total time spent is greater than 50% in coordination of care (as documented) at patient's floor/unit and/or counseling patient: Coding Level of Care Code 34714 SUB INP/OBS CARE 2/35MIN Diagnoses Sepsis A41.9 Acute on chronic systolic CHF (congestive heart failure) I50.23 Nephrostomy complication N99.528 Chronic respiratory failure with hypoxia J96.11 Ischemic cardiomyopathy I25.5 CKD (chronic kidney disease) stage 3, GFR 30-59 ml/min N18.30 Cellulitis of foot, left L03.116 Atrial fibrillation I48.91 CLL (chronic lymphocytic leukemia) C91.10 Diabetes mellitus, type 2 E11.9 Abnormal LFTs R79.89 Elevated troponin R79.89 Time Spent (min) 35
[2023-11-10] MEDS: METOPROLOL SUCC 50MG EXT REL TAB PO SCH (20:30)
[2023-11-11 07:12] LABS: Hematocrit (blood only) 39.4 % (42.0-52.0); Hemoglobin 12.4 g/dl (14.0-18.0); Mean Corpuscular Hemoglobin 33.1 pg (25.0-34.0); Mean Corpuscular Hgb Conc 31.5 g/dL (32.0-36.0); Mean Corpuscular Volume 105.1 fL (80.0-100.0); Mean Platelet Volume 11.2 fL (9.4-12.4); Nucleated RBC # (auto) 0.02 K/uL (0.00-0.12); Nucleated RBC % (auto) 0.1 %; Platelet Count 388 K/uL (130-400); RDW Coefficient of Variation 16.7 % (11.5-14.5); Red Blood Count 3.75 M/uL (4.70-6.10); White Blood Count 24.79 K/ul (4.8-10.8)
[2023-11-11 07:17] LABS: Calcium 10.3 mg/dl (8.6-10.3); Potassium 4.5 mmol/L (3.5-5.1)
[2023-11-11 07:23] LABS: BUN Creatinine Ratio 35.8 (10-20); Creatinine Clr Calc Pharmacy 39.5 ml/min; Est GFR (African American) 53.3 ml/min
--- NOTE | 2023-11-11 11:49 | Hospitalist Progress Note ---
Date of Service November 11, 2023 Assessment & Plan (1) Sepsis: Plan: Questionable sepsis suspected source is from lower extremity cellulitis Elevated lactate 2.9 although WBC has been chronically elevated Cultures negative so far Continue empiric IV Zosyn (2) Acute on chronic systolic CHF (congestive heart failure): Plan: Patient has a history of ischemic cardiomyopathy, last echo done 09/11/2023 showed ejection fraction 20 to 25%. Status post ICD. Also has a history of moderate mitral and tricuspid regurgitation and severe pulmonary hypertension Presents from [place] with worsening shortness of breath. Chest x-ray showed evidence of pulmonary congestion. BNP above 3000 Start IV Lasix 40 mg daily Monitor input and output, daily weights Feels a whole lot better today shortness of breath is improved. (3) Nephrostomy complication: Plan: Patient has had problems with nephrostomy malfunction in the past and has always had some blood in the past few days During his last hospital stay, his nephrostomy tubes seem to be draining well. Outpatient, he was scheduled for antegrade nephrostomy study with possible conversion to a stent this November Will find out if urology plans to do the procedure while he is inpatient. (4) Chronic respiratory failure with hypoxia: Plan: Patient is chronically on 3 L oxygen at home Will continue. (5) Ischemic cardiomyopathy: Plan: History of ischemic cardiomyopathy, ejection fraction 20 to 25% status post ICD Continue home medications (6) CKD (chronic kidney disease) stage 3, GFR 30-59 ml/min: Plan: Stable renal function Avoid nephrotoxic's. (7) Cellulitis of foot, left: Plan: Diabetic foot ulcer: Chronic left toes 3-5 affected with cellulitis During his last hospital stay, completed a course of IV antibiotics Will consult wound care for continued wound management. Initiate IV Zosyn (8) Atrial fibrillation: Plan: Atrial fibrillation: Exam permanent A-fib rate controlled Will hold anticoagulation on account of some blood in urine (9) CLL (chronic lymphocytic leukemia): Plan: Chronically elevated WBC No evidence of infection Continue to monitor not on treatment for CLL. (10) Diabetes mellitus, type 2: Plan: Blood glucose under good control On Jardiance at home, will hold Start insulin sliding scale (11) Abnormal LFTs: Plan: Chronically elevated, could be due to passive congestion from heart failure Monitor on continue treatment for heart failure as above. (12) Elevated troponin: Plan: Elevated troponin most likely demand ischemia due to congestive heart failure patient denies chest pain no ST changes on EKG Continue to monitor. Plan Admit to [facility] telemetry,Continue hospitalization Full code Admission and Anticipated Discharge Date Admission Date: November 09, 2023 Subjective Patient seen and examined, Feels a whole lot better, shortness of breath is much improved. Review of Systems Review of Systems: All systems reviewed are negative, apart from the ones contained in the history. Physical Exam Physical Exam: The patient is awake, alert and oriented 3, well developed and well nourished, normocephalic and atraumatic, lying in bed and in no acute distress. HEENT--PERRL, EOMI, mucous membranes and oropharynx mildly dry Neck--supple. No JVD. No bruits. Thyroid normal, trachea midline, no adenopathy. Heart--normal S1 and S2. No murmurs, rubs or gallops. Lungs--clear bilaterally, no respiratory distress, no accessory muscle use. Abdomen--normal bowel sounds and soft. Extremities--Right below the knee amputation Dermatologic--normal skin turgor, normal color, no abnormal lymph nodes, no rash. Neurologic--cranial nerves II through XII grossly intact. Rheumatologic--normal range of motion. Psychiatric--normal affect. Results & Data Results & Data Vital Signs (Past 12 Hours) Vital Signs Temp Pulse Pulse Resp BP Pulse Ox O2 Del Method 11/11/23 08:04 97.3 F L 100 H 20 120/84 96 Nasal Cannula 11/11/23 03:28 97.9 F 105 H 18 127/76 97 Nasal Cannula 11/11/23 00:14 97.7 F 81 18 118/65 95 Nasal Cannula O2 Flow Rate 11/11/23 08:04 4 11/11/23 03:28 4 11/11/23 00:14 4 PG Care Time/CCT Total # of Minutes Spent Total Time Spent with Patient: Total time spent is greater than 50% in coordination of care (as documented) at patient's floor/unit and/or counseling patient: Coding Level of Care Code 58352 SUB INP/OBS CARE 2/35MIN Diagnoses Sepsis A41.9 Acute on chronic systolic CHF (congestive heart failure) I50.23 Nephrostomy complication N99.528 Chronic respiratory failure with hypoxia J96.11 Ischemic cardiomyopathy I25.5 CKD (chronic kidney disease) stage 3, GFR 30-59 ml/min N18.30 Cellulitis of foot, left L03.116 Atrial fibrillation I48.91 CLL (chronic lymphocytic leukemia) C91.10 Diabetes mellitus, type 2 E11.9 Abnormal LFTs R79.89 Elevated troponin R79.89 Time Spent (min) 35
[2023-11-11 12:48] LABS: Thyroid Stimulating Hormone 4.794 uIu/ml (0.300-4.500)
[2023-11-12 06:31] LABS: Hematocrit (blood only) 39.7 % (42.0-52.0); Hemoglobin 12.1 g/dl (14.0-18.0); Mean Corpuscular Hemoglobin 32.6 pg (25.0-34.0); Mean Corpuscular Hgb Conc 30.5 g/dL (32.0-36.0); Mean Platelet Volume 10.8 fL (9.4-12.4); Platelet Count 339 K/uL (130-400); RDW Coefficient of Variation 16.5 % (11.5-14.5); RDW Standard Deviation 64.7 fL (36.4-46.3); Red Blood Count 3.71 M/uL (4.70-6.10); White Blood Count 20.16 K/ul (4.8-10.8)
[2023-11-12 06:47] LABS: BUN Creatinine Ratio 28.4 (10-20); C Reactive Protein 17.85 mg/dl (0-0.5); Calcium 10.2 mg/dl (8.6-10.3); Creatinine Clr Calc Pharmacy 37.7 ml/min; Est GFR (African American) 50.4 ml/min; Est GFR (Non-African American) 43.5 ml/min; Potassium 4.2 mmol/L (3.5-5.1)
[2023-11-12] MEDS: ACETAMINOPHEN 325 MG TAB PO PRN (08:49)
--- NOTE | 2023-11-12 10:48 | XRay Report ---
XR foot LT min 3V routine CLINICAL HISTORY: r/o osteomyelitis COMPARISON: CTA of the abdomen and pelvis with runoff July 12, 2023. FINDINGS: Alignment of the left foot is anatomic. Tarsometatarsal joints are intact. There are no fr actures. No bony erosion is identified. Extensive vascular calcification is incidentally noted. There is a plantar calcaneal spur. There are mild degenerative changes within multiple articulations of th e left foot. IMPRESSION: No evidence for osteomyelitis within the left foot. ACT 112: Negative or not required by law. Electronically signed by: Biju Lr M.D. 11/12/2023 10:47 AM
--- NOTE | 2023-11-12 12:11 | Hospitalist Progress Note ---
Date of Service November 12, 2023 Assessment & Plan (1) Sepsis: Plan: Questionable sepsis suspected source is from left 4th toe wound On admission,Elevated lactate 2.9 although WBC has been chronically elevated from CLL Also elevated CRP Cultures negative so far X-ray of the foot did not show any evidence of osteomyelitis. Continue empiric IV Zosyn Continue wound care (2) Acute on chronic systolic CHF (congestive heart failure): Plan: Patient has a history of ischemic cardiomyopathy, last echo done 09/11/2023 showed ejection fraction 20 to 25%. Status post ICD. Also has a history of moderate mitral and tricuspid regurgitation and severe pulmonary hypertension Presents from [place] with worsening shortness of breath. Chest x-ray showed evidence of Worsening pulmonary edema congestion. BNP above 3000 On IV Lasix 40 mg daily Monitor input and output, daily weights Feels a whole lot better today shortness of breath is improved. (3) Nephrostomy complication: Plan: Patient has had problems with nephrostomy malfunction in the past and has always had some blood in the past few days During his last hospital stay, his nephrostomy tubes seem to be draining well. Outpatient, he was scheduled for antegrade nephrostomy study with possible conversion to a stent this November Will find out if urology plans to do the procedure while he is inpatient. (4) Chronic respiratory failure with hypoxia: Plan: Patient is chronically on 3 L oxygen at home Will continue. (5) Cellulitis of foot, left: Plan: Diabetic foot ulcer: Chronic left toes 3-5 affected with cellulitis During his last hospital stay, completed a course of IV antibiotics Will consult wound care for continued wound management. Initiate IV Zosyn X-ray of the foot did not show any evidence of osteomyelitis (6) Ischemic cardiomyopathy: Plan: History of ischemic cardiomyopathy, ejection fraction 20 to 25% status post ICD Continue home medications (7) CKD (chronic kidney disease) stage 3, GFR 30-59 ml/min: Plan: Stable renal function Avoid nephrotoxic's. (8) Atrial fibrillation: Plan: Atrial fibrillation: Exam permanent A-fib rate controlled Will hold anticoagulation on account of some blood in urine (9) CLL (chronic lymphocytic leukemia): Plan: Chronically elevated WBC No evidence of infection Continue to monitor not on treatment for CLL. (10) Diabetes mellitus, type 2: Plan: Blood glucose under good control On Jardiance at home, will hold Start insulin sliding scale (11) Abnormal LFTs: Plan: Chronically elevated, could be due to passive congestion from heart failure Monitor on continue treatment for heart failure as above. (12) Elevated troponin: Plan: Elevated troponin most likely demand ischemia due to congestive heart failure patient denies chest pain no ST changes on EKG Continue to monitor. Plan Admit to [facility] telemetry,Continue hospitalization Full code Admission and Anticipated Discharge Date Admission Date: November 09, 2023 Subjective Patient seen and examined, Feels a whole lot better, shortness of breath is much improved. Review of Systems Review of Systems: All systems reviewed are negative, apart from the ones contained in the history. Physical Exam Physical Exam: The patient is awake, alert and oriented 3, well developed and well nourished, normocephalic and atraumatic, lying in bed and in no acute distress. HEENT--PERRL, EOMI, mucous membranes and oropharynx mildly dry Neck--supple. No JVD. No bruits. Thyroid normal, trachea midline, no adenopathy. Heart--normal S1 and S2. No murmurs, rubs or gallops. Lungs--clear bilaterally, no respiratory distress, no accessory muscle use. Abdomen--normal bowel sounds and soft. Extremities--Right below the knee amputation Dermatologic--normal skin turgor, normal color, no abnormal lymph nodes, no r josh. Neurologic--cranial nerves II through XII grossly intact. Rheumatologic--normal range of motion. Psychiatric--normal affect. Results & Data Results & Data Vital Signs (Past 12 Hours) Vital Signs Temp Pulse Resp BP BP Pulse Ox O2 Del Method 11/12/23 11:42 97.5 F L 83 18 115/78 96 Room Air 11/12/23 07:52 97.5 F L 100 H 18 142/76 H 94 Nasal Cannula 11/12/23 04:38 97.7 F 87 20 100/64 96 Nasal Cannula 11/12/23 00:54 98.1 F 96 H 20 120/77 96 Nasal Cannula O2 Flow Rate 11/12/23 11:42 11/12/23 07:52 4 11/12/23 04:38 4 11/12/23 00:54 4 PG Care Time/CCT Total # of Minutes Spent Total Time Spent with Patient: Total time spent is greater than 50% in coordination of care (as documented) at patient's floor/unit and/or counseling patient: Coding Level of Care Code 46780 SUB INP/OBS CARE 2MIN Diagnoses Sepsis A41.9 Acute on chronic systolic CHF (congestive heart failure) I50.23 Nephrostomy complication N99.528 Chronic respiratory failure with hypoxia J96.11 Cellulitis of foot, left L03.116 Ischemic cardiomyopathy I25.5 CKD (chronic kidney disease) stage 3, GFR 30-59 ml/min N18.30 Atrial fibrillation I48.91 CLL (chronic lymphocytic leukemia) C91.10 Diabetes mellitus, type 2 E11.9 Abnormal LFTs R79.89 Elevated troponin R79.89 Time Spent (min) 35
--- NOTE | 2023-11-12 15:53 | Urology Consultation ---
Date of Consultation November 12, 2023 Assessment & Plan (1) Hematuria: (2) Nephrostomy present: Plan 73 yo/M who presented to the ED on 11/09/2023 with worsening shortness of breath. He is admitted to medicine service with acute on chronic CHF and questionable sepsis suspected source from left toe wound. Urology consulted for evaluation for antegrade nephrostomy study. Pt afebrile, normotensive, mildly tachycardic, on O2 via NC. Labs reviewed-WBC 20.16, hemoglobin 12.1, creatinine 1.55. Continue to trend. Blood cultures prelim no growth. Nephrostomy tube draining rust colored urine. Continue to monitor. OK to flush as needed with injectable saline. If the nephrostomy tube becomes fully clogged, he would need transfer for exchange. Voiding spontaneously. Urine was clear yellow in urinal. Continue to monitor. Bladder scan/PVR PRN. Continue supportive care, antibiotic therapy, and management per primary team. No plan for acute intervention. Will plan for outpatient procedure as scheduled on 11/28/23. Urology will follow peripherally. Please call with any questions or concerns. Plan reviewed with Dr. Butler, on-call urologist. History of Present Illness Attending Physician: Joe Rouse MD History of Present Illness 73 year old male who presented to the ED on 11/09/2023 with worsening shortness of breath. He is admitted to medicine service with acute on chronic CHF and questionable sepsis suspected source from left toe wound. Urology consulted for evaluation for antegrade nephrostomy study Patient is well known to the urology service, follows with Dr. Butler. 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 He previously has had tumor involving the left ureteral orifice causing chronic hydronephrosis. He had a nephrostomy tube placed in June 2023. Patient seen at bedside today. Awake, resting in bed on arrival. No acute distress. Left nephrostomy tube draining rust colored urine. He is voiding spontaneously in urinal, urine is clear yellow. No reported pain at present. Denies fever, chills, nausea, vomiting. Allergies Allergy/AdvReac Type Severity Reaction Status Date / Time enalapril Allergy Severe Angioedema Verified 11/09/23 16:59 brimonidine [From Combigan] Allergy Intermediate Hives Verified 11/09/23 16:59 timolol Allergy Intermediate Hives Verified 11/09/23 16:59 Home Medications Medication Instructions Recorded Confirmed Type aspirin 81 mg tablet,delayed 81 mg PO QAM 11/01/22 11/09/23 History release atorvastatin 40 mg tablet 40 mg PO HS 11/01/22 11/09/23 History budesonide 160 mcg-glycopyr 9 2 inh inhalation BID 11/01/22 11/09/23 History mcg-formot 4.8 mcg/actuation HFA inhaler (Breztri Aerosphere) calcium carbonate 600 mg PO QAM 11/01/22 11/09/23 History cyanocobalamin (vitamin B-12) 1,000 mcg PO QAM 11/01/22 11/09/23 History 1,000 mcg tablet empagliflozin 10 mg tablet 10 mg PO QAM 11/01/22 11/09/23 History (Jardiance) ferrous sulfate 27 mg iron tablet 27 mg PO QAM 11/01/22 11/09/23 History psyllium husk 3.4 gram/5.4 gram 1 tbsp PO QAM 11/01/22 11/09/23 History oral powder (Metamucil) apixaban 5 mg tablet (Eliquis) 5 mg PO BIDM 05/03/23 11/09/23 History multivitamin 1 tab PO QAM 07/09/23 11/09/23 History diclofenac sodium 1 % topical gel 4 g EXT TID #100 grams 09/13/23 11/09/23 Rx (Voltaren Arthritis Pain) bisacodyl 10 mg rectal suppository 10 mg WV DAILY PRN constipation 10/16/23 11/09/23 History duloxetine 30 mg capsule,delayed 30 mg PO QAM 10/16/23 11/09/23 History release sprinkle gabapentin 100 mg capsule 100 mg PO TID 10/16/23 11/09/23 History guaifenesin 400 mg tablet 400 mg PO Q8H PRN Congestion 10/16/23 11/09/23 History magnesium hydroxide 400 mg/5 mL 30 ml PO DAILY PRN NO BM 3 DAYS 10/16/23 11/09/23 History oral suspension (Milk of Magnesia) melatonin 3 mg tablet 3 mg PO HS Sleep 10/16/23 11/09/23 History metoprolol succinate 25 mg 25 mg PO QPM 10/16/23 11/09/23 History tablet,extended release 24 hr oxycodone 5 mg tablet 5 mg PO Q6H PRN Pain 10/16/23 11/09/23 History ropinirole 0.25 mg tablet 0.25 mg PO HS 10/16/23 11/09/23 History spironolactone 25 mg tablet 25 mg PO QAM 10/16/23 11/09/23 History Gelatein 20 1 ea PO BIDM 11/01/23 11/09/23 History acetaminophen 325 mg tablet 650 mg PO Q6H PRN PAIN/FEVER 11/01/23 11/09/23 History (Tylenol) furosemide 20 mg tablet (Lasix) 20 mg PO QAM 11/01/23 11/09/23 History sodium chloride 0.9 % 20 ml TID 11/01/23 11/09/23 History Diabetic Shake 1 can PO BIDM 11/09/23 11/09/23 History ciprofloxacin HCl 500 mg tablet 500 mg PO DAILY 11/09/23 11/09/23 History (Cipro) nitroglycerin 0.4 mg sublingual 0.4 mg sublingual DIRECTED PRN 11/09/23 11/09/23 History tablet (Nitrostat) Chest Pain sodium chloride 0.65 % nasal spray 2 spray intranasal Q8H PRN Dry 11/09/23 11/09/23 History aerosol (Saline Nasal) Nasal Passages Patient History Medical History On home oxygen therapy 3L via continuous [facility] home resident resident of [facility] Diabetic foot ulcer Gout Pulmonary hypertension Tricuspid regurgitation Mitral regurgitation Dehiscence of wound CKD (chronic kidney disease) stage 3, GFR 30-59 ml/min Atrial fibrillation On Eliquis s/p ablation 2017 Bladder carcinoma bcg treatments Fall Peripheral arterial disease Chronic respiratory failure with hypoxia ICD (implantable cardioverter-defibrillator) in place 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 Ortega Dyslipidemia History of gout Hard of hearing No hearing aids Myocardial Infarction 1996 & 2016 Chronic obstructive pulmonary disease 3L via continuous Surgical History Nephrostomy status S/P below knee amputation History of bladder surgery TURBT History of anesthesia reaction slow to wake History of bone marrow biopsy Right node Lymph node biopsy (04/23/23)- CLL/SLL, negative for metastatic carcinoma History of colonoscopy H/O wisdom tooth extraction History of tonsillectomy History of adenoidectomy History of cataract surgery bilateral S/P ICD (internal cardiac defibrillator) procedure Implanted 2021>last checked February 2022 ? type S/P ablation of atrial fibrillation S/P angioplasty no stents S/P CABG x 2 2017 Family History Other No family history of adverse response to anesthesia Social History Smoking Status: Former smoker Second Hand Exposure: No; Do You Dip or Chew Tobacco: No; Hx Alcohol Use: No Hx Substance Use: No Preferred Language: Greenlandic Communication Ability: Effective Group Reservations Coordinator Required: No Beliefs That Will Affect Care: None Current Living Situation: Personal Care Facility Current Living Situation Comment: Home Lin Feels Safe at Home: Yes Assistive Devices: Mechanical Lift, Oxygen - Continuous and Wheelchair Review of Systems Review of Systems: All systems reviewed & are unremarkable except as noted in HPI & below Physical Exam Constitutional: no acute distress Neck: normal visual inspection Respiratory: no respiratory distress and no labored breathing Gastrointestinal (Abdomen): Inspection/Auscultation: abdomen not distended Musculoskeletal: RLE amputation Neurologic: awake Psychiatric: Orientation: alert and oriented x 3 Genitourinary: Left nephrostomy tube draining rust colored urine. Results & Data Vital Signs (Past 12 Hours) Vital Signs Temp Pulse Resp BP BP Pulse Ox O2 Del Method 11/12/23 11:42 36.4 C L 83 18 115/78 96 Room Air 11/12/23 08:00 Nasal Cannula 11/12/23 07:52 36.4 C L 100 H 18 142/76 H 94 Nasal Cannula 11/12/23 04:38 36.5 C 87 20 100/64 96 Nasal Cannula O2 Flow Rate 11/12/23 11:42 11/12/23 08:00 4 11/12/23 07:52 4 11/12/23 04:38 4 PG Care Time/CCT Total # of Minutes Spent Total Time Spent with Patient: Total time spent is greater than 50% in coordination of care (as documented) at patient's floor/unit and/or counseling patient: Coding Level of Care Code 02155 INT INP/OBS CARE 2/55MIN Diagnoses Hematuria R31.9 Nephrostomy present Z93.6
[2023-11-13 06:35] LABS: Hematocrit (blood only) 36.7 % (42.0-52.0); Hemoglobin 11.4 g/dl (14.0-18.0); Mean Corpuscular Hemoglobin 32.1 pg (25.0-34.0); Mean Corpuscular Hgb Conc 31.1 g/dL (32.0-36.0); Mean Corpuscular Volume 103.4 fL (80.0-100.0); Mean Platelet Volume 11.1 fL (9.4-12.4); Platelet Count 342 K/uL (130-400); RDW Coefficient of Variation 16.4 % (11.5-14.5); RDW Standard Deviation 62.4 fL (36.4-46.3); Red Blood Count 3.55 M/uL (4.70-6.10); White Blood Count 18.18 K/ul (4.8-10.8)
[2023-11-13 06:56] LABS: C Reactive Protein 14.09 mg/dl (0-0.5); Calcium 9.6 mg/dl (8.6-10.3); Creatinine Clr Calc Pharmacy 41.5 ml/min; Est GFR (African American) 56.5 ml/min; Est GFR (Non-African American) 48.7 ml/min
--- NOTE | 2023-11-13 21:26 | Hospitalist Progress Note ---
Date of Service November 13, 2023 Assessment & Plan (1) Sepsis: Plan: Questionable sepsis suspected source is from left 4th toe wound On admission, Elevated lactate 2.9 although WBC has been chronically elevated from CLL Also elevated CRP Cultures negative so far X-ray of the foot did not show any evidence of osteomyelitis. Continue empiric IV Zosyn Continue wound care. (2) Acute on chronic systolic CHF (congestive heart failure): Plan: Patient has a history of ischemic cardiomyopathy, last echo done 09/11/2023 showed ejection fraction 20 to 25%. Status post ICD. Also has a history of moderate mitral and tricuspid regurgitation and severe pulmonary hypertension Presents from [place] with worsening shortness of breath. Chest x-ray showed evidence of Worsening pulmonary edema congestion. BNP above 3000, will be rechecked in AM On IV Lasix 40 mg daily Monitor input and output, daily weights (3) Nephrostomy complication: Plan: Patient has had problems with nephrostomy malfunction in the past and has always had some blood in the past few days During his last hospital stay, his nephrostomy tubes seem to be draining well. Outpatient, he was scheduled for antegrade nephrostomy study with possible conversion to a stent this November Urology plans to do this as an outpatient. (4) Chronic respiratory failure with hypoxia: Plan: Patient is chronically on 3 L oxygen at home Will continue. (5) Cellulitis of foot, left: Plan: Diabetic foot ulcer: Chronic left toes 3-5 affected with cellulitis During his last hospital stay, completed a course of IV antibiotics Will consult wound care for continued wound management. Initiate IV Zosyn X-ray of the foot did not show any evidence of osteomyelitis (6) Ischemic cardiomyopathy: Plan: History of ischemic cardiomyopathy, ejection fraction 20 to 25% status post ICD Continue home medications (7) CKD (chronic kidney disease) stage 3, GFR 30-59 ml/min: Plan: Stable renal function Avoid nephrotoxic's. (8) Atrial fibrillation: Plan: Atrial fibrillation: Exam permanent A-fib rate controlled Will hold anticoagulation on account of some blood in urine (9) CLL (chronic lymphocytic leukemia): Plan: Chronically elevated WBC No evidence of infection Continue to monitor not on treatment for CLL. (10) Diabetes mellitus, type 2: Plan: Blood glucose under good control On Jardiance at home, will hold Start insulin sliding scale (11) Abnormal LFTs: Plan: Chronically elevated, could be due to passive congestion from heart failure Monitor on continue treatment for heart failure as above. (12) Elevated troponin: Plan: Elevated troponin most likely demand ischemia due to congestive heart failure patient denies chest pain no ST changes on EKG Continue to monitor. Plan Admit to [facility] telemetry,Continue hospitalization Full code Admission and Anticipated Discharge Date Admission Date: November 09, 2023 Subjective 73 yo male reports no new symptoms. Patient feels weak. Review of Systems Review of Systems: All systems reviewed & are unremarkable except as noted in HPI & below Physical Exam Physical Exam: The patient is normocephalic and atraumatic, lying in bed and in no acute distress. HEENT--PERRL, EOMI Neck--supple. No JVD. No bruits. Thyroid normal, trachea midline, no adenopathy. Heart--normal S1 and S2. No murmurs, rubs or gallops. Lungs--clear bilaterally, no respiratory distress, no accessory muscle use. Abdomen--normal bowel sounds and soft. Extremities--Right below the knee amputation Dermatologic--normal skin turgor, normal color, no abnormal lymph nodes, no rash. Neurologic--cranial nerves II through XII grossly intact. Rheumatologic--normal range of motion. Psychiatric--normal affect. Results & Data Results & Data Vital Signs (Past 12 Hours) Vital Signs Temp Pulse Pulse Resp BP Pulse Ox O2 Del Method 11/13/23 19:02 36.3 C L 101 H 18 131/75 92 Nasal Cannula 11/13/23 15:47 36.4 C L 88 17 118/71 95 Nasal Cannula 11/13/23 15:03 89 11/13/23 11:42 96 H 11/13/23 11:38 36.8 C 91 H 17 109/73 96 Nasal Cannula O2 Flow Rate 11/13/23 19:02 4 11/13/23 15:47 2 11/13/23 15:03 11/13/23 11:42 11/13/23 11:38 2 PG Care Time/CCT Total # of Minutes Spent Total Time Spent with Patient: Total time spent is greater than 50% in coordination of care (as documented) at patient's floor/unit and/or counseling patient: Coding Level of Care Code 03782 SUB INP/OBS CARE 2/35MIN Diagnoses Sepsis A41.9 Acute on chronic systolic CHF (congestive heart failure) I50.23 Nephrostomy complication N99.528 Chronic respiratory failure with hypoxia J96.11 Cellulitis of foot, left L03.116 Ischemic cardiomyopathy I25.5 CKD (chronic kidney disease) stage 3, GFR 30-59 ml/min N18.30 Atrial fibrillation I48.91 CLL (chronic lymphocytic leukemia) C91.10 Diabetes mellitus, type 2 E11.9 Abnormal LFTs R79.89 Elevated troponin R79.89
[2023-11-14 06:34] LABS: Hematocrit (blood only) 39.4 % (42.0-52.0); Hemoglobin 12.4 g/dl (14.0-18.0); Mean Corpuscular Hemoglobin 32.8 pg (25.0-34.0); Mean Corpuscular Hgb Conc 31.5 g/dL (32.0-36.0); Mean Corpuscular Volume 104.2 fL (80.0-100.0); Mean Platelet Volume 10.8 fL (9.4-12.4); Platelet Count 341 K/uL (130-400); RDW Coefficient of Variation 16.6 % (11.5-14.5); RDW Standard Deviation 63.6 fL (36.4-46.3); Red Blood Count 3.78 M/uL (4.70-6.10); White Blood Count 16.85 K/ul (4.8-10.8)
[2023-11-14 06:41] LABS: C Reactive Protein 13.86 mg/dl (0-0.5); Calcium 9.8 mg/dl (8.6-10.3); Creatinine Clr Calc Pharmacy 45.7 ml/min; Est GFR (African American) 63.5 ml/min; Est GFR (Non-African American) 54.8 ml/min
--- NOTE | 2023-11-14 11:47 | Infectious Disease Consult ---
Date of Consultation November 14, 2023 Consultation Information This patient recommendation is based on a telemedicine consult request which was completed asynchronously through chart review and information provided by the primary physician. The patient was not seen or examined today. The evaluation is consultative in nature and all patient care and treatment decisions can either be accepted or rejected by the patient's primary hospital-based treating physician using their own independent medical judgment for their patient. Transplant Surgeon contact information: Please call [facility] . (Phone Number For Physician Use Only) History of Present Illness Attending Physician: Anthony Concepcion Allergies Allergy/AdvReac Type Severity Reaction Status Date / Time enalapril Allergy Severe Angioedema Verified 11/09/23 16:59 brimonidine [From Combigan] Allergy Intermediate Hives Verified 11/09/23 16:59 timolol Allergy Intermediate Hives Verified 11/09/23 16:59 Home Medications Medication Instructions Recorded Confirmed Type aspirin 81 mg tablet,delayed 81 mg PO QAM 11/01/22 11/09/23 History release atorvastatin 40 mg tablet 40 mg PO HS 11/01/22 11/09/23 History budesonide 160 mcg-glycopyr 9 2 inh inhalation BID 11/01/22 11/09/23 History mcg-formot 4.8 mcg/actuation HFA inhaler (Breztri Aerosphere) calcium carbonate 600 mg PO QAM 11/01/22 11/09/23 History cyanocobalamin (vitamin B-12) 1,000 mcg PO QAM 11/01/22 11/09/23 History 1,000 mcg tablet empagliflozin 10 mg tablet 10 mg PO QAM 11/01/22 11/09/23 History (Jardiance) ferrous sulfate 27 mg iron tablet 27 mg PO QAM 11/01/22 11/09/23 History psyllium husk 3.4 gram/5.4 gram 1 tbsp PO QAM 11/01/22 11/09/23 History oral powder (Metamucil) apixaban 5 mg tablet (Eliquis) 5 mg PO BIDM 05/03/23 11/09/23 History multivitamin 1 tab PO QAM 07/09/23 11/09/23 History diclofenac sodium 1 % topical gel 4 g EXT TID #100 grams 09/13/23 11/09/23 Rx (Voltaren Arthritis Pain) bisacodyl 10 mg rectal suppository 10 mg [place] DAILY PRN constipation 10/16/23 11/09/23 History duloxetine 30 mg capsule,delayed 30 mg PO QAM 10/16/23 11/09/23 History release sprinkle gabapentin 100 mg capsule 100 mg PO TID 10/16/23 11/09/23 History guaifenesin 400 mg tablet 400 mg PO Q8H PRN Congestion 10/16/23 11/09/23 History magnesium hydroxide 400 mg/5 mL 30 ml PO DAILY PRN NO BM 3 DAYS 10/16/23 11/09/23 History oral suspension (Milk of Magnesia) melatonin 3 mg tablet 3 mg PO HS Sleep 10/16/23 11/09/23 History metoprolol succinate 25 mg 25 mg PO QPM 10/16/23 11/09/23 History tablet,extended release 24 hr oxycodone 5 mg tablet 5 mg PO Q6H PRN Pain 10/16/23 11/09/23 History ropinirole 0.25 mg tablet 0.25 mg PO HS 10/16/23 11/09/23 History spironolactone 25 mg tablet 25 mg PO QAM 10/16/23 11/09/23 History Gelatein 20 1 ea PO BIDM 11/01/23 11/09/23 History acetaminophen 325 mg tablet 650 mg PO Q6H PRN PAIN/FEVER 11/01/23 11/09/23 History (Tylenol) furosemide 20 mg tablet (Lasix) 20 mg PO QAM 11/01/23 11/09/23 History sodium chloride 0.9 % 20 ml TID 11/01/23 11/09/23 History Diabetic Shake 1 can PO BIDM 11/09/23 11/09/23 History ciprofloxacin HCl 500 mg tablet 500 mg PO DAILY 11/09/23 11/09/23 History (Cipro) nitroglycerin 0.4 mg sublingual 0.4 mg sublingual DIRECTED PRN 11/09/23 11/09/23 History tablet (Nitrostat) Chest Pain sodium chloride 0.65 % nasal spray 2 spray intranasal Q8H PRN Dry 11/09/23 11/09/23 History aerosol (Saline Nasal) Nasal Passages Patient History Medical History On home oxygen therapy 3L via continuous Osteoarthritis [facility] resident resident of [place] Diabetic foot ulcer Gout Pulmonary hypertension Tricuspid regurgitation Mitral regurgitation Dehiscence of wound CKD (chronic kidney disease) stage 3, GFR 30-59 ml/min Atrial fibrillation On Eliquis s/p ablation 2017 Bladder carcinoma bcg treatments Fall Peripheral arterial disease Chronic respiratory failure with hypoxia ICD (implantable cardioverter-defibrillator) in place 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 eligibility examiner, Implant date 10/05/2021 Ischemic cardiomyopathy ICD 09/2021 CAD (coronary artery disease) CABG x 2 07/2016 Angioplasty 1996 CLL (chronic lymphocytic leukemia) known hx x years Diabetes mellitus, type 2 NIDDM SOB (shortness of breath) History of cellulitis Right Great toe- completed antibiotics Swelling and erythema significantly improved but still has mild pain (improved from previous) CHF (congestive heart failure) followed by Dr. Ortgea Dyslipidemia History of gout Hard of hearing No hearing aids Myocardial Infarction 1996 & 2016 Chronic obstructive pulmonary disease 3L via continuous Surgical History Nephrostomy status S/P below knee amputation History of bladder surgery TURBT History of anesthesia reaction slow to wake History of bone marrow biopsy Right node Lymph node biopsy (04/23/23)- CLL/SLL, negative for metastatic carcinoma History of colonoscopy H/O wisdom tooth extraction History of tonsillectomy History of adenoidectomy History of cataract surgery bilateral S/P ICD (internal cardiac defibrillator) procedure Implanted 2021>last checked February 2022 ? type S/P ablation of atrial fibrillation S/P angioplasty no stents S/P CABG x 2 2016 Family History Other No family history of adverse response to anesthesia Social History Smoking Status: Former smoker Second Hand Exposure: No; Do You Dip or Chew Tobacco: No; Hx Alcohol Use: No Hx Substance Use: No Preferred Language: Welsh Communication Ability: Effective Aerodynamics Professor Required: No Beliefs That Will Affect Care: None Current Living Situation: Personal Care Facility Current Living Situation Comment: Home [facility] Feels Safe at Home: Yes Assistive Devices: Mechanical Lift, Oxygen - Continuous and Wheelchair Results & Data Vital Signs (Past 12 Hours) Vital Signs Temp Pulse Pulse Resp BP Pulse Ox O2 Del Method 11/14/23 11:44 36.7 C 96 H 17 120/72 95 Nasal Cannula 11/14/23 07:50 36.3 C L 98 H 17 134/85 95 Nasal Cannula 11/14/23 07:24 98 H 11/14/23 07:24 Nasal Cannula 11/14/23 03:09 36.7 C 96 H 16 130/79 95 Nasal Cannula 11/14/23 00:17 101 H O2 Flow Rate 11/14/23 11:44 4 11/14/23 07:50 4 11/14/23 07:24 11/14/23 07:24 4 11/14/23 03:09 4 11/14/23 00:17
--- NOTE | 2023-11-14 12:10 | XRay Report ---
XR chest 1V portable CLINICAL HISTORY: Hypoxia. COMPARISON STUDY: Chest radiograph November 09, 2023. FINDINGS: Left subclavian pacer/AICD, median sternotomy wires and mediastinal surgical clips are agai n noted. There is cardiomegaly with stable interstitial thickening. No pneumothorax or pleural effusi on is present. There is no consolidation to suggest pneumonia. IMPRESSION: 1. No significant change in appearance of the chest. 2. Stable interstitial thickening. This is likely chronic although mild pulmonary edema could appear similar. ACT 112: Negative or not required by law. Electronically signed by: Biju Lr M.D. 11/14/2023 12:08 PM
--- NOTE | 2023-11-14 20:43 | Hospitalist Progress Note ---
Date of Service November 14, 2023 Assessment & Plan (1) Sepsis: Plan: Questionable sepsis suspected source is from left 4th toe wound On admission, Elevated lactate 2.9 although WBC has been chronically elevated from CLL Also elevated CRP Cultures negative so far X-ray of the foot did not show any evidence of osteomyelitis. Continue empiric IV Zosyn Continue wound care. consulted ID. appreciate input. (2) Acute on chronic systolic CHF (congestive heart failure): Plan: Patient has a history of ischemic cardiomyopathy, last echo done 09/11/2023 showed ejection fraction 20 to 25%. Status post ICD. Also has a history of moderate mitral and tricuspid regurgitation and severe pulmonary hypertension Presents from [place] with worsening shortness of breath. Chest x-ray showed evidence of Worsening pulmonary edema congestion. BNP above 3000, will be rechecked in AM On IV Lasix 40 mg daily, creatinine is slightly better. Monitor input and output, daily weights (3) Nephrostomy complication: Plan: Patient has had problems with nephrostomy malfunction in the past and has always had some blood in the past few days During his last hospital stay, his nephrostomy tubes seem to be draining well. Outpatient, he was scheduled for antegrade nephrostomy study with possible conversion to a stent this November Urology plans to do this as an outpatient. (4) Chronic respiratory failure with hypoxia: Plan: Acute on chronic hypoxic respiratory failure Patient is chronically on 3 L oxygen at home Currently on 4 liters. Earlier in admission patient was SOB and hypoxic, this was improved. Will continue. (5) Cellulitis of foot, left: Plan: Diabetic foot ulcer: Chronic left toes 3-5 affected with cellulitis During his last hospital stay, completed a course of IV antibiotics Will consult wound care for continued wound management. Initiate IV Zosyn, consulted infectious disease. X-ray of the foot did not show any evidence of osteomyelitis (6) Ischemic cardiomyopathy: Plan: History of ischemic cardiomyopathy, ejection fraction 20 to 25% status post ICD Continue home medications (7) CKD (chronic kidney disease) stage 3, GFR 30-59 ml/min: Plan: Stable renal function Avoid nephrotoxic's. (8) Atrial fibrillation: Plan: Atrial fibrillation: Exam permanent A-fib rate controlled Will hold anticoagulation on account of some blood in urine (9) CLL (chronic lymphocytic leukemia): Plan: Chronically elevated WBC No evidence of infection Continue to monitor not on treatment for CLL. (10) Diabetes mellitus, type 2: Plan: Blood glucose under good control On Jardiance at home, will hold Start insulin sliding scale (11) Abnormal LFTs: Plan: Chronically elevated, could be due to passive congestion from heart failure Monitor on continue treatment for heart failure as above. (12) Elevated troponin: Plan: Elevated troponin most likely demand ischemia due to congestive heart failure patient denies chest pain no ST changes on EKG Continue to monitor. Plan Admit to [facility] telemetry,Continue hospitalization Full code Admission and Anticipated Discharge Date Admission Date: November 09, 2023 Subjective Patient is resting comfortably. Review of Systems Review of Systems: All systems reviewed & are unremarkable except as noted in HPI & below Physical Exam Physical Exam: The patient is normocephalic and atraumatic, lying in bed and in no acute distress. HEENT--PERRL, EOMI Neck--supple. No JVD. No bruits. Thyroid normal, trachea midline, no adenopathy. Heart--normal S1 and S2. No murmurs, rubs or gallops. Lungs--clear bilaterally, no respiratory distress, no accessory muscle use. Abdomen--normal bowel sounds and soft. Extremities--Right below the knee amputation Dermatologic--normal skin turgor, normal color, no abnormal lymph nodes, no rash. Neurologic--cranial nerves II through XII grossly intact. Rheumatologic--normal range of motion. Psychiatric--normal affect. Results & Data Results & Data Vital Signs (Past 12 Hours) Vital Signs Temp Pulse Pulse Resp BP BP Pulse Ox 11/14/23 19:27 36.5 C 98 H 20 139/73 90 11/14/23 15:43 36.4 C L 94 H 18 131/80 95 11/14/23 14:40 94 H 11/14/23 11:44 36.7 C 96 H 17 120/72 95 O2 Del Method O2 Flow Rate 11/14/23 19:27 Nasal Cannula 4 11/14/23 15:43 Nasal Cannula 4 11/14/23 14:40 11/14/23 11:44 Nasal Cannula 4 PG Care Time/CCT Total # of Minutes Spent Total Time Spent with Patient: Total time spent is greater than 50% in coordination of care (as documented) at patient's floor/unit and/or counseling patient: Coding Level of Care Code 66015 SUB INP/OBS CARE MIN Diagnoses Sepsis A41.9 Acute on chronic systolic CHF (congestive heart failure) I50.23 Nephrostomy complication N99.528 Chronic respiratory failure with hypoxia J96.11 Cellulitis of foot, left L03.116 Ischemic cardiomyopathy I25.5 CKD (chronic kidney disease) stage 3, GFR 30-59 ml/min N18.30 Atrial fibrillation I48.91 CLL (chronic lymphocytic leukemia) C91.10 Diabetes mellitus, type 2 E11.9 Abnormal LFTs R79.89 Elevated troponin R79.89
[2023-11-15 06:44] LABS: Hematocrit (blood only) 38.8 % (42.0-52.0); Hemoglobin 12.1 g/dl (14.0-18.0); Mean Corpuscular Hemoglobin 32.4 pg (25.0-34.0); Mean Corpuscular Hgb Conc 31.2 g/dL (32.0-36.0); Mean Platelet Volume 10.7 fL (9.4-12.4); Platelet Count 340 K/uL (130-400); RDW Coefficient of Variation 16.4 % (11.5-14.5); RDW Standard Deviation 62.4 fL (36.4-46.3); Red Blood Count 3.73 M/uL (4.70-6.10); White Blood Count 17.11 K/ul (4.8-10.8)
[2023-11-15 07:03] LABS: BUN Creatinine Ratio 26.4 (10-20); C Reactive Protein 13.11 mg/dl (0-0.5); Est GFR (African American) 65.3 ml/min; Est GFR (Non-African American) 56.4 ml/min; Potassium 3.7 mmol/L (3.5-5.1)
--- NOTE | 2023-11-15 11:22 | Infectious Disease Consult ---
Date of Consultation November 15, 2023 Assessment & Plan (1) Nephrostomy present: #L foot cellulitis, improved # Sepsis? Resolved #CLL with leukocytosis, appears to be at baseline #Hypoxia, baseline 3L (currently at 4L) 73yo M with h/o afib, chronic respiratory failure on 3L NC, CAD s/p CABG, ICM s/p ICD in 2021, CKD, CLL (WBC ranging 15-20K) bladder cancer s/p multiple TURBT and BCG treatment, moderate MR/TR with pHTN, s/p left nephrostomy 06/25/23, T2DM, severe PVD, recent admissions in 07/2023 including for RLE cellulitis s/p CTX>cefadroxil and then recurrent RLE cellulitis/gangrene s/p BKA on 07/25, recent admissions to hospital in 09/30 and 10/30, with most recent admission for L foot cellulitis, now presenting to [facility] on 11/08 with shortness of breath. ID consulted for evaluation for sepsis. On admission, hypoxic requiring CPAP, afebrile. WBC 25.3, Hb 11.4, platelets 379, CR 1.4 BNP 3K, CRp 17.8, lactate 2.9, AST/ALT 73/465 (much improved from 11/02), 11/08 Blood cultures NG. CXR negative for pneumonia, L foot negative for OM or gas Prior MICRO review 10/31 Ucx PSA (s zosyn, R cefaz), Serratia, R Cefazolin 09/06 Ucx ampS E. faecalis, Corynbacterium, , non director bioinformatics species (S to zosyn) Discussion: Patient appears well, L foot improved, SOB improved. No micro data to guide therapy, Suspect he may have been fluid overloaded with mild cellulitis on L foot. Nephrostomy tube evaluated by Urology and flowing well Recommend: -He is on Zosyn day 7 -Plan to treat through today and dc off at end of today Monitor off abx Please call ID with any questions Will s/o Ladonna Dougherty MD Infectious Diseases (2) Hematuria: (3) Cellulitis of foot, left: Consultation Information Consultation was provided via telemedicine using two-way real-time interactive telecommunication between the patient and the telemedicine provider. For the duration of the visit, the provider was performing the assessment from a different facility than the patient. This includesuse of bluetooth stethoscope forauscultationperformed by the telepresenter that the telemedicine provider can hear if described in the physical exam. Underground Production Foreperson contact information: Please call [facility] . (Phone Number For Physician Use Only) After establishing a telemedicine visit, patient was: Patient was verified with two unique identifiers, Patient/authorized rep acknowledged consent and understanding and Gave permission to continue telehealth session Time Spent with Patient: Initial => 55 min History of Present Illness Reason for Consultation: Sepsis Requesting Physician: Dr. Concepcion Attending Physician: Anthony Concepcion History of Present Illness 73yo M with h/o afib, chronic respiratory failure on 3L NC, CAD s/p CABG, ICM s/p ICD in 2021, CKD, CLL (WBC ranging 15-20K) bladder cancer s/p multiple TURBT and BCG treatment, moderate MR/TR with pHTN, s/p left nephrostomy 06/25/23, T2DM, severe PVD, recent admissions in 07/2023 including for RLE cellulitis s/p CTX>cefadroxil and then recurrent RLE cellulitis/gangrene s/p BKA on 07/25, recent admissions to hospital in 09/30 and 10/30, with most recent admission for L foot cellulitis, now presenting to [facility] on 11/08 with shortness of breath. ID consulted for evaluation for sepsis. On admission, hypoxic requiring CPAP, afebrile. WBC 25.3, Hb 11.4, platelets 379, CR 1.4 BNP 3K, CRp 17.8, lactate 2.9, AST/ALT 73/465 (much improved from 11/02), 11/08 Blood cultures NG. CXR negative for pneumonia, L foot negative for OM or gas Prior MICRO review 10/31 Ucx PSA (s zosyn, R cefaz), Serratia, R Cefazolin 09/06 Ucx ampS E. faecalis, Corynbacterium, , non director bioinformatics species (S to zosyn) Allergies Allergy/AdvReac Type Severity Reaction Status Date / Time enalapril Allergy Severe Angioedema Verified 11/09/23 16:59 brimonidine [From Combigan] Allergy Intermediate Hives Verified 11/09/23 16:59 timolol Allergy Intermediate Hives Verified 11/09/23 16:59 Home Medications Medication Instructions Recorded Confirmed Type aspirin 81 mg tablet,delayed 81 mg PO QAM 11/01/22 11/09/23 History release atorvastatin 40 mg tablet 40 mg PO HS 11/01/22 11/09/23 History budesonide 160 mcg-glycopyr 9 2 inh inhalation BID 11/01/22 11/09/23 History mcg-formot 4.8 mcg/actuation HFA inhaler (Breztri Aerosphere) calcium carbonate 600 mg PO QAM 11/01/22 11/09/23 History cyanocobalamin (vitamin B-12) 1,000 mcg PO QAM 11/01/22 11/09/23 History 1,000 mcg tablet empagliflozin 10 mg tablet 10 mg PO QAM 11/01/22 11/09/23 History (Jardiance) ferrous sulfate 27 mg iron tablet 27 mg PO QAM 11/01/22 11/09/23 History psyllium husk 3.4 gram/5.4 gram 1 tbsp PO QAM 11/01/22 11/09/23 History oral powder (Metamucil) apixaban 5 mg tablet (Eliquis) 5 mg PO BIDM 05/03/23 11/09/23 History multivitamin 1 tab PO QAM 07/09/23 11/09/23 History diclofenac sodium 1 % topical gel 4 g EXT TID #100 grams 09/13/23 11/09/23 Rx (Voltaren Arthritis Pain) bisacodyl 10 mg rectal suppository 10 mg [place] DAILY PRN constipation 10/16/23 11/09/23 History duloxetine 30 mg capsule,delayed 30 mg PO QAM 10/16/23 11/09/23 History release sprinkle gabapentin 100 mg capsule 100 mg PO TID 10/16/23 11/09/23 History guaifenesin 400 mg tablet 400 mg PO Q8H PRN Congestion 10/16/23 11/09/23 History magnesium hydroxide 400 mg/5 mL 30 ml PO DAILY PRN NO BM 3 DAYS 10/16/23 11/09/23 History oral suspension (Milk of Magnesia) melatonin 3 mg tablet 3 mg PO HS Sleep 10/16/23 11/09/23 History metoprolol succinate 25 mg 25 mg PO QPM 10/16/23 11/09/23 History tablet,extended release 24 hr oxycodone 5 mg tablet 5 mg PO Q6H PRN Pain 10/16/23 11/09/23 History ropinirole 0.25 mg tablet 0.25 mg PO HS 10/16/23 11/09/23 History spironolactone 25 mg tablet 25 mg PO QAM 10/16/23 11/09/23 History Gelatein 20 1 ea PO BIDM 11/01/23 11/09/23 History acetaminophen 325 mg tablet 650 mg PO Q6H PRN PAIN/FEVER 11/01/23 11/09/23 History (Tylenol) furosemide 20 mg tablet (Lasix) 20 mg PO QAM 11/01/23 11/09/23 History sodium chloride 0.9 % 20 ml TID 11/01/23 11/09/23 History Diabetic Shake 1 can PO BIDM 11/09/23 11/09/23 History ciprofloxacin HCl 500 mg tablet 500 mg PO DAILY 11/09/23 11/09/23 History (Cipro) nitroglycerin 0.4 mg sublingual 0.4 mg sublingual DIRECTED PRN 11/09/23 11/09/23 History tablet (Nitrostat) Chest Pain sodium chloride 0.65 % nasal spray 2 spray intranasal Q8H PRN Dry 11/09/23 0 11/09/23 History aerosol (Saline Nasal) Nasal Passages Patient History Medical History On home oxygen therapy 3L via continuous [facility] home resident resident of [facility] Diabetic foot ulcer Gout Pulmonary hypertension Tricuspid regurgitation Mitral regurgitation Dehiscence of wound CKD (chronic kidney disease) stage 3, GFR 30-59 ml/min Atrial fibrillation On Eliquis s/p ablation 2017 Bladder carcinoma bcg treatments Fall Peripheral arterial disease Chronic respiratory failure with hypoxia ICD (implantable cardioverter-defibrillator) in place 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 inventory checker, Implant date 10/05/2021 Ischemic cardiomyopathy ICD 09/2021 CAD (coronary artery disease) CABG x 2 07/2016 Angioplasty 1996 CLL (chronic lymphocytic leukemia) known hx x years Diabetes mellitus, type 2 NIDDM SOB (shortness of breath) History of cellulitis Right Great toe- completed antibiotics Swelling and erythema significantly improved but still has mild pain (improved from previous) CHF (congestive heart failure) followed by Dr. Ortega Dyslipidemia History of gout Hard of hearing No hearing aids Myocardial Infarction 1996 & 2017 Chronic obstructive pulmonary disease 3L via continuous Surgical History Nephrostomy status S/P below knee amputation History of bladder surgery TURBT History of anesthesia reaction slow to wake History of bone marrow biopsy Right node Lymph node biopsy (04/23/23)- CLL/SLL, negative for metastatic carcinoma History of colonoscopy H/O wisdom tooth extraction History of tonsillectomy History of adenoidectomy History of cataract surgery bilateral S/P ICD (internal cardiac defibrillator) procedure Implanted 2021>last checked February 2022 ? type S/P ablation of atrial fibrillation S/P angioplasty no stents S/P CABG x 2 2016 Family History Other No family history of adverse response to anesthesia Social History Smoking Status: Former smoker Second Hand Exposure: No; Do You Dip or Chew Tobacco: No; Hx Alcohol Use: No Hx Substance Use: No Preferred Language: Citizen Of [place] Communication Ability: Effective Statistics Teacher Required: No Beliefs That Will Affect Care: None Current Living Situation: Personal Care Facility Current Living Situation Comment: Home Lin Feels Safe at Home: Yes Assistive Devices: Mechanical Lift, Oxygen - Continuous and Wheelchair Physical Exam Physical Exam: NAD OOB to chair R BKA incision site well healed L foot with ulcerated lesion closed non-draining Soft NT ND Nephrostomy tube insertion site c/d/i, urine brown/red Results & Data Vital Signs (Past 12 Hours) Vital Signs Temp Pulse Pulse Resp BP BP Pulse Ox 11/15/23 10:00 11/15/23 08:24 36.5 C 99 H 18 121/74 93 11/15/23 07:14 100 H 11/15/23 03:28 36.5 C 92 H 18 126/76 95 11/15/23 00:01 36.5 C 103 H 18 108/73 92 O2 Del Method O2 Flow Rate 11/15/23 10:00 Nasal Cannula 3 11/15/23 08:24 Nasal Cannula 4 11/15/23 07:14 11/15/23 03:28 Nasal Cannula 4 11/15/23 00:01 Nasal Cannula 4 Laboratory Results Short CBC 11/15/23 Range/Units 06:00 WBC 17.11 H (4.8-10.8) K/ul Hgb 12.1 L (14.0-18.0) g/dl Hct 38.8 L (42.0-52.0) % Plt Count 340 (130-400) K/uL BMP 11/15/23 06:00 Sodium 139 Potassium 3.7 Chloride 98 Carbon Dioxide 33 H BUN 33 H Creatinine 1.25 Glucose 121 H Calcium 10.0 Medications Administered Current Inpatient Medications Acetaminophen (Acetaminophen 325 Mg Tab) 650 mg PO Q4H PRN PRN Reason: pain/fever Stop: 12/09/23 19:45 Last Admin: 11/12/23 08:49 Dose: 650 mg Atorvastatin Calcium (Atorvastatin 40 Mg Tab) 40 mg PO PM [facility] Stop: 12/09/23 20:59 Last Admin: 11/14/23 20:23 Dose: 40 mg Bisacodyl (Bisacodyl 10 Mg Supp) 10 mg [place] DAILY PRN PRN Reason: constipation Stop: 12/09/23 19:45 Calcium Carbonate (Calcium Carbonate 1250mg Tab) 1 tab PO QAM [facility] Stop: 12/10/23 08:59 Last Admin: 11/15/23 09:48 Dose: 1 tab Cyanocobalamin (Cyanocobalamin (B-12) 500 Mcg Tablet) 1,000 mcg PO QAM [facility] Stop: 12/10/23 08:59 Last Admin: 11/15/23 09:48 Dose: 1,000 mcg Diclofenac Sodium (Diclofenac Sod 1% Gel 100 Gm Tube) 4 gm EXT TID [facility]; Protocol Stop: 12/09/23 20:59 Last Admin: 11/15/23 09:47 Dose: 4 gm Duloxetine HCl (Duloxetine Hcl 30 Mg Cap) 30 mg PO QAM [facility] Stop: 12/10/23 08:59 Last Admin: 11/15/23 09:48 Dose: 30 mg Fluticasone Furoate (Fluticasone Furoate 200mcg 14 Puffs/Inhaler) 1 puffs INH DAILY [facility] Stop: 12/10/23 08:59 Last Admin: 11/15/23 09:55 Dose: Not Given Furosemide (Furosemide 40 Mg/4 Ml Vial) 40 mg IV DAILY [facility] Stop: 12/09/23 19:59 Last Admin: 11/15/23 09:47 Dose: 40 mg Gabapentin (Gabapentin 100 Mg Cap) 100 mg PO TID [facility] Stop: 12/09/23 20:59 Last Admin: 11/15/23 09:48 Dose: 100 mg Piperacillin Sod/Tazobactam (Sod 4.5 gm/ Dextrose) 100 mls @ 25 mls/hr IV Q8H [facility]; Protocol Stop: 11/17/23 07:44 Last Admin: 11/15/23 09:47 Dose: 25 mls/hr Insulin Aspart (Insulin Aspart Per Unit Charge) 0 units SC ACHS [facility] Stop: 12/09/23 20:59 Last Admin: 11/15/23 09:46 Dose: 4 units Melatonin (Melatonin 3 Mg Tab) 3 mg PO HS [facility] Stop: 12/09/23 20:59 Last Admin: 11/14/23 20:39 Dose: 3 mg Metoprolol Succinate (Metoprolol Succ 50mg Ext Rel Tab) 50 mg PO QPM [facility] Stop: 12/10/23 20:59 Last Admin: 11/14/23 20:23 Dose: 50 mg Oxycodone HCl (Oxycodone Hcl Ir 5 Mg Tab (Immediate Release)) 5 mg PO Q6H PRN PRN Reason: Pain Stop: 11/23/23 19:45 Last Admin: 11/13/23 08:34 Dose: 5 mg Spironolactone (Spironolactone 25 Mg Tab) 25 mg PO QAM [facility] Stop: 12/10/23 08:59 Last Admin: 11/15/23 09:48 Dose: 25 mg Umeclidinium/Vilanterol (Umeclidinium/Vilanterol 62.5/25mcg 7 Puffs/Inhaler) 1 puffs INH DAILY [facility] Stop: 12/10/23 08:59 Last Admin: 11/15/23 09:55 Dose: Not Given
[2023-11-15 13:21] LABS: Magnesium 1.9 mg/dl (1.7-2.4)
--- NOTE | 2023-11-15 22:46 | Hospitalist Progress Note ---
Date of Service November 15, 2023 Assessment & Plan (1) Sepsis: Plan: Questionable sepsis suspected source is from left 4th toe wound On admission, Elevated lactate 2.9 although WBC has been chronically elevated from CLL Also elevated CRP Cultures negative so far X-ray of the foot did not show any evidence of osteomyelitis. Continue empiric IV Zosyn Continue wound care. consulted ID. appreciate input. completed course of antibiotics/ will stop. (2) Acute on chronic systolic CHF (congestive heart failure): Plan: Patient has a history of ischemic cardiomyopathy, last echo done 09/11/2023 showed ejection fraction 20 to 25%. Status post ICD. Also has a history of moderate mitral and tricuspid regurgitation and severe pulmonary hypertension Presents from [place] with worsening shortness of breath. Chest x-ray showed evidence of Worsening pulmonary edema congestion. BNP above 3000, will be rechecked in AM On IV Lasix 40 mg daily, creatinine is slightly better. Monitor input and output, daily weights (3) Nephrostomy complication: Plan: Patient has had problems with nephrostomy malfunction in the past and has always had some blood in the past few days During his last hospital stay, his nephrostomy tubes seem to be draining well. Outpatient, he was scheduled for antegrade nephrostomy study with possible conversion to a stent this November Urology plans to do this as an outpatient. (4) Chronic respiratory failure with hypoxia: Plan: Acute on chronic hypoxic respiratory failure Patient is chronically on 3 L oxygen at home Currently on 4 liters. Earlier in admission patient was SOB and hypoxic, this was improved. Will continue on supplemental oxygen. (5) Cellulitis of foot, left: Plan: Diabetic foot ulcer: Chronic left toes 3-5 affected with cellulitis During his last hospital stay, completed a course of IV antibiotics Will consult wound care for continued wound management. Initiate IV Zosyn, consulted infectious disease. X-ray of the foot did not show any evidence of osteomyelitis (6) Ischemic cardiomyopathy: Plan: History of ischemic cardiomyopathy, ejection fraction 20 to 25% status post ICD Continue home medications (7) CKD (chronic kidney disease) stage 3, GFR 30-59 ml/min: Plan: Stable renal function Avoid nephrotoxic's. (8) Atrial fibrillation: Plan: Atrial fibrillation: Exam permanent A-fib rate controlled Will hold anticoagulation on account of some blood in urine (9) CLL (chronic lymphocytic leukemia): Plan: Chronically elevated WBC No evidence of infection Continue to monitor not on treatment for CLL. (10) Diabetes mellitus, type 2: Plan: Blood glucose under good control On Jardiance at home, will hold Start insulin sliding scale (11) Abnormal LFTs: Plan: Chronically elevated, could be due to passive congestion from heart failure Monitor on continue treatment for heart failure as above. (12) Elevated troponin: Plan: Elevated troponin most likely demand ischemia due to congestive heart failure patient denies chest pain no ST changes on EKG Continue to monitor. Plan Admit to [facility] telemetry,Continue hospitalization Full code Admission and Anticipated Discharge Date Admission Date: November 09, 2023 Subjective Patient continues to be intermittently confused. Review of Systems Review of Systems: All systems reviewed & are unremarkable except as noted in HPI & below Physical Exam Physical Exam: The patient is normocephalic and atraumatic, lying in bed and in no acute distress. HEENT--PERRL, EOMI Neck--supple. No JVD. No bruits. Thyroid normal, trachea midline, no adenopathy. Heart--normal S1 and S2. No murmurs, rubs or gallops. Lungs--clear bilaterally, no respiratory distress, no accessory muscle use. Abdomen--normal bowel sounds and soft. Extremities--Right below the knee amputation Dermatologic--normal skin turgor, normal color, no abnormal lymph nodes, no rash. Neurologic--cranial nerves II through XII grossly intact. Rheumatologic--normal range of motion. Psychiatric--normal affect. Results & Data Results & Data Vital Signs (Past 12 Hours) Vital Signs Temp Pulse Pulse Resp BP BP Pulse Ox 11/15/23 21:20 11/15/23 19:12 36.6 C 102 H 19 131/78 95 11/15/23 15:59 36.7 C 72 17 151/75 H 93 11/15/23 15:33 93 H 11/15/23 11:35 36.3 C L 105 H 18 97/70 L 92 O2 Del Method O2 Flow Rate 11/15/23 21:20 Nasal Cannula 4 11/15/23 19:12 Nasal Cannula 4 11/15/23 15:59 Nasal Cannula 4 11/15/23 15:33 11/15/23 11:35 Nasal Cannula 4 PG Care Time/CCT Total # of Minutes Spent Total Time Spent with Patient: Total time spent is greater than 50% in coordination of care (as documented) at patient's floor/unit and/or counseling patient: Coding Level of Care Code 52928 SUB INP/OBS CARE 2/35MIN Diagnoses Sepsis A41.9 Acute on chronic systolic CHF (congestive heart failure) I50.23 Nephrostomy complication N99.528 Chronic respiratory failure with hypoxia J96.11 Cellulitis of foot, left L03.116 Ischemic cardiomyopathy I25.5 CKD (chronic kidney disease) stage 3, GFR 30-59 ml/min N18.30 Atrial fibrillation I48.91 CLL (chronic lymphocytic leukemia) C91.10 Diabetes mellitus, type 2 E11.9 Abnormal LFTs R79.89 Elevated troponin R79.89
[2023-11-16] MEDS ORDERED: ALBUT/IPRATROP 3MG/0.5MG NEB 3 ML VIAL NEB PRN (04:50)
[2023-11-16 04:59] VITALS: RESP 18
[2023-11-16 05:42] LABS: Base Excess VBG 9.1 mEq/L; HCO3 VBG 35 mmol/L; Oxygen Saturation VBG 70.1 %; PCO2 VBG 53 mmHg (38-50); PO2 VBG 40 mmHg; pH VBG 7.43 (7.36-7.41)
[2023-11-16 05:47] LABS: Hematocrit (blood only) 40.3 % (42.0-52.0); Hemoglobin 12.9 g/dl (14.0-18.0); Mean Corpuscular Hemoglobin 32.6 pg (25.0-34.0); Mean Corpuscular Volume 101.8 fL (80.0-100.0); Mean Platelet Volume 10.5 fL (9.4-12.4); Platelet Count 336 K/uL (130-400); RDW Coefficient of Variation 16.2 % (11.5-14.5); RDW Standard Deviation 61.3 fL (36.4-46.3); Red Blood Count 3.96 M/uL (4.70-6.10); White Blood Count 19.56 K/ul (4.8-10.8)
[2023-11-16 06:02] LABS: BUN Creatinine Ratio 23.9 (10-20); Calcium 10.2 mg/dl (8.6-10.3); Creatinine Clr Calc Pharmacy 40.8 ml/min; Potassium 3.5 mmol/L (3.5-5.1)
[2023-11-16 07:51] LABS: C Reactive Protein 12.35 mg/dl (0-0.5)
--- NOTE | 2023-11-16 10:10 | CT Scan Report ---
CT OF THE CHEST WITHOUT IV CONTRAST CLINICAL HISTORY: Worsening hypoxia. COMPARISON STUDY: Chest radiograph November 09, 2023 and November 14, 2023. CT DOSE: 319.42 mGy.cm TECHNIQUE: Axial images of the chest were obtained without IV contrast. Images were reviewed in the axial, sagittal, and coronal planes. IV contrast was not administered for this examination. Automat ed exposure control was utilized for the study. A dose lowering technique was utilized adhering to t he principles of ALARA. FINDINGS: Left subclavian [id number] is in place. There are multiple mildly enlarged mediastinal lymph nodes. A prevascular node on image 92 of 245 measures 2.1 x 1.2 cm. A right paratracheal lymph node on image 61 measures 2 x 1 cm. The heart is moderately enlarged. There is extensive coronary art anabel calcification. There is moderate plaque within the thoracic aorta. No pneumothorax or pleural eff usion. Moderate emphysema. Upper lobe predominant interstitial thickening with groundglass opacities and mosaic attenuation are present. Tiny nodular opacities are also present. A few additional left up per lobe densities measure up to 1.8 cm. There is no confluent consolidation. Central airways are pat ent. There is no cavitation. An 8 mm nodule along the minor fissure is likely benign. IMPRESSION: 1. Upper lobe predominant interstitial thickening with groundglass opacities and mosaic attenuation. In addition, numerous tiny upper lobe predominant nodules and a few left upper lobe irregular densiti es which measure up to 1.[address] appearance is nonspecific although could represent pulmonary ed lucas. However, other etiologies such as an infectious process, chronic interstitial disease and hypers ensitivity pneumonitis are also within the differential. Follow-up chest CT in 3 months to ensure res olution is recommended. 2. Emphysema. 3. Multiple mildly enlarged mediastinal lymph nodes which can be assessed on follow-up CT. 4. Cardiomegaly. Extensive coronary artery calcification. ACT 112: Negative or not required by law. Electronically signed by: Biju Lr M.D. 11/16/2023 10:08 AM
[2023-11-16 11:37] VITALS: PULSE 112; TEMP 97.7; O2SAT 90
[2023-11-16 15:57] VITALS: BP 122/77
--- NOTE | 2023-11-18 15:34 | Discharge Summary ---
Discharge Summary Date of Service November 16, 2023 Principal Dx & Hospital Course #1 = Principal Diagnosis (1) Sepsis: Questionable sepsis suspected source is from left 4th toe wound On admission, Elevated lactate 2.9 although WBC has been chronically elevated from CLL Also elevated CRP Cultures negative so far X-ray of the foot did not show any evidence of osteomyelitis. Continue empiric IV Zosyn Continue wound care. consulted ID. appreciate input. completed course of antibiotics/ will stop. (2) Acute on chronic systolic CHF (congestive heart failure): Patient has a history of ischemic cardiomyopathy, last echo done 09/11/2023 showed ejection fraction 20 to 25%. Status post ICD. Also has a history of moderate mitral and tricuspid regurgitation and severe pulmonary hypertension Presents from [place] with worsening shortness of breath. Chest x-ray showed evidence of Worsening pulmonary edema congestion. BNP above 3000, will be rechecked in AM On IV Lasix 40 mg daily, creatinine is slightly better. Monitor input and output, daily weights (3) Nephrostomy complication: Patient has had problems with nephrostomy malfunction in the past and has always had some blood in the past few days During his last hospital stay, his nephrostomy tubes seem to be draining well. Outpatient, he was scheduled for antegrade nephrostomy study with possible conversion to a stent this November Urology plans to do this as an outpatient. (4) Chronic respiratory failure with hypoxia: Acute on chronic hypoxic respiratory failure Patient is chronically on 3 L oxygen at home Currently on 4 liters. Earlier in admission patient was SOB and hypoxic, this was improved. Will continue on supplemental oxygen. (5) Cellulitis of foot, left: Diabetic foot ulcer: Chronic left toes 3-5 affected with cellulitis During his last hospital stay, completed a course of IV antibiotics Will consult wound care for continued wound management. Initiate IV Zosyn, consulted infectious disease. X-ray of the foot did not show any evidence of osteomyelitis (6) Ischemic cardiomyopathy: History of ischemic cardiomyopathy, ejection fraction 20 to 25% status post ICD Continue home medications (7) CKD (chronic kidney disease) stage 3, GFR 30-59 ml/min: Stable renal function Avoid nephrotoxic's. (8) Atrial fibrillation: Atrial fibrillation: Exam permanent A-fib rate controlled Will hold anticoagulation on account of some blood in urine (9) CLL (chronic lymphocytic leukemia): Chronically elevated WBC No evidence of infection Continue to monitor not on treatment for CLL. (10) Diabetes mellitus, type 2: Blood glucose under good control On Jardiance at home, will hold Start insulin sliding scale (11) Abnormal LFTs: Chronically elevated, could be due to passive congestion from heart failure Monitor on continue treatment for heart failure as above. (12) Elevated troponin: Elevated troponin most likely demand ischemia due to congestive heart failure patient denies chest pain no ST changes on EKG Continue to monitor. Plan Admit to [facility] telemetry,Continue hospitalization Full code Admission HPI Per Admitting Provider Is a 73-year-old male resident of [place] with a history of right BKA, atrial fibrillation on Eliquis, COPD on home oxygen, left nephrostomy, CAD, ischemic cardiomyopathy status post ICD, type 2 diabetes, who was brought from [place] today on account of worsening shortness of breath. Patient was discharged from this facility on November 04, 2023 after he was treated and managed for acute UTI and also nephrostomy complication with hematuria. According to the patient, even since discharge he has also had some blood in the urine bag however the reason he came to the hospital today was because of worsening shortness of breath. Here in the emergency department chest x-ray was done which showed evidence of pulmonary congestion. He has been started on IV Lasix and will be admitted to the hospital further management. Discharge Exam The patient is normocephalic and atraumatic, lying in bed and in no acute distress. HEENT--PERRL, EOMI Neck--supple. No JVD. No bruits. Thyroid normal, trachea midline, no adenopathy. Heart--normal S1 and S2. No murmurs, rubs or gallops. Lungs--clear bilaterally, no respiratory distress, no accessory muscle use. Abdomen--normal bowel sounds and soft. Extremities--Right below the knee amputation Dermatologic--normal skin turgor, normal color, no abnormal lymph nodes, no rash. Neurologic--cranial nerves II through XII grossly intact. Rheumatologic--normal range of motion. Psychiatric--normal affect. Updated Medication List Medication Instructions Recorded Confirmed Type aspirin 81 mg tablet,delayed 81 mg PO QAM 11/01/22 11/09/23 History release atorvastatin 40 mg tablet 40 mg PO HS 11/01/22 11/09/23 History budesonide 160 mcg-glycopyr 9 2 inh inhalation BID 11/01/22 11/09/23 History mcg-formot 4.8 mcg/actuation HFA inhaler (Breztri Aerosphere) calcium carbonate 600 mg PO QAM 11/01/22 11/09/23 History cyanocobalamin (vitamin B-12) 1,000 mcg PO QAM 11/01/22 11/09/23 History 1,000 mcg tablet empagliflozin 10 mg tablet 10 mg PO QAM 11/01/22 11/09/23 History (Jardiance) ferrous sulfate 27 mg iron tablet 27 mg PO QAM 11/01/22 11/09/23 History psyllium husk 3.4 gram/5.4 gram 1 tbsp PO QAM 11/01/22 11/09/23 History oral powder (Metamucil) apixaban 5 mg tablet (Eliquis) 5 mg PO BIDM 05/03/23 11/09/23 History multivitamin 1 tab PO QAM 07/09/23 11/09/23 History diclofenac sodium 1 % topical gel 4 g EXT TID #100 grams 09/13/23 11/09/23 Rx (Voltaren Arthritis Pain) bisacodyl 10 mg rectal suppository 10 mg TN DAILY PRN constipation 10/16/23 11/09/23 History duloxetine 30 mg capsule,delayed 30 mg PO QAM 10/16/23 11/09/23 History release sprinkle gabapentin 100 mg capsule 100 mg PO TID 10/16/23 11/09/23 History guaifenesin 400 mg tablet 400 mg PO Q8H PRN Congestion 10/16/23 11/09/23 History magnesium hydroxide 400 mg/5 mL 30 ml PO DAILY PRN NO BM 3 DAYS 10/16/23 11/09/23 History oral suspension (Milk of Magnesia) melatonin 3 mg tablet 3 mg PO HS Sleep 10/16/23 11/09/23 History oxycodone 5 mg tablet 5 mg PO Q6H PRN Pain 10/16/23 11/09/23 History ropinirole 0.25 mg tablet 0.25 mg PO HS 10/16/23 11/09/23 History spironolactone 25 mg tablet 25 mg PO QAM 10/16/23 11/09/23 History Gelatein 20 1 ea PO BIDM 11/01/23 11/09/23 History acetaminophen 325 mg tablet 650 mg PO Q6H PRN PAIN/FEVER 11/01/23 11/09/23 History (Tylenol) sodium chloride 0.9 % 20 ml TID 11/01/23 11/09/23 History Diabetic Shake 1 can PO BIDM 11/09/23 11/09/23 History nitroglycerin 0.4 mg sublingual 0.4 mg sublingual DIRECTED PRN 11/09/23 11/09/23 History tablet (Nitrostat) Chest Pain sodium chloride 0.65 % nasal spray 2 spray intranasal Q8H PRN Dry 11/09/23 11/09/23 History aerosol (Saline Nasal) Nasal Passages furosemide 40 mg tablet 40 mg PO DAILY #30 tabs 11/16/23 Rx metoprolol succinate 50 mg 50 mg PO PM #30 tabs 11/16/23 Rx tablet,extended release 24 hr potassium chloride 10 mEq 10 meq PO DAILY #30 tabs 11/16/23 Rx tablet,extended release Hospital Stay Data Consultations 11/09/23 17:04 ED Decision to Admit Stat 11/12/23 12:19 Consult Urology Routine 11/14/23 10:11 Consult Infectious Diseases Routine Diagnostic Imagining Performed 11/16/23 07:28 CT chest diagnostic wo con Urgent Pending Results Patient Have Any Pending Studies at Discharge: No Discharge Instructions Given to Patient (Per Discharging Provider) Call your Primary Care doctor if any of the following symptoms or problems start or get worse: * Shortness of breath or difficulty breathing * Wake up at night short of breath * Chest pain * Cough * Swelling of your hands, feet, or legs * More fatigued or tired with your normal activity * Palpitations - sudden fast heart beats WEIGHT * Weigh yourself every morning after using the bathroom. * Use the same scale. * Wear the same amount of clothing. * Write your weight down on a chart. * Call your Primary Care doctor if you gain more than 2-3 pounds in 1-2 days. MEDICATIONS * Use this discharge instruction sheet for medication instructions. * Take your medications at the time your doctor ordered. * Do not skip a dose of your medicines. * If you miss a dose of medicine, take it as soon as possible, but DO NOT DOUBLE A DOSE. * Read your medicine information when you get home. * Know all of the side effects of your medicine. If in doubt, ask your pharmacist * Call your Primary Care doctor's office if you have any side effects. * Be sure all of your doctors know what medicine and herbs you take (including cold, flu, and herbal medicine). Take the following with you to your follow-up doctor appointments: * Weight Chart * Medication List * List of questions Do not drink excessive alcohol, beer or wine. recommend close followup with PCP in 1-2weeks, recommend followup with heart failure clinic. recommend rechecking bmp and cbc in 1 week. Coding Diagnoses Sepsis A41.9 Acute on chronic systolic CHF (congestive heart failure) I50.23 Nephrostomy complication N99.528 Chronic respiratory failure with hypoxia J96.11 Cellulitis of foot, left L03.116 Ischemic cardiomyopathy I25.5 CKD (chronic kidney disease) stage 3, GFR 30-59 ml/min N18.30 Atrial fibrillation I48.91 CLL (chronic lymphocytic leukemia) C91.10 Diabetes mellitus, type 2 E11.9 Abnormal LFTs R79.89 Elevated troponin R79.89
== END 2023-11-16 17:18 | DRG 871 ==
LOC: ED 14:04 → SUATTDRO 17:17 → EDINP 17:17 → 2W 20:03